=== PATIENT | male | born 1970 | race Hispanic/Latino ===

== ENCOUNTER 2018-01-07 12:43 | Emergency (ER) | payer SELFPAY ==
[2018-01-07 14:12] LABS: Absolute Lymphocytes (CBC) 0.6 K/uL (0.7-4.9); Absolute Monocytes 0.8 K/uL (0.1-1.3); Absolute Neutrophil 12.9 K/uL (1.8-8.0); Basophils % 0.5 % (0-1.3); Hematocrit 41.1 % (39.6-49.0); MCH 25.9 pg (27.0-35.0); MCV 81.9 fL (80-100); MPV 9.6 fL (7.6-11.3); Monocytes % 5.7 % (3.3-12.3); RBC Red Blood Cell Count 5.02 M/uL (4.33-5.43)
[2018-01-07 14:19] LABS: Potassium 4.3 mEq/L (3.6-5.0)
[2018-01-07] MEDS ORDERED: PIPER/TAZO/NS 3.375gm 3.375 GM/100 ML BAG ONE (14:22)
[2018-01-07] MEDS ORDERED: NA CHLORIDE 0.9% 1,000 ML ONE (14:22)
--- NOTE | 2018-01-07 15:03 | RAD REPORT ---
EXAM DESCRIPTION: CT - Soft Tissue Neck W/Contr - 01/07/2018 2:37 pm CLINICAL HISTORY: Sore throat, difficulty speaking, headache, diabetes TECHNIQUE: During dynamic enhancement using 100 milliliters nonionic IV contrast, axial 5 millimeter thick images of the neck were obtained. All CT scans are performed using dose optimization technique as appropriate and may include automated exposure control or mA/KV adjustment according to patient size. FINDINGS: Intracranial portion of the examination is unremarkable. No globe or orbital content abnor mality. Mastoid air cells and paranasal sinuses are without acute finding. No intracranial vascular a bnormality seen. Nasopharyngeal mucosa is symmetric. Masslike thickening is seen in the left-side of the soft palate e xtending inferiorly along the left tonsil. Epiglottis is thickened. There is lobulation and soft tiss ue swelling that continues inferiorly to involve the left-side of the vocal cord. Punctate air densit y is present in the left tonsil. There air densities that extend into the neck soft tissues along the lateral and inferior margin of the thyroid cartilage. A 2.2 x 1.0 focal collection is present in the soft tissues inferior to the thyroid cartilage. This extends along the anterior margin of an otherwi se normal thyroid gland. No parotid or submandibular gland abnormality. Small reactive type lymph nodes are seen in the left-s margarita of the neck. No bulky lymphadenopathy. No destructive bone change. IMPRESSION: Abnormal masslike thickening of the soft tissues extending from the left-side of the sof t palate through the tonsil into the vocal cord. This soft tissue mass component is at least 3-4 cm i n craniocaudal dimension with extension across the midline posterior oropharynx. Abnormal air densities extend from the airway into the soft tissues lateral and inferior to the thyro id cartilage where there is a 2.2 centimeter abscess collection. The abscess collection is positioned along the anterolateral margin between the thyroid cartilage in the thyroid gland. The soft tissue mass and swelling extends across the midline. There is significant narrowing of the s upraglottic airway. While the findings are potentially all infectious in etiology, the collective findings do raise kateryna rn for a primary head and neck malignancy. Multiple left-sided small lymph nodes are present nonspecific. No necrotic lymph node.
[2018-01-07 15:27] LABS: Blood Morphology Comment NOT SEEN (NOT SEEN); Platelet Estimate ADEQ; Urine White Blood Cell Casts OK
[2018-01-07] MEDS ORDERED: FENTANYL CITR 100 MCG/2 ML ONE (15:34)
--- NOTE | 2018-01-07 15:41 | ER ---
Nurse's Notes [facility] Name: Amor Ramírez Jr Age: 47 yrs Sex: Male : 1970 Arrival Date: 01/07/2018 Time: 12:47 Bed 20 Private MD: Diagnosis: Other abscess of pharynx Presentation: 01/07 12:49 Presenting complaint: Presenting complaint: Patient states: Sore throat, difficulty hb speaking, and headache x 3 days. 12:50 Transition of care: patient was not received from another setting of care. Onset of hb symptoms was January 05, 2018. 12:50 Method Of Arrival: Wheelchair hb 12:50 Acuity: YADIEL 3 hb 16:48 Initial Sepsis Screen: Does the patient meet any 2 criteria? No. Patient's initial em sepsis screen is negative. Does the patient have a suspected source of infection? Yes:. Care prior to arrival: None. Historical: - Allergies: 12:52 No Known Allergies; hb - Home Meds: 12:52 Insulin: Novolin R Sub-Q [Active]; Novolin N 100 unit/mL Sub-Q susp [Active]; hb - PMHx: 12:52 Diabetes - NIDDM; hb - PSHx: 12:52 None; hb - Immunization history:: Adult Immunizations up to date. - Social history:: Smoking status: Patient uses tobacco products, denies chronic smoking, but will smoke occasionally. Screenin:50 Abuse screen: Denies threats or abuse. Nutritional screening: No deficits noted. em Tuberculosis screening: No symptoms or risk factors identified. Fall Risk None identified. Assessment: 14:10 General: Appears uncomfortable, Behavior is calm, cooperative. Pain: Complains of pain iw in neck, throat Pain currently is 10 out of 10 on a pain scale. Neuro: Level of Consciousness is awake, alert, obeys commands, Oriented to person, place, time, Moves all extremities. Full function. Respiratory: Airway obstructed, Respiratory effort is even, Respiratory pattern is regular, Breath sounds are clear bilaterally. EENT: Throat is reddened bilaterally with gag reflex present, Reports difficulty swallowing pain when swallowing. 14:10 Derm: Skin is pink, warm \T\ dry. normal. Musculoskeletal: Range of motion: intact in all iw extremities. 15:20 Reassessment: Patient appears in no apparent distress at this time. Patient and/or em family updated on plan of care and expected duration. Pain level reassessed. Patient is alert, oriented x 3, equal unlabored respirations, skin warm/dry/pink. 16:37 Reassessment: Patient appears in no apparent distress at this time. Patient and/or em family updated on plan of care and expected duration. Pain level reassessed. Patient is alert, oriented x 3, equal unlabored respirations, skin warm/dry/pink. c/o pain, Dr. Solis notified, new orders received. 16:50 Reassessment: Patient appears in no apparent distress at this time. report given to em Feroz Burkett RN at [facility], awaiting EMS to transport to facility. 17:15 Reassessment: Patient appears in no apparent distress at this time. Patient and/or em family updated on plan of care and expected duration. Pain level reassessed. Patient is alert, oriented x 3, equal unlabored respirations, skin warm/dry/pink. report given to [facility], pt will be transferred to [facility]. Vital Signs: 12:49 BP 121 / 86; Pulse 123; Resp 16; Temp 100.3(TE); Pulse Ox 100% on R/A; Weight 77.11 kg; hb Height 5 ft. 8 in. (172.72 cm); Pain 10/10; 14:54 Pulse 117; Resp 18; Temp 99.8(O); Pulse Ox 98% on R/A; Pain 10/10; em 16:30 BP 151 / 92; Pulse 124; Resp 20; Pulse Ox 95% on R/A; Pain 8/10; em 12:49 Body Mass Index 25.85 (77.11 kg, 172.72 cm) hb ED Course: 12:47 Patient arrived in ED. mr 12:51 Triage completed. hb 12:52 Arm band placed on left wrist. hb 12:56 Len Solis MD is Attending Physician. gs 12:59 Anderson Quintanilla LVN is Primary Nurse. em 13:50 Patient has correct armband on for positive identification. Bed in low position. Call em light in reach. Side rails up X2. Adult w/ patient. 14:06 Inserted saline lock: 20 gauge in right in left antecubital area, using aseptic iw technique. forearm, using aseptic technique. Blood collected. 14:35 CT completed. Patient taken to an exam room. Patient moved back from CT. cw1 14:37 CT Soft Tissue Neck W/contr In Process Unspecified. EDMS 16:47 No provider procedures requiring assistance completed. Patient transferred, IV remains em in place. Administered Medications: 14:57 Drug: Zosyn 3.375 grams Route: IVPB; Infused Over: 60 mins; Site: right forearm; em 16:49 Follow up: IV Status: Completed infusion; IV Intake: 100ml em 14:57 Drug: NS 0.9% 1000 ml Route: IV; Rate: 1 bolus; Site: right antecubital; em 16:50 Follow up: IV Status: Completed infusion; IV Intake: 1000ml em 15:38 Drug: fentaNYL (PF) 25 mcg Route: IVP; Site: left antecubital; iw 16:03 Follow up: Response: No adverse reaction em 17:07 Drug: fentaNYL (PF) 25 mcg Route: IVP; Site: right forearm; em 17:25 Follow up: Response: No adverse reaction em Intake: 16:49 IV: 100ml; Total: 100ml. em 16:50 IV: 1000ml; Total: 1100ml. em Outcome: 15:40 ER care complete, transfer ordered by . gs 16:49 Transferred by ground EMS to [facility], Transfer form em completed. X-rays sent w/ patient. 16:49 Condition: good 16:49 Instructed on the need for transfer, Demonstrated understanding of instructions. 17:26 Patient left the ED. em Signatures: Dispatcher [employer] EDIL Yenny Baird mr Quintanilla, Anderson, PUTTY AND PATCH WORKER PUTTY AND PATCH WORKER em Kristy Hunt RN RN iw Woodley, Crystal cw1 Verna Bhat RN RN hb Starr, Gregory, MD MD gs Corrections: (The following items were deleted from the chart) 12:51 12:49 Presenting complaint: hb hb 12:52 12:49 Temp 100.3F Temporal; hb hb 15:09 14:10 EENT: Throat iw cynthia
--- NOTE | 2018-01-07 15:41 | EDPHYS ---
Physician Documentation [facility] Name: Amro Ramírez Jr Age: 47 yrs Sex: Male : 1970 Arrival Date: 01/07/2018 Time: 12:47 Bed 20 Private MD: ED Physician Len Solis HPI: 01/07 15:28 This 47 yrs old Male presents to ER via Wheelchair with complaints of Sore gs Throat. 15:34 The patient presents with sore throat, dysphagia. Onset: The symptoms/episode gs began/occurred 4 day(s) ago. Severity of symptoms: At their worst the symptoms were moderate, in the emergency department the symptoms are unchanged. Modifying factors: The symptoms are alleviated by nothing, the symptoms are aggravated by swallowing. Associated signs and symptoms: Pertinent positives: fever. The patient has not experienced similar symptoms in the past. The patient has been recently seen by a physician: out of Town. Historical: - Allergies: 12:52 No Known Allergies; hb - Home Meds: 12:52 Insulin: Novolin R Sub-Q [Active]; Novolin N 100 unit/mL Sub-Q susp [Active]; hb - PMHx: 12:52 Diabetes - NIDDM; hb - PSHx: 12:52 None; hb - Immunization history:: Adult Immunizations up to date. - Social history:: Smoking status: Patient uses tobacco products, denies chronic smoking, but will smoke occasionally. ROS: 15:34 All other systems are negative. gs Exam: 15:34 Head/Face: Normocephalic, atraumatic. Eyes: Pupils equal round and reactive to light, gs extra-ocular motions intact. Lids and lashes normal. Conjunctiva and sclera are non-icteric and not injected. Cornea within normal limits. Periorbital areas with no swelling, redness, or edema. Chest/axilla: Normal chest wall appearance and motion. Nontender with no deformity. No lesions are appreciated. Abdomen/GI: Soft, non-tender, with normal bowel sounds. No distension or tympany. No guarding or rebound. No evidence of tenderness throughout. Back: No spinal tenderness. No costovertebral tenderness. Full range of motion. Skin: Warm, dry with normal turgor. Normal color with no rashes, no lesions, and no evidence of cellulitis. MS/ Extremity: Pulses equal, no cyanosis. Neurovascular intact. Full, normal range of motion. Neuro: Awake and alert, GCS 15, oriented to person, place, time, and situation. Cranial nerves II-XII grossly intact. Motor strength 5/5 in all extremities. Sensory grossly intact. Cerebellar exam normal. Normal gait. 15:34 Constitutional: The patient appears alert, awake. 15:34 ENT: Mouth: mild oral floor swelling nontender, tonsils no mass no uvula shift, submandibular fullness. 15:34 Neck: External neck: swelling, that is mild, of the submental area. 15:34 Respiratory: the patient does not display signs of respiratory distress, Respirations: no acute changes, is not noted, Breath sounds: are clear throughout, stridor, is not appreciated. Vital Signs: 12:49 BP 121 / 86; Pulse 123; Resp 16; Temp 100.3(TE); Pulse Ox 100% on R/A; Weight 77.11 kg; hb Height 5 ft. 8 in. (172.72 cm); Pain 10/10; 14:54 Pulse 117; Resp 18; Temp 99.8(O); Pulse Ox 98% on R/A; Pain 10/10; em 16:30 BP 151 / 92; Pulse 124; Resp 20; Pulse Ox 95% on R/A; Pain 8/10; em 12:49 Body Mass Index 25.85 (77.11 kg, 172.72 cm) hb MDM: 12:59 Patient medically screened. gs 15:34 Differential diagnosis: peritonsillar abscess pharyngitis, retropharyngeal abcess. Data reviewed: vital signs, nurses notes. Response to treatment: the patient's symptoms have mildly improved after treatment. 01/07 13:06 Order name: Strep; Complete Time: 15:25 01/07 13:06 Order name: Flu; Complete Time: 15:25 01/07 13:28 Order name: CBC with Diff; Complete Time: 15:28 01/07 13:28 Order name: Basic Metabolic Panel; Complete Time: 15:25 01/07 13:28 Order name: Blood Culture* 01/07 13:36 Order name: Throat Culture EDPA 01/07 13:28 Order name: CT Soft Tissue Neck W/contr; Complete Time: 15:25 01/07 14:13 Order name: CBC Smear Scan; Complete Time: 15:28 EDMS Administered Medications: 14:57 Drug: Zosyn 3.375 grams Route: IVPB; Infused Over: 60 mins; Site: right forearm; em 16:49 Follow up: IV Status: Completed infusion; IV Intake: 100ml em 14:57 Drug: NS 0.9% 1000 ml Route: IV; Rate: 1 bolus; Site: right antecubital; em 16:50 Follow up: IV Status: Completed infusion; IV Intake: 1000ml em 15:38 Drug: fentaNYL (PF) 25 mcg Route: IVP; Site: left antecubital; iw 16:03 Follow up: Response: No adverse reaction em 17:07 Drug: fentaNYL (PF) 25 mcg Route: IVP; Site: right forearm; em 17:25 Follow up: Response: No adverse reaction em Disposition: 01/07/18 15:40 Transfer ordered to [facility]. Diagnosis is Other abscess of pharynx. - Reason for transfer: Higher level of care. - Accepting physician is young. - Condition is Stable. - Problem is new. - Symptoms are unchanged. Signatures: Dispatcher [employer] EDMS Anderson Quintanilla, FACILITY ASSISTANT FACILITY ASSISTANT Kristy Hunt RN RN Verna Bhat RN RN hb Starr, Gregory, MD MD
[2018-01-07 17:38] VITALS: BP 151/92; O2SAT 95
[2018-01-07 17:39] VITALS: TEMP 99.8
== END 2018-01-07 17:26 | disposition short-term general hospital (02) ==
LOC: ER 12:43
DX: J39.1 Other abscess of pharynx (principal); E11.9 Type 2 diabetes mellitus without complications; Z79.4 Long term (current) use of insulin; Z72.0 Tobacco use
CPT/HCPCS: 36415; 70491; 80048; 82962; 85025; 87040; 87070; 87081; 87804; 99285; J2543; J3010; J7030; Q9967

== ENCOUNTER 2018-07-16 15:48 | Emergency (ER) | payer SELFPAY ==
[2018-07-16] MEDS ORDERED: NA CHLORIDE 0.9% 1,000 ML ONE (16:46)
[2018-07-16] MEDS ORDERED: MEPERIDINE HCL 50 MG/ML AMP ONE (16:46)
[2018-07-16 16:53] LABS: Absolute Lymphocytes (CBC) 1.6 K/uL (0.7-4.9); Absolute Monocytes 0.5 K/uL (0.1-1.3); Basophils % 0.8 % (0-1.3); Eosinophils % 2.9 % (0-4.4); Lymphocytes % 18.9 % (15.3-44.8); MCH 26.8 pg (27.0-35.0); MPV 9.4 fL (7.6-11.3); Monocytes % 6.2 % (3.3-12.3); RBC Red Blood Cell Count 5.06 M/uL (4.33-5.43)
[2018-07-16 17:10] LABS: Potassium 3.7 mmol/L (3.5-5.1)
--- NOTE | 2018-07-16 17:40 | RAD REPORT ---
EXAM DESCRIPTION: CT - Head Brain Wo Cont - 07/16/2018 5:33 pm CLINICAL HISTORY: HEADACHE COMPARISON: Head angio dated 07/16/2018; Soft Tissue Neck W/Contr dated 01/07/2018; Head C Spine Mpr W o Con dated 01/03/2016 TECHNIQUE: All CT scans are performed using dose optimization technique as appropriate and may inclu de automated exposure control or mA/KV adjustment according to patient size. FINDINGS: No intracranial hemorrhage, hydrocephalus or extra-axial fluid collection.No areas of brai n edema or evidence of midline shift. Hyperdense left vitreous noted. The paranasal sinuses and mastoids are clear. The calvarium is intact. IMPRESSION: No acute intracranial abnormality. Hyperdense left vitreous noted which may represent blood product or be related to retinal detachment. Clinical correlation is advised.
--- NOTE | 2018-07-16 17:45 | RAD REPORT ---
EXAM DESCRIPTION: CT - Soft Tissue Neck W/Contr CLINICAL HISTORY: left neck pain, hx of neck abscess COMPARISON: Soft Tissue Neck W/Contr dated 01/07/2018; Head C Spine Mpr Wo Con dated 01/03/[address] scans are performed using dose optimization technique as appropriate and may includ e automated exposure control or mA/KV adjustment according to patient size. FINDINGS: The adenoidal tissues are mildly prominent. Fossa Rosenmller are normal. Parapharyngeal fat triangles are symmetric. Tongue base structures are normal. [place] tonsils appea r moderately enlarged. Epiglottis and aryepiglottic folds are normal. Piriform sinuses are well aerated. A few mildly promin ent jugular chain lymph nodes are seen bilaterally. The vocal cords are normal in appearance. Salivary glands are normal in appearance. Upper lung dominguez are clear. Included intracranial contents are unremarkable. IMPRESSION: A neck abscess is not present. Moderate tonsillar enlargement is noted.
--- NOTE | 2018-07-16 17:47 | RAD REPORT ---
EXAM DESCRIPTION: CT - Head angio - 07/16/2018 5:34 pm CLINICAL HISTORY: facial pain Headache COMPARISON: No comparisons TECHNIQUE: CT angiography of the head was performed with MIPs. All CT scans are performed using dose optimization technique as appropriate and may include automated exposure control or mA/KV adjustment according to patient size. FINDINGS: No evidence of aneurysm is detected. No flow-limiting stenosis or vascular malformation id entified. Antegrade flow is seen in the vertebral arteries. Antegrade flow is seen in both vertebral arteries, mildly left-sided dominant. The visualized dural venous sinuses are patent. IMPRESSION: No significant flow abnormality is detected.
[2018-07-16] MEDS ORDERED: IBUPROFEN 400 MG TAB ONE (18:15)
[2018-07-16] MEDS ORDERED: CLINDAMYCIN HCL 150 MG CAP ONE (18:15)
[2018-07-16] MEDS ORDERED: DEXAMETHASONE 4 MG/ML VIAL ONE (18:16)
[2018-07-16] MEDS ORDERED: NA CHLORIDE 0.9% 50 ML IV ONE (18:16)
--- NOTE | 2018-07-16 18:29 | EDPHYS ---
Physician Documentation [facility] Name: Amor Ramírez Jr Age: 48 yrs Sex: Male : 1970 Arrival Date: 07/16/2018 Time: 15:53 Bed 26 Private MD: ED Physician Tanner Cortes HPI: 07/16 16:26 This 48 yrs old Male presents to ER via Wheelchair with complaints of rn headache, neck pain. 16:26 The patient complains of pain to the left evangelical and left jaw. Onset: The rn symptoms/episode began/occurred 1 hour(s) ago. Associated signs and symptoms: Pertinent positives: This patient does not have any pertinent positive signs or symptoms associated with a headache. Pertinent negatives: altered mental status, fever, neck stiffness, rash, vision changes, vision loss, vomiting. Severity of symptoms: At its worst the pain was moderate, in the emergency department the pain is unchanged. The patient has experienced a previous episode. Reports sudden onset left neck pain, radiates up to head, having neck and head pain, no trauma, no fever, similar episode in past when had neck abscess that required drainage in OR, so came in for eval. No trouble breathing or swallowing. NO chest pain. No focal neurological complaint. . Historical: - Allergies: 16:08 NKDA; iw - PMHx: 16:08 Diabetes - IDDM; iw - PSHx: 16:08 left eye; throat; iw - Immunization history:: Adult Immunizations up to date. - Social history:: Smoking status: Patient/guardian denies using tobacco. - Ebola Screening: : Patient negative for fever greater than or equal to 101.5 degrees Fahrenheit, and additional compatible Ebola Virus Disease symptoms Patient denies exposure to infectious person Patient denies travel to an Ebola-affected area in the 21 days before illness onset No symptoms or risks identified at this time. - Family history:: not pertinent. - Hospitalizations: : No recent hospitalization is reported. ROS: 16:26 Constitutional: Negative for fever, chills, and weight loss, Eyes: Negative for injury, rn pain, redness, and discharge, Neck: + left neck pain Cardiovascular: Negative for chest pain, palpitations, and edema, Respiratory: Negative for shortness of breath, cough, wheezing, and pleuritic chest pain, Abdomen/GI: Negative for abdominal pain, nausea, vomiting, diarrhea, and constipation, MS/Extremity: Negative for injury and deformity, Skin: Negative for injury, rash, and discoloration, Neuro: + headache, no weakness/numbness Exam: 16:26 Constitutional: This is a well developed, well nourished patient who is awake, alert, rn blotting his face with wet towels. Head/Face: Normocephalic, atraumatic. Eyes: Botyh pupils are both surgically corrected, reactive to light, full EOMI. ENT: No pharyngeal abnormality, no stridor, MMM Neck: + bilateral cervical tender LAD, no crepitus, no fluctuant mass Cardiovascular: Regular rate and rhythm with a normal S1 and S2. No pulse deficits. Respiratory: Lungs have equal breath sounds bilaterally, clear to auscultation. No increased work of breathing, no retractions or nasal flaring. Abdomen/GI: Soft, non-tender, No evidence of tenderness throughout. MS/ Extremity: Pulses equal, no cyanosis. Neurovascular intact. Neuro: Awake and alert, GCS 15, oriented to person, place, time, and situation. Cranial nerves II-XII grossly intact. Motor strength 5/5 in all extremities. Sensory grossly intact. Vital Signs: 16:08 BP 157 / 105; Pulse 96; Resp 16; Temp 97.8(O); Pulse Ox 99% on R/A; Weight 83.01 kg; iw Height 5 ft. 9 in. (175.26 cm); Pain 10/10; 16:10 BP 159 / 103; Pulse 99; Resp 18; Pulse Ox 99% on R/A; tl3 17:20 BP 153 / 112; Pulse 99; Resp 18; Pulse Ox 100% on R/A; tl3 18:49 BP 165 / 109; Pulse 105; Resp 18; Pulse Ox 97% on R/A; tl3 16:08 Body Mass Index 27.02 (83.01 kg, 175.26 cm) iw Truxton Coma Score: 18:01 Eye Response: spontaneous(4). Verbal Response: oriented(5). Motor Response: obeys rn commands(6). Total: 15. MDM: 16:10 Patient medically screened. rn 18:01 Differential diagnosis: migraine, sinusitis, tension headache, vasomotor headache, rn lymphadenitis, radiculopathmehrdad. Data reviewed: vital signs, nurses notes, lab test result(s), radiologic studies, CT scan, and as a result, I will discharge patient. Counseling: I had a detailed discussion with the patient and/or guardian regarding: the historical points, exam findings, and any diagnostic results supporting the discharge/admit diagnosis, lab results, radiology results, the need for outpatient follow up, to return to the emergency department if symptoms worsen or persist or if there are any questions or concerns that arise at home. 18:27 Response to treatment: the patient's symptoms have markedly improved after treatment, rn and as a result, I will discharge patient. Special discussion: I discussed with the patient/guardian in detail that at this point there is no indication for admission to the hospital. It is understood, however, that if the symptoms persist or worsen the patient needs to return immediately for re-evaluation. 07/16 16:19 Order name: CBC with Diff; Complete Time: 17:18 07/16 16:19 Order name: Basic Metabolic Panel; Complete Time: 17:12 07/16 16:19 Order name: PT-INR; Complete Time: 17:18 07/16 16:19 Order name: Ptt, Activated; Complete Time: 17:18 07/16 16:49 Order name: Strep; Complete Time: 18:15 07/16 17:55 Order name: Throat Culture [facility] 07/16 16:19 Order name: CT Head Brain wo Cont; Complete Time: 17:50 rn 07/16 16:19 Order name: CT Soft Tissue Neck W/contr; Complete Time: 17:50 07/16 16:34 Order name: Head angio; Complete Time: 17:50 [facility] 07/16 16:19 Order name: IV Start; Complete Time: 17:24 rn Administered Medications: 16:50 Drug: Demerol 50 mg Route: IVP; Infused Over: 2 mins; Site: right antecubital; tl3 18:05 Follow up: Response: No adverse reaction; Marked relief of symptoms mg2 18:06 Follow up: Response: Marked relief of symptoms; Pain is decreased tl3 16:50 Drug: NS 0.9% 1000 ml Route: IV; Rate: 1000 ml; Site: right antecubital; Delivery: tl3 Primary tubing; 18:52 Follow up: IV Status: Completed infusion; IV Intake: 1000ml tl3 18:11 Drug: Decadron - Dexamethasone 10 mg Route: IVP; Site: right antecubital; tl3 18:50 Follow up: Response: No adverse reaction tl3 18:11 Drug: Clindamycin 300 mg Route: PO; tl3 18:50 Follow up: Response: No adverse reaction tl3 18:11 Drug: Motrin 800 mg Route: PO; tl3 18:50 Follow up: Response: No adverse reaction tl3 Disposition: 07/16/18 18:28 Discharged to Home. Impression: Nonspecific lymphadenitis, Headache. - Condition is Stable. - Discharge Instructions: General Headache Without Cause, Hypertension, Lymphadenopathy. - Prescriptions for Clindamycin HCl 300 mg Oral Capsule - take 1 capsule by ORAL route every 6 hours for 10 days; 40 capsule. Tylenol- Codeine #3 300-30 mg Oral Tablet - take 1 tablet by ORAL route every 6 hours As needed; 15 tablet. - Medication Reconciliation Form, Thank You Letter, Antibiotic Education, Prescription Opioid Use form. - Follow up: Private Physician; When: As needed; Reason: Recheck today's complaints, Re-evaluation by your physician. - Problem is new. - Symptoms have improved. Signatures: Dispatcher [employer] EDKristy Valle RN RN iw Tanner Cotres MD MD rn Lowrey, Tammy, RN RN 3 Radu Hopkins RN [facility] Corrections: (The following items were deleted from the chart) 18:51 18:28 07/16/2018 18:28 Discharged to Home. Impression: Nonspecific lymphadenitis; tl3 Headache. Condition is Stable. Discharge Instructions: Lymphadenopathy. Prescriptions for Clindamycin HCl 300 mg Oral Capsule - take 1 capsule by ORAL route every 6 hours for 10 days; 40 capsule. and Forms are Medication Reconciliation Form, Thank You Letter, Antibiotic Education, Prescription Opioid Use. Follow up: Private Physician; When: As needed; Reason: Recheck today's complaints, Re-evaluation by your physician. Problem is new. Symptoms have improved. rn
--- NOTE | 2018-07-16 18:29 | ER ---
Nurse's Notes [facility] Name: Amor Ramírez Jr Age: 48 yrs Sex: Male : 1970 Arrival Date: 07/16/2018 Time: 15:53 Bed 26 Private MD: Diagnosis: Nonspecific lymphadenitis;Headache Presentation: 07/16 16:03 Presenting complaint: Patient states: c/o pain to left temporal area and left side of iw throat started 1 hour ago, had retinal surgery two weeks ago in [place], denies eye pain or problems with vision, also had an abscess in his throat in December that had to be drained, pain feels similar. Transition of care: patient was not received from another setting of care. Onset of symptoms was July 16, 2018. Risk Assessment: Do you want to hurt yourself or someone else? Patient reports no desire to harm self or others. Initial Sepsis Screen: Does the patient meet any 2 criteria? No. Patient's initial sepsis screen is negative. Does the patient have a suspected source of infection? No. Patient's initial sepsis screen is negative. Care prior to arrival: None. 16:03 Method Of Arrival: Wheelchair iw 16:03 Acuity: YAIDEL 3 iw Historical: - Allergies: 16:08 NKDA; iw - PMHx: 16:08 Diabetes - IDDM; iw - PSHx: 16:08 left eye; throat; iw - Immunization history:: Adult Immunizations up to date. - Social history:: Smoking status: Patient/guardian denies using tobacco. - Ebola Screening: : Patient negative for fever greater than or equal to 101.5 degrees Fahrenheit, and additional compatible Ebola Virus Disease symptoms Patient denies exposure to infectious person Patient denies travel to an Ebola-affected area in the 21 days before illness onset No symptoms or risks identified at this time. - Family history:: not pertinent. - Hospitalizations: : No recent hospitalization is reported. Screenin:09 Abuse screen: Denies threats or abuse. Denies injuries from another. Nutritional iw screening: No deficits noted. Tuberculosis screening: No symptoms or risk factors identified. Fall Risk None identified. Assessment: 16:10 General: Appears uncomfortable, well groomed, well developed, well nourished, Behavior tl3 is calm, cooperative, appropriate for age. Pain: Complains of pain in left jaw and left taoism. Neuro: Level of Consciousness is awake, alert, obeys commands, Oriented to person, place, time, situation, Appropriate for age. Cardiovascular: Patient's skin is warm and dry. Respiratory: Airway is patent Respiratory effort is even, unlabored, Respiratory pattern is regular, symmetrical. GI: No signs and/or symptoms were reported involving the gastrointestinal system. : No signs and/or symptoms were reported regarding the genitourinary system. EENT: Reports pain in left taoism and left jaw. Derm: No signs and/or symptoms reported regarding the dermatologic system. 17:20 Reassessment: No changes from previously documented assessment. Patient and/or family tl3 updated on plan of care and expected duration. Pain level reassessed. Patient is alert, oriented x 3, equal unlabored respirations, skin warm/dry/pink. pt to CT, Dr Cortes discussing lab results and POC with family. 18:49 Reassessment: No changes from previously documented assessment. Patient and/or family tl3 updated on plan of care and expected duration. Pain level reassessed. Vital Signs: 16:08 BP 157 / 105; Pulse 96; Resp 16; Temp 97.8(O); Pulse Ox 99% on R/A; Weight 83.01 kg; iw Height 5 ft. 9 in. (175.26 cm); Pain 10/10; 16:10 BP 159 / 103; Pulse 99; Resp 18; Pulse Ox 99% on R/A; tl3 17:20 BP 153 / 112; Pulse 99; Resp 18; Pulse Ox 100% on R/A; tl3 18:49 BP 165 / 109; Pulse 105; Resp 18; Pulse Ox 97% on R/A; tl3 16:08 Body Mass Index 27.02 (83.01 kg, 175.26 cm) iw Kayleigh Coma Score: 18:01 Eye Response: spontaneous(4). Verbal Response: oriented(5). Motor Response: obeys rn commands(6). Total: 15. ED Course: 15:53 Patient arrived in ED. mr 16:06 Minda Phillip, RN is Primary Nurse. tl3 16:08 Triage completed. iw 16:08 Arm band placed on. iw 16:10 Tanner Cortes MD is Attending Physician. rn 16:10 Patient has correct armband on for positive identification. tl3 16:10 No provider procedures requiring assistance completed. Initial lab(s) drawn, by me, tl3 sent to lab. Strep swab sent to lab. Inserted saline lock: 18 gauge in right antecubital area, using aseptic technique. Blood collected. 16:23 Radiology exam delayed due to lab results not completed at this time. (BUN/Creatinine). vm2 17:[address] tl3 17:23 Head angio Sent. tl3 17:33 CT Head Brain wo Cont In Process Unspecified. EDMS 17:34 CT Soft Tissue Neck W/contr In Process Unspecified. EDMS 17:34 Head angio In Process Unspecified. EDMS 18:00 Throat Culture Sent. tl3 18:49 IV discontinued, intact, bleeding controlled, No redness/swelling at site. Pressure tl3 dressing applied. Administered Medications: 16:50 Drug: Demerol 50 mg Route: IVP; Infused Over: 2 mins; Site: right antecubital; tl3 18:05 Follow up: Response: No adverse reaction; Marked relief of symptoms mg2 18:06 Follow up: Response: Marked relief of symptoms; Pain is decreased tl3 16:50 Drug: NS 0.9% 1000 ml Route: IV; Rate: 1000 ml; Site: right antecubital; Delivery: tl3 Primary tubing; 18:52 Follow up: IV Status: Completed infusion; IV Intake: 1000ml tl3 18:11 Drug: Decadron - Dexamethasone 10 mg Route: IVP; Site: right antecubital; tl3 18:50 Follow up: Response: No adverse reaction tl3 18:11 Drug: Clindamycin 300 mg Route: PO; tl3 18:50 Follow up: Response: No adverse reaction tl3 18:11 Drug: Motrin 800 mg Route: PO; tl3 18:50 Follow up: Response: No adverse reaction tl3 Intake: 18:52 IV: 1000ml; Total: 1000ml. tl3 Outcome: 18:28 Discharge ordered by . rn 18:49 Discharged to home via wheelchair. tl3 18:49 Condition: stable 18:49 Discharge instructions given to patient, family, Instructed on discharge instructions, follow up and referral plans. medication usage, Demonstrated understanding of instructions, follow-up care, medications, Prescriptions given X 2. 18:51 Patient left the ED. tl3 Signatures: Dispatcher [employer] Beverly Monahan Kristy Hunt, RN RN Tanner Sofia MD MD rn McGuire, [facility] Minda Phillip RN RN tl3 Radu Hopkins RN RN mg2
[2018-07-16 19:36] VITALS: TEMP 97.8
[2018-07-16 19:40] VITALS: BP 165/109; O2SAT 97
== END 2018-07-16 18:51 | disposition home or self-care (01) ==
LOC: ER 15:48
DX: I88.0 Nonspecific mesenteric lymphadenitis (principal)
CPT/HCPCS: 36415; 70450; 70491; 70496; 80048; 85025; 85610; 85730; 87070; 87081; 96361; 96374; 96375; 99284; J2175; J7030; Q9967

== ENCOUNTER 2018-10-20 08:11 | Emergency (ER) | payer SELFPAY ==
[2018-10-20] MEDS ORDERED: NA CHLORIDE 0.9% 1,000 ML ONE (08:41)
[2018-10-20] MEDS ORDERED: LEVALBUTEROL 1.25 MG/3 ML NEB ONE (08:41)
--- NOTE | 2018-10-20 08:58 | EDPHYS ---
Physician Documentation [facility] Name: Amor Ramírez Jr Age: 48 yrs Sex: Male : 1970 Arrival Date: 10/20/2018 Time: 08:13 Bed 14 Private MD: SUMIT BENTON ED Physician Tanner Cortes HPI: 10/20 08:26 This 48 yrs old Male presents to ER via Ambulatory with complaints of Cold rn Symptoms. 08:26 The patient or guardian reports cough, that is intermittent, described as mild, with no rn sputum, flu symptoms. Onset: The symptoms/episode began/occurred yesterday. Severity of symptoms: At their worst the symptoms were mild, in the emergency department the symptoms are unchanged. Modifying factors: The symptoms are alleviated by nothing, the symptoms are aggravated by nothing. The patient has not experienced similar symptoms in the past. The patient has not recently seen a physician. Reports flu like symptoms, began yesterday, + fever/chills/runny nose/cough/muscle aches/fatigue. . Historical: - Allergies: 08:24 NKDA; hb - Home Meds: 08:24 Insulin: Novolin R Sub-Q [Active]; Novolin N 100 unit/mL Sub-Q susp [Active]; hb - PMHx: 08:24 Diabetes - IDDM; hb - PSHx: 08:24 left eye; throat; hb - Immunization history:: Adult Immunizations up to date. - Social history:: Smoking status: Patient uses tobacco products, denies chronic smoking, but will smoke occasionally. - Ebola Screening: : No symptoms or risks identified at this time. - Family history:: not pertinent. - Hospitalizations: : No recent hospitalization is reported. 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 Walking to room without difficulty Head/Face: Normocephalic, atraumatic. Eyes: Pupils equal round and reactive to light, extra-ocular motions intact. Lids and lashes normal. Conjunctiva and sclera are non-icteric and not injected. Cornea within normal limits. Periorbital areas with no swelling, redness, or edema. ENT: clear nasal drainage Cardiovascular: Tachycardic, regular, no murmur Respiratory: Faint exp wheezing, no retractions, speaking full sentences Abdomen/GI: soft, non-tender MS/ Extremity: Pulses equal, no cyanosis. Neurovascular intact. Full, normal range of motion. Equal circumference. Neuro: Awake and alert, GCS 15, oriented to person, place, time, and situation. Cranial nerves II-XII grossly intact. Motor strength 5/5 in all extremities. Sensory grossly intact. Cerebellar exam normal. Normal gait. Vital Signs: 08:23 BP 154 / 113; Pulse 97; Resp 20; Temp 99.6(TE); Pulse Ox 98% on R/A; Pain 8/10; hb 09:12 BP 169 / 117; Pulse 128; Resp 19; Pulse Ox 95% on R/A; rb1 MDM: 08:18 Patient medically screened. rn 08:57 Differential Diagnosis: Bronchitis Influenza Upper Respiratory Infection Viral Syndrome rn Pneumonia. Data reviewed: vital signs, nurses notes, lab test result(s), radiologic studies, plain films, and as a result, I will discharge patient. Counseling: I had a detailed discussion with the patient and/or guardian regarding: the historical points, exam findings, and any diagnostic results supporting the discharge/admit diagnosis, lab results, radiology results, the need for outpatient follow up, to return to the emergency department if symptoms worsen or persist or if there are any questions or concerns that arise at home. Special discussion: I discussed with the patient/guardian in detail that at this point there is no indication for admission to the hospital. It is understood, however, that if the symptoms persist or worsen the patient needs to return immediately for re-evaluation. 10/20 08:24 Order name: Flu; Complete Time: 08:56 rn 10/20 08:24 Order name: Strep; Complete Time: 08:56 rn 10/20 09:10 Order name: Chest Single View EDHI 10/20 09:40 Order name: Throat Culture EDHI 10/20 08:24 Order name: IV Start; Complete Time: 08:44 rn Administered Medications: 08:40 Drug: Xopenex 1.25 mg Route: Inhalation; rb1 08:40 Drug: NS 0.9% 1000 ml Route: IV; Rate: 1000 ml; Site: left antecubital; rb1 09:59 Follow up: IV Status: Completed infusion rb1 Disposition: 10/20/18 08:57 Discharged to Home. Impression: Influenza due to identified novel influenza A virus. - Condition is Stable. - Discharge Instructions: Influenza, Adult. - Prescriptions for Tamiflu 75 mg Oral Capsule - take 1 capsule by ORAL route every 12 hours for 5 days; 10 capsule. Albuterol Sulfate 90 mcg/actuation - inhale 1-2 puff by INHALATION route every 4-6 hours; 1 Inhaler. - Medication Reconciliation Form, Thank You Letter, Antibiotic Education, Prescription Opioid Use form. - Follow up: Private Physician; When: As needed; Reason: Recheck today's complaints, Re-evaluation by your physician. - Problem is new. - Symptoms have improved. Signatures: Dispatcher [employer] [facility] Tanner Cortes MD MD rn Barber, Rebecca, RN RN rb1 Verna Bhat RN RN Corrections: (The following items were deleted from the chart) 09:10 08:24 Chest Pa And Lat (2 Views)+RAD.RAD.[email or web address] ordered. [facility] 10:01 08:57 10/20/2018 08:57 Discharged to Home. Impression: Influenza due to identified rb1 novel influenza A virus. Condition is Stable. Forms are Medication Reconciliation Form, Thank You Letter, Antibiotic Education, Prescription Opioid Use. Follow up: Private Physician; When: As needed; Reason: Recheck today's complaints, Re-evaluation by your physician. Problem is new. Symptoms have improved. rn
--- NOTE | 2018-10-20 08:58 | ER ---
Nurse's Notes [facility] Name: Amor Ramírez Jr Age: 48 yrs Sex: Male : 1970 Arrival Date: 10/20/2018 Time: 08:13 Bed 14 Private MD: SUMIT BENTON Diagnosis: Influenza due to identified novel influenza A virus Presentation: 10/20 08:20 Initial Sepsis Screen: Does the patient meet any 2 criteria? No. Patient's initial rb1 sepsis screen is negative. Does the patient have a suspected source of infection? Yes: Productive cough/pneumonia. 08:24 Presenting complaint: Patient states: Body aches, headache, sore throat, malaise, hb nonproductive cough x 4 days. Transition of care: patient was not received from another setting of care. Onset of symptoms was October 16, 2018. Risk Assessment: Do you want to hurt yourself or someone else? Patient reports no desire to harm self or others. Care prior to arrival: None. 08:24 Method Of Arrival: Ambulatory hb 08:24 Acuity: YADIEL 3 hb Historical: - Allergies: 08:24 NKDA; hb - Home Meds: 08:24 Insulin: Novolin R Sub-Q [Active]; Novolin N 100 unit/mL Sub-Q susp [Active]; hb - PMHx: 08:24 Diabetes - IDDM; hb - PSHx: 08:24 left eye; throat; hb - Immunization history:: Adult Immunizations up to date. - Social history:: Smoking status: Patient uses tobacco products, denies chronic smoking, but will smoke occasionally. - Ebola Screening: : No symptoms or risks identified at this time. - Family history:: not pertinent. - Hospitalizations: : No recent hospitalization is reported. Screenin:25 Abuse screen: Denies threats or abuse. Denies injuries from another. Nutritional hb screening: No deficits noted. Tuberculosis screening: No symptoms or risk factors identified. Fall Risk None identified. Assessment: 08:20 General: Appears uncomfortable, Behavior is calm, cooperative, Reports chills for fever rb1 for feeling ill for fatigue for 1-2 days. Pain: Complains of pain in throat and bodyaches Pain currently is 9 out of 10 on a pain scale. Pain began 1 day ago. Neuro: Level of Consciousness is awake, alert, obeys commands, Oriented to person, place, time, situation. Cardiovascular: Capillary refill < 3 seconds is brisk in bilateral fingers. Respiratory: Reports cough that is productive, yellow Airway is patent Respiratory effort is even, unlabored, Respiratory pattern is regular, symmetrical. GI: Reports nausea. : No signs and/or symptoms were reported regarding the genitourinary system. Derm: Skin is dry, Skin is normal, Skin temperature is warm. 09:09 Reassessment: Patient appears in no apparent distress at this time. No changes from rb1 previously documented assessment. Discharge pending due to chest X-ray being done and IV fluids are infusing. 09:12 Reassessment: X-ray at bedside. rb1 09:59 Reassessment: Patient appears in no apparent distress at this time. Patient and/or rb1 family updated on plan of care and expected duration. Pain level reassessed. Patient is alert, oriented x 3, equal unlabored respirations, skin warm/dry/pink. Vital Signs: 08:23 BP 154 / 113; Pulse 97; Resp 20; Temp 99.6(TE); Pulse Ox 98% on R/A; Pain 8/10; hb 09:12 BP 169 / 117; Pulse 128; Resp 19; Pulse Ox 95% on R/A; rb1 ED Course: 08:13 Patient arrived in ED. sb2 08:14 SUMIT BENTON is Private Physician. sb2 08:18 Tanner Cortes MD is Attending Physician. rn 08:20 Pulse ox on. NIBP on. rb1 08:25 Triage completed. hb 08:25 Amy Ayon, RN is Primary Nurse. rb1 08:25 Arm band placed on. hb 08:25 Patient has correct armband on for positive identification. Bed in low position. Call rb1 light in reach. Side rails up X 1. 08:30 Inserted saline lock: 22 gauge in left antecubital area, using aseptic technique. Blood rb1 collected. 09:11 X-ray completed. Portable x-ray completed in exam room. Patient tolerated procedure sg4 well. 09:38 Chest Single View In Process Unspecified. EDMS 10:00 No provider procedures requiring assistance completed. rb1 10:00 IV discontinued, intact, bleeding controlled, No redness/swelling at site. Pressure rb1 dressing applied. Administered Medications: 08:40 Drug: Xopenex 1.25 mg Route: Inhalation; rb1 08:40 Drug: NS 0.9% 1000 ml Route: IV; Rate: 1000 ml; Site: left antecubital; rb1 09:59 Follow up: IV Status: Completed infusion rb1 Outcome: 08:57 Discharge ordered by MD. rn 10:00 Discharged to home ambulatory, with family. rb1 10:00 Condition: stable 10:00 Discharge instructions given to patient, Instructed on discharge instructions, follow up and referral plans. medication usage, Demonstrated understanding of instructions, follow-up care, medications, Prescriptions given X 2. 10:01 Patient left the ED. rb1 Signatures: Dispatcher [employer] EDMS Tanner Cortes MD MD rn Barber, Rebecca, RN RN rb1 Verna Bhat RN RN Josseline Levy 2 Ashley Rousseau sg4 Corrections: (The following items were deleted from the chart) 08:25 08:25 EKG completed in triage. Results shown to MD. garrett hb
[2018-10-20 10:09] VITALS: TEMP 99.6
[2018-10-20 10:10] VITALS: BP 169/117; O2SAT 95
--- NOTE | 2018-10-20 10:53 | RAD REPORT ---
EXAM DESCRIPTION: Tania Single View10/20/2018 9:38 am CLINICAL HISTORY: Cough COMPARISON: 2011 FINDINGS: The lungs appear clear of acute infiltrate. The heart is normal size IMPRESSION: No acute abnormalities displayed
== END 2018-10-20 10:01 | disposition home or self-care (01) ==
LOC: ER 08:11
DX: J10.1 Influenza due to other identified influenza virus with other respiratory manifestations (principal); E11.9 Type 2 diabetes mellitus without complications; Z79.4 Long term (current) use of insulin; Z72.0 Tobacco use
CPT/HCPCS: 71045; 87070; 87081; 87804; 96360; 99284; J7030

== ENCOUNTER 2019-03-11 17:07 | Emergency (ER) | payer SELFPAY ==
[2019-03-11 18:11] LABS: Absolute Lymphocytes (CBC) 2.3 K/uL (0.7-4.9); Basophils % 0.7 % (0-1.3); Eosinophils % 3.5 % (0-4.4); Hematocrit 44.5 % (39.6-49.0); Lymphocytes % 28.2 % (15.3-44.8); MPV 9.6 fL (7.6-11.3); Monocytes % 7.5 % (3.3-12.3); RBC Red Blood Cell Count 5.55 M/uL (4.33-5.43)
[2019-03-11 18:17] LABS: Protime INR 1.05
[2019-03-11 18:29] LABS: ALT/SGPT 49 U/L (12-78); AST/SGOT 45 U/L (15-37); Albumin 2.5 g/dL (3.4-5.0); Alkaline Phosphatase 71 U/L (45-117); BUN Blood Urea Nitrogen 29 mg/dL (7-18); Bicarbonate 30 mmol/L (21-32); Bilirubin Direct < 0.1 mg/dL (0-0.2); Bilirubin Total 0.1 mg/dL (0.2-1.0); Glucose Level 67 mg/dL (74-106); Magnesium 2.1 mg/dL (1.8-2.4); NT PRO-BNP 160 pg/mL (<125); Potassium 3.9 mmol/L (3.5-5.1); Protein, Total 6.5 g/dL (6.4-8.2); Sodium Level 144 mmol/L (136-145); Troponin (Emerg Dept Use Only) < 0.02 ng/mL (0.0-0.045)
--- NOTE | 2019-03-11 18:53 | RAD REPORT ---
EXAM DESCRIPTION: Tania Single View03/11/2019 6:38 pm CLINICAL HISTORY: Chest pain COMPARISON: October 2018 FINDINGS: The lungs appear clear of acute infiltrate. The heart is normal size IMPRESSION: No acute abnormalities displayed
[2019-03-11 19:12] LABS: Urine Blood 1+ (NEG); Urine Glucose 2+ (NEG); Urine Protein 3+ (NEG); Urine Specific Gravity >1.030 (1.005-1.030); Urine pH 5.5 (5.0-7.0)
[2019-03-11 19:30] LABS: Urine Bacteria <20 /HPF (NONE SEEN); Urine Culture Reflex Order REFLEXED; Urine Mucus SLIGHT /HPF (NONE SEEN); Urine RBC <5 /HPF (NONE SEEN)
--- NOTE | 2019-03-11 20:22 | ER ---
Nurse's Notes [facility] Name: Amor Ramírez Jr Age: 48 yrs Sex: Male : 1970 Arrival Date: 03/11/2019 Time: 17:10 Bed 23 Private MD: Diagnosis: lightheadedness Presentation: 03/11 17:11 Presenting complaint: Patient states: i got dizzy since this morning especially when i hj stand up and I'm short of breath every after 5 steps; reports headache on the occiptal area; denies N/V; denies fever and chills; denies chest pain;. Transition of care: patient was not received from another setting of care. Onset of symptoms was March 11, 2019. Risk Assessment: Do you want to hurt yourself or someone else? Patient reports no desire to harm self or others. Initial Sepsis Screen: Does the patient meet any 2 criteria? No. Patient's initial sepsis screen is negative. Does the patient have a suspected source of infection? No. Patient's initial sepsis screen is negative. Care prior to arrival: None. 17:11 Method Of Arrival: Ambulatory 17:11 Acuity: YADIEL 3 hj Historical: - Allergies: 17:13 NKDA; hj - PMHx: 17:13 Diabetes - IDDM; hj - PSHx: 17:13 left eye; throat; hj - Immunization history:: Adult Immunizations. - Ebola Screening: : Patient denies travel to an Ebola-affected area in the 21 days before illness onset. Screenin:22 Abuse screen: Denies threats or abuse. Denies injuries from another. Nutritional aj1 screening: No deficits noted. Tuberculosis screening: No symptoms or risk factors identified. 20:39 Fall Risk None identified. aj1 Assessment: 17:22 General: Appears in no apparent distress. uncomfortable, Behavior is calm, cooperative, aj1 appropriate for age. Pain: Complains of pain in occipital area Pain does not radiate. Pain currently is 6 out of 10 on a pain scale. at worst was 8 out of 10 on a pain scale. Quality of pain is described as aching, Pain began this morning. Neuro: Level of Consciousness is awake, alert, obeys commands, Oriented to person, place, time, situation, Reports dizziness, headache. Cardiovascular: Heart tones S1 S2 present Patient's skin is warm and dry. Rhythm is sinus rhythm. Respiratory: Reports shortness of breath Airway is patent Respiratory effort is even, unlabored, Respiratory pattern is regular, symmetrical. GI: No signs and/or symptoms were reported involving the gastrointestinal system. : No signs and/or symptoms were reported regarding the genitourinary system. EENT: No signs and/or symptoms were reported regarding the EENT system. Derm: No signs and/or symptoms reported regarding the dermatologic system. Skin is pink, warm \T\ dry. normal. Musculoskeletal: No signs and/or symptoms reported regarding the musculoskeletal system. Circulation, motion, and sensation intact. 18:34 Reassessment: Patient appears in no apparent distress at this time. No changes from [facility] previously documented assessment. Patient and/or family updated on plan of care and expected duration. Pain level reassessed. Patient is alert, oriented x 3, equal unlabored respirations, skin warm/dry/pink. 19:30 Reassessment: Patient appears in no apparent distress at this time. No changes from [facility] previously documented assessment. Patient and/or family updated on plan of care and expected duration. Pain level reassessed. Patient is alert, oriented x 3, equal unlabored respirations, skin warm/dry/pink. 20:15 Reassessment: Patient states that he has been here too long and he wants to leave right [facility] now. Notified Dr. Small who will discharge the patient. Vital Signs: 17:13 BP 90 / 70; Pulse 101; Resp 18; Temp 98.7(O); Pulse Ox 95% on R/A; Weight 81.65 kg; Height 5 ft. 8 in. (172.72 cm); Pain 5/10; 18:34 BP 131 / 92; Pulse 109; Resp 20; Pulse Ox 96% on R/A; aj1 19:30 BP 127 / 82; Pulse 92; Resp 18; Pulse Ox 97% on R/A; aj1 17:13 Body Mass Index 27.37 (81.65 kg, 172.72 cm) ED Course: 17:10 Patient arrived in ED. mr 17:13 Triage completed. hj 17:13 Arm band placed on right wrist. 17:15 Nicole Bower, RN is Primary Nurse. aj1 17:22 Patient has correct armband on for positive identification. aj1 17:22 No provider procedures requiring assistance completed. aj1 17:50 Grady Small MD is Attending Physician. ps1 18:00 Inserted saline lock: 18 gauge in right antecubital area, using aseptic technique. jp3 Blood collected. 18:00 Initial lab(s) drawn, by me, sent to lab. jp3 18:04 Basic Metabolic Panel Sent. jp3 18:04 CBC with Diff Sent. jp3 18:04 LFT's Sent. jp3 18:04 Magnesium Sent. jp3 18:04 NT PRO-BNP Sent. jp3 18:04 PT-INR Sent. jp3 18:04 Troponin (emerg Dept Use Only) Sent. jp3 18:05 CBC with Automated Diff Sent. jp3 18:05 Basic Metabolic Panel Sent. jp3 18:39 XRAY Chest (1 view) In Process Unspecified. EDMS 20:15 IV discontinued, intact, bleeding controlled, No redness/swelling at site. Pressure aj1 dressing applied. Administered Medications: No medications were administered Outcome: 20:22 Discharge ordered by . ps1 20:40 Discharged to home aj1 20:40 Condition: good 20:40 Discharge instructions given to no one, patient left prior to signing or receiving discharge instructions 20:41 Patient left the ED. aj1 Signatures: Dispatcher [employer] EDMS Nicole Bower RN RN aj1 Beverly Baird Henry, RN RN hj Grady Small MD MD ps1 Israel Persaud jp3 Corrections: (The following items were deleted from the chart) 17:15 17:13 Pulse 97bpm; Resp 18bpm; Pulse Ox 95% RA; Temp 98.7F Oral; 81.65 kg; Height 5 ft. hj 8 in.; BMI: 27.3; Pain 5/10; hj 17:15 17:13 BP 90 / 70; Pulse 97bpm; Resp 18bpm; Pulse Ox 95% RA; Temp 98.7F Oral; 81.65 kg; hj Height 5 ft. 8 in.; BMI: 27.3; Pain 5/10; hj
--- NOTE | 2019-03-11 20:23 | EDPHYS ---
Physician Documentation [facility] Name: Amor Ramírez Jr Age: 48 yrs Sex: Male : 1970 Arrival Date: 03/11/2019 Time: 17:10 Bed 23 Private MD: ED Physician Grady Small HPI: 03/11 20:13 This 48 yrs old Male presents to ER via Ambulatory with complaints of ps1 lightheaded. 20:13 patient states that he was lightheaded this morning when he got up and started walking. ps1 He then worked on a car with family member, patient smells like gasoline. 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 States that he is now more responsible with medications and takes insulin from [employer]. His BS is usually less than 200 and has been for several years. States that his symptoms are not associated with chest pain. States that he is not symptomatic at this time. . Historical: - Allergies: 17:13 NKDA; hj - PMHx: 17:13 Diabetes - IDDM; hj - PSHx: 17:13 left eye; throat; hj - Immunization history:: Adult Immunizations. - Ebola Screening: : Patient denies travel to an Ebola-affected area in the 21 days before illness onset. ROS: 20:13 Constitutional: Negative for fever, chills, and weight loss, Eyes: Negative for injury, ps1 pain, redness, and discharge, Cardiovascular: Negative for chest pain, palpitations, and edema, Respiratory: Negative for shortness of breath, cough, wheezing, and pleuritic chest pain, Abdomen/GI: Negative for abdominal pain, nausea, vomiting, diarrhea, and constipation, MS/Extremity: Negative for injury and deformity, Skin: Negative for injury, rash, and discoloration. 20:13 Neuro: Positive for lightheaded. Exam: 20:13 Constitutional: This is a well developed, well nourished patient who is awake, alert, ps1 and in no acute distress. Head/Face: Normocephalic, atraumatic. 20:13 ENT: Nares patent. No nasal discharge, no septal abnormalities noted. Tympanic membranes are normal and external auditory canals are clear. Oropharynx with no redness, swelling, or masses, exudates, or evidence of obstruction, uvula midline. Mucous membranes moist. Chest/axilla: Normal chest wall appearance and motion. Nontender with no deformity. No lesions are appreciated. Cardiovascular: Regular rate and rhythm. No gallops, murmurs, or rubs. Normal PMI, no JVD. No pulse deficits. Respiratory: Lungs have equal breath sounds bilaterally, clear to auscultation and percussion. No rales, rhonchi or wheezes noted. No increased work of breathing, no retractions or nasal flaring. Abdomen/GI: Soft, non-tender, with normal bowel sounds. No distension or tympany. No guarding or rebound. No evidence of tenderness throughout. Skin: Warm, dry with normal turgor. Normal color with no rashes, no lesions, and no evidence of cellulitis. MS/ Extremity: Pulses equal, no cyanosis. Neurovascular intact. Full, normal range of motion. Neuro: Awake and alert, GCS 15, oriented to person, place, time, and situation. Cranial nerves II-XII grossly intact. Sensory grossly intact. 20:13 Eyes: patient is legally blind. Vital Signs: 17:13 BP 90 / 70; Pulse 101; Resp 18; Temp 98.7(O); Pulse Ox 95% on R/A; Weight 81.65 kg; hj Height 5 ft. 8 in. (172.72 cm); Pain 5/10; 18:34 BP 131 / 92; Pulse 109; Resp 20; Pulse Ox 96% on R/A; aj1 19:30 BP 127 / 82; Pulse 92; Resp 18; Pulse Ox 97% on R/A; aj1 17:13 Body Mass Index 27.37 (81.65 kg, 172.72 cm) MDM: 19:01 Patient medically screened. ps1 20:13 Data reviewed: vital signs, nurses notes, lab test result(s), EKG, radiologic studies, ps1 and as a result, I will discharge patient. Counseling: I had a detailed discussion with the patient and/or guardian regarding: the historical points, exam findings, and any diagnostic results supporting the discharge/admit diagnosis, lab results, radiology results, the need for outpatient follow up, to return to the emergency department if symptoms worsen or persist or if there are any questions or concerns that arise at home. 03/11 17:37 Order name: Basic Metabolic Panel hi 03/11 17:37 Order name: CBC with Diff 03/11 17:37 Order name: LFT's; Complete Time: 19:02 hi 03/11 17:37 Order name: Magnesium; Complete Time: 19:02 hi 03/11 17:37 Order name: NT PRO-BNP; Complete Time: 19:02 hi 03/11 17:37 Order name: PT-INR; Complete Time: 19:02 hi 03/11 17:37 Order name: Troponin (emerg Dept Use Only); Complete Time: 19:02 hi 03/11 17:37 Order name: XRAY Chest (1 view); Complete Time: 19:02 hi 03/11 17:37 Order name: EKG; Complete Time: 17:48 hi 03/11 17:38 Order name: Urine Microscopic Only; Complete Time: 20:12 hi 03/11 17:47 Order name: Basic Metabolic Panel; Complete Time: 19:02 [facility] 03/11 17:47 Order name: CBC with Automated Diff; Complete Time: 19:02 [facility] 03/11 19:07 Order name: Urine Dipstick--Ancillary (enter results); Complete Time: 19:23 [facility] 03/11 19:33 Order name: Urine Culture [facility] 03/11 17:37 Order name: Cardiac monitoring; Complete Time: 17:39 hi 03/11 17:37 Order name: EKG - Nurse/Tech; Complete Time: 17:39 hi 03/11 17:37 Order name: IV Saline Lock; Complete Time: 18:04 hi 03/11 17:37 Order name: Labs collected and sent; Complete Time: 18:04 hi 03/11 17:37 Order name: O2 Per Protocol; Complete Time: 17:39 hi 03/11 17:37 Order name: O2 Sat Monitoring; Complete Time: 17:39 hi 03/11 17:38 Order name: Urine Dipstick-Ancillary (obtain specimen); Complete Time: 20:02 hi Administered Medications: No medications were administered Disposition: 03/11/19 20:22 Discharged to Home. Impression: lightheadedness. - Condition is Stable. - Discharge Instructions: Near-Syncope. - Medication Reconciliation Form, Thank You Letter, Antibiotic Education, Prescription Opioid Use form. - Follow up: Private Physician; When: 48 Hours; Reason: Further diagnostic work-up, Recheck today's complaints, Continuance of care, Re-evaluation by your physician. Follow up: Emergency Department; When: As needed; Reason: Fever > 102 F, Trouble breathing, Worsening of condition. - Problem is new. - Symptoms have improved. Signatures: Dispatcher [employer] EDMS Nicole Bower RN RN aj1 Cornell Almazan RN RN hj Hunter Ross MD MD wa Singer, Phillip, MD MD ps1 Corrections: (The following items were deleted from the chart) 20:41 20:22 03/11/2019 20:22 Discharged to Home. Impression: lightheadedness. Condition is aj1 Stable. Forms are Medication Reconciliation Form, Thank You Letter, Antibiotic Education, Prescription Opioid Use. Follow up: Private Physician; When: 48 Hours; Reason: Further diagnostic work-up, Recheck today's complaints, Continuance of care, Re-evaluation by your physician. Follow up: Emergency Department; When: As needed; Reason: Fever > 102 F, Trouble breathing, Worsening of condition. Problem is new. Symptoms have improved. ps1
--- NOTE | 2019-03-12 10:58 | EKG ---
Test Date: 2019-03-11 Test Time: 17:20:41 Workers Compensation Attorney: FERMIN MEASUREMENT RESULTS: Intervals: Rate: 99 KS: 148 QRSD: 78 QT: 346 QTc: 444 [place]: P: 31 KS: 148 QRS: -6 T: 67 INTERPRETIVE STATEMENTS: Normal sinus rhythm Normal ECG Compared to ECG 01/03/2016 23:10:47 Sinus tachycardia no longer present T-wave abnormality no longer present Electronically Signed On 03-12-19 10:55:09 CDT by Rojelio Borrego
[2019-03-13 17:52] VITALS: BP 127/82; TEMP 98.7; O2SAT 97
== END 2019-03-11 20:41 | disposition home or self-care (01) ==
LOC: ER 17:07
DX: R42 Dizziness and giddiness (principal); E11.9 Type 2 diabetes mellitus without complications; H54.8 Legal blindness, as defined in USA
CPT/HCPCS: 36415; 71045; 80048; 80076; 81003; 81015; 83735; 83880; 84484; 85025; 85610; 87086; 87088; 93005; 99284

== ENCOUNTER 2019-05-14 09:28 | Emergency (ER) | payer SELFPAY ==
[2019-05-14] MEDS ORDERED: HYDROCODONE/CHLORPHEN 5 ML/OSYR ONE (09:51)
--- NOTE | 2019-05-14 11:03 | ER ---
Nurse's Notes [facility] [place], [place] Name: Amor Ramírez Jr Age: 48 yrs Sex: Male : 1970 Arrival Date: 05/14/2019 Time: 09:29 Bed 23 Private MD: Diagnosis: Acute upper respiratory infection, unspecified Presentation: 05/14 09:37 Presenting complaint: Right sided chest pain, productive cough, pain with cough, body hb aches, and malaise x 3 days. Denies fever/N/V/D. Transition of care: patient was not received from another setting of care. Onset of symptoms was May 12, 2019. Risk Assessment: Do you want to hurt yourself or someone else? Patient reports no desire to harm self or others. Initial Sepsis Screen: Does the patient meet any 2 criteria? No. Patient's initial sepsis screen is negative. Does the patient have a suspected source of infection? No. Patient's initial sepsis screen is negative. Care prior to arrival: None. 09:37 Method Of Arrival: Ambulatory hb 09:37 Acuity: YADIEL 3 hb Historical: - Allergies: 09:39 NKDA; hb - Home Meds: 09:39 Novolin N 100 unit/mL Sub-Q susp [Active]; Insulin: Novolin R Sub-Q [Active]; hb - PMHx: 09:39 Diabetes - IDDM; hb - PSHx: 09:39 left eye; throat; hb - Immunization history:: Adult Immunizations up to date. - Social history:: Smoking status: Patient/guardian denies using tobacco. - Ebola Screening: : No symptoms or risks identified at this time. Screenin:42 Abuse screen: Denies threats or abuse. Nutritional screening: No deficits noted. tw2 Tuberculosis screening: No symptoms or risk factors identified. Fall Risk None identified. Assessment: 09:54 General: Appears in no apparent distress. Behavior is calm, cooperative, appropriate tw2 for age. Pain: Denies pain. Neuro: Level of Consciousness is awake, alert, obeys commands, Oriented to person, place, time, situation. Cardiovascular: Heart tones S1 S2 Patient's skin is warm and dry. Respiratory: Reports cough that is Airway is patent Respiratory effort is even, unlabored, Respiratory pattern is regular, symmetrical, Breath sounds are clear bilaterally. Respiratory: Reports. GI: No signs and/or symptoms were reported involving the gastrointestinal system. : No signs and/or symptoms were reported regarding the genitourinary system. EENT: Reports nasal congestion nasal discharge. Derm: No signs and/or symptoms reported regarding the dermatologic system. Musculoskeletal: No signs and/or symptoms reported regarding the musculoskeletal system. Circulation, motion, and sensation intact. Range of motion: intact in all extremities. 10:27 Reassessment: Patient appears in no apparent distress at this time. Patient and/or tw2 family updated on plan of care and expected duration. Pain level reassessed. Patient is alert, oriented x 3, equal unlabored respirations, skin warm/dry/pink. pt reports coughing has decreased. Patient states symptoms have improved. 11:06 Reassessment: Patient appears in no apparent distress at this time. Patient and/or tw2 family updated on plan of care and expected duration. Pain level reassessed. Patient is alert, oriented x 3, equal unlabored respirations, skin warm/dry/pink. Vital Signs: 09:39 BP 150 / 99; Pulse 94; Resp 16; Temp 98(O); Pulse Ox 100% on R/A; Weight 81.65 kg; hb Height 5 ft. 9 in. (175.26 cm); Pain 6/10; 10:27 BP 158 / 100; Pulse 86; Resp 17; Pulse Ox 95% on R/A; tw2 11:06 BP 158 / 102; Pulse 88; Resp 17; Pulse Ox 96% on R/A; tw2 09:39 Body Mass Index 26.58 (81.65 kg, 175.26 cm) hb ED Course: 09:29 Patient arrived in ED. as 09:38 Triage completed. hb 09:39 Arm band placed on. hb 09:40 Naseem Engel NP is PHCP. pm1 09:40 Michael Castelan MD is Attending Physician. pm1 09:41 Ninoska Booth RN is Primary Nurse. tw2 09:42 Bed in low position. Call light in reach. cardiac monitor on. Pulse ox on. NIBP on. tw2 09:53 Strep Sent. tw2 09:54 Flu Sent. tw2 11:07 No provider procedures requiring assistance completed. Patient did not have IV access tw2 during this emergency room visit. Administered Medications: 09:52 Drug: Tussionex Pennkinetic ER 5 ml Route: PO; tw2 11: Follow up: Response: No adverse reaction; Marked relief of symptoms tw2 Outcome: 10:59 Discharge ordered by . pm1 11:07 Discharged to home ambulatory, with significant other. tw2 11: Condition: stable 11:07 Discharge instructions given to patient, significant other, Instructed on discharge instructions, follow up and referral plans. medication usage, Demonstrated understanding of instructions, follow-up care, medications, Prescriptions given X 2. 11:08 Patient left the ED. tw2 Signatures: Fara Way Patrick, NP FACILITIES FLIGHT CHECK PILOT pm1 Verna Bhat, RN RN hb Ninoska Booth RN RN tw2 Corrections: (The following items were deleted from the chart) 09:39 09:37 Acuity: YADIEL 4 hb hb 09:40 09:37 Presenting complaint: Productive cough, pain with cough, body aches, and malaise hb x 3 days. Denies fever/N/V/D hb
--- NOTE | 2019-05-14 11:04 | EDPHYS ---
Physician Documentation [facility] Name: Amor Ramírez Jr Age: 48 yrs Sex: Male : 1970 Arrival Date: 05/14/2019 Time: 09:29 Bed 23 Private MD: ED Physician Michael Castelan HPI: 05/14 09:47 This 48 yrs old Male presents to ER via Ambulatory with complaints of Chest pm1 Congestion. 09:47 The patient or guardian reports cough, with no sputum. Onset: The symptoms/episode pm1 began/occurred 3 day(s) ago. Severity of symptoms: in the emergency department the symptoms are actually worse. Modifying factors: The symptoms are alleviated by Chloraseptic throat spray. Associated signs and symptoms: Pertinent positives: chest pain, with cough, right side of chest, sore throat, Pertinent negatives: ear ache, fever, vomiting. The patient has experienced a previous episode, many years ago, and the symptoms today are exactly the same, to flu. The patient has not recently seen a physician. Historical: - Allergies: 09:39 NKDA; hb - Home Meds: 09:39 Novolin N 100 unit/mL Sub-Q susp [Active]; Insulin: Novolin R Sub-Q [Active]; hb - PMHx: 09:39 Diabetes - IDDM; hb - PSHx: 09:39 left eye; throat; hb - Immunization history:: Adult Immunizations up to date. - Social history:: Smoking status: Patient/guardian denies using tobacco. - Ebola Screening: : No symptoms or risks identified at this time. ROS: 09:47 Eyes: Negative for injury, pain, redness, and discharge. pm1 09:47 Neck: Negative for injury, pain, and swelling, Cardiovascular: Negative for chest pain, palpitations, and edema. 09:47 Abdomen/GI: Negative for abdominal pain, nausea, vomiting, diarrhea, and constipation, Back: Negative for injury and pain, : Negative for injury, bleeding, discharge, and swelling, MS/Extremity: Negative for injury and deformity, Skin: Negative for injury, rash, and discoloration, Neuro: Negative for headache, weakness, numbness, tingling, and seizure. 09:47 Constitutional: Positive for body aches, malaise, Negative for poor PO intake. 09:47 ENT: Positive for sore throat, Negative for ear pain, sinus congestion, sinus pain, difficulty swallowing, difficulty handling secretions. 09:47 Respiratory: Positive for cough, Negative for shortness of breath, sputum production, wheezing. Exam: 09:47 Constitutional: This is a well developed, well nourished patient who is awake, alert, pm1 and in no acute distress. Head/Face: Normocephalic, atraumatic. Eyes: Pupils equal round and reactive to light, extra-ocular motions intact. Lids and lashes normal. Conjunctiva and sclera are non-icteric and not injected. Cornea within normal limits. Periorbital areas with no swelling, redness, or edema. ENT: Nares patent. No nasal discharge, no septal abnormalities noted. Tympanic membranes are normal and external auditory canals are clear. Oropharynx with no redness, swelling, or masses, exudates, or evidence of obstruction, uvula midline. Mucous membranes moist. Neck: Trachea midline, no thyromegaly or masses palpated, and no cervical lymphadenopathy. Supple, full range of motion without nuchal rigidity, or vertebral point tenderness. No Meningismus. Chest/axilla: Normal chest wall appearance and motion. Nontender with no deformity. No lesions are appreciated. Cardiovascular: Regular rate and rhythm with a normal S1 and S2. No gallops, murmurs, or rubs. Normal PMI, no JVD. No pulse deficits. Respiratory: Lungs have equal breath sounds bilaterally, clear to auscultation and percussion. No rales, rhonchi or wheezes noted. No increased work of breathing, no retractions or nasal flaring. Abdomen/GI: Soft, non-tender, with normal bowel sounds. No distension or tympany. No guarding or rebound. No evidence of tenderness throughout. Back: No spinal tenderness. No costovertebral tenderness. Full range of motion. Skin: Warm, dry with normal turgor. Normal color with no rashes, no lesions, and no evidence of cellulitis. MS/ Extremity: Pulses equal, no cyanosis. Neurovascular intact. Full, normal range of motion. 09:47 Neuro: Orientation: is normal, Mentation: is normal, Motor: is normal, moves all fours, Sensation: is normal, no obvious gross deficits, Gait: is steady, at a normal pace, without difficulty. Vital Signs: 09:39 BP 150 / 99; Pulse 94; Resp 16; Temp 98(O); Pulse Ox 100% on R/A; Weight 81.65 kg; hb Height 5 ft. 9 in. (175.26 cm); Pain 6/10; 10:27 BP 158 / 100; Pulse 86; Resp 17; Pulse Ox 95% on R/A; tw2 11:06 BP 158 / 102; Pulse 88; Resp 17; Pulse Ox 96% on R/A; tw2 09:39 Body Mass Index 26.58 (81.65 kg, 175.26 cm) hb MDM: 09:40 Patient medically screened. pm1 09:47 Data reviewed: vital signs. Data interpreted: Pulse oximetry: on room air is 100 %. pm1 Interpretation: normal. 10:59 Counseling: I had a detailed discussion with the patient and/or guardian regarding: the pm1 historical points, exam findings, and any diagnostic results supporting the discharge/admit diagnosis, lab results, the need for outpatient follow up, to return to the emergency department if symptoms worsen or persist or if there are any questions or concerns that arise at home. 05/14 09:46 Order name: Flu; Complete Time: 10:16 pm1 05/14 09:46 Order name: Strep; Complete Time: 10:14 pm1 05/14 10:25 Order name: Throat Culture EDMS Administered Medications: 09:52 Drug: Tussionex Pennkinetic ER 5 ml Route: PO; tw2 11:07 Follow up: Response: No adverse reaction; Marked relief of symptoms tw2 Disposition: 15:41 Co-signature as Attending Physician, Michael Castelan MD I agree with the assessment and micky plan of care. Disposition: 05/14/19 10:59 Discharged to Home. Impression: Acute upper respiratory infection, unspecified. - Condition is Stable. - Discharge Instructions: Upper Respiratory Infection, Adult, Viral Respiratory Infection. - Prescriptions for Tamiflu 75 mg Oral Capsule - take 1 tablet by ORAL route every 12 hours for 5 days; 10 tablet. Guaifenesin AC 10- 100 mg/5 mL Oral Liquid - take 10 milliliter by ORAL route every 4 hours As needed; 240 milliliter. - Medication Reconciliation Form, Thank You Letter, Antibiotic Education, Prescription Opioid Use, Work release form form. - Follow up: Emergency Department; When: As needed; Reason: Worsening of condition. Follow up: Private Physician; When: 2 - 3 days; Reason: Recheck today's complaints, Continuance of care, Re-evaluation by your physician. - Problem is new. - Symptoms have improved. Signatures: Dispatcher [employer] Michael Ocampo MD MD cha Marinas, Patrick, BEATER OUT BEATER OUT pm1 Verna Bhat, JOAN RN Ninoska Booth RN RN tw2 Corrections: (The following items were deleted from the chart) 11:08 10:59 05/14/2019 10:59 Discharged to Home. Impression: Acute upper respiratory tw2 infection, unspecified. Condition is Stable. Forms are Work release form, Medication Reconciliation Form, Thank You Letter, Antibiotic Education, Prescription Opioid Use. Follow up: Emergency Department; When: As needed; Reason: Worsening of condition. Follow up: Private Physician; When: 2 - 3 days; Reason: Recheck today's complaints, Continuance of care, Re-evaluation by your physician. Problem is new. Symptoms have improved. pm1
[2019-05-14 11:13] VITALS: TEMP 98
[2019-05-14 11:16] VITALS: BP 158/102; O2SAT 96
== END 2019-05-14 11:08 | disposition home or self-care (01) ==
LOC: ER 09:28
DX: J06.9 Acute upper respiratory infection, unspecified (principal)
CPT/HCPCS: 87070; 87081; 87804; 99284

== ENCOUNTER 2019-07-11 08:05 | Emergency (ER) | payer SELFPAY ==
[2019-07-11] MEDS ORDERED: HYDROCODONE/APAP 7.5/325 MG TAB ONE (08:48)
--- NOTE | 2019-07-11 09:40 | ER ---
Nurse's Notes [facility] Name: Amor Ramírez Jr Age: 49 yrs Sex: Male : 1970 Arrival Date: 07/11/2019 Time: 08:07 Bed 18 Private MD: Diagnosis: Chest pain, unspecified Presentation: 07/11 08:13 Presenting complaint: Patient states: Was using a 4 ft step ladder, became unbalanced sg and fell down from the step onto his right side hitting the counter top with his right side of body, pt now reports pain in the right side of chest/rib area, denies LOC no other complaints at this time. Care prior to arrival: None. Mechanism of Injury: Fall 4 ft step ladder. Trauma event details: Injury occurred in the [facility], Injury occurred: at home. Injury occurred: July 11, 2019. 08:13 Acuity: YADIEL 4 sg 08:13 Method Of Arrival: Ambulatory sg Trauma Activation: Not Applicable Physician: ED Physician; Name: ; Notified At: ; Arrived At: Physician: General Surgeon; Name: ; Notified At: ; Arrived At: Physician: Radiology; Name: ; Notified At: ; Arrived At: Physician: Respiratory; Name: ; Notified At: ; Arrived At: Physician: Lab; Name: ; Notified At: ; Arrived At: Historical: - Allergies: 08:15 NKDA; sg - PMHx: 08:15 Diabetes - IDDM; sg - PSHx: 08:15 left eye; throat; sg Assessment: 08:20 General: Appears in no apparent distress. uncomfortable, well groomed, well developed, sg well nourished, Behavior is calm, cooperative, appropriate for age. Pain: Complains of pain in right lateral anterior chest Quality of pain is described as tender. Neuro: Level of Consciousness is awake, alert, obeys commands, Oriented to person, place, time, Hand Assembler For Puller Over are equal bilaterally Moves all extremities. Gait is steady, Speech is normal, Facial symmetry appears normal. Cardiovascular: Heart tones S1 S2 present. Respiratory: Airway is patent Respiratory effort is even, unlabored, Respiratory pattern is regular, symmetrical. GI: No signs and/or symptoms were reported involving the gastrointestinal system. : No signs and/or symptoms were reported regarding the genitourinary system. EENT: No signs and/or symptoms were reported regarding the EENT system. EENT:. Derm: Skin is pink, warm \T\ dry. Musculoskeletal: Circulation, motion, and sensation intact. Range of motion: intact in all extremities. Vital Signs: 08:14 BP 132 / 77; Pulse 78; Resp 17; Pulse Ox 99% on R/A; Pain 6/10; sg [place] Coma Score: 08:14 Eye Response: spontaneous(4). Verbal Response: oriented(5). Motor Response: obeys sg commands(6). Total: 15. Trauma Score (Adult): 08:14 Eye Response: spontaneous(1); Verbal Response: oriented(1); Motor Response: obeys sg commands(2); Systolic BP: > 89 mm Hg(4); Respiratory Rate: 10 to 29 per min(4); Kayleigh Score: 15; Trauma Score: 12 ED Course: 08:07 Patient arrived in ED. mr 08:14 Triage completed. sg 08:15 Arm band placed on. sg 08:16 Toby Desai PA is PHCP. jr8 08:16 Dipesh Patterson MD is Attending Physician. jr8 08:41 Ribs Right XRAY In Process Unspecified. EDMS 08:53 Chest Single View XRAY In Process Unspecified. EDMS 08:57 Casey Stewart, RN is Primary Nurse. sg Administered Medications: 08:48 Drug: [place] (7.5 mg-325 mg) 1 tabs Route: PO; sg Intake: 08:14 PO: 0ml; Total: 0ml. sg Output: 08:14 Urine: 0ml; Total: 0ml. sg Outcome: 09:39 Discharge ordered by . jr8 10:09 Patient left the ED. sg Signatures: Dispatcher [employer] EDMS Casey Stewart, RN RN sg Beverly Baird mr Toby Desai PA PA jr8
--- NOTE | 2019-07-11 09:40 | RAD REPORT ---
EXAM DESCRIPTION: Tania Single View07/11/2019 8:53 am CLINICAL HISTORY: Chest pain COMPARISON: March 2019 FINDINGS: The lungs appear clear of acute infiltrate. The heart is normal size IMPRESSION: No acute abnormalities displayed
--- NOTE | 2019-07-11 09:41 | EDPHYS ---
Physician Documentation [facility] Name: Amor Ramírez Jr Age: 49 yrs Sex: Male : 1970 Arrival Date: 07/11/2019 Time: 08:07 Bed 18 Private MD: ED Physician Dipesh Patterson HPI: 07/11 08:31 This 49 yrs old Male presents to ER via Ambulatory with complaints of Fall jr8 Injury. 08:31 Details of fall: The patient fell from a height, from a ladder, approximately 4 feet. jr8 Onset: The symptoms/episode began/occurred 2 day(s) ago. Associated injuries: The patient sustained injury to the chest, specifically the right breast. Severity of symptoms: At their worst the symptoms were mild. Pt reports falling from a short ladder 2 days ago and having persistent sharp pain to right lateral inferior chest wall. Historical: - Allergies: 08:15 NKDA; sg - PMHx: 08:15 Diabetes - IDDM; sg - PSHx: 08:15 left eye; throat; sg ROS: 08:32 Constitutional: Negative for fever, chills, and weight loss, Eyes: Negative for injury, jr8 pain, redness, and discharge, ENT: Negative for injury, pain, and discharge, Neck: Negative for injury, pain, and swelling, Cardiovascular: Negative for chest pain, palpitations, and edema, Respiratory: Negative for shortness of breath, cough, wheezing, and pleuritic chest pain, Abdomen/GI: Negative for abdominal pain, nausea, vomiting, diarrhea, and constipation, Back: Negative for injury and pain, MS/Extremity: Negative for injury and deformity, Neuro: Negative for headache, weakness, numbness, tingling, and seizure. 08:32 Cardiovascular: Positive for chest pain, with cough, with movement, of the right breast. Exam: 08:32 Constitutional: This is a well developed, well nourished patient who is awake, alert, jr8 and in no acute distress. Head/Face: Normocephalic, atraumatic. Eyes: Pupils equal round and reactive to light, extra-ocular motions intact. Lids and lashes normal. Conjunctiva and sclera are non-icteric and not injected. Cornea within normal limits. Periorbital areas with no swelling, redness, or edema. ENT: Nares patent. No nasal discharge, no septal abnormalities noted. Tympanic membranes are normal and external auditory canals are clear. Oropharynx with no redness, swelling, or masses, exudates, or evidence of obstruction, uvula midline. Mucous membranes moist. Neck: Trachea midline, no thyromegaly or masses palpated, and no cervical lymphadenopathy. Supple, full range of motion without nuchal rigidity, or vertebral point tenderness. No Meningismus. Chest/axilla: Normal chest wall appearance and motion. Nontender with no deformity. No lesions are appreciated. Cardiovascular: Regular rate and rhythm with a normal S1 and S2. No gallops, murmurs, or rubs. Normal PMI, no JVD. No pulse deficits. Respiratory: Lungs have equal breath sounds bilaterally, clear to auscultation and percussion. No rales, rhonchi or wheezes noted. No increased work of breathing, no retractions or nasal flaring. Abdomen/GI: Soft, non-tender, with normal bowel sounds. No distension or tympany. No guarding or rebound. No evidence of tenderness throughout. Back: No spinal tenderness. No costovertebral tenderness. Full range of motion. Neuro: Awake and alert, GCS 15, oriented to person, place, time, and situation. Cranial nerves II-XII grossly intact. Motor strength 5/5 in all extremities. Sensory grossly intact. Cerebellar exam normal. Normal gait. Vital Signs: 08:14 BP 132 / 77; Pulse 78; Resp 17; Pulse Ox 99% on R/A; Pain 6/10; sg Cowdrey Coma Score: 08:14 Eye Response: spontaneous(4). Verbal Response: oriented(5). Motor Response: obeys sg commands(6). Total: 15. Trauma Score (Adult): 08:14 Eye Response: spontaneous(1); Verbal Response: oriented(1); Motor Response: obeys sg commands(2); Systolic BP: > 89 mm Hg(4); Respiratory Rate: 10 to 29 per min(4); Kayleigh Score: 15; Trauma Score: 12 MDM: 08:16 Patient medically screened. [facility] 09:37 Data reviewed: vital signs, nurses notes, radiologic studies, and as a result, I will [facility] discharge patient. Data interpreted: Pulse oximetry: on room air is 99 %. Interpretation: normal. Counseling: I had a detailed discussion with the patient and/or guardian regarding: the historical points, exam findings, and any diagnostic results supporting the discharge/admit diagnosis, radiology results. 07/11 08:27 Order name: Ribs Right XRAY jr8 07/11 08:27 Order name: Chest Single View XRAY jr8 Administered Medications: 08:48 Drug: Dayton (7.5 mg-325 mg) 1 tabs Route: PO; sg Disposition: 07/12 09:04 Co-signature as Attending Physician, Dipesh Patterson MD I agree with the assessment and kdr plan of care. Disposition: 07/11/19 09:39 Discharged to Home. Impression: Chest pain, unspecified. - Condition is Stable. - Discharge Instructions: Chest Wall Pain, Rib Fracture. - Prescriptions for Zanaflex 4 mg Oral Tablet - take 1 tablet by ORAL route every 8 hours As needed; 20 tablet. Diclofenac Sodium 75 mg Oral Tablet, Delayed Release (E.C.) - take 1 tablet by ORAL route 2 times per day; 14 tablet. - Work release form, Medication Reconciliation Form, Thank You Letter form. - Follow up: Private Physician; When: As needed; Reason: Recheck today's complaints, Re-evaluation by your physician. - Problem is new. - Symptoms have improved. Signatures: Dispatcher [employer] EDCasey Monroe RN RN sg Rittger, Kevin, MD MD [facility] Toby Desai PA PA jr8 Corrections: (The following items were deleted from the chart) 07/11 10:09 09:39 07/11/2019 09:39 Discharged to Home. Impression: Chest pain, unspecified. sg Condition is Stable. Forms are Medication Reconciliation Form, Thank You Letter, Antibiotic Education, Prescription Opioid Use. Follow up: Private Physician; When: As needed; Reason: Recheck today's complaints, Re-evaluation by your physician. Problem is new. Symptoms have improved. jr8
[2019-07-11 10:13] VITALS: BP 132/77; O2SAT 99
--- NOTE | 2019-07-11 10:35 | RAD REPORT ---
EXAM DESCRIPTION: Ribs Right - 07/11/2019 8:44 am CLINICAL HISTORY: Right-sided rib pain following chest trauma COMPARISON: None. FINDINGS: Nondisplaced fractures are present involving the right eighth and ninth ribs near the cost ochondral junction. No other rib fractures confirmed. No aggressive rib lesion. No underlying pneumothorax, effusion, infiltrate or pulmonary contusion. IMPRESSION: Nondisplaced right eighth and ninth rib fractures near the costochondral junction.
== END 2019-07-11 10:09 | disposition home or self-care (01) ==
LOC: ER 08:05
DX: R07.9 Chest pain, unspecified (principal); W11.XXXA Fall on and from ladder, initial encounter; Y93.9 Activity, unspecified; Y92.9 Unspecified place or not applicable
CPT/HCPCS: 71045; 99283

== ENCOUNTER 2020-06-13 15:10 | Emergency (ER) | payer SELFPAY ==
--- NOTE | 2020-06-13 15:32 | RAD REPORT ---
EXAM DESCRIPTION: CT - Ct Stroke Brain Wo Cont - 06/13/2020 3:22 pm CLINICAL HISTORY: Vision loss COMPARISON: 2018 TECHNIQUE: Computed axial tomography of the head was obtained. All CT scans are performed using dose optimization technique as appropriate and may include automated exposure control or mA/KV adjustment according to patient size. FINDINGS: An intracranial bleed is not seen . The ventricles are normal in caliber. No extra-axial fluid collection is noted. 10 millimeter low-density area within the right thalamus appears chronic. Mild low-density within per iventricular, deep and subcortical white matter likely ischemic changes secondary to small vessel dis ease Fluid within the sinuses/ mastoids is not seen. IMPRESSION: No acute intracranial abnormality is seen. If patient's symptoms persist MRI of the bra in would be recommended. Dr Patterson of the emergency room was notified at 3:25 p.m. on June 13, 2020
[2020-06-13 15:40] LABS: Absolute Lymphocytes (CBC) 1.5 K/uL (0.7-4.9); Basophils % 0.9 % (0-1.3); Hematocrit 46.5 % (39.6-49.0); Lymphocytes % 15.8 % (15.3-44.8); RBC Red Blood Cell Count 5.93 M/uL (4.33-5.43)
[2020-06-13 15:44] LABS: Protime INR 0.98
[2020-06-13 15:59] LABS: ALT/SGPT 54 U/L (12-78); AST/SGOT 33 U/L (15-37); Albumin 2.8 g/dL (3.4-5.0); Alkaline Phosphatase 89 U/L (45-117); BUN Blood Urea Nitrogen 22 mg/dL (7-18); Bicarbonate 27 mmol/L (21-32); Bilirubin Direct < 0.1 mg/dL (0-0.2); Bilirubin Total 0.2 mg/dL (0.2-1.0); Glucose Level 158 mg/dL (74-106); Potassium 3.7 mmol/L (3.5-5.1); Protein, Total 8.1 g/dL (6.4-8.2); Sodium Level 141 mmol/L (136-145)
--- NOTE | 2020-06-13 16:17 | RAD REPORT ---
EXAM DESCRIPTION: Tania Single View06/13/2020 3:53 pm CLINICAL HISTORY: Vision loss COMPARISON: 2018 FINDINGS: The lungs appear clear of acute infiltrate. The heart is normal size IMPRESSION: No acute abnormalities displayed
[2020-06-13] MEDS ORDERED: LORazepam 2 MG/ML VIAL ONE (16:23)
[2020-06-13 16:54] LABS: Barbiturates NEGATIVE (NEGATIVE); Benzodiazepines NEGATIVE (NEGATIVE); Cocaine POSITIVE (NEGATIVE); METHAMPHETAM NEGATIVE (NEGATIVE); Methadone NEGATIVE (NEGATIVE); Opiates NEGATIVE (NEGATIVE); Phencyclidine NEGATIVE (NEGATIVE); THC Cannibis NEGATIVE (NEGATIVE)
--- NOTE | 2020-06-13 17:17 | ER ---
Nurse's Notes [facility] Name: Amro Ramírez Jr Age: 50 yrs Sex: Male : 1970 Arrival Date: 06/13/2020 Time: 15:10 Bed 4 Private MD: Diagnosis: Unspecified visual disturbance-right eye blurred vision Presentation: 06/13 15:13 Chief complaint: Pt's states "He can't see anything now". Pt c/o loss of vision to aa5 right eye, pt reports having right eye sx approximately 3 weeks ago for eye hemorrhage. Pt appears anxious, pt hyperventilating. 15:13 Risk Assessment: Do you want to hurt yourself or someone else? Patient reports aa5 desire/thoughts of hurting themselves or someone else. Provider notified. Other: Pt states "I became suicidal because I can't see". Onset of symptoms was June 13, 2020. 15:13 Acuity: YADIEL 2 aa5 15:13 Method Of Arrival: Wheelchair aa5 15:13 An acute neurological deficit is present. The charge nurse has been notified. The jl7 patient has been moved to a treatment area. Pre-hospital glucose is not applicable to this patient. 15:20 Coronavirus screen: Client denies travel out of the [place] in the last 14 days. At this jl7 time, the client does not indicate any symptoms associated with coronavirus-19. Ebola Screen: No symptoms or risks identified at this time. Initial Sepsis Screen: Does the patient meet any 2 criteria? No. Patient's initial sepsis screen is negative. Does the patient have a suspected source of infection? No. Patient's initial sepsis screen is negative. Care prior to arrival: None. Triage Assessment: 15:15 The onset of the patients symptoms was June 13, 2020 at 10:00. General: Appears in jl7 no apparent distress. uncomfortable, Behavior is cooperative, anxious. Pain: Denies pain. Neuro: Level of Consciousness is awake, alert, obeys commands, Oriented to person, place, time, situation, Reports blurred vision. Cardiovascular: Patient's skin is warm and dry. Respiratory: Airway is patent Respiratory effort is even, unlabored, Respiratory pattern is regular, symmetrical. Derm: Skin is pink, warm \\T\\ dry. Musculoskeletal: No signs and/or symptoms reported regarding the musculoskeletal system. Stroke Activation: Symtpom onset >3 hours and < 6 hours Physician: Stroke Attending; Name: ; Notified At: ; Arrived At: Physician: Chief Stroke Resident; Name: ; Notified At: ; Arrived At: Physician: Stroke Resident; Name: ; Notified At: ; Arrived At: Physician: ED Attending; Name: Yesenia; Notified At: 15:15; Arrived At: 15:15 Physician: ED Resident; Name: ; Notified At: ; Arrived At: Historical: - Allergies: 15:59 NKDA; jl7 - Home Meds: 15:59 Novolin N 100 unit/mL Sub-Q susp [Active]; jl7 - PMHx: 15:59 Diabetes - IDDM; Hypertension; jl7 - PSHx: 15:59 left eye; throat; jl7 - Immunization history:: Adult Immunizations unknown. - Social history:: Smoking status: Patient denies any tobacco usage or history of. Screenin:00 Abuse screen: Denies threats or abuse. Denies injuries from another. Nutritional jl7 screening: No deficits noted. Tuberculosis screening: No symptoms or risk factors identified. Fall Risk IV access (20 points). Total Tsang Fall Scale indicates No Risk (0-24 pts). Assessment: 15:13 Reassessment: Pt taken to CT via wheelchair, pt anxious and uncooperative. Accompanied aa5 by me. . 15:25 Reassessment: Pt back from CT via wheelchair. Placed in bed, bed in low position, aa5 locked, and side rails x 2 . 15:35 VAN Scoring: Arm Drift: Patients demonstrates NO arm weakness. Patient is VAN Negative. jl7 The patient has not been NPO before screening. The patient is currently on the following diet: Regular The patient is alert, and able to follow commands. The patient does not exhibit slurred or garbled speech. The patient is not exhibiting difficulty speaking. The patient does not exhibit difficulty understanding words. The patient is able to swallow own secretions with no drooling or need for suction. Patient tolerated one teaspoon of water. No drooling, immediate coughing, gurgling, or clearing of the throat was noted. The patient tolerated 90mL of water. No drooling, immediate coughing, gurgling, or clearing of the throat was noted. The patient passed the bedside swallow screening. Oral medications may be given as ordered. Contact Physician for further diet orders. Provider notified of bedside swallow screening results: Naseem Engel REGISTRAR ASSISTANT. T-PA (Activase) Screening: Contraindications: Blood pressure is more than 185/110: Yes. 16:25 Reassessment: Pt states "I did two lines of coke on Monday." ERP notified. jl7 17:15 Reassessment: Patient appears in no apparent distress at this time. Patient and/or jl7 family updated on plan of care and expected duration. Pain level reassessed. Patient is alert, oriented x 3, equal unlabored respirations, skin warm/dry/pink. Patient denies pain at this time. Patient states feeling better. Patient states symptoms have improved. Vital Signs: 15:22 BP 218 / 134; Pulse 93; Resp 25; Temp 98.1; Pulse Ox 98% ; jl7 15:59 BP 226 / 136; Pulse 90; Resp 19; Pulse Ox 99% ; Pain 0/10; jl7 16:25 BP 211 / 131; Pulse 90; Resp 21; Pulse Ox 99% ; jl7 17:00 BP 163 / 112; Pulse 82; Resp 17; Pulse Ox 96% ; jl7 17:40 BP 153 / 113; Pulse 84; Resp 17; Pulse Ox 96% ; jl7 NIH Stroke Scale Scores: 15:22 NIHSS Score: 2 jl7 ED Course: 15:10 Patient arrived in ED. ag5 15:13 Arm band placed on. aa5 15:18 Naseem Engel NP is PHCP. pm1 15:18 Dipesh Patterson MD is Attending Physician. pm1 15:20 Patient has correct armband on for positive identification. Placed in gown. Bed in low jl7 position. Call light in reach. Side rails up X2. Adult w/ patient. court recording monitor on. Pulse ox on. NIBP on. 15:20 Initial lab(s) drawn, by me, sent to lab. EKG done, by ED staff, reviewed by Naseem Engel NP. Inserted saline lock: 20 gauge in right forearm, using aseptic technique. Blood collected. 15:22 Ct Stroke Brain Wo Cont In Process Unspecified. EDMS 15:32 Triage completed. aa5 15:39 Honey Girard, RN is Primary Nurse. jl7 15:53 Stroke CXR 1 View In Process Unspecified. EDMS 17:40 No provider procedures requiring assistance completed. jl7 17:45 IV discontinued, intact, bleeding controlled, No redness/swelling at site. Pressure jl7 dressing applied. Administered Medications: 17:15 Drug: Ativan 1 mg Route: IVP; Site: right antecubital; jl7 17:30 Follow up: Response: No adverse reaction; Anxiety decreased jl7 Point of Care Testing: Blood Glucose: 15:30 Blood Glucose: 150 mg/dL; jl7 Ranges: Outcome: 17:16 Discharge ordered by MD. pm1 17:45 Discharged to home via wheelchair, with family. jl7 17:45 Condition: stable 17:45 Discharge instructions given to patient, family, Instructed on discharge instructions, follow up and referral plans. medication usage, Demonstrated understanding of instructions, follow-up care, medications, Prescriptions given X 1. 17:45 Patient left the ED. jl7 NIH Stroke Scale - NIH Stroke Score Date: 06/13/2020 Time: 15:22 Total Score = 2 1a. Level of Consciousness (LOC) - 0(Alert) 1b. Level of Consciousness (LOC) (Year \\T\\ Age) - 0(Both) 1c. LOC Commands (Open \\T\\ Closes Eyes/Spanish Language Lecturer) - 0(Both) 2. Best Gaze (Lateral Gaze Paresis) - 0(Normal) 3. Visual Field Loss - 2(Complete hemianopia) 4. Facial Palsy - 0(Normal) 5a. Left Arm: Motor (10-second hold) - 0(No drift) 5b. Right Arm: Motor (10-second hold) - 0(No drift) 6a. Left Leg: Motor (5-second hold - always test supine) - 0(No drift) 6b. Right Leg: Motor (5-second hold - always test supine) - 0(No drift) 7. Limb Ataxia (finger/nose \\T\\ heel/mays - test with eyes open) - 0(Absent) 8. Sensory Loss (pinprick arms/legs/face) - 0(Normal) 9. Best Language: Aphasia (description/naming/reading) - 0(No aphasia) 10. Dysarthria (speech clarity - read or repeat words) - 0(Normal) 11. Extinction and Inattention (visual/tactile/auditory/spatial/personal) - 0(No abnormality) Initials: jadyn Signatures: Dispatcher [employer] EDMS Nupur Fernandes, RN RN aa5 Naseem Engel, REGISTRAR ASSISTANT REGISTRAR ASSISTANT pm1 Honey Girard RN RN jl7 Anny Esquivel ag5 Corrections: (The following items were deleted from the chart) 17:48 17:48 Patient left the ED. jadyn salamanca
--- NOTE | 2020-06-13 17:17 | EDPHYS ---
Physician Documentation [facility] Name: Amor Ramírez Jr Age: 50 yrs Sex: Male : 1970 Arrival Date: 06/13/2020 Time: 15:10 Bed 4 Private MD: ED Physician Dipesh Patterson HPI: 06/13 15:39 This 50 yrs old Male presents to ER via Wheelchair with complaints of Loss Of pm1 Vision, Dizziness, Anxiety. 15:39 The patient is experiencing blurred vision, to the right eye, caused by an unknown pm1 mechanism. Onset: The symptoms/episode began/occurred 3 day(s) ago. Patient with decreased vision due to hemorrhage of right eye about 3.5 weeks ago. Had procedure with Dr. Patel in [place] and his vision returned to baseline. 2-3 days ago he reported decreased field of vision that was transient. This AM around 10 he started to see some floaters and then his vision started to get blurry. He is able to see light and shadows of people moving. 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 Historical: - Allergies: 15:59 NKDA; jl7 - Home Meds: 15:59 Novolin N 100 unit/mL Sub-Q susp [Active]; jl7 - PMHx: 15:59 Diabetes - IDDM; Hypertension; jl7 - PSHx: 15:59 left eye; throat; jl7 - Immunization history:: Adult Immunizations unknown. - Social history:: Smoking status: Patient denies any tobacco usage or history of. ROS: 16:03 Constitutional: Negative for fever, chills, and weight loss. pm1 16:03 ENT: Negative for injury, pain, and discharge, Neck: Negative for injury, pain, and swelling, Cardiovascular: Negative for chest pain, palpitations, and edema, Respiratory: Negative for shortness of breath, cough, wheezing, and pleuritic chest pain, Abdomen/GI: Negative for abdominal pain, nausea, vomiting, diarrhea, and constipation, Back: Negative for injury and pain, MS/Extremity: Negative for injury and deformity, Skin: Negative for injury, rash, and discoloration, Neuro: Negative for headache, weakness, numbness, tingling, and seizure. 16:03 Eyes: Positive for blurry vision, of the right eye, Negative for discharge, pain. Exam: 16:03 Constitutional: This is a well developed, well nourished patient who is awake, alert, pm1 and in no acute distress. Head/Face: Normocephalic, atraumatic. 16:03 Back: No spinal tenderness. No costovertebral tenderness. Full range of motion. Skin: Warm, dry with normal turgor. Normal color with no rashes, no lesions, and no evidence of cellulitis. MS/ Extremity: Pulses equal, no cyanosis. Neurovascular intact. Full, normal range of motion. 16:03 Eyes: Periorbital structures: appear normal, Pupils: dilated, bilaterally, Extraocular movements: intact throughout, Conjunctiva: normal, Corneas: are normal, Anterior chamber: normal, no hyphema, Lids and lashes: appear normal. 16:03 Cardiovascular: Exam negative for acute changes, Rate: normal, Rhythm: regular, Pulses: no pulse deficits are appreciated, Edema: is not appreciated. 16:03 Respiratory: Exam negative for acute changes, respiratory distress, shortness of breath. 16:03 Neuro: Exam negative for acute changes, Orientation: is normal, Mentation: is normal, Motor: is normal, moves all fours. 16:03 Psych: Behavior/mood is anxious, Affect is animated, Oriented to person, place, time, Judgement / Insight is normal. Vital Signs: 15:22 BP 218 / 134; Pulse 93; Resp 25; Temp 98.1; Pulse Ox 98% ; jl7 15:59 BP 226 / 136; Pulse 90; Resp 19; Pulse Ox 99% ; Pain 0/10; jl7 16:25 BP 211 / 131; Pulse 90; Resp 21; Pulse Ox 99% ; jl7 17:00 BP 163 / 112; Pulse 82; Resp 17; Pulse Ox 96% ; jl7 17:40 BP 153 / 113; Pulse 84; Resp 17; Pulse Ox 96% ; jl7 NIH Stroke Scale Scores: 15:22 NIHSS Score: 2 jl7 MDM: 15:34 Patient medically screened. pm1 16:06 ED course: Patient complaining of worsening anxiety over his vision changes. Will give pm1 anxiety medication. 16:26 ED course: Pending UDS. Patient reports using two lines of cocaine on Monday. pm1 16:36 [facility], was contacted pm1 at 16:32, regarding consult, patient's condition, and will see patient in office, 11:15 [place] office. tomorrow, updated patient and his about plan. 17:02 Data reviewed: vital signs. Data interpreted: Pulse oximetry: on room air is 99 %. pm1 Interpretation: normal. 17:13 Counseling: I had a detailed discussion with the patient and/or guardian regarding: the pm1 historical points, exam findings, and any diagnostic results supporting the discharge/admit diagnosis, lab results, radiology results, the need for outpatient follow up, an opthalmologist, to return to the emergency department if symptoms worsen or persist or if there are any questions or concerns that arise at home. 06/13 15:34 Order name: Basic Metabolic Panel; Complete Time: 16:04 pm1 06/13 15:34 Order name: CBC with Diff; Complete Time: 16:04 pm1 06/13 15:34 Order name: Protime (+inr); Complete Time: 16:04 pm1 06/13 15:34 Order name: Ptt, Activated; Complete Time: 16:04 pm1 06/13 15:34 Order name: Acetaminophen; Complete Time: 16:04 pm1 06/13 15:34 Order name: ETOH Level; Complete Time: 16:04 pm1 06/13 15:19 Order name: Ct Stroke Brain Wo Cont; Complete Time: 15:35 EDMS 06/13 15:34 Order name: Stroke CXR 1 View; Complete Time: 16:20 pm1 06/13 15:34 Order name: Hepatic Function; Complete Time: 16:04 pm1 06/13 15:34 Order name: Salicylate pm1 06/13 15:34 Order name: Urine Drug Screen; Complete Time: 17:02 pm1 06/13 15:50 Order name: Glucose, Ancillary Testing; Complete Time: 16:04 EDMS 06/13 16:28 Order name: Urine Dipstick--Ancillary (enter results) eb 06/13 15:34 Order name: EKG; Complete Time: 15:35 pm1 06/13 15:34 Order name: Accucheck; Complete Time: 15:40 pm1 06/13 15:34 Order name: Cardiac monitoring; Complete Time: 15:40 pm1 06/13 15:34 Order name: EKG - Nurse/Tech; Complete Time: 15:40 pm1 06/13 15:34 Order name: IV Saline Lock; Complete Time: 15:40 pm1 06/13 15:34 Order name: Labs collected and sent; Complete Time: 15:40 pm1 06/13 15:34 Order name: NPO; Complete Time: 15:40 pm1 06/13 15:34 Order name: O2 Per Protocol; Complete Time: 15:40 pm1 06/13 15:34 Order name: O2 Sat Monitoring; Complete Time: 15:40 pm1 06/13 15:34 Order name: Stroke Swallow Screen; Complete Time: 17:32 pm1 06/13 15:34 Order name: Urine Dipstick-Ancillary (obtain specimen); Complete Time: 17:32 pm1 EC:32 Rate is 95 beats/min. Rhythm is regular, Normal Sinus Rhythm with No ectopy. QRS [place] pm1 is Normal. [place] interval is normal. No Q waves. T waves are Normal. No ST changes noted. Clinical impression: Normal ECG. Administered Medications: 17:15 Drug: Ativan 1 mg Route: IVP; Site: right antecubital; jl7 17:30 Follow up: Response: No adverse reaction; Anxiety decreased jl7 Point of Care Testing: Blood Glucose: 15:30 Blood Glucose: 150 mg/dL; jl7 Ranges: Critical Glucose Levels:Adult <50 mg/dl or >400 mg/dl <40 mg/dl or >180 mg/dl Disposition: 06/13/20 17:16 Discharged to Home. Impression: Unspecified visual disturbance - right eye blurred vision. - Condition is Stable. - Discharge Instructions: Visual Disturbances. - Prescriptions for Ativan 0.5 mg Oral Tablet - take 1 tablet by ORAL route every 8 hours As needed; 6 tablet. - Medication Reconciliation Form, Thank You Letter, Antibiotic Education, Prescription Opioid Use form. - Follow up: Emergency Department; When: As needed; Reason: Worsening of condition. Follow up: Private Physician; When: 11:15 at the [facility]. - Problem is new. - Symptoms have improved. - Notes: See Dr. Schmitz tomorrow at 11:15 at the [facility] NIH Stroke Scale - NIH Stroke Score Date: 06/13/2020 Time: 15:22 Total Score = 2 1a. Level of Consciousness (LOC) - 0(Alert) 1b. Level of Consciousness (LOC) (Year \T\ Age) - 0(Both) 1c. LOC Commands (Open \T\ Closes Eyes/Excel Expert) - 0(Both) 2. Best Gaze (Lateral Gaze Paresis) - 0(Normal) 3. Visual Field Loss - 2(Complete hemianopia) 4. Facial Palsy - 0(Normal) 5a. Left Arm: Motor (10-second hold) - 0(No drift) 5b. Right Arm: Motor (10-second hold) - 0(No drift) 6a. Left Leg: Motor (5-second hold - always test supine) - 0(No drift) 6b. Right Leg: Motor (5-second hold - always test supine) - 0(No drift) 7. Limb Ataxia (finger/nose \T\ heel/mays - test with eyes open) - 0(Absent) 8. Sensory Loss (pinprick arms/legs/face) - 0(Normal) 9. Best Language: Aphasia (description/naming/reading) - 0(No aphasia) 10. Dysarthria (speech clarity - read or repeat words) - 0(Normal) 11. Extinction and Inattention (visual/tactile/auditory/spatial/personal) - 0(No abnormality) Initials: jl7 Addendum: 06/15/2020 07:00 Co-signature as Attending Physician, Dipesh Patterson MD I agree with the [facility] assessment and plan of care. Signatures: Dispatcher [employer] EDMS Dipesh Patterson MD MD [facility] Naseem Engel NP CERTIFIED ALCOHOL DRUG COUNSELOR pm1 Honey Girard RN RN jl7 Corrections: (The following items were deleted from the chart) 06/13 17:48 17:16 06/13/2020 17:16 Discharged to Home. Impression: Unspecified visual jl7 disturbance - right eye blurred vision. Condition is Stable. Forms are Medication Reconciliation Form, Thank You Letter, Antibiotic Education, Prescription Opioid Use. Follow up: Emergency Department; When: As needed; Reason: Worsening of condition. Follow up: Private Physician; When: 11:15 at the [facility]. Problem is new. Symptoms have improved. pm1
[2020-06-13 17:49] LABS: Urine Blood 2+ (NEG); Urine Glucose 2+ (NEG); Urine Protein 3+ (NEG)
[2020-06-13 17:54] VITALS: TEMP 98.1
[2020-06-13 17:59] VITALS: O2SAT 96
[2020-06-13 18:00] VITALS: BP 153/113
--- OUTSIDE RECORDS SUMMARY | 2020-06-17 23:22 | XMS REPORT | Continuity of Care Document ---
:1970 Author Organization [facility] t Address [address] [place] [address] Dr. Gibson [address] [place] [id number] Care Team Providers Name Role Phone Unavailable Unavailable Unavailable Problems This patient has no known problems. Allergies, Adverse Reactions, Alerts This patient has no known allergies or adverse reactions. Medications This patient has no known medications. Procedures This patient has no known procedures. Results This patient has no known results.
== END 2020-06-13 17:48 | disposition home or self-care (01) ==
LOC: ER 15:10
DX: H53.8 Other visual disturbances (principal); I10 Essential (primary) hypertension; E11.9 Type 2 diabetes mellitus without complications; Z79.4 Long term (current) use of insulin
CPT/HCPCS: 36415; 70450; 71045; 80048; 80076; 80307; 80320; 80329; 81003; 82947; 85025; 85610; 85730; 93005; 96374; 99285

== ENCOUNTER 2023-09-11 11:55 | Observation (INO) | payer MEDICARE, SELFPAY ==
--- OUTSIDE RECORDS SUMMARY | 2023-09-11 12:00 | XMS REPORT | Continuity of Care Document ---
Author Name Unknown Address [address] [facility] [place] [address] [facility] thconnect Address [address] [facility] [place] [address] Care Team Providers Care Plant Wire Chief Name Role Phone Carmen Akhtar MD Primary Care Physician Yunier Barrow Attending Clinician Unavailable Rahul Jasmine Attending Clinician Unavailable GAYLORD_S Attending Clinician Unavailable Deshazo_T Attending Clinician Unavailable BERENICE ASHER Attending Clinician Unavailab Berenice Dooley DO Attending Clinician [phone] Carmen Akhtar MD Attending Clinician [phone] DAVIDSON TORRES Attending Clinician Unavailable Davidson Torres MD Attending Clinician [phone] CARMEN AKHTAR Attending Clinician Unava ilREENA Rosenthal Attending Clinician Unavailable Enoc Vega Attending Clinician [phone] Tere Luna Attending Clinician [phone] TERE HEDRICK Attending Clinician Unavailable RUSLAN POSADAS Attending Clinician Unav ailable WILLIAM HERMAN Attending Clinician Unavaila ble LUNAOV, STRAHIL T Attending Clinician Unavaila BENNETT Gonzalez Attending Clinician Unavailable TON ARAGON Attending Clinician UnavailSHELBY Currie Attending Clinician Unavailable GAYLORD_S Admitting Clinician Unavailable Deshazo_T Admitting Clinician Unavailable Payers Payer Name Policy Type Policy Number Effective Date Expirati on Date Source [facility] [id number] 2019 00:00:00 [employer] (MEDICARE REPLACEMENT HMO) [id number] 2020 00:00:00 [employer] MEDICARE ADVANTAGE PLAN [id number] 2021 00:00:00 COMMERCIAL NON-CONTRACT GENERIC [id number] 2020 00:00:00 MEDICARE PART A \\T\\ B [id number] 2021 00:00:00 Problems Condition Name Condition Details Condition Category Status Onset Date Resolution Date Last Treatment Date Treating Clinician Comments Source Excessive daytime sleepiness Excessive daytime sleepiness Disease Active 30 00:00: 00 [facility] Chronic arterial ischemic stroke Chronic arterial ischemic stroke Disease Active 24 00:00: 00 [facility] Essential hypertensi on Essential hypertensi on Disease Active 6-24 00:00: 00 [facility] Neuropathy of both feet Neuropathy of both feet Disease Active 6-24 00:00: 00 [facility] Legal blindness Legal blindness Disease Active 5-14 00:00: 00 [facility] Abnormal finding on CT scan Abnormal finding on CT scan Disease Active 2019-09 0-12 00:00: 00 [facility] Stroke Stroke Disease Active 2019-09 0-10 00:00: 00 [facility] Uncontroll ed type 2 diabetes mellitus with hyperglyce thalia Uncontroll ed type 2 diabetes mellitus with hyperglyce thalia Disease Active 5-05 00:00: 00 [facility] [id number] Moderate major depression , single episode Problem [facility] [id number] Type 2 diabetes mellitus with other diabetic kidney complicati on Problem [facility] [id number] Type 2 diabetes mellitus with diabetic chronic kidney disease Problem Common [facility] [id number] Chronic kidney disease, stage 3 unspecifie d Problem [facility] Depression Depression Problem [facility] [id number] Current use of insulin Problem [facility] Hypertensi on HTN (hypertens ion) Problem [facility] Erectile dysfunctio n Erectile dysfunctio n Problem [facility] Vitamin D deficiency Vitamin D deficiency Problem [facility] Mixed hyperlipid emia Mixed hyperlipid emia Problem [facility] Anxiety Anxiety Problem [facility] Hyperglyce thalia due to type 2 diabetes mellitus Uncontroll ed type 2 diabetes mellitus with hyperglyce thalia Problem [facility] Allergies, Adverse Reactions, Alerts Allergy Name Allergy Type Status Severity Reaction(s) Onset Date Inactive Date Treating Clinician Comments Source Amlodipi ne Propensi ty to adverse reaction s Active Diarrhea 2020-09 00:00: 00 severe [facility] AMLODIPI NE DRUG INGREDI Active Diarrhea 2020-09 00:00: 00 [facility] Social History Social Habit Start Date Stop Date Quantity Comments Source History of Tobacco Use Current Smoker [facility] Sex Assigned At [facility] History SDOH Alcohol Frequency [facility] History SDOH [facility] SDOH Alcohol Binge [facility] Exposure to SARS-CoV-2 (event) 2022-10-12 00:00:00 2022-10-22 14:30:00 Not sure [facility] Alcohol intake 2022-01-05 00:00:00 2022-01-05 00:00:00 1.71 /d [facility] Cigarettes smoked current (pack per day) - Reported 2021-03-04 00:00:00 2021-03-04 00:00:00 [facility] Cigarette pack-years 2021-03-04 00:00:00 2021-03-04 00:00:00 [facility] Tobacco use and exposure 2021-03-04 00:00:00 2021-03-04 00:00:00 Smokeless tobacco non-user [facility] Alcohol Comment 2021-03-04 00:00:00 2021-03-04 00:00:00 was drinking daily, now a couple days a week [facility] Education 2020-12-15 00:00:00 2020-12-15 00:00:00 8 [facility] Smoking Status Start Date Stop Date Source Current Smoker 2022-11-22 00:00:00 [facility] Ex-smoker 2021-03-04 00:00:00 2021-03-04 [facility] Ordered Medication Name Filled Medication Name Start Date Stop Date Current Medication? Ordering Clinician Indication Dosage Frequency Signature (SIG) Comments Components Source diphenhydrA MINE (BENADRYL) tablet 50 mg 10-22 20:30: 00 10-22 20:29 :00 No 50mg 50 mg, Oral, ONCE, 1 dose, On 10/22/22 at 1430, BROOKE [facility] Victoza 18 MG/3ML Victoza 18 MG/3ML 03-02 00:00: 00 04-29 00:00 :00 No QD Victoza 18 MG/3ML Victoza 18 MG/3ML Victoza 18 MG/3ML 03-02 00:00: 00 04-29 00:00 :00 No QD Victoza 18 MG/3ML Victoza 18 MG/3ML Victoza 18 MG/3ML 03-02 00:00: 00 04-01 00:00 :00 No QD Victoza 18 MG/3ML Vitamin D3 63888 UNIT Vitamin D3 07857 UNIT 03-01 00:00: 00 05-30 00:00 :00 No 1{capsu le} Vitamin D3 59660 UNIT Vitamin D3 60610 UNIT Vitamin D3 97069 UNIT 03-01 00:00: 00 05-30 00:00 :00 No 1{capsu le} Vitamin D3 55454 UNIT Vitamin D3 42507 UNIT Vitamin D3 38045 UNIT 03-01 00:00: 00 05-30 00:00 :00 No 1{capsu le} Vitamin D3 77069 UNIT cloNIDine (CATAPRES) tablet 0.2 mg 01-06 13:00: 00 Yes .2mg 0.2 mg, Oral, TID, First dose on Mon01/06/22 at 0800, Until Discontinu ed, Routine [facility] Lisinopril- hydroCHLORO thiazide 20-12.5 MG Lisinopril- hydroCHLORO thiazide 20-12.5 MG 01-04 00:00: 00 No 1{table t} QD Lisinopril -hydroCHLO ROthiazide 20-12.5 MG metFORMIN HCl ER 500 MG metFORMIN HCl ER 500 MG 01-04 00:00: 00 No BID metFORMIN HCl ER 500 MG amLODIPine Besylate 5 MG amLODIPine Besylate 5 MG 01-04 00:00: 00 No 1{table t} QD amLODIPine Besylate 5 MG Lisinopril- hydroCHLORO thiazide 20-12.5 MG Lisinopril- hydroCHLORO thiazide 20-12.5 MG 01-04 00:00: 00 No 1{table t} QD Lisinopril -hydroCHLO ROthiazide 20-12.5 MG metFORMIN HCl ER 500 MG metFORMIN HCl ER 500 MG 01-04 00:00: 00 No BID metFORMIN HCl ER 500 MG amLODIPine Besylate 5 MG amLODIPine Besylate 5 MG 01-04 00:00: 00 No 1{table t} QD amLODIPine Besylate 5 MG lancets (FREESTYLE LANCETS) 28 gauge [facility] - 00:00: 00 Yes [id number] USE ONE LANCET TO CHECK BLOOD GLUCOSE 2 TO 3 TIMES A DAY [facility] lancets (FREESTYLE LANCETS) 28 gauge [facility] - 00:00: 00 Yes [id number] USE ONE LANCET TO CHECK BLOOD GLUCOSE 2 TO 3 TIMES A DAY [facility] lancets (FREESTYLE LANCETS) 28 gauge [facility] 3- 00:00: 00 Yes [id number] USE ONE LANCET TO CHECK BLOOD GLUCOSE 2 TO 3 TIMES A DAY [facility] lancets (FREESTYLE LANCETS) 28 gauge [facility] 3-28 00:00: 00 Yes [id number] USE ONE LANCET TO CHECK BLOOD GLUCOSE 2 TO 3 TIMES A DAY [facility] blood sugar diagnostic strip 09-21 00:00: 00 Yes [id number] Check sugars 2-3 times a day. Dx Code E11.9. Brand per insurance. Patient has uncontroll ed diabetes and needs to check sugars at least 2 times a day. ACCU-CHEK- same brand as meter [facility] Blood-Gluco se Meter Kit 09-21 00:00: 00 Yes [id number] Check sugars 2-3 times a day. Dx Code E11.9. Brand per insurance. Patient has uncontroll ed diabetes and needs to check sugars at least 2 times a day. ACCU-CHEK [facility] Lancets [facility] 09-21 00:00: 00 Yes [id number] Check sugars 2-3 times a day. Dx Code E11.9. Brand per insurance. Patient has uncontroll ed diabetes and needs to check sugars at least 2 times a day. ACCU-CHEK- same brand as meter [facility] blood sugar diagnostic strip 09-21 00:00: 00 Yes [id number] Check sugars 2-3 times a day. Dx Code E11.9. Brand per insurance. Patient has uncontroll ed diabetes and needs to check sugars at least 2 times a day. ACCU-CHEK- same brand as meter [facility] Blood-Gluco se Meter Kit 09-21 00:00: 00 Yes [id number] Check sugars 2-3 times a day. Dx Code E11.9. Brand per insurance. Patient has uncontroll ed diabetes and needs to check sugars at least 2 times a day. ACCU-CHEK [facility] blood sugar diagnostic strip 09-21 00:00: 00 Yes [id number] Check sugars 2-3 times a day. Dx Code E11.9. Brand per insurance. Patient has uncontroll ed diabetes and needs to check sugars at least 2 times a day. ACCU-CHEK- same brand as meter [facility] Blood-Gluco se Meter Kit 09-21 00:00: 00 Yes [id number] Check sugars 2-3 times a day. Dx Code E11.9. Brand per insurance. Patient has uncontroll ed diabetes and needs to check sugars at least 2 times a day. ACCU-CHEK [facility] blood sugar diagnostic strip 09-21 00:00: 00 Yes [id number] Check sugars 2-3 times a day. Dx Code E11.9. Brand per insurance. Patient has uncontroll ed diabetes and needs to check sugars at least 2 times a day. ACCU-CHEK- same brand as meter [facility] Blood-Gluco se Meter Kit 09-21 00:00: 00 Yes [id number] Check sugars 2-3 times a day. Dx Code E11.9. Brand per insurance. Patient has uncontroll ed diabetes and needs to check sugars at least 2 times a day. ACCU-CHEK [facility] blood sugar diagnostic strip 09-21 00:00: 00 Yes [id number] Check sugars 2-3 times a day. Dx Code E11.9. Brand per insurance. Patient has uncontroll ed diabetes and needs to check sugars at least 2 times a day. ACCU-CHEK- same brand as meter [facility] Blood-Gluco se Meter Kit 09-21 00:00: 00 Yes [id number] Check sugars 2-3 times a day. Dx Code E11.9. Brand per insurance. Patient has uncontroll ed diabetes and needs to check sugars at least 2 times a day. ACCU-CHEK [facility] Lancets Misc 09-21 00:00: 00 12-06 00:00 :00 No [id number] Check sugars 2-3 times a day. Dx Code E11.9. Brand per insurance. Patient has uncontroll ed diabetes and needs to check sugars at least 2 times a day. ACCU-CHEK- same brand as meter [facility] sildenafiL (VIAGRA) 100 mg tablet 09-17 00:00: 00 Yes [id number] 100mg Take 1 tablet by mouth daily. [facility] sildenafiL (VIAGRA) 100 mg tablet 09-17 00:00: 00 Yes [id number] 100mg Take 1 tablet by mouth daily. [facility] sildenafiL (VIAGRA) 100 mg tablet 09-17 00:00: 00 Yes [id number] 100mg Take 1 tablet by mouth daily. [facility] sildenafiL (VIAGRA) 100 mg tablet 09-17 00:00: 00 Yes [id number] 100mg Take 1 tablet by mouth daily. [facility] metformin ER 500 mg 24 hr tablet 2020-09 00:00: 00 Yes [id number] 1000mg Take 2 tablets by mouth 2 (two) times daily. [facility] lisinopriL- hydrochloro thiazide 20-25 mg per tablet 2020-09 00:00: 00 Yes [id number] 1{tbl} Take 1 tablet by mouth daily. [facility] doxazosin 2 mg tablet 2020-09 00:00: 00 Yes [id number] 2mg Take 1 tablet by mouth at bedtime. [facility] metformin ER 500 mg 24 hr tablet 2020-09 00:00: 00 Yes [id number] 1000mg Take 2 tablets by mouth 2 (two) times daily. [facility] lisinopriL- hydrochloro thiazide 20-25 mg per tablet 2020-09 00:00: 00 Yes [id number] 1{tbl} Take 1 tablet by mouth daily. [facility] doxazosin 2 mg tablet 2020-09 00:00: 00 Yes [id number] 2mg Take 1 tablet by mouth at bedtime. [facility] metformin ER 500 mg 24 hr tablet 2020-09 00:00: 00 Yes [id number] 1000mg Take 2 tablets by mouth 2 (two) times daily. [facility] lisinopriL- hydrochloro thiazide 20-25 mg per tablet 2020-09 00:00: 00 Yes [id number] 1{tbl} Take 1 tablet by mouth daily. [facility] doxazosin 2 mg tablet 2020-09 00:00: 00 Yes [id number] 2mg Take 1 tablet by mouth at bedtime. [facility] metformin ER 500 mg 24 hr tablet 2020-09 00:00: 00 Yes [id number] 1000mg Take 2 tablets by mouth 2 (two) times daily. [facility] lisinopriL- hydrochloro thiazide 20-25 mg per tablet 2020-09 00:00: 00 Yes [id number] 1{tbl} Take 1 tablet by mouth daily. [facility] doxazosin 2 mg tablet 2020-09 00:00: 00 Yes [id number] 2mg Take 1 tablet by mouth at bedtime. [facility] metformin ER 500 mg 24 hr tablet 2020-09 00:00: 00 Yes [id number] 1000mg Take 2 tablets by mouth 2 (two) times daily. [facility] lisinopriL- hydrochloro thiazide 20-25 mg per tablet 2020-09 00:00: 00 Yes [id number] 1{tbl} Take 1 tablet by mouth daily. [facility] doxazosin 2 mg tablet 2020-09 00:00: 00 Yes [id number] 2mg Take 1 tablet by mouth at bedtime. [facility] bimatoprost (LUMIGAN) 0.01 % ophthalmic drops 05-06 11:38: 50 Yes 1[drp] Place 1 Drop in each eye daily. [facility] bimatoprost (LUMIGAN) 0.01 % ophthalmic drops 05-06 11:38: 50 Yes 1[drp] Place 1 Drop in each eye daily. [facility] bimatoprost (LUMIGAN) 0.01 % ophthalmic drops 05-06 11:38: 50 Yes 1[drp] Place 1 Drop in each eye daily. [facility] bimatoprost (LUMIGAN) 0.01 % ophthalmic drops 05-06 11:38: 50 Yes 1[drp] Place 1 Drop in each eye daily. [facility] bimatoprost (LUMIGAN) 0.01 % ophthalmic drops 05-06 11:38: 50 Yes 1[drp] Place 1 Drop in each eye daily. [facility] atorvastati n 20 mg tablet 04-09 08:46: 06 Yes 20mg Take 20 mg by mouth at bedtime. [facility] atorvastati n 20 mg tablet 04-09 08:46: 06 Yes 20mg Take 20 mg by mouth at bedtime. [facility] atorvastati n 20 mg tablet 04-09 08:46: 06 Yes 20mg Take 20 mg by mouth at bedtime. [facility] atorvastati n 20 mg tablet 04-09 08:46: 06 Yes 20mg Take 20 mg by mouth at bedtime. [facility] atorvastati n 20 mg tablet 04-09 08:46: 06 Yes 20mg Take 20 mg by mouth at bedtime. [facility] Insulin Regular Human (NOVOLIN R FLEXPEN) 100 unit/mL (3 mL) In 04-09 00:00: 00 Yes [id number] Check blood sugars fasting before meals and 2 hours after 1 meal of the day. If sugars are 180-200 take 6 units of insulin, 201-250 take 8 units, 251-300 take 10 units, 301-350 take 12 units, 351-400 take 14 units, 401-450 take 16 units, 451-500 take 18 units, if >500 take 20 units, recheck in 2 hours. If still high call the clinic. [facility] Insulin Regular Human (NOVOLIN R FLEXPEN) 100 unit/mL (3 mL) In 04-09 00:00: 00 Yes [id number] Check blood sugars fasting before meals and 2 hours after 1 meal of the day. If sugars are 180-200 take 6 units of insulin, 201-250 take 8 units, 251-300 take 10 units, 301-350 take 12 units, 351-400 take 14 units, 401-450 take 16 units, 451-500 take 18 units, if >500 take 20 units, recheck in 2 hours. If still high call the clinic. [facility] Insulin Regular Human (NOVOLIN R FLEXPEN) 100 unit/mL (3 mL) [facility] 04-09 00:00: 00 Yes [id number] Check blood sugars fasting before meals and 2 hours after 1 meal of the day. If sugars are 180-200 take 6 units of insulin, 201-250 take 8 units, 251-300 take 10 units, 301-350 take 12 units, 351-400 take 14 units, 401-450 take 16 units, 451-500 take 18 units, if >500 take 20 units, recheck in 2 hours. If still high call the clinic. [facility] Insulin Regular Human (NOVOLIN R FLEXPEN) 100 unit/mL (3 mL) [facility] 04-09 00:00: 00 Yes [id number] Check blood sugars fasting before meals and 2 hours after 1 meal of the day. If sugars are 180-200 take 6 units of insulin, 201-250 take 8 units, 251-300 take 10 units, 301-350 take 12 units, 351-400 take 14 units, 401-450 take 16 units, 451-500 take 18 units, if >500 take 20 units, recheck in 2 hours. If still high call the clinic. [facility] Insulin Regular Human (NOVOLIN R FLEXPEN) 100 unit/mL (3 mL) [facility] 04-09 00:00: 00 Yes [id number] Check blood sugars fasting before meals and 2 hours after 1 meal of the day. If sugars are 180-200 take 6 units of insulin, 201-250 take 8 units, 251-300 take 10 units, 301-350 take 12 units, 351-400 take 14 units, 401-450 take 16 units, 451-500 take 18 units, if >500 take 20 units, recheck in 2 hours. If still high call the clinic. [facility] Blood-Gluco se Meter Kit 04-09 00:00: 00 09-21 00:00 :00 No [id number] Check sugars 2-3 times a day. Dx Code E11.9. Brand per insurance. Patient has uncontroll ed diabetes and needs to check sugars at least 2 times a day. [facility] blood sugar diagnostic strip 04-09 00:00: 09-21 00:00 :00 No [id number] Check sugars 2-3 times a day. Dx Code E11.9. Brand per insurance. Patient has uncontroll ed diabetes and needs to check sugars at least 2 times a day. [facility] Lancets Misc 04-09 00:00: 00 09-21 00:00 :00 No [id number] Check sugars 2-3 times a day. Dx Code E11.9. Brand per insurance. Patient has uncontroll ed diabetes and needs to check sugars at least 2 times a day. [facility] sildenafiL (VIAGRA) 100 mg tablet 04-09 00:00: 00 09-17 00:00 :00 No [id number] 100mg Take 1 tablet by mouth daily. [facility] ergocalcife rol, vitamin d2, (VITAMIN D2) 1,250 mcg (50,000 unit) capsule 03-08 00:00: 00 Yes [id number] Take 1 capsule by mouth weekly. [facility] insulin syr/ndl U100 half jazmine 0.3 mL 30 gauge x 1/2" Syrg 03-08 00:00: 00 Yes [id number] 1{syrin ge} 1 Syringe 2 (two) times daily. [facility] ergocalcife rol, vitamin d2, (VITAMIN D2) 1,250 mcg (50,000 unit) capsule 03-08 00:00: 00 Yes [id number] Take 1 capsule by mouth weekly. [facility] insulin syr/ndl U100 half jazmine 0.3 mL 30 gauge x 1/2" Syrg 03-08 00:00: 00 Yes [id number] 1{syrin ge} 1 Syringe 2 (two) times daily. [facility] ergocalcife rol, vitamin d2, (VITAMIN D2) 1,250 mcg (50,000 unit) capsule 03-08 00:00: 00 Yes [id number] Take 1 capsule by mouth weekly. [facility] insulin syr/ndl U100 half jazmine 0.3 mL 30 gauge x 1/2" Syrg 03-08 00:00: 00 Yes [id number] 1{syrin ge} 1 Syringe 2 (two) times daily. [facility] ergocalcife rol, vitamin d2, (VITAMIN D2) 1,250 mcg (50,000 unit) capsule 03-08 00:00: 00 Yes [id number] Take 1 capsule by mouth weekly. [facility] insulin syr/ndl U100 half jazmine 0.3 mL 30 gauge x 1/2" Syrg 03-08 00:00: 00 Yes [id number] 1{syrin ge} 1 Syringe 2 (two) times daily. [facility] ergocalcife rol, vitamin d2, (VITAMIN D2) 1,250 mcg (50,000 unit) capsule 03-08 00:00: 00 Yes [id number] Take 1 capsule by mouth weekly. [facility] insulin syr/ndl U100 half jazmine 0.3 mL 30 gauge x 1/2" Syrg 03-08 00:00: 00 Yes [id number] 1{syrin ge} 1 Syringe 2 (two) times daily. [facility] insulin glargine (LANTUS U-100 INSULIN) 100 unit/mL injection 03-04 00:00: 00 Yes [id number] 20U inject 20 Units under the skin daily. [facility] insulin glargine (LANTUS U-100 INSULIN) 100 unit/mL injection 03-04 00:00: 00 Yes [id number] 20U inject 20 Units under the skin daily. [facility] insulin glargine (LANTUS U-100 INSULIN) 100 unit/mL injection 03-04 00:00: 00 Yes [id number] 20U inject 20 Units under the skin daily. [facility] insulin glargine (LANTUS U-100 INSULIN) 100 unit/mL injection 03-04 00:00: 00 Yes [id number] 20U inject 20 Units under the skin daily. [facility] insulin glargine (LANTUS U-100 INSULIN) 100 unit/mL injection 03-04 00:00: 00 Yes [id number] 20U inject 20 Units under the skin daily. [facility] prednisoLON E acetate 1 % ophthalmic suspension drops 12-18 00:00: 00 Yes 1[drp] Place 1 Drop in both eyes daily. [facility] prednisoLON E acetate 1 % ophthalmic suspension drops 12-18 00:00: 00 Yes 1[drp] Place 1 Drop in both eyes daily. [facility] prednisoLON E acetate 1 % ophthalmic suspension drops 12-18 00:00: 00 Yes 1[drp] Place 1 Drop in both eyes daily. [facility] prednisoLON E acetate 1 % ophthalmic suspension drops 12-18 00:00: 00 Yes 1[drp] Place 1 Drop in both eyes daily. [facility] prednisoLON E acetate 1 % ophthalmic suspension drops 12-18 00:00: 00 Yes 1[drp] Place 1 Drop in both eyes daily. [facility] metFORMIN HCl 500 MG metFORMIN HCl 500 MG No 1{table t_with_ a_meal} QD metFORMIN HCl 500 MG Sildenafil Citrate 100 MG Sildenafil Citrate 100 MG No 1{table t_as_ne eded} QD Sildenafil Citrate 100 MG Lisinopril 20 MG Lisinopril 20 MG No 1{table t} QD Lisinopril 20 MG Sildenafil Citrate 100 MG Sildenafil Citrate 100 MG No 1{table t_as_ne eded} QD Sildenafil Citrate 100 MG amLODIPine Besylate 5 MG amLODIPine Besylate 5 MG No 1{table t} QD amLODIPine Besylate 5 MG Lisinopril- hydroCHLORO thiazide 20-12.5 MG Lisinopril- hydroCHLORO thiazide 20-12.5 MG No 1{table t} QD Lisinopril -hydroCHLO ROthiazide 20-12.5 MG Atorvastati n Calcium 20 MG Atorvastati n Calcium 20 MG No 1{table t} QD Atorvastat in Calcium 20 MG metFORMIN HCl ER 500 MG metFORMIN HCl ER 500 MG No BID metFORMIN HCl ER 500 MG Lisinopril 20 MG Lisinopril 20 MG No 1{table t} QD Lisinopril 20 MG metFORMIN HCl 500 MG metFORMIN HCl 500 MG No 1{table t_with_ a_meal} QD metFORMIN HCl 500 MG metFORMIN HCl ER 500 MG metFORMIN HCl ER 500 MG No BID metFORMIN HCl ER 500 MG Atorvastati n Calcium 20 MG Atorvastati n Calcium 20 MG No 1{table t} QD Atorvastat in Calcium 20 MG amLODIPine Besylate 5 MG amLODIPine Besylate 5 MG No 1{table t} QD amLODIPine Besylate 5 MG amLODIPine Besylate 5 MG amLODIPine Besylate 5 MG No amLODIPine Besylate 5 MG Sildenafil Citrate 100 MG Sildenafil Citrate 100 MG No 1{table t_as_ne eded} QD Sildenafil Citrate 100 MG Lisinopril 20 MG Lisinopril 20 MG No 1{table t} QD Lisinopril 20 MG metFORMIN HCl 500 MG metFORMIN HCl 500 MG No 1{table t_with_ a_meal} QD metFORMIN HCl 500 MG Lisinopril- hydroCHLORO thiazide 20-12.5 MG Lisinopril- hydroCHLORO thiazide 20-12.5 MG No 2{table t} QD Lisinopril -hydroCHLO ROthiazide 20-12.5 MG Lisinopril 20 MG Lisinopril 20 MG No 1{table t} QD Lisinopril 20 MG metFORMIN HCl ER 500 MG metFORMIN HCl ER 500 MG No BID metFORMIN HCl ER 500 MG Atorvastati n Calcium 20 MG Atorvastati n Calcium 20 MG No 1{table t} QD Atorvastat in Calcium 20 MG amLODIPine Besylate 5 MG amLODIPine Besylate 5 MG No 1{table t} QD amLODIPine Besylate 5 MG Sildenafil Citrate 100 MG Sildenafil Citrate 100 MG No 1{table t_as_ne eded} QD Sildenafil Citrate 100 MG metFORMIN HCl 500 MG metFORMIN HCl 500 MG No 1{table t_with_ a_meal} QD metFORMIN HCl 500 MG amLODIPine Besylate 5 MG amLODIPine Besylate 5 MG No amLODIPine Besylate 5 MG Lisinopril- hydroCHLORO thiazide 20-12.5 MG Lisinopril- hydroCHLORO thiazide 20-12.5 MG No 2{table t} QD Lisinopril -hydroCHLO ROthiazide 20-12.5 MG Lisinopril 20 MG Lisinopril 20 MG No 1{table t} QD Lisinopril 20 MG metFORMIN HCl ER 500 MG metFORMIN HCl ER 500 MG No BID metFORMIN HCl ER 500 MG Atorvastati n Calcium 20 MG Atorvastati n Calcium 20 MG No 1{table t} QD Atorvastat in Calcium 20 MG amLODIPine Besylate 5 MG amLODIPine Besylate 5 MG No 1{table t} QD amLODIPine Besylate 5 MG Sildenafil Citrate 100 MG Sildenafil Citrate 100 MG No 1{table t_as_ne eded} QD Sildenafil Citrate 100 MG metFORMIN HCl 500 MG metFORMIN HCl 500 MG No 1{table t_with_ a_meal} QD metFORMIN HCl 500 MG amLODIPine Besylate 5 MG amLODIPine Besylate 5 MG No amLODIPine Besylate 5 MG Lisinopril- hydroCHLORO thiazide 20-12.5 MG Lisinopril- hydroCHLORO thiazide 20-12.5 MG No 2{table t} QD Lisinopril -hydroCHLO ROthiazide 20-12.5 MG amLODIPine Besylate 5 MG amLODIPine Besylate 5 MG No 1{table t} QD amLODIPine Besylate 5 MG metFORMIN HCl ER 500 MG metFORMIN HCl ER 500 MG No BID metFORMIN HCl ER 500 MG Sildenafil Citrate 100 MG Sildenafil Citrate 100 MG No 1{table t_as_ne eded} QD Sildenafil Citrate 100 MG amLODIPine Besylate 5 MG amLODIPine Besylate 5 MG No amLODIPine Besylate 5 MG Victoza 18 MG/3ML Victoza 18 MG/3ML No QD Victoza 18 MG/3ML Atorvastati n Calcium 20 MG Atorvastati n Calcium 20 MG No 1{table t} QD Atorvastat in Calcium 20 MG metFORMIN HCl 500 MG metFORMIN HCl 500 MG No 1{table t_with_ a_meal} QD metFORMIN HCl 500 MG Lisinopril- hydroCHLORO thiazide 20-12.5 MG Lisinopril- hydroCHLORO thiazide 20-12.5 MG No 2{table t} QD Lisinopril -hydroCHLO ROthiazide 20-12.5 MG Lisinopril 20 MG Lisinopril 20 MG No 1{table t} QD Lisinopril 20 MG Vitamin D3 93654 UNIT Vitamin D3 42701 UNIT No 1{capsu le} Vitamin D3 45769 UNIT amLODIPine Besylate 5 MG amLODIPine Besylate 5 MG No 1{table t} QD amLODIPine Besylate 5 MG metFORMIN HCl ER 500 MG metFORMIN HCl ER 500 MG No BID metFORMIN HCl ER 500 MG Sildenafil Citrate 100 MG Sildenafil Citrate 100 MG No 1{table t_as_ne eded} QD Sildenafil Citrate 100 MG amLODIPine Besylate 5 MG amLODIPine Besylate 5 MG No amLODIPine Besylate 5 MG Victoza 18 MG/3ML Victoza 18 MG/3ML No QD Victoza 18 MG/3ML Atorvastati n Calcium 20 MG Atorvastati n Calcium 20 MG No 1{table t} QD Atorvastat in Calcium 20 MG metFORMIN HCl 500 MG metFORMIN HCl 500 MG No 1{table t_with_ a_meal} QD metFORMIN HCl 500 MG Lisinopril- hydroCHLORO thiazide 20-12.5 MG Lisinopril- hydroCHLORO thiazide 20-12.5 MG No 2{table t} QD Lisinopril -hydroCHLO ROthiazide 20-12.5 MG Lisinopril 20 MG Lisinopril 20 MG No 1{table t} QD Lisinopril 20 MG Vitamin D3 70676 UNIT Vitamin D3 23343 UNIT No 1{capsu le} Vitamin D3 82455 UNIT amLODIPine Besylate 5 MG amLODIPine Besylate 5 MG No 1{table t} QD amLODIPine Besylate 5 MG metFORMIN HCl ER 500 MG metFORMIN HCl ER 500 MG No BID metFORMIN HCl ER 500 MG Sildenafil Citrate 100 MG Sildenafil Citrate 100 MG No 1{table t_as_ne eded} QD Sildenafil Citrate 100 MG amLODIPine Besylate 5 MG amLODIPine Besylate 5 MG No amLODIPine Besylate 5 MG Victoza 18 MG/3ML Victoza 18 MG/3ML No QD Victoza 18 MG/3ML Atorvastati n Calcium 20 MG Atorvastati n Calcium 20 MG No 1{table t} QD Atorvastat in Calcium 20 MG metFORMIN HCl 500 MG metFORMIN HCl 500 MG No 1{table t_with_ a_meal} QD metFORMIN HCl 500 MG Lisinopril- hydroCHLORO thiazide 20-12.5 MG Lisinopril- hydroCHLORO thiazide 20-12.5 MG No 2{table t} QD Lisinopril -hydroCHLO ROthiazide 20-12.5 MG Lisinopril 20 MG Lisinopril 20 MG No 1{table t} QD Lisinopril 20 MG Vitamin D3 20850 UNIT Vitamin D3 60156 UNIT No 1{capsu le} Vitamin D3 43703 UNIT amLODIPine Besylate 5 MG amLODIPine Besylate 5 MG No 1{table t} QD amLODIPine Besylate 5 MG metFORMIN HCl ER 500 MG metFORMIN HCl ER 500 MG No BID metFORMIN HCl ER 500 MG Sildenafil Citrate 100 MG Sildenafil Citrate 100 MG No 1{table t_as_ne eded} QD Sildenafil Citrate 100 MG amLODIPine Besylate 5 MG amLODIPine Besylate 5 MG No amLODIPine Besylate 5 MG Victoza 18 MG/3ML Victoza 18 MG/3ML No QD Victoza 18 MG/3ML Atorvastati n Calcium 20 MG Atorvastati n Calcium 20 MG No 1{table t} QD Atorvastat in Calcium 20 MG metFORMIN HCl 500 MG metFORMIN HCl 500 MG No 1{table t_with_ a_meal} QD metFORMIN HCl 500 MG Lisinopril- hydroCHLORO thiazide 20-12.5 MG Lisinopril- hydroCHLORO thiazide 20-12.5 MG No 2{table t} QD Lisinopril -hydroCHLO ROthiazide 20-12.5 MG Lisinopril 20 MG Lisinopril 20 MG No 1{table t} QD Lisinopril 20 MG Vitamin D3 81210 UNIT Vitamin D3 73739 UNIT No 1{capsu le} Vitamin D3 30758 UNIT amLODIPine Besylate 5 MG amLODIPine Besylate 5 MG No 1{table t} QD amLODIPine Besylate 5 MG metFORMIN HCl ER 500 MG metFORMIN HCl ER 500 MG No BID metFORMIN HCl ER 500 MG Sildenafil Citrate 100 MG Sildenafil Citrate 100 MG No 1{table t_as_ne eded} QD Sildenafil Citrate 100 MG amLODIPine Besylate 5 MG amLODIPine Besylate 5 MG No amLODIPine Besylate 5 MG Victoza 18 MG/3ML Victoza 18 MG/3ML No QD Victoza 18 MG/3ML Atorvastati n Calcium 20 MG Atorvastati n Calcium 20 MG No 1{table t} QD Atorvastat in Calcium 20 MG metFORMIN HCl 500 MG metFORMIN HCl 500 MG No 1{table t_with_ a_meal} QD metFORMIN HCl 500 MG Lisinopril- hydroCHLORO thiazide 20-12.5 MG Lisinopril- hydroCHLORO thiazide 20-12.5 MG No 2{table t} QD Lisinopril -hydroCHLO ROthiazide 20-12.5 MG Lisinopril 20 MG Lisinopril 20 MG No 1{table t} QD Lisinopril 20 MG Vitamin D3 24796 UNIT Vitamin D3 62517 UNIT No 1{capsu le} Vitamin D3 92092 UNIT metFORMIN HCl ER 500 MG metFORMIN HCl ER 500 MG No BID metFORMIN HCl ER 500 MG amLODIPine Besylate 5 MG amLODIPine Besylate 5 MG No amLODIPine Besylate 5 MG Vitamin D3 01488 UNIT Vitamin D3 73704 UNIT No 1{capsu le} Vitamin D3 30674 UNIT Atorvastati n Calcium 20 MG Atorvastati n Calcium 20 MG No 1{table t} QD Atorvastat in Calcium 20 MG metFORMIN HCl 500 MG metFORMIN HCl 500 MG No 1{table t_with_ a_meal} QD metFORMIN HCl 500 MG Victoza 18 MG/3ML Victoza 18 MG/3ML No Victoza 18 MG/3ML Victoza 18 MG/3ML Victoza 18 MG/3ML No QD Victoza 18 MG/3ML amLODIPine Besylate 5 MG amLODIPine Besylate 5 MG No 1{table t} QD amLODIPine Besylate 5 MG Sildenafil Citrate 100 MG Sildenafil Citrate 100 MG No 1{table t_as_ne eded} QD Sildenafil Citrate 100 MG Lisinopril- hydroCHLORO thiazide 20-12.5 MG Lisinopril- hydroCHLORO thiazide 20-12.5 MG No 2{table t} QD Lisinopril -hydroCHLO ROthiazide 20-12.5 MG Lisinopril 20 MG Lisinopril 20 MG No 1{table t} QD Lisinopril 20 MG metFORMIN HCl ER 500 MG metFORMIN HCl ER 500 MG No BID metFORMIN HCl ER 500 MG Victoza 18 MG/3ML Victoza 18 MG/3ML No QD Victoza 18 MG/3ML Vitamin D3 64380 UNIT Vitamin D3 01897 UNIT No 1{capsu le} Vitamin D3 94264 UNIT amLODIPine Besylate 5 MG amLODIPine Besylate 5 MG No amLODIPine Besylate 5 MG Atorvastati n Calcium 20 MG Atorvastati n Calcium 20 MG No Atorvastat in Calcium 20 MG Victoza 18 MG/3ML Victoza 18 MG/3ML No Victoza 18 MG/3ML Lisinopril 20 MG Lisinopril 20 MG No 1{table t} QD Lisinopril 20 MG Lisinopril- hydroCHLORO thiazide 20-12.5 MG Lisinopril- hydroCHLORO thiazide 20-12.5 MG No 2{table t} QD Lisinopril -hydroCHLO ROthiazide 20-12.5 MG Sildenafil Citrate 100 MG Sildenafil Citrate 100 MG No 1{table t_as_ne eded} QD Sildenafil Citrate 100 MG amLODIPine Besylate 5 MG amLODIPine Besylate 5 MG No 1{table t} QD amLODIPine Besylate 5 MG metFORMIN HCl 500 MG metFORMIN HCl 500 MG No 1{table t_with_ a_meal} QD metFORMIN HCl 500 MG Victoza 18 MG/3ML Victoza 18 MG/3ML No Victoza 18 MG/3ML Atorvastati n Calcium 20 MG Atorvastati n Calcium 20 MG No 1{table t} QD Atorvastat in Calcium 20 MG Sildenafil Citrate 100 MG Sildenafil Citrate 100 MG No Sildenafil Citrate 100 MG Vitamin D3 76379 UNIT Vitamin D3 51751 UNIT No 1{capsu le} Vitamin D3 28537 UNIT Lisinopril- hydroCHLORO thiazide 20-12.5 MG Lisinopril- hydroCHLORO thiazide 20-12.5 MG No 2{table t} QD Lisinopril -hydroCHLO ROthiazide 20-12.5 MG Atorvastati n Calcium 20 MG Atorvastati n Calcium 20 MG No Atorvastat in Calcium 20 MG Lisinopril 20 MG Lisinopril 20 MG No 1{table t} QD Lisinopril 20 MG metFORMIN HCl 500 MG metFORMIN HCl 500 MG No 1{table t_with_ a_meal} QD metFORMIN HCl 500 MG metFORMIN HCl ER 500 MG metFORMIN HCl ER 500 MG No BID metFORMIN HCl ER 500 MG Victoza 18 MG/3ML Victoza 18 MG/3ML No QD Victoza 18 MG/3ML amLODIPine Besylate 5 MG amLODIPine Besylate 5 MG No 1{table t} QD amLODIPine Besylate 5 MG amLODIPine Besylate 5 MG amLODIPine Besylate 5 MG No amLODIPine Besylate 5 MG Victoza 18 MG/3ML Victoza 18 MG/3ML No Victoza 18 MG/3ML Atorvastati n Calcium 20 MG Atorvastati n Calcium 20 MG No 1{table t} QD Atorvastat in Calcium 20 MG Sildenafil Citrate 100 MG Sildenafil Citrate 100 MG No Sildenafil Citrate 100 MG Vitamin D3 06785 UNIT Vitamin D3 26967 UNIT No 1{capsu le} Vitamin D3 14590 UNIT Lisinopril- hydroCHLORO thiazide 20-12.5 MG Lisinopril- hydroCHLORO thiazide 20-12.5 MG No 2{table t} QD Lisinopril -hydroCHLO ROthiazide 20-12.5 MG Atorvastati n Calcium 20 MG Atorvastati n Calcium 20 MG No Atorvastat in Calcium 20 MG Lisinopril 20 MG Lisinopril 20 MG No 1{table t} QD Lisinopril 20 MG metFORMIN HCl 500 MG metFORMIN HCl 500 MG No 1{table t_with_ a_meal} QD metFORMIN HCl 500 MG metFORMIN HCl ER 500 MG metFORMIN HCl ER 500 MG No BID metFORMIN HCl ER 500 MG Victoza 18 MG/3ML Victoza 18 MG/3ML No QD Victoza 18 MG/3ML amLODIPine Besylate 5 MG amLODIPine Besylate 5 MG No 1{table t} QD amLODIPine Besylate 5 MG amLODIPine Besylate 5 MG amLODIPine Besylate 5 MG No amLODIPine Besylate 5 MG metFORMIN HCl ER 500 MG metFORMIN HCl ER 500 MG No BID metFORMIN HCl ER 500 MG amLODIPine Besylate 5 MG amLODIPine Besylate 5 MG No amLODIPine Besylate 5 MG Vitamin D3 51680 UNIT Vitamin D3 74014 UNIT No 1{capsu le} Vitamin D3 44994 UNIT Atorvastati n Calcium 20 MG Atorvastati n Calcium 20 MG No 1{table t} QD Atorvastat in Calcium 20 MG metFORMIN HCl 500 MG metFORMIN HCl 500 MG No 1{table t_with_ a_meal} QD metFORMIN HCl 500 MG Victoza 18 MG/3ML Victoza 18 MG/3ML No Victoza 18 MG/3ML Victoza 18 MG/3ML Victoza 18 MG/3ML No QD Victoza 18 MG/3ML amLODIPine Besylate 5 MG amLODIPine Besylate 5 MG No 1{table t} QD amLODIPine Besylate 5 MG Sildenafil Citrate 100 MG Sildenafil Citrate 100 MG No 1{table t_as_ne eded} QD Sildenafil Citrate 100 MG Lisinopril- hydroCHLORO thiazide 20-12.5 MG Lisinopril- hydroCHLORO thiazide 20-12.5 MG No 2{table t} QD Lisinopril -hydroCHLO ROthiazide 20-12.5 MG Lisinopril 20 MG Lisinopril 20 MG No 1{table t} QD Lisinopril 20 MG metFORMIN HCl 500 MG metFORMIN HCl 500 MG No 1{table t_with_ a_meal} QD metFORMIN HCl 500 MG Sildenafil Citrate 100 MG Sildenafil Citrate 100 MG No 1{table t_as_ne eded} QD Sildenafil Citrate 100 MG Lisinopril 20 MG Lisinopril 20 MG No 1{table t} QD Lisinopril 20 MG Immunizations Ordered Immunization Name Filled Immunization Name Date Status Comments Source Flucelvax - single dose syringe Flucelvax - single dose syringe 2022-06-16 08:58:00 Completed [facility] Flucelvax - single dose syringe Flucelvax - single dose syringe 2022-06-16 08:58:00 Completed [facility] Flucelvax - single dose syringe Flucelvax - single dose syringe 2022-06-16 08:58:00 Completed [facility] SARS-COV-2 COVID-19 MODERNA VACCINE 2020-12-06 00:00:00 Completed [facility] SARS-COV-2 COVID-19 MODERNA VACCINE 2020-12-06 00:00:00 Completed [facility] SARS-COV-2 COVID-19 MODERNA VACCINE 2020-12-06 00:00:00 Completed [facility] SARS-COV-2 COVID-19 MODERNA 12+ YRS VACCINE 2020-12-06 00:00:00 Completed [facility] SARS-COV-2 COVID-19 MODERNA 12+ YRS VACCINE 2020-12-06 00:00:00 Completed [facility] SARS-COV-2 COVID-19 MODERNA VACCINE 2020-11-08 00:00:00 Completed [facility] SARS-COV-2 COVID-19 MODERNA VACCINE 2020-11-08 00:00:00 Completed [facility] SARS-COV-2 COVID-19 MODERNA VACCINE 2020-11-08 00:00:00 Completed [facility] SARS-COV-2 COVID-19 MODERNA 12+ YRS VACCINE 2020-11-08 00:00:00 Completed [facility] SARS-COV-2 COVID-19 MODERNA 12+ YRS VACCINE 2020-11-08 00:00:00 Completed [facility] Flucelvax - single dose syringe Flucelvax - single dose syringe Unknown Completed [facility] Flucelvax - single dose syringe Flucelvax - single dose syringe Unknown Completed [facility] Vital Signs Vital Name Observation Time Observation Value Comments S ource Systolic blood pressure 2022-10-22 20:23:00 158 mm[Hg] states he has not taken his BP medications yet today [facility] Diastolic blood pressure 2022-10-22 20:23:00 106 mm[Hg] states he has not taken his BP medications yet today [facility] Heart rate 2022-10-22 20:23:00 97 /min [facility] Body temperature 2022-10-22 20:23:00 37 Kristal [facility] Respiratory rate 2022-10-22 20:23:00 20 /min [facility] Body height 2022-10-22 20:23:00 172.7 cm [facility] Body weight 2022-10-22 20:23:00 75.751 kg [facility] BMI 2022-10-22 20:23:00 25.39 kg/m2 [facility] Oxygen saturation in Arterial blood by Pulse oximetry 2022-10-22 20:23:00 100 /min [facility] height 2022-06-16 08:20:00 66.5 [in_i] [facility] weight 2022-06-16 08:20:00 152 [lb_av] [facility] temperature 2022-06-16 08:20:00 96.7 [degF] [facility] bmi 2022-06-16 08:20:00 24.16 kg/m2 [facility] oximetry 2022-06-16 08:20:00 98 % [facility] respiratory rate 2022-06-16 08:20:00 18 /min [facility] blood pressure systolic 2022-06-16 08:20:00 138 mm[Hg] [facility] blood pressure diastolic 2022-06-16 08:20:00 82 mm[Hg] [facility] height 2022-04-04 15:00:00 68.00 [in_i] [facility] weight 2022-04-04 15:00:00 152.2 [lb_av] [facility] temperature 2022-04-04 15:00:00 98.4 [degF] [facility] bmi 2022-04-04 15:00:00 23.14 kg/m2 [facility] oximetry 2022-04-04 15:00:00 98 % [facility] respiratory rate 2022-04-04 15:00:00 18 /min [facility] blood pressure systolic 2022-04-04 15:00:00 137 mm[Hg] [facility] blood pressure diastolic 2022-04-04 15:00:00 76 mm[Hg] [facility] height 2022-04-04 15:20:00 68.00 [in_i] [facility] weight 2022-04-04 15:20:00 152.2 [lb_av] [facility] temperature 2022-04-04 15:20:00 98.4 [degF] [facility] bmi 2022-04-04 15:20:00 23.14 kg/m2 [facility] oximetry 2022-04-04 15:20:00 98 % [facility] respiratory rate 2022-04-04 15:20:00 18 /min [facility] blood pressure systolic 2022-04-04 15:20:00 137 mm[Hg] [facility] blood pressure diastolic 2022-04-04 15:20:00 76 mm[Hg] [facility] height 2022-03-02 09:10:00 68.00 [in_i] [facility] weight 2022-03-02 09:10:00 157.2 [lb_av] [facility] temperature 2022-03-02 09:10:00 97.3 [degF] [facility] bmi 2022-03-02 09:10:00 23.9 kg/m2 [facility] oximetry 2022-03-02 09:10:00 100 % [facility] respiratory rate 2022-03-02 09:10:00 18 /min [facility] blood pressure systolic 2022-03-02 09:10:00 138 mm[Hg] [facility] blood pressure diastolic 2022-03-02 09:10:00 82 mm[Hg] [facility] height 2022-02-16 08:00:00 68.00 [in_i] [facility] weight 2022-02-16 08:00:00 156.9 [lb_av] [facility] temperature 2022-02-16 08:00:00 97.2 [degF] [facility] bmi 2022-02-16 08:00:00 23.85 kg/m2 [facility] oximetry 2022-02-16 08:00:00 99 % [facility] respiratory rate 2022-02-16 08:00:00 18 /min [facility] blood pressure systolic 2022-02-16 08:00:00 132 mm[Hg] [facility] blood pressure diastolic 2022-02-16 08:00:00 76 mm[Hg] [facility] Systolic blood pressure 2022-01-06 04:43:00 189 mm[Hg] [facility] Diastolic blood pressure 2022-01-06 04:43:00 118 mm[Hg] [facility] Heart rate 2022-01-06 04:43:00 95 /min [facility] Respiratory rate 2022-01-06 04:43:00 20 /min [facility] Oxygen saturation in Arterial blood by Pulse oximetry 2022-01-06 04:43:00 99 /min [facility] Body temperature 2022-01-06 04:17:00 37.22 Kristal [facility] Body height 2022-01-06 04:17:00 172.7 cm [facility] Body weight 2022-01-06 04:17:00 77.111 kg [facility] BMI 2022-01-06 04:17:00 25.85 kg/m2 [facility] oximetry 2022-01-04 10:00:00 97 % [facility] respiratory rate 2022-01-04 10:00:00 17 /min [facility] blood pressure systolic 2022-01-04 10:00:00 137 mm[Hg] [facility] blood pressure diastolic 2022-01-04 10:00:00 85 mm[Hg] [facility] height 2022-01-04 10:00:00 68.00 [in_i] [facility] weight 2022-01-04 10:00:00 156.6 [lb_av] [facility] temperature 2022-01-04 10:00:00 97.8 [degF] [facility] bmi 2022-01-04 10:00:00 23.81 kg/m2 [facility] Procedures Procedure Date / Time Performed Performing Clinicia n Source CONSENT/REFUSAL FOR DIAGNOSIS AND TREATMENT 2022-10-22 20:18:01 Doctor Unassigned, [place] [facility] COMP. METABOLIC PANEL ([id number]) 2022-01-06 04:34:00 Davidson Torres [facility] CBC WITH DIFF 2022-01-06 04:34:[address] [facility] NOTICE OF PRIVACY PRACTICES 2022-01-06 04:06:29 Doctor Unassigned, [place] [facility] CONSENT/REFUSAL FOR DIAGNOSIS AND TREATMENT 2022-01-06 04:05:18 Doctor Unassigned, [place] [facility] Encounters Start Date/Time End Date/Time Encounter Type Admission Type Attending Clinicians Care Facility Care Department Encounter ID Source 2022-11-17 14:49:01 Outpatient Yunier Barrow [facility] [id number] [facility] 2022-08-19 11:40:02 Outpatient Yunier Barrow [facility] [id number] [facility] 2022-06-15 11:26:03 Outpatient BarrowYunier norton [facility] [id number] [facility] 2022-03-02 15:11:02 Outpatient BarrowYunier norton [facility] [id number] [facility] 2022-02-15 10:14:02 Outpatient [facility] [id number] [facility] 2022-01-04 10:07:04 Outpatient Rahul Jasmine [facility] [id number] [facility] 2021-07-11 11:01:51 Emergency [facility] [id number] [facility] 2021-07-09 22:11:41 Emergency [facility] [id number] [facility] 2023-07-22 00:00:00 2023-07-22 00:00:00 [place] [id number] [facility] 2023-04-04 00:00:00 2023-04-04 00:00:00 [place] [id number] [facility] 2023-04-04 00:00:00 2023-04-04 00:00:00 [place] [id number] [facility] 2023-02-15 00:00:00 2023-02-15 00:00:00 Outpatient GAYLORD_S DMG [place] [id number] [facility] 2023-02-15 00:00:00 2023-02-15 00:00:00 Outpatient GAYLORD_S [facility] [id number] [facility] 2022-12-13 00:00:00 2022-12-13 00:00:00 Outpatient Deshazo_T [facility] [place] [id number] [facility] 2022-12-13 00:00:00 2022-12-13 00:00:00 Outpatient Deshazo_T DM[facility] [place] [id number] [facility] 2022-11-21 00:00:00 2022-11-21 00:00:00 (TEL) STLMLC STLMLC [id number] [facility] 2022-10-24 00:00:00 2022-10-24 00:00:00 (TEL) STLMLC STLMLC [id number] [facility] 2022-10-22 14:26:00 2022-10-22 14:48:00 Emergency X BERENICE ASHER [facility] ERT [id number] [facility] 2022-10-22 14:26:00 2022-10-22 14:48:00 Emergency Berenice Asher [facility] [id number] [facility] 2022-10-21 00:00:00 2022-10-21 00:00:00 Carmen Hinson [facility] [id number] [facility] 2022-08-22 00:00:00 2022-08-22 00:00:00 (TEL) STLMLC STLMLC [id number] [facility] 2022-06-16 00:00:00 2022-06-16 00:00:00 OFFICE VISIT ESTAB PT LEVEL 4 STLMLC STLMLC [id number] [facility] 2022-04-07 00:00:00 2022-04-07 00:00:00 (TEL) STLMLC STLMLC [id number] [facility] 2022-04-04 00:00:00 2022-04-04 00:00:00 OFFICE VISIT ESTAB PT LEVEL 4 STLMLC STLMLC [id number] [facility] 2022-04-04 00:00:00 2022-04-04 00:00:00 (TEL) STLMLC STLMLC [id number] [facility] 2022-04-04 00:00:00 2022-04-04 00:00:00 SUB ANNUAL [facility] WELLNESS VISIT STLMLC STLMLC [id number] [facility] 2022-03-30 00:00:00 2022-03-30 00:00:00 (TEL) STLMLC STLMLC [id number] [facility] 2022-03-28 00:00:00 2022-03-28 00:00:00 (TEL) STLMLC STLMLC [id number] [facility] 2022-03-25 06:17:00 2022-03-25 06:17:00 [place] Deshazo_[place] [id number] [facility] 2022-03-04 00:00:00 2022-03-04 00:00:00 (TEL) STLMLC STLMLC [id number] [facility] [place] 2022-03-02 00:00:00 2022-03-02 00:00:00 OFFICE VISIT ESTAB PT LEVEL 4 STLMLC STLMLC [id number] [facility] [place] 2022-02-16 00:00:00 2022-02-16 00:00:00 PREV VISIT EST AGE 40-64 STLMLC STLMLC [id number] [facility] [place] 2022-01-25 00:00:00 2022-01-25 00:00:00 (TEL) STLMLC STLMLC [id number] [facility] [place] 2022-01-17 07:28:00 2022-01-17 07:28:00 Outpatient Deshazo_T DMG DMG [id number] [facility] 2022-01-05 23:20:00 2022-01-05 23:57:00 Emergency X DAVIDSON TORRES [facility] ERT [id number] [facility] 2022-01-05 23:20:00 2022-01-05 23:57:00 Emergency Davidson Torres [facility] [id number] [facility] 2022-01-04 00:00:00 2022-01-04 00:00:00 OFFICE VISIT NEW PT LEVEL 4 [facility] [id number] [facility] 2021-12-04 00:00:00 2021-12-04 00:00:00 Refill Carmen [facility] 1.2.840.114 350.1.13.10 4.2.7.2.686 [id number] [facility] 2021-11-30 08:40:00 2021-11-30 08:40:00 Outpatient R CARMEN AKHTAR [facility] [id number] [facility] 2021-11-30 08:40:00 2021-11-30 08:40:00 Outpatient R CARMEN AKHTAR [facility] [id number] [facility] 2021-09-14 00:00:00 2021-09-14 00:00:00 [facility] 1.2.840.114 350.1.13.10 4.2.7.2.686 [id number] [facility] 2021-09-10 08:32:00 2021-09-10 08:32:00 Outpatient DMG DMG [id number] [facility] 2021-09-08 00:00:00 2021-09-08 00:00:00 Telephone Carmen [facility]ht[facility] 1.2.840.114 350.1.13.10 4.2.7.2.686 [id number] [facility] 2021-08-18 13:40:00 2021-08-18 13:40:00 Outpatient R REENA ASTORGA [facility] [id number] [facility] 2021-08-18 13:40:00 2021-08-18 13:40:00 Outpatient R REENA ASTORGA [facility] [id number] [facility] 2021-08-02 11:05:37 2021-08-02 12:30:39 Office Visit Carmen Akhtar Thierry [facility] 1.2.840.114 350.1.13.10 4.2.7.2.686 [id number] [facility] 2021-08-02 11:00:00 2021-08-02 12:30:39 Outpatient R CARMEN AKHTAR [facility] [id number] [facility] 2021-07-22 00:00:00 2021-07-22 00:00:00 [facility] 1.2.840.114 350.1.13.10 4.2.7.2.686 [id number] [facility] 2021-07-13 00:00:00 2021-07-13 00:00:00 [facility] 1.2.840.114 350.1.13.10 4.2.7.2.686 [id number] [facility] 2021-07-11 00:00:00 2021-07-11 00:00:00 Refill [facility] 1.2.840.114 350.1.13.10 4.2.7.2.686 [id number] [facility] 2021-07-07 16:24:40 2021-07-07 16:39:51 Urgent Care Enoc Diamond, [facility] 1.2.840.114 350.1.13.10 4.2.7.2.686 [id number] [facility] 2021-07-07 16:20:00 2021-07-07 16:20:00 Outpatient Carson HEDRICK TERE [facility] [id number] [facility] 2021-07-07 00:00:00 2021-07-07 00:00:00 Refill Carmen Akhtar [facility] 1.2.840.114 350.1.13.10 4.2.7.2.686 [id number] [facility] 2021-07-02 12:01:00 2021-07-02 12:01:00 [place] [id number] [place] [address] [facility] 2021-07-02 00:00:00 2021-07-02 00:00:00 Telephone Carmen Akhtar [facility] 1.2.840.114 350.1.13.10 4.2.7.2.686 [id number] [facility] 2021-06-28 00:00:00 2021-06-28 00:00:00 Telephone Carmen Akhtar [facility] 1.2.840.114 350.1.13.10 4.2.7.2.686 [id number] [facility] 2021-06-25 00:00:00 2021-06-25 00:00:00 Telephone Carmen Akhtar [facility] 1.2.840.114 350.1.13.10 4.2.7.2.686 [id number] [facility] 2021-06-09 14:20:00 2021-06-09 14:20:00 Outpatient R POSADAS, RUSLAN [facility] [id number] [facility] 2021-06-03 19:30:00 2021-06-03 19:30:00 Outpatient R WILLIAM HERMAN STRAHIL [facility] [id number] [facility] 2021-06-01 15:30:00 2021-06-01 15:30:00 Outpatient R [facility] [id number] [facility] 2021-05-06 10:57:09 2021-05-06 13:00:43 Office Visit Carmen Akhtar [facility] 1.2.840.114 350.1.13.10 4.2.7.2.686 [id number] [facility] 2021-05-06 10:40:00 2021-05-06 10:40:00 Outpatient R CARMEN AKHTAR [facility] [id number] [facility] 2021-04-20 15:00:00 2021-04-20 15:00:00 Outpatient R BENNETT POOLE [facility] [id number] [facility] 2021-04-09 08:20:00 2021-04-09 08:20:00 Outpatient R CARMEN AKHTAR [facility] [id number] [facility] 2021-03-15 15:40:00 2021-03-15 15:40:00 Outpatient R BENNETT POOLE [facility] [id number] [facility] 2021-03-12 19:30:00 2021-03-12 19:30:00 Outpatient R [facility] [id number] [facility] 2021-03-04 09:00:00 2021-03-04 09:00:00 Outpatient TON HENDRICKS [facility] [id number] [facility] 2020-12-06 11:40:00 2020-12-06 11:40:00 Outpatient [facility] [id number] [facility] 2020-11-08 11:05:00 2020-11-08 11:05:00 Outpatient Carson POLOLUCÍA SHELBY [facility] [id number] [facility] Results Test Description Test Time Test Comments Results Result Co mments Source HEMOGLOBIN [id number] 00:00:00* Test Item Value Reference Range Interpretation Comme nts A1C (test code = 4548-4) 8.2 HEMOGLOBIN [id number] 00:00:00* Test Item Value Reference Range Interpretation Comme nts A1C (test code = 4548-4) 8.7 Lipid Panel w/ Chol/HDL [id number] 00:00:00* Test Item Value Reference Range Interpretation Comme nts Cholesterol, Total (test code = 2093-3) 143 mg/dL See_Comment [Automated message] The system which generated this result transmitted reference range: 100-199 mg/dL. The reference range was not used to interpret this result as normal/abnormal. Triglycerides (test code = 2571-8) 152 mg/dL See_Comment H [Automated [employer]] The system which generated this result transmitted reference range: 0-149 mg/dL. The reference range was not used to interpret this result as normal/abnormal. HDL Cholesterol (test code = 2085-9) 32 mg/dL See_Comment L [Automated [employer]] The system which generated this result transmitted reference range: >39 mg/dL. The reference range was not used to interpret this result as normal/abnormal. T. Chol/HDL Ratio (test code = 9830-1) 4.5 ratio See_Comment [[employer]] The system which generated this result transmitted reference range: 0.0-5.0 ratio. The reference range was not used to interpret this result as normal/abnormal. UA/M w/rflx Culture, [id number] 00:00:00* Test Item Value Reference Range Interpretation Comme nts Specific [place] (test code = 2965-2) 1.020 1.005-1.030 pH (test code = 5803-2) 5.5 5.0-7.5 Urine-Color (test code = 5778-6) Yellow Yellow Appearance (test code = 5767-9) Clear Clear WBC Esterase (test code = 5799-2) Negative Negative Protein (test code = 75723-4) 4+ Negative/Trace A Glucose (test code = 2349-9) Trace Negative A Ketones (test code = 2514-8) Trace Negative A Occult Blood (test code = 5794-3) Negative Negative Bilirubin (test code = 5770-3) Negative Negative Urobilinogen,Semi-Qn (test code = 82209-9) 1.0 mg/dL See_Comment [Automated message] The system which generated this result transmitted reference range: 0.2-1.0 mg/dL. The reference range was not used to interpret this result as normal/abnormal. Nitrite, Urine (test code = 5802-4) Negative Negative Microscopic Examination (test code = 83648-9) See below: Urinalysis Reflex (test code = UNLOINC) Microalbumin/Creat Ratio, Random [id number] 00:00:00* Test Item Value Reference Range Interpretation Comme [facility] Creatinine, Urine (test code = 2161-8) 147.5 mg/dL Not Estab. mg/dL Albumin, Urine (test code = 41020-4) 4494.6 ug/mL Not Estab. ug/mL Alb/Creat Ratio (test code = 55375-9) 3047 mg/g creat See_Comment H [Automated [employer]] The system which generated this result transmitted reference range: 0-29 mg/g creat. The reference range was not used to interpret this result as normal/abnormal. Hemoglobin [id number] 00:00:00* Test Item Value Reference Range Interpretation Comme [facility] Hemoglobin A1c (test code = 4548-4) 9.1 % See_Comment H [Automated [employer]] The system which generated this result transmitted reference range: 4.8-5.6 %. The reference range was not used to interpret this result as normal/abnormal. Comp. Metabolic Panel (14) (CMP)2022-02-16 00:00:00* Test Item Value Reference Range Interpretation Comme nts Glucose (test code = 2345-7) 223 mg/dL See_Comment H [Automated messa ge] The system which generated this result transmitted reference range: 65-99 mg/dL. The reference range was not used to interpret this result as normal/abnormal. BUN (test code = 3094-0) 35 mg/dL See_Comment H [Automated messa ge] The system which generated this result transmitted reference range: 6-24 mg/dL. The reference range was not used to interpret this result as normal/abnormal. Creatinine (test code = 2160-0) 1.90 mg/dL See_Comment H [Automated messa ge] The system which generated this result transmitted reference range: 0.76-1.27 mg/dL. The reference range was not used to interpret this result as normal/abnormal. BUN/Creatinine Ratio (test code = 3097-3) 18 9-20 Sodium (test code = 2951-2) 139 mmol/L See_Comment [Automated messa ge] The system which generated this result transmitted reference range: 134-144 mmol/L. The reference range was not used to interpret this result as normal/abnormal. Potassium (test code = 2823-3) 4.8 mmol/L See_Comment [Automated messa ge] The system which generated this result transmitted reference range: 3.5-5.2 mmol/L. The reference range was not used to interpret this result as normal/abnormal. Chloride (test code = 2075-0) 100 mmol/L See_Comment [Automated messa ge] The system which generated this result transmitted reference range: 96-106 mmol/L. The reference range was not used to interpret this result as normal/abnormal. Carbon Dioxide, Total (test code = 2028-9) 23 mmol/L See_Comment [Automated message] The system which generated this result transmitted reference range: 20-29 mmol/L. The reference range was not used to interpret this result as normal/abnormal. Calcium (test code = 36511-8) 9.3 mg/dL See_Comment [Automated messa ge] The system which generated this result transmitted reference range: 8.7-10.2 mg/dL. The reference range was not used to interpret this result as normal/abnormal. Protein, Total (test code = 2885-2) 6.7 g/dL See_Comment [Automated messa ge] The system which generated this result transmitted reference range: 6.0-8.5 g/dL. The reference range was not used to interpret this result as normal/abnormal. Albumin (test code = 1751-7) 3.7 g/dL See_Comment L [Automated messa ge] The system which generated this result transmitted reference range: 3.8-4.9 g/dL. The reference range was not used to interpret this result as normal/abnormal. Globulin, Total (test code = 52260-8) 3.0 g/dL See_Comment [Automated messa ge] The system which generated this result transmitted reference range: 1.5-4.5 g/dL. The reference range was not used to interpret this result as normal/abnormal. A/G Ratio (test code = 1759-0) 1.2 1.2-2.2 Bilirubin, Total (test code = 1975-2) 0.2 mg/dL See_Comment [Automated messa ge] The system which generated this result transmitted reference range: 0.0-1.2 mg/dL. The reference range was not used to interpret this result as normal/abnormal. Alkaline Phosphatase (test code = 6768-6) 68 IU/L See_Comment [Automated message] The system which generated this result transmitted reference range: 44-121 IU/L. The reference range was not used to interpret this result as normal/abnormal. AST (SGOT) (test code = 1920-8) 18 IU/L See_Comment [Automated messa ge] The system which generated this result transmitted reference range: 0-40 IU/L. The reference range was not used to interpret this result as normal/abnormal. ALT (SGPT) (test code = 1742-6) 21 IU/L See_Comment [Automated messa ge] The system which generated this result transmitted reference range: 0-44 IU/L. The reference range was not used to interpret this result as normal/abnormal. Uric Acid, [id number] 00:00:00* Test Item Value Reference Range Interpretation Comme nts Uric Acid (test code = 3084-1) 6.8 mg/dL See_Comment [Automated messa ge] The system which generated this result transmitted reference range: 3.8-8.4 mg/dL. The reference range was not used to interpret this result as normal/abnormal. CBC With Differential/[id number] 00:00:00* Test Item Value Reference Range Interpretation Comme nts WBC (test code = 6690-2) 6.8 x10E3/uL See_Comment [Automated messa ge] The system which generated this result transmitted reference range: 3.4-10.8 x10E3/uL. The reference range was not used to interpret this result as normal/abnormal. RBC (test code = 789-8) 4.69 x10E6/uL See_Comment [Automated messa ge] The system which generated this result transmitted reference range: 4.14-5.80 x10E6/uL. The reference range was not used to interpret this result as normal/abnormal. Hemoglobin (test code = 718-7) 12.3 g/dL See_Comment L [Automated messa ge] The system which generated this result transmitted reference range: 13.0-17.7 g/dL. The reference range was not used to interpret this result as normal/abnormal. Hematocrit (test code = 4544-3) 38.7 % See_Comment [Automated messa ge] The system which generated this result transmitted reference range: 37.5-51.0 %. The reference range was not used to interpret this result as normal/abnormal. MCV (test code = 787-2) 83 fL See_Comment [Automated messa ge] The system which generated this result transmitted reference range: 79-97 fL. The reference range was not used to interpret this result as normal/abnormal. MCH (test code = 785-6) 26.2 pg See_Comment L [Automated messa ge] The system which generated this result transmitted reference range: 26.6-33.0 pg. The reference range was not used to interpret this result as normal/abnormal. MCHC (test code = 786-4) 31.8 g/dL See_Comment [Automated messa ge] The system which generated this result transmitted reference range: 31.5-35.7 g/dL. The reference range was not used to interpret this result as normal/abnormal. RDW (test code = 788-0) 12.6 % See_Comment [Automated messa ge] The system which generated this result transmitted reference range: 11.6-15.4 %. The reference range was not used to interpret this result as normal/abnormal. Platelets (test code = 777-3) 254 x10E3/uL See_Comment [Automated messa ge] The system which generated this result transmitted reference range: 150-450 x10E3/uL. The reference range was not used to interpret this result as normal/abnormal. Neutrophils (test code = 770-8) 60 % Not Estab. % Lymphs (test code = 736-9) 29 % Not Estab. % Monocytes (test code = 5905-5) 6 % Not Estab. % Eos (test code = 713-8) 4 % Not Estab. % Basos (test code = 706-2) 1 % Not Estab. % Immature Cells (test code = UNLOINC) Neutrophils (Absolute) (test code = 751-8) 4.0 x10E3/uL See_Comment [Automated messa ge] The system which generated this result transmitted reference range: 1.4-7.0 x10E3/uL. The reference range was not used to interpret this result as normal/abnormal. Lymphs (Absolute) (test code = 731-0) 1.9 x10E3/uL See_Comment [Automated m essage] The system which generated this result transmitted reference range: 0.7-3.1 x10E3/uL. The reference range was not used to interpret this result as normal/abnormal. Monocytes(Absolute) (test code = 742-7) 0.4 x10E3/uL See_Comment [Automated m essage] The system which generated this result transmitted reference range: 0.1-0.9 x10E3/uL. The reference range was not used to interpret this result as normal/abnormal. Eos (Absolute) (test code = 711-2) 0.3 x10E3/uL See_Comment [Automated messa ge] The system which generated this result transmitted reference range: 0.0-0.4 x10E3/uL. The reference range was not used to interpret this result as normal/abnormal. Baso (Absolute) (test code = 704-7) 0.1 x10E3/uL See_Comment [Automated messa ge] The system which generated this result transmitted reference range: 0.0-0.2 x10E3/uL. The reference range was not used to interpret this result as normal/abnormal. Immature Granulocytes (test code = 75542-3) 0 % Not Estab. % Immature Grans (Abs) (test code = 68949-3) 0.0 x10E3/uL See_Comment [Automated message] The system which generated this result transmitted reference range: 0.0-0.1 x10E3/uL. The reference range was not used to interpret this result as normal/abnormal. NRBC (test code = 94650-4) Hematology Comments: (test code = 88885-7) Vitamin D, 79-[id number] 00:00:00* Test Item Value Reference Range Interpretation Comme [facility] Vitamin D, 25-Hydroxy (test code = 1989-3) 17.9 ng/mL See_Comment L [Automated [employer]] The system which generated this result transmitted reference range: 30.0-100.0 ng/mL. The reference range was not used to interpret this result as normal/abnormal. TSH reflex to [id number] 00:00:00* Test Item Value Reference Range Interpretation Comme nts TSH (test code = 24014-7) 2.610 uIU/mL See_Comment [Automated [employer]] The system which generated this result transmitted reference range: 0.450-4.500 uIU/mL. The reference range was not used to interpret this result as normal/abnormal. COMP. METABOLIC PANEL (61069)2022-01-06 04:54:06* Test Item Value Reference Range Interpretation Comme nts NA (test code = 8690381423) 138 mmol/L 135-145 K (test code = 5768226979) 4.5 mmol/L 3.5-5.0 CL (test code = 1185058011) 103 mmol/L 98-108 CO2 TOTAL (test code = 4692291381) 26 mmol/L 23-31 AGAP (test code = 1011082613) 2-16 BUN (test code = 5052595610) 33 mg/dL 7-23 H GLUCOSE (test code = 4485545243) 236 mg/dL 70-110 H CREATININE (test code = 8540661060) 1.95 mg/dL 0.60-1.25 H TOTAL BILI (test code = 3517272794) 0.4 mg/dL 0.1-1.1 CALCIUM (test code = 5457052817) 8.7 mg/dL 8.6-10.6 T PROTEIN (test code = 2291843993) 6.9 g/dL 6.3-8.2 ALBUMIN (test code = 8469731360) 3.7 g/dL 3.5-5.0 ALK PHOS (test code = 1985461030) 61 U/L 34-122 ALTv (test code = 1742-6) 28 U/L 5-50 AST(SGOT) (test code = 5986541790) 30 U/L 13-40 eGFR (test code = 9473301386) mL/min/1.73m2 ALESIA (test code = ALESIA) Association of Glomerular Filtration Rate (GFR) and Staging of Kidney Disease* + --+ --+ ------+| GFR (mL/min/1.73 m2) ?| With Kidney Damage ?| ?Without Kidney Damage+ --------+ --------+ +| ?>90 ?| ?Stage one ?| ? Normal ?+ ---+ ---+ -------+| ?60-89 ?| ?Stage two ?| ? Decreased GFR ? + --+ --+ ------+| ?30-59 ?| ?Stage three ?| ? Stage three ? + --+ --+ ------+| ?15-29 ?| ?Stage four ? | ? Stage four ?+ ---+ ---+ -------+| ?<15 (or dialysis) ? ?| ?Stage five ? | ? Stage five ?+ ---+ ---+ -------+ *Each stage assumes the associated GFR level has been in effect for at least three months. ?Stages 1 to 5, with or without kidney disease, indicate chronic kidney disease. Notes: Determination of stages one and two (with eGFR >59mL/min/1.73 m2) requires estimation of kidney damage for at least three months as defined by structural or functional abnormalities of the kidney, manifested by either:Pathological abnormalities or Markers of kidney damage (including abnormalities in the composition of the blood or urine or abnormalities in imaging tests). Lab Interpretation (test code = 24855-4) Abnormal [facility] WITH [id number] 04:42:08* Test Item Value Reference Range Interpretation Comme nts WBC (test code = 6690-2) See_Comment [Automated messa ge] The system which generated this result transmitted reference range: 4.20 - 10.70 10*3/?L. The reference range was not used to interpret this result as normal/abnormal. RBC (test code = 789-8) See_Comment [Automated messa ge] The system which generated this result transmitted reference range: 4.26 - 5.52 10*6/?L. The reference range was not used to interpret this result as normal/abnormal. HGB (test code = 718-7) 12.2 g/dL 12.2-16.4 HCT (test code = 4544-3) 37.2 % 38.4-49.3 L MCV (test code = 787-2) 81.9 fL 81.7-95.6 MCH (test code = 785-6) 26.9 pg 26.1-32.7 MCHC (test code = 786-4) 32.8 g/dL 31.2-35.0 RDW-SD (test code = 47926-3) 37.2 fL 38.5-51.6 L RDW-CV (test code = 788-0) 12.4 % 12.1-15.4 PLT (test code = 777-3) See_Comment [Automated messa ge] The system which generated this result transmitted reference range: 150 - 328 10*3/?L. The reference range was not used to interpret this result as normal/abnormal. MPV (test code = 65450-6) 10.3 fL 9.8-13.0 NRBC/100 WBC (test code = 2949238495) See_Comment [Automated [employer]] The system which generated this result transmitted reference range: 0.0 - 10.0 /100 WBCs. The reference range was not used to interpret this result as normal/abnormal. NRBC x10^3 (test code = 6401775293) <0.01 See_Comment [Automated messa ge] The system which generated this result transmitted reference range: 10*3/?L. The reference range was not used to interpret this result as normal/abnormal. GRAN MAT (NEUT) % (test code = 770-8) 64.6 % IMM GRAN % (test code = 6595248249) 0.30 % LYMPH % (test code = 736-9) 22.8 % MONO % (test code = 5905-5) 8.0 % EOS % (test code = 713-8) 3.6 % BASO % (test code = 706-2) 0.7 % GRAN MAT x10^3(ANC) (test code = 1380049071) 4.82 10*3/uL 1.99-6.95 IMM GRAN x10^3 (test code = 8258085076) <0.03 0.00-0.06 LYMPH x10^3 (test code = 731-0) 1.70 10*3/uL 1.09-3.23 MONO x10^3 (test code = 742-7) 0.60 10*3/uL 0.36-1.02 EOS x10^3 (test code = 711-2) 0.27 10*3/uL 0.06-0.53 BASO x10^3 (test code = 704-7) 0.05 10*3/uL 0.01-0.09 Lab Interpretation (test code = 55561-0) Abnormal [facility]
--- NOTE | 2023-09-11 12:13 | ER ---
Nurse's Notes [facility] Name: Amor Ramírez Jr Age: 53 yrs Sex: Male : 1970 Arrival Date: 09/11/2023 Time: 11:55 Bed IW10 Private MD: Michael Castelan H Diagnosis: Pneumonia due to other specified bacteria-RIGHT MID LUNG, 7 CM ;Essential (primary) hypertension;Type 1 diabetes mellitus with hyperglycemia;Acute kidney failure, unspecified;Cocaine abuse Presentation: 09/11 12:23 Chief complaint: Patient states: right sided chest pain and reported BP "211/85". aa5 Coronavirus screen: At this time, the client does not indicate any symptoms associated with coronavirus-19. Ebola Screen: Patient denies travel to an Ebola-affected area in the 21 days before illness onset. Initial Sepsis Screen: Does the patient meet any 2 criteria? HR > 90 bpm. Does the patient have a suspected source of infection? No. Patient's initial sepsis screen is negative. Risk Assessment: Do you want to hurt yourself or someone else? Patient reports no desire to harm self or others. Onset of symptoms was September 11, 2023. 12:23 Acuity: YADIEL 2 aa5 12:23 Method Of Arrival: Wheelchair aa5 Triage Assessment: 14:18 General: Appears in no apparent distress. comfortable, Behavior is calm, cooperative. cm10 Pain: Complains of pain in chest. Neuro: No deficits noted. Level of Consciousness is awake, alert, obeys commands, Oriented to person, place, time, situation. Cardiovascular: Patient's skin is warm and dry. Rhythm is sinus tachycardia Chest pain. Respiratory: No deficits noted. Airway is patent Respiratory effort is even, unlabored, Respiratory pattern is regular, symmetrical. GI: No deficits noted. No signs and/or symptoms were reported involving the gastrointestinal system. : No deficits noted. No signs and/or symptoms were reported regarding the genitourinary system. Derm: No deficits noted. No signs and/or symptoms reported regarding the dermatologic system. Skin is intact, Skin is pink, warm \\T\\ dry. Musculoskeletal: No deficits noted. Range of motion: intact in all extremities. Historical: - Allergies: 12:25 NKDA; aa5 - PMHx: 12:25 Diabetes - IDDM; Hypertension; Hypercholesterolemia; TIA; aa5 - Immunization history:: Adult Immunizations unknown. - Social history:: Smoking status: Patient reports the use of cigarette tobacco products. - Family history:: not pertinent. Screenin:19 [facility] ED Fall Risk Assessment (Adult) History of falling in the last 3 months, cm10 including since admission No falls in past 3 months (0 pts) Confusion or Disorientation No (0 pts) Intoxicated or Sedated No (0 pts) Impaired Gait No (0 pts) Mobility Assist Device Used No (0 pt) Altered Elimination No (0 pt) Score/Fall Risk Level 0 - 2 = Low Risk Oriented to surroundings, Maintained a safe environment, Provided non-skid footwear. Abuse screen: Denies threats or abuse. Denies injuries from another. Nutritional screening: No deficits noted. Tuberculosis screening: No symptoms or risk factors identified. Assessment: 14:19 Pain: Pain does not radiate. Pain began suddenly. cm10 15:00 Reassessment: Patient appears in no apparent distress at this time. Patient and/or cm10 family updated on plan of care and expected duration. Pain level reassessed. Patient is alert, oriented x 3, equal unlabored respirations, skin warm/dry/pink. 15:30 Reassessment: Pt yelling at staff and stating that he is hungry. Pt made aware that the 10 cafeteria was closed and pt's stated that she would go get him food. 16:00 Reassessment: Patient appears in no apparent distress at this time. Patient and/or cm10 family updated on plan of care and expected duration. Pain level reassessed. Patient is alert, oriented x 3, equal unlabored respirations, skin warm/dry/pink. 16:00 Reassessment: Pt provided with sandwich and water at this time and pt reports that his 10 is going to get him food. 17:00 Reassessment: Patient appears in no apparent distress at this time. Patient and/or cm10 family updated on plan of care and expected duration. Pain level reassessed. Patient is alert, oriented x 3, equal unlabored respirations, skin warm/dry/pink. 18:00 Reassessment: Patient appears in no apparent distress at this time. Patient and/or cm10 family updated on plan of care and expected duration. Pain level reassessed. Patient is alert, oriented x 3, equal unlabored respirations, skin warm/dry/pink. 20:17 Reassessment: Pt resting comfortably, at bedside. Pt removed all monitoring cm10 equipment. 22:06 Reassessment: Upon patient being made aware that he would have to stay in the ED due to cm10 no bed being assigned, pt and pt's became upset and stated that they wanted to speak to the warehouse production worker. payroll supervisor [place] notified. While awaiting for warehouse production worker to arrive to the ED, pt states that he wants to leave AMA and does not want to stay because no bed was available. This RN contacted Dr. Greco and per DR. Greco, pt can leave AMA. AMA paperwork signed and pt made aware of the risks of leaving AMA and not staying to complete treatment. Pt leaving ambulatory with steady gait accompanied by . IV DC'd. Vital Signs: 12:23 BP 207 / 125; Pulse 123; Resp 20 S; Temp 98.3(O); Pulse Ox 100% on R/A; Weight 72.57 kg aa5 (R); Height 5 ft. 8 in. (R); 13:42 BP 183 / 98; Pulse 117; Resp 18; Pulse Ox 100% ; cm10 13:46 BP 175 / 96; Pulse 102; Resp 16; Pulse Ox 99% ; cm10 14:00 BP 177 / 101; Pulse 105; Resp 18; Pulse Ox 97% on R/A; cm10 15:00 BP 147 / 86; Pulse 105; Resp 16; Pulse Ox 100% on R/A; cm10 15:30 BP 132 / 81; Pulse 96; Resp 18; Pulse Ox 100% ; cm10 16:15 BP 154 / 95; Pulse 103; Resp 18; Pulse Ox 100% on R/A; cm10 16:30 BP 140 / 88; Pulse 103; Resp 18; Pulse Ox 100% on R/A; cm10 17:00 BP 135 / 89; Pulse 104; Resp 18; Pulse Ox 100% ; cm10 17:30 BP 156 / 97; Pulse 101; Resp 18; Pulse Ox 100% on R/A; cm10 18:00 BP 138 / 88; Pulse 96; Resp 18; Pulse Ox 100% ; cm10 18:30 BP 153 / 94; Pulse 98; Resp 18; Pulse Ox 100% on R/A; cm10 12:23 Body Mass Index 24.33 (72.57 kg, 172.72 cm) aa5 ED Course: 11:56 Patient arrived in ED. im 11:57 Michael Castelan MD is Attending Physician. micky 12:00 Patient's name was called from ER lobby. No response. aa5 12:17 Michael Castelan MD is Private Physician. rn 12:17 Michael Castelan MD is Attending Physician. micky 12:24 Triage completed. aa5 12:40 XRAY Chest (1 view) In Process Unspecified. EDMS 12:[address], JOAN is Primary Nurse. cm10 14:03 Caryl Perez MD is Hospitalizing Provider. micky 14:19 Patient has correct armband on for positive identification. Bed in low position. Call cm10 light in reach. Side rails up X2. Provided Education on: ER process and procedures. . Client placed on continuous cardiac and pulse oximetry monitoring. NIBP monitoring applied. 14:19 No provider procedures requiring assistance completed. Inserted saline lock: 18 gauge cm10 in left antecubital area, using aseptic technique. Patient maintains SpO2 saturation greater than 95% on room air. 14:20 Patient placed in an exam room. cm10 14:26 Chest Abd Pelvis Wo Con In Process Unspecified. EDMS 20:52 Patient admitted, IV remains in place. cm10 Administered Medications: 13:53 Drug: NS 0.9% IV 1000 ml IV at 125 ml/hr continuous Route: IV; Rate: 125 ml/hr; Site: cm10 left antecubital; 20:52 Follow up: IV Status: Infusion continued upon admission cm10 13:53 Drug: morphine IVP or IV 4 mg IVP once over 4 mins Route: IVP; Infused Over: 4 mins; cm10 Site: left antecubital; 14:17 Follow up: Response: No adverse reaction cm10 13:53 Drug: Ondansetron IVP 4 mg IVP once; over 2 minutes Route: IVP; Site: left antecubital; cm10 14:17 Follow up: Response: No adverse reaction cm10 14:00 Drug: Aspirin PO Chewable Tablet 324 mg PO once; 81 mg tablets x 4 Route: PO; cm10 14:18 Follow up: Response: No adverse reaction cm10 14:02 Drug: Labetalol IV 20 mg IV at per protocol once over 2 mins {Note: 10.} Route: IV; cm10 Rate: per protocol; Infused Over: 2 mins; Site: left antecubital; 14:18 Follow up: Response: Blood pressure is lowered; IV Status: Completed infusion; IV cm10 Intake: 2ml 14:14 CANCELLED (Duplicate Order): [id number] mg 150 ml IVPB once over 90 mins micky 14:36 Drug: Labetalol PO 100 mg PO once Route: PO; cm10 18:53 Follow up: Response: No adverse reaction; Blood pressure is lowered cm10 14:36 Drug: levofloxacin IVPB 500 mg 100 ml IVPB once over 60 mins Volume: 100 ml; Route: cm10 IVPB; Infused Over: 60 mins; Site: left antecubital; 15:49 Follow up: Response: No adverse reaction; IV Status: Completed infusion; IV Intake: cm10 100ml 14:41 CANCELLED (Physician Discretion): [id number] mg IV at per protocol once over 2 mins cm10 14:41 CANCELLED (Duplicate Order): [id number] mg PO once cm10 Medication: 14:20 VIS not applicable for this client. cm10 Intake: 14:18 IV: 2ml; Total: 2ml. cm10 15:49 IV: 100ml; Total: 102ml. cm10 Outcome: 14:07 Decision to Hospitalize by Provider. micky 20:51 Admitted to ER Hold. Please see [facility] for further documentation. cm10 20:51 Condition: good 20:51 Instructed on the need for admit, See charting in [facility]. 22:22 Patient left the ED. cm10 Signatures: Dispatcher [employer] EDMichael Cohen MD MD cha Nieto, Roman, MD MD rn Calderon, Audri, RN RN aa5 Evelyn Hernandez RN RN ll1 Marysol Vazquez Clarissa, RN RN cm10 Corrections: (The following items were deleted from the chart) 12:21 12:12 Patient left the ED. ll1 ll1 22:11 20:51 Instructed on the need for admit, cm10 cm10
--- NOTE | 2023-09-11 12:52 | RAD REPORT ---
EXAM DESCRIPTION: Tania Single View09/11/2023 12:39 pm CLINICAL HISTORY: Chest pain COMPARISON: 2019 FINDINGS: 7 centimeter opacity mid right lateral lung. Left lung appears clear. Heart is normal size IMPRESSION: 7 centimeter opacity right lung probably pneumonia. This should be followed until it is clear to help exclude a post obstructive process/underlying mass
[2023-09-11] MEDS ORDERED: ASPIRIN 81 MG CHEWABLE TABLET ONE (13:35)
[2023-09-11] MEDS ORDERED: ONDANSETRON 4 MG/2 ML VIAL ONE (13:35)
[2023-09-11] MEDS ORDERED: MORPHINE 4 MG/ML SYR ONE (13:35)
[2023-09-11] MEDS ORDERED: NA CHLORIDE 0.9% 1,000 ML ONE (13:36)
[2023-09-11] MEDS ORDERED: LABETALOL 20 MG/4ML SYRINGE IV ONE (13:36)
[2023-09-11] MEDS ORDERED: Levofloxacin 750mg IV 0 MG/0 ML BAG IV ONE (13:36)
[2023-09-11 13:41] LABS: Absolute Lymphocytes (CBC) 0.5 K/uL (0.7-4.9); Hematocrit 31.8 % (39.6-49.0); Lymphocytes % 5.2 % (15.3-44.8); MCV 81.9 fL (80-100); MPV 8.6 fL (7.6-11.3); Platelets 174 thou/uL (152-406); RBC Red Blood Cell Count 3.88 M/uL (4.33-5.43)
[2023-09-11 13:43] LABS: Specific Gravity 1.011 (1.005-1.030); Urine Bacteria None Seen /HPF (<20); Urine Bilirubin NEGATIVE (Negative); Urine Blood 1+ (Negative); Urine Clarity Clear (Clear); Urine Color Colorless (Yellow); Urine Glucose 2+ (Negative); Urine Protein 3+ (Negative); Urine RBC <5 /HPF (None Seen); Urine Urobilinogen Normal (Normal)
[2023-09-11 13:47] LABS: Protime INR 1.07
[2023-09-11 14:06] LABS: White Blood Cell Scan OK (OK)
[2023-09-11 14:07] LABS: Blood Morphology Comment NOT SEEN (NOT SEEN); Platelet Estimate ADEQ
--- NOTE | 2023-09-11 14:07 | EDPHYS ---
Physician Documentation [facility] Name: Amor Ramírez Jr Age: 53 yrs Sex: Male : 1970 Arrival Date: 09/11/2023 Time: 11:55 Bed IW10 Private MD: Michael Castelan H ED Physician Michael Castelan HPI: 09/11 12:55 This 53 yrs old Male presents to ER via Wheelchair with complaints of Chest micky Pain, High Blood Pressure. 12:55 The patient or guardian reports chest pain that is located primarily in the substernal micky area, anterior chest wall, bilaterally. Onset: this morning. The pain does not radiate. Associated signs and symptoms: Pertinent positives: shortness of breath. The chest pain is described as a pressure. Duration: The patient or guardian reports a single episode, that is still ongoing, but improving. Severity of pain: At its worst the pain was moderate in the emergency department the pain has improved mildly. The patient has experienced similar episodes in the past, several times. Historical: - Allergies: 12:25 NKDA; aa5 - PMHx: 12:25 Diabetes - IDDM; Hypertension; Hypercholesterolemia; TIA; aa5 - Immunization history:: Adult Immunizations unknown. - Social history:: Smoking status: Patient reports the use of cigarette tobacco products. - Family history:: not pertinent. ROS: 12:55 Constitutional: Negative for fever, chills, and weight loss, Eyes: Negative for injury, micky pain, redness, and discharge, ENT: Negative for injury, pain, and discharge, Neck: Negative for injury, pain, and swelling, Respiratory: Negative for shortness of breath, cough, wheezing, and pleuritic chest pain, Abdomen/GI: Negative for abdominal pain, nausea, vomiting, diarrhea, and constipation, Back: Negative for injury and pain, : Negative for injury, bleeding, discharge, and swelling, MS/Extremity: Negative for injury and deformity, Skin: Negative for injury, rash, and discoloration, Neuro: Negative for headache, weakness, numbness, tingling, and seizure, Psych: Negative for depression, anxiety, suicide ideation, homicidal ideation, and hallucinations, Allergy/Immunology: Negative for hives, rash, and allergies, Endocrine: Negative for neck swelling, polydipsia, polyuria, polyphagia, and marked weight changes, Hematologic/Lymphatic: Negative for swollen nodes, abnormal bleeding, and unusual bruising, 12:55 Cardiovascular: Positive for chest pain, Exam: 12:55 Constitutional: This is a well developed, well nourished patient who is awake, alert, micky and in no acute distress. Head/Face: Normocephalic, atraumatic. Eyes: Pupils equal round and reactive to light, extra-ocular motions intact. Lids and lashes normal. Conjunctiva and sclera are non-icteric and not injected. Cornea within normal limits. Periorbital areas with no swelling, redness, or edema. ENT: Nares patent. No nasal discharge, no septal abnormalities noted. Tympanic membranes are normal and external auditory canals are clear. Oropharynx with no redness, swelling, or masses, exudates, or evidence of obstruction, uvula midline. Mucous membranes moist. Neck: Trachea midline, no thyromegaly or masses palpated, and no cervical lymphadenopathy. Supple, full range of motion without nuchal rigidity, or vertebral point tenderness. No Meningismus. Chest/axilla: Normal chest wall appearance and motion. Nontender with no deformity. No lesions are appreciated. Cardiovascular: Regular rate and rhythm with a normal S1 and S2. No gallops, murmurs, or rubs. Normal PMI, no JVD. No pulse deficits. Respiratory: Lungs have equal breath sounds bilaterally, clear to auscultation and percussion. No rales, rhonchi or wheezes noted. No increased work of breathing, no retractions or nasal flaring. Abdomen/GI: Soft, non-tender, with normal bowel sounds. No distension or tympany. No guarding or rebound. No evidence of tenderness throughout. Back: No spinal tenderness. No costovertebral tenderness. Full range of motion. Male : Normal genitalia with no discharge or lesions. Skin: Warm, dry with normal turgor. Normal color with no rashes, no lesions, and no evidence of cellulitis. MS/ Extremity: Pulses equal, no cyanosis. Neurovascular intact. Full, normal range of motion. Neuro: Awake and alert, GCS 15, oriented to person, place, time, and situation. Cranial nerves II-XII grossly intact. Motor strength 5/5 in all extremities. Sensory grossly intact. Cerebellar exam normal. Normal gait. Psych: Awake, alert, with orientation to person, place and time. Behavior, mood, and affect are within normal limits. 13:28 ECG was reviewed by the Attending Physician. [facility] Vital Signs: 12:23 BP 207 / 125; Pulse 123; Resp 20 S; Temp 98.3(O); Pulse Ox 100% on R/A; Weight 72.57 kg aa5 (R); Height 5 ft. 8 in. (R); 13:42 BP 183 / 98; Pulse 117; Resp 18; Pulse Ox 100% ; cm10 13:46 BP 175 / 96; Pulse 102; Resp 16; Pulse Ox 99% ; cm10 14:00 BP 177 / 101; Pulse 105; Resp 18; Pulse Ox 97% on R/A; cm10 15:00 BP 147 / 86; Pulse 105; Resp 16; Pulse Ox 100% on R/A; cm10 15:30 BP 132 / 81; Pulse 96; Resp 18; Pulse Ox 100% ; cm10 16:15 BP 154 / 95; Pulse 103; Resp 18; Pulse Ox 100% on R/A; cm10 16:30 BP 140 / 88; Pulse 103; Resp 18; Pulse Ox 100% on R/A; cm10 17:00 BP 135 / 89; Pulse 104; Resp 18; Pulse Ox 100% ; cm10 17:30 BP 156 / 97; Pulse 101; Resp 18; Pulse Ox 100% on R/A; cm10 18:00 BP 138 / 88; Pulse 96; Resp 18; Pulse Ox 100% ; cm10 18:30 BP 153 / 94; Pulse 98; Resp 18; Pulse Ox 100% on R/A; cm10 12:23 Body Mass Index 24.33 (72.57 kg, 172.72 cm) aa5 MDM: 11:57 Patient medically screened. micky 12:57 HEART Score: History: Moderately Suspicious (1), Age: > 45 and < 65 years (1), Risk micky Factors: > or = 3 Risk factors for atherosclerotic disease (2), [Hypercholesterolemia] [Hypertension] [DM] [Active Smoker] [+ Family HX]. The patient was given aspirin in the Emergency Department. KIMBERLY Risk Score: 1 - Three or more CAD risk factors, 1- Known CAD, 1 - ASA use in past 7 days. Data reviewed: vital signs, nurses notes, lab test result(s), EKG, radiologic studies, CT scan, plain films. Consideration of Admission/Observation Escalation of care including admission/observation considered. I considered the following discharge prescriptions or medication management in the emergency department Medications were administered in the Emergency Department. See MAR. Independent interpretation of the following test(s) in the Emergency Department EKG: See my EKG interpretation above. Test considered but Not performed: Ultrasound NO 2 D ECHOS. Care significantly affected by the following chronic conditions: Diabetes, Hypertension. Counseling: I had a detailed discussion with the patient and/or guardian regarding the historical points, exam findings, and any diagnostic results supporting the discharge/admit diagnosis, the presence of at least one elevated blood pressure reading (>120/80) during this emergency department visit, lab results, radiology results, the need for further work-up and treatment in the hospital. 09/11 11:58 Order name: Basic Metabolic Panel; Complete Time: 14:13 [facility] 09/11 11:58 Order name: CBC with Diff; Complete Time: 14:13 [facility] 09/11 11:58 Order name: LFT's; Complete Time: 14:13 [facility] 09/11 11:58 Order name: Magnesium; Complete Time: 14:13 [facility] 09/11 11:58 Order name: NT PRO-BNP; Complete Time: 14:13 [facility] 09/11 11:58 Order name: PT-INR; Complete Time: 14:02 [facility] 09/11 11:58 Order name: Troponin HS; Complete Time: 14:13 [facility] 09/11 11:58 Order name: Lipase; Complete Time: 14:13 [facility] 09/11 11:58 Order name: Urinalysis w/ reflexes; Complete Time: 13:45 [facility] 09/11 13:30 Order name: Blood Culture Adult (2) [facility] 09/11 13:30 Order name: Lactate w/ 2H reflex if indic.; Complete Time: 14:23 [facility] 09/11 13:44 Order name: CBC Smear Scan; Complete Time: 14:13 [facility] 09/11 11:58 Order name: XRAY Chest (1 view); Complete Time: 13:28 [facility] 09/11 14:15 Order name: Chest Abd Pelvis Wo Con [facility] 09/11 11:58 Order name: EKG; Complete Time: 11:59 [facility] 09/11 14:28 Order name: CONS Physician Consult [facility] 09/11 11:58 Order name: Cardiac monitoring; Complete Time: 13:09 [facility] 09/11 11:58 Order name: EKG - Nurse/Tech; Complete Time: 13: [facility] 09/11 11:58 Order name: IV Saline Lock; Complete Time: 16:34 [facility] 09/11 11:58 Order name: Labs collected and sent; Complete Time: 16:34 [facility] 09/11 11:58 Order name: O2 Per Protocol; Complete Time: 13: [facility] 09/11 11:58 Order name: O2 Sat Monitoring; Complete Time: : [facility] EC: Rate is 118 beats/min. Rhythm is regular. QRS Lima is Normal. NC interval is normal. [facility] QRS interval is normal. QT interval is normal. No Q waves. T waves are Normal. No ST changes noted. Clinical impression: Sinus tachycardia and No evidence of ischemia. Interpreted by me. Reviewed by me. Administered Medications: 13:53 Drug: NS 0.9% IV 1000 ml IV at 125 ml/hr continuous Route: IV; Rate: 125 ml/hr; Site: cm10 left antecubital; 20:52 Follow up: IV Status: Infusion continued upon admission cm10 13:53 Drug: morphine IVP or IV 4 mg IVP once over 4 mins Route: IVP; Infused Over: 4 mins; cm10 Site: left antecubital; 14:17 Follow up: Response: No adverse reaction cm10 13:53 Drug: Ondansetron IVP 4 mg IVP once; over 2 minutes Route: IVP; Site: left antecubital; cm10 14:17 Follow up: Response: No adverse reaction cm10 14:00 Drug: Aspirin PO Chewable Tablet 324 mg PO once; 81 mg tablets x 4 Route: PO; cm10 14:18 Follow up: Response: No adverse reaction cm10 14:02 Drug: Labetalol IV 20 mg IV at per protocol once over 2 mins {Note: 10.} Route: IV; cm10 Rate: per protocol; Infused Over: 2 mins; Site: left antecubital; 14:18 Follow up: Response: Blood pressure is lowered; IV Status: Completed infusion; IV cm10 Intake: 2ml 14:14 CANCELLED (Duplicate Order): [id number] mg 150 ml IVPB once over 90 mins [facility] 14:36 Drug: Labetalol PO 100 mg PO once Route: PO; cm10 18:53 Follow up: Response: No adverse reaction; Blood pressure is lowered cm10 14:36 Drug: levofloxacin IVPB 500 mg 100 ml IVPB once over 60 mins Volume: 100 ml; Route: cm10 IVPB; Infused Over: 60 mins; Site: left antecubital; 15:49 Follow up: Response: No adverse reaction; IV Status: Completed infusion; IV Intake: cm10 100ml 14:41 CANCELLED (Physician Discretion): [id number] mg IV at per protocol once over 2 mins cm10 14:41 CANCELLED (Duplicate Order): [id number] mg PO once cm10 Disposition Summary: 09/11/23 14:07 Hospitalization Ordered Notes: Hospitalization Status: Inpatient Admission micky Provider: Caryl Perez cha Condition: Fair micky Problem: new micky Symptoms: have improved micky Bed/Room Type: Standard micky Location: [facility] ER HOLD(09/11/23 21:34) cm10 Room Assignment: ERHOLD-(09/11/23 21:34) cm10 Diagnosis - Pneumonia due to other specified bacteria - RIGHT MID LUNG, 7 CM micky - Essential (primary) hypertension micky - Type 1 diabetes mellitus with hyperglycemia micky - Acute kidney failure, unspecified micky - Cocaine abuse micky Forms: - Medication Reconciliation Form micky - SBAR form micky - Leadership Thank You Letter micky Signatures: Dispatcher [employer] EDMichael Cohen MD MD cha Calderon, Audri, RN RN [email or web address] China Rousseau RN Evelyn Malhotra RN RN ll1 Mena Way RN RN cm10 Caryl Perez MD MD ii Corrections: (The following items were deleted from the chart) 12:21 12:12 Before Triage ll1 ll1 12:21 12:12 unknown ll1 ll1 14:14 13:30 levofloxacin IVPB 750 mg 150 ml IVPB once over 90 mins ordered. micky micky 14:15 13:31 Chest For PE Angio+CT.RAD.BRZ ordered. EDMS EDMS 14:26 14:13 Chest Abdomen Pelvis Wo Con+CT.RAD.BRZ ordered. EDMS EDMS 14:41 12:58 Labetalol IV 20 mg IV at per protocol once over 2 mins ordered. micky cm10 14:41 13:47 Losartan PO 100 mg PO once ordered. micky cm10 19:36 14:07 micky cg 21:34 14:07 Telemetry/MedSurg (Inpatient) [facility]10 34 19:36 222 [facility]10
[2023-09-11 14:09] LABS: Albumin 2.9 g/dL (3.4-5.0); Bilirubin Direct 0.1 mg/dL (0-0.2); Bilirubin Indirect, Calculated 0.3 mg/dL (0.2-0.8); Bilirubin Total 0.4 mg/dL (0.2-1.0); Magnesium 1.6 mg/dL (1.6-2.4); Potassium 4.9 mEq/L (3.5-5.1); Protein, Total 7.3 g/dL (6.4-8.2); Troponin High Sensitivity 34.5 pg/mL (<58.9)
[2023-09-11] MEDS ORDERED: LABETALOL HCL 100 MG TAB ONE (14:16)
[2023-09-11] MEDS ORDERED: Levofloxacin500mg IV 500 MG/100 ML BAG IV ONE (14:25)
--- NOTE | 2023-09-11 14:52 | RAD REPORT ---
EXAM DESCRIPTION: CT - Chest Abd Pelvis Wo Con - 09/11/2023 2:24 pm CLINICAL HISTORY: Chest pain COMPARISON: Chest x-ray September 11, 2023 TECHNIQUE: Computed axial tomography of the chest, abdomen and pelvis was obtained. Oral contrast wa s given. IV contrast was not requested. All CT scans are performed using dose optimization technique as appropriate and may include automated exposure control or mA/KV adjustment according to patient size. FINDINGS: The evaluation of mediastinum, dandy, vessels and solid organs is limited secondary to the lack of IV contrast administration 7 centimeter right upper lobe consolidation. Left lung clear No mediastinal or hilar lymphadenopathy is seen. A pleural effusion is not present. A pericardial effusion is not seen. The liver, spleen, pancreas, adrenals and kidneys appear grossly normal There is no evidence of diverticulitis. Normal appendix. Prostate gland mildly to moderately enlarged IMPRESSION: Right upper lobe consolidation consistent with pneumonia. This should be followed until it has cleared to help exclude a post obstructive process
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
[2023-09-11 20:48] VITALS: BMI 24.3
[2023-09-11 21:30] VITALS: BP 155/94
[2023-09-11] MEDS ORDERED: METOPROLOL TARTRATE 5 MG/5 ML INJ IV PRN (21:48)
[2023-09-11] MEDS ORDERED: HEPARIN 5000 UNIT/ML 1 ML VIAL SQ SCH (21:48)
[2023-09-11] MEDS ORDERED: ONDANSETRON 4 MG/2 ML VIAL IV PRN (21:48)
[2023-09-11] MEDS ORDERED: ZOLPIDEM TARTRATE 5 MG TABLET PO PRN (21:48)
[2023-09-11] MEDS ORDERED: INSULIN REGULAR (HUMAN) 100 UNIT/ML SQ SCH (21:48)
[2023-09-11] MEDS ORDERED: ACETAMINOPHEN 325 MG TABLET PO PRN (21:48)
[2023-09-11] MEDS ORDERED: NA CHLORIDE 0.9% 1,000 ML IV SCH (21:48)
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
[2023-09-11] MEDS ORDERED: SODIUM BICARB 325 MG TAB PO SCH (22:30)
[2023-09-11] MEDS ORDERED: NACHLORIDE 0.45% 1,000 ML IV SCH (23:00)
[2023-09-11 23:15] VITALS: TEMP 98.3; O2SAT 100
[2023-09-12] MEDS ORDERED: DRISDOL (VITAMIN D=ERGOCALCIFEROL) 50000 UNIT CAP PO SCH (09:00)
[2023-09-12] MEDS ORDERED: DOCUSATE NA 100 MG CAP PO SCH (09:00)
[2023-09-12] MEDS ORDERED: CEFTRIAXONE 1,000 MG in NA CHLORIDE 0.9% 50 ML IVPB SCH (09:00)
[2023-09-12] MEDS ORDERED: AZITHROMYCIN IV 500 MG in NA CHLORIDE 0.9% 250 ML IVPB SCH (09:00)
[2023-09-12 18:04] LABS: Ferritin 83.9 ng/mL (26-388)
== END 2023-09-11 22:18 | disposition left against medical advice (07) ==
LOC: ER 11:55 → ERHOLD 14:39
PROVIDERS: ADMIT Hospitalist; ATTEND Hospitalist
DX: R07.9 Chest pain, unspecified (principal); J18.9 Pneumonia, unspecified organism; N17.9 Acute kidney failure, unspecified; R06.02 Shortness of breath; I16.0 Hypertensive urgency; I10 Essential (primary) hypertension; R00.0 Tachycardia, unspecified; E78.5 Hyperlipidemia, unspecified; N18.9 Chronic kidney disease, unspecified; E10.65 Type 1 diabetes mellitus with hyperglycemia; D63.8 Anemia in other chronic diseases classified elsewhere; F17.210 Nicotine dependence, cigarettes, uncomplicated; F14.10 Cocaine abuse, uncomplicated; E87.20 Acidosis, unspecified; E10.42 Type 1 diabetes mellitus with diabetic polyneuropathy; Z86.73 Personal history of transient ischemic attack (TIA), and cerebral infarction without residual deficits; Z79.4 Long term (current) use of insulin; Z71.6 Tobacco abuse counseling
CPT/HCPCS: 87040 ×2; 85025; 81001; 80048; 36415; 83735; 85610; 80076; 83605; 84484; 83690; 83880; 71250; 74176; 71045; J2405; J7030; 93005; G0378

== ENCOUNTER 2024-01-19 10:21 | Emergency (ER) | payer OTHER ==
--- OUTSIDE RECORDS SUMMARY | 2024-01-19 10:27 | XMS REPORT | Continuity of Care Document ---
Author Name Unknown Address [address] [place] [address] [facility] Address [address] [place] [address] Care Team Providers Care Social And Political Studies Professor Name Role Phone TRUNG GÓMEZ Primary Care Physician Unavaila Yunier No Attending Clinician Unavailable Rahul Jasmine Attending Clinician Unavailable LIANA SMITH Attending Clinician Unavailable DERICK MOORE Attending Clinician Unavailable Liana Smith MD Attending Clinician [phone] LUZMARIA MCCARTNEY Attending Clinician Unavailable AIMEE YUAN Attending Clinician Unavailable AIMEE YUAN Attending Clinician Unavailable Doctor Unassigned, [place] Attending Clinician U GRADY Florez Attending Clinician Unavailable Grady Small DO Attending Clinician [phone] Chip Talavera DO Attending Clinician [phone] GAYLORD_S Attending Clinician Unavailable Desnashzo_T Attending Clinician Unavailable BERENICE ASHER Attending Clinician Unavailab Berenice Dooley DO Attending Clinician [phone] Carmen Akhtar MD Attending Clinician [phone] DAVIDSON TORRES Attending Clinician Unavailable Davidson Torres MD Attending Clinician [phone] CARMEN AKHTAR Attending Clinician UnaREENA Mason Attending Clinician Unavailable Enoc Vega Attending Clinician [phone] Fortunato Luna Attending Clinician [phone] FORTUNATO HEDRICK Attending Clinician Unavailable RUSLAN POSADAS Attending Clinician Unav ailable ATANASOV, STRAHIL T Attending Clinician Unavaila ble ATANASOV, STRAHIL T Attending Clinician Unavaila BENNETT Gonzalez Attending Clinician Unavailable TON ARAGON Attending Clinician UnavailSHELBY Currie Attending Clinician Unavailable LE, CHIP Admitting Clinician Unavailable Le DO, Chip Admitting Clinician GAYLORD_S Admitting Clinician Unavailable Deshazo_T Admitting Clinician Unavailable Payers Payer Name Policy Type Policy Number Effective Date Expirati on Date Source [facility] [id number] 2019 00:00:00 [employer] [place] [id number] 00:00:00 [employer] MEDICARE ADVANTAGE PLAN [id number] 2021 00:00:00 [employer] (MEDICARE REPLACEMENT HMO) [id number] 2020 00:00:00 COMMERCIAL NON-CONTRACT GENERIC [id number] 2020 00:00:00 MEDICARE PART A \\T\\ B [id number] 2021 00:00:00 Problems Condition Name Condition Details Condition Category Status Onset Date Resolution Date Last Treatment Date Treating Clinician Comments Source Shortness of breath Shortness of breath Disease Active 12-27 00:00: 00 [facility] Preoperati ve cardiovasc ular examinatio n Preoperati ve cardiovasc ular examinatio n Disease Active 12-27 00:00: 00 [facility] End stage renal disease End stage renal disease Disease Active 12-27 00:00: 00 [facility] Excessive daytime sleepiness Excessive daytime sleepiness Disease Active 730 00:00: 00 [facility] Chronic arterial ischemic stroke Chronic arterial ischemic stroke Disease Active 24 00:00: 00 [facility] Essential hypertensi on Essential hypertensi on Disease Active 624 00:00: 00 [facility] Neuropathy of both feet Neuropathy of both feet Disease Active 24 00:00: 00 [facility] Neuropathy of both feet Neuropathy of both feet Disease Active 24 00:00: 00 [facility] Legal blindness Legal blindness Disease Active 514 00:00: 00 [facility] Abnormal finding on CT scan Abnormal finding on CT scan Disease Active 2019-09 0-12 00:00: 00 [facility] Stroke Stroke Disease Active 2019-09 0-10 00:00: 00 [facility] Uncontroll ed type 2 diabetes mellitus with hyperglyce thalia Uncontroll ed type 2 diabetes mellitus with hyperglyce thalia Disease Active 05 00:00: 00 [facility] [id number] Moderate major depression , single episode Problem [facility] [id number] Type 2 diabetes mellitus with other diabetic kidney complicati on Problem [facility] [id number] Type 2 diabetes mellitus with diabetic chronic kidney disease Problem [facility] [id number] Chronic kidney disease, stage 3 unspecifie d Problem [facility] Depression Depression Problem [facility] [id number] Current use of insulin Problem [facility] Hypertensi on HTN (hypertens ion) Problem [facility] Erectile dysfunctio n Erectile dysfunctio n Problem [facility] Vitamin D deficiency Vitamin D deficiency Problem [facility] Mixed hyperlipid emia Mixed hyperlipid emia Problem [facility] Anxiety Anxiety Problem [facility] Hyperglyce thalia due to type 2 diabetes mellitus Uncontroll ed type 2 diabetes mellitus with hyperglyce thalia Problem [facility] Allergies, Adverse Reactions, Alerts Allergy Name Allergy Type Status Severity Reaction(s) Onset Date Inactive Date Treating Clinician Comments Source Amlodipi ne Propensi ty to adverse reaction s Active Diarrhea 2020-09 00:00: 00 severe [facility] AMLODIPI NE DRUG INGREDI Active Diarrhea 2020-09 00:00: 00 [facility] NO KNOWN ALLERGIE S Drug Class Active [facility] Social History Social Habit Start Date Stop Date Quantity Comments Source Sex Assigned At [facility] History of tobacco use Cigarette Smoker [facility] History SDOH Alcohol Frequency [facility] History SDOH Alcohol Std Drinks [facility] History SDOH Alcohol Binge [facility] Cigarettes smoked current (pack per day) - Reported 2023-12-28 00:00:00 2023-12-28 00:00:00 [facility] Cigarette pack-years 2023-12-28 00:00:00 2023-12-28 00:00:00 [facility] Tobacco use and exposure 2023-12-28 00:00:00 2023-12-28 00:00:00 Smokeless tobacco non-user [facility] Alcohol intake 2023-12-28 00:00:00 2023-12-28 00:00:00 1.71 /d [facility] History of Social function 2023-12-28 00:00:00 2023-12-28 00:00:00 [facility] Exposure to SARS-CoV-2 (event) 2022-10-12 00:00:00 2022-10-22 14:30:00 Not sure [facility] Alcohol Comment 2021-03-04 00:00:00 2021-03-04 00:00:00 was drinking daily, now a couple days a week [facility] Education - What is the highest level of school you have completed or the highest degree you have received? 2020-12-15 00:00:00 2020-12-15 00:00:00 8th grade [facility] Smoking Status Start Date Stop Date Source Ex-smoker 2023-12-28 00:00:00 2023-12-28 00[facility]00[facility]00 [facility] Current Smoker 2022-11-22 00:00:00 [facility] Medications Ordered Medication Name Filled Medication Name Start Date Stop Date Current Medication? Ordering Clinician Indication Dosage Frequency Signature (SIG) Comments Components Source bimatoprost (LUMIGAN) 0.01 % ophthalmic drops 12-27 09:08: 29 Yes 1[drp] Place 1 Drop in each eye in the morning. [facility] atenoloL 25 mg tablet 12-27 09:08: 29 Yes 25mg Take 1 tablet by mouth at bedtime. [facility] calcium acetate,stephen sphat bind, 667 mg capsule 12-27 09:08: 29 Yes 667mg Take 1 capsule by mouth. [facility] liraglutide (VICTOZA 2-CUCO) 0.6 mg/0.1 mL (18 mg/3 mL) injection 12-27 09:08: 29 Yes 1.2mg inject 1.2 mg under the skin. [facility] sodium bicarbonate 650 mg tablet 12-27 09:08: 29 Yes TAKE 1 TABLET BY MOUTH IN THE MORNING AND 1 AT NOON AND 1 IN THE EVENING WITH MEALS [facility] amLODIPine 10 mg tablet 12-21 00:00: 00 12-22 04:59 :00 Yes 10mg Take 1 tablet by mouth in the morning. [facility] traZODone 50 mg tablet 12-21 00:00: 00 12-22 04:59 :00 Yes 50mg Take 1 tablet by mouth. [facility] latanoprost 0.005 % ophthalmic drops 12-01 00:00: 00 Yes 1[drp] Place 1 Drop in both eyes every evening. [facility] hydralAZINE (APRESOLINE ) injection 10 mg 09-16 02:15: 00 09-16 02:12 :00 No 10mg 10 mg, Slow IV Push, ONCE, 1 dose, On Mon09/15/23 at 2015, BROOKE [facility] fluticasone propionate 50 mcg/actuati on nasal spray 2022-09 00:00: 00 08-10 05:59 :00 No 1{spray } Use 1 [place] in each nostril. [facility] diphenhydrA MINE (BENADRYL) tablet 50 mg 10-22 20:30: 00 10-22 20:29 :00 No 50mg 50 mg, Oral, ONCE, 1 dose, On 10/22/22 at 1430, BROOKE [facility] Victoza 18 MG/3ML Victoza 18 MG/3ML 03-02 00:00: 00 04-01 00:00 :00 No QD Victoza 18 MG/3ML Vitamin D3 13175 UNIT Vitamin D3 10101 UNIT 03-01 00:00: 00 05-30 00:00 :00 No 1{capsu le} Vitamin D3 68532 UNIT cloNIDine (CATAPRES) tablet 0.2 mg 01-06 13:00: 00 Yes .2mg 0.2 mg, Oral, TID, First dose on Kaylie 01/06/22 at 0800, Until Discontinu ed, Routine [facility] Lisinopril- hydroCHLORO thiazide 20-12.5 MG Lisinopril- hydroCHLORO [...] 5 MG lancets (FREESTYLE LANCETS) 28 gauge [facility] 3-28 00:00: 00 Yes [id number] USE ONE LANCET TO CHECK BLOOD GLUCOSE 2 TO 3 TIMES A DAY [facility] Lancets [facility] 1-11 00:00: 00 Yes [id number] Check sugars 2-3 times a day. Dx Code E11.9. Brand per insurance. Patient has uncontroll ed diabetes and needs to check sugars at least 2 times a day. ACCU-CHEK- same brand as meter [facility] blood sugar diagnostic strip 09-21 00:00: 00 Yes [id number] Check sugars 2-3 times a day. Dx Code E11.9. Brand per insurance. Patient has uncontroll ed diabetes and needs to check sugars at least 2 times a day. ACCU-CHEK- same brand as meter [facility] Blood-Gluco se Meter Kit 09-21 00:00: 00 Yes [id number] Check sugars 2-3 times a day. Dx Code E11.9. Brand per insurance. Patient has uncontroll ed diabetes and needs to check sugars at least 2 times a day. ACCU-CHEK [facility] blood sugar diagnostic strip 09-21 00:00: 00 Yes [id number] Check sugars 2-3 times a day. Dx Code E11.9. Brand per insurance. Patient has uncontroll ed diabetes and needs to check sugars at least 2 times a day. ACCU-CHEK- same brand as meter [facility] Blood-Gluco se Meter Kit 09-21 00:00: 00 Yes [id number] Check sugars 2-3 times a day. Dx Code E11.9. Brand per insurance. Patient has uncontroll ed diabetes and needs to check sugars at least 2 times a day. ACCU-CHEK [facility] sildenafiL (VIAGRA) 100 mg tablet 09-17 00:00: 00 Yes [id number] 100mg Take 1 tablet by mouth daily. [facility] metformin ER 500 mg 24 hr tablet 2020-09 00:00: 00 Yes [id number] 1000mg Take 2 tablets by mouth 2 (two) times daily. [facility] lisinopriL- hydrochloro thiazide 20-25 mg per tablet 2020-09 00:00: 00 Yes [id number] 1{tbl} Take 1 tablet by mouth daily. [facility] doxazosin 2 mg tablet 2020-09 00:00: 00 Yes [id number] 2mg Take 1 tablet by mouth at bedtime. [facility] bimatoprost (LUMIGAN) 0.01 % ophthalmic drops 05-06 11:38: 50 Yes 1[drp] Place 1 Drop in each eye daily. [facility] Insulin Regular Human (NOVOLIN R FLEXPEN) 100 unit/mL (3 mL) InPn 04-09 00:00: 00 Yes [id number] Check blood sugars fasting before meals and 2 hours after 1 meal of the day. If sugars are 180-200 take 6 units of insulin, 201-250 take 8 units, 251-300 take 10 units, 301-350 take 12 units, 351-400 take 14 units, 401-450 take 16 units, 451-500 take 18 units, if >500 take 20 units, recheck in 2 hours. If still high call the clinic. [facility] Blood-Gluco se Meter Kit 04-09 00:00: 00 09-21 00:00 :00 No [id number] Check sugars 2-3 times a day. Dx Code E11.9. Brand per insurance. Patient has uncontroll ed diabetes and needs to check sugars at least 2 times a day. [facility] blood sugar diagnostic strip 04-09 00:00: 00 09-21 00:00 :00 No [id number] Check sugars 2-3 times a day. Dx Code E11.9. Brand per insurance. Patient has uncontroll ed diabetes and needs to check sugars at least 2 times a day. [facility] Lancets Misc 04-09 00:00: 00 09-21 00:00 :00 No [id number] Check sugars 2-3 times a day. Dx Code E11.9. Brand per insurance. Patient has uncontroll ed diabetes and needs to check sugars at least 2 times a day. [facility] ergocalcife rol, vitamin d2, (VITAMIN D2) 1,250 mcg (50,000 unit) capsule 03-08 00:00: 00 Yes [id number] [id number] Take 1 capsule by mouth weekly. [facility] insulin syr/ndl U100 half adri 0.3 mL 30 gauge x 1/2" Syrg 03-08 00:00: 00 Yes [id number] 1{syrin ge} 1 Syringe 2 (two) times daily. [facility] insulin glargine (LANTUS U-100 INSULIN) 100 unit/mL injection 03-04 00:00: 00 Yes [id number] 20U inject 20 Units under the skin daily. [facility] prednisoLON E acetate 1 % ophthalmic suspension drops 12-18 00:00: 00 Yes 1[drp] Place 1 Drop in both eyes in the morning. [facility] metFORMIN HCl 500 MG metFORMIN HCl 500 MG No 1{table t_with_ a_meal} QD metFORMIN HCl 500 MG Sildenafil Citrate 100 MG Sildenafil Citrate 100 MG No 1{table t_as_ne eded} QD Sildenafil Citrate 100 MG Lisinopril 20 MG Lisinopril 20 MG No 1{table t} QD Lisinopril 20 MG Atorvastati n Calcium 20 MG Atorvastati n Calcium 20 MG No 1{table t} QD Atorvastat in Calcium 20 MG Lisinopril- hydroCHLORO thiazide 20-12.5 MG Lisinopril- hydroCHLORO thiazide 20-12.5 MG No 2{table t} QD Lisinopril -hydroCHLO ROthiazide 20-12.5 MG amLODIPine Besylate 5 MG amLODIPine Besylate 5 MG No 1{table t} QD amLODIPine Besylate 5 MG Sildenafil Citrate 100 MG Sildenafil Citrate 100 MG No 1{table t_as_ne eded} QD Sildenafil Citrate 100 MG Atorvastati n Calcium 20 MG Atorvastati [...] t} QD Lisinopril 20 MG Vitamin D3 22854 UNIT Vitamin D3 58207 UNIT No 1{capsu le} Vitamin D3 87251 UNIT Lisinopril 20 MG Lisinopril 20 MG No 1{table t} QD Lisinopril 20 MG metFORMIN HCl ER 500 MG metFORMIN HCl ER 500 MG No BID metFORMIN HCl ER 500 MG Victoza 18 MG/3ML Victoza 18 MG/3ML No QD Victoza 18 MG/3ML Vitamin D3 56797 UNIT Vitamin D3 87860 UNIT No 1{capsu le} Vitamin D3 83595 UNIT amLODIPine Besylate 5 MG amLODIPine Besylate [...] t} QD Atorvastat in Calcium 20 MG Vitamin D3 84510 UNIT Vitamin D3 02694 UNIT No 1{capsu le} Vitamin D3 15810 UNIT Lisinopril- hydroCHLORO thiazide 20-12.5 MG Lisinopril- [...] 1{table t} QD amLODIPine Besylate 5 MG Victoza 18 MG/3ML Victoza 18 MG/3ML No Victoza 18 MG/3ML Atorvastati n Calcium 20 MG Atorvastati n Calcium 20 MG No 1{table t} QD Atorvastat in Calcium 20 MG Sildenafil Citrate 100 MG Sildenafil Citrate 100 MG No Sildenafil Citrate 100 MG Vitamin D3 78300 UNIT Vitamin D3 00854 UNIT No 1{capsu le} Vitamin D3 06817 UNIT Lisinopril- hydroCHLORO thiazide 20-12.5 MG Lisinopril- [...] No amLODIPine Besylate 5 MG Vitamin D3 23092 UNIT Vitamin D3 86490 UNIT No 1{capsu le} Vitamin D3 83154 UNIT Atorvastati n Calcium 20 MG Atorvastati n Calcium 20 MG No 1{table t} QD Atorvastat in Calcium 20 MG metFORMIN HCl 500 MG metFORMIN HCl 500 MG No 1{table t_with_ a_meal} QD metFORMIN HCl 500 MG Victoza 18 MG/3ML Victoza 18 MG/3ML No Victoza 18 MG/3ML Sildenafil Citrate 100 MG Sildenafil Citrate 100 [...] - single dose syringe 2022-06-16 08:58:00 Completed [facility] Flucelvax - single dose syringe Flucelvax - single dose syringe 2022-06-16 08:58:00 Completed [facility] Flucelvax - single dose syringe Flucelvax - single dose syringe 2022-06-16 08:58:00 Completed [facility] SARS-COV-2 COVID-19 MODERNA VACCINE 2020-12-06 00:00:00 Completed [facility] SARS-COV-2 COVID-19 MODERNA VACCINE 2020-12-06 00:00:00 Completed [facility] SARS-COV-2 COVID-19 MODERNA VACCINE 2020-12-06 00:00:00 Completed [facility] SARS-COV-2 COVID-19 MODERNA 12+ YRS VACCINE 2020-12-06 00:00:00 Completed [facility] SARS-COV-2 COVID-19 MODERNA 12+ YRS VACCINE 2020-12-06 00:00:00 Completed [facility] SARS-COV-2 COVID-19 MODERNA VACCINE 2020-11-08 00:00:00 Completed [facility] SARS-COV-2 COVID-19 MODERNA VACCINE 2020-11-08 00:00:00 Completed [facility] SARS-COV-2 COVID-19 MODERNA VACCINE 2020-11-08 00:00:00 Completed [facility] SARS-COV-2 COVID-19 MODERNA 12+ YRS VACCINE 2020-11-08 00:00:00 Completed [facility] SARS-COV-2 COVID-19 MODERNA 12+ YRS VACCINE 2020-11-08 00:00:00 Completed [facility] Flucelvax - single dose syringe Flucelvax - single dose syringe Unknown Completed [facility] Flucelvax - single dose syringe Flucelvax - single dose syringe Unknown Completed [facility] SARS-COV-2 COVID-19 MODERNA 12+ YRS VACCINE Unknown Completed [facility] SARS-COV-2 COVID-19 MODERNA 12+ YRS VACCINE Unknown Completed [facility] SARS-COV-2 COVID-19 MODERNA 12+ YRS VACCINE Unknown Completed [facility] SARS-COV-2 COVID-19 MODERNA 12+ YRS VACCINE Unknown Completed [facility] SARS-COV-2 COVID-19 MODERNA 12+ YRS VACCINE Unknown Completed [facility] SARS-COV-2 COVID-19 MODERNA 12+ YRS VACCINE Unknown Completed [facility] SARS-COV-2 COVID-19 MODERNA 12+ YRS VACCINE Unknown Completed [facility] SARS-COV-2 COVID-19 MODERNA 12+ YRS VACCINE Unknown Completed [facility] SARS-COV-2 COVID-19 MODERNA 12+ YRS VACCINE Unknown Completed [facility] SARS-COV-2 COVID-19 MODERNA 12+ YRS VACCINE Unknown Completed [facility] SARS-COV-2 COVID-19 MODERNA 12+ YRS VACCINE Unknown Completed [facility] SARS-COV-2 COVID-19 MODERNA 12+ YRS VACCINE Unknown Completed [facility] Vital Signs Vital Name Observation Time Observation Value Comments S ource Systolic blood pressure 2023-12-28 14:02:00 182 mm[Hg] [facility] Diastolic blood pressure 2023-12-28 14:02:00 90 mm[Hg] [facility] Heart rate 2023-12-28 14:02:00 68 /min [facility] Body temperature 2023-12-28 13:54:00 36.17 Kristal [facility] Respiratory rate 2023-12-28 13:54:00 16 /min [facility] Body height 2023-12-28 13:54:00 172.7 cm [facility] Body weight 2023-12-28 13:54:00 71.753 kg [facility] BMI 2023-12-28 13:54:00 24.05 kg/m2 [facility] Oxygen saturation in Arterial blood by Pulse oximetry 2023-12-28 13:54:00 100 /min [facility] Systolic blood pressure 2023-09-16 04:00:00 176 mm[Hg] [facility] Diastolic blood pressure 2023-09-16 04:00:00 107 mm[Hg] [facility] Respiratory rate 2023-09-16 04:00:00 18 /min [facility] Oxygen saturation in Arterial blood by Pulse oximetry 2023-09-16 04:00:00 97 /min [facility] Heart rate 2023-09-16 03:10:00 112 /min [facility] Body temperature 2023-09-16 00:34:26 37.28 Kristal [facility] Body height 2023-09-16 00:23:00 172.7 cm [facility] Body weight 2023-09-16 00:23:00 71.668 kg [facility] BMI 2023-09-16 00:23:00 24.02 kg/m2 [facility] Systolic blood pressure 2022-10-22 20:23:00 158 mm[Hg] states he has not taken his BP medications yet today [facility] Diastolic blood pressure 2022-10-22 20:23:00 106 mm[Hg] states he has not taken his BP medications yet today [facility] Heart rate 2022-10-22 20:23:00 97 /min [facility] Body temperature 2022-10-22 20:23:00 37 Kristal [facility] Respiratory rate 2022-10-22 20:23:00 20 /min [facility] Body height 2022-10-22 20:23:00 172.7 cm [facility] Body weight 2022-10-22 20:23:00 75.751 kg [facility] BMI 2022-10-22 20:23:00 25.39 kg/m2 [facility] Oxygen saturation in Arterial blood by Pulse oximetry 2022-10-22 20:23:00 100 /min [facility] height 2022-06-16 08:20:00 66.5 [in_i] [facility] weight 2022-06-16 08:20:00 152 [lb_av] [facility] temperature 2022-06-16 08:20:00 96.7 [degF] [facility] bmi 2022-06-16 08:20:00 24.16 kg/m2 [facility] oximetry 2022-06-16 08:20:00 98 % [facility] respiratory rate 2022-06-16 08:20:00 18 /min [facility] blood pressure systolic 2022-06-16 08:20:00 138 mm[Hg] [facility] blood pressure diastolic 2022-06-16 08:20:00 82 mm[Hg] [facility] height 2022-04-04 15:00:00 68.00 [in_i] [facility] weight 2022-04-04 15:00:00 152.2 [lb_av] [facility] temperature 2022-04-04 15:00:00 98.4 [degF] [facility] bmi 2022-04-04 15:00:00 23.14 kg/m2 [facility] oximetry 2022-04-04 15:00:00 98 % [facility] respiratory rate 2022-04-04 15:00:00 18 /min [facility] blood pressure systolic 2022-04-04 15:00:00 137 mm[Hg] [facility] blood pressure diastolic 2022-04-04 15:00:00 76 mm[Hg] [facility] height 2022-04-04 15:20:00 68.00 [in_i] [facility] weight 2022-04-04 15:20:00 152.2 [lb_av] [facility] temperature 2022-04-04 15:20:00 98.4 [degF] [facility] bmi 2022-04-04 15:20:00 23.14 kg/m2 [facility] oximetry 2022-04-04 15:20:00 98 % [facility] respiratory rate 2022-04-04 15:20:00 18 /min [facility] blood pressure systolic 2022-04-04 15:20:00 137 mm[Hg] [facility] blood pressure diastolic 2022-04-04 15:20:00 76 mm[Hg] [facility] height 2022-03-02 09:10:00 68.00 [in_i] [facility] weight 2022-03-02 09:10:00 157.2 [lb_av] [facility] temperature 2022-03-02 09:10:00 97.3 [degF] [facility] bmi 2022-03-02 09:10:00 23.9 kg/m2 [facility] oximetry 2022-03-02 09:10:00 100 % [facility] respiratory rate 2022-03-02 09:10:00 18 /min [facility] blood pressure systolic 2022-03-02 09:10:00 138 mm[Hg] [facility] blood pressure diastolic 2022-03-02 09:10:00 82 mm[Hg] [facility] height 2022-02-16 08:00:00 68.00 [in_i] [facility] weight 2022-02-16 08:00:00 156.9 [lb_av] [facility] temperature 2022-02-16 08:00:00 97.2 [degF] [facility] bmi 2022-02-16 08:00:00 23.85 kg/m2 [facility] oximetry 2022-02-16 08:00:00 99 % [facility] respiratory rate 2022-02-16 08:00:00 18 /min [facility] blood pressure systolic 2022-02-16 08:00:00 132 mm[Hg] [facility] blood pressure diastolic 2022-02-16 08:00:00 76 mm[Hg] [facility] Systolic blood pressure 2022-01-06 04:43:00 189 mm[Hg] [facility] Diastolic blood pressure 2022-01-06 04:43:00 118 mm[Hg] [facility] Heart rate 2022-01-06 04:43:00 95 /min [facility] Respiratory rate 2022-01-06 04:43:00 20 /min [facility] Oxygen saturation in Arterial blood by Pulse oximetry 2022-01-06 04:43:00 99 /min [facility] Body temperature 2022-01-06 04:17:00 37.22 Kristal [facility] Body height 2022-01-06 04:17:00 172.7 cm [facility] Body weight 2022-01-06 04:17:00 77.111 kg [facility] BMI 2022-01-06 04:17:00 25.85 kg/m2 [facility] oximetry 2022-01-04 10:00:00 97 % [facility] respiratory rate 2022-01-04 10:00:00 17 /min [facility] blood pressure systolic 2022-01-04 10:00:00 137 mm[Hg] [facility] blood pressure diastolic 2022-01-04 10:00:00 85 mm[Hg] [facility] height 2022-01-04 10:00:00 68.00 [in_i] [facility] weight 2022-01-04 10:00:00 156.6 [lb_av] [facility] temperature 2022-01-04 10:00:00 97.8 [degF] [facility] bmi 2022-01-04 10:00:00 23.81 kg/m2 [facility] Procedures Procedure Date / Time Performed Performing Clinicia n Source REFERRAL- REQUEST/RESPONSE 2023-09-28 06:01:00 Doctor Unassigned, [place] [facility] URINALYSIS 2023-09-16 01:26:00 Grady Small [facility] XR CHEST 1 VW 2023-09-16 00:59:20 Grady Small [facility] POCT GLUCOSE (AUTOMATED) 2023-09-16 00:52:00 Singer [facility] LACTIC ACID WHOLE BLOOD 2023-09-16 00:49:00 Singer [facility] TROPONIN I 2023-09-16 00:48:00 Grady Small [facility] COMP. METABOLIC PANEL (95308) 2023-09-16 00:48:00 Singer [facility] CBC WITH DIFF 2023-09-16 00:48:00 Singer [facility] RAPID INFLUENZA A/B 2023-09-16 00:48:00 [facility] N-TERMINAL PRO-BNP 2023-09-16 00:48:00 Singer [facility] COVID-19 (ID NOW RAPID TESTING) 2023-09-16 00:48:00 Singer [facility] NOTICE OF PRIVACY PRACTICES 2023-09-16 00:05:57 Doctor Unassigned, [place] [facility] CONSENT/REFUSAL FOR DIAGNOSIS AND TREATMENT 2023-09-16 00:01:56 Doctor Unassigned, [place] [facility] CONSENT/REFUSAL FOR DIAGNOSIS AND TREATMENT 2022-10-22 20:18:01 Doctor Unassigned, [place] [facility] COMP. METABOLIC PANEL (32319) 2022-01-06 04:34:00 Brian [facility] CBC WITH DIFF 2022-01-06 04:34:00 [facility] NOTICE OF PRIVACY PRACTICES 2022-01-06 04:06:29 Doctor Unassigned, [place] [facility] CONSENT/REFUSAL FOR DIAGNOSIS AND TREATMENT 2022-01-06 04:05:18 Doctor Unassigned, [place] [facility] Encounters Start Date/Time End Date/Time Encounter Type Admission Type Attending Clinicians Care Facility Care Department Encounter ID Source 2022-11-17 14:49:01 Outpatient Danial [facility] [id number] [facility] 2022-08-19 11:40:02 Outpatient Danial [facility] [id number] [facility] 2022-06-15 11:26:03 Outpatient Yunier Barrow [facility] [id number] [facility] 2022-03-02 15:11:02 Outpatient Yunier Barrow [facility] [id number] [facility] 2022-02-15 10:14:02 Outpatient [facility] [id number] [facility] 2022-01-04 10:07:04 Outpatient Rahul Jasmine [facility] [id number] [facility] 2021-07-11 11:01:51 Emergency [facility] [id number] [facility] 2021-07-09 22:11:41 Emergency [facility] [id number] [facility] 2024-01-31 14:00:00 2024-01-31 14:00:00 Outpatient LIANA CARTAGENA [facility] [id number] [facility] 2024-01-22 13:00:00 2024-01-22 13:00:00 Outpatient DERICK CARTY [facility] [id number] [facility] 2024-01-10 11:00:00 2024-01-10 11:00:00 Outpatient LIANA CARTAGENA [facility] [id number] [facility] 2024-01-01 14:00:00 2024-01-01 14:00:00 Outpatient DERICK CARTY [facility] [id number] [facility] 2023-12-28 09:00:00 2023-12-28 09:49:00 Outpatient LIANA CARTAGENA [facility] [id number] [facility] 2023-12-28 09:00:00 2023-12-28 09:49:00 Office Visit [facility] 1.2.840.114 350.1.13.10 4.2.7.2.686 [id number] [facility] 2023-12-28 00:00:00 2023-12-28 00:00:00 Telephone Liana Smith [facility] 1.840.114 350.1.13.10 4.2.7.2.686 [id number] [facility] 2023-10-19 10:00:00 2023-10-19 10:00:00 Outpatient LUZMARIA MENDOZA [facility] [id number] [facility] 2023-10-13 09:30:00 2023-10-13 09:30:00 Outpatient AIMEE PEREZ LOVELaurie [facility] [id number] [facility] 2023-10-10 00:00:00 2023-10-10 00:00:00 Telephone Ana Cox Monettlaurie [facility] 1.0.114 350.1.13.10 4.2.7.2.686 [id number] [facility] 2023-09-28 00:00:00 2023-09-28 00:00:00 Orders Only Doctor Unassigned, [place] [facility] 1.840.114 350.1.13.10 4.2.7.2.686 [id number] [facility] 2023-09-15 18:25:00 2023-09-15 23:21:00 Emergency X GRADY SMALL [facility] ERT [id number] [facility] 2023-09-15 18:25:00 2023-09-15 23:21:00 Emergency Grady Small [facility] 1.840.114 350.1.13.10 4.2.7.2.686 [id number] [facility] 2023-07-22 00:00:00 2023-07-22 00:00:00 Outpatient GAYLORD_S DM[facility] DMG [id number] [facility] 2023-04-04 00:00:00 2023-04-04 00:00:00 Outpatient GAYLORD_S DMG DMG [id number] [facility] 2023-04-04 00:00:00 2023-04-04 00:00:00 Outpatient GAYLORD_S DMG DMG [id number] [facility] 2023-02-15 00:00:00 2023-02-15 00:00:00 Outpatient GAYLORD_S DMG DMG [id number] [facility] 2023-02-15 00:00:00 2023-02-15 00:00:00 Outpatient GAYLORD_S DMG DMG [id number] [facility] 2022-12-13 00:00:00 2022-12-13 00:00:00 Outpatient Deshazo_T DMG DMG [id number] [facility] 2022-12-13 00:00:00 2022-12-13 00:00:00 Outpatient Deshazo_T DMG DMG [id number] [facility] 2022-11-21 00:00:00 2022-11-21 00:00:00 [facility]EL[id number] 2022-10-24 00:00:00 2022-10-24 00:00:00 (TEL) [facility] [id number] [facility] 2022-10-22 14:26:00 2022-10-22 14:48:00 Emergency X BERENICE ASHER [facility] ERT [id number] [facility] 2022-10-22 14:26:00 2022-10-22 14:48:00 Emergency Berenice Asher [facility] 1.2.840.114 350.1.13.10 4.2.7.2.686 [id number] [facility] 2022-10-21 00:00:00 2022-10-21 00:00:00 Carmen Hinson [facility] 1.2.840.114 350.1.13.10 4.2.7.2.686 [id number] [facility] 2022-08-22 00:00:00 2022-08-22 00:00:00 (TEL) STLMLC STLMLC [id number] [facility] 2022-06-16 00:00:00 2022-06-16 00:00:00 OFFICE VISIT ESTAB PT LEVEL 4 STLMLC STLMLC [id number] [facility] 2022-04-07 00:00:00 2022-04-07 00:00:00 (TEL) STLMLC STLMLC [id number] [facility] 2022-04-04 00:00:00 2022-04-04 00:00:00 OFFICE VISIT ESTAB PT LEVEL 4 STLMLC STLMLC [id number] [facility] 2022-04-04 00:00:00 2022-04-04 00:00:00 (TEL) STLMLC STLMLC [id number] [facility] 2022-04-04 00:00:00 2022-04-04 00:00:00 SUB ANNUAL [facility] VISIT STLMLC STLMLC [id number] [facility] 2022-03-30 00:00:00 2022-03-30 00:00:00 (TEL) STLMLC STLMLC [id number] [facility] 2022-03-28 00:00:00 2022-03-28 00:00:00 (TEL) STLMLC STLMLC [id number] [facility] 2022-03-25 06:17:00 2022-03-25 06:17:00 [place] [id number] [facility] 2022-03-04 00:00:00 2022-03-04 00:00:00 (TEL) STLMLC STLMLC [id number] [facility] 2022-03-02 00:00:00 2022-03-02 00:00:00 OFFICE VISIT ESTAB PT LEVEL 4 STLMLC STLMLC [id number] [facility] 2022-02-16 00:00:00 2022-02-16 00:00:00 PREV VISIT EST AGE 40-64 STLMLC STLMLC [id number] [facility] 2022-01-25 00:00:00 2022-01-25 00:00:00 (TEL) STLMLC STLC [id number] [facility] 2022-01-17 07:28:00 2022-01-17 07:28:00 Outpatient Elodia_T JANNY [facility] [id number] [facility] 2022-01-05 23:20:00 2022-01-05 23:57:00 Emergency X DAVIDSON TORRES [facility] ERT [id number] [facility] 2022-01-05 23:20:00 2022-01-05 23:57:00 Emergency Davidson Torres [facility] .2.840.114 350.1.13.10 4.2.7.2.686 [id number] [facility] 2022-01-04 00:00:00 2022-01-04 00:00:00 OFFICE VISIT NEW PT LEVEL 4 STLC [facility] [id number] [facility] 2021-12-04 00:00:00 2021-12-04 00:00:00 RefCarmen Hills [facility] .2.840.114 350.1.13.10 4.2.7.2.686 [id number] [facility] 2021-11-30 08:40:00 2021-11-30 08:40:00 Outpatient CARMEN SWIFT [facility] [id number] [facility] 2021-11-30 08:40:00 2021-11-30 08:40:00 Outpatient R CARMEN AKHTAR [facility] [id number] [facility] 2021-09-14 00:00:00 2021-09-14 00:00:00 [facility] 1.2.840.114 350.1.13.10 4.2.7.2.686 [id number] [facility] 2021-09-10 08:32:00 2021-09-10 08:32:[place] [id number] [facility] 2021-09-08 00:00:00 2021-09-08 00:00:00 Telephone Carmen Akhtar [facility] 1.2.840.114 350.1.13.10 4.2.7.2.686 [id number] [facility] 2021-08-18 13:40:00 2021-08-18 13:40:00 Outpatient R RIZWAN REENA [facility] [id number] [facility] 2021-08-18 13:40:00 2021-08-18 13:40:00 Outpatient R REENA ASTORGA [facility] [id number] [facility] 2021-08-02 11:05:37 2021-08-02 12:30:39 Office Visit Carmen Akhtar [facility] 1.2.840.114 350.1.13.10 4.2.7.2.686 [id number] [facility] 2021-08-02 11:00:00 2021-08-02 12:30:39 Outpatient R CARMEN AKHTAR [facility] [id number] [facility] 2021-07-22 00:00:00 2021-07-22 00:00:00 Refill Carmen Akhtar [facility] 1.2.840.114 350.1.13.10 4.2.7.2.686 [id number] [facility] 2021-07-13 00:00:00 2021-07-13 00:00:00 Telephone Carmen Akhtar [facility] 1.2.840.114 350.1.13.10 4.2.7.2.686 [id number] [facility] 2021-07-11 00:00:00 2021-07-11 00:00:00 Refill Carmen Akhtar [facility] 1.2.840.114 350.1.13.10 4.2.7.2.686 [id number] [facility] 2021-07-07 16:24:40 2021-07-07 16:39:51 Urgent Care Enoc Diamond, [facility] 1.2.840.114 350.1.13.10 4.2.7.2.686 [id number] [facility] 2021-07-07 16:20:00 2021-07-07 16:20:00 Outpatient FORTUNATO SAMUELS [facility] [id number] [facility] 2021-07-07 00:00:00 2021-07-07 00:00:00 Refill Carmen Akhtar [facility] 1.2.840.114 350.1.13.10 4.2.7.2.686 [id number] [facility] 2021-07-02 12:01:00 2021-07-02 12:01:00 [place] [id number] [place] [address] [facility] 2021-07-02 00:00:00 2021-07-02 00:00:00 Telephone AkhtarTataCarmen Thierry [facility] 1.2.840.114 350.1.13.10 4.2.7.2.686 [id number] [facility] 2021-06-28 00:00:00 2021-06-28 00:00:00 Telephone Akhtar [facility] 1.2.840.114 350.1.13.10 4.2.7.2.686 [id number] [facility] 2021-06-25 00:00:00 2021-06-25 00:00:00 Telephone Hermilo Carmen A [facility] 1.2.840.114 350.1.13.10 4.2.7.2.686 [id number] [facility] 2021-06-09 14:20:00 2021-06-09 14:20:00 Outpatient R RUSLAN POSADAS [facility] [id number] [facility] 2021-06-03 19:30:00 2021-06-03 19:30:00 Outpatient R WILLIAM HERMAN STRAHIL [facility] [id number] [facility] 2021-06-01 15:30:00 2021-06-01 15:30:00 Outpatient R [facility] [id number] [facility] 2021-05-06 10:57:09 2021-05-06 13:00:43 Office Visit Carmen Akhtar [facility] 1.2.840.114 350.1.13.10 4.2.7.2.686 [id number] [facility] 2021-05-06 10:40:00 2021-05-06 10:40:00 Outpatient R CARMEN AKHTAR [facility] [id number] [facility] 2021-04-20 15:00:00 2021-04-20 15:00:00 Outpatient R BENNETT POOLE [facility] [id number] [facility] 2021-04-09 08:20:00 2021-04-09 08:20:00 Outpatient R CARMEN AKHTAR [facility] [id number] [facility] 2021-03-15 15:40:00 2021-03-15 15:40:00 Outpatient R BENNETT POOLE [facility] [id number] [facility] 2021-03-12 19:30:00 2021-03-12 19:30:00 Outpatient R [facility] [id number] [facility] 2021-03-04 09:00:00 2021-03-04 09:00:00 Outpatient R TON ARAGON [facility] [id number] [facility] 2020-12-06 11:40:00 2020-12-06 11:40:00 Outpatient [facility] [id number] [facility] 2020-11-08 11:05:00 2020-11-08 11:05:00 Outpatient SHELBY MAI [facility] [id number] [facility] Results Test Description Test Time Test Comments Results Resul t Comments Source XR CHEST 1 VW 2023-09-16 01:53:52 ORDERING PHYSICIAN: GRADY SMALL CLINICAL HISTORY:shortnes s of breath TECHNIQUE:AP chest radiograph. COMPARISON:None. FINDINGS:No focal pulmonary consolidation, pleural effusion or pneumothorax. Heartsize within normal limits. Visualized bones are unremarkable. [id number] 01:50:09* Test Item Value Reference Range Interpretation Comme nts NT-proBNP (test code = 32348-2) 8290 pg/mL <=125 H ALESIA (test code = ALESIA) Positive: Heart Failure Likely Lab Interpretation (test code = 24142-9) [facility] ([facility]19[facility]2023-09-16 01:41:29* Test Item Value Reference Range Interpretation Comme nts NA (test code = 9173649925) 138 mmol/L 135-145 K (test code = 6081487694) 4.5 mmol/L 3.5-5.0 CL (test code = 9087716783) 107 mmol/L 98-108 CO2 TOTAL (test code = 5941939331) 14 mmol/L 23-31 L AGAP (test code = 7233968362) 17 2-16 H BUN (test code = 7088243966) 59 mg/dL 7-23 H GLUCOSE (test code = 3511164267) 134 mg/dL 70-110 H CREATININE (test code = 6766353499) 7.17 mg/dL 0.60-1.25 H TOTAL BILI (test code = 0442608851) 0.6 mg/dL 0.1-1.1 CALCIUM (test code = 9259880670) 9.2 mg/dL 8.6-10.6 T PROTEIN (test code = 6576130631) 8.4 g/dL 6.3-8.2 H ALBUMIN (test code = 7299590090) 4.2 g/dL 3.5-5.0 ALK PHOS (test code = 1023949355) 86 U/L 34-122 ALTv (test code = 1742-6) 13 U/L 5-50 AST(SGOT) (test code = 9005846379) 20 U/L 13-40 eGFR (test code = 18564-7) 8.5 mL/min/1.73m2 CKD-EPI eGFR (2020). Assuming creatinine has been stable day-to-day for at least three months, the eGFR indicates Category G5 (<= 14mL/min/1.73 m2) Lab Interpretation (test code = 39498-3) Abnormal [facility] with [id number] 01:03:42* Test Item Value Reference Range Interpretation Comme nts WBC (test code = 6690-2) 5.92 See_Comment [Automated CardStara [email or web address]] The system which generated this result transmitted reference range: 4.20 - 10.70 10*3/?L. The reference range was not used to interpret this result as normal/abnormal. RBC (test code = 789-8) 4.05 See_Comment L [Automated messa ge] The system which generated this result transmitted reference range: 4.26 - 5.52 10*6/?L. The reference range was not used to interpret this result as normal/abnormal. HGB (test code = 718-7) 11.1 g/dL 12.2-16.4 L HCT (test code = 4544-3) 33.3 % 38.4-49.3 L MCV (test code = 787-2) 82.2 fL 81.7-95.6 MCH (test code = 785-6) 27.4 pg 26.1-32.7 MCHC (test code = 786-4) 33.3 g/dL 31.2-35.0 RDW-SD (test code = 19246-6) 37.3 fL 38.5-51.6 L RDW-CV (test code = 788-0) 12.5 % 12.1-15.4 PLT (test code = 777-3) 244 See_Comment [Automated CardStara ge] The system which generated this result transmitted reference range: 150 - 328 10*3/?L. The reference range was not used to interpret this result as normal/abnormal. MPV (test code = 46245-9) 10.5 fL 9.8-13.0 NRBC/100 WBC (test code = 7542407440) 0.0 See_Comment [Automated [employer]age] The system which generated this result transmitted reference range: 0.0 - 10.0 /100 WBCs. The reference range was not used to interpret this result as normal/abnormal. NRBC x10^3 (test code = 6331156507) See_Comment [Automated CardStara ge] The system which generated this result transmitted reference range: 10*3/?L. The reference range was not used to interpret this result as normal/abnormal. GRAN MAT (NEUT) % (test code = 770-8) 67.7 % IMM GRAN % (test code = 4225268335) 0.20 % LYMPH % (test code = 736-9) 21.6 % MONO % (test code = 5905-5) 8.3 % EOS % (test code = 713-8) 1.5 % BASO % (test code = 706-2) 0.7 % GRAN MAT x10^3(ANC) (test code = 0061125910) 4.01 10*3/uL 1.99-6.95 IMM GRAN x10^3 (test code = 4965338504) 0.00-0.06 LYMPH x10^3 (test code = 731-0) 1.28 10*3/uL 1.09-3.23 MONO x10^3 (test code = 742-7) 0.49 10*3/uL 0.36-1.02 EOS x10^3 (test code = 711-2) 0.09 10*3/uL 0.06-0.53 BASO x10^3 (test code = 704-7) 0.04 10*3/uL 0.01-0.09 Lab Interpretation (test code = 48516-1) [facility] Whole [id number] 00:55:02* Test Item Value Reference Range Interpretation Comme [facility] LACTIC ACID (test code = 8273245025) 1.40 mmol/L 0.50-2.20 Lab Interpretation (test cod e = 02359-7) Normal [facility]2023-09-16 00:53:36* Test Item Value Reference Range Interpretation Comme [facility] POCT GLU (test code = 8351973173) 131 mg/dL 70-110 H Lab Interpretation (test cod e = 05975-0) [facility]normal [facility] [id number] 00:00:00* Test Item Value Reference Range Interpretation Comme nts A1C (test code = 4548-4) 8.2 HEMOGLOBIN [id number] 00:00:00* Test Item Value Reference Range Interpretation Comme nts A1C (test code = 4548-4) 8.2 HEMOGLOBIN [id number] 00:00:00* Test Item Value Reference Range Interpretation Comme nts A1C (test code = 4548-4) 8.7 Lipid Panel w/ Chol/HDL [id number] 00:00:00* Test Item Value Reference Range Interpretation Comme nts Cholesterol, Total (test code = 2093-3) 143 mg/dL See_Comment [Automated message] The system which generated this result transmitted reference range: 100-199 mg/dL. The reference range was not used to interpret this result as normal/abnormal. Triglycerides (test code = 2571-8) 152 mg/dL See_Comment H [Automated Mamaherb] The system which generated this result transmitted reference range: 0-149 mg/dL. The reference range was not used to interpret this result as normal/abnormal. HDL Cholesterol (test code = 2085-9) 32 mg/dL See_Comment L [Automated Mamaherb] The system which generated this result transmitted reference range: >39 mg/dL. The reference range was not used to interpret this result as normal/abnormal. T. Chol/HDL Ratio (test code = 9830-1) 4.5 ratio See_Comment [Automated Mamaherb] The system which generated this result transmitted reference range: 0.0-5.0 ratio. The reference range was not used to interpret this result as normal/abnormal. UA/M w/rflx Culture, [id number] 00:00:00* Test Item Value Reference Range Interpretation Comme nts Specific [place] (test code = 2965-2) 1.020 1.005-1.030 pH (test code = 5803-2) 5.5 5.0-7.5 Urine-Color (test code = 5778-6) Yellow Yellow Appearance (test code = 5767-9) Clear Clear WBC Esterase (test code = 5799-2) Negative Negative Protein (test code = 35164-7) 4+ Negative/Trace A Glucose (test code = 2349-9) Trace Negative A Ketones (test code = 2514-8) Trace Negative A Occult Blood (test code = 5794-3) Negative Negative Bilirubin (test code = 5770-3) Negative Negative Urobilinogen,Semi-Qn (test code = 15883-0) 1.0 mg/dL See_Comment [Automated message] The system which generated this result transmitted reference range: 0.2-1.0 mg/dL. The reference range was not used to interpret this result as normal/abnormal. Nitrite, Urine (test code = 5802-4) Negative Negative Microscopic Examination (test code = 12963-5) See below: Urinalysis Reflex (test code = UNLOINC) Microalbumin/Creat Ratio, Random [id number] 00:00:00* Test Item Value Reference Range Interpretation Comme nts Creatinine, Urine (test code = 2161-8) 147.5 mg/dL Not Estab. mg/dL Albumin, Urine (test code = 60765-6) 4494.6 ug/mL Not Estab. ug/mL Alb/Creat Ratio (test code = 68378-0) 3047 mg/g creat See_Comment H [Automated messa ge] The system which generated this result transmitted reference range: 0-29 mg/g creat. The reference range was not used to interpret this result as normal/abnormal. Hemoglobin [id number] 00:00:00* Test Item Value Reference Range Interpretation Comme [facility] Hemoglobin A1c (test code = 4548-4) 9.1 % See_Comment H [Automated messa ge] The system which generated this result transmitted reference range: 4.8-5.6 %. The reference range was not used to interpret this result as normal/abnormal. Comp. Metabolic Panel (14) ([facility])2022-02-16 00:00:00* Test Item Value Reference Range Interpretation Comme [facility] Glucose (test code = 2345-7) 223 mg/dL [...] result as normal/abnormal. Chloride (test code = 5-0) 100 mmol/L See_Comment [Automated messa ge] The system which generated this result transmitted reference range: 96-106 mmol/L. The reference range was not used to interpret this result as normal/abnormal. Carbon Dioxide, Total (test code = 8-9) 23 mmol/L See_Comment [Automated message] The system which generated this result transmitted reference range: 20-29 mmol/L. The reference range was not used to interpret this result as normal/abnormal. Calcium (test code = 32761-1) 9.3 mg/dL See_Comment [Automated messa ge] The [...] as normal/abnormal. Globulin, Total (test code = 54081-0) 3.0 g/dL See_Comment [Automated messa ge] The [...] interpret this result as normal/abnormal. Uric Acid, [id number] 00:00:00* Test Item Value Reference Range Interpretation Comme [facility] Uric Acid (test code = 3084-1) 6.8 mg/dL See_Comment [Automated messa ge] The system which generated this result transmitted reference range: 3.8-8.4 mg/dL. The reference range was not used to interpret this result as normal/abnormal. CBC With Differential/Txepvnea6967-33-65 00:00:00* Test Item Value Reference Range Interpretation [...] as normal/abnormal. Immature Granulocytes (test code = 64407-6) 0 % Not Estab. % Immature Grans (Abs) (test code = 97126-4) 0.0 x10E3/uL See_Comment [Automated message] The system which generated this result transmitted reference range: 0.0-0.1 x10E3/uL. The reference range was not used to interpret this result as normal/abnormal. NRBC (test code = 48884-8) Hematology Comments: (test code = 60825-4) Vitamin D, 19-Iwdldxw7314-01-08 00:00:00* Test Item Value Reference Range Interpretation Comme nts Vitamin D, 25-Hydroxy (test code = 1989-3) 17.9 ng/mL See_Comment L [Automated messa ge] The system which generated this result transmitted reference range: 30.0-100.0 ng/mL. The reference range was not used to interpret this result as normal/abnormal. TSH reflex to Q0X5932-05-18 00:00:00* Test Item Value Reference Range Interpretation Comme nts TSH (test code = 45784-8) 2.610 uIU/mL See_Comment [Automated messa ge] The system which generated this result transmitted reference range: 0.450-4.500 uIU/mL. The reference range was not used to interpret this result as normal/abnormal. COMP. METABOLIC PANEL (51822)2022-01-06 04:54:06* Test Item Value Reference Range Interpretation Comme nts NA (test code = 7901312580) 138 mmol/L 135-145 K (test code = 6078825809) 4.5 mmol/L 3.5-5.0 CL (test code = 2339146028) 103 mmol/L 98-108 CO2 TOTAL (test code = 3679880047) 26 mmol/L 23-31 AGAP (test code = 3052492880) 2-16 BUN (test code = 1466648113) 33 mg/dL 7-23 H GLUCOSE (test code = 4555684355) 236 mg/dL 70-110 H CREATININE (test code = 0532887232) 1.95 mg/dL 0.60-1.25 H TOTAL BILI (test code = 1636399455) 0.4 mg/dL 0.1-1.1 CALCIUM (test code = 8339130007) 8.7 mg/dL 8.6-10.6 T PROTEIN (test code = 7563022167) 6.9 g/dL 6.3-8.2 ALBUMIN (test code = 6231040285) 3.7 g/dL 3.5-5.0 ALK PHOS (test code = 3150463331) 61 U/L 34-122 ALTv (test code = 1742-6) 28 U/L 5-50 AST(SGOT) (test code = 5951428894) 30 U/L 13-40 eGFR (test code = 8691186434) mL/min/1.73m2 ALESIA (test code = ALESIA) Association [...] imaging tests). Lab Interpretation (test code = 64638-6) Abnormal [facility] WITH OZEY7118-26-23 04:42:08* Test Item Value Reference Range Interpretation Comme nts WBC (test code = 6690-2) See_Comment [[employer]] The system which generated this result transmitted reference range: 4.20 - 10.70 10*3/?L. The reference range was not used to interpret this result as normal/abnormal. RBC (test code = 789-8) See_Comment [[employer]] The system which generated this result transmitted [...] 32.8 g/dL 31.2-35.0 RDW-SD (test code = 29526-6) 37.2 fL 38.5-51.6 L RDW-CV (test code = 788-0) 12.4 % 12.1-15.4 PLT (test code = 777-3) See_Comment [Automated messa ge] The system which generated this result transmitted reference range: 150 - 328 10*3/?L. The reference range was not used to interpret this result as normal/abnormal. MPV (test code = 29942-4) 10.3 fL 9.8-13.0 NRBC/100 WBC (test code = 4501038683) See_Comment [Automated [employer] ssage] The system which generated this result transmitted reference range: 0.0 - 10.0 /100 WBCs. The reference range was not used to interpret this result as normal/abnormal. NRBC x10^3 (test code = 5197101825) <0.01 See_Comment [Automated messa ge] The system which generated this result transmitted reference range: 10*3/?L. The reference range was not used to interpret this result as normal/abnormal. GRAN MAT (NEUT) % (test code = 770-8) 64.6 % IMM GRAN % (test code = 2201011591) 0.30 % LYMPH % (test code = 736-9) 22.8 % MONO % (test code = 5905-5) 8.0 % EOS % (test code = 713-8) 3.6 % BASO % (test code = 706-2) 0.7 % GRAN MAT x10^3(ANC) (test code = 9476918819) 4.82 10*3/uL 1.99-6.95 IMM GRAN x10^3 (test code = 9343911129) <0.03 0.00-0.06 LYMPH x10^3 (test code = 731-0) 1.70 10*3/uL 1.09-3.23 MONO x10^3 (test code = 742-7) 0.60 10*3/uL 0.36-1.02 EOS x10^3 (test code = 711-2) 0.27 10*3/uL 0.06-0.53 BASO x10^3 (test code = 704-7) 0.05 10*3/uL 0.01-0.09 Lab Interpretation (test code = 85718-6) Abnormal [facility] Notes Date/Time Note Provider Source 2023-12-28 13:01:50 zZChfR0P6lvbDUHjURr9M9A8II4zIKnssklv6/K2 PSCntGYY HH9dtslXR52PzMAs2489-39-11S75:01:50 Reason for Referral/Presenting Complaint:Preoperative cardiovascular examination (prior to AV fistula surgery).Preoperative cardiovascular faxed to Dr. Góemz.[facility] PIIcFax number: [phone] Team:[address] [place], [place] [address]Tel: Mte: [phone] signed by Sloane Easley MA at 12/28/2023 1:13 PM SUH58092-8Rnshgvejl encounter IlsnAU4340-50-69K81:13:03Telephone encounter NoteTXT1.2.840.406534.1.13.104.2.7.2.490567|2077 629174HGJqfafzake for patient fyhs42399-0YpgcAGXQZUZUECJXqcxziyfr C-CDA narrative textUT[address] RwbtFicvuehyrBzsioxfmaZZUB3975512271UOJAKODUMKKK ZIKTXOWHRG9220-39-36V03:13:031.2.840.168505.1.72 .3.15|1.2.840.795216.1.13.104.2.7.2.727879_20779 [address] [facility] 2023-10-12 15:00:11 MRa/fBzn/AjdTFz3UtopKU2/Kg4d3QcwH63iRYsj c2yx3swJ w1culxNoxUFpJJmG8418-87-74W71:00:11 Jeevan Ramírez Jr is a 53 year old male is calling to discuss assistance with payments. Please call him at [phone] signed by Kristyn Ospina at 10/12/2023 3:04 PM MRJ84455-4Vpjmpjgce encounter NxoxGQ8655-25-57V01:04:07Telephone encounter NoteTXT1.2.840.135392.1.13.104.2.7.2.989091|2013 487153NROcptdsshd for patient ayjz41191-9AmhjYTSLVDGLPTOGlziunrwl C-CDA narrative migl290467168Yxorm J [address] Love [id number] OODISVNDTO3798-76-35A65:04:071.2.840.643921.1.72 .3.15|1.2.840.665948.1.13.104.2.7.2.727879_ 96707 Kristyn Angel [facility] 2023-10-10 15:44:47 zyMOuuzRxs+GTuEXlcG3V7yHHcKPSNwYTNWAWq5V vXXu18Te jMafnWqqxvAp/Qoo2415-08-72R90:44:47 Called Mr. RamírezINDIRA we are no in network with his insurance. Self pay dinh is 136.50. 53165-4Iycmaqycq encounter IhrtDF3086-32-88S61:45:58Telephone encounter NoteTXT1.2.840.855412.1.13.104.2.7.2.039311|2010 365847OBKqrmvsevg for patient oili41780-0LviyAYXAWWQTHCNMqqlnctbn C-CDA narrative gcbu867242994Nkphrtc [address] [id number] UVCVOBBKKF3452-45-34X88:45:581.2.840.923586.1.72 .3.15|1.2.840.328738.1.13.104.2.7.2.727879_ Slime Ramires [facility] 2023-09-15 22:36:58 hTGtqBb9e8Dykm8nHRnggP2VpU+l1ataii+OOQu+ j0a3FKUY p7MnRkia/Oj6vnNG1660-53-25N31:36:58 Patient leaving AMA/without final disposition,Patients A&OX4, discussed risks of leaving against medical advice/final dispositon, Dr. Small aware and notified of patient's decision.Patient encouraged to seek medical attention for any new/prolonged/worsening of symptoms and stressed importance of follow up with a medical provider as soon as possible. AMA form explained, patient verbalized understanding and signature obtainedIV d'cd, dressing to site.Patient leaving ambulatory with steady gait, appears in no distress 84431-3Ducgfablm department IazcNQ2879-46-56Z57:38:13[facility] department NoteTXT1.2.840.796903.1.13.104.2.7.2.747842|1993 943095EGJfdgiaoxl for patient ghol81715-6LhfaUJUAZKVAVMMIvpqcndey C-CDA narrative vszj292482596Xomkse J Hoot RN[address] StreetKplrZktjvcabzCdkzcrepoHLOO2663483065GUOFDLLLFJTF XWQRQENEPL8464-72-39I71:38:131.2.840.795339.1.72 .3.15|1.2.840.202043.1.13.104.2.7.2.727879_19931 52321 Nesha Huber RN [facility] 2023-09-15 22:35:35 Y5jAmj9WE+6hpUJ9UCUJGtpOovhbMb7dNhF9JT+l ZAJz43cF RP2lmXVScWx3PdyO4873-70-79R96:35:35 Patient requested to speak to Singer SORIA.Patient changed his mind and does not want to be admitted to hospital at this time.Risks explained to patient and patient was able to verbalize risks and reports understanding.AMA form signed. IV line removed.Patient in stable condition when leaving the ER. Ambulatory with steady gait. [address]-2N[address] PordKL9553-43-11T19:36:38[facility] department NoteTXT1.2.840.823233.1.13.104.2.7.2.566347|1992 123293ZXIybgmkdcg for patient qigt38159-5PyglVLPQIAIDLVESoldwydrt C-CDA narrative jbwi918959162Ermsboox [place] RN[address] PtnoFzofcivzlUadabykhiAZDY1911170500PTRIRVJPZJMX PQVFHEHTBM6296-74-13A10:36:381.2.840.754513.1.72 .3.15|1.2.840.772800.1.13.104.2.7.2.727879_19921 08350 Ashley Champion RN [facility] 2023-09-15 22:09:53 AZa6VCwCoVnLs8S415VySFbfVDyTh1u8cgX/i1wm 6Yn+6wnb NmtFqhzyhgUt8exO6645-65-07D34:09:53 Nurse ReportReport given to JOAN Sawyer over the phone, no questions received. Chief complaint, assessment findings and medications were discussed. Plan of care discussed with patient, patient aware of plan.Patient in stable condition at time report was given,no distress. Vital signs reassessed.Patient pending EMS [place] product [place] [address]-7Plv[address]fbp[address] HbhoZY0007-20-54E96:10:33[facility] NoteTXT1.2.840.087022.1.13.104.2.7.2.688694|1992 216135XJZjkzwbyrj for patient ejff83561-7GskbLDVVFXYXIGKOnfhzeest C-CDA narrative text[id number] ANSMFUZUDV5908-51-76G82:10:331.2.840.026161.1.72 .3.15|1.2.840.420706.1.13.104.2.7.2.727879_ 00335 [facility] 2023-09-15 21:12:11 i1v8pxxEVSqh3XDD3mbXiaV6VCViZkM1KQWF3Jmd aNhROpdS +G/kd93jorSCnVSP3939-50-43T64:12:11 Patient given a sandwich and juice - tolerating well. 23251-2Cfiizhdfp department UsjbNU7123-01-90U04:12:31[facility] department NoteTXT1.2.840.554447.1.13.104.2.7.2.901232|1992 413571CFAvfirbjbf for patient npkk08451-5QrdtUKVKBDYFQPTLhjzaxnlt C-CDA narrative text[id number] ALJCTCOKOE7510-21-84X27:12:311.2.840.567424.1.72 .3.15|1.2.840.637951.1.13.104.2.7.2.727879_19921 88921 [facility] 2023-09-15 18:58:01 lEGWRlQeXh2D6GPsh0aBXslDY6h4FcrzVr/7LRcE AbigailChiquita 7hGEpCSDb4eFpS1I1928-28-66R01:58:01 Patient's name and verified with patient.Chief ComplaintPatient presents withHypertensionPNEUMONIAPatient ambulatory with steady gait with EC arrival.Patient is conscious and alert, with normal/unlabored breathing, and normal color/tone for ethnicity -oriented to name, time, place, and situation. GCS 15.Patient reports he has been feeling extremely fatigued and weak since this morning. Was at a couple of days ago where he was told he "had pneumonia" but left hospital AMA then .Patient denies nausea, vomiting, fever, chills, diarrhea, shortness of breath and chest pain.Past Medical History:Diagnosis DateDepressionDiabetes mellitusDiabetic retinopathyED (erectile dysfunction)HyperlipidemiaHypertensionLegally blindPatient non compliant with medications. Says he took his BP meds ~30min prior to ER arrival.No known allergies.Vitals obtained. Assessment performed.IV in place and patent.Placed on continuous spo2/cardiac monitoring, HR 118, sinus tachycardia on monitor.Bed low and locked, secured with two rails, call light within reach.Belongings at bedside. Patient [place] [address]-4Xpsqbrclj department UqztJU6900-09-09W03:59:43[facility] department NoteTXT1.2.840.051114.1.13.104.2.7.2.199387|1992 243830ERXrtwybfzp for patient yfup55488-6SateOGYSKOIKZRQXplikbcel C-CDA narrative textUT41 Daniels StreetLkalQdrthvucsFjnzlwvlkDLSA1529505018KVSSBYFVMYIM DCUUPLUEMS0252-41-47N93:59:431.2.840.095689.1.72 .3.15|1.2.840.455681.1.13.104.2.7.2.727879_ 82382 [facility] 2023-09-15 18:20:12 yuFsP/AphQEDtREesXrzY/EYO5xMNpETB15seQvq 7pIwXnDw t37osfxA8w8yrmeL0155-21-25W05:20:12 Patient states: "I was at [facility] 3 days ago and they diagnosed me with hypertension and pneumonia but one of the nurses gave me an attitude so I just walked out. I had been in the ER all day and they didn't feed me anything. I asked for something to eat and the nurse just about threw it at me."Reports he was admitted into the hospital but was holding in ER.Denies CP/ SOBReports he wants to checked out and get some prescriptions. 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 76308-1Eqjmvxslp department Triage jevdSO4235-31-36O98:25:32[facility] department Triage noteTXT1.2.840.020108.1.13.104.2.7.2.341157|1992 361835BVYjbmydjwo for patient wewj69289-5Batdezybn department NoteLNNARRATIVEFormatted C-CDA narrative textUT[address] FuwrOajgufinsQtlbnetrxLWOT4172468810HKRBZIWIPKQA BAIPTAEVTR8082-18-48Z43:25:321.2.840.933077.1.72 .3.15|1.2.840.951630.1.13.104.2.7.2.727879_19931 58373 [facility] 2023-09-15 18:00:00 VP5xxZ7R2sUxOpuzilAQM5qlftE0bHqGWc84vrJR K+To+NO8 6S8B64/dLj30AORQ3557-67-88F20:00:00 [facility] Emergency Department NotePatient Name: Jeevan Aguilar of : 1970 53 year old maleTreatment Room: TX2/CX5Yntemsj Record Number: [id number] Care Physician: Trung Atkinson AgliecoPatient Escorted by: Self [9]Mode of Arrival: Personal means [1]EMS Treatment Prior to ED Arrival:PROGRAM FACILITATOR treatment: NoneTravel and Exposure Screening:SymptomsDoes patient have any of these symptoms?: (not recorded)Exposure ScreeningHas patient had contact with someone with a communicable disease in the last month?: (not recorded)Diseases exposed to:: (not recorded)Is Patient ?: (not recorded)Exposure Date: (not recorded)Chief Complaint:Chief ComplaintPatient presents withHypertensionPNEUMONIAED Triage Andreina Kruse RN 09/15/2023 18:25Patient states: "I was at [facility] days ago and they diagnosed me with hypertension and pneumonia but one of the nurses gave me an attitude so I just walked out. I had been in the ER all day and they didn't feed me anything. I asked for something to eat and the nurse just about threw it at me."Reports he was admitted into the hospital but was holding in ER.Denies CP/ SOBReports he wants to checked out and get some prescriptions. 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 Was seen and evaluated at and left AMA. Reportedly had dx of PNA and HTN. He is non hypoxic. Presented tachycardic. Elevated BP.Past Medical History/Immunizations:Past Medical History:Diagnosis DateDepressionDiabetes mellitusDiabetic retinopathyED (erectile dysfunction)HyperlipidemiaHypertensionLegally blindTetanus received in last 5 years: NoChildhood immunizations: Lv-ne-oucdVychyfjlv:No Known AllergiesPast Social History:Tobacco UseFormer; 1 pack/day for 5.00 years; Types: CigarettesSmokeless Tobacco: Never used smokeless tobacco.Alcohol UseYes; 12.0 standard drinks of alcohol per week; 12 Cans of beer.Comments: was drinking daily, now a couple days a weekDrug UseYes; Marijuana, Cocaine.Comments: smoked majuriuana and did cocaine in 20s but not anymorePast Surgical History:Past Surgical History:Procedure Laterality DateDIRECT LARYNGOSCOPY N/A 01/08/2018Surgeon: Petey Looney MD; [facility] SURGERYINCISION AND DRAINAGE OF ABSCESS Left 01/10/2018Surgeon: Nitish Bajwa MD; [facility] DowntownReview of Systems:Review of SystemsConstitutional: Positive for fatigue. Negative for activity change, appetite change, chills, diaphoresis and fever.HENT: Negative for sore throat and voice change.Eyes: Negative for pain and visual disturbance.Respiratory: Positive for shortness of breath. Negative for cough and chest tightness.Cardiovascular: Negative for chest pain and leg swelling.Gastrointestinal: Negative for abdominal pain, blood in stool, constipation and diarrhea.Genitourinary: Negative for dysuria, urgency and difficulty urinating.Musculoskeletal: Negative for back pain.Skin: Negative for color change, rash and wound.Neurological: Negative for dizziness and headaches.Hematological: Does not bruise/bleed easily.Physical Exam:ED Triage Vitals [09/15/23 1823]Weight 71.7 kg (158 lb)Actual or estimated Estimated by patient/family reportHeight 1.727 m (5' 8")BP (!) 176/120Pulse 125Resp 16Temp 37.3 ?C (99.1 ?F)Temp source OralSpO2 100 %Measured on Room airPhysical ExamVitals and nursing note reviewed.Constitutional:Appearance: He is well-developed.HENT:Head: Normocephalic and atraumatic.Eyes:General: No scleral icterus.Conjunctiva/sclera: Conjunctivae normal.Pupils: Pupils are equal, round, and reactive to light.Neck:Vascular: No JVD.Cardiovascular:Rate and Rhythm: Normal rate and regular rhythm.Heart sounds: Normal heart sounds.Pulmonary:Effort: Pulmonary effort is normal.Breath sounds: Normal breath sounds. No stridor.Abdominal:General: Bowel sounds are normal.Palpations: Abdomen is soft.Musculoskeletal:General: Normal range of motion.Cervical back: Normal range of motion and neck supple.Skin:General: Skin is warm and dry.Neurological:Mental Status: He is alert and oriented to person, place, and time.Psychiatric:Behavior: Behavior normal.Thought Content: Thought content normal.Radiology:XR CHEST 1 VWFinal ResultORDERING PHYSICIAN: GRADY SINGERCLINICAL HISTORY:shortness of breathTECHNIQUE:AP chest radiograph.COMPARISON:None.FINDINGS:No focal pulmonary consolidation, pleural effusion or pneumothorax. Heartsize within normal limits. Visualized bones are unremarkable.IMPRESSION1. No acute pulmonary abnormality.RL: 6600End of report. Lab Results:Lab ResultsCBC WITH DIFF - AbnormalResult Value Ref RangeWBC 5.92 4.20 - 10.70 10*3/?LRBC 4.05 (*) 4.26 - 5.52 10*6/?LHGB 11.1 (*) 12.2 - 16.4 g/dLHCT 33.3 (*) 38.4 - 49.3 %MCV 82.2 81.7 - 95.6 fLMCH 27.4 26.1 - 32.7 pgMCHC 33.3 31.2 - 35.0 g/dLRDW-SD 37.3 (*) 38.5 - 51.6 fLRDW-CV 12.5 12.1 - 15.4 %PLT 244 150 - 328 10*3/?LMPV 10.5 9.8 - 13.0 fLNRBC/100 WBC 0.0 0.0 - 10.0 /100 WBCsNRBC x10^3 <0.01 10*3/?LGRAN MAT (NEUT) % 67.7 %IMM GRAN % 0.20 %LYMPH % 21.6 %MONO % 8.3 %EOS % 1.5 %BASO % 0.7 %GRAN MAT x10^3(ANC) 4.01 1.99 - 6.95 10*3/uLIMM GRAN x10^3 <0.03 0.00 - 0.06 10*3/uLLYMPH x10^3 1.28 1.09 - 3.23 10*3/uLMONO x10^3 0.49 0.36 - 1.02 10*3/uLEOS x10^3 0.09 0.06 - 0.53 10*3/uLBASO x10^3 0.04 0.01 - 0.09 10*3/uLCOMP. METABOLIC PANEL (23014) - AbnormalNA 138 135 - 145 mmol/LK 4.5 3.5 - 5.0 mmol/LCL 107 98 - 108 mmol/LCO2 TOTAL 14 (*) 23 - 31 mmol/LAGAP 17 (*) 2 - 16BUN 59 (*) 7 - 23 mg/dLGLUCOSE 134 (*) 70 - 110 mg/dLCREATININE 7.17 (*) 0.60 - 1.25 mg/dLTOTAL BILI 0.6 0.1 - 1.1 mg/dLCALCIUM 9.2 8.6 - 10.6 mg/Xochilt PROTEIN 8.4 (*) 6.3 - 8.2 g/dLALBUMIN 4.2 3.5 - 5.0 g/dLALK PHOS 86 34 - 122 U/LALTv 13 5 - 50 U/LAST(SGOT) 20 13 - 40 U/LeGFR 8.5 mL/min/1.97x2J-VBUNFBYG PRO-BNP - AbnormalNT-proBNP 8,290 (*) <=125 pg/mLURINALYSIS - AbnormalAPPEARANCE Clear ClearCOLOR Yellow YellowPH 5.0 4.8 - 8.0SP GRAVITY 1.011 1.003 - 1.030GLU U QUAL 50 mg/dL (*) NormalBLOOD 1+ (*) NegativeKETONES 5 mg/dL (*) NegativePROTEIN 500 mg/dL (*) NegativeUROBILIN Normal NormalBILIRUBIN Negative NegativeNITRITE Negative NegativeLEUK JAQUI Negative NegativeRBC/HPF 2 0 - 3 HPFWBC/HPF 1 0 - 5 HPFBACTERIA Few (*) NegativeSQ EPITH <1 HPFSPERM <1 <=1 HPFPOCT GLUCOSE (AUTOMATED) - AbnormalPOCT GLU 131 (*) 70 - 110 mg/dLTROPONIN I - NormalTROPONIN I 0.028 <=0.034 ng/mLRAPID INFLUENZA A/B - NormalRapid Influenza A Negative NegativeRapid Influenza B Negative NegativeCOVID-19 (ID NOW RAPID TESTING) - KmhfeuGHCX-AxB-8 Rapid ID NOW Not Detected Not DetectedLACTIC ACID WHOLE BLOOD - NormalLACTIC ACID 1.40 0.50 - 2.20 mmol/LEKG:If EKG completed, see Procedure Note.Orders and Treatments:Orders Placed This EncounterProceduresXR CHEST 1 VWCbc with DiffComp. Metabolic Panel (87689)N-Terminal Pro-BnpTroponin IUrinalysisRAPID INFLUENZA A/BCOVID-19 (ID NOW TESTING)Lactic Acid Whole BloodLactic Acid Whole BloodPOCT GLUCOSE (AUTOMATED)Lab Only COVID InterpretationOrders Placed This EncounterMedicationshydralAZINE (APRESOLINE) injection 10 mgFirst Provider Eval:ED EventsNoneED COURSEED Course as of 09/15/232236Fri Sep 15 CREATININE(!): 7.17 [PS]2004 BUN(!): 59 [PS]2004 NT-proBNP(!): 8,290 [PS]ED Course User Index[PS] Grady Small, RITESHiagnosis/Impression as of 09/15/232236Secondary hypertensionAcute renal failure, unspecified acute renal failure typeCongestive heart failure, unspecified HF chronicity, unspecified heart failure typeProcedures:ProceduresMDM:Medical Decision MakingJeevan Ramírez Jr is a 53 year old male with new onset renal failure. Block Piler 7 from 1.9. BNP elevated 8300. Tachycardic. No hypoxia. Accelerated hypertension. Coordinated admission at [facility]. Prior to ambulance arriving patient declined admission after prolonged conversation regarding severity of illness and necessity for admission. Patient concerned about his son travelling to see him and he believes that he feels better and is ok to go home. Explained that his feeling better is not conducive with his medical needs. He continued to decline admission. Unfortunately he decided to leave A.The patient is clinically not intoxicated, free from distracting pain, appears to have intact insight, judgment and reason and in my medical opinion has the capacity to make decisions. The patient is also not under any duress to leave the hospital. I have voiced my concerns for the patient's health given that a full evaluation and treatment had not occurred. I have discussed the need for continued evaluation to determine if their symptoms are caused by a condition that present risk of or morbidity. Risks including but not limited to , permanent disability, prolonged hospitalization, prolonged illness, were discussed. I tried offering alternative options in hopes that the patient might be amenable to partial evaluation and treatment which would be medically beneficial to the patient, though the patient declined my options and insisted on leaving. Because I have been unable to convince the patient to stay, I answered all of their questions about their condition and asked them to return to the ED as soon as possible to complete their evaluation, especially if their symptoms worsen or do not improve. I emphasized that leaving against medical advice does not preclude returning here for further evaluation. I asked the patient to return if they change their mind about the further evaluation and treatment. I strongly encouraged the patient to return to this Emergency Department or any Emergency Department at any time, particularly with worsening symptoms.Problems Addressed:Acute renal failure, unspecified acute renal failure type: acute illness or injuryCongestive heart failure, unspecified HF chronicity, unspecified heart failure type: acute illness or injurySecondary hypertension: chronic illness or injury with exacerbation, progression, or side effects of treatmentAmount and/or Complexity of Data ReviewedLabs: ordered. Decision-making details documented in ED Course.Radiology: ordered.ECG/medicine tests: ordered and independent interpretation performed.Details: 18:47 Rate 120. Sinus Tachycardia. No dynamic ST changes.RiskPrescription drug management.Flowsheet Documentation:Scoring Tools:No data recordedDisposition/Condition:ED DispositionED DispositionAMAConditionStableCommentPatient left AMA - did not want to transfer/be admittedDischarge Medications:Patient's MedicationsSTART taking these medicationsNo medications on fileCONTINUE taking these medications which have NOT CHANGEDATORVASTATIN 20 MG TABLET Take 20 mg by mouth at bedtime.BIMATOPROST (LUMIGAN) 0.01 % OPHTHALMIC DROPS Place 1 Drop in each eye daily.BLOOD SUGAR DIAGNOSTIC STRIP Check sugars 2-3 times a day. Dx Code E11.9. Brand per insurance. Patient has uncontrolled diabetes and needs to check sugars at least 2 times a day. ACCU-CHEK- same brand as meterBLOOD-GLUCOSE METER KIT Check sugars 2-3 times a day. Dx Code E11.9. Brand per insurance. Patient has uncontrolled diabetes and needs to check sugars at least 2 times a day. ACCU-CHEKDOXAZOSIN 2 MG TABLET Take 1 tablet by mouth at bedtime.ERGOCALCIFEROL, VITAMIN D2, (VITAMIN D2) 1,250 MCG (50,000 UNIT) CAPSULE Take 1 capsule by mouth weekly.INSULIN GLARGINE (LANTUS U-100 INSULIN) 100 UNIT/ML INJECTION inject 20 Units under the skin daily.INSULIN REGULAR HUMAN (NOVOLIN R FLEXPEN) 100 UNIT/ML (3 ML) INPN Check blood sugars fasting before meals and 2 hours after 1 meal of the day. If sugars are 180-200 take 6 units of insulin, 201-250 take 8 units, 251-300 take 10 units, 301-350 take 12 units, 351-400 take 14 units, 401-450 take 16 units, 451-500 take 18 units, if >500 take 20 units, recheck in 2 hours. If still high call the clinic.INSULIN SYR/NDL U100 HALF ADRI 0.3 ML 30 GAUGE X 1/2" SYRG 1 Syringe 2 (two) times daily.LANCETS (FREESTYLE LANCETS) 28 GAUGE [facility] [place] USE ONE LANCET TO CHECK BLOOD GLUCOSE 2 TO 3 TIMES A DAYLISINOPRIL-HYDROCHLOROTHIAZIDE 20-25 MG PER TABLET Take 1 tablet by mouth daily.METFORMIN ER 500 MG 24 HR TABLET Take 2 tablets by mouth 2 (two) times daily.PREDNISOLONE ACETATE 1 % OPHTHALMIC SUSPENSION DROPS Place 1 Drop in both eyes daily.SILDENAFIL (VIAGRA) 100 MG TABLET Take 1 tablet by mouth daily.START taking Modified Medications as PrescribedNo medications on fileSTOP taking these medicationsNo medications on fileFollow-up:Contact information for follow-Trung Brown, DOSpecialty: IM-NEPHROLOGYRelationship: PCP - [id number] [place] [id number]: [phone] signed by:Grady Small [id number] Emergency department [id number] Emergency department NoteTXT1..[id number] for patient [id number] department NoteLNNARRATIVEFormatted C-CDA narrative textUTMBPRESBYTERIAN SANTA FE MEDICAL [facility]ENTER - [address] [id number] [id number] [facility]
[2024-01-19] MEDS ORDERED: methocarbamoL 500 MG TAB ONE (10:51)
[2024-01-19] MEDS ORDERED: KETOROLAC 30 MG/ML INJ ONE (10:52)
[2024-01-19] MEDS ORDERED: LIDOCAINE 4% PATCH ONE (10:52)
--- NOTE | 2024-01-19 12:11 | RAD REPORT ---
EXAM DESCRIPTION: RADChest Single View01/19/2024 11:44 am CLINICAL HISTORY: CHEST PAIN COMPARISON: Chest Single View dated 09/11/2023; Chest Single View dated 06/13/2020; Chest Single View d ated 07/11/2019; Chest Single View dated 03/11/2019 TECHNIQUE: Portable AP view of the chest. FINDINGS: The lungs are clear. No pneumothorax or effusion. The cardiomediastinal contours are unre markable. IMPRESSION: No acute cardiopulmonary process.
--- NOTE | 2024-01-19 12:12 | RAD REPORT ---
EXAM DESCRIPTION: RAD - Thoracic Spine Ap/Lat - 01/19/2024 11:44 am CLINICAL HISTORY: PAIN COMPARISON: No comparisons TECHNIQUE: Thoracic spine, 2 views. FINDINGS: Thoracic vertebral bodies are normal in height and alignment. There are no acute or destru ctive bony processes see. No paraspinal masses are identified. No disc space narrowing. IMPRESSION: Negative thoracic spine examination.
--- NOTE | 2024-01-19 12:12 | RAD REPORT ---
EXAM DESCRIPTION: Scapula Right - 01/19/2024 11:44 am CLINICAL HISTORY: PAIN COMPARISON: No comparisons TECHNIQUE: Internal and external rotation views of the right shoulder were obtained. FINDINGS: There is no fracture or dislocation. AC joint mild degenerative changes. No acute or suspi cious findings. IMPRESSION: No acute osseus abnormality. Mild AC joint degenerative changes.
--- NOTE | 2024-01-19 12:42 | EDPHYS ---
Physician Documentation [facility] Name: Amor Ramírez Jr Age: 53 yrs Sex: Male : 1970 Arrival Date: 01/19/2024 Time: 10:21 Bed 16 Private MD: ED Physician Jhonny Todd HPI: 01/18 10:43 This 53 yrs old Male presents to ER via Ambulatory with complaints of Back ec2 Pain - shoulder blade pain. 10:43 Patient arrives today for evaluation of right mid back pain. Patient complain of right ec2 mid back pain onset of last night. Patient reports the pain has been intermittent, worsened with movement. Patient reports no falls injuries or trauma. Patient denies chest pain or difficulty breathing. Patient reports no urinary problems. Patient reports history of hypertension and hyperlipidemia. . Historical: - Allergies: 10:38 NKDA; hb - Home Meds: 10:38 Novolin N 100 unit/mL Sub-Q susp [Active]; hb - PMHx: 10:38 Diabetes - IDDM; Hypercholesterolemia; Hypertension; TIA; hb - Immunization history:: Adult Immunizations up to date. - Infectious Disease History:: Denies. - Social history:: Smoking status: Patient reports the use of cigarette tobacco products. ROS: 10:43 Constitutional: as per hpi ec2 Exam: 10:43 Constitutional: GEN: NAD Head: atraumatic Eyes: EOMI Ears: External ears are ec2 normal. CV: regular rate LUNGS: no respiratory distress ABD: non-distended SKIN: no evidence of rashes MSK: Reproducible right mid back TTP, no deformities, no crepitus, no ecchymosis, no rash NEURO: moves all extremities equally Vital Signs: 10:37 BP 160 / 94; Pulse 90; Resp 16; Temp 98.3(O); Pulse Ox 100% on R/A; Weight 68.95 kg; hb Height 5 ft. 8 in. ; Pain 10/10; 12:00 BP 145 / 84; Pulse 80; Resp 16 S; Pulse Ox 99% on R/A; aa5 10:37 Body Mass Index 23.11 (68.95 kg, 172.72 cm) hb 10:37 Pain Scale: Adult hb MDM: 10:30 Patient medically screened. ec2 10:43 Data reviewed: vital signs. ED course: Patient arrives today for evaluation of right ec2 mid back pain. Semination remarkable for MSK findings as above. Will obtain radiographs to evaluate for bony injury. Suspect musculoskeletal pain. Additionally considered other process such as ACS, doubt ACS or PE or dissection. Patient without any chest pain or difficulty breathing.. 10:44 ED course: Will also obtain EKG and chest x-ray due to possible atypical ACS however ec2 low suspicion for this given HPI. 11:04 ED course: EKG independently reviewed and interpreted by me, shows normal sinus rhythm, ec2 rate of 83, no acute ST segment elevations, intervals are nonconcerning.. 12:42 ED course: Radiographs show no bony injury. Will discharge home. Return precautions ec2 given.. 01/18 10:42 Order name: Scapula Right XRAY; Complete Time: 12:40 ec2 01/18 10:42 Order name: Spine Thoracic Ap/Lat XRAY; Complete Time: 12:40 ec2 01/18 10:44 Order name: CXR XRAY; Complete Time: 12:40 ec2 01/18 10:44 Order name: EKG - Nurse/Tech; Complete Time: 10:58 ec2 Administered Medications: 10:58 Drug: Ketorolac IM 30 mg IM once Route: IM; Site: right deltoid; aa5 11:20 Follow up: Response: No adverse reaction aa5 10:59 Drug: Methocarbamol PO 500 mg PO once Route: PO; aa5 11:20 Follow up: Response: No adverse reaction aa5 10:59 Drug: Lidoderm Topical Patch 5 % (700 mg/patch) 1 patches Topical once; leave on for 12 aa5 hours; cover most painful area; may cut into smaller pieces Route: Topical; Site: affected area; Disposition Summary: 01/19/24 12:42 Discharge Ordered Notes: Location: Home ec2 Condition: Stable ec2 Diagnosis - Back Pain ec2 Followup: ec2 - With: Private Physician - When: - Reason: Re-evaluation by your physician Discharge Instructions: - Discharge Summary Sheet ec2 - Acute Back Pain, Adult ec2 Forms: - Medication Reconciliation Form ec2 - Antibiotic Education ec2 - Prescription Opioid Use ec2 - Patient Portal Instructions ec2 - Leadership Thank You Letter ec2 Prescriptions: - methocarbamol 500 mg Oral tablet - take 2 tablets ORAL route 4 times per day; 20 tablet; Refills: 0, Product ec2 Selection Permitted Signatures: Dispatcher [employer] Nupur Barajas RN RN aa5 Verna Bhat RN RN hb Jhonny Todd MD MD ec2
--- NOTE | 2024-01-19 12:42 | ER ---
Nurse's Notes [facility] Name: Amor Ramírez Jr Age: 53 yrs Sex: Male : 1970 Arrival Date: 01/19/2024 Time: 10:21 Bed 16 Private MD: Diagnosis: Back Pain Presentation: 01/18 10:37 Chief complaint: Right upper back pain x 2 days. Coronavirus screen: At this time, the hb client does not indicate any symptoms associated with coronavirus-19. Ebola Screen: No symptoms or risks identified at this time. Initial Sepsis Screen: Does the patient meet any 2 criteria? No. Patient's initial sepsis screen is negative. Does the patient have a suspected source of infection? No. Patient's initial sepsis screen is negative. Risk Assessment: Do you want to hurt yourself or someone else? Patient reports no desire to harm self or others. Onset of symptoms was January 18, 2024. 10:37 Method Of Arrival: Ambulatory hb 10:37 Acuity: YADIEL 3 hb Triage Assessment: 10:39 General: Appears in no apparent distress. Behavior is calm, cooperative. Pain: Pain hb currently is 10 out of 10 on a pain scale. Neuro: Level of Consciousness is awake, alert, obeys commands, Oriented to person, place, time, situation. Cardiovascular: Patient's skin is warm and dry. Respiratory: Respiratory effort is even, unlabored, Respiratory pattern is regular, symmetrical. Musculoskeletal: Reports pain in right scapular area and right subscapular area. Historical: - Allergies: 10:38 NKDA; hb - Home Meds: 10:38 Novolin N 100 unit/mL Sub-Q susp [Active]; hb - PMHx: 10:38 Diabetes - IDDM; Hypercholesterolemia; Hypertension; TIA; hb - Immunization history:: Adult Immunizations up to date. - Infectious Disease History:: Denies. - Social history:: Smoking status: Patient reports the use of cigarette tobacco products. Screenin:40 [facility] ED Fall Risk Assessment (Adult) History of falling in the last 3 months, aa5 including since admission No falls in past 3 months (0 pts) Confusion or Disorientation No (0 pts) Intoxicated or Sedated No (0 pts) Impaired Gait No (0 pts) Mobility Assist Device Used No (0 pt) Altered Elimination No (0 pt) Score/Fall Risk Level 0 - 2 = Low Risk Oriented to surroundings, Maintained a safe environment, Educated pt \T\ family on fall prevention, incl call for assistance when getting out of bed. Abuse screen: Denies threats or abuse. Nutritional screening: No deficits noted. Tuberculosis screening: No symptoms or risk factors identified. Assessment: 10:40 General: Appears uncomfortable, Behavior is calm, cooperative. Pain: Complains of pain aa5 in right subscapular area Pain currently is 10 out of 10 on a pain scale. Quality of pain is described as sharp, Is continuous, Aggravated by increased activity, repositioning. Neuro: Level of Consciousness is awake, alert, obeys commands, Oriented to person, place, time, situation. Cardiovascular: Patient's skin is warm and dry. Respiratory: Airway is patent Respiratory effort is even, unlabored, Respiratory pattern is regular, symmetrical. GI: No signs and/or symptoms were reported involving the gastrointestinal system. : No signs and/or symptoms were reported regarding the genitourinary system. EENT: No signs and/or symptoms were reported regarding the EENT system. Derm: Skin is dry, Skin is normal, Skin temperature is warm. Musculoskeletal: Range of motion: intact in all extremities. 11:30 Reassessment: Pt sleeping. . aa5 13:10 Reassessment: Patient is alert, oriented x 3, equal unlabored respirations, skin aa5 warm/dry/pink. Patient states feeling better. Vital Signs: 10:37 BP 160 / 94; Pulse 90; Resp 16; Temp 98.3(O); Pulse Ox 100% on R/A; Weight 68.95 kg; hb Height 5 ft. 8 in. ; Pain 10/10; 12:00 BP 145 / 84; Pulse 80; Resp 16 S; Pulse Ox 99% on R/A; aa5 10:37 Body Mass Index 23.11 (68.95 kg, 172.72 cm) hb 10:37 Pain Scale: Adult hb ED Course: 10:26 Patient arrived in ED. im 10:29 Jhonny Todd MD is Attending Physician. ec2 10:32 Nupur Fernandes, RN is Primary Nurse. aa5 10:38 Triage completed. hb 10:39 Arm band placed on. hb 10:40 Patient has correct armband on for positive identification. Bed in low position. Call aa5 light in reach. Side rails up X2. Adult w/ patient. 10:40 No provider procedures requiring assistance completed. aa5 11:46 Scapula Right XRAY In Process Unspecified. EDMS 11:46 Spine Thoracic Ap/Lat XRAY In Process Unspecified. EDMS 11:46 CXR XRAY In Process Unspecified. EDMS 13:00 Patient did not have IV access during this emergency room visit. aa5 Administered Medications: 10:58 Drug: Ketorolac IM 30 mg IM once Route: IM; Site: right deltoid; aa5 11:20 Follow up: Response: No adverse reaction aa5 10:59 Drug: Methocarbamol PO 500 mg PO once Route: PO; aa5 11:20 Follow up: Response: No adverse reaction aa5 10:59 Drug: Lidoderm Topical Patch 5 % (700 mg/patch) 1 patches Topical once; leave on for 12 aa5 hours; cover most painful area; may cut into smaller pieces Route: Topical; Site: affected area; Medication: 11:00 VIS not applicable for this client. aa5 Outcome: 12:42 Discharge ordered by . ec2 13:10 Discharged to home via wheelchair, with significant other, aa5 13:10 Condition: improved 13:10 Discharge instructions given to patient, significant other, Instructed on discharge instructions, follow up and referral plans. medication usage, Demonstrated understanding of instructions, follow-up care, medications, Prescriptions given X 1, 13:22 Patient left the ED. aa5 Signatures: Dispatcher [employer] Nupur Barajas RN RN aa5 Verna Bhat RN RN Marysol Vazquez Edwin, MD MD ec2 Corrections: (The following items were deleted from the chart) 15:47 12:00 Patient did not have IV access during this emergency room visit. aa5 aa5
[2024-01-19 13:52] VITALS: BP 160/94; TEMP 98.3; O2SAT 100
--- NOTE | 2024-01-22 13:27 | EKG ---
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
== END 2024-01-19 13:22 | disposition home or self-care (01) ==
LOC: ER 10:21
DX: M54.9 Dorsalgia, unspecified (principal); Z72.0 Tobacco use
CPT/HCPCS: 71045; 72070; 73010; 96372; 99284; J2001; 93005

== ENCOUNTER 2024-02-07 17:10 | Emergency (ER) | payer OTHER ==
--- OUTSIDE RECORDS SUMMARY | 2024-02-07 17:19 | XMS REPORT | Continuity of Care Document ---
Author Name Unknown Address [address] [facility] [address] [place] [address] [facility] thconnect Address [address] [facility] [address] [place] [address] Care Team Providers Care Drug Worker Name Role Phone Trung Crawford DO Primary Care Physician [phone] MICHELLE MOSCOSO Attending Clinician Unavailable Yunier Barrow Attending Clinician Unavailable Rahul Jasmine Attending Clinician Unavailable LIANA SMITH Attending Clinician Unavailable Michelle Moscoso MD Attending Clinician [phone] DARRION WILKES Attending Clinician Unavailable DARRION WILKES Attending Clinician Unavailable 2, [facility] Attending Clinician Unavailable Trung Crawford DO Attending Clinician [phone] TRUNG CRAWFORD Attending Clinician Unavailable Doctor Unassigned, [place] Attending Clinician U Liana Lloyd MD Attending Clinician [phone] LUZMARIA MCCARTNEY Attending Clinician Unavailable LOREN YUAN Attending Clinician Unavailable LOREN YUAN Attending Clinician Unavailable Deanne Gibbons Attending Clinician GRADY THRASHER Attending Clinician Unavailable Grady Thrasher DO Attending Clinician [phone] Chip Mcbride DO Attending Clinician [phone] GAYLORD_S Attending Clinician Unavailable Treasure Hernandez Attending Clinician [phone] Deshazo_T Attending Clinician Unavailable BERENICE ASHER Attending Clinician Unavailab Berenice Dooley DO Attending Clinician [phone] Carmen Akhtar MD Attending Clinician [phone] Melony Corado Attending Clinician DAVIDSON TORRES Attending Clinician Unavailable Davidson Torres MD Attending Clinician [phone] CARMEN AKHTAR Attending Clinician Unava ilable REENA ASTORGA Attending Clinician Unavailable Enoc Vega Attending Clinician [phone] Fortunato Luna Attending Clinician [phone] FORTUNATO HEDRICK Attending Clinician Unavailable RUSLAN POSADAS Attending Clinician Unav ailable WILLIAM HERMAN Attending Clinician Unavaila WILLIAM Reyes Attending Clinician Unavaila BENNETT Gonzalez Attending Clinician Unavailable TON ARAGON Attending Clinician UnavailSHELBY Currie Attending Clinician Unavailable MICHELLE MOSCOSO Admitting Clinician Unavailable Michelle Moscoso MD Admitting Clinician [phone] CHIP MCBRIDE Admitting Clinician Unavailable Chip Mcbride DO Admitting Clinician [phone] GAYLORD_S Admitting Clinician Unavailable Deshazo_T Admitting Clinician Unavailable Payers Payer Name Policy Type Policy Number Effective Date Expirati on Date Source [facility] [employer] [place] [id number] 00:00:00 KENROY CRAIG [id number] 2019 00:00:00 [employer] MEDICARE ADVANTAGE PLAN [id number] 2021 00:00:00 [employer] (MEDICARE REPLACEMENT HMO) [id number] 2020 00:00:00 COMMERCIAL NON-CONTRACT GENERIC [id number] 2020 00:00:00 MEDICARE PART A \\T\\ B [id number] 2021 00:00:00 Problems Condition Name Condition Details Condition Category Status Onset Date Resolution Date Last Treatment Date Treating Clinician Comments Source CKD (chronic kidney disease) stage 5, GFR less than 15 ml/min CKD (chronic kidney disease) stage 5, GFR less than 15 ml/min Disease Active 5 00:00: 00 [facility] Encounter for fitting and adjustment of dialysis catheter Encounter for fitting and adjustment of dialysis catheter Disease Active 01-21 00:00: 00 [facility] Localized edema due to fluid overload Localized edema due to fluid overload Disease Active 01-17 00:00: 00 [facility] Insomnia due to medical condition Insomnia due to medical condition Disease Active 01-13 00:00: 00 [facility] Shortness of breath Shortness of breath Disease Active 12-27 00:00: 00 [facility] Preoperati ve cardiovasc ular examinatio n Preoperati ve cardiovasc ular examinatio n Disease Active 18 00:00: 00 [facility] End stage renal disease End stage renal disease Disease Active 18 00:00: 00 [facility] Coronary atheroscle rosis of [place] coronary artery Coronary atheroscle rosis of [place] coronary artery Disease Active 2- 00:00: 00 [facility] Anemia of chronic disease Anemia of chronic disease Disease Active 18 00:00: 00 [facility] Stage 5 chronic kidney disease Stage 5 chronic kidney disease Disease Recurre nce 1-18 00:00: 00 [facility] Chronic metabolic acidosis Chronic metabolic acidosis Disease Active -18 00:00: 00 [facility] Nephrogeno us proteinuri a Nephrogeno us proteinuri a Disease Active 1-18 00:00: 00 [facility] Allergic rhinitis due to pollen Allergic rhinitis due to pollen Disease Active 2022-09 00:00: 00 [facility] Erectile dysfunctio n due to diabetes mellitus Erectile dysfunctio n due to diabetes mellitus Disease Active 03-20 00:00: 00 [facility] Ex-cigaret te smoker Ex-cigaret te smoker Disease Active 7 00:00: 00 [facility] Excessive daytime sleepiness Excessive daytime sleepiness Disease Active 30 00:00: 00 [facility] Chronic arterial ischemic stroke Chronic arterial ischemic stroke Disease Active 03-04 00:00: 00 [facility] Essential hypertensi on Essential hypertensi on Disease Active 03-04 00:00: 00 [facility] Neuropathy of both feet Neuropathy of both feet Disease Active 24 00:00: 00 [facility] Neuropathy of both feet Neuropathy of both feet Disease Active 24 00:00: 00 [facility] Legal blindness Legal blindness Disease Active 01-22 00:00: 00 [facility] Hypertensi on Hypertensi on Disease Active 14 00:00: 00 [facility] Erectile dysfunctio n Erectile dysfunctio n Disease Active 01-22 00:00: 00 [facility] Constipati on Constipati on Disease Active 14 00:00: 00 [facility] Mixed anxiety and depressive disorder Mixed anxiety and depressive disorder Disease Active 14 00:00: 00 [facility] Night sweats Night sweats Disease Active 14 00:00: 00 [facility] 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, unspecifie d eye 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, unspecifie d eye Disease Active 14 00:00: 00 [facility] Abnormal finding on CT scan Abnormal finding on CT scan Disease Active 2019-09 0-12 00:00: 00 [facility] Stroke Stroke Disease Active 2019-09 0 00:00: 00 [facility] Uncontroll ed type 2 diabetes mellitus with hyperglyce thalia Uncontroll ed type 2 diabetes mellitus with hyperglyce thalia Disease Active 01-13 00:00: 00 [facility] [id number] Moderate major depression , single episode Problem [facility] [id number] Type 2 diabetes mellitus with other diabetic kidney complicati on Problem [facility] [id number] Type 2 diabetes mellitus with diabetic chronic kidney disease Problem [facility] [id number] Chronic kidney disease, stage 3 unspecifie d Problem [facility] Depression Depression Problem [facility] [id number] Current use of insulin Problem [facility] Vitamin D deficiency Vitamin D deficiency Problem [facility] Mixed hyperlipid emia Mixed hyperlipid emia Problem [facility] Anxiety Anxiety Problem [facility] Hyperglyce thalia due to type 2 diabetes mellitus Uncontroll ed type 2 diabetes mellitus with hyperglyce thalia Problem [facility] Allergies, Adverse Reactions, Alerts Allergy Name Allergy Type Status Severity Reaction(s) Onset Date Inactive Date Treating Clinician Comments Source Amlodipi ne Propensi ty to adverse reaction s Active Diarrhea 2020-09 00:00: 00 severe [facility] AMLODIPI NE DRUG INGREDI Active Diarrhea 2020-09 00:00: 00 [facility] NO KNOWN ALLERGIE S Drug Class Active [facility] Social History Social Habit Start Date Stop Date Quantity Comments Source Sex Assigned At [facility] History of tobacco use Cigarette Smoker [facility] History SDOH Alcohol Frequency [facility] History SDOH Alcohol Std Drinks [facility] History SDOH Alcohol Binge [facility] Cigarettes smoked current (pack per day) - Reported 2024-02-01 00:00:00 2024-02-01 00:00:00 [facility] Cigarette pack-years 2024-02-01 00:00:00 2024-02-01 00:00:00 [facility] Tobacco use and exposure 2024-02-01 00:00:00 2024-02-01 00:00:00 Smokeless tobacco non-user [facility] Alcoholic beverage intake 2024-02-01 00:00:00 2024-02-01 00:00:00 1.71 /d [facility] Alcohol intake 2023-12-28 00:00:00 2023-12-28 00:00:00 1.71 /d [facility] History of Social function 2023-12-28 00:00:00 2023-12-28 00:00:00 [facility] Exposure to SARS-CoV-2 (event) 2022-10-12 00:00:00 2022-10-22 14:30:00 Not sure [facility] Alcohol Comment 2021-03-04 00:00:00 2021-03-04 00:00:00 was drinking daily, now a couple days a week [facility] Education - What is the highest level of school you have completed or the highest degree you have received? 2020-12-15 00:00:00 2020-12-15 00:00:00 8th grade [facility] Smoking Status Start Date Stop Date Source Occasional tobacco smoker 2024-02-01 00:00:00 [facility] Ex-smoker 2023-12-28 00:00:00 2023-12-28 00:00:00 [facility] Current Smoker 2022-11-22 00:00:00 [facility] Medications Ordered Medication Name Filled Medication Name Start Date Stop Date Current Medication? Ordering Clinician Indication Dosage Frequency Signature (SIG) Comments Components Source HYDROcodone -acetaminop hen (NORCO) 10-325 mg tablet 1 tablet 02-01 15:45: 57 02-01 20:49 :19 No [facility]tbl[facility]DR[facility]one -acetaminop hen (NORCO 5) 5-325 mg tablet 1 tablet 02-01 15:45: 57 02-01 16:24 :00 No 1{tbl} 1 tablet, Oral, PRN, 1 dose, Starting on Mon02/02/24 at 1045, Until Mon02/02/24 at 1124, Routine, Pain (scale 4-6), DSU Recovery [facility] acetaminoph en (TYLENOL) tablet 650 mg 02-01 15:45: 57 02-01 20:49 :19 No 650mg [facility] bupivacaine (preserv free) (SENSORCAIN E MPF) 0.25 % (2.5 mg/mL) 30 mL, lidocaine-e pinephrine (XYLOCAINE W/EPINEPHRI NE) 1 %-1:200,000 30 mL 02-01 15:05: 00 02-01 20:49 :19 No PRN, Starting on Mon02/02/24 at 1005, Intra-op [facility] NaCl 0.9% (NS) IV infusion 02-01 15:05: 00 02-01 20:49 :19 No CONTINUOUS PRN, Starting on Mon02/02/24 at 1005, Until Mon02/02/24 at 1549, Routine, Intra-op [facility] heparin lock flush (HEPARIN LOCKFLUSH(P ORCINE)(PF) ) 100 unit/mL injection 02-01 15:02: 00 02-01 20:49 :19 No PRN, Starting on Mon02/02/24 at 1002, Until Mon02/02/24 at 1549, Routine, Intra-op [facility] NaCl 0.9% (NS) IV infusion 1,000 mL 02-01 14:30: 00 02-01 20:49 :19 No 1000mL at 42 mL/hr, IV Infusion, CONTINUOUS , Starting on Mon02/02/24 at 0930, Until Mon02/02/24 at 1549, Routine, DSU Pre-op [facility] HYDROcodone -acetaminop hen 5-325 mg tablet 02-01 00:00: 00 02-09 04:59 :00 Yes [id number] 1{tbl} Take 1 tablet by mouth every 6 (six) hours as needed for Pain (scale 7-10) for up to 7 days. Indication s: acute pain [facility] methocarbam oL 500 mg tablet 5-10 00:00: 00 Yes 1000mg Take 2 tablets by mouth 4 (four) times daily. As needed [facility] bumetanide 2 mg tablet 09 00:00: 00 Yes 2mg Take 1 tablet by mouth ONCE PRN (Lower extremity swelling). [facility] bimatoprost (LUMIGAN) 0.01 % ophthalmic drops 12-27 09:08: 29 Yes 1[drp] Place 1 Drop in each eye in the morning. [facility] atenoloL 25 mg tablet 12-27 09:08: 29 Yes 25mg Take 1 tablet by mouth at bedtime. [facility] calcium acetate,stephen sphat bind, 667 mg capsule 12-27 09:08: 29 Yes 667mg Take 1 capsule by mouth in the morning and 1 capsule at noon and 1 capsule in the evening. Take with meals. [facility] sodium bicarbonate 650 mg tablet 12-27 09:08: 29 Yes TAKE 1 TABLET BY MOUTH IN THE MORNING AND 1 AT NOON AND 1 IN THE EVENING WITH MEALS [facility] liraglutide (VICTOZA 2-CUCO) 0.6 mg/0.1 mL (18 mg/3 mL) injection 12-27 09:08: 29 01-21 00:00 :00 No 1.2mg inject 1.2 mg under the skin. [facility] amLODIPine 10 mg tablet 12-21 00:00: 00 12-22 04:59 :00 Yes 10mg Take 1 tablet by mouth in the morning. [facility] traZODone 50 mg tablet 12-21 00:00: 00 12-22 04:59 :00 Yes 50mg Take 1 tablet by mouth as needed. [facility] latanoprost 0.005 % ophthalmic drops 3-23 00:00: 00 Yes 1[drp] Place 1 Drop in both eyes every evening. [facility] hydralAZINE (APRESOLINE ) injection 10 mg - 02:15: 00 09-16 02:12 :00 No 10mg 10 mg, Slow IV Push, ONCE, 1 dose, [facility]09/15/23 [facility] flut[facility] propionate 50 mcg/actuati on nasal spray 2022-09 00:00: 00 08-10 05:59 :00 No 1{spray } Use 1 [place] in each nostril. [facility] diphenhydrA MINE (BENADRYL) tablet 50 mg 10-22 20:30: 00 10-22 20:29 :00 No 50mg 50 mg, Oral, ONCE, 1 dose, On 10/22/22 at 1430, [facility] Victoza 18 MG/3ML Victoza 18 MG/3ML 03-02 00:00: 00 04-01 00:00 :00 No QD Victoza 18 MG/3ML Vitamin D3 77048 UNIT Vitamin D3 60752 UNIT 03-01 00:00: 00 05-30 00:00 :00 No 1{capsu le} Vitamin D3 10120 UNIT cloNIDine (CATAPRES) tablet 0.2 mg 01-06 13:00: 00 Yes .2mg 0.2 mg, Oral, TID, First dose on Kaylie 01/06/22 at 0800, Until Discontinu ed, Routine [facility] Lisinopril- hydroCHLORO thiazide 20-12.5 MG Lisinopril- [...] 5 MG lancets (FREESTYLE LANCETS) 28 gauge Misc 12-06 00:00: 00 Yes [id number] USE ONE LANCET TO CHECK BLOOD GLUCOSE 2 TO 3 TIMES A DAY [facility] Lancets [facility] 09-21 00:00: 00 Yes [id number] Check sugars 2-3 times a day. Dx Code E11.9. Brand per insurance. Patient has uncontroll ed diabetes and needs to check sugars at least 2 times a day. ACCU-CHEK- same brand as meter [facility] blood sugar diagnostic strip 09-21 00:00: 00 Yes [id number] Check sugars 2-3 times a day. Dx Code E11.9. Brand per insurance. Patient has uncontroll ed diabetes and needs to check sugars at least 2 times a day. ACCU-CHEK- same brand as meter [facility] Blood-Gluco se Meter Kit 09-21 00:00: 00 Yes [id number] Check sugars 2-3 times a day. Dx Code E11.9. Brand per insurance. Patient has uncontroll ed diabetes and needs to check sugars at least 2 times a day. ACCU-CHEK [facility] blood sugar diagnostic strip 09-21 00:00: 00 Yes [id number] Check sugars 2-3 times a day. Dx Code E11.9. Brand per insurance. Patient has uncontroll ed diabetes and needs to check sugars at least 2 times a day. ACCU-CHEK- same brand as meter [facility] Blood-Gluco se Meter Kit 09-21 00:00: 00 Yes [id number] Check sugars 2-3 times a day. Dx Code E11.9. Brand per insurance. Patient has uncontroll ed diabetes and needs to check sugars at least 2 times a day. ACCU-CHEK [facility] sildenafiL (VIAGRA) 100 mg tablet 09-17 00:00: 00 Yes [id number] 100mg Take 1 tablet by mouth daily. [facility] metformin ER 500 mg 24 hr tablet 2020-09 00:00: 00 Yes [id number] 1000mg Take 2 tablets by mouth 2 (two) times daily. [facility] lisinopriL- hydrochloro thiazide 20-25 mg per tablet 2020-09 00:00: 00 Yes [id number] 1{tbl} Take 1 tablet by mouth daily. [facility] doxazosin 2 mg tablet 2020-09 00:00: 00 01-21 00:00 :00 No [id number] 2mg Take 1 tablet by mouth at bedtime. [facility] bimatoprost (LUMIGAN) 0.01 % ophthalmic drops 05-06 11:38: 50 Yes 1[drp] Place 1 Drop in each eye in the morning. [facility] atorvastati n 20 mg tablet 04-09 08:46: 06 Yes 20mg Take 1 tablet by mouth at bedtime. [facility] Insulin Regular Human (NOVOLIN R FLEXPEN) 100 unit/mL (3 mL) InPn 04-09 00:00: 00 01-21 00:00 :00 No [id number] Check blood sugars fasting before meals and 2 hours after 1 meal of the day. If sugars are 180-200 take 6 units of insulin, 201-250 take 8 units, 251-300 take 10 units, 301-350 take 12 units, 351-400 take 14 units, 401-450 take 16 units, 451-500 take 18 units, if >500 take 20 units, recheck in 2 hours. If still high call the clinic. [facility] Blood-Gluco se Meter Kit 04-09 00:00: 00 09-21 00:00 :00 No [id number] Check sugars 2-3 times a day. Dx Code E11.9. Brand per insurance. Patient has uncontroll ed diabetes and needs to check sugars at least 2 times a day. [facility] blood sugar diagnostic strip 04-09 00:00: 00 09-21 00:00 :00 No [id number] Check sugars 2-3 times a day. Dx Code E11.9. Brand per insurance. Patient has uncontroll ed diabetes and needs to check sugars at least 2 times a day. [facility] Lancets Misc 04-09 00:00: 00 09-21 00:00 :00 No [id number] Check sugars 2-3 times a day. Dx Code E11.9. Brand per insurance. Patient has uncontroll ed diabetes and needs to check sugars at least 2 times a day. [facility] ergocalcife rol, vitamin d2, (VITAMIN D2) 1,250 mcg (50,000 unit) capsule 03-08 00:00: 00 Yes [id number] 58626G Take 1 capsule by mouth weekly. [facility] insulin syr/ndl U100 half adri 0.3 mL 30 gauge x 1/2" Syrg 03-08 00:00: 00 01-21 00:00 :00 No [id number] 1{syrin ge} 1 Syringe 2 (two) times daily. [facility] insulin glargine (LANTUS U-100 INSULIN) 100 unit/mL injection 03-04 00:00: 00 01-21 00:00 :00 No [id number] 20U inject 20 Units under the skin daily. [facility] prednisoLON E acetate 1 % ophthalmic suspension drops 12-18 00:00: 00 Yes 1[drp] Place 1 Drop in both eyes in the morning. [facility] metFORMIN HCl 500 MG metFORMIN HCl [...] t} QD Lisinopril 20 MG Vitamin D3 37182 UNIT Vitamin D3 62583 UNIT No 1{capsu le} Vitamin D3 61493 UNIT Lisinopril 20 MG Lisinopril 20 MG No 1{table t} QD Lisinopril 20 MG metFORMIN HCl ER 500 MG metFORMIN HCl ER 500 MG No BID metFORMIN HCl ER 500 MG Victoza 18 MG/3ML Victoza 18 MG/3ML No QD Victoza 18 MG/3ML Vitamin D3 93637 UNIT Vitamin D3 63970 UNIT No 1{capsu le} Vitamin D3 34999 UNIT amLODIPine Besylate 5 MG amLODIPine Besylate 5 MG No amLODIPine Besylate 5 MG Lisinopril 20 MG Lisinopril 20 MG [...] Atorvastat in Calcium 20 MG Vitamin D3 24591 UNIT Vitamin D3 97185 UNIT No 1{capsu le} Vitamin D3 83279 UNIT Lisinopril- hydroCHLORO thiazide 20-12.5 MG Lisinopril- [...] No Sildenafil Citrate 100 MG Vitamin D3 33667 UNIT Vitamin D3 60373 UNIT No 1{capsu le} Vitamin D3 92713 UNIT Lisinopril- hydroCHLORO thiazide 20-12.5 MG Lisinopril- [...] No amLODIPine Besylate 5 MG Vitamin D3 51902 UNIT Vitamin D3 52439 UNIT No 1{capsu le} Vitamin D3 41369 UNIT Atorvastati n Calcium 20 MG Atorvastati [...] - single dose syringe 2022-06-16 08:58:00 Completed [facility] Flucelvax - single dose syringe Flucelvax - single dose syringe 2022-06-16 08:58:00 Completed [facility] Flucelvax - single dose syringe Flucelvax - single dose syringe 2022-06-16 08:58:00 Completed [facility] SARS-COV-2 COVID-19 MODERNA VACCINE 2020-12-06 00:00:00 Completed [facility] SARS-COV-2 COVID-19 MODERNA VACCINE 2020-12-06 00:00:00 Completed [facility] SARS-COV-2 COVID-19 MODERNA VACCINE 2020-12-06 00:00:00 Completed [facility] SARS-COV-2 COVID-19 MODERNA 12+ YRS VACCINE 2020-12-06 00:00:00 Completed [facility] SARS-COV-2 COVID-19 MODERNA 12+ YRS VACCINE 2020-12-06 00:00:00 Completed [facility] SARS-COV-2 COVID-19 MODERNA VACCINE 2020-11-08 00:00:00 Completed [facility] SARS-COV-2 COVID-19 MODERNA VACCINE 2020-11-08 00:00:00 Completed [facility] SARS-COV-2 COVID-19 MODERNA VACCINE 2020-11-08 00:00:00 Completed [facility] SARS-COV-2 COVID-19 MODERNA 12+ YRS VACCINE 2020-11-08 00:00:00 Completed [facility] SARS-COV-2 COVID-19 MODERNA 12+ YRS VACCINE 2020-11-08 00:00:00 Completed [facility] Flucelvax - single dose syringe Flucelvax - single dose syringe Unknown Completed [facility] Flucelvax - single dose syringe Flucelvax - single dose syringe Unknown Completed [facility] SARS-COV-2 COVID-19 MODERNA 12+ YRS VACCINE Unknown Completed [facility] SARS-COV-2 COVID-19 MODERNA 12+ YRS VACCINE Unknown Completed [facility] SARS-COV-2 COVID-19 VACCINE - (MODERNA) Unknown Completed [facility] Pneumococcal 15 Conjugate, PCV15 (Vaxneuvance) Unknown Completed [facility] TDAP Unknown Completed [facility] SARS-COV-2 COVID-19 MODERNA 12+ YRS VACCINE Unknown Completed [facility] SARS-COV-2 COVID-19 MODERNA 12+ YRS VACCINE Unknown Completed [facility] SARS-COV-2 COVID-19 VACCINE - (MODERNA) Unknown Completed [facility] Pneumococcal 15 Conjugate, PCV15 (Vaxneuvance) Unknown Completed [facility] TDAP Unknown Completed [facility] SARS-COV-2 COVID-19 MODERNA 12+ YRS VACCINE Unknown Completed [facility] SARS-COV-2 COVID-19 MODERNA 12+ YRS VACCINE Unknown Completed [facility] SARS-COV-2 COVID-19 VACCINE - (MODERNA) Unknown Completed [facility] Pneumococcal 15 Conjugate, PCV15 (Vaxneuvance) Unknown Completed [facility] TDAP Unknown Completed [facility] SARS-COV-2 COVID-19 MODERNA 12+ YRS VACCINE Unknown Completed [facility] SARS-COV-2 COVID-19 MODERNA 12+ YRS VACCINE Unknown Completed [facility] SARS-COV-2 COVID-19 VACCINE - (MODERNA) Unknown Completed [facility] Pneumococcal 15 Conjugate, PCV15 (Vaxneuvance) Unknown Completed [facility] TDAP Unknown Completed [facility] SARS-COV-2 COVID-19 MODERNA 12+ YRS VACCINE Unknown Completed [facility] SARS-COV-2 COVID-19 MODERNA 12+ YRS VACCINE Unknown Completed [facility] SARS-COV-2 COVID-19 VACCINE - (MODERNA) Unknown Completed [facility] Pneumococcal 15 Conjugate, PCV15 (Vaxneuvance) Unknown Completed [facility] TDAP Unknown Completed [facility] SARS-COV-2 COVID-19 MODERNA 12+ YRS VACCINE Unknown Completed [facility] SARS-COV-2 COVID-19 MODERNA 12+ YRS VACCINE Unknown Completed [facility] SARS-COV-2 COVID-19 VACCINE - (MODERNA) Unknown Completed [facility] Pneumococcal 15 Conjugate, PCV15 (Vaxneuvance) Unknown Completed [facility] TDAP Unknown Completed [facility] [facility] SARS-COV-2 COVID-19 MODERNA 12+ YRS VACCINE Unknown Completed [facility] SARS-COV-2 COVID-19 MODERNA 12+ YRS VACCINE Unknown Completed [facility] SARS-COV-2 COVID-19 MODERNA 12+ YRS VACCINE Unknown Completed [facility] SARS-COV-2 COVID-19 MODERNA 12+ YRS VACCINE Unknown Completed [facility] SARS-COV-2 COVID-19 MODERNA 12+ YRS VACCINE Unknown Completed [facility] SARS-COV-2 COVID-19 MODERNA 12+ YRS VACCINE Unknown Completed [facility] SARS-COV-2 COVID-19 MODERNA 12+ YRS VACCINE Unknown Completed [facility] SARS-COV-2 COVID-19 MODERNA 12+ YRS VACCINE Unknown Completed [facility] SARS-COV-2 COVID-19 MODERNA 12+ YRS VACCINE Unknown Completed [facility] SARS-COV-2 COVID-19 MODERNA 12+ YRS VACCINE Unknown Completed [facility] SARS-COV-2 COVID-19 MODERNA 12+ YRS VACCINE Unknown Completed [facility] SARS-COV-2 COVID-19 MODERNA 12+ YRS VACCINE Unknown Completed [facility] SARS-COV-2 COVID-19 MODERNA 12+ YRS VACCINE Unknown Completed [facility] SARS-COV-2 COVID-19 MODERNA 12+ YRS VACCINE Unknown Completed [facility] SARS-COV-2 COVID-19 VACCINE - (MODERNA) Unknown Completed [facility] Pneumococcal 15 Conjugate, PCV15 (Vaxneuvance) Unknown Completed [facility] TDAP Unknown Completed [facility] SARS-COV-2 COVID-19 MODERNA 12+ YRS VACCINE Unknown Completed [facility] SARS-COV-2 COVID-19 MODERNA 12+ YRS VACCINE Unknown Completed [facility] SARS-COV-2 COVID-19 VACCINE - (MODERNA) Unknown Completed [facility] Pneumococcal 15 Conjugate, PCV15 (Vaxneuvance) Unknown Completed [facility] TDAP Unknown Completed [facility] SARS-COV-2 COVID-19 MODERNA 12+ YRS VACCINE Unknown Completed [facility] SARS-COV-2 COVID-19 MODERNA 12+ YRS VACCINE Unknown Completed [facility] SARS-COV-2 COVID-19 VACCINE - (MODERNA) Unknown Completed [facility] Pneumococcal 15 Conjugate, PCV15 (Vaxneuvance) Unknown Completed [facility] TDAP Unknown Completed [facility] SARS-COV-2 COVID-19 MODERNA 12+ YRS VACCINE Unknown Completed [facility] SARS-COV-2 COVID-19 MODERNA 12+ YRS VACCINE Unknown Completed [facility] SARS-COV-2 COVID-19 VACCINE - (MODERNA) Unknown Completed [facility] Pneumococcal 15 Conjugate, PCV15 (Vaxneuvance) Unknown Completed [facility] TDAP Unknown Completed [facility] SARS-COV-2 COVID-19 MODERNA 12+ YRS VACCINE Unknown Completed [facility] SARS-COV-2 COVID-19 MODERNA 12+ YRS VACCINE Unknown Completed [facility] SARS-COV-2 COVID-19 VACCINE - (MODERNA) Unknown Completed [facility] Pneumococcal 15 Conjugate, PCV15 (Vaxneuvance) Unknown Completed [facility] TDAP Unknown Completed [facility] SARS-COV-2 COVID-19 MODERNA 12+ YRS VACCINE Unknown Completed [facility] SARS-COV-2 COVID-19 MODERNA 12+ YRS VACCINE Unknown Completed [facility] SARS-COV-2 COVID-19 VACCINE - (MODERNA) Unknown Completed [facility] Pneumococcal 15 Conjugate, PCV15 (Vaxneuvance) Unknown Completed [facility] TDAP Unknown Completed [facility] SARS-COV-2 COVID-19 MODERNA 12+ YRS VACCINE Unknown Completed [facility] SARS-COV-2 COVID-19 MODERNA 12+ YRS VACCINE Unknown Completed [facility] SARS-COV-2 COVID-19 VACCINE - (MODERNA) Unknown Completed [facility] Pneumococcal 15 Conjugate, PCV15 (Vaxneuvance) Unknown Completed [facility] TDAP Unknown Completed [facility] SARS-COV-2 COVID-19 MODERNA 12+ YRS VACCINE Unknown Completed [facility] SARS-COV-2 COVID-19 MODERNA 12+ YRS VACCINE Unknown Completed [facility] SARS-COV-2 COVID-19 VACCINE - (MODERNA) Unknown Completed [facility] Pneumococcal 15 Conjugate, PCV15 (Vaxneuvance) Unknown Completed [facility] TDAP Unknown Completed [facility] SARS-COV-2 COVID-19 MODERNA 12+ YRS VACCINE Unknown Completed [facility] SARS-COV-2 COVID-19 MODERNA 12+ YRS VACCINE Unknown Completed [facility] SARS-COV-2 COVID-19 VACCINE - (MODERNA) Unknown Completed [facility] Pneumococcal 15 Conjugate, PCV15 (Vaxneuvance) Unknown Completed [facility] TDAP Unknown Completed [facility] Vital Signs Vital Name Observation Time Observation Value Comments S ource Systolic blood pressure 2024-02-03 23:48:00 126 mm[Hg] [facility] Diastolic blood pressure 2024-02-03 23:48:00 75 mm[Hg] [facility] Heart rate 2024-02-03 23:48:00 72 /min [facility] Body temperature 2024-02-03 23:48:00 36.72 Kristal [facility] Respiratory rate 2024-02-03 23:48:00 16 /min [facility] Body height 2024-02-03 23:48:00 172.7 cm [facility] Body weight 2024-02-03 23:48:00 71.668 kg [facility] BMI 2024-02-03 23:48:00 24.02 kg/m2 [facility] Oxygen saturation in Arterial blood by Pulse oximetry 2024-02-03 23:48:00 99 /min [facility] Heart rate 2024-02-02 17:41:00 66 /min [facility] Oxygen saturation in Arterial blood by Pulse oximetry 2024-02-02 17:41:00 95 /min [facility] Systolic blood pressure 2024-02-02 17:39:00 113 mm[Hg] [facility] Diastolic blood pressure 2024-02-02 17:39:00 69 mm[Hg] [facility] Respiratory rate 2024-02-02 17:39:00 10 /min [facility] Body temperature 2024-02-02 13:21:00 36.56 Kristal [facility] Body height 2024-02-01 14:29:00 172.7 cm [facility] Body weight 2024-02-01 14:29:00 68.9 kg [facility] BMI 2024-02-01 14:29:00 23.10 kg/m2 [facility] Heart rate 2024-02-02 16:17:00 65 /min [facility] Respiratory rate 2024-02-02 16:17:00 9 /min [facility] Oxygen saturation in Arterial blood by Pulse oximetry 2024-02-02 16:17:00 100 /min [facility] Systolic blood pressure 2024-02-02 16:13:00 126 mm[Hg] [facility] Diastolic blood pressure 2024-02-02 16:13:00 79 mm[Hg] [facility] Body temperature 2024-02-02 13:21:00 36.56 Kristal [facility] Body height 2024-02-01 14:29:00 172.7 cm [facility] Body weight 2024-02-01 14:29:00 68.9 kg [facility] BMI 2024-02-01 14:29:00 23.10 kg/m2 [facility] Systolic blood pressure 2024-01-22 18:14:00 174 mm[Hg] [facility] Diastolic blood pressure 2024-01-22 18:14:00 99 mm[Hg] [facility] Heart rate 2024-01-22 18:14:00 77 /min [facility] Oxygen saturation in Arterial blood by Pulse oximetry 2024-01-22 18:14:00 99 /min [facility] Body temperature 2024-01-22 18:13:00 36.28 Kristal [facility] Respiratory rate 2024-01-22 18:13:00 20 /min [facility] Body height 2024-01-22 18:13:00 172.7 cm [facility] Body weight 2024-01-22 18:13:00 70.761 kg [facility] BMI 2024-01-22 18:13:00 23.72 kg/m2 [facility] Systolic blood pressure 2023-12-28 14:02:00 182 mm[Hg] [facility] Diastolic blood pressure 2023-12-28 14:02:00 90 mm[Hg] [facility] Heart rate 2023-12-28 14:02:00 68 /min [facility] Body temperature 2023-12-28 13:54:00 36.17 Kristal [facility] Respiratory rate 2023-12-28 13:54:00 16 /min [facility] Body height 2023-12-28 13:54:00 172.7 cm [facility] Body weight 2023-12-28 13:54:00 71.753 kg [facility] BMI 2023-12-28 13:54:00 24.05 kg/m2 [facility] Oxygen saturation in Arterial blood by Pulse oximetry 2023-12-28 13:54:00 100 /min [facility] Systolic blood pressure 2023-09-16 04:00:00 176 mm[Hg] [facility] Diastolic blood pressure 2023-09-16 04:00:00 107 mm[Hg] [facility] Respiratory rate 2023-09-16 04:00:00 18 /min [facility] Oxygen saturation in Arterial blood by Pulse oximetry 2023-09-16 04:00:00 97 /min [facility] Heart rate 2023-09-16 03:10:00 112 /min [facility] Body temperature 2023-09-16 00:34:26 37.28 Kristal [facility] Body height 2023-09-16 00:23:00 172.7 cm [facility] Body weight 2023-09-16 00:23:00 71.668 kg [facility] BMI 2023-09-16 00:23:00 24.02 kg/m2 [facility] Systolic blood pressure 2022-10-22 20:23:00 158 mm[Hg] states he has not taken his BP medications yet today [facility] Diastolic blood pressure 2022-10-22 20:23:00 106 mm[Hg] states he has not taken his BP medications yet today [facility] Heart rate 2022-10-22 20:23:00 97 /min [facility] Body temperature 2022-10-22 20:23:00 37 Kristal [facility] Respiratory rate 2022-10-22 20:23:00 20 /min [facility] Body height 2022-10-22 20:23:00 172.7 cm [facility] Body weight 2022-10-22 20:23:00 75.751 kg [facility] BMI 2022-10-22 20:23:00 25.39 kg/m2 [facility] Oxygen saturation in Arterial blood by Pulse oximetry 2022-10-22 20:23:00 100 /min [facility] height 2022-06-16 08:20:00 66.5 [in_i] [facility] weight 2022-06-16 08:20:00 152 [lb_av] [facility] temperature 2022-06-16 08:20:00 96.7 [degF] [facility] bmi 2022-06-16 08:20:00 24.16 kg/m2 [facility] oximetry 2022-06-16 08:20:00 98 % [facility] respiratory rate 2022-06-16 08:20:00 18 /min [facility] blood pressure systolic 2022-06-16 08:20:00 138 mm[Hg] [facility] blood pressure diastolic 2022-06-16 08:20:00 82 mm[Hg] [facility] height 2022-04-04 15:00:00 68.00 [in_i] [facility] weight 2022-04-04 15:00:00 152.2 [lb_av] [facility] temperature 2022-04-04 15:00:00 98.4 [degF] [facility] bmi 2022-04-04 15:00:00 23.14 kg/m2 [facility] oximetry 2022-04-04 15:00:00 98 % [facility] respiratory rate 2022-04-04 15:00:00 18 /min [facility] blood pressure systolic 2022-04-04 15:00:00 137 mm[Hg] [facility] blood pressure diastolic 2022-04-04 15:00:00 76 mm[Hg] [facility] height 2022-04-04 15:20:00 68.00 [in_i] [facility] weight 2022-04-04 15:20:00 152.2 [lb_av] [facility] temperature 2022-04-04 15:20:00 98.4 [degF] [facility] bmi 2022-04-04 15:20:00 23.14 kg/m2 [facility] oximetry 2022-04-04 15:20:00 98 % [facility] respiratory rate 2022-04-04 15:20:00 18 /min [facility] blood pressure systolic 2022-04-04 15:20:00 137 mm[Hg] [facility] blood pressure diastolic 2022-04-04 15:20:00 76 mm[Hg] [facility] height 2022-03-02 09:10:00 68.00 [in_i] [facility] weight 2022-03-02 09:10:00 157.2 [lb_av] [facility] temperature 2022-03-02 09:10:00 97.3 [degF] [facility] bmi 2022-03-02 09:10:00 23.9 kg/m2 [facility] oximetry 2022-03-02 09:10:00 100 % [facility] respiratory rate 2022-03-02 09:10:00 18 /min [facility] blood pressure systolic 2022-03-02 09:10:00 138 mm[Hg] [facility] blood pressure diastolic 2022-03-02 09:10:00 82 mm[Hg] [facility] height 2022-02-16 08:00:00 68.00 [in_i] [facility] weight 2022-02-16 08:00:00 156.9 [lb_av] [facility] temperature 2022-02-16 08:00:00 97.2 [degF] [facility] bmi 2022-02-16 08:00:00 23.85 kg/m2 [facility] oximetry 2022-02-16 08:00:00 99 % [facility] respiratory rate 2022-02-16 08:00:00 18 /min [facility] blood pressure systolic 2022-02-16 08:00:00 132 mm[Hg] [facility] blood pressure diastolic 2022-02-16 08:00:00 76 mm[Hg] [facility] Systolic blood pressure 2022-01-06 04:43:00 189 mm[Hg] [facility] Diastolic blood pressure 2022-01-06 04:43:00 118 mm[Hg] [facility] Heart rate 2022-01-06 04:43:00 95 /min [facility] Respiratory rate 2022-01-06 04:43:00 20 /min [facility] Oxygen saturation in Arterial blood by Pulse oximetry 2022-01-06 04:43:00 99 /min [facility] Body temperature 2022-01-06 04:17:00 37.22 Kristal [facility] Body height 2022-01-06 04:17:00 172.7 cm [facility] Body weight 2022-01-06 04:17:00 77.111 kg [facility] BMI 2022-01-06 04:17:00 25.85 kg/m2 [facility] oximetry 2022-01-04 10:00:00 97 % [facility] respiratory rate 2022-01-04 10:00:00 17 /min [facility] blood pressure systolic 2022-01-04 10:00:00 137 mm[Hg] [facility] blood pressure diastolic 2022-01-04 10:00:00 85 mm[Hg] [facility] height 2022-01-04 10:00:00 68.00 [in_i] [facility] weight 2022-01-04 10:00:00 156.6 [lb_av] [facility] temperature 2022-01-04 10:00:00 97.8 [degF] [facility] bmi 2022-01-04 10:00:00 23.81 kg/m2 [facility] Procedures Procedure Date / Time Performed Performing Clinicia n Source XR CHEST 1 2024-02-02 16:06:00 Denisse Cabrera [facility] XR CHEST 1 2024-02-02 16:06:00 Denisse Cabrera [facility] FL TIME OR (NON-REPORTABLE) 2024-02-02 15:57:00 Michelle Moscoso [facility] FL TIME OR (NON-REPORTABLE) 2024-02-02 15:57:00 Michelle Moscoso [facility] HB ABO GROUPING 2024-02-02 14:17:00 Patrick Willis [facility] HB ABO GROUPING 2024-02-02 14:17:00 Patrick Willis [facility] [id number] - 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/> 2024-02-02 14:13:00 Michelle Moscoso [facility] [id number] - CH FLUORO CENTRAL VENOUS ACCESS DEV PLACEMENT 2024-02-02 14:13:00 Michelle Moscoso [facility] [id number] - CHG US VASC ACCESS SITS VSL PATENCY NDL ENTRY 2024-02-02 14:13:00 Michelle Moscoso [facility] ISTA ACUTE CARE VENOUS 2024-02-02 13:54:00 Michelle Moscoso [facility] ACUTE CARE VENOUS 2024-02-02 13:54:00 Danis [facility] BASIC METABOLIC PANEL (NA, K, CL, CO2, GLUCOSE, BUN, CREATININE, CA) 2024-02-02 13:37:00 Danis [facility] BASIC METABOLIC PANEL (NA, K, CL, CO2, GLUCOSE, BUN, CREATININE, CA) 2024-02-02 13:37:00 Danis [facility] POCT GLUCOSE (AUTOMATED) 2024-02-02 13:34:00 Danis [facility] POCT GLUCOSE (AUTOMATED) 2024-02-02 13:34:00 Danis [facility] REFERRAL- REQUEST/RESPONSE 2023-09-28 06:01:00 Doctor Unassigned, [place] [facility] URINALYSIS 2023-09-16 01:26:00 Grady Thrasher [facility] XR CHEST 1 VW 2023-09-16 00:59:20 Grady Thrasher [facility] POCT GLUCOSE (AUTOMATED) 2023-09-16 00:52:00 Singer Grady [facility] LACTIC ACID WHOLE BLOOD 2023-09-16 00:49:00 Singer [facility] TROPONIN I 2023-09-16 00:48:00 Grady Thrasher [facility] COMP. METABOLIC PANEL (00420) 2023-09-16 00:48:00 Singer [facility] CBC WITH DIFF 2023-09-16 00:48:00 Grady Thrasher [facility] RAPID INFLUENZA A/B 2023-09-16 00:48:00 Hiro Thrasher [facility] N-TERMINAL PRO-BNP 2023-09-16 00:48:00 Grady Thrasher [facility] COVID-19 (ID NOW RAPID TESTING) 2023-09-16 00:48:00 Grady Thrasher [facility] NOTICE OF PRIVACY PRACTICES 2023-09-16 00:05:57 Doctor Unassigned, [place] [facility] CONSENT/REFUSAL FOR DIAGNOSIS AND TREATMENT 2023-09-16 00:01:56 Doctor Unassigned, [place] [facility] CONSENT/REFUSAL FOR DIAGNOSIS AND TREATMENT 2022-10-22 20:18:01 Doctor Unassigned, [place] [facility] COMP. METABOLIC PANEL (03935) 2022-01-06 04:34:00 Davidson Torres [facility] CBC WITH DIFF 2022-01-06 04:34:00 Davidson Torres [facility] NOTICE OF PRIVACY PRACTICES 2022-01-06 04:06:29 Doctor Unassigned, [place] [facility] CONSENT/REFUSAL FOR DIAGNOSIS AND TREATMENT 2022-01-06 04:05:18 Doctor Unassigned, [place] [facility] Encounters Start Date/Time End Date/Time Encounter Type Admission Type Attending [facility] Facility Care Department Encounter ID Source 2024-01-22 15:12:39 Outpatient R MICHELLE MOSCOSO [facility] [id number] [facility] 2022-11-17 14:49:01 Outpatient [place], [facility] [id number] [facility] 2022-08-19 11:40:02 Outpatient [place], [facility] [id number] [facility] 2022-06-15 11:26:03 Outpatient Danial [facility] [id number] [facility] 2022-03-02 15:11:02 Outpatient Danial [facility] [id number] [facility] 2022-02-15 10:14:02 Outpatient [facility] [id number] [facility] 2022-01-04 10:07:04 Outpatient Rahul Jasmine [facility] [id number] [facility] 2021-07-11 11:01:[address] [facility] [id number] [facility] 2021-07-09 22:11:[address] [facility] [id number] [facility] 2024-02-06 00:00:00 2024-02-07 09:59:25 Telephone Michelle Moscoso [facility] [id number] 350.1.13.10 4.2.7.2.686 [id number] [facility] 2024-02-03 18:51:00 2024-02-03 19:29:00 Emergency X ROVERTO, SALCARISSA ROVERTO, [facility] [id number] [facility] 2024-02-03 18:51:00 2024-02-03 19:29:00 [facility] [id number] 350.1.13.10 4.2.7.2.686 [id number] [facility] 2024-02-02 16:15:00 2024-02-02 16:30:00 Physician Advisor Visit 2, [facility]c [facility] Trung Crawford [facility] [id number] 350.1.13.10 4.2.7.2.686 [id number] [facility] 2024-02-02 16:15:00 2024-02-02 16:15:[address] [facility] [id number] [facility] 2024-02-02 08:09:00 2024-02-02 13:45:00 Outpatient R MICHELLE MOSCOSO [facility] [id number] [facility] 2024-02-02 08:09:00 2024-02-02 13:45:00 Hospital Encounter Michelle Moscoso [facility] [place] 1.2.840.114 350.1.13.10 4.2.7.2.686 [id number] [facility] 2024-02-02 09:30:00 2024-02-02 11:17:00 Surgery Michelle Moscoso [facility] 1.2.840.114 350.1.13.10 4.2.7.2.686 [id number] [facility] 2024-01-31 00:00:00 2024-02-01 09:45:12 Telephone Michelle Moscoso [facility] 1.2.840.114 350.1.13.10 4.2.7.2.686 [id number] [facility] 2024-01-31 00:00:00 2024-01-31 14:35:51 Letter (Out) Doctor Unassigned, [place] [facility] 1.2.840.114 350.1.13.10 4.2.7.2.686 [id number] [facility] 2024-01-31 14:00:00 2024-01-31 14:00:00 Outpatient R LIANA SMITH [facility] [id number] [facility] 2024-01-30 00:00:00 2024-01-30 11:54:48 Telephone Michelle Moscoso [facility] 1.2.840.114 350.1.13.10 4.2.7.2.686 [id number] [facility] 2024-01-29 00:00:00 2024-01-29 12:00:59 Telephone Michelle Moscoso [facility] 1.2.840.114 350.1.13.10 4.2.7.2.686 [id number] [facility] 2024-01-29 00:00:00 2024-01-29 11:55:21 Telephone Michelle Moscoso [facility] 1.2.840.114 350.1.13.10 4.2.7.2.686 [id number] [facility] 2024-01-22 13:00:00 2024-01-22 13:53:13 Outpatient R MICHELLE [facility]O [facility] [id number] [facility] 2024-01-22 13:00:00 2024-01-22 13:53:13 Office Visit Michelle Moscoso [facility] 1.2840.114 350.1.13.10 4.2.7.2.686 [id number] [facility] 2024-01-10 11:00:00 2024-01-10 11:00:[address] [facility] [id number] [facility] 2024-01-01 14:00:00 2024-01-01 14:00:00 Outpatient Carson MICHELLE MOSCOSO [facility] [id number] [facility] 2023-12-28 09:00:00 2023-12-28 09:49:00 Outpatient R LIANA SMITH [facility] [id number] [facility] 2023-12-28 09:00:00 2023-12-28 09:49:00 Office Visit Liana [facility] 1.2840.114 350.1.13.10 4.2.7.2.686 [id number] [facility] 2023-12-28 00:00:00 2023-12-28 00:00:00 Telephone Liana Smith [facility] 1..114 350.1.13.10 4.2.7.2.686 [id number] [facility] 2023-10-19 10:00:00 2023-10-19 10:00:[address] [facility] [id number] [facility] 2023-10-13 09:30:00 2023-10-13 09:30:00 [facility] [id number] [facility] 2023-10-10 00:00:00 2023-10-10 00:00:00 Telephone Loren Yuan [facility] 1.840.114 350.1.13.10 4.2.7.2.686 [id number] [facility] 2023-10-03 17:30:00 2023-10-03 18:00:00 BOAZ Visit Follow Up [IHC/OD Only] Deanne Gibbons 2..840. [id number] 2..840.1. [id number] [address] [place] [address] 2023-09-28 00:00:00 2023-09-28 00:00:00 Orders Only Doctor Unassigned, [place] [facility] 1.2.840.114 350.1.13.10 4.2.7.2.686 [id number] [facility] 2023-09-18 18:00:00 2023-09-18 19:00:00 BOAZ Visit Deanne Gibbons 2..840. 1.598453. 4.6.25745 [id number] 2.840.1. 946454.4.6. [id number] A96 [facility] 2023-09-15 18:25:00 2023-09-15 23:21:00 Emergency X GRADY THRASHER [facility] ERT [id number] [facility] 2023-09-15 18:25:00 2023-09-15 23:21:00 Emergency Grady Thrasher Chip [facility] 1.2.840.114 350.1.13.10 4.2.7.2.686 [id number] [facility] 2023-07-22 00:00:00 2023-07-22 00:00:00 Outpatient GAYLORD_S DMG DMG [id number] [facility] 2023-04-04 00:00:00 2023-04-04 00:00:00 Outpatient GAYLORD_S DMG DMG [id number] [facility] 2023-04-04 00:00:00 2023-04-04 00:00:00 Outpatient GAYLORD_S DMG DMG [id number] [facility] 2023-03-01 19:00:00 2023-03-01 20:00:00 RONEL Hernandez 2.16.840. 1.086812. 4.6.61526 [id number] 2.16.840.1. 630775.4.6. [id number] U92 [facility] 2023-02-15 00:00:00 2023-02-15 00:00:00 Outpatient GAYLORD_S DMG DMG [id number] [facility] 2023-02-15 00:00:00 2023-02-15 00:00:00 Outpatient GAYLORD_S DMG DMG [id number] [facility] 2022-12-13 00:00:00 2022-12-13 00:00:00 Outpatient Deshazo_T DMG DMG [id number] [facility] 2022-12-13 00:00:00 2022-12-13 00:00:00 Outpatient Deshazo_T DMG DMG [id number] [facility] 2022-11-21 00:00:00 2022-11-21 00:00:00 (TEL) STLMLC STLMLC [id number] [facility] 2022-10-24 00:00:00 2022-10-24 00:00:00 (TEL) STLMLC STLMLC [id number] [facility] 2022-10-22 14:26:00 2022-10-22 14:48:00 Emergency X BERENICE ASHER [facility] ERT [id number] [facility] 2022-10-22 14:26:00 2022-10-22 14:48:00 Emergency Berenice Asher [facility] 1.2.840.114 350.1.13.10 4.2.7.2.686 [id number] [facility] 2022-10-21 00:00:00 2022-10-21 00:00:00 Carmen Hinson [facility] [place] [address].2.840.114 350.1.13.10 4.2.7.2.686 [id number] [facility] 2022-08-22 00:00:00 2022-08-22 00:00:00 (TEL) STLMLC STLMLC [id number] [facility] 2022-06-16 00:00:00 2022-06-16 00:00:00 OFFICE VISIT ESTAB PT LEVEL 4 STLMLC STLMLC [id number] [facility] 2022-04-07 00:00:00 2022-04-07 00:00:00 (TEL) STLMLC STLMLC [id number] [facility] 2022-04-04 00:00:00 2022-04-04 00:00:00 OFFICE VISIT ESTAB PT LEVEL 4 STLMLC STLMLC [id number] [facility] 2022-04-04 00:00:00 2022-04-04 00:00:00 (TEL) STLMLC STLMLC [id number] [facility] 2022-04-04 00:00:00 2022-04-04 00:00:00 SUB ANNUAL [facility] VISIT STLMLC STLMLC [id number] [facility] 2022-03-30 00:00:00 2022-03-30 00:00:00 (TEL) STLMLC STLMLC [id number] [facility] 2022-03-28 00:00:00 2022-03-28 00:00:00 (TEL) STLMLC STLMLC [id number] [facility] 2022-03-25 06:17:00 2022-03-25 06:17:00 [facility] [id number] [facility] 2022-03-04 00:00:00 2022-03-04 00:00:00 (TEL) STLMLC STLMLC [id number] [facility] 2022-03-02 00:00:00 2022-03-02 00:00:00 OFFICE VISIT ESTAB PT LEVEL 4 STLMLC STLMLC [id number] [facility] 2022-02-16 00:00:00 2022-02-16 00:00:00 PREV VISIT EST AGE 40-64 STLMLC STLMLC [id number] [facility] 2022-01-25 00:00:00 2022-01-25 00:00:00 (TEL) STLMLC STLMLC [id number] [facility] 2022-01-19 18:00:00 2022-01-19 19:00:00 CAV Melony Mak 2.16.840. 1.973390. 4.6.55889 [id number] 2.16.840.1. 123633.4.6. [id number] SARAHXNOAH 8ZF [facility] Medical 2022-01-17 07:28:00 2022-01-17 07:28:00 [facility] [id number] [facility] 2022-01-05 23:20:00 2022-01-05 23:57:00 Emergency X DAVIDSON TORRES [facility] ERT [id number] [facility] 2022-01-05 23:20:00 2022-01-05 23:57:00 Emergency Davidson Torres [facility] 1.2.840.114 350.1.13.10 4.2.7.2.686 [id number] [facility] 2022-01-04 00:00:00 2022-01-04 00:00:00 OFFICE VISIT NEW PT LEVEL 4 STLMLC STLC [id number] [facility] 2021-12-04 00:00:00 2021-12-04 00:00:00 [facility] 1.2.840.114 350.1.13.10 4.2.7.2.686 [id number] [facility] 2021-11-30 08:40:00 2021-11-30 08:40:00 Outpatient R CARMEN AKHTAR [facility] [id number] [facility] 2021-11-30 08:40:00 2021-11-30 08:40:00 Outpatient R CARMEN AKHT[address] [facility] [id number] [facility] 2021-09-14 00:00:00 2021-09-14 00:00:00 Refill [facility] 1.2.840.114 350.1.13.10 4.2.7.2.686 [id number] [facility] 2021-09-10 08:32:00 2021-09-10 08:32:00 Outpatient DMG DMG [id number] [facility] 2021-09-08 00:00:00 2021-09-08 00:00:00 Telephone [facility]ht[facility] 1.2.840.114 350.1.13.10 4.2.7.2.686 [id number] [facility] 2021-08-18 13:40:00 2021-08-18 13:40:00 Outpatient R REENA ASTORGA [facility] [id number] [facility] 2021-08-18 13:40:00 2021-08-18 13:40:00 Outpatient R REENA [address] [facility] [id number] [facility] 2021-08-02 11:05:37 2021-08-02 12:30:39 Office Visit Carmen Akhtar Thierry [facility] 1.2.840.114 350.1.13.10 4.2.7.2.686 [id number] [facility] 2021-08-02 11:00:00 2021-08-02 12:30:39 Outpatient R CARMEN AKHTAR [facility] [id number] [facility] 2021-07-22 00:00:00 2021-07-22 00:00:00 Refill [facility] 1.2.840.114 350.1.13.10 4.2.7.2.686 [id number] [facility] 2021-07-13 00:00:00 2021-07-13 00:00:00 Telephone Carmen Akhtar [facility] 1.2.840.114 350.1.13.10 4.2.7.2.686 [id number] [facility] 2021-07-11 00:00:00 2021-07-11 00:00:00 Refill Carmen Akhtar [facility] 1.2.840.114 350.1.13.10 4.2.7.2.686 [id number] [facility] 2021-07-07 16:24:40 2021-07-07 16:39:51 [facility] 1.2.840.114 350.1.13.10 4.2.7.2.686 [id number] [facility] 2021-07-07 16:20:00 2021-07-07 16:20:00 Outpatient Carson HEDRICK FORTUNATO [facility] [id number] [facility] 2021-07-07 00:00:00 2021-07-07 00:00:00 Refill Carmen Akhtar [facility] 1.2.840.114 350.1.13.10 4.2.7.2.686 [id number] [facility] 2021-07-02 12:01:00 2021-07-02 12:01:00 Outpatient DMG DMG [id number] [place] [address] Medical [facility] 2021-07-02 00:00:00 2021-07-02 00:00:00 Telephone Carmen Akhtar [facility] 1.2.840.114 350.1.13.10 4.2.7.2.686 [id number] [facility] 2021-06-28 00:00:00 2021-06-28 00:00:00 Telephone Carmen Akhtar [facility] 1.2.840.114 350.1.13.10 4.2.7.2.686 [id number] [facility] 2021-06-25 00:00:00 2021-06-25 00:00:00 Telephone Carmen Akhtar [facility] 1.2.840.114 350.1.13.10 4.2.7.2.686 [id number] [facility] 2021-06-09 14:20:00 2021-06-09 14:20:00 Outpatient R POSADAS, RUSLAN [facility] [id number] [facility] 2021-06-03 19:30:00 2021-06-03 19:30:00 Outpatient R WILLIAM HERMAN STRAHIL [facility] [id number] [facility] 2021-06-01 15:30:00 2021-06-01 15:30:[address] [facility] [id number] [facility] 2021-05-06 10:57:09 2021-05-06 13:00:43 Office Visit Carmen Akhtar [facility] 1.2.840.114 350.1.13.10 4.2.7.2.686 [id number] [facility] 2021-05-06 10:40:00 2021-05-06 10:40:00 Outpatient R CARMEN AKHTAR [facility] [id number] [facility] 2021-04-20 15:00:00 2021-04-20 15:00:[address] [facility] [id number] [facility] 2021-04-09 08:20:00 2021-04-09 08:20:00 Outpatient R CARMEN AKHTAR [facility] [id number] [facility] 2021-03-15 15:40:00 2021-03-15 15:40:00 Outpatient R BENNETT P[address] [facility] [id number] [facility] 2021-03-12 19:30:00 2021-03-12 19:30:[address] [facility] [id number] [facility] 2021-03-04 09:00:00 2021-03-04 09:00:00 Outpatient R TON [address]ON [facility] [id number] [facility] 2020-12-06 11:40:00 2020-12-06 11:40:[address] [facility] [id number] [facility] 2020-11-08 11:05:00 2020-11-08 11:05:[address] [facility] [id number] [facility] Results Test Description Test Time Test Comments Results Resul t Comments Source XR CHEST 1 2024-01-11 4 16:37:52 ORDERING PHYSICIAN: MICHELLE MOSCOSO. HISTORY: confirm CVC placement PACU CXR TECHNIQUE: AP COMPARISON: None. FINDINGS: Lungs: ?A right IJ line terminates at the cavoatrial junction. Diffuseconfluent ground glass opacity and prominence of interstitial markings isnoted. Pleura: ?No effusion or pleural disease is seen. ?No pneumothorax. Mediastinum/Clementine: ?No masses or adenopathy. Heart: ?The heart is not enlarged. Other: ?No acute osseous abnormality is seen. [facility] XR CHEST 1 VW 2024-01-11 4 16:37:52 ORDERING PHYSICIAN: MICHELLE MOSCOSO. HISTORY: confirm CVC placement PACU CXR TECHNIQUE: AP COMPARISON: None. FINDINGS: Lungs: ?A right IJ line terminates at the cavoatrial junction. Diffuseconfluent ground glass opacity and prominence of interstitial markings isnoted. Pleura: ?No effusion or pleural disease is seen. ?No pneumothorax. Mediastinum/Clementine: ?No masses or adenopathy. Heart: ?The heart is not enlarged. Other: ?No acute osseous abnormality is seen. [facility] FL TIME OR (NON-REPORTABLE) 2024-01-11 4 16:08:10 These images do not require a Radiology diagnostic report. [facility] FL TIME OR (NON-REPORTABLE) 2024-01-11 4 16:08:10 These images do not require a Radiology diagnostic report. [facility] [id number] 14:34:33* Test Item Value Reference Range Interpretation Comme nts PH (test code = 7368586700) 7.24 7.32-7.42 L PCO2 MISAEL (test code = 5830393181) 37 41-51 L PO2 MISAEL (test code = 2221133001) 41 25-40 H AC VBE(BEAKER) (test code = 4643888146) -12.0 -3.0-3.0 HCO3 MISAEL (test code = 0960341023) 16 24-28 L %O2HB (test code = 7105735339) 68.0 % 95.0-98.0 L NA (test code = 8959198177) 140 mmol/L 135-145 K+ (test code = 5209878448) 4.1 mmol/L 3.5-5.0 AC CA IONZ (test code = 2943396189) 4.40 mg/dL 4.50-5.30 L GLUCOSE (test code = 6683485679) 109 mg/dL 70-110 AC Hematocrit (test code = 0221683185) 22 40-54 LL THB (test code = 6806856723) 7.5 g/dL 13.5-18.0 LL AC TCO2 MISAEL (test code = 3723269816) 17 mmol/L See_Comment L [Automated messa ge] The system which generated this result transmitted reference range: 24-29 mmol/L. The reference range was not used to interpret this result as normal/abnormal. Lab Interpretation (test code = 38922-3) [facility]normal [facility] - ONCE [id number] 14:25:00* Test Item Value Reference Range Interpretation Comme nts ABO & RH (test code = 20) A NEGATIVE IAT (test code = 1185) Negative [facility]CE [id number] 14:25:00* Test Item Value Reference Range Interpretation Comme nts ABO & RH (test code = 20) A NEGATIVE IAT (test code = 1185) Negative [facility] (NA, K, CL, CO2, GLUCOSE, BUN, CREATININE, CA)2024-02-02 14:17:45* Test Item Value Reference Range Interpretation Comme nts NA (test code = 2555202111) 138 mmol/L 135-145 K (test code = 1483942265) 4.3 mmol/L 3.5-5.0 CL (test code = 3631177889) 110 mmol/L 98-108 H CO2 TOTAL (test code = 1789275758) 17 mmol/L 23-31 L AGAP (test code = 0896020043) 11 2-16 BUN (test code = 6944053793) 88 mg/dL 7-23 H GLUCOSE (test code = 0529012408) 111 mg/dL 70-110 H CREATININE (test code = 2160-0) 11.26 mg/dL 0.60-1.25 H CALCIUM (test code = 0738180402) 7.3 mg/dL 8.6-10.6 L eGFR (test code = 20555-2) 4.9 mL/min/1.73m2 CKD-EPI eGFR (2020). Assuming creatinine has been stable day-to-day for at least three months, the eGFR indicates Category G5 (<= 14mL/min/1.73 m2) Lab Interpretation (test code = 23156-2) Abnormal [facility] Metabolic Panel (NA, K, CL, CO2, GLUCOSE, BUN, CREATININE, CA)2024-02-02 14:17:45* Test Item Value Reference Range Interpretation Comme nts NA (test code = 1344717681) 138 mmol/L 135-145 K (test code = 9738690359) 4.3 mmol/L 3.5-5.0 CL (test code = 2522014983) 110 mmol/L 98-108 H CO2 TOTAL (test code = 1733544482) 17 mmol/L 23-31 L AGAP (test code = 8624407076) 11 2-16 BUN (test code = 5590305221) 88 mg/dL 7-23 H GLUCOSE (test code = 5587601420) 111 mg/dL 70-110 H CREATININE (test code = 2160-0) 11.26 mg/dL 0.60-1.25 H CALCIUM (test code = 9648891165) 7.3 mg/dL 8.6-10.6 L eGFR (test code = 56894-2) 4.9 mL/min/1.73m2 CKD-EPI eGFR (2020). Assuming creatinine has been stable day-to-day for at least three months, the eGFR indicates Category G5 (<= 14mL/min/1.73 m2) Lab Interpretation (test code = 30975-2) Abnormal [facility] (AUTOMATED)2024-02-02 13:35:23* Test Item Value Reference Range Interpretation Comme nts POCT GLU (test code = 5303384207) 127 mg/dL 70-110 H Lab Interpretation (test cod e = 97464-3) Abnormal [facility] GLUCOSE (AUTOMATED)2024-02-02 13:35:23* Test Item Value Reference Range Interpretation Comme nts POCT GLU (test code = 1291748681) 127 mg/dL 70-110 H Lab Interpretation (test cod e = 34342-0) Abnormal [facility]ST 1 [id number] 01:53:52ORDERING PHYSICIAN: GRADY THRASHER CLINICAL HISTORY:shortness of breath TECHNIQUE:AP chest radiograph. COMPARISON:None. FINDINGS:No focal pulmonary consolidation, pleural effusion or pneumothorax. Heartsize within normal limits. Visualized bones are unremarkable.[facility] HospitalTroponin [id number] 01:52:31* Test Item Value Reference Range Interpretation Comme nts TROPONIN I (test code = 0178345263) 0.028 ng/mL <=0.034 ALESIA (test code = ALESIA) Reference (Normal) Range (defined by the 99th percentile reference limit): <= 0.034 ng/mL Note: Cardiac troponin begins to rise 3-4 hours after the onset of ischemia. Repeat in 4-6 hours if the sample was drawn within 3-4 hours of the onset of the symptom and found normal. Diagnosis of myocardial injury is made with acute changes in cTn concentrations with at least one serial sample above the 99th percentile upper reference limit (URL), taken together with the patient's clinical presentation. Biotin has been reported to cause a negative bias, interpret results relative to patient's use of biotin. Lab Interpretation (test code = 87448-6) Normal [facility] [id number]-Buk9097-10-06 01:50:09* Test Item Value Reference Range Interpretation Comme nts NT-proBNP (test code = 39708-5) 8290 pg/mL <=125 H ALESIA (test code = ALESIA) Positive: Heart Failure Likely Lab Interpretation (test code = 73512-6) Abnormal [facility] Met[facility] Panel (93997)2023-09-16 01:41:29* Test Item Value Reference Range Interpretation Comme nts NA (test code = 2844327766) 138 mmol/L 135-145 K (test code = 1145164751) 4.5 mmol/L 3.5-5.0 CL (test code = 4579127936) 107 mmol/L 98-108 CO2 TOTAL (test code = 0364151852) 14 mmol/L 23-31 L AGAP (test code = 8133501206) 17 2-16 H BUN (test code = 5787963623) 59 mg/dL 7-23 H GLUCOSE (test code = 8161248757) 134 mg/dL 70-110 H CREATININE (test code = 3354312927) 7.17 mg/dL 0.60-1.25 H TOTAL BILI (test code = 7999903919) 0.6 mg/dL 0.1-1.1 CALCIUM (test code = 6671419125) 9.2 mg/dL 8.6-10.6 T PROTEIN (test code = 8297512196) 8.4 g/dL 6.3-8.2 H ALBUMIN (test code = 8646786925) 4.2 g/dL 3.5-5.0 ALK PHOS (test code = 4117301785) 86 U/L 34-122 ALTv (test code = 1742-6) 13 U/L 5-50 AST(SGOT) (test code = 7889005729) 20 U/L 13-40 eGFR (test code = 41443-6) 8.5 mL/min/1.73m2 CKD-EPI eGFR (2020). Assuming creatinine has been stable day-to-day for at least three months, the eGFR indicates Category G5 (<= 14mL/min/1.73 m2) Lab Interpretation (test code = 79564-2) Abnormal [facility] with [id number] 01:03:42* Test Item Value Reference Range Interpretation Comme nts WBC (test code = 6690-2) 5.92 See_Comment [Automated [employer] ge] The system which generated this result [...] 33.3 g/dL 31.2-35.0 RDW-SD (test code = 53684-7) 37.3 fL 38.5-51.6 L RDW-CV (test code = 788-0) 12.5 % 12.1-15.4 PLT (test code = 777-3) 244 See_Comment [Automated messa ge] The system which generated this result transmitted reference range: 150 - 328 10*3/?L. The reference range was not used to interpret this result as normal/abnormal. MPV (test code = 74430-5) 10.5 fL 9.8-13.0 NRBC/100 WBC (test code = 0008781654) 0.0 See_Comment [Automated [employer] ssage] The system which generated this result transmitted reference range: 0.0 - 10.0 /100 WBCs. The reference range was not used to interpret this result as normal/abnormal. NRBC x10^3 (test code = 0411636812) See_Comment [Automated messa ge] The system which generated this result transmitted reference range: 10*3/?L. The reference range was not used to interpret this result as normal/abnormal. GRAN MAT (NEUT) % (test code = 770-8) 67.7 % IMM GRAN % (test code = 7777742918) 0.20 % LYMPH % (test code = 736-9) 21.6 % MONO % (test code = 5905-5) 8.3 % EOS % (test code = 713-8) 1.5 % BASO % (test code = 706-2) 0.7 % GRAN MAT x10^3(ANC) (test code = 2273067883) 4.01 10*3/uL 1.99-6.95 IMM GRAN x10^3 (test code = 4332968974) 0.00-0.06 LYMPH x10^3 (test code = 731-0) 1.28 10*3/uL 1.09-3.23 MONO x10^3 (test code = 742-7) 0.49 10*3/uL 0.36-1.02 EOS x10^3 (test code = 711-2) 0.09 10*3/uL 0.06-0.53 BASO x10^3 (test code = 704-7) 0.04 10*3/uL 0.01-0.09 Lab Interpretation (test code = 63418-4) Abnormal [facility] HospitalLaiaic Acid Whole Avput7830-25-62 00:55:02* Test Item Value Reference Range Interpretation Comme [facility] LACTIC ACID (test code = 4604321801) 1.40 mmol/L 0.50-2.20 Lab Interpretation (test cod e = 56082-2) Normal [facility])2023-09-16 00:53:36* Test Item Value Reference Range Interpretation Comme nts POCT GLU (test code = 6348099689) 131 mg/dL 70-110 H Lab Interpretation (test cod e = 19487-2) Abnormal [facility] HospitalHEMOGLOBIN [id number] 00:00:00* Test Item Value Reference Range Interpretation Comme nts A1C (test code = 4548-4) 8.2 HEMOGLOBIN [id number] 00:00:00* Test Item Value Reference Range Interpretation Comme nts A1C (test code = 4548-4) 8.2 HEMOGLOBIN [id number] 00:00:00* Test Item Value Reference Range Interpretation Comme nts A1C (test code = 4548-4) 8.7 Lipid Panel w/ Chol/HDL [id number] 00:00:00* Test Item Value Reference Range Interpretation Comme nts Cholesterol, Total (test code = 2093-3) 143 mg/dL See_Comment [Automated message] The system which generated this result transmitted reference range: 100-199 mg/dL. The reference range was not used to interpret this result as normal/abnormal. Triglycerides (test code = 2571-8) 152 mg/dL See_Comment H [Automated [employer]] The system which generated this result transmitted reference range: 0-149 mg/dL. The reference range was not used to interpret this result as normal/abnormal. HDL Cholesterol (test code = 2085-9) 32 mg/dL See_Comment L [Automated [employer]] The system which generated this result transmitted reference range: >39 mg/dL. The reference range was not used to interpret this result as normal/abnormal. T. Chol/HDL Ratio (test code = 9830-1) 4.5 ratio See_Comment [Automated [employer]] The system which generated this result transmitted reference range: 0.0-5.0 ratio. The reference range was not used to interpret this result as normal/abnormal. UA/M w/rflx Culture, [id number] 00:00:00* Test Item Value Reference Range Interpretation Comme nts Specific Innis (test code = 2965-2) 1.020 1.005-1.030 pH (test code = 5803-2) 5.5 5.0-7.5 Urine-Color (test code = 5778-6) Yellow Yellow Appearance (test code = 5767-9) Clear Clear WBC Esterase (test code = 5799-2) Negative Negative Protein (test code = 36961-2) 4+ Negative/Trace A Glucose (test code = 2349-9) Trace Negative A Ketones (test code = 2514-8) Trace Negative A Occult Blood (test code = 5794-3) Negative Negative Bilirubin (test code = 5770-3) Negative Negative Urobilinogen,Semi-Qn (test code = 16398-7) 1.0 mg/dL See_Comment [Automated message] The system which generated this result transmitted reference range: 0.2-1.0 mg/dL. The reference range was not used to interpret this result as normal/abnormal. Nitrite, Urine (test code = 5802-4) Negative Negative Microscopic Examination (test code = 16487-4) See below: Urinalysis Reflex (test code = UNLOINC) Microalbumin/Creat Ratio, Random [id number] 00:00:00* Test Item Value Reference Range Interpretation Comme [facility] Creatinine, Urine (test code = 2161-8) 147.5 mg/dL Not Estab. mg/dL Albumin, Urine (test code = 23354-1) 4494.6 ug/mL Not Estab. ug/mL Alb/Creat Ratio (test code = 85499-2) 3047 mg/g creat See_Comment H [Automated messa ge] The system which generated this result transmitted reference range: 0-29 mg/g creat. The reference range was not used to interpret this result as normal/abnormal. Hemoglobin [id number] 00:00:00* Test Item Value Reference Range Interpretation Comme [facility] Hemoglobin A1c (test code = 4548-4) 9.1 % See_Comment H [Automated messa ge] The system which generated this result transmitted reference range: 4.8-5.6 %. The reference range was not used to interpret this result as normal/abnormal. Comp. Metabolic Panel (14) (CMP)2022-02-16 00:00:00* Test Item Value Reference Range Interpretation Comme [facility] Glucose (test code = 2345-7) 223 mg/dL [...] result as normal/abnormal. Calcium (test code = 62831-0) 9.3 mg/dL See_Comment [Automated messa ge] The [...] as normal/abnormal. Globulin, Total (test code = 89186-7) 3.0 g/dL See_Comment [Automated messa ge] The [...] interpret this result as normal/abnormal. Uric Acid, [id number] 00:00:00* Test Item Value Reference Range Interpretation Comme nts Uric Acid (test code = 3084-1) 6.8 mg/dL See_Comment [Automated messa ge] The system which generated this result transmitted reference range: 3.8-8.4 mg/dL. The reference range was not used to interpret this result as normal/abnormal. CBC With Differential/[id number] 00:00:00* Test Item Value Reference Range Interpretation Comme nts WBC (test code = 6690-2) 6.8 x10E3/uL See_Comment [Automated [employer] ge] The system which generated this result transmitted reference range: 3.4-10.8 x10E3/uL. The reference range was not used to interpret this result as normal/abnormal. RBC (test code = 789-8) 4.69 x10E6/uL See_Comment [Automated [employer] ge] The system which generated this result [...] as normal/abnormal. Immature Granulocytes (test code = 09681-5) 0 % Not Estab. % Immature Grans (Abs) (test code = 59714-7) 0.0 x10E3/uL See_Comment [Automated message] The system which generated this result transmitted reference range: 0.0-0.1 x10E3/uL. The reference range was not used to interpret this result as normal/abnormal. NRBC (test code = 75397-6) Hematology Comments: (test code = 88538-1) Vitamin D, 01-Tbqzfae7554-25-08 00:00:00* Test Item Value Reference Range Interpretation Comme [facility] Vitamin D, 25-Hydroxy (test code = 1989-3) 17.9 ng/mL See_Comment L [Automated messa ge] The system which generated this result transmitted reference range: 30.0-100.0 ng/mL. The reference range was not used to interpret this result as normal/abnormal. TSH reflex to [id number] 00:00:00* Test Item Value Reference Range Interpretation Comme [facility] TSH (test code = 21218-3) 2.610 uIU/mL See_Comment [Automated [employer]] The system which generated this result transmitted reference range: 0.450-4.500 uIU/mL. The reference range was not used to interpret this result as normal/abnormal. COMP. METABOLIC PANEL (62976)2022-01-06 04:54:06* Test Item Value Reference Range Interpretation Comme nts NA (test code = 4687101811) 138 mmol/L 135-145 K (test code = 1914413502) 4.5 mmol/L 3.5-5.0 CL (test code = 2463838378) 103 mmol/L 98-108 CO2 TOTAL (test code = 8032423891) 26 mmol/L 23-31 AGAP (test code = 8380185174) 2-16 BUN (test code = 9953655367) 33 mg/dL 7-23 H GLUCOSE (test code = 9422153624) 236 mg/dL 70-110 H CREATININE (test code = 9237757530) 1.95 mg/dL 0.60-1.25 H TOTAL BILI (test code = 2806711117) 0.4 mg/dL 0.1-1.1 CALCIUM (test code = 5400728354) 8.7 mg/dL 8.6-10.6 T PROTEIN (test code = 3345262262) 6.9 g/dL 6.3-8.2 ALBUMIN (test code = 2570254827) 3.7 g/dL 3.5-5.0 ALK PHOS (test code = 9205206275) 61 U/L 34-122 ALTv (test code = 1742-6) 28 U/L 5-50 AST(SGOT) (test code = 6533509587) 30 U/L 13-40 eGFR (test code = 0572182193) mL/min/1.73m2 ALESIA (test code = ALESIA) Association [...] imaging tests). Lab Interpretation (test code = 97926-2) Abnormal [facility] WITH LFEV9486-27-53 04:42:08* Test Item Value Reference Range Interpretation Comme nts WBC (test code = 6690-2) See_Comment [[employer]] The system which generated this result transmitted reference range: 4.20 - 10.70 10*3/?L. The reference range was not used to interpret this result as normal/abnormal. RBC (test code = 789-8) See_Comment [[employer]] The system which generated this result transmitted [...] 32.8 g/dL 31.2-35.0 RDW-SD (test code = 78512-7) 37.2 fL 38.5-51.6 L RDW-CV (test code = 788-0) 12.4 % 12.1-15.4 PLT (test code = 777-3) See_Comment [Automated [employer]] The system which generated this result transmitted reference range: 150 - 328 10*3/?L. The reference range was not used to interpret this result as normal/abnormal. MPV (test code = 99829-0) 10.3 fL 9.8-13.0 NRBC/100 WBC (test code = 2888151434) See_Comment [Automated [employer]] The system which generated this result transmitted reference range: 0.0 - 10.0 /100 WBCs. The reference range was not used to interpret this result as normal/abnormal. NRBC x10^3 (test code = 0370003341) <0.01 See_Comment [Automated [employer]] The system which generated this result transmitted reference range: 10*3/?L. The reference range was not used to interpret this result as normal/abnormal. GRAN MAT (NEUT) % (test code = 770-8) 64.6 % IMM GRAN % (test code = 0864867310) 0.30 % LYMPH % (test code = 736-9) 22.8 % MONO % (test code = 5905-5) 8.0 % EOS % (test code = 713-8) 3.6 % BASO % (test code = 706-2) 0.7 % GRAN MAT x10^3(ANC) (test code = 2655989650) 4.82 10*3/uL 1.99-6.95 IMM GRAN x10^3 (test code = 9857277770) <0.03 0.00-0.06 LYMPH x10^3 (test code = 731-0) 1.70 10*3/uL 1.09-3.23 MONO x10^3 (test code = 742-7) 0.60 10*3/uL 0.36-1.02 EOS x10^3 (test code = 711-2) 0.27 10*3/uL 0.06-0.53 BASO x10^3 (test code = 704-7) 0.05 10*3/uL 0.01-0.09 Lab Interpretation (test code = 71034-3) Abnormal [facility] History and Physical Notes Date/Time Note Provider Source 2024-02-02 08:12:56 3997-02-60F69:12:56F ormatting of this note might be different from the original.Surgery H&P Update02/02/2024 8:13 AMJeevan Ordaz Jr. is a 53 year old male who was seen and examined today in the preoperative area. No interval changes to the patient's history and physical exam, which was completed on 01/22/24. It has been reviewed by Dr. Moscoso. No visits to PCP or ED in the interim. No changes in medications or physical exam. The risks, benefits and alternatives to the procedure were reviewed with the patient again today. The patient's questions were answered, voiced understanding and agreement. Informed written consent was obtained. See full H&P note below for review.Denisse Cabrera MD[facility] General Surgery02/02/2024 8:13 AM ssociated attestation - Michelle Moscoso MD - 02/02/2024 9:22 AM CDT Attending Attestation:I personally evaluated and examined the patient on 02/02/[address] Cabrera's interval note as written. I actively participated in the decision-making process. Please see the resident's note for additional details. No interval changes, consent is signed and in chart, proceed with tunneled HD catheter placement.Michelle Moscoso M.D.02/02/2024 09:21Source Note - Michelle Moscoso MD - 01/22/2024 1:00 PM CDT GENERAL SURGERY CLINIC NOTEReason for Visit / Chief Complaint: Tunneled HD catheterHistory of Present Illness: Jeevan Ordaz Jr. is a 53 year old male with a PMH significant for HTN, HLD, DM, diabetic retinopathy, and CKD stage presents to discuss tunneled HD catheter placement. I spoke with Dr. Crawford who would like to initiate HD soon. The patient is amenable to HD. He did undergo incision and drainage of a left parapharyngeal abscess in 2018, otherwise he has not had any additional neck surgery.Past Medical History:Past Medical History:Diagnosis DateDepressionDiabetes mellitusDiabetic retinopathyED (erectile dysfunction)HyperlipidemiaHypertensionLega lly blindPast Surgical History:Past Surgical History:Procedure Laterality DateDIRECT LARYNGOSCOPY N/A 01/08/2018Surgeon: Petey Looney MD; [facility] SURGERYINCISION AND DRAINAGE OF ABSCESS Left 01/10/2018Surgeon: Nitish Bajwa MD; [facility]:No Known AllergiesMedications:Patient's MedicationsSTART taking these medicationsNo medications on fileCONTINUE taking these medications which have NOT CHANGEDAMLODIPINE 10 MG TABLET Take 1 tablet by mouth in the morning.ATENOLOL 25 MG TABLET Take 1 tablet by mouth at bedtime.ATORVASTATIN 20 MG TABLET Take 20 mg by mouth at bedtime.BIMATOPROST (LUMIGAN) 0.01 % OPHTHALMIC DROPS Place 1 Drop in each eye in the morning.BLOOD SUGAR DIAGNOSTIC STRIP Check sugars 2-3 times [...] sugars at least 2 times a day. ACCU-CHEKCALCIUM ACETATE,PHOSPHAT BIND, 667 MG CAPSULE Take 1 capsule by mouth.DOXAZOSIN 2 MG TABLET Take 1 tablet by mouth at bedtime.ERGOCALCIFEROL, VITAMIN D2, (VITAMIN D2) 1,250 MCG (50,000 UNIT) CAPSULE Take 1 capsule by mouth weekly.FLUTICASONE PROPIONATE 50 MCG/ACTUATION NASAL SPRAY Use 1 [place] in each nostril.INSULIN GLARGINE (LANTUS U-100 INSULIN) 100 UNIT/ML INJECTION [...] (two) times daily.LANCETS (FREESTYLE LANCETS) 28 GAUGE [facility] USE ONE LANCET TO CHECK BLOOD GLUCOSE 2 TO 3 TIMES A DAYLATANOPROST 0.005 % OPHTHALMIC DROPS Place 1 Drop in both eyes every evening.LIRAGLUTIDE (VICTOZA 2-CUCO) 0.6 MG/0.1 ML (18 MG/3 ML) INJECTION inject 1.2 mg under the skin.LISINOPRIL-HYDROCHLOROTHIAZIDE 20-25 MG PER TABLET Take 1 tablet by mouth daily.METFORMIN ER 500 MG 24 HR TABLET Take 2 tablets by mouth 2 (two) times daily.PREDNISOLONE ACETATE 1 % OPHTHALMIC SUSPENSION DROPS Place 1 Drop in both eyes in the morning.SILDENAFIL (VIAGRA) 100 MG TABLET Take 1 tablet by mouth daily.SODIUM BICARBONATE 650 MG TABLET TAKE 1 TABLET BY MOUTH IN THE MORNING AND 1 AT NOON AND 1 IN THE EVENING WITH MEALSTRAZODONE 50 MG TABLET Take 1 tablet by mouth.START taking Modified Medications as PrescribedNo medications on fileSTOP taking these medicationsNo medications on fileCurrent Outpatient MedicationsMedication Sig Dispense RefillamLODIPine 10 mg tablet Take 1 tablet by mouth in the morning.atenoloL 25 mg tablet Take 1 tablet by mouth at bedtime.calcium acetate,phosphat bind, 667 mg capsule Take 1 capsule by mouth.fluticasone propionate 50 mcg/actuation nasal spray Use 1 Charlotte in each nostril.latanoprost 0.005 % ophthalmic drops Place 1 Drop in both eyes every evening.liraglutide (VICTOZA 2-CUCO) 0.6 mg/0.1 mL (18 mg/3 mL) injection inject 1.2 mg under the skin.sodium bicarbonate 650 mg tablet TAKE 1 TABLET BY MOUTH IN THE MORNING AND 1 AT NOON AND 1 IN THE EVENING WITH MEALStraZODone 50 mg tablet Take 1 tablet by mouth.lancets (FREESTYLE LANCETS) 28 gauge [facility] USE ONE LANCET TO CHECK BLOOD GLUCOSE 2 TO 3 TIMES A DAY 100 Each 0blood sugar diagnostic strip Check sugars 2-3 times a day. Dx Code E11.9. Brand per insurance. Patient has uncontrolled diabetes and needs to check sugars at least 2 times a day. ACCU-CHEK- same brand as meter 100 Strip 11Blood-Glucose Meter Kit Check sugars 2-3 times a day. Dx Code E11.9. Brand per insurance. Patient has uncontrolled diabetes and needs to check sugars at least 2 times a day. ACCU-CHEK 1 Kit 0sildenafiL (VIAGRA) 100 mg tablet Take 1 tablet by mouth daily. 12 tablet 1doxazosin 2 mg tablet Take 1 tablet by mouth at bedtime. 30 tablet 3lisinopriL-hydrochlorothiazide 20-25 mg per tablet Take 1 tablet by mouth daily. 90 tablet 3metformin ER 500 mg 24 hr tablet Take 2 tablets by mouth 2 (two) times daily. 360 tablet 3Insulin Regular Human (NOVOLIN R FLEXPEN) 100 unit/mL (3 mL) InPn Check blood sugars fasting before meals and 2 hours after 1 meal of the day. If sugars are 180-200 take 6 units of insulin, 201-250 take 8 units, 251-300 take 10 units, 301-350 take 12 units, 351-400 take 14 units, 401-450 take 16 units, 451-500 take 18 units, if >500 take 20 units, recheck in 2 hours. If still high call the clinic. 3 Syringe 3ergocalciferol, vitamin d2, (VITAMIN D2) 1,250 mcg (50,000 unit) capsule Take 1 capsule by mouth weekly. 12 capsule 1insulin syr/ndl U100 half adri 0.3 mL 30 gauge x 1/2" Syrg 1 Syringe 2 (two) times daily. 100 Syringe 3atorvastatin 20 mg tablet Take 20 mg by mouth at bedtime.bimatoprost (LUMIGAN) 0.01 % ophthalmic drops Place 1 Drop in each eye in the morning.insulin glargine (LANTUS U-100 INSULIN) 100 unit/mL injection inject 20 Units under the skin daily. 10 mL 1prednisoLONE acetate 1 % ophthalmic suspension drops Place 1 Drop in both eyes in the morning.No current facility-administered medications for this visit.Family History:Family HistoryProblem Relation Age of OnsetDiabetes MotherHypertension MotherStroke MotherDiabetes Maternal GrandmotherHypertension Maternal GrandmotherDiabetes Maternal AuntHypertension Maternal AuntDiabetes Maternal UncleHypertension Maternal UncleAlcohol/Drug FatherSocial History:Social HistorySocioeconomic HistoryMarital status: SeparatedSpouse name: Brigette of children: 5Highest education level: 8th gradeOccupational HistoryOccupation: DisabledTobacco UseSmoking status: FormerCurrent packs/day: 1.00Average packs/day: 1 pack/day for 5.0 years (5.0 ttl pk-yrs)Types: CigarettesSmokeless tobacco: NeverSubstance and Sexual ActivityAlcohol use: YesAlcohol/week: 12.0 standard drinks of alcoholTypes: 12 Cans of beer per weekComment: was drinking daily, now a couple days a weekDrug use: YesTypes: Marijuana, CocaineComment: smoked majuriuana and did cocaine in 20s but not anymoreReview of Systems:A 14 point ROS was obtained, only positive responses are in BOLDConstitutional: Fever, chills, loss of appetite, fatigue, unexplained weight loss, unexplained weight gain, weaknessHead/Ears/Nose/Mouth/Throat:Head: Headache, head injury, neck pain, neck stiffnessEars: Ear discharge, hearing loss, ear pain, tinnitusNose: Nose bleeds, sinus congestion, runny nose, postnasal drip, sneezing, sinus pressureMouth: Dental problems, mouth sores, sore tongue, dry mouthThroat: Sore throat, trouble swallowing, voice changeEyes: Discharge, itching, pain, redness, pain, vision disturbance, blurred vision, vision loss, cataracts, glaucomaCV: Chest pain, palpitations, arrhythmias, dyspnea on exertion, othopnea, claudication, edema, coronary artery disease/history of MIRespiratory: Cough, sputum production, hemoptysis, wheezing, shortness of breath, sleep apneaGI: Dysphagia, abdominal pain, abdominal distention, indigestion, nausea, vomiting, diarrhea, constipation, hematemesis, blood in stool or dark stool, rectal bleeding, rectal pain, jaundiceGU: Frequency, urgency, pain or burning with urination, flank pain, hematuria, incontinence, change in urinary stream, discharge, bleeding, pelvic pain, irregular mensesMusculoskeletal: Muscle pain, joint pain, joint swelling, back pain, stiffness, weakness, limitation of motion, arthritis, traumaIntegumentary/Breast:Integumentary: Rash, itching, pigmented lesions, lumps, tenderness, swelling, woundBreast: Pain, lumps, nipple discharge, skin changesNeurological: Weakness, sensory changes, syncope, seizures, headache, numbness, tingling, tremor, traumaHematologic/Lymphatic:Hematologic: Bleeding tendency, easy bruising, history of blood clots, anticoagulation/antiplatelet therapyLymphatic: LymphadenopathyEndocrine: Polyuria, polydipsia, polyphagia, heat or cold intolerance, hair loss, appetite changesAllergic/Immunologic:Allergic: Allergic reactionsImmunologic: Recurrent infectionsPsychiatric: Agitation, confusion, decreased concentration, hallucinations, anxiety, self-injury, sleep disturbance, suicidal ideationPhysical Exam:BP (!) 174/99 | Pulse 77 | Temp 36.3 ?C (97.3 ?F) | Resp 20 | Ht 1.727 m (5' 8") | Wt 70.8 kg (156 lb) | SpO2 99% | BMI 23.72 kg/m?Constitutional: Awake, alert, oriented, in no acute distressHead: Normocephalic, atraumaticEyes: Extraocular movements grossly intact, pupils equal and reactive to light and accomodation, anicteric scleraeEars: Normal external examNose: Normal external examMouth: Moist mucous membranesNeck: Supple, no jugular venous distention, well healed scar to anterior left neckCardiovascular: Hemodynamically normalRespiratory: Symmetry of chest wall motion, no respiratory distressMusculoskeletal: Normal tone and strength, normal range of motionNeurologic: CN II through XII grossly intact, no focal deficitsSkin: Warm and dry, capillary refill <2 seconds, no jaundice, rashes, lesions, or erythemaPsychiatric: Appropriate mood and affect, no obvious deficits of insight or judgmentLabs:Latest Reference Range & Units 09/15/23 18:48WBC x10^3 4.20 - 10.70 10*3/?L 5.92RBC x10^6 4.26 - 5.52 10*6/?L 4.05 (L)HGB 12.2 - 16.4 g/dL 11.1 (L)HCT 38.4 - 49.3 % 33.3 (L)MCV 81.7 - 95.6 fL 82.2MCH 26.1 - 32.7 pg 27.4MCHC 31.2 - 35.0 g/dL 33.3RDW-SD 38.5 - 51.6 fL 37.3 (L)RDW-CV 12.1 - 15.4 % 12.5PLT x10^3 150 - 328 10*3/?L 244MPV 9.8 - 13.0 fL 10.5NRBC /100 WBC 0.0 - 10.0 /100 WBCs 0.0NRBC x10^3 10*3/?L <0.01GRAN MAT (NEUT) % % 67.7IMM GRAN % % 0.20LYMPH% % 21.6MONO % % 8.3EOS % % 1.5BASO % % 0.7GRAN MAT x10^3(ANC) 1.99 - 6.95 10*3/uL 4.01IMM GRAN x10^3 0.00 - 0.06 10*3/uL <0.03LYMPH x10^3 1.09 - 3.23 10*3/uL 1.28MONO x10^3 0.36 - 1.02 10*3/uL 0.49EOS x10^3 0.06 - 0.53 10*3/uL 0.09BASO x10^3 0.01 - 0.09 10*3/uL 0.04NA 135 - 145 mmol/L 138K 3.5 - 5.0 mmol/L 4.5CL 98 - 108 mmol/L 107CO2 TOTAL 23 - 31 mmol/L 14 (L)AGAP 2 - 16 17 (H)BUN 7 - 23 mg/dL 59 (H)GLUCOSE 70 - 110 mg/dL 134 (H)CREATININE 0.60 - 1.25 mg/dL 7.17 (H)eGFR mL/min/1.73m2 8.5TOTAL BILI 0.1 - 1.1 mg/dL 0.6CALCIUM 8.6 - 10.6 mg/dL 9.2T PROTEIN 6.3 - 8.2 g/dL 8.4 (H)ALBUMIN 3.5 - 5.0 g/dL 4.2TROPONIN I <=0.034 ng/mL 0.028NT-proBNP <=125 pg/mL 8,290 (H)ALK PHOS 34 - 122 U/L 86ALTv 5 - 50 U/L 13AST(SGOT) 13 - 40 U/L 01CZFI-EdD-4 Rapid ID NOW Not Detected Not DetectedRapid Influenza A Negative NegativeRapid Influenza B Negative NegativeCOVID DMT Interpretation Interpretation/Recommendations:Molecular NAAT Tests for Active Infection with the SARS-CoV-2 Virus:The patient has currently tested negative for the SARS-CoV-2 virus that causes COVID-19 illness. This may indicate that the patient does not have an active infection with the SARS-CoV-2 virus. However, infection is not completely ruled out since false negative results for molecular NAAT testing using a nasopharyngeal sample have been reported in variable percentages of patients with acute COVID-19 illness. This is mostly due to timing of sample collection in relation to illness onset (either too early or too late), low SARS-CoV-2 viral load in the upper respiratory tract (which may be related to timing of sample collection), and nasopharyngeal sampling deficiencies rather than inherent test capabilities.If the patient has symptoms concerning for COVID-19 illness, the patient should still isolate for at least 5 days and a repeat NAAT test (PCR, Rapid ID Now, etc.) is recommended. Additionally, if the patient is symptomatic but tests negative for COVID-19, influenza and other upper respiratory infections (such as common cold viruses and RSV) should be considered.Lastly, if the patient was exposed to COVID-19, current CDC guidelines recommend wearing a high-quality mask when around others for 10 days with testing on day 5 in lieu of quarantining. -Interpretation Result Comments:These interpretation comments are based upon the following COVID-19 tests the patient has had at [facility]: molecular nucleic acid amplification tests (NAAT) (specifically PCR testing and Rapid ID Now testing) and antibody tests. It does not take into account antigen testing or any additional testing that a patient may have had outside of the [facility] medical record.COVID Results SARS-CoV-2 Rapid ID NOW (no units)Date Value09/15/2023 Not Zlgrddiu28/06/2021 Not Iuwymbqn15/09/2020 Not Detected (L): Data is abnormally low(H): Data is abnormally highLatest Reference Range & Units 09/15/23 18:49LACTIC ACID WHOLE BLOOD 0.50 - 2.20 mmol/L 1.40Latest Reference Range & Units 09/15/23 18:52POCT GLU 70 - 110 mg/dL 131 (H)(H): Data is abnormally highLatest Reference Range & Units 09/15/23 19:26COLOR Yellow YellowAPPEARANCE Clear ClearSP GRAVITY 1.003 - 1.030 1.011PH 4.8 - 8.0 5.0PROTEIN Negative 500 mg/dL !GLU U QUAL Normal 50 mg/dL !KETONES Negative 5 mg/dL !BILIRUBIN Negative NegativeBLOOD Negative 1+ !UROBILIN Normal NormalNITRITE Negative NegativeLEUK JAQUI Negative NegativeRBC/HPF 0 - 3 HPF 2WBC/HPF 0 - 5 HPF 1BACTERIA Negative Few !SQ EPITH HPF <1SPERM <=1 HPF <1!: Data is abnormalAssessment: Jeevan Ordaz Jr. is a 53 year old male with a PMH significant for HTN, HLD, DM, diabetic retinopathy, and CKD stage 5 who presents for HD access. Will plan for tunneled HD catheter placement with US and fluoro on 01/30/2024.Plan:Schedule tunneled HD catheter placement, risks/benefits discussed, consent obtained in clinicISTAT on AM of Tam Moscoso M.D.01/22/2024 13:08 54405-6Kqpboycbm History and physical [id number], Laurel1.2.840.891476.1.13.104.2.7.2.308244 HivublxaPiakqaSI0257-12-83F22:22:15Attendi ng History and physical noteTXT1.2.840.923448.1.13.104.2.7.2.87356 9|[id number] for patient tewk92969-7Idfkpfu and physical noteLNNARRATIVEFormatted C-CDA narrative text[address] [id number] IZRWXCIDYJPMKBPE6067-27-21Q75:22:151.2.840 .204153.1.72.3.15|1.2.840.544294.1.13.104. 2.7.2.727879_[id number] [facility] Notes Date/Time Note Provider Source 2024-02-07 08:57:38 2641-35-22H60:57:38Formatting of this no te might be different from the original.Spoke with patient and spouse. Educated dialysis nurse should be maintaining dressing changes during dialysis. States they have not been set up for dialysis s/p permacath placement. Instructed patient to reach out to nephrology (Dr Crawford) to set up dialysis. Patient and spouse verbalized understanding. Patient to contact the clinic if unable to get in with dialysis. 63633-5Zuilbrfxj encounter SzbjCR0392-40-96D57:56:21Telephone encounter NoteTXT1.2.840.693808.1.13.104.2.7.2.068210|2110 866129FYUranjmfbi for patient pvwo13413-6EvtiGXHUKBHJAJQFrfkzohlk C-CDA narrative [id number] A Hall RNUT24 [address] [id number] PNQGIEFIBD0713-57-29E23:56:211.2.840.387179.1.72 .3.15|1.2.840.440556.1.13.104.2.7.2.727879_21100 88333 Deborah Kaplan RN [facility] 2024-02-06 17:15:31 7932-05-01R11:15:31Formatting of this no te might be different from the original.Jeevan Ordaz JrGerald is a 53 year old male pt and spouse are calling to check the status of the call back.Kathy Johnston 02/06/2024 5:16 PM 36827-2Iaztpooal encounter JigaNZ5100-51-76X89:16:04Telephone encounter NoteTXT1.2.840.402150.1.13.104.2.7.2.504586|2109 730368AFXzzxggofm for patient soss22886-1ZhmcLDONINUZSBGYvcwkaucv C-CDA narrative [id number] A Perez[address] Lllx[id number] IBGOSXPJSN3874-02-66J93:16:041.2.840.348815.1.72 .3.15|1.2.840.440007.1.13.104.2.7.2.727879_21095 95235 Kathy Johnston [facility] 2024-02-06 16:26:37 3926-71-67P95:26:37Formatting of this no te might be different from the original.Pt had surgery with Dr. Moscoso 02/01/25 and is calling stating he is needing his dressing changed and was not given any supplies. Pt has PO appt 02/15/24, please advise and assist. 45206-6Kdlwtltuv encounter XrotQS8010-82-82T10:29:16Telephone encounter NoteTXT1.2.840.126419.1.13.104.2.7.2.404889|2109 399608NWIkvjbspze for patient qjbt63038-6LpwjFNXTSVXOLVZAwbuumqxx C-CDA narrative [id number] E BuckheitU[id number] YXAEFWHRXZ6611-08-38W54:29:161.2.840.568567.1.72 .3.15|1.2.840.025956.1.13.104.2.7.2.727879_21095 58815 Lucila Gage [facility] 2024-02-03 19:23:02 6487-09-63T17:23:02Formatting of this no te might be different from the original.Pt told registration that they were leaving didn't want to wait. 70216-7Dpkhfuasv department HmgrUQ0612-19-89M24:24:42Emerrivend[facility] department NoteTXT1.2.840.058742.1.13.104.2.7.2.309769|2108 082254WYJazcucknk for patient puew40984-0QwxaHJTIISPWGREJpmptnhts C-CDA narrative [id number] Johnson RN[id number] ZUAODHVZFS8653-97-63E98:24:421.2.840.314443.1.72 .3.15|1.2.840.695923.1.13.104.2.7.2.727879_21083 30688 Yoselin Johnson RN [facility] 2024-02-03 18:47:37 0552-00-54A72:47:37Formatting of this no te might be different from the original.Patient states: "I had surgery yesterday for dialysis catheter placement. Today I noticed it leaking with blood and fluid." 58562-0Vabbswaqd department Triage inonXK0115-00-97G95:51:48Emergency department Triage noteTXT1.2.840.402681.1.13.104.2.7.2.287850|2108 473549CBQpbbvqqdb for patient vsws44729-8Fieacimta department NoteLNNARRATIVEFormatted C-CDA narrative [id number] C Heredia RNUT[address] [id number] GSOMLVLEME5940-02-81Q24:51:481.2.840.009799.1.72 .3.15|1.2.840.252806.1.13.104.2.7.2.727879_21083 03278 Val Malcolm RN [facility] 2024-02-02 16:15:00 6322-10-77V18:15:00Formatting of this no te is different from the original.Images from the original note were not included.Venipuncture collection performed by clean technique on the left anticubitus. Total of 1 attempts were made. Slight pressure and a bandage/dressing were applied to the site(s). The patient experienced no complications. The following specimens were processed according to instructions and sent to [facility] laboratories per lab order on 02/02/2024:LT BLUESST 1REDLAV 1PPTDK GREEN (LiHep)DK GREEN (SodH)GRAYDK BLUE (K2)DK BLUE (S)ACDBlood CultureNIPT/NTD 95897-7Efvvt MlhgFW8695-77-24S48:25:13Nurse NoteTXT1.2.840.037946.1.13.104.2.7.2.141850|2107 022224DDQomcewgse for patient supp86317-3Yegys NoteLNNARRATIVEFormatted C-CDA narrative text[address] StreetWfljSolilrefjMseeplxjcHRHU9628357489YGISWSYKHLSE NBFYLHKEMO0279-95-30U01:25:131.2.840.456233.1.72 .3.15|1.2.840.831194.1.13.104.2.7.2.727879_21078 39599 [facility] 2024-02-01 09:44:30 6492-96-48K76:44:30Formatting of this no te might be different from the original.Spoke with spouse, aware procedure is scheduled for 02/02/24 and that day surgery would be calling today and to be sure to answer. Spouse verbalized understanding. 80380-1Egziadhxm encounter VzewUP9245-72-12A80:45:11Telephone encounter NoteTXT1.2.840.982114.1.13.104.2.7.2.779395|2106 722179GEOljrngsuz for patient gozj64553-3MrotJONAFXJLHMVAoodrargj C-CDA narrative bksi402947442Jlnapq A Hall RN[address] YjlvLiwypettjYfxvxscpkJIVX3485864164XUQGFNJRXYGA OPTEAJZEBX3018-71-55W57:45:111.2.840.169969.1.72 .3.15|1.2.840.444208.1.13.104.2.7.2.727879_21065 69108 Deborah Kaplan RN [facility] 2024-02-01 08:58:18 5631-47-82V92:58:18Formatting of this no te might be different from the original.Images from the original note were not included.Your procedure is at [facility] on 02/02/24. The address is [address] [place] [address], [id number]. [facility] nursing staff will call you the workday before your procedure to let you know what time to arrive.On the day of your procedure, please go inside that door and check in at the desk.Please note: You may not travel home alone and that includes in a taxi or by bus. We must speak to your Responsible Adult (who will be picking you up) the morning of your procedure, before the start of your procedure. This person must be an adult over the age of 18 years of age.Do not eat any solid food after midnight the night before surgery. You may have sips of clear liquids such as water, gatorade, and sprite up until two hours before your scheduled procedure.You may take your medications with a sip of water as directed by physician.Anticoagulants will be per physician guidance. Medication Note(s)/Instructions:Instructed to hold lisinopril-HCTZ today and tomorrow morning and not to take bumetanide in the morning.Pending screening, we may test for COVID. If a patient tests positive, their cases are cancelled and/or rescheduled. COVID SCREENING NOTE: Denies COVID symptoms, no testing required.Additional requests, questions, concerns: Complained of itching, no rash. Requested MD be notified. CB number provided.Patient verbalized understanding of pre-op instructions and voiced no further questions at this time. 58593-3Suagm HuxzSR3586-61-54Q92:13:42Nurse NoteTXT1.2.840.345056.1.13.104.2.7.2.886219|2106 075164KYTtbswhoay for patient qnin94994-3Funxu NoteLNNARRATIVEFormatted C-CDA narrative text97 [address] StreetMalxW[id number] ZJLZJDIWUR1344-51-95I16:13:421.2.840.801179.1.72 .3.15|1.2.840.518489.1.13.104.2.7.2.727879_21064 49043 [facility] 2024-02-01 08:54:03 0941-41-77K60:54:03Formatting of this no te might be different from the original.I believe the patient has been rescheduled for 02/02/2024, however if he does not respond for preoperative instructions his case will be cancelled again. 35265-7Rdvcgfxbp encounter AehvBY1769-76-64V57:55:07Telephone encounter NoteTXT1.2.840.400998.1.13.104.2.7.2.024259|2106 536385ZKZuvkbrabf for patient ehfo48660-3QpuaOXWKRTYPEIKJhnqpiqls C-CDA narrative textUT24 Martinez StreetTXTX7755577555USUSGALVESTO RLZNYXDMMK0596-94-81J77:55:071.2.840.483412.1.72 .3.15|1.2.840.031101.1.13.104.2.7.2.727879_21064 59634 [facility] 2024-02-01 08:15:00 8680-68-37R45:15:00Formatting of this no te might be different from the original.The patient was called for his Pre-op screening call and he said something about he had a rash that went from his stomach to his legs and arm pits. He also says his can no longer see it but it still itches. He would like a call from Dr. Moscoso nurse to decide to continue tomorrow or have his doctor check him out and reschedule. Message sent to Jael Moscoso's nurse. 11398-5Wglco AtlkZG1300-99-86T35:52:38Nurse NoteTXT1.2.840.213687.1.13.104.2.7.2.656890|2106 237295YTEuxxsgykm for patient qjhh97542-1Yautb NoteLNNARRATIVEFormatted C-CDA narrative [id number] LUO[address] [id number] FRPMREQPAK3943-06-77T64:52:381.2.840.638640.1.72 .3.15|1.2.840.304590.1.13.104.2.7.2.727879_21064 02849 Telma Olvera RN [facility] 2024-01-31 15:20:52 6087-45-66O84:20:52Formatting of this no te might be different from the original.Patient and spouse present in clinic today very upset stating that he was not contacted regarding cancellation of surgery. Patient made aware that several attempts to contact him at every number listed in the chart made by me and RN Yany Miller on 01/29/24, patient was texted and called. Patient upset stating he knew what day he needed to be there for his surgery and that he didn't know he needed to have his phone on the day before arrival time. Girlfriend present, Betsy Yates, states she was present at patient's presurgical education and states to patient that he was told that he would get a call the day before his surgery with arrival time. Patient continues to be upset stating when he called to ask about it on 01/30/24 the "3 ladies I talked to said there was no notes that anyone had tried to call him on 01/29/24 regarding his surgery." This RN reviewed presurgical education and re-educated patient on the importance of answering his phone the day before surgery to get his arrival time. Informed patient this RN would see when patient can get rescheduled but as another clinic is running at this time this RN would have to contact him later. Confirmed contact numbers with patient and added girlfriend on as additional contact information.Reviewed notes, saw MD Moscoso requested patient to be added on 02/02/24. Checked with surgical scheduling who were able to add case on to 02/02/24. Attempted to contact patient at 2 phone numbers and girlfriend's number, no answer. LVM requesting patient call office. 91265-4Mjpanqhto encounter YlgxVF5889-73-22O75:42:36Telephone encounter NoteTXT1.2.840.541751.1.13.104.2.7.2.034784|2105 839087WCPpuyzfcnc for patient eesx66806-7HsxoPFYRWHSVTTXUqtmtbxuh C-CDA narrative hxtm226230794Kbbsmpa J Joseph RNUT24 [address] [id number] KTZRXYHACC8538-16-66K36:42:361.2.840.295620.1.72 .3.15|1.2.840.914512.1.13.104.2.7.2.727879_21059 52936 Jael Angel Joseph RN [facility] 2024-01-30 11:54:01 9375-26-90K18:54:01Formatting of this no te might be different from the original.Could we see if we can get the patient back on the schedule for this Monday please? 77163-7Czbnstxww encounter XfxoIK5261-12-46A55:54:41Telephone encounter NoteTXT1.2.840.680083.1.13.104.2.7.2.042693|2104 983892NBRzltzhgyx for patient yjpa22898-0LippPZKSSPMPKMDSimfmjzjw C-CDA narrative text[address] StreetTXTX7755577555USUSGALVESTO NHRFDACCCR3829-36-24M73:54:411.2.840.046426.1.72 .3.15|1.2.840.949877.1.13.104.2.7.2.727879_21045 12160 [facility] 2024-01-30 09:25:25 9417-85-99O70:25:25Formatting of this no te might be different from the original.Called patient back to discuss rationale for cancellation. No answer, left VM message explaining that we were unable to reach him to do mandatory pre-op screening call despite >10 messages and two texts. Also unable to reach patient to notify him of cancellation yesterday. Encouraged patient to call me back if he needed more information or had any questions. Number provided. 86170-8Ejoxgzipq encounter HmqdVO0996-68-87C76:29:17Telephone encounter NoteTXT1.2.840.697075.1.13.104.2.7.2.908428|2103 835253ZOThjkmzbii for patient pmot22696-4DxfbQPDISXYTDNFVcxrzrqir C-CDA narrative qkgc715561848Ykcir L Land RN[address] [id number] ZIMHMFQAZQ0216-30-46G71:29:171.2.840.472069.1.72 .3.15|1.2.840.176201.1.13.104.2.7.2.727879_21043 88313 Yany Miller RN [facility] 2024-01-30 08:08:38 7203-29-93C04:08:38Formatting of this no te might be different from the original.Jeevan Kennyashley Llanos is a 53 year old malePatient is calling back upset requesting to speak with staff to discuss cancellation of surgery. Please contact at earliest convenience 95209-3Gojumeuvz encounter RravOV6702-29-29N69:11:17Telephone encounter NoteTXT1.2.840.922270.1.13.104.2.7.2.761145|2103171888DPRmctocngt for patient fkpk55918-0KeoyNWLLUGJPDOCMhzmcwkqq C-CDA narrative tegv06926444TzrdValery Mcmahon[address] [id number] QCMXUKQYTN3081-77-66R46:11:171.2.840.409896.1.72 .3.15|1.2.840.116723.1.13.104.2.7.2.727879_21042 46827 Valery Mcmahon [facility] 2024-01-30 07:59:06 2115-69-62V10:59:06Formatting of this no te might be different from the original.Jeevan Ordaz Jr. is a 53 year old malePt is extremely upset that his surgery was cancelled and no one called him to cancel. Pt would like to know what he is supposed [place] [address]-9Akhpdrmts encounter LqmxWW9214-25-33H31:01:39Telephone encounter NoteTXT1.2.840.256134.1.13.104.2.7.2.005913|2103 143942UVCpfczvjvf for patient slmj48130-5VvjbKZSJBQKSYHUIzvdopjyv C-CDA narrative hueq332668608Qjkfpv M Cook[address] DucdC[id number] RTRLZLEHPH6934-16-36W69:01:391.2.840.761496.1.72 .3.15|1.2.840.119348.1.13.104.2.7.2.727879_21041 49593 Rosita Manuel [facility] 2024-01-29 12:26:42 9345-66-73Y87:26:42Formatting of this no te might be different from the original.Attempted to call X 10, text message X 2, to speak with patient to complete pre-op screening call. All available numbers attempted. Sent cancellation. 10035-2Hgpfdgjso encounter KhxyPS6087-08-19D09:29:13Telephone encounter NoteTXT1.2.840.505659.1.13.104.2.7.2.605862|2103 708711YCEmpvfxryz for patient kxxl73553-2AhqyKQTFJPVETWQWahsfkcux C-CDA narrative zzet938995566Ffvhv L Land RN87 [address] [id number] DTTXCOUXDL8017-00-42Y87:29:131.2.840.209975.1.72 .3.15|1.2.840.171117.1.13.104.2.7.2.727879_21034 25496 Yany Miller JOAN [facility] 2024-01-29 11:55:44 2995-56-00N33:55:44Formatting of this no te might be different from the original.Attempted to call every number listed for this patient, including emergency contacts. Patient not answering, messages left that if he does not call today before noon that surgery will be canceled. Also texted patient and child's listed number and informed them that way as well. 39056-1Ivpeicnzd encounter DuceRN2939-73-01F03:00:59Telephone encounter NoteTXT1.2.840.134799.1.13.104.2.7.2.678914|2103 296503JSDgdwbqbmf for patient sphx64294-2VweoEDYLRWAOFUDDdxmetxoh C-CDA narrative [id number] LUO[id number] SZWYWUHXTG8140-21-84A96:00:591.2.840.357502.1.72 .3.15|1.2.840.396251.1.13.104.2.7.2.727879_21034 20796 Jael Ruiz RN [facility] 2024-01-22 13:00:00 0991-69-78V38:00:00Addended by: WILDA GONZALEZ LVN on: 01/22/2024 03:06 PMModules accepted: Orders 08520-0Qzmoqeow HbnvehztHI2206-95-83O02:06:34Addendum DocumentTXT1.2.840.783079.1.13.104.2.7.2.474270| 7549084545DHPtjeifxdv for patient znnn36678-9ZzsnALWJOUASKWXDtqtensin C-CDA narrative ZikBit87 [address] StreetTXTX7755577555USUSGALVESTO TTFDJNMGQQ4953-55-26D13:06:341.2.840.375887.1.72 .3.15|1.2.840.162328.1.13.104.2.7.2.727879_20979 08304 [facility] 2023-12-28 13:01:50 9106-73-98L58:01:50Formatting of this no te might be different from the original.Reason for Referral/Presenting Complaint:Preoperative cardiovascular examination (prior to AV fistula surgery).Preoperative cardiovascular faxed to Dr. Crawford.[facility] PIIcFax number: [phone] Team:[address] [place], [place] [address]Tel: Jcq: [phone] signed by Sloane Easley MA at 12/28/2023 1:13 PM QWF71218-9Hytavjara encounter ZmsgVU6239-84-54G06:13:03Telephone encounter NoteTXT1.2.840.524504.1.13.104.2.7.2.893509|2077 364968RBTdyofowin for patient wheg45893-1YlypLUDFMXDZMLGNqdhvduwn C-CDA narrative ZikBit87 [address] [id number] RLRUYDURGJ0106-31-11M20:13:031.2.840.073007.1.72 .3.15|1.2.840.091567.1.13.104.2.7.2.727879_79 [facility] 2023-10-12 15:00:11 4436-49-87A19:00:11Formatting of this no te might be different from the original.Jeevan Ordaz Jr is a 53 year old male is calling to discuss assistance with payments. Please call him at [phone] signed by Kristyn Ospina at 10/12/2023 3:04 PM BGW30892-9Cqvwmlgcc encounter OsdzND7275-57-37O79:04:07Telephone encounter NoteTXT1.2.840.550647.1.13.104.2.7.2.258425|2013 005600COKgyzhfzsu for patient absb20005-4ZlxdGHSXOPWFRMNJjwaunjpv C-CDA narrative sova595357928Yiewk J Boudreau[address] ZbykPusmivkszLkgtkckalOJKV9176362858TFCPPZQCJYXL QCEIKGCZXA6604-72-00E18:04:071.2.840.156655.1.72 .3.15|1.2.840.950343.1.13.104.2.7.2.727879_ 65850 Krsityn Loreau [facility] 2023-10-10 15:44:47 7613-89-18B70:44:47Formatting of this no te might be different from the original.Called Mr. Ordaz, LVTrista we are no in network with his insurance. Self pay dinh is 136.50. 05468-5Mgcmcnzxj encounter ReyjGO6649-89-49U68:45:58Telephone encounter NoteTXT1.2.840.500629.1.13.104.2.7.2.059215|2010 479925JITyusnwijk for patient qvye91720-8AodrIXQNWOXWNBYUvtslchey C-CDA narrative hiza434014326Xzxofjy [id number] JDAZMUJVOZ5665-90-67A57:45:581.2.840.064490.1.72 .3.15|1.2.840.400718.1.13.104.2.7.2.727879_ [facility] 2023-09-15 22:36:58 8216-26-58R00:36:58Formatting of this no te might be different from the original.Patient leaving AMA/without final disposition,Patients A&OX4, discussed risks of leaving against medical advice/final dispositon, Dr. Thrasher aware and notified of patient's decision.Patient encouraged to seek medical attention for any new/prolonged/worsening of symptoms and stressed importance of follow up with a medical provider as soon as possible. AMA form explained, patient verbalized understanding and signature obtainedIV d'cd, dressing to site.Patient leaving ambulatory with steady gait, appears in no distress 51223-3Ijcwznvje department XerdKP3205-94-61C54:38:13Emergency department NoteTXT1.2.840.323535.1.13.104.2.7.2.923367|1992 027073BYPeoeaffdd for patient fcvb24114-3OqhjNILNSPAHGTEBuboipojq C-CDA narrative axyp613673252Iqowtd J Hoot [id number] BNMOZJMBXG4898-06-19N30:38:131.2.840.665534.1.72 .3.15|1.2.840.433632.1.13.104.2.7.2.727879_ 22429 Nesha Huber RN [facility] 2023-09-15 22:35:35 0210-26-56Y87:35:35Formatting of this no te might be different from the original.Patient requested to speak to Singer SORIA.Patient changed his mind and does not want to be admitted to hospital at this time.Risks explained to patient and patient was able to verbalize risks and reports understanding.AMA form signed. IV line removed.Patient in stable condition when leaving the ER. Ambulatory with steady gait. [address] NtbmEM4844-10-03S72:36:38[facility]ew[facility] NoteTXT1.2.840.342508.1.13.104.2.7.2.696532|1992 581194VEWmpgztsoo for patient odfs05704-8PrxjRBIPDRELETORtzipskvd C-CDA narrative hhqq140830873Haqalfbb Oxford RN[address] StreetJgexPvmenqqibMiurxxiarQMPX4497603164CEIBPELKMAQR CGTSAYUJFL9685-90-45O67:36:381.2.840.743512.1.72 .3.15|1.2.840.339141.1.13.104.2.7.2.727879_19921 07598 Ashley Champion RN [facility] 2023-09-15 22:09:53 8705-89-61G51:09:53Formatting of this no te might be different from the original.Nurse ReportReport given to JOAN Sawyer over the phone, no questions received. Chief complaint, assessment findings and medications were discussed. Plan of care discussed with patient, patient aware of plan.Patient in stable condition at time report was given,no distress. 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 [place] [address]-0Kcayxsslq department GqwfKP1014-97-49R84:10:33Emewh[facility] NoteTXT1.2.840.954331.1.13.104.2.7.2.709752|1992 770528KWMjwcddzne for patient lqlr22983-1SiwdTECZNRNFKFGDpwbnqgth C-CDA narrative text[address] StreetTXTX7755577555USCASSY PALAFOXHLRDBVWTOA7771-51-22Q25:10:331.2.840.399474.1.72 .3.15|1.2.840.548059.1.13.104.2.7.2.727879_ 24329 [facility] 2023-09-15 21:12:11 5055-49-31R58:12:11Formatting of this no te might be different from the original.Patient given a sandwich and juice - tolerating well. 01733-9Rzdbpccfc department HxhxWA6748-48-34P88:12:31Emergency department NoteTXT1.2.840.427226.1.13.104.2.7.2.062940|1992 114116SCQmcjsrrik for patient bhae62046-6TcllZHFPYBUGPGEIauvmybdt C-CDA narrative [address]TXTX7755577555USCASSY PALAFOXMYSYXSIAON5401-30-21C36:12:311.2.840.374867.1.72 .3.15|1.2.840.665940.1.13.104.2.7.2.727879_ 60020 [facility] 2023-09-15 18:58:01 7335-79-33N72:58:01Formatting of this no te is different from the original.Patient's name and verified with patient.Chief ComplaintPatient presents [...] aware [place] [address]-8Wtxfpucte department WppzRG2847-06-10X03:59:43Emergen department NoteTXT1.2.840.077020.1.13.104.2.7.2.682139|1992 751471VSVrfjivlrf for patient klgk98332-7BbcaSBGJOXKXEAWNckbwurrf C-CDA narrative textUT[address] WozjCpyuxayfgJwjyodunbFDSB6597216111ZSBFSJDPDYZX WLBXSLXJCA6707-54-80D49:59:431.2.840.330221.1.72 .3.15|1.2.840.788396.1.13.104.2.7.2.727879_19931 09531 [facility] 2023-09-15 18:20:12 5298-34-37N68:20:12Formatting of this no te might be different from the original.Patient states: "I was at [facility] 3 days ago and they diagnosed me [...] prescriptions. 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 07371-1Ywdzkntxv department Triage vrpxSC8581-45-60U68:25:32[facility]il[facility] department Triage noteTXT1.2.840.632304.1.13.104.2.7.2.888448|1992 815857JDZmsjdifks for patient crcw17549-9Yczexvzcq department NoteLNNARRATIVEFormatted C-CDA narrative text[address] WcqyUottvnijvVmwaiycmkDYIB7956724882APKZXTFHXXYV PDNKJNTDZJ6428-99-97U03:25:321.2.840.282978.1.72 .3.15|1.2.840.183546.1.13.104.2.7.2.727879_19931 17220 [facility] 2023-09-15 18:00:00 3829-85-83W75:00:00Formatting of this no te is different from the original.[facility] Emergency Department NotePatient Name: Jeevan Ordaz JrDate of : 1970 53 year old maleTreatment Room: MS2/YI7Exauark Record Number: [id number] Care Physician: Trung Bowling Escorted by: Self [9]Mode of Arrival: Personal means [1]EMS Treatment 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 Was seen and evaluated at and left AMA. Reportedly had dx of PNA and HTN. He is non hypoxic. Presented tachycardic. Elevated BP.Past Medical History/Immunizations:Past Medical History:Diagnosis DateDepressionDiabetes mellitusDiabetic retinopathyED (erectile dysfunction)HyperlipidemiaHypertensionLegally blindTetanus received in last 5 years: NoChildhood immunizations: Be-iq-nxbbAvxifvixi:No Known AllergiesPast Social History:Tobacco UseFormer; 1 pack/day [...] LARYNGOSCOPY N/A 01/08/2018Surgeon: Petey Looney MD; [facility] SURGERYINCISION AND DRAINAGE OF ABSCESS Left 01/10/2018Surgeon: Nitish Bajwa MD; [facility]Review of SystemsConstitutional: Positive for fatigue. [...] normal.Radiology:XR CHEST 1 VWFinal ResultORDERING PHYSICIAN: GRADY MARTINLINICAL HISTORY:shortness of breathTECHNIQUE:AP chest radiograph.COMPARISON:None.FINDINGS:No focal pulmonary [...] 0.04 0.01 - 0.09 10*3/uLCOMP. METABOLIC PANEL (43212) - AbnormalNA 138 135 - 145 mmol/LK [...] U/LAST(SGOT) 20 13 - 40 U/LeGFR 8.5 mL/min/1.42q5P-ICEOZCYZ PRO-BNP - AbnormalNT-proBNP 8,290 (*) <=125 pg/mLURINALYSIS [...] Negative NegativeCOVID-19 (ID NOW RAPID TESTING) - QbylocVRUE-UsY-4 Rapid ID NOW Not Detected Not DetectedLACTIC ACID WHOLE BLOOD - NormalLACTIC ACID 1.40 0.50 - 2.20 mmol/LEKG:If EKG completed, see Procedure Note.Orders and Treatments:Orders Placed This EncounterProceduresXR CHEST 1 VWCbc with DiffComp. Metabolic Panel (19289)N-Terminal Pro-BnpTroponin IUrinalysisRAPID INFLUENZA A/BCOVID-19 (ID NOW TESTING)Lactic Acid Whole BloodLactic Acid Whole BloodPOCT GLUCOSE (AUTOMATED)Lab Only COVID InterpretationOrders Placed This EncounterMedicationshydralAZINE (APRESOLINE) injection 10 mgFirst Provider Eval:ED EventsNoneED COURSEED Course as of 09/15/232236Fri Sep 15 CREATININE(!): 7.17 [PS]2004 BUN(!): 59 [PS]2004 NT-proBNP(!): 8,290 [PS]ED Course User Index[PS] Grady Thrasher, DODiagnosis/Impression as of 09/15/237Secondary hypertensionAcute renal failure, unspecified acute renal failure typeCongestive heart failure, unspecified HF chronicity, unspecified heart failure typeProcedures:ProceduresMDM:Medical Decision MakingJeevan Ordaz Jr is a 53 year old male with new onset renal failure. 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 BNP elevated 8300. Tachycardic. No hypoxia. Accelerated hypertension. Coordinated admission at [facility]. Prior to ambulance arriving patient [...] decline admission. Unfortunately he decided to leave AMA.The patient is clinically not intoxicated, free from [...] (two) times daily.LANCETS (FREESTYLE LANCETS) 28 GAUGE [facility] USE ONE LANCET TO CHECK BLOOD GLUCOSE [...] for follow-Trung Brown, DOSpecialty: IM-NEPHROLOGYRelationship: PCP - Johanny SUE [facility] [id number]: [phone] signed by:Grady Thrasher DO09/15/238 [id number] Emergency department [id number]:38:05Physician Emergency department [id number]|1992 101773RXBsqexxkst for patient qmef89709-0Xvavkdggz department NoteLNNARRATIVEFormatted C-CDA narrative textUT[address] Ao[id number] VNMAKTLWDA6100-23-26O52:38:051.2.840.930638.1.72 .3.15|1.2.840.739474.1.13.104.2.7.2.727879_19931 [address] [facility]
--- NOTE | 2024-02-07 17:43 | ER ---
Nurse's Notes [facility] Name: Amor Ramírez Jr Age: 53 yrs Sex: Male : 1970 Arrival Date: 02/07/2024 Time: 17:10 Bed 6 Private MD: Diagnosis: Encounter for change or removal of surgical wound dressing Presentation: 02/06 17:28 Chief complaint: Patient states: PAIN AROUND PERMACATH SITE FOR DIALYSIS. STATES RECENT db PLACEMENT ON MONDAY MORNING. Coronavirus screen: Client denies travel out of the [place] in the last 14 days. At this time, the client does not indicate any symptoms associated with coronavirus-19. Ebola Screen: Patient negative for fever greater than or equal to 101.5 degrees Fahrenheit, and additional compatible Ebola Virus Disease symptoms Patient denies exposure to infectious person. Patient denies travel to an Ebola-affected area in the 21 days before illness onset. No symptoms or risks identified at this time. Initial Sepsis Screen: Does the patient meet any 2 criteria? No. Patient's initial sepsis screen is negative. Does the patient have a suspected source of infection? No. Patient's initial sepsis screen is negative. Risk Assessment: Do you want to hurt yourself or someone else? Patient reports no desire to harm self or others. Onset of symptoms was February 07, 2024. 17:28 Method Of Arrival: Ambulatory db 17:28 Acuity: YADIEL 3 db Triage Assessment: 17:28 General: Appears in no apparent distress. comfortable, Behavior is calm, cooperative. db Pain: Complains of pain in chest. Neuro: Level of Consciousness is awake, alert, obeys commands, Oriented to person, place, time, situation. Historical: - Allergies: 17:29 NKDA; mb9 - Home Meds: 17:29 Novolin N 100 unit/mL Sub-Q susp [Active]; mb9 - PMHx: 17:29 Diabetes - IDDM; Hypercholesterolemia; Hypertension; TIA; mb9 - Immunization history:: Adult Immunizations up to date. - Infectious Disease History:: Denies. - Social history:: Smoking status: Patient denies any tobacco usage or history of. Screenin:34 [facility] ED Fall Risk Assessment (Adult) History of falling in the last 3 months, mb9 including since admission No falls in past 3 months (0 pts) Confusion or Disorientation No (0 pts) Intoxicated or Sedated No (0 pts) Impaired Gait No (0 pts) Mobility Assist Device Used No (0 pt) Altered Elimination No (0 pt) Score/Fall Risk Level 0 - 2 = Low Risk Oriented to surroundings, Maintained a safe environment, Educated pt \\T\\ family on fall prevention, incl call for assistance when getting out of bed. Abuse screen: Denies threats or abuse. Nutritional screening: No deficits noted. Tuberculosis screening: No symptoms or risk factors identified. Assessment: 17:36 Reassessment:. General: Appears in no apparent distress. Behavior is calm, cooperative. mb9 Pain: Complains of pain in right anterior chest Pain does not radiate. Pain currently is 4 out of 10 on a pain scale. Quality of pain is described as "sore". Neuro: Condon Agitation-Sedation Scale (RASS): 0 - Alert and Calm Level of Consciousness is awake, alert, obeys commands, Oriented to person, place, time, situation, Appropriate for age. Cardiovascular: Patient's skin is warm and dry. Respiratory: Airway is patent Respiratory effort is even, unlabored, Respiratory pattern is regular, symmetrical. GI: No signs and/or symptoms were reported involving the gastrointestinal system. : No signs and/or symptoms were reported regarding the genitourinary system. EENT: No signs and/or symptoms were reported regarding the EENT system. Derm: Skin is pink, warm \\T\\ dry. Musculoskeletal: Range of motion: intact in all extremities. Vital Signs: 17:28 BP 132 / 81; Pulse 76; Resp 16; Temp 99; Pulse Ox 98% ; Weight 72.57 kg; Height 5 ft. 8 db in. ; 17:28 Body Mass Index 24.33 (72.57 kg, 172.72 cm) db ED Course: 17:16 Patient arrived in ED. mg5 17:20 Louise Hanna PA-C is PHCP. sb4 17:20 Kash Barrow MD is Attending Physician. sb4 17:29 Beverly Pompa RN is Primary Nurse. mb9 17:29 Arm band placed on. mb9 17:30 Triage completed. db 17:33 Placed in gown. Bed in low position. Call light in reach. Side rails up X 1. Provided mb9 Education on: press call light if needing anything. Client placed on continuous cardiac and pulse oximetry monitoring. NIBP monitoring applied. Door closed. Noise minimized. Warm blanket given. Pillow given. 17:52 No provider procedures requiring assistance completed. Patient did not have IV access mb9 during this emergency room visit. Administered Medications: No medications were administered Medication: 17:34 VIS not applicable for this client. mb9 Outcome: 17:43 Discharge ordered by . david 17:52 Discharged to home ambulatory, mb9 17:52 Condition: stable 17:52 Discharge instructions given to patient, Instructed on discharge instructions, follow up and referral plans. Demonstrated understanding of instructions, follow-up care, medications, Prescriptions given X 1, 17:52 Patient left the ED. mb9 Signatures: Blossom Manning, RN Louise Lopez PA-C PA-C sb4 Beverly Pompa RN RN mb9 Arelis Hudson mg5
--- NOTE | 2024-02-07 17:43 | EDPHYS ---
Physician Documentation [facility] Name: Amor Ramírez Jr Age: 53 yrs Sex: Male : 1970 Arrival Date: 02/07/2024 Time: 17:10 Bed 6 Private MD: ED Physician Kash Barrow HPI: 02/06 17:48 This 53 yrs old Male presents to ER via Ambulatory with complaints of Post sb4 Surgical Pain. 17:48 patient had right subclavian dialysis catheter placed on Monday. states they did not sb4 give him any extra supplies to change the dressing. he is complaining of pain around the site. is also requesting short term prescription for tylenol #3 for the pain, has appt with his PCP tomorrow. Historical: - Allergies: 17:29 NKDA; mb9 - Home Meds: 17:29 Novolin N 100 unit/mL Sub-Q susp [Active]; mb9 - PMHx: 17:29 Diabetes - IDDM; Hypercholesterolemia; Hypertension; TIA; mb9 - Immunization history:: Adult Immunizations up to date. - Infectious Disease History:: Denies. - Social history:: Smoking status: Patient denies any tobacco usage or history of. ROS: 17:48 Constitutional: Negative for fever, chills, and weight loss, sb4 17:48 Skin: Positive for per HPI, Exam: 17:48 Constitutional: This is a well developed, well nourished patient who is awake, alert, sb4 and in no acute distress. Head/Face: Normocephalic, atraumatic. Eyes: Extra-ocular motions intact. Periorbital areas with no swelling, redness, or edema. ENT: Mucous membranes moist. 17:48 Skin: right subclavian dialysis catheter, no purulence or surrounding cellulitis. Vital Signs: 17:28 BP 132 / 81; Pulse 76; Resp 16; Temp 99; Pulse Ox 98% ; Weight 72.57 kg; Height 5 ft. 8 db in. ; 17:28 Body Mass Index 24.33 (72.57 kg, 172.72 cm) db MDM: 17:23 Patient medically screened. sb4 17:48 Data reviewed: vital signs, nurses notes, and as a result, I will discharge patient. sb4 Counseling: I had a detailed discussion with the patient and/or guardian regarding the historical points, exam findings, and any diagnostic results supporting the discharge/admit diagnosis, to return to the emergency department if symptoms worsen or persist or if there are any questions or concerns that arise at home. 02/06 17:42 Order name: Wound dressing sb4 Administered Medications: No medications were administered Disposition Summary: 02/07/24 17:43 Discharge Ordered Notes: Location: Home sb4 Problem: new sb4 Symptoms: have improved sb4 Condition: Stable sb4 Diagnosis - Encounter for change or removal of surgical wound dressing sb4 Followup: sb4 - With: Private Physician - When: As needed - Reason: Recheck today's complaints, Re-evaluation by your physician Discharge Instructions: - Discharge Summary Sheet sb4 - How to Change Your Wound Dressing sb4 Forms: - Prescription Opioid Use sb4 - Patient Portal Instructions sb4 - Leadership Thank You Letter sb4 Prescriptions: - acetaminophen-codeine 300-30 mg Oral tablet - take 1 tablet ORAL route every 6 hours as needed for pain; 3 tablet; Refills: sb4 0, Product Selection Permitted Signatures: Louise Hanna PA-C PA-C sb4 Beverly Pompa RN RN mb9
[2024-02-07 18:23] VITALS: BP 132/81; TEMP 99; O2SAT 98
== END 2024-02-07 17:52 | disposition home or self-care (01) ==
LOC: ER 17:10
DX: T82.848A Pain due to vascular prosthetic devices, implants and grafts, initial encounter (principal)
CPT/HCPCS: 99283

== ENCOUNTER 2024-07-15 18:55 | Inpatient (IN) | payer OTHER ==
--- OUTSIDE RECORDS SUMMARY | 2024-07-15 19:00 | XMS REPORT | Continuity of Care Document ---
Author Name Unknown Address [address] [facility] [address] [place] [address] [facility] thconnect Address [address] [place] [address] Care Team Providers Care Press Feeder Name Role Phone TRUNG CRAWFORD Primary Care Physician UnavailMICHELLE Ponce Attending Clinician Unavailable Yunier Barrow Attending Clinician Unavailable Rahul Jasmine Attending Clinician Unavailable Pob, [facility] Attending Clinician UnavailTrung Gallagher DO Attending Clinician [phone] TRUNG CRAWFORD Attending Clinician Unavailable STEVE GUERIN Attending Clinician Unavailable STEVE GUERIN Attending Clinician Unavailable Steve Guerin MD Attending Clinician [phone] Andrei Yanes MD Attending Clinician [phone] ANDREI YANES Attending Clinician Unavailable BERENICE ASHER Attending Clinician Unavailab BERENICE Saldaña Attending Clinician Unavailab Jessica Barbosa CRNA Attending Clinician [phone] Patrick Whyte MD Attending Clinicia n Elias SWEET, Geovanna Campos Attending Clinician [phone] Waldo SWEET, Estiven Guadarrama Attending Clinician [phone] LIANA SMITH Attending Clinician Unavailable Liana Smith MD Attending Clinician [phone] Michelle Moscoso MD Attending Clinician [phone] DARRION WILKES Attending Clinician Unavailable DARRION WILKES Attending Clinician Unavailable 2, [facility] Attending Clinician Unavailable Trung Crawford DO Attending Clinician [phone] Doctor Unassigned, [place] Attending Clinician U alfonsoailable LOREN YUAN Attending Clinician Unavailable LOREN YUAN Attending Clinician Unavailable Deanne Gibbons Attending Clinician [phone] GRADY THRASHER Attending Clinician Unavailable Grady Thrasher DO Attending Clinician [phone] Chip Mcbride DO Attending Clinician [phone] GAYLORD_S Attending Clinician Unavailable Treasure Hernandez Attending Clinician [phone] Deshazo_T Attending Clinician Unavailable Carmen Akhtar MD Attending Clinician [phone] Melony Corado Attending Clinician DAVIDSON TORRES Attending Clinician Unavailable Davidson Torres MD Attending Clinician [phone] CARMEN AKHTAR Attending Clinician Unava ilable REENA ASTORGA Attending Clinician Unavailable Enoc Vega Attending Clinician [phone] Fortunato Luna Attending Clinician [phone] FORTUNATO HEDRICK Attending Clinician Unavailable RUSLAN POSADAS Attending Clinician Unav ailable WILLIAM HERMAN Attending Clinician Unavaila WILLIAM Reyes Attending Clinician Unavaila BENNETT Gonzalez Attending Clinician Unavailable TON ARAGON Attending Clinician UnavailSHELBY Currie Attending Clinician Unavailable MICHELLE MOSCOSO Admitting Clinician Unavailable BERENICE ASHER Admitting Clinician Unavailab ANDREI Boone Admitting Clinician Unavailable LIANA SMITH Admitting Clinician Unavailable Michelle Moscoso MD Admitting Clinician CHIP MCBRIDE Admitting Clinician Unavailable Chip Mcbride DO Admitting Clinician GAYLORD_S Admitting Clinician Unavailable Deshazo_T Admitting Clinician Unavailable Payers Payer Name Policy Type Policy Number Effective Date Expirati on Date Source [facility] [id number] 00:00:00 [facility] [id number] 2019 00:00:00 [employer] ADV[employer]AGE PLAN [id number] 2021 00:00:00 [employer] [facility] (MEDICARE REPLACEMENT HMO) [id number] 2020 00:00:00 COMMERCIAL NON-CONTRACT GENERIC [id number] 2020 00:00:00 MEDICARE PART A \\T\\ B [id number] 2021 00:00:00 Problems Condition Name Condition Details Condition Category Status Onset Date Resolution Date Last Treatment Date Treating Clinician Comments Source ESRD (end stage renal disease) ESRD (end stage renal disease) Disease Active 02-14 00:00: 00 [facility] CKD (chronic kidney disease) stage 5, GFR less than 15 ml/min CKD (chronic kidney disease) stage 5, GFR less than 15 ml/min Disease Active - 00:00: 00 [facility] Encounter for fitting and adjustment of dialysis catheter Encounter for fitting and adjustment of dialysis catheter Disease Active 01-21 00:00: 00 [facility] Localized edema due to fluid overload Localized edema due to fluid overload Disease Active 5-09 00:00: 00 [facility] Insomnia due to medical condition Insomnia due to medical condition Disease Active 5-05 00:00: 00 [facility] Shortness of breath Shortness of breath Disease Active 18 00:00: 00 [facility] Preoperati ve cardiovasc ular examinatio n Preoperati ve cardiovasc ular examinatio n Disease Active 2024-0 4-18 00:00: 00 [facility] End stage renal disease End stage renal disease Disease Active 4-18 00:00: 00 [facility] Coronary atheroscle rosis of [place] coronary artery Coronary atheroscle rosis of [place] coronary artery Disease Active 2-01 00:00: 00 [facility] Anemia of chronic disease Anemia of chronic disease Disease Active 118 00:00: 00 [facility] Stage 5 chronic kidney disease Stage 5 chronic kidney disease Disease Recurre nce 1-18 00:00: 00 [facility] Chronic metabolic acidosis Chronic metabolic acidosis Disease Active 18 00:00: 00 [facility] Nephrogeno us proteinuri a Nephrogeno us proteinuri a Disease Active 118 00:00: 00 [facility] Allergic rhinitis due to pollen Allergic rhinitis due to pollen Disease Active 2022-09 00:00: 00 [facility] Erectile dysfunctio n due to diabetes mellitus Erectile dysfunctio n due to diabetes mellitus Disease Active 03-20 00:00: 00 [facility] Ex-cigaret te smoker Ex-cigaret te smoker Disease Active 03-20 00:00: 00 [facility] Excessive daytime sleepiness Excessive daytime sleepiness Disease Active 04-09 00:00: 00 [facility] Chronic arterial ischemic stroke Chronic arterial ischemic stroke Disease Active 24 00:00: 00 [facility] Essential hypertensi on Essential hypertensi on Disease Active 24 00:00: 00 [facility] Neuropathy of both feet Neuropathy of both feet Disease Active 24 00:00: 00 [facility] Neuropathy of both feet Neuropathy of both feet Disease Active 24 00:00: 00 [facility] Legal blindness Legal blindness Disease Active 5-14 00:00: 00 [facility] 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, unspecifie d eye 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, unspecifie d eye Disease Active 01-22 00:00: 00 [facility] Hypertensi on Hypertensi on Disease Active 01-22 00:00: 00 [facility] Erectile dysfunctio n Erectile dysfunctio n Disease Active 01-22 00:00: 00 [facility] Constipati on Constipati on Disease Active 01-22 00:00: 00 [facility] Mixed anxiety and depressive disorder Mixed anxiety and depressive disorder Disease Active 01-22 00:00: 00 [facility] Night sweats Night sweats Disease Active 01-22 00:00: 00 [facility] 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, unspecifie d eye 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, unspecifie d eye Disease Active 01-22 00:00: 00 [facility] Abnormal finding on CT scan Abnormal finding on CT scan Disease Active 2019-09 012 00:00: 00 [facility] Stroke Stroke Disease Active 2019-09 010 00:00: 00 [facility] Uncontroll ed type 2 diabetes mellitus with hyperglyce thalia Uncontroll ed type 2 diabetes mellitus with hyperglyce thalia Disease Active 01-13 00:00: 00 [facility] [id number] Moderate major depression , single episode Problem [facility] [id number] Type 2 diabetes mellitus with other diabetic kidney complicati on Problem [facility] [id number] Type 2 diabetes mellitus with diabetic chronic kidney disease Problem [facility] [id number] Chronic kidney disease, stage 3 unspecifie d Problem [facility] Depression Depression Problem Co mmon [facility] [id number] Current use of insulin Problem [facility] Vitamin D deficiency Vitamin D deficiency Problem [facility] Mixed hyperlipid emia Mixed hyperlipid emia Problem [facility] Anxiety Anxiety Problem [facility] Hyperglyce thalia due to type 2 diabetes mellitus Uncontroll ed type 2 diabetes mellitus with hyperglyce thalia Problem [facility] Hypertensi ve urgency Hypertensi ve urgency Disease Resolve d 12-15 00:00: 00 2021-04-09 00:00:00 2021-04-09 18:42:41 [facility] Supraglott ic abscess Supraglott ic abscess Disease Resolve d 01-08 00:00: 00 2021-04-09 00:00:00 2021-04-09 18:42:48 [facility] Allergies, Adverse Reactions, Alerts Allergy Name Allergy Type Status Severity Reaction(s) Onset Date Inactive Date Treating Clinician Comments Source Amlodipi ne Propensi ty to adverse reaction s Active Diarrhea 2020-09 00:00: 00 severe [facility] AMLODIPI NE DRUG INGREDI Active Diarrhea 2020-09 00:00: 00 [facility] NO KNOWN ALLERGIE S Drug Class Active [facility] Social History Social Habit Start Date Stop Date Quantity Comments Source Sex Assigned At [facility] History of tobacco use Cigarette Smoker [facility] History SDOH Alcohol Frequency [facility] History SDOH Alcohol Std Drinks [facility] History SDOH Alcohol Binge [facility] Alcoholic beverage intake 2024-04-03 00:00:00 2024-04-03 00:00:00 1.71 /d [facility] Tobacco use and exposure 2024-02-01 00:00:00 2024-02-01 00:00:00 Smokeless tobacco non-user [facility] Cigarettes smoked current (pack per day) - Reported 2024-02-01 00:00:00 2024-02-01 00:00:00 [facility] Cigarette pack-years 2024-02-01 00:00:00 2024-02-01 00:00:00 [facility] Alcohol intake 2023-12-28 00:00:00 2023-12-28 00:00:00 1.71 /d [facility] History of Social function 2023-12-28 00:00:00 2023-12-28 00:00:00 [facility] Exposure to SARS-CoV-2 (event) 2022-10-12 00:00:00 2022-10-22 14:30:00 Not sure [facility] Alcohol Comment 2021-03-04 00:00:00 2021-03-04 00:00:00 was drinking daily, now a couple days a week [facility] Education 2020-12-15 00:00:00 2020-12-15 00:00:00 8 [facility] Smoking Status Start Date Stop Date Source Occasional tobacco smoker 2024-02-01 00:00:00 [facility] Ex-smoker 2023-12-28 00:00:00 2023-12-28 00:00:00 [facility] Current Smoker 2022-11-22 00:00:00 [facility] Medications Ordered Medication Name Filled Medication Name Start Date Stop Date Current Medication? Ordering Clinician Indication Dosage Frequency Signature (SIG) Comments Components Source HYDROcodone -acetaminop hen (NORCO 5) 5-325 mg tablet 1 tablet 04-03 08:45: 00 04-03 08:44 :00 No 1{tbl} 1 tablet, Oral, ONCE, 1 dose, On Mon04/03/24 at 0345, [facility]OOKE [facility] heparin (1,000 unit/mL, 10 mL vial) 02-28 13:20: 00 02-28 14:12 :12 No ONCE INTRA PROCEDURE, Starting on Kaylie 02/29/24 at 0820, Until Kaylie 02/29/24 at 0912, Routine, Intra-op [facility] heparin 5,000 unit/mL injection 02-28 13:00: 00 02-28 14:22 :28 No PRN, Starting on Kaylie 02/29/24 at 0800, Until Kaylie 02/29/24 at 0922, Routine, Intra-op [facility] bupivacaine (preserv free) (SENSORCAIN E MPF) 0.25 % (2.5 mg/mL) injection 02-28 12:59: 00 02-28 14:22 :28 No PRN, Starting on Kaylie 02/29/24 at 0759, Until Kaylie 24 at 0922, Routine, Intra-op [facility] NaCl 0.9% (NS) IV infusion 02-28 12:59: 00 02-28 14:22 :28 No CONTINUOUS PRN, Starting on Kaylie 02/29/24 at 0759, Until Kaylie 24 at 0922, Routine, Intra-op [facility] ceFAZolin (ANCEF) injection 02-28 12:51: 00 02-28 14:12 :12 No Slow IV Push, ONCE INTRA PROCEDURE, Starting on Kaylie 02/29/24 at 0751, Until Kaylie 24 at 0912, BROOKE, Intra-op [facility] lactated ringers IV infusion 02-28 12:39: 00 02-28 14:12 :12 No IV Infusion, CONTINUOUS PRN, Starting on Kaylie 02/29/24 at 0739, Until Kaylie 02/29/24 at 0912, Routine, Intra-op [facility] midazolam (VERSED) injection 02-28 12:26: 00 02-28 14:12 :12 No IV Push, ONCE INTRA PROCEDURE, Starting on Kaylie 02/29/24 at 0726, Until Kaylie 02/29/24 at 0912, Routine, Intra-op [facility] NaCl 0.9% (NS) IV infusion 1,000 mL 02-28 11:45: 00 02-28 17:50 :30 No 1000mL at 42 mL/hr, IV Infusion, CONTINUOUS , Starting on Kaylie 02/29/24 at 0645, Until Kaylie 02/29/24 at 1250, Routine, DSU Pre-op [facility] atorvastati n 20 mg tablet 02-28 10:50: 29 Yes 20mg Take 1 tablet by mouth at bedtime. [facility] bimatoprost (LUMIGAN) 0.01 % ophthalmic drops 02-28 10:50: 29 Yes 1[drp] Place 1 Drop in each eye in the morning. [facility] atenoloL 25 mg tablet 02-28 10:50: 29 Yes 25mg Take 1 tablet by mouth at bedtime. [facility] calcium acetate,stephen sphat bind, 667 mg capsule 02-28 10:50: 29 Yes 667mg Take 1 capsule by mouth in the morning and 1 capsule at noon and 1 capsule in the evening. Take with meals. [facility] sodium bicarbonate 650 mg tablet 02-28 10:50: 29 Yes TAKE 1 TABLET BY MOUTH IN THE MORNING AND 1 AT NOON AND 1 IN THE EVENING WITH MEALS [facility] atorvastati n 20 mg tablet 02-14 14:28: 43 Yes 20mg Take 1 tablet by mouth at bedtime. [facility] bimatoprost (LUMIGAN) 0.01 % ophthalmic drops 02-14 14:28: 43 Yes 1[drp] Place 1 Drop in each eye in the morning. [facility] atenoloL 25 mg tablet 02-14 14:28: 43 Yes 25mg Take 1 tablet by mouth at bedtime. [facility] calcium acetate,stephen sphat bind, 667 mg capsule 02-14 14:28: 43 Yes 667mg Take 1 capsule by mouth in the morning and 1 capsule at noon and 1 capsule in the evening. Take with meals. [facility] sodium bicarbonate 650 mg tablet 02-14 14:28: 43 Yes TAKE 1 TABLET BY MOUTH IN THE MORNING AND 1 AT NOON AND 1 IN THE EVENING WITH MEALS [facility] atorvastati n 20 mg tablet 02-14 13:53: 20 Yes 20mg Take 1 tablet by mouth at bedtime. [facility] bimatoprost (LUMIGAN) 0.01 % ophthalmic drops 02-14 13:53: 20 Yes 1[drp] Place 1 Drop in each eye in the morning. [facility] atenoloL 25 mg tablet 02-14 13:53: 20 Yes 25mg Take 1 tablet by mouth at bedtime. [facility] calcium acetate,stephen sphat bind, 667 mg capsule 02-14 13:53: 20 Yes 667mg Take 1 capsule by mouth in the morning and 1 capsule at noon and 1 capsule in the evening. Take with meals. [facility] sodium bicarbonate 650 mg tablet 02-14 13:53: 20 Yes TAKE 1 TABLET BY MOUTH IN THE MORNING AND 1 AT NOON AND 1 IN THE EVENING WITH MEALS [facility] sodium bicarbonate 650 mg tablet 02-14 08:35: 34 Yes TAKE 1 TABLET BY MOUTH IN THE MORNING AND 1 AT NOON AND 1 IN THE EVENING WITH MEALS [facility] atorvastati n 20 mg tablet 02-14 08:34: 36 Yes 20mg Take 1 tablet by mouth at bedtime. [facility] bimatoprost (LUMIGAN) 0.01 % ophthalmic drops 02-14 08:34: 36 Yes 1[drp] Place 1 Drop in each eye in the morning. [facility] atenoloL 25 mg tablet 02-14 08:34: 36 Yes 25mg Take 1 tablet by mouth at bedtime. [facility] calcium acetate,stephen sphat bind, 667 mg capsule 02-14 08:34: 36 Yes 667mg Take 1 capsule by mouth in the morning and 1 capsule at noon and 1 capsule in the evening. Take with meals. [facility] HYDROcodone -acetaminop hen 5-325 mg tablet 02-08 00:00: 00 Yes 1{tbl} Take 1 tablet by mouth. [facility] HYDROcodone -acetaminop hen (NORCO) 10-325 mg tablet 1 tablet 02-01 15:45: 57 02-01 20:49 :19 No 1{tbl} [facility] HYDROcodone -acetaminop hen (NORCO 5) 5-325 mg tablet 1 tablet 02-01 15:45: 57 02-01 16:24 :00 No 1{tbl} 1 tablet, Oral, PRN, 1 dose, Starting on Mon02/02/24 at 1045, Until Mon02/02/24 at 1124, Routine, Pain (scale 4-6), DSU Recovery [facility] acetaminoph en (TYLENOL) tablet 650 mg 02-01 15:45: 57 02-01 20:49 :19 No 650mg [facility] bupivacaine (preserv free) (SENSORCAIN E MPF) 0.25 % (2.5 mg/mL) 30 mL, lidocaine-e pinephrine (XYLOCAINE W/EPINEPHRI NE) 1 %-1:200,000 30 mL 02-01 15:05: 00 02-01 20:49 :19 No PRN, Starting on Mon02/02/24 at 1005, Intra-op [facility] NaCl 0.9% (NS) IV infusion 02-01 15:05: 00 02-01 20:49 :19 No CONTINUOUS PRN, Starting on Mon02/02/24 at 1005, Until Mon02/02/24 at 1549, Routine, Intra-op [facility] heparin lock flush (HEPARIN LOCKFLUSH(P ORCINE)(PF) ) 100 unit/mL injection 02-01 15:02: 00 02-01 20:49 :19 No PRN, Starting on Mon02/02/24 at 1002, Until Mon02/02/24 at 1549, Routine, Intra-op [facility] NaCl 0.9% (NS) IV infusion 1,000 mL 02-01 14:30: 00 02-01 20:49 :19 No 1000mL at 42 mL/hr, IV Infusion, CONTINUOUS , Starting on Mon02/02/24 at 0930, Until Mon02/02/24 at 1549, Routine, DSU Pre-op [facility] HYDROcodone -acetaminop hen 5-325 mg tablet 524 00:00: 00 02-09 04:59 :00 No [id number] 1{tbl} Take 1 tablet by mouth every 6 (six) hours as needed for Pain (scale 7-10) for up to 7 days. Indication s: acute pain [facility] methocarbam oL 500 mg tablet 10 00:00: 00 Yes 1000mg Take 2 tablets by mouth 4 (four) times daily. As needed [facility] bumetanide 2 mg tablet 01-17 00:00: 00 Yes 2mg Take 1 tablet by mouth ONCE PRN (Lower extremity swelling). [facility] bimatoprost (LUMIGAN) 0.01 % ophthalmic drops 12-27 09:08: 29 Yes 1[drp] Place 1 Drop in each eye in the morning. [facility] atenoloL 25 mg tablet 12-27 09:08: 29 Yes 25mg Take 1 tablet by mouth at bedtime. [facility] calcium acetate,stephen sphat bind, 667 mg capsule 12-27 09:08: 29 Yes 667mg Take 1 capsule by mouth in the morning and 1 capsule at noon and 1 capsule in the evening. Take with meals. [facility] sodium bicarbonate 650 mg tablet 12-27 09:08: 29 Yes TAKE 1 TABLET BY MOUTH IN THE MORNING AND 1 AT NOON AND 1 IN THE EVENING WITH MEALS [facility] liraglutide (VICTOZA 2-CUCO) 0.6 mg/0.1 mL (18 mg/3 mL) injection 12-27 09:08: 29 01-21 00:00 :00 No 1.2mg inject 1.2 mg under the skin. [facility] amLODIPine 10 mg tablet 12-21 00:00: 00 12-22 04:59 :00 No 10mg Take 1 tablet by mouth in the morning. [facility] traZODone 50 mg tablet 12-21 00:00: 00 12-22 04:59 :00 No 50mg Take 1 tablet by mouth as needed. [facility] latanoprost 0.005 % ophthalmic drops 12-01 00:00: 00 Yes 1[drp] Place 1 Drop in both eyes every evening. [facility] hydralAZINE (APRESOLINE ) injection 10 mg 09-16 02:15: 00 09-16 02:12 :00 No 10mg 10 mg, Slow IV Push, ONCE, 1 dose, On Mon09/15/23 at 2015, [facility] fluticasone propionate 50 mcg/actuati on nasal spray 2022-09 00:00: 00 08-10 05:59 :00 No 1{spray } Use 1 Powell in each nostril. [facility] diphenhydrA MINE (BENADRYL) tablet 50 mg 10-22 20:30: 00 10-22 20:29 :00 No 50mg 50 mg, Oral, ONCE, 1 dose, On 10/22/22 at 1430, [facility] Victoza 18 MG/3ML Victoza 18 MG/3ML 03-02 00:00: 00 04-01 00:00 :00 No QD Victoza 18 MG/3ML Vitamin D3 40720 UNIT Vitamin D3 39386 UNIT 03-01 00:00: 00 05-30 00:00 :00 No 1{capsu le} Vitamin D3 92551 UNIT cloNIDine (CATAPRES) tablet 0.2 mg 01-06 13:00: 00 Yes .2mg 0.2 mg, Oral, TID, First dose on Kaylie 01/06/22 at 0800, Until Discontinu ed, Routine [facility] Lisinopril- hydroCHLORO thiazide 20-12.5 MG Lisinopril- hydroCHLORO thiazide 20-12.5 MG 01-04 00:00: 00 No 1{table t} QD Lisinopril -hydroCHLO ROthiazide 20-12.5 MG metFORMIN HCl ER 500 MG metFORMIN HCl ER 500 MG 01-04 00:00: 00 No BID metFORMIN HCl ER 500 MG amLODIPine Besylate 5 MG amLODIPine Besylate 5 MG 26 00:00: 00 No 1{table t} QD amLODIPine Besylate 5 MG lancets (FREESTYLE LANCETS) 28 gauge [facility] 3-28 00:00: 00 Yes [id number] USE ONE LANCET TO CHECK BLOOD GLUCOSE 2 TO 3 TIMES A DAY [facility] blood sugar diagnostic strip 09-21 00:00: 00 Yes [id number] Check sugars 2-3 times a day. Dx Code E11.9. Brand per insurance. Patient has uncontroll ed diabetes and needs to check sugars at least 2 times a day. ACCU-CHEK- same brand as meter [facility] Blood-Gluco se Meter Kit 09-21 00:00: 00 Yes [id number] Check sugars 2-3 times a day. Dx Code E11.9. Brand per insurance. Patient has uncontroll ed diabetes and needs to check sugars at least 2 times a day. ACCU-CHEK [facility] Lancets [facility] 09-21 00:00: 00 Yes [id number] Check sugars 2-3 times a day. Dx Code E11.9. Brand per insurance. Patient has uncontroll ed diabetes and needs to check sugars at least 2 times a day. ACCU-CHEK- same brand as meter [facility] blood sugar diagnostic strip 09-21 00:00: 00 Yes [id number] Check sugars 2-3 times a day. Dx Code E11.9. Brand per insurance. Patient has uncontroll ed diabetes and needs to check sugars at least 2 times a day. ACCU-CHEK- same brand as meter [facility] Blood-Gluco se Meter Kit 09-21 00:00: 00 Yes [id number] Check sugars 2-3 times a day. Dx Code E11.9. Brand per insurance. Patient has uncontroll ed diabetes and needs to check sugars at least 2 times a day. ACCU-CHEK [facility] sildenafiL (VIAGRA) 100 mg tablet 1-07 00:00: 00 Yes [id number] 100mg Take 1 tablet by mouth daily. [facility] sildenafiL (VIAGRA) 100 mg tablet 09-17 00:00: 00 Yes [id number] 100mg Take 1 tablet by mouth daily. [facility] metformin ER 500 mg 24 hr tablet 2020-09 00:00: 00 Yes [id number] 1000mg Take 2 tablets by mouth 2 (two) times daily. [facility] metformin ER 500 mg 24 hr tablet 2020-09 00:00: 00 Yes [id number] 1000mg Take 2 tablets by mouth 2 (two) times daily. [facility] metformin ER 500 mg 24 hr tablet 2020-09 00:00: 00 Yes [id number] 1000mg Take 2 tablets by mouth 2 (two) times daily. [facility] metformin ER 500 mg 24 hr tablet 2020-09 00:00: 00 Yes [id number] 1000mg Take 2 tablets by mouth 2 (two) times daily. [facility] lisinopriL- hydrochloro thiazide 20-25 mg per tablet 2020-09 00:00: 00 Yes [id number] 1{tbl} Take 1 tablet by mouth daily. [facility] metformin ER 500 mg 24 hr tablet 2020-09 00:00: 00 02-28 00:00 :00 No [id number] 1000mg Take 2 tablets by mouth 2 (two) times daily. [facility] doxazosin 2 mg tablet 2020-09 00:00: 00 01-21 00:00 :00 No [id number] 2mg Take 1 tablet by mouth at bedtime. [facility] bimatoprost (LUMIGAN) 0.01 % ophthalmic drops 05-06 11:38: 50 Yes 1[drp] Place 1 Drop in each eye in the morning. [facility] atorvastati n 20 mg tablet 04-09 08:46: 06 Yes 20mg Take 1 tablet by mouth at bedtime. [facility] Insulin Regular Human (NOVOLIN R FLEXPEN) 100 unit/mL (3 mL) InPn 04-09 00:00: 00 01-21 00:00 :00 No [id number] Check blood sugars fasting before meals and 2 hours after 1 meal of the day. If sugars are 180-200 take 6 units of insulin, 201-250 take 8 units, 251-300 take 10 units, 301-350 take 12 units, 351-400 take 14 units, 401-450 take 16 units, 451-500 take 18 units, if >500 take 20 units, recheck in 2 hours. If still high call the clinic. [facility] Blood-Gluco se Meter Kit 04-09 00:00: 00 09-21 00:00 :00 No [id number] Check sugars 2-3 times a day. Dx Code E11.9. Brand per insurance. Patient has uncontroll ed diabetes and needs to check sugars at least 2 times a day. [facility] blood sugar diagnostic strip 04-09 00:00: 00 09-21 00:00 :00 No [id number] Check sugars 2-3 times a day. Dx Code E11.9. Brand per insurance. Patient has uncontroll ed diabetes and needs to check sugars at least 2 times a day. [facility] Lancets Misc 04-09 00:00: 00 09-21 00:00 :00 No [id number] Check sugars 2-3 times a day. Dx Code E11.9. Brand per insurance. Patient has uncontroll ed diabetes and needs to check sugars at least 2 times a day. [facility] sildenafiL (VIAGRA) 100 mg tablet 04-09 00:00: 00 09-17 00:00 :00 No [id number] 100mg Take 1 tablet by mouth daily. [facility] ergocalcife rol, vitamin d2, (VITAMIN D2) 1,250 mcg (50,000 unit) capsule 03-08 00:00: 00 02-28 00:00 :00 No [id number] 25973M Take 1 capsule by mouth weekly. [facility] insulin syr/ndl U100 half adri 0.3 mL 30 gauge x 1/2" Syrg 03-08 00:00: 00 01-21 00:00 :00 No [id number] 1{syrin ge} 1 Syringe 2 (two) times daily. [facility] insulin glargine (LANTUS U-100 INSULIN) 100 unit/mL injection 03-04 00:00: 00 01-21 00:00 :00 No [id number] 20U inject 20 Units under the skin daily. [facility] prednisoLON E acetate 1 % ophthalmic suspension drops 12-18 00:00: 00 Yes 1[drp] Place 1 Drop in both eyes in the morning. [facility] metFORMIN HCl 500 MG metFORMIN HCl 500 [...] t} QD Lisinopril 20 MG Vitamin D3 81293 UNIT Vitamin D3 33174 UNIT No 1{capsu le} Vitamin D3 03779 UNIT Lisinopril 20 MG Lisinopril 20 MG No 1{table t} QD Lisinopril 20 MG Victoza 18 MG/3ML Victoza 18 MG/3ML No QD Victoza 18 MG/3ML Vitamin D3 13123 UNIT Vitamin D3 32579 UNIT No 1{capsu le} Vitamin D3 27274 UNIT amLODIPine Besylate 5 MG amLODIPine Besylate [...] Atorvastat in Calcium 20 MG Vitamin D3 43660 UNIT Vitamin D3 60156 UNIT No 1{capsu le} Vitamin D3 44516 UNIT Lisinopril- hydroCHLORO thiazide 20-12.5 MG Lisinopril- [...] Atorvastat in Calcium 20 MG Vitamin D3 64496 UNIT Vitamin D3 80933 UNIT No 1{capsu le} Vitamin D3 70658 UNIT Lisinopril- hydroCHLORO thiazide 20-12.5 MG Lisinopril- [...] No amLODIPine Besylate 5 MG Vitamin D3 71465 UNIT Vitamin D3 07663 UNIT No 1{capsu le} Vitamin D3 32847 UNIT Atorvastati n Calcium 20 MG Atorvastati [...] Flucelvax - single dose syringe 2022-06-16 08:58:00 [facility] Flucelvax - single dose syringe Flucelvax - single dose syringe 2022-06-16 08:58:00 [facility] Flucelvax - single dose syringe Flucelvax - single dose syringe 2022-06-16 08:58:00 [facility] Pneumococcal 15 Conjugate, PCV15 (Vaxneuvance) 2022-01-04 00:00:00 Completed TDAP 2022-01-04 00:00:00 Completed SARS-COV-2 COVID-19 VACCINE - (MODERNA) 2021-11-04 00:00:00 Completed SARS-COV-2 COVID-19 MODERNA 12+ YRS VACCINE 2020-12-06 00:00:00 Completed SARS-COV-2 COVID-19 MODERNA VACCINE 2020-12-06 00:00:00 Completed [facility] SARS-COV-2 COVID-19 MODERNA VACCINE 2020-12-06 00:00:00 Completed [facility] SARS-COV-2 COVID-19 MODERNA VACCINE 2020-12-06 00:00:00 Completed [facility] SARS-COV-2 COVID-19 MODERNA 12+ YRS VACCINE 2020-12-06 00:00:00 Completed [facility] SARS-COV-2 COVID-19 MODERNA 12+ YRS VACCINE 2020-12-06 00:00:00 Completed [facility] SARS-COV-2 COVID-19 MODERNA 12+ YRS VACCINE 2020-11-08 00:00:00 Completed [facility] SARS-COV-2 COVID-19 MODERNA VACCINE 2020-11-08 00:00:00 Completed [facility] SARS-COV-2 COVID-19 MODERNA VACCINE 2020-11-08 00:00:00 Completed [facility] SARS-COV-2 COVID-19 MODERNA VACCINE 2020-11-08 00:00:00 Completed [facility] SARS-COV-2 COVID-19 MODERNA 12+ YRS VACCINE 2020-11-08 00:00:00 Completed [facility] SARS-COV-2 COVID-19 MODERNA 12+ YRS VACCINE 2020-11-08 00:00:00 Completed [facility] SARS-COV-2 COVID-19 MODERNA 12+ YRS VACCINE Unknown Completed [facility] Pneumococcal 15 Conjugate, PCV15 (Vaxneuvance) Unknown Completed [facility] TDAP Unknown Completed [facility] SARS-COV-2 COVID-19 MODERNA 12+ YRS VACCINE Unknown Completed [facility] Pneumococcal 15 Conjugate, PCV15 (Vaxneuvance) Unknown Completed [facility] TDAP Unknown Completed [facility] SARS-COV-2 COVID-19 MODERNA 12+ YRS VACCINE Unknown Completed [facility] Pneumococcal 15 Conjugate, PCV15 (Vaxneuvance) Unknown Completed [facility] TDAP Unknown Completed [facility] SARS-COV-2 COVID-19 MODERNA 12+ YRS VACCINE Unknown Completed [facility] Pneumococcal 15 Conjugate, PCV15 (Vaxneuvance) Unknown Completed [facility] TDAP Unknown Completed [facility] SARS-COV-2 COVID-19 MODERNA 12+ YRS VACCINE Unknown Completed [facility] Pneumococcal 15 Conjugate, PCV15 (Vaxneuvance) Unknown Completed [facility] TDAP Unknown Completed [facility] SARS-COV-2 COVID-19 MODERNA 12+ YRS VACCINE Unknown Completed [facility] Pneumococcal 15 Conjugate, PCV15 (Vaxneuvance) Unknown Completed [facility] TDAP Unknown Completed [facility] SARS-COV-2 COVID-19 MODERNA 12+ YRS VACCINE Unknown Completed [facility] Pneumococcal 15 Conjugate, PCV15 (Vaxneuvance) Unknown Completed [facility] TDAP Unknown Completed [facility] SARS-COV-2 COVID-19 MODERNA 12+ YRS VACCINE Unknown Completed [facility] Pneumococcal 15 Conjugate, PCV15 (Vaxneuvance) Unknown Completed [facility] TDAP Unknown Completed [facility] SARS-COV-2 COVID-19 MODERNA 12+ YRS VACCINE Unknown Completed [facility] Pneumococcal 15 Conjugate, PCV15 (Vaxneuvance) Unknown Completed [facility] TDAP Unknown Completed [facility] SARS-COV-2 COVID-19 MODERNA 12+ YRS VACCINE Unknown Completed [facility] Pneumococcal 15 Conjugate, PCV15 (Vaxneuvance) Unknown Completed [facility] TDAP Unknown Completed [facility] SARS-COV-2 COVID-19 MODERNA 12+ YRS VACCINE Unknown Completed [facility] Pneumococcal 15 Conjugate, PCV15 (Vaxneuvance) Unknown Completed [facility] TDAP Unknown Completed [facility] SARS-COV-2 COVID-19 MODERNA 12+ YRS VACCINE Unknown Completed [facility] Pneumococcal 15 Conjugate, PCV15 (Vaxneuvance) Unknown Completed [facility] TDAP Unknown Completed [facility] SARS-COV-2 COVID-19 MODERNA 12+ YRS VACCINE Unknown Completed [facility] Pneumococcal 15 Conjugate, PCV15 (Vaxneuvance) Unknown Completed [facility] TDAP Unknown Completed [facility] SARS-COV-2 COVID-19 MODERNA 12+ YRS VACCINE Unknown Completed [facility] Pneumococcal 15 Conjugate, PCV15 (Vaxneuvance) Unknown Completed [facility] TDAP Unknown Completed [facility] SARS-COV-2 COVID-19 MODERNA 12+ YRS VACCINE Unknown Completed [facility] Pneumococcal 15 Conjugate, PCV15 (Vaxneuvance) Unknown Completed [facility] TDAP Unknown Completed [facility] SARS-COV-2 COVID-19 MODERNA 12+ YRS VACCINE Unknown Completed [facility] Pneumococcal 15 Conjugate, PCV15 (Vaxneuvance) Unknown Completed [facility] TDAP Unknown Completed [facility] SARS-COV-2 COVID-19 MODERNA 12+ YRS VACCINE Unknown Completed [facility] Pneumococcal 15 Conjugate, PCV15 (Vaxneuvance) Unknown Completed [facility] TDAP Unknown Completed [facility] SARS-COV-2 COVID-19 MODERNA 12+ YRS VACCINE Unknown Completed [facility] Pneumococcal 15 Conjugate, PCV15 (Vaxneuvance) Unknown Completed [facility] TDAP Unknown Completed [facility] SARS-COV-2 COVID-19 MODERNA 12+ YRS VACCINE Unknown Completed [facility] Pneumococcal 15 Conjugate, PCV15 (Vaxneuvance) Unknown Completed [facility] TDAP Unknown Completed [facility] SARS-COV-2 COVID-19 MODERNA 12+ YRS VACCINE Unknown Completed [facility] SARS-COV-2 COVID-19 MODERNA 12+ YRS VACCINE Unknown Completed [facility] SARS-COV-2 COVID-19 MODERNA 12+ YRS VACCINE Unknown Completed [facility] SARS-COV-2 COVID-19 MODERNA 12+ YRS VACCINE Unknown Completed [facility] SARS-COV-2 COVID-19 MODERNA 12+ YRS VACCINE Unknown Completed [facility] SARS-COV-2 COVID-19 MODERNA 12+ YRS VACCINE Unknown Completed [facility] Pneumococcal 15 Conjugate, PCV15 (Vaxneuvance) Unknown Completed [facility] TDAP Unknown Completed [facility] SARS-COV-2 COVID-19 MODERNA 12+ YRS VACCINE Unknown Completed [facility] Pneumococcal 15 Conjugate, PCV15 (Vaxneuvance) Unknown Completed [facility] TDAP Unknown Completed [facility] Pneumococcal 15 Conjugate, PCV15 (Vaxneuvance) Unknown Completed [facility] TDAP Unknown Completed [facility] SARS-COV-2 COVID-19 MODERNA 12+ YRS VACCINE Unknown Completed [facility] SARS-COV-2 COVID-19 VACCINE - (MODERNA) Unknown Completed [facility] Pneumococcal 15 Conjugate, PCV15 (Vaxneuvance) Unknown Completed [facility] TDAP Unknown Completed [facility] SARS-COV-2 COVID-19 MODERNA 12+ YRS VACCINE Unknown Completed [facility] Pneumococcal 15 Conjugate, PCV15 (Vaxneuvance) Unknown Completed [facility] TDAP Unknown Completed [facility] Flucelvax - single dose syringe Flucelvax - single dose syringe Unknown Completed [facility] Flucelvax - single dose syringe Flucelvax - single dose syringe Unknown Completed [facility] Vital Signs Vital Name Observation Time Observation Value Comments S ource Systolic blood pressure 2024-07-15 19:36:00 152 mm[Hg] [facility] Diastolic blood pressure 2024-07-15 19:36:00 83 mm[Hg] [facility] Heart rate 2024-07-15 19:36:00 82 /min [facility] Body temperature 2024-07-15 19:36:00 37.28 Kristal [facility] Respiratory rate 2024-07-15 19:36:00 17 /min [facility] Body height 2024-07-15 19:36:00 172.7 cm [facility] Body weight 2024-07-15 19:36:00 72.576 kg [facility] BMI 2024-07-15 19:36:00 24.33 kg/m2 [facility] Oxygen saturation in Arterial blood by Pulse oximetry 2024-07-15 19:36:00 99 /min [facility] Systolic blood pressure 2024-04-03 11:00:00 162 mm[Hg] [facility] Diastolic blood pressure 2024-04-03 11:00:00 93 mm[Hg] [facility] Heart rate 2024-04-03 11:00:00 81 /min [facility] Body temperature 2024-04-03 11:00:00 37.22 Kristal [facility] Respiratory rate 2024-04-03 11:00:00 13 /min [facility] Oxygen saturation in Arterial blood by Pulse oximetry 2024-04-03 11:00:00 98 /min [facility] Body height 2024-04-03 08:31:00 172.7 cm [facility] Body weight 2024-04-03 08:31:00 76.204 kg [facility] BMI 2024-04-03 08:31:00 25.54 kg/m2 [facility] Systolic blood pressure 2024-03-28 20:56:00 157 mm[Hg] [facility] Diastolic blood pressure 2024-03-28 20:56:00 90 mm[Hg] [facility] Heart rate 2024-03-28 20:53:00 104 /min [facility] Respiratory rate 2024-03-28 20:53:00 20 /min [facility] Body height 2024-03-28 20:53:00 172.7 cm [facility] Body weight 2024-03-28 20:53:00 70.308 kg [facility] BMI 2024-03-28 20:53:00 23.57 kg/m2 [facility] Oxygen saturation in Arterial blood by Pulse oximetry 2024-03-28 20:53:00 98 /min [facility] Heart rate 2024-02-29 14:50:00 70 /min [facility] Respiratory rate 2024-02-29 14:50:00 14 /min [facility] Oxygen saturation in Arterial blood by Pulse oximetry 2024-02-29 14:50:00 99 /min [facility] Systolic blood pressure 2024-02-29 14:45:00 144 mm[Hg] [facility] Diastolic blood pressure 2024-02-29 14:45:00 80 mm[Hg] [facility] Body temperature 2024-02-29 11:52:00 36.61 Kristal [facility] Body weight 2024-02-15 19:00:00 70.761 kg [facility] BMI 2024-02-15 19:00:00 23.72 kg/m2 [facility] Heart rate 2024-02-29 14:50:00 70 /min [facility] Respiratory rate 2024-02-29 14:50:00 14 /min [facility] Oxygen saturation in Arterial blood by Pulse oximetry 2024-02-29 14:50:00 99 /min [facility] Systolic blood pressure 2024-02-29 14:45:00 144 mm[Hg] [facility] Diastolic blood pressure 2024-02-29 14:45:00 80 mm[Hg] [facility] Body temperature 2024-02-29 11:52:00 36.61 Kristal [facility] Body weight 2024-02-15 19:00:00 70.761 kg [facility] BMI 2024-02-15 19:00:00 23.72 kg/m2 [facility] Respiratory rate 2024-02-29 14:09:00 20 /min [facility] Systolic blood pressure 2024-02-15 18:53:00 154 mm[Hg] [facility] Diastolic blood pressure 2024-02-15 18:53:00 88 mm[Hg] [facility] Heart rate 2024-02-15 18:53:00 89 /min [facility] Body temperature 2024-02-15 18:51:00 36.56 Kristal [facility] Respiratory rate 2024-02-15 18:51:00 18 /min [facility] Body height 2024-02-15 18:51:00 172.7 cm [facility] Body weight 2024-02-15 18:51:00 70.761 kg [facility] BMI 2024-02-15 18:51:00 23.72 kg/m2 [facility] Oxygen saturation in Arterial blood by Pulse oximetry 2024-02-15 18:51:00 97 /min [facility] Systolic blood pressure 2024-02-15 13:37:00 175 mm[Hg] [facility] Diastolic blood pressure 2024-02-15 13:37:00 102 mm[Hg] [facility] Heart rate 2024-02-15 13:37:00 89 /min [facility] Oxygen saturation in Arterial blood by Pulse oximetry 2024-02-15 13:37:00 100 /min [facility] Body temperature 2024-02-15 13:32:00 35.33 Kristal [facility] Body height 2024-02-15 13:32:00 172.7 cm [facility] Body weight 2024-02-15 13:32:00 70.308 kg [facility] BMI 2024-02-15 13:32:00 23.57 kg/m2 [facility] Systolic blood pressure 2024-02-03 23:48:00 126 mm[Hg] [facility] Diastolic blood pressure 2024-02-03 23:48:00 75 mm[Hg] [facility] Heart rate 2024-02-03 23:48:00 72 /min [facility] Body temperature 2024-02-03 23:48:00 36.72 Kristal [facility] Respiratory rate 2024-02-03 23:48:00 16 /min [facility] Body height 2024-02-03 23:48:00 172.7 cm [facility] Body weight 2024-02-03 23:48:00 71.668 kg [facility] BMI 2024-02-03 23:48:00 24.02 kg/m2 [facility] Oxygen saturation in Arterial blood by Pulse oximetry 2024-02-03 23:48:00 99 /min [facility] Heart rate 2024-02-02 17:41:00 66 /min [facility] Oxygen saturation in Arterial blood by Pulse oximetry 2024-02-02 17:41:00 95 /min [facility] Systolic blood pressure 2024-02-02 17:39:00 113 mm[Hg] [facility] Diastolic blood pressure 2024-02-02 17:39:00 69 mm[Hg] [facility] Respiratory rate 2024-02-02 17:39:00 10 /min [facility] Body temperature 2024-02-02 13:21:00 36.56 Kristal [facility] Body height 2024-02-01 14:29:00 172.7 cm [facility] Body weight 2024-02-01 14:29:00 68.9 kg [facility] BMI 2024-02-01 14:29:00 23.10 kg/m2 [facility] Heart rate 2024-02-02 16:17:00 65 /min [facility] Respiratory rate 2024-02-02 16:17:00 9 /min [facility] Oxygen saturation in Arterial blood by Pulse oximetry 2024-02-02 16:17:00 100 /min [facility] Systolic blood pressure 2024-02-02 16:13:00 126 mm[Hg] [facility] Diastolic blood pressure 2024-02-02 16:13:00 79 mm[Hg] [facility] Body temperature 2024-02-02 13:21:00 36.56 Kristal [facility] Body height 2024-02-01 14:29:00 172.7 cm [facility] Body weight 2024-02-01 14:29:00 68.9 kg [facility] BMI 2024-02-01 14:29:00 23.10 kg/m2 [facility] Systolic blood pressure 2024-01-22 18:14:00 174 mm[Hg] [facility] Diastolic blood pressure 2024-01-22 18:14:00 99 mm[Hg] [facility] Heart rate 2024-01-22 18:14:00 77 /min [facility] Oxygen saturation in Arterial blood by Pulse oximetry 2024-01-22 18:14:00 99 /min [facility] Body temperature 2024-01-22 18:13:00 36.28 Kristal [facility] Respiratory rate 2024-01-22 18:13:00 20 /min [facility] Body height 2024-01-22 18:13:00 172.7 cm [facility] Body weight 2024-01-22 18:13:00 70.761 kg [facility] BMI 2024-01-22 18:13:00 23.72 kg/m2 [facility] Systolic blood pressure 2023-12-28 14:02:00 182 mm[Hg] [facility] Diastolic blood pressure 2023-12-28 14:02:00 90 mm[Hg] [facility] Heart rate 2023-12-28 14:02:00 68 /min [facility] Body temperature 2023-12-28 13:54:00 36.17 Kristal [facility] Respiratory rate 2023-12-28 13:54:00 16 /min [facility] Body height 2023-12-28 13:54:00 172.7 cm [facility] Body weight 2023-12-28 13:54:00 71.753 kg [facility] BMI 2023-12-28 13:54:00 24.05 kg/m2 [facility] Oxygen saturation in Arterial blood by Pulse oximetry 2023-12-28 13:54:00 100 /min [facility] Systolic blood pressure 2023-09-16 04:00:00 176 mm[Hg] [facility] Diastolic blood pressure 2023-09-16 04:00:00 107 mm[Hg] [facility] Respiratory rate 2023-09-16 04:00:00 18 /min [facility] Oxygen saturation in Arterial blood by Pulse oximetry 2023-09-16 04:00:00 97 /min [facility] Heart rate 2023-09-16 03:10:00 112 /min [facility] Body temperature 2023-09-16 00:34:26 37.28 Kristal [facility] Body height 2023-09-16 00:23:00 172.7 cm [facility] Body weight 2023-09-16 00:23:00 71.668 kg [facility] BMI 2023-09-16 00:23:00 24.02 kg/m2 [facility] Systolic blood pressure 2022-10-22 20:23:00 158 mm[Hg] states he has not taken his BP medications yet today [facility] Diastolic blood pressure 2022-10-22 20:23:00 106 mm[Hg] states he has not taken his BP medications yet today [facility] Heart rate 2022-10-22 20:23:00 97 /min [facility] Body temperature 2022-10-22 20:23:00 37 Kristal [facility] Respiratory rate 2022-10-22 20:23:00 20 /min [facility] Body height 2022-10-22 20:23:00 172.7 cm [facility] Body weight 2022-10-22 20:23:00 75.751 kg [facility] BMI 2022-10-22 20:23:00 25.39 kg/m2 [facility] Oxygen saturation in Arterial blood by Pulse oximetry 2022-10-22 20:23:00 100 /min [facility] height 2022-06-16 08:20:00 66.5 [in_i] [facility] weight 2022-06-16 08:20:00 152 [lb_av] [facility] temperature 2022-06-16 08:20:00 96.7 [degF] [facility] bmi 2022-06-16 08:20:00 24.16 kg/m2 [facility] oximetry 2022-06-16 08:20:00 98 % [facility] respiratory rate 2022-06-16 08:20:00 18 /min [facility] blood pressure systolic 2022-06-16 08:20:00 138 mm[Hg] [facility] blood pressure diastolic 2022-06-16 08:20:00 82 mm[Hg] [facility] height 2022-04-04 15:00:00 68.00 [in_i] [facility] weight 2022-04-04 15:00:00 152.2 [lb_av] [facility] temperature 2022-04-04 15:00:00 98.4 [degF] [facility] bmi 2022-04-04 15:00:00 23.14 kg/m2 [facility] oximetry 2022-04-04 15:00:00 98 % [facility] respiratory rate 2022-04-04 15:00:00 18 /min [facility] blood pressure systolic 2022-04-04 15:00:00 137 mm[Hg] [facility] blood pressure diastolic 2022-04-04 15:00:00 76 mm[Hg] [facility] height 2022-04-04 15:20:00 68.00 [in_i] [facility] weight 2022-04-04 15:20:00 152.2 [lb_av] [facility] temperature 2022-04-04 15:20:00 98.4 [degF] [facility] bmi 2022-04-04 15:20:00 23.14 kg/m2 [facility] oximetry 2022-04-04 15:20:00 98 % [facility] respiratory rate 2022-04-04 15:20:00 18 /min [facility] blood pressure systolic 2022-04-04 15:20:00 137 mm[Hg] [facility] blood pressure diastolic 2022-04-04 15:20:00 76 mm[Hg] [facility] height 2022-03-02 09:10:00 68.00 [in_i] [facility] weight 2022-03-02 09:10:00 157.2 [lb_av] [facility] temperature 2022-03-02 09:10:00 97.3 [degF] [facility] bmi 2022-03-02 09:10:00 23.9 kg/m2 [facility] oximetry 2022-03-02 09:10:00 100 % [facility] respiratory rate 2022-03-02 09:10:00 18 /min [facility] blood pressure systolic 2022-03-02 09:10:00 138 mm[Hg] [facility] blood pressure diastolic 2022-03-02 09:10:00 82 mm[Hg] [facility] height 2022-02-16 08:00:00 68.00 [in_i] [facility] weight 2022-02-16 08:00:00 156.9 [lb_av] [facility] temperature 2022-02-16 08:00:00 97.2 [degF] [facility] bmi 2022-02-16 08:00:00 23.85 kg/m2 [facility] oximetry 2022-02-16 08:00:00 99 % [facility] respiratory rate 2022-02-16 08:00:00 18 /min [facility] blood pressure systolic 2022-02-16 08:00:00 132 mm[Hg] [facility] blood pressure diastolic 2022-02-16 08:00:00 76 mm[Hg] [facility] Systolic blood pressure 2022-01-06 04:43:00 189 mm[Hg] [facility] Diastolic blood pressure 2022-01-06 04:43:00 118 mm[Hg] [facility] Heart rate 2022-01-06 04:43:00 95 /min [facility] Respiratory rate 2022-01-06 04:43:00 20 /min [facility] Oxygen saturation in Arterial blood by Pulse oximetry 2022-01-06 04:43:00 99 /min [facility] Body temperature 2022-01-06 04:17:00 37.22 Kristal [facility] Body height 2022-01-06 04:17:00 172.7 cm [facility] Body weight 2022-01-06 04:17:00 77.111 kg [facility] BMI 2022-01-06 04:17:00 25.85 kg/m2 [facility] oximetry 2022-01-04 10:00:00 97 % [facility] respiratory rate 2022-01-04 10:00:00 17 /min [facility] blood pressure systolic 2022-01-04 10:00:00 137 mm[Hg] [facility] blood pressure diastolic 2022-01-04 10:00:00 85 mm[Hg] [facility] height 2022-01-04 10:00:00 68.00 [in_i] [facility] weight 2022-01-04 10:00:00 156.6 [lb_av] [facility] temperature 2022-01-04 10:00:00 97.8 [degF] [facility] bmi 2022-01-04 10:00:00 23.81 kg/m2 [facility] Procedures Procedure Date / Time Performed Performing Clinician Source URINALYSIS 2024-04-03 10:05:00 Berenice Asher [facility] NERVE BLOCK 2024-02-29 12:39:50 [id number] - MD ARTERIOVENOUS ANASTOMOSIS OPEN DIRECT 2024-02-29 12:15:00 Joaquín [facility] [id number] - MD ARVEN ANAST OPN F/ARM VEIN TRPOS 2024-02-29 12:15:00 Joaquín [facility] [id number] - MD ARVEN ANAST OPN UPR ARM BASILIC VEIN TRPOS 2024-02-29 12:15:00 Joaquín [facility] [id number] - MD ARVEN ANAST OPN UPR ARM CEPHALIC VEIN TRPOS 2024-02-29 12:15:00 Joaquín [facility] [id number] - MD CRTJ ARVEN FSTL XCP DIR ARVEN ANAST AUTOG GRF 2024-02-29 12:15:00 Joaquín [facility] [id number] - MD CRTJ ARVEN FSTL XCP DIR ARVEN ANAST NONAUTOG GRF 2024-02-29 12:15:00 Joaquín [facility] ISTAT ACUTE CARE VENOUS 2024-02-29 12:14:00 Juan Manuel Yanes [facility] POCT GLUCOSE (AUTOMATED) 2024-02-29 11:59:00 Jamal Yanes [facility] POCT GLUCOSE (AUTOMATED) 2024-02-29 11:59:00 [facility] 2024-02-29 11:57:00 Joaquín [facility] HB ABO GROUPING 2024-02-29 11:57:00 Joaquín [facility] XR CHEST 1 VW 2024-02-02 16:06:00 Judith Cabreranifer [facility] XR CHEST 1 2024-02-02 16:06:00 Denisse Cabrera [facility] FL TIME OR (NON-REPORTABLE) 2024-02-02 15:57:00 Michelle Moscoso [facility] FL TIME OR (NON-REPORTABLE) 2024-02-02 15:57:00 Michelle Moscoso [facility] HB ABO GROUPING 2024-02-02 14:17:00 Jazmine kwong [facility] HB ABO GROUPING 2024-02-02 14:17:00 Jazmine kwong [facility] [id number] - MD INSJ TUNNELED CVC W/O SUBQ PORT/NORMALIZER AGE 5 YR/> 2024-02-02 14:13:00 Michelle Moscoso [facility] [address] - CHG FLUORO CENTRAL VENOUS ACCESS DEV PLACEMENT 2024-02-02 14:13:00 Michelle Moscoso [facility] [address] - CHG US VASC ACCESS SITS VSL PATENCY NDL ENTRY 2024-02-02 14:13:00 Michelle Moscoso [facility] ISTA ACUTE CARE VENOUS 2024-02-02 13:54:00 Michelle Moscoso [facility] ACUTE CARE VENOUS 2024-02-02 13:54:00 Michelle Moscoso [facility] BASIC METABOLIC PANEL (NA, K, CL, CO2, GLUCOSE, BUN, CREATININE, CA) 2024-02-02 13:37:00 Michelle Moscoso [facility] BASIC METABOLIC PANEL (NA, K, CL, CO2, GLUCOSE, BUN, CREATININE, CA) 2024-02-02 13:37:00 Michelle Moscoso [facility] POCT GLUCOSE (AUTOMATED) 2024-02-02 13:34:00 Michelle Moscoso [facility] POCT GLUCOSE (AUTOMATED) 2024-02-02 13:34:00 Danis [facility] REFERRAL- REQUEST/RESPONSE 2023-09-28 06:01:00 Doctor Unassigned, [place] [facility] URINALYSIS 2023-09-16 01:26:00 [facility] XR CHEST 1 VW 2023-09-16 00:59:20 Singer [facility] POCT GLUCOSE (AUTOMATED) 2023-09-16 00:52:00 Lauri Thrasher [facility] LACTIC ACID WHOLE BLOOD 2023-09-16 00:49:00 Traci Thrasher [facility] TROPONIN I 2023-09-16 00:48:00 Grady [facility] COMP. METABOLIC PANEL (79113) 2023-09-16 00:48:00 Singer [facility] CBC WITH DIFF 2023-09-16 00:48:00 Singer [facility] RAPID INFLUENZA A/B 2023-09-16 00:48:00 Hiro Thrasher [facility] N-TERMINAL PRO-BNP 2023-09-16 00:48:00 Singer [facility] COVID-19 (ID NOW RAPID TESTING) 2023-09-16 00:48:00 Singer [facility] NOTICE OF PRIVACY PRACTICES 2023-09-16 00:05:57 Doctor Unassigned, [place] [facility] CONSENT/REFUSAL FOR DIAGNOSIS AND TREATMENT 2023-09-16 00:01:56 Doctor Unassigned, [place] [facility] CONSENT/REFUSAL FOR DIAGNOSIS AND TREATMENT 2022-10-22 20:18:01 Doctor Unassigned, [place] [facility] COMP. METABOLIC PANEL (13755) 2022-01-06 04:34:00 Davidson Torres [facility] CBC WITH DIFF 2022-01-06 04:34:00 Davidson Torres [facility] NOTICE OF PRIVACY PRACTICES 2022-01-06 04:06:29 Doctor Unassigned, [place] [facility] CONSENT/REFUSAL FOR DIAGNOSIS AND TREATMENT 2022-01-06 04:05:18 Doctor Unassigned, [place] [facility] Encounters Start Date/Time End Date/Time Encounter Type Admission Type Attending [facility] Care Facility Care Department Encounter ID Source 2024-01-22 15:12:39 Outpatient MICHELLE CARTY [facility] JESSICA [id number] [facility] 2022-11-17 14:49:01 Outpatient Barrow, Yunier STLMLC STLC [id number] [facility] 2022-08-19 11:40:02 Outpatient Barrow, Yunier STLMLC STLMLC [id number] [facility] 2022-06-15 11:26:03 Outpatient Barrow, Yunier STLMLC STLMLC [id number] [facility] 2022-03-02 15:11:02 Outpatient Barrow, Yunier STLMLC STLMLC [id number] [facility] 2022-02-15 10:14:02 Outpatient STLMLC STLMLC [id number] [facility] 2022-01-04 10:07:04 Outpatient JasmineRahul whalen STLMLC STLC [id number] [facility] 2021-07-11 11:01:51 Emergency [facility] [id number] [facility] 2021-07-09 22:11:41 Emergency [facility] [id number] [facility] 2024-07-15 14:15:00 2024-07-15 14:30:00 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 PROFESSIO NAL BUILDING 1.2.840.114 350.1.13.10 4.2.7.2.686 [id number] [facility] 2024-07-15 14:15:00 2024-07-15 14:15:00 Outpatient TRUNG ROWE [facility] [id number] [facility] 2024-07-15 13:42:00 2024-07-15 13:43:00 Emergency STEVE RUFFIN JULIO [facility] ERT [id number] [facility] 2024-07-15 13:42:00 2024-07-15 13:43:00 Emergency Steve Guerin [facility] AT [facility] 1.2840.114 350.1.13.10 4.2.7.2.686 [id number] [facility] 2024-05-09 15:30:00 2024-05-09 15:45:00 Office Visit Andrei Yanes [facility] NAL BUILDING 1.2.840.114 350.1.13.10 4.2.7.2.686 [id number] [facility] 2024-05-09 15:30:00 2024-05-09 15:30:00 Outpatient R ANDREI YANES [facility] [id number] [facility] 2024-04-25 13:45:00 2024-04-25 13:45:00 Outpatient R ANDREI YANES [facility] [id number] [facility] 2024-04-03 03:36:00 2024-04-03 06:10:00 Emergency BERENICE BUNCH SANDRA [facility] ERT [id number] [facility] 2024-04-03 03:36:00 2024-04-03 06:10:00 Emergency Berenice Asher [facility] 1.2840.114 350.1.13.10 4.2.7.2.686 [id number] [facility] 2024-03-28 15:30:00 2024-03-28 16:06:24 Outpatient R ANDREI YANES [facility] [id number] [facility] 2024-03-28 15:30:00 2024-03-28 16:06:24 Office Visit Joaquín [facility] PRIMARY AND SPECIALTY CARE 1.2.840.114 350.1.13.10 4.2.7.2.686 [id number] [facility] 2024-03-01 00:00:00 2024-03-01 13:57:18 Telephone Joaquín [facility] SPECIALTY [facility] 1.2.840.114 350.1.13.10 4.2.7.2.686 [id number] [facility] 2024-02-29 06:38:00 2024-02-29 09:55:00 Outpatient R JOAQUÍN [facility] [id number] [facility] 2024-02-29 06:38:00 2024-02-29 09:55:00 Hospital Encounter Joaquín [facility] 1.2.840.114 350.1.13.10 4.2.7.2.686 [id number] [facility] 2024-02-29 07:10:00 2024-02-29 09:50:00 Surgery Joaquín [facility] 1.2.840.114 350.1.13.10 4.2.7.2.686 [id number] [facility] 2024-02-29 07:20:00 2024-02-29 09:12:00 Anesthesia Event Jessica Manzano Fernando [facility] 1.2.840.114 350.1.13.10 4.2.7.2.686 [id number] [facility] 2024-02-23 00:00:00 2024-02-23 09:09:23 Telephone Geovanna Ferris do Beth [facility] 1.2.840.114 350.1.13.10 4.2.7.2.686 [id number] [facility] 2024-02-22 00:00:00 2024-02-22 13:15:19 Letter (Out) Estiven Haas [facility] 1..840.114 350.1.13.10 4.2.7.2.686 [id number] [facility] 2024-02-21 00:00:00 2024-02-21 11:17:43 Telephone Geovanna Ferris do [facility] 1.2.840.114 350.1.13.10 4.2.7.2.686 [id number] [facility] 2024-02-20 15:00:00 2024-02-20 23:59:00 Outpatient LIANA CARTAGENA [facility] [id number] [facility] 2024-02-20 14:57:56 2024-02-20 23:59:00 Hospital Encounter Smith, Liana [facility] 1.2.840.114 350.1.13.10 4.2.7.2.686 [id number] [facility] 2024-02-15 13:45:00 2024-02-15 14:02:57 Outpatient ANDREI MENDOZA [facility] [id number] [facility] 2024-02-15 13:45:00 2024-02-15 14:02:57 Office Visit Andrei Yanes [facility] PRIMARY [facility] SPECIALTY CARE 1.2.840.114 350.1.13.10 4.2.7.2.686 [id number] [facility] 2024-02-15 08:15:00 2024-02-15 08:30:00 Office Visit Michelle Moscoso [facility] PROFESSIO NAL BUILDING 1.2.840.114 350.1.13.10 4.2.7.2.686 [id number] [facility] 2024-02-06 00:00:00 2024-02-07 09:59:25 Telephone Michelle Moscoso [facility] BUILD[facility] 1.2.840.114 350.1.13.10 4.2.7.2.686 [id number] [facility] 2024-02-03 18:51:00 2024-02-03 19:29:00 Emergency X KATRIN[facility] ERT [id number] [facility] 2024-02-03 18:51:00 2024-02-03 19:29:[address] 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 SURGICAL [place] 1.2.840.114 350.1.13.10 4.2.7.2.686 [id number] [facility] 2024-02-02 09:30:00 2024-02-02 11:17:00 Surgery Michelle Moscoso [facility] 1.2.840.114 350.1.13.10 4.2.7.2.686 [id number] [facility] 2024-01-31 00:00:00 2024-02-01 09:45:12 [address] Moscoso [facility] PROFESSIO [facility] BU[facility] 1.2.840.114 350.1.13.10 4.2.7.2.686 [id number] [facility] 2024-01-31 00:00:00 2024-01-31 14:35:51 Letter (Out) Doctor Unassigned, [place] [facility] 1.2.840.114 350.1.13.10 4.2.7.2.686 [id number] [facility] 2024-01-31 14:00:00 2024-01-31 14:00:00 Outpatient Carson LAURA SMITHCB [facility] [id number] [facility] 2024-01-30 00:00:00 2024-01-30 11:54:48 [facility] 1.2.840.114 350.1.13.10 4.2.7.2.686 [id number] [facility] 2024-01-29 00:00:00 2024-01-29 12:00:59 Telephone Michelle Moscoso [facility] 1.2.840.114 350.1.13.10 4.2.7.2.686 [id number] [facility] 2024-01-29 00:00:00 2024-01-29 11:55:21 Telephone Michelle Moscoso [facility] 1.2840.114 350.1.13.10 4.2.7.2.686 [id number] [facility] 2024-01-22 13:00:00 2024-01-22 13:53:13 Outpatient R MICHELLE MOSCOSO [facility] [id number] [facility] 2024-01-22 13:00:00 2024-01-22 13:53:13 Office Visit Michelle Moscoso [facility] 1.2840.114 350.1.13.10 4.2.7.2.686 [id number] [facility] 2024-01-10 11:00:00 2024-01-10 11:00:00 Outpatient R SMITHLIANA [facility] [id number] [facility] 2024-01-01 14:00:00 2024-01-01 14:00:00 Outpatient R MICHELLE MOSCOSO [facility] [id number] [facility] 2023-12-28 09:00:00 2023-12-28 09:49:00 Outpatient R SARAH LAURACB [facility] [id number] [facility] 2023-12-28 09:00:00 2023-12-28 09:49:00 Office Visit Liana Smith [facility] 1.840.114 350.1.13.10 4.2.7.2.686 [id number] [facility] 2023-12-28 00:00:2023-12-28 00:00:00 Telephone Liana Smith [facility] 1.840.114 350.1.13.10 4.2.7.2.686 [id number] [facility] 2023-10-19 10:00:00 2023-10-19 10:00:00 Outpatient ANDREI MENDOZA [facility] [id number] [facility] 2023-10-13 09:30:00 2023-10-13 09:30:00 Out[facility] [id number] [facility] 2023-10-10 00:00:00 2023-10-10 00:00:00 Telephone Loren Yuan [facility] 1.840.114 350.1.13.10 4.2.7.2.686 [id number] [facility] 2023-10-03 17:30:00 2023-10-03 18:00:00 BOAZ Visit Follow Up [IHC/OD Only] Deanne Gibbons 2..840. 1.961819. 4.6.69319 [id number] 2..840.1. 567228.4.6. [id number] [facility] 2023-09-28 00:00:00 2023-09-28 00:00:00 Orders Only Doctor Unassigned, [place] [facility] 1.2.840.114 350.1.13.10 4.2.7.2.686 [id number] [facility] 2023-09-18 18:00:00 2023-09-18 19:00:00 BOAZ Visit Deanne Gibbons 2..840. 1.775700. 4.6.48502 [id number] 2..840.1. 590341.4.6. [id number] [facility] 2023-09-15 18:25:00 2023-09-15 23:21:00 Emergency X GRADY THRASHER [facility] ERT [id number] [facility] 2023-09-15 18:25:00 2023-09-15 23:21:00 Emergency Grayd Thrasher, Chip [facility] 1.2.840.114 350.1.13.10 4.2.7.2.686 [id number] [facility] 2023-07-22 00:00:00 2023-07-22 00:00:00 Outpatient GAYLORD_S DMG DMG [id number] [facility] 2023-04-04 00:00:00 2023-04-04 00:00:00 Outpatient GAYLORD_S DMG DMG [id number] [facility] 2023-04-04 00:00:00 2023-04-04 00:00:00 Outpatient GAYLORD_S DMG DMG [id number] [facility] 2023-03-01 19:00:00 2023-03-01 20:00:00 CAV Treasure Mary 2.16.840. [id number]. [id number] [id number] 2.16.840.1. [id number] [facility] 2023-02-15 00:00:00 2023-02-15 00:00:00 Outpatient GAYLORD_S DMG DMG [id number] [facility] 2023-02-15 00:00:00 2023-02-15 00:00:00 Outpatient GAYLORD_S DMG DMG [id number] [facility] 2022-12-13 00:00:00 2022-12-13 00:00:00 Outpatient Deshazo_T DMG DMG [id number] [facility] 2022-12-13 00:00:00 2022-12-13 00:00:00 Outpatient Deshazo_T DMG DMG [id number] [facility] 2022-11-21 00:00:00 2022-11-21 00:00:00 (TEL) STLMLC STLMLC [id number] [facility] 2022-10-24 00:00:00 2022-10-24 00:00:00 (TEL) STLMLC STLMLC [id number] [facility] 2022-10-22 14:26:00 2022-10-22 14:48:00 Emergency X BERENICE ASHER [facility] ERT [id number] [facility] 2022-10-22 14:26:00 2022-10-22 14:48:00 Emergency Berenice Asher [facility] .2.840.114 350.1.13.10 4.2.7.2.686 [id number] [facility] 2022-10-21 00:00:00 2022-10-21 00:00:[address] [facility] PROFESSIO [place] [id number] 350.1.13.10 4.2.7.2.686 [id number] [facility] 2022-08-22 00:00:00 2022-08-22 00:00:00 (TEL) STLMLC STLMLC [id number] [facility] 2022-06-16 00:00:00 2022-06-16 00:00:00 OFFICE VISIT ESTAB PT LEVEL 4 STLMLC STLMLC [id number] [facility] 2022-04-07 00:00:00 2022-04-07 00:00:00 (TEL) STLMLC STLMLC [id number] [facility] 2022-04-04 00:00:00 2022-04-04 00:00:00 OFFICE VISIT ESTAB PT LEVEL 4 STLMLC STLMLC [id number] [facility] 2022-04-04 00:00:00 2022-04-04 00:00:00 (TEL) STLMLC STLMLC [id number] [facility] 2022-04-04 00:00:00 2022-04-04 00:00:00 SUB ANNUAL [facility] WELLNESS VISIT STLMLC STLMLC [id number] [facility] 2022-03-30 00:00:00 2022-03-30 00:00:00 (TEL) STLMLC STLMLC [id number] [facility] 2022-03-28 00:00:00 2022-03-28 00:00:00 (TEL) STLMLC STLMLC [id number] [facility] 2022-03-25 06:17:00 2022-03-25 06:17:00 Outpatient Deshazo_T DMG [facility] [id number] [facility] 2022-03-04 00:00:00 2022-03-04 00:00:00 (TEL) STLMLC STLMLC [id number] [facility] 2022-03-02 00:00:00 2022-03-02 00:00:00 OFFICE VISIT ESTAB PT LEVEL 4 STLMLC STLMLC [id number] [facility] 2022-02-16 00:00:00 2022-02-16 00:00:00 PREV VISIT EST AGE 40-64 STLMLC STLMLC [id number] [facility] 2022-01-25 00:00:00 2022-01-25 00:00:00 (TEL) STLMLC STLMLC [id number] [facility] 2022-01-19 18:00:00 2022-01-19 19:00:00 CAV Melony Mak 2.16.840. 1.138656. [id number] 2.16.840.1. 128594.4.6. [id number] SHEYLA 8ZF [facility] 2022-01-17 07:28:00 2022-01-17 07:28:00 [place] Des[place] [id number] [facility] 2022-01-05 23:20:00 2022-01-05 23:57:00 Emergency X DAVIDSON TORRES [facility] ERT [id number] [facility] 2022-01-05 23:20:00 2022-01-05 23:57:00 Emergency Davidson Torres [facility] 1..840.114 350.1.13.10 4.2.7.2.686 [id number] [facility] 2022-01-04 00:00:00 2022-01-04 00:00:00 OFFICE VISIT NEW PT LEVEL 4 STLMLC STLMLC [id number] [facility] 2021-12-04 00:00:00 2021-12-04 00:00:00 Refill [facility] 1..840.114 350.1.13.10 4.2.7.2.686 [id number] [facility] 2021-11-30 08:40:00 2021-11-30 08:40:00 Outpatient R [facility] [id number] [facility] 2021-11-30 08:40:00 2021-11-30 08:40:00 Outpatient R CARMEN AKHTAR [facility] [id number] [facility] 2021-09-14 00:00:00 2021-09-14 00:00:00 Refill Carmen Akhtar [facility] .2.840.114 350.1.13.10 4.2.7.2.686 [id number] [facility] 2021-09-10 08:32:00 2021-09-10 08:32:00 [id number] [facility] 2021-09-08 00:00:00 2021-09-08 00:00:00 Telephone Carmen Akhtar [facility] 1.2.840.114 350.1.13.10 4.2.7.2.686 [id number] [facility] 2021-08-18 13:40:00 2021-08-18 13:40:00 Outpatient R CBKRYSTYNAKELLYASHLYREENA [facility] [id number] [facility] 2021-08-18 13:40:00 2021-08-18 13:40:00 Outpatient R REENA ASTORGA [facility] [id number] [facility] 2021-08-02 11:05:37 2021-08-02 12:30:39 Office Visit Carmen Akhtar [facility] 1.2.840.114 350.1.13.10 4.2.7.2.686 [id number] [facility] 2021-08-02 11:00:00 2021-08-02 12:30:39 Outpatient R CARMEN AKHTAR [facility] [id number] [facility] 2021-07-22 00:00:00 2021-07-22 00:00:00 Refill Carmen Akhtar [facility] 1.2.840.114 350.1.13.10 4.2.7.2.686 [id number] [facility] 2021-07-13 00:00:00 2021-07-13 00:00:00 Telephone Carmen Akhtar [facility] 1.2.840.114 350.1.13.10 4.2.7.2.686 [id number] [facility] 2021-07-11 00:00:00 2021-07-11 00:00:00 Refill Carmen Akhtar [facility] 1.2.840.114 350.1.13.10 4.2.7.2.686 [id number] [facility] [facility] 2021-07-07 16:24:40 2021-07-07 16:39:51 Urgent Care [facility], [facility] [id number] 350.1.13.10 4.2.7.2.686 [id number] [facility] 2021-07-07 16:20:00 2021-07-07 16:20:00 Outpatient Carson HEDRICK [facility] [id number] [facility] 2021-07-07 00:00:00 2021-07-07 00:00:00 Refill Carmen Akhtar [facility] 1.2.840.114 350.1.13.10 4.2.7.2.686 [id number] [facility] 2021-07-02 12:01:00 2021-07-02 12:01:00 Outpatient DMG DMG [id number] [place] [address] [facility] 2021-07-02 00:00:00 2021-07-02 00:00:00 Telephone Carmen Akhtar [facility] 1.2.840.114 350.1.13.10 4.2.7.2.686 [id number] [facility] 2021-06-28 00:00:00 2021-06-28 00:00:00 Telephone Carmen Akhtar [facility] 1.2.840.114 350.1.13.10 4.2.7.2.686 [id number] [facility] 2021-06-25 00:00:00 2021-06-25 00:00:00 Telephone Carmen Akhtar [facility] 1.2.840.114 350.1.13.10 4.2.7.2.686 [id number] [facility] 2021-06-09 14:20:00 2021-06-09 14:20:00 Outpatient R RUSLAN POSADAS [facility] [id number] [facility] 2021-06-03 19:30:00 2021-06-03 19:30:00 Outpatient R WILLIAM HERMAN STRAHIL [facility] [id number] [facility] 2021-06-01 15:30:00 2021-06-01 15:30:00 Outpatient R [facility] [id number] [facility] 2021-05-06 10:57:09 2021-05-06 13:00:43 Office Visit Carmen Akhtar [facility] 1.2.840.114 350.1.13.10 4.2.7.2.686 [id number] [facility] 2021-05-06 10:40:00 2021-05-06 10:40:00 Outpatient R CARMEN AKHTAR [facility] [id number] [facility] 2021-04-20 15:00:00 2021-04-20 15:00:00 Outpatient R BENNETT POOLE [facility] [id number] [facility] 2021-04-09 08:20:00 2021-04-09 08:20:00 Outpatient R CARMEN AKHTAR [facility] [id number] [facility] 2021-03-15 15:40:00 2021-03-15 15:40:00 Outpatient R BENNETT POOLE [facility] [id number] [facility] 2021-03-12 19:30:00 2021-03-12 19:30:00 Outpatient R [facility] [id number] [facility] 2021-03-04 09:00:00 2021-03-04 09:00:00 Outpatient TON HENDRICKS [facility] [id number] [facility] 2020-12-06 11:40:00 2020-12-06 11:40:00 Outpatient [facility] [id number] [facility] 2020-11-08 11:05:00 2020-11-08 11:05:00 Outpatient SHELBY MAI [facility] [id number] [facility] Results Test Description Test Time Test Comments Results Result Co mments Source [facility] [id number] 12:39:50AlPatrick Nation MD ? ? 02/29/2024 ?7:40 AM Nerve Block Nerve Block Procedure List: AXILLARY APPROACH TOBRACHIAL PLEXUS. Patient Location: HoldingLaterality: LeftSurgical Anesthesia: Post Op Pain: Start Time: 02/29/2024 7:20 AMEnd Time: 02/29/2024 7:40 AMPost Op Pain Management requested bysurgeon per surgical: Progress NoteAnesthesiologist: Patrick Whyte MDPerformed by: walter sthesiologistPreanesthetic timeout completed prior to procedure: patient identified,IV checked, site marked, risks and benefits discussed, surgical consent, monitors and equipment checked, pre-op evaluation, timeout performedPatient Position: supineMonitoring: continuous pulse ox, blood pressure and ECGInjection Technique: single-shotNeedle Gauge: 22 GNeedle Length: 4.0Number of Attempts: 1Technique: Negative aspiration and Intermittent aspiration during injectionEvents: Patient tolerated procedure well, Negative Aspiration and No paresthesia on incremental injection Medications Given: Regional:Bupiv 0.5% 20 mLLido 2% 10 mLEPI 1:200K Sedation[facility]2024-02-29 12:05:23* Test Item Value Reference Range Interpretation Comme nts POCT GLU (test code = 6397036745) 122 mg/dL 70-110 H Lab Interpretation (test cod e = 31678-0) Abnormal [facility] GLUCOSE (AUTOMATED)2024-02-29 12:05:23* Test Item Value Reference Range Interpretation Comme nts POCT GLU (test code = 7434174469) 122 mg/dL 70-110 H Lab Interpretation (test cod e = 70638-3) Abnormal [facility] Screen - This is a pre-surgical type and screen. ONCE [id number] 12:03:00* Test Item Value Reference Range Interpretation Comme nts ABO & RH (test code = 20) A NEGATIVE IAT (test code = 1185) Negative [facility] - This is a pre-surgical type and screen. ONCE [id number] 12:03:00* Test Item Value Reference Range Interpretation Comme nts ABO & RH (test code = 20) A NEGATIVE IAT (test code = 1185) Negative [facility] CHEST 1 [id number] 16:37:52ORDERING PHYSICIAN: MICHELLE MOSCOSO. HISTORY: confirm CVC placement PACU CXR TECHNIQUE: AP COMPARISON: None. FINDINGS: Lungs: ?A right IJ line terminates at the cavoatrial junction. Diffuseconfluent ground glass opacity and prominence of interstitial markings isnoted. Pleura: ?No effusion or pleural disease is seen. ?No pneumothorax. Mediastinum/Clementine: ?No masses or adenopathy. Heart: ?The heart is not enlarged. Other: ?No acute osseous abnormality is seen.[facility] CHEST 1 [id number] 16:37:52ORDERING PHYSICIAN: MICHELLE MOSCOSO. HISTORY: confirm CVC placement PACU CXR TECHNIQUE: AP COMPARISON: None. FINDINGS: Lungs: ?A right IJ line terminates at the cavoatrial junction. Diffuseconfluent ground glass opacity and prominence of interstitial markings isnoted. Pleura: ?No effusion or pleural disease is seen. ?No pneumothorax. Mediastinum/Clementine: ?No masses or adenopathy. Heart: ?The heart is not enlarged. Other: ?No acute osseous abnormality is seen.[facility] FL TIME OR (NON-REPORTABLE)2024-02-02 16:08:10These images do not require a Radiology diagnostic report.[facility] (NON-REPORTABLE)2024-02-02 16:08:10These images do not require a Radiology diagnostic report.[facility] Acute Care Venous 2024-02-02 14:34:33* Test Item Value Reference Range Interpretation Comme nts PH (test code = 5090254172) 7.24 7.32-7.42 L PCO2 MISAEL (test code = 0235121229) 37 41-51 L PO2 MISAEL (test code = 4409654119) 41 25-40 H AC VBE(BEAKER) (test code = 8561323521) -12.0 -3.0-3.0 HCO3 MISAEL (test code = 5993287120) 16 24-28 L %O2HB (test code = 1610486897) 68.0 % 95.0-98.0 L NA (test code = 3614637881) 140 mmol/L 135-145 K+ (test code = 5544248225) 4.1 mmol/L 3.5-5.0 AC CA IONZ (test code = 1129234606) 4.40 mg/dL 4.50-5.30 L GLUCOSE (test code = 4880417439) 109 mg/dL 70-110 AC Hematocrit (test code = 2391667338) 22 40-54 LL THB (test code = 8655500027) 7.5 g/dL 13.5-18.0 LL AC TCO2 MISAEL (test code = 1603452340) 17 mmol/L See_Comment L [Automated messa ge] The system which generated this result transmitted reference range: 24-29 mmol/L. The reference range was not used to interpret this result as normal/abnormal. Lab Interpretation (test code = 84099-0) Abnormal [facility] [id number] 14:34:33* Test Item Value Reference Range Interpretation Comme nts PH (test code = 4098186070) 7.24 7.32-7.42 L PCO2 MISAEL (test code = 8028905417) 37 41-51 L PO2 MISAEL (test code = 7039844946) 41 25-40 H AC VBE(BEAKER) (test code = 3310209154) -12.0 -3.0-3.0 HCO3 MISAEL (test code = 6441724143) 16 24-28 L %O2HB (test code = 0254444212) 68.0 % 95.0-98.0 L NA (test code = 7032206244) 140 mmol/L 135-145 K+ (test code = 2490057790) 4.1 mmol/L 3.5-5.0 AC CA IONZ (test code = 7057036293) 4.40 mg/dL 4.50-5.30 L GLUCOSE (test code = 4917464792) 109 mg/dL 70-110 AC Hematocrit (test code = 1035940465) 22 40-54 LL THB (test code = 5521189462) 7.5 g/dL 13.5-18.0 LL AC TCO2 MISAEL (test code = 3284729755) 17 mmol/L See_Comment L [Automated Hubkicka ge] The system which generated this result transmitted reference range: 24-29 mmol/L. The reference range was not used to interpret this result as normal/abnormal. Lab Interpretation (test code = 78345-6) Abnormal [facility] Screen - ONCE [id number] 14:25:00* Test Item Value Reference Range Interpretation Comme nts ABO & RH (test code = 20) A NEGATIVE IAT (test code = 1185) Negative [facility] and Screen - ONCE [id number] 14:25:00* Test Item Value Reference Range Interpretation Comme nts ABO & RH (test code = 20) A NEGATIVE IAT (test code = 1185) Negative [facility] Metabolic Panel (NA, K, CL, CO2, GLUCOSE, BUN, CREATININE, CA)2024-02-02 14:17:45* Test Item Value Reference Range Interpretation Comme nts NA (test code = 7570184064) 138 mmol/L 135-145 K (test code = 5826352347) 4.3 mmol/L 3.5-5.0 CL (test code = 2008851336) 110 mmol/L 98-108 H CO2 TOTAL (test code = 0092490931) 17 mmol/L 23-31 L AGAP (test code = 6626614314) 11 2-16 BUN (test code = 5122878387) 88 mg/dL 7-23 H GLUCOSE (test code = 6052890709) 111 mg/dL 70-110 H CREATININE (test code = 2160-0) 11.26 mg/dL 0.60-1.25 H CALCIUM (test code = 4302393909) 7.3 mg/dL 8.6-10.6 L eGFR (test code = 99986-1) 4.9 mL/min/1.73m2 CKD-EPI eGFR (2020). Assuming creatinine has been stable day-to-day for at least three months, the eGFR indicates Category G5 (<= 14mL/min/1.73 m2) Lab Interpretation (test code = 06697-7) Abnormal [facility] Metabolic Panel (NA, K, CL, CO2, GLUCOSE, BUN, CREATININE, CA)2024-02-02 14:17:45* Test Item Value Reference Range Interpretation Comme [facility] NA (test code = 5213756531) 138 mmol/L 135-145 K (test code = 9053832823) 4.3 mmol/L 3.5-5.0 CL (test code = 7142180730) 110 mmol/L 98-108 H CO2 TOTAL (test code = 3736297649) 17 mmol/L 23-31 L AGAP (test code = 2337147858) 11 2-16 BUN (test code = 7415720537) 88 mg/dL 7-23 H GLUCOSE (test code = 4600047450) 111 mg/dL 70-110 H CREATININE (test code = 2160-0) 11.26 mg/dL 0.60-1.25 H CALCIUM (test code = 6280181396) 7.3 mg/dL 8.6-10.6 L eGFR (test code = 07407-7) 4.9 mL/min/1.73m2 CKD-EPI eGFR (2020). Assuming creatinine has been stable day-to-day for at least three months, the eGFR indicates Category G5 (<= 14mL/min/1.73 m2) Lab Interpretation (test code = 18947-6) Abnormal [facility] GLUCOSE (AUTOMATED)2024-02-02 13:35:23* Test Item Value Reference Range Interpretation Comme [facility] POCT GLU (test code = 4999945191) 127 mg/dL 70-110 H Lab Interpretation (test cod e = 26392-9) Abnormal [facility] GLUCOSE (AUTOMATED)2024-02-02 13:35:23* Test Item Value Reference Range Interpretation Comme [facility] POCT GLU (test code = 6587372992) 127 mg/dL 70-110 H Lab Interpretation (test cod e = 22488-4) [facility]normal [facility] 1 [id number] 01:53:52ORDERING PHYSICIAN: GRADY THRASHER CLINICAL HISTORY:shortness of breath TECHNIQUE:AP chest radiograph. COMPARISON:None. FINDINGS:No focal pulmonary consolidation, pleural effusion or pneumothorax. Heartsize within normal limits. Visualized bones are unremarkable.[facility] TexasTroponin [id number] 01:52:31* Test Item Value Reference Range Interpretation Comme nts TROPONIN I (test code = 8008509385) 0.028 ng/mL <=0.034 ALESIA (test code = [...] of biotin. Lab Interpretation (test code = 30623-7) Normal [facility]-Terminal [id number]-[id number] 01:50:09* Test Item Value Reference Range Interpretation Comme nts NT-proBNP (test code = 84898-2) 8290 pg/mL <=125 H ALESIA (test code = ALESIA) Positive: Heart Failure Likely Lab Interpretation (test code = 34552-7) Abnormal [facility]. Metabolic Panel (09037)2023-09-16 01:41:29* Test Item Value Reference Range Interpretation Comme nts NA (test code = 6630582312) 138 mmol/L 135-145 K (test code = 8450076238) 4.5 mmol/L 3.5-5.0 CL (test code = 1334602218) 107 mmol/L 98-108 CO2 TOTAL (test code = 4350064228) 14 mmol/L 23-31 L AGAP (test code = 7297641466) 17 2-16 H BUN (test code = 4519694153) 59 mg/dL 7-23 H GLUCOSE (test code = 5973494355) 134 mg/dL 70-110 H CREATININE (test code = 5104268056) 7.17 mg/dL 0.60-1.25 H TOTAL BILI (test code = 0367125776) 0.6 mg/dL 0.1-1.1 CALCIUM (test code = 4989438055) 9.2 mg/dL 8.6-10.6 T PROTEIN (test code = 4898887865) 8.4 g/dL 6.3-8.2 H ALBUMIN (test code = 8377241236) 4.2 g/dL 3.5-5.0 ALK PHOS (test code = 4203371349) 86 U/L 34-122 ALTv (test code = 1742-6) 13 U/L 5-50 AST(SGOT) (test code = 0685899578) 20 U/L 13-40 eGFR (test code = 09935-7) 8.5 mL/min/1.73m2 CKD-EPI eGFR (2020). Assuming creatinine has been stable day-to-day for at least three months, the eGFR indicates Category G5 (<= 14mL/min/1.73 m2) Lab Interpretation (test code = 37430-2) Abnormal [facility] with [id number] 01:03:42* Test Item Value Reference Range Interpretation Comme nts WBC (test code = 6690-2) 5.92 See_Comment [Automated Hubkicka 365net] The system which generated this result transmitted reference range: 4.20 - 10.70 10*3/?L. The reference range was not used to interpret this result as normal/abnormal. RBC (test code = 789-8) 4.05 See_Comment L [Automated Hubkicka ge] The system which generated this result [...] 33.3 g/dL 31.2-35.0 RDW-SD (test code = 90618-5) 37.3 fL 38.5-51.6 L RDW-CV (test code = 788-0) 12.5 % 12.1-15.4 PLT (test code = 777-3) 244 See_Comment [Automated messa ge] The system which generated this result transmitted reference range: 150 - 328 10*3/?L. The reference range was not used to interpret this result as normal/abnormal. MPV (test code = 18147-2) 10.5 fL 9.8-13.0 NRBC/100 WBC (test code = 9416814184) 0.0 See_Comment [Automated Ludia ssage] The system which generated this result transmitted reference range: 0.0 - 10.0 /100 WBCs. The reference range was not used to interpret this result as normal/abnormal. NRBC x10^3 (test code = 0745021551) See_Comment [Automated Hubkicka ge] The system which generated this result transmitted reference range: 10*3/?L. The reference range was not used to interpret this result as normal/abnormal. GRAN MAT (NEUT) % (test code = 770-8) 67.7 % IMM GRAN % (test code = 1725041998) 0.20 % LYMPH % (test code = 736-9) 21.6 % MONO % (test code = 5905-5) 8.3 % EOS % (test code = 713-8) 1.5 % BASO % (test code = 706-2) 0.7 % GRAN MAT x10^3(ANC) (test code = 8977088636) 4.01 10*3/uL 1.99-6.95 IMM GRAN x10^3 (test code = 9991819651) 0.00-0.06 LYMPH x10^3 (test code = 731-0) 1.28 10*3/uL 1.09-3.23 MONO x10^3 (test code = 742-7) 0.49 10*3/uL 0.36-1.02 EOS x10^3 (test code = 711-2) 0.09 10*3/uL 0.06-0.53 BASO x10^3 (test code = 704-7) 0.04 10*3/uL 0.01-0.09 Lab Interpretation (test code = 25578-7) Abnormal [facility] Texas[facility]ahiic Acid Whole [id number] 00:55:02* Test Item Value Reference Range Interpretation Comme [facility] LACTIC ACID (test code = 4585770821) 1.40 mmol/L 0.50-2.20 Lab Interpretation (test cod e = 46450-3) Normal [facility] GLUCOSE (AUTOMATED)2023-09-16 00:53:36* Test Item Value Reference Range Interpretation Comme [facility] POCT GLU (test code = 0022318712) 131 mg/dL 70-110 H Lab Interpretation (test cod e = 09246-7) Abnormal [facility]MOGLOBIN [id number] 00:00:00* Test Item Value Reference Range Interpretation Comme [facility] A1C (test code = 4548-4) 8.2 HEMOGLOBIN [id number] 00:00:00* Test Item Value Reference Range Interpretation Comme [facility] A1C (test code = 4548-4) 8.7 Lipid Panel w/ Chol/HDL [id number] 00:00:00* Test Item Value Reference Range Interpretation Comme [facility] Cholesterol, Total (test code = 2093-3) 143 mg/dL See_Comment [Automated message] The system which generated this result transmitted reference range: 100-199 mg/dL. The reference range was not used to interpret this result as normal/abnormal. Triglycerides (test code = 2571-8) 152 mg/dL See_Comment H [Automated Justyle] The system which generated this result transmitted reference range: 0-149 mg/dL. The reference range was not used to interpret this result as normal/abnormal. HDL Cholesterol (test code = 2085-9) 32 mg/dL See_Comment L [Automated Hubkick[employer]] The system which generated this result transmitted reference range: >39 mg/dL. The reference range was not used to interpret this result as normal/abnormal. T. Chol/HDL Ratio (test code = 9830-1) 4.5 ratio See_Comment [Automated [employer]] The system which generated this result transmitted reference range: 0.0-5.0 ratio. The reference range was not used to interpret this result as normal/abnormal. Microalbumin/Creat Ratio, Random [id number] 00:00:00* Test Item Value Reference Range Interpretation Comme nts Creatinine, Urine (test code = 2161-8) 147.5 mg/dL Not Estab. mg/dL Albumin, Urine (test code = 29424-1) 4494.6 ug/mL Not Estab. ug/mL Alb/Creat Ratio (test code = 72774-3) 3047 mg/g creat See_Comment H [Automated Hubkick[employer]] The system which generated this result transmitted reference range: 0-29 mg/g creat. The reference range was not used to interpret this result as normal/abnormal. COMP. METABOLIC PANEL (55782)2022-01-06 04:54:06* Test Item Value Reference Range Interpretation Comme nts NA (test code = 5892536081) 138 mmol/L 135-145 K (test code = 3082067441) 4.5 mmol/L 3.5-5.0 CL (test code = 7413193647) 103 mmol/L 98-108 CO2 TOTAL (test code = 0537547067) 26 mmol/L 23-31 AGAP (test code = 2668482178) 2-16 BUN (test code = 1016939592) 33 mg/dL 7-23 H GLUCOSE (test code = 8482178635) 236 mg/dL 70-110 H CREATININE (test code = 5371619349) 1.95 mg/dL 0.60-1.25 H TOTAL BILI (test code = 2913976848) 0.4 mg/dL 0.1-1.1 CALCIUM (test code = 3216542333) 8.7 mg/dL 8.6-10.6 T PROTEIN (test code = 7823367530) 6.9 g/dL 6.3-8.2 ALBUMIN (test code = 4117430414) 3.7 g/dL 3.5-5.0 ALK PHOS (test code = 9370574895) 61 U/L 34-122 ALTv (test code = 1742-6) 28 U/L 5-50 AST(SGOT) (test code = 6700418782) 30 U/L 13-40 eGFR (test code = 5832829284) mL/min/1.73m2 ALESIA (test code = ALESIA) Association [...] imaging tests). Lab Interpretation (test code = 83223-4) Abnormal [facility] WITH [id number] 04:42:08* Test Item Value Reference Range Interpretation Comme nts WBC (test code = 6690-2) See_Comment [Automated Justyle] The system which generated this result transmitted reference range: 4.20 - 10.70 10*3/?L. The reference range was not used to interpret this result as normal/abnormal. RBC (test code = 789-8) See_Comment [Automated Justyle] The system which generated this result transmitted [...] 32.8 g/dL 31.2-35.0 RDW-SD (test code = 77262-0) 37.2 fL 38.5-51.6 L RDW-CV (test code = 788-0) 12.4 % 12.1-15.4 PLT (test code = 777-3) See_Comment [Automated messa ge] The system which generated this result transmitted reference range: 150 - 328 10*3/?L. The reference range was not used to interpret this result as normal/abnormal. MPV (test code = 47301-1) 10.3 fL 9.8-13.0 NRBC/100 WBC (test code = 7890473152) See_Comment [Automated Ludia ssage] The system which generated this result transmitted reference range: 0.0 - 10.0 /100 WBCs. The reference range was not used to interpret this result as normal/abnormal. NRBC x10^3 (test code = 2023896047) <0.01 See_Comment [Automated Hubkicka ge] The system which generated this result transmitted reference range: 10*3/?L. The reference range was not used to interpret this result as normal/abnormal. GRAN MAT (NEUT) % (test code = 770-8) 64.6 % IMM GRAN % (test code = 7861067999) 0.30 % LYMPH % (test code = 736-9) 22.8 % MONO % (test code = 5905-5) 8.0 % EOS % (test code = 713-8) 3.6 % BASO % (test code = 706-2) 0.7 % GRAN MAT x10^3(ANC) (test code = 7400126235) 4.82 10*3/uL 1.99-6.95 IMM GRAN x10^3 (test code = 6975084959) <0.03 0.00-0.06 LYMPH x10^3 (test code = 731-0) 1.70 10*3/uL 1.09-3.23 MONO x10^3 (test code = 742-7) 0.60 10*3/uL 0.36-1.02 EOS x10^3 (test code = 711-2) 0.27 10*3/uL 0.06-0.53 BASO x10^3 (test code = 704-7) 0.05 10*3/uL 0.01-0.09 Lab Interpretation (test code = 88245-6) Abnormal [facility] History and Physical Notes Date/Time Note Provider Source 2024-02-29 06:39:38 Patient seen and examined in preop holding. No interval changes in his health since his clinic appt on 02/15/24. Patient reports feeling well today. Plan for left upper extremity AVF creation for ESRD. Informed written consent obtained. All questions answered Laron Ramírez MD General Surgery PGY 3 02/29/2024 Associated attestation - Andrei Yanes MD - 02/29/2024 7:01 AM CDT I personally examined the patient on 02/29/2024 and agree with Carlos Ramírez MD resident note as written . I actively participated in the decision-making process. Please see the resident's note for additional details. Andrei Yanes MD, RPVI, FSVS Vascular Surgery PGY17 Source Note - Andrei Yanes MD - 02/15/2024 1:45 PM CDT Vascular Surgery Clinic Note Date of Service: 02/15/2024 HISTORY OF PRESENT ILLNESS: 53 year old male with longstanding history of chronic kidney disease who has now been declared end-stage renal and started on hemodialysis via a tunneled hemodialysis catheter just about a week and a half ago. He is dialyzed Monday. He is right-handed. No prior surgeries to the left upper extremity. He does note some chronic paresthesias with numbness to his left digits. He also has a difficult time with abduction of his fifth left digit towards the fourth digit. He is now referred to the clinic today for fistula creation. PAST MEDICAL HISTORY: Past Medical History: Diagnosis Date Depression Diabetes mellitus Diabetic retinopathy ED (erectile dysfunction) Hyperlipidemia Hypertension Legally blind Past Surgical History: Procedure Laterality Date DIRECT LARYNGOSCOPY N/A 01/08/2018 Surgeon: Petey Looney MD; Location: [facility] EYE SURGERY INCISION AND DRAINAGE OF ABSCESS Left 01/10/2018 Surgeon: Nitish Bajwa MD; Location: [facility] TUNNELED CATHETER (SHX) 02/02/2024 RT IJ tunneled HD catheter Medications: Home Medications: Current Outpatient Medications on File Prior to Visit Medication Sig Dispense Refill HYDROcodone-acetaminophen 5-325 mg tablet Take 1 tablet by mouth. methocarbamoL 500 mg tablet Take 2 tablets by mouth 4 (four) times daily. As needed amLODIPine 10 mg tablet Take 1 tablet by mouth in the morning. atenoloL 25 mg tablet Take 1 tablet by mouth at bedtime. calcium acetate,phosphat bind, 667 mg capsule Take 1 capsule by mouth in the morning and 1 capsule at noon and 1 capsule in the evening. Take with meals. fluticasone propionate 50 mcg/actuation nasal spray Use 1 Powell in each nostril. sodium bicarbonate 650 mg tablet TAKE 1 TABLET BY MOUTH IN THE MORNING AND 1 AT NOON AND 1 IN THE EVENING WITH MEALS traZODone 50 mg tablet Take 1 tablet by mouth as needed. sildenafiL (VIAGRA) 100 mg tablet Take 1 tablet by mouth daily. 12 tablet 1 lisinopriL-hydrochlorothiazide 20-25 mg per tablet Take 1 tablet by mouth daily. 90 tablet 3 ergocalciferol, vitamin d2, (VITAMIN D2) 1,250 mcg (50,000 unit) capsule Take 1 capsule by mouth weekly. 12 capsule 1 atorvastatin 20 mg tablet Take 1 tablet by mouth at bedtime. bimatoprost (LUMIGAN) 0.01 % ophthalmic drops Place 1 Drop in each eye in the morning. prednisoLONE acetate 1 % ophthalmic suspension drops Place 1 Drop in both eyes in the morning. bumetanide 2 mg tablet Take 1 tablet by mouth ONCE PRN (Lower extremity swelling). latanoprost 0.005 % ophthalmic drops Place 1 Drop in both eyes every evening. lancets (FREESTYLE LANCETS) 28 gauge [facility] USE ONE LANCET TO CHECK BLOOD GLUCOSE 2 TO 3 TIMES A DAY 100 Each 0 blood sugar diagnostic strip Check sugars 2-3 times a day. Dx Code E11.9. Brand per insurance. Patient has uncontrolled diabetes and needs to check sugars at least 2 times a day. ACCU-CHEK- same brand as meter 100 Strip 11 Blood-Glucose Meter Kit Check sugars 2-3 times a day. Dx Code E11.9. Brand per insurance. Patient has uncontrolled diabetes and needs to check sugars at least 2 times a day. ACCU-CHEK 1 Kit 0 metformin ER 500 mg 24 hr tablet Take 2 tablets by mouth 2 (two) times daily. 360 tablet 3 No current facility-administered medications on file prior to visit. Social History Socioeconomic History Marital status: Spouse name: Zohra Number of children: 5 Highest education level: 8th grade Occupational History Occupation: Disabled Tobacco Use Smoking status: Some Days Current packs/day: 1.00 Average packs/day: 1 pack/day for 5.0 years (5.0 ttl pk-yrs) Types: Cigarettes Smokeless tobacco: Never Substance and Sexual Activity Alcohol use: Yes Alcohol/week: 12.0 standard drinks of alcohol Types: 12 Cans of beer per week Comment: was drinking daily, now a couple days a week Drug use: Yes Types: Marijuana, Cocaine Comment: smoked majuriuana and did cocaine in 20s but not anymore Family History Problem Relation Age of Onset Diabetes Mother Hypertension Mother Stroke Mother Diabetes Maternal Grandmother Hypertension Maternal Grandmother Diabetes Maternal Aunt Hypertension Maternal Aunt Diabetes Maternal Uncle Hypertension Maternal Uncle Alcohol/Drug Father Allergies: No Known Allergies Make sure patient is not allergic to Contrast (Iodine): No Review of Systems: Patient denies any chest pain or shortness of breath. He denies any orthopnea or dyspnea. Physical Exam: BP (!) 154/88 | Pulse 89 | Temp 36.6 ?C (97.8 ?F) | Resp 18 | Ht 1.727 m (5' 8") | Wt 70.8 kg (156 lb) | SpO2 97% | BMI 23.72 kg/m? No acute distress. Alert oriented and cooperative Neck is supple. No JVD is noted Right IJ tunneled hemodialysis catheter is clean dry and intact Chest is clear to auscultation bilaterally Heart regular rate and rhythm Left upper extremity with positive palpable brachial and radial pulses. Motor function to the left hand is intact other than ability to abduct the fifth digit towards the fourth digit when the hand is outstretched Labs: CBC BMP LIPID PANEL WBC (10*3/?L) Date Value 02/02/2024 4.60 NA (mmol/L) Date Value 02/02/2024 138 CHOL (mg/dL) Date Value 03/04/2021 139 MCV (fL) Date Value 02/02/2024 86.0 K (mmol/L) Date Value 02/02/2024 4.3 LDL CHOL (mg/dL) Date Value 03/04/2021 86 PLT (10*3/?L) Date Value 02/02/2024 169 CL (mmol/L) Date Value 02/02/2024 110 (H) HDL (mg/dL) Date Value 03/04/2021 33 (L) HGB (g/dL) Date Value 02/02/2024 7.5 (L) CO2 TOTAL (mmol/L) Date Value 02/02/2024 17 (L) AC TCO2 MISAEL (mmol/L) Date Value 02/02/2024 17 (L) TRIG (mg/dL) Date Value 03/04/2021 102 HCT (%) Date Value 02/02/2024 23.9 (L) BUN (mg/dL) Date Value 02/02/2024 88 (H) aPTT CREATININE (mg/dL) Date Value 02/02/2024 11.26 (H) APTT Patient (Seconds) Date Value 12/15/2020 27 TYPE AND SCREEN GLUCOSE (mg/dL) Date Value 02/02/2024 111 (H) PT/INR No results found for: "TSABINT" CALCIUM (mg/dL) Date Value 02/02/2024 7.3 (L) No results found for: "PT" INR (no units) Date Value 12/15/2020 1.0 Diagnosis: End-stage renal disease Assessment/Plan Problem #1 -will schedule for left upper extremity arteriovenous fistula creation. Risk benefits alternatives were discussed and he agrees to proceed. Patient did have a cardiac evaluation done recently. He does have thoracic echocardiogram pending however does not need further coronary intervention at this time and is considered low risk for perioperative cardiac complications. [facility] 2024-02-15 13:45:00 Vascular Surgery Clinic Note Date of Service: 02/15/2024 HISTORY OF PRESENT ILLNESS: 53 year old male with longstanding history of chronic kidney disease who has now been declared end-stage renal and started on hemodialysis via a tunneled hemodialysis catheter just about a week and a half ago. He is dialyzed Monday. He is right-handed. No prior surgeries to the left upper extremity. He does note some chronic paresthesias with numbness to his left digits. He also has a difficult time with abduction of his fifth left digit towards the fourth digit. He is now referred to the clinic today for fistula creation. PAST MEDICAL HISTORY: Past Medical History: Diagnosis Date Depression Diabetes mellitus Diabetic retinopathy ED (erectile dysfunction) Hyperlipidemia Hypertension Legally blind Past Surgical History: Procedure Laterality Date DIRECT LARYNGOSCOPY N/A 01/08/2018 Surgeon: Petey Looney MD; Location: [facility] EYE SURGERY INCISION AND DRAINAGE OF ABSCESS Left 01/10/2018 Surgeon: Nitish Bajwa MD; Location: [facility] Location TUNNELED CATHETER (SHX) 02/02/2024 RT IJ tunneled HD catheter Medications: Home Medications: Current Outpatient Medications on File Prior to Visit Medication Sig Dispense Refill HYDROcodone-acetaminophen 5-325 mg tablet Take 1 tablet by mouth. methocarbamoL 500 mg tablet Take 2 tablets by mouth 4 (four) times daily. As needed amLODIPine 10 mg tablet Take 1 tablet by mouth in the morning. atenoloL 25 mg tablet Take 1 tablet by mouth at bedtime. calcium acetate,phosphat bind, 667 mg capsule Take 1 capsule by mouth in the morning and 1 capsule at noon and 1 capsule in the evening. Take with meals. fluticasone propionate 50 mcg/actuation nasal spray Use 1 Powell in each nostril. sodium bicarbonate 650 mg tablet TAKE 1 TABLET BY MOUTH IN THE MORNING AND 1 AT NOON AND 1 IN THE EVENING WITH MEALS traZODone 50 mg tablet Take 1 tablet by mouth as needed. sildenafiL (VIAGRA) 100 mg tablet Take 1 tablet by mouth daily. 12 tablet 1 lisinopriL-hydrochlorothiazide 20-25 mg per tablet Take 1 tablet by mouth daily. 90 tablet 3 ergocalciferol, vitamin d2, (VITAMIN D2) 1,250 mcg (50,000 unit) capsule Take 1 capsule by mouth weekly. 12 capsule 1 atorvastatin 20 mg tablet Take 1 tablet by mouth at bedtime. bimatoprost (LUMIGAN) 0.01 % ophthalmic drops Place 1 Drop in each eye in the morning. prednisoLONE acetate 1 % ophthalmic suspension drops Place 1 Drop in both eyes in the morning. bumetanide 2 mg tablet Take 1 tablet by mouth ONCE PRN (Lower extremity swelling). latanoprost 0.005 % ophthalmic drops Place 1 Drop in both eyes every evening. lancets (FREESTYLE LANCETS) 28 gauge [facility] [place] USE ONE LANCET TO CHECK BLOOD GLUCOSE 2 TO 3 TIMES A DAY 100 Each 0 blood sugar diagnostic strip Check sugars 2-3 times a day. Dx Code E11.9. Brand per insurance. Patient has uncontrolled diabetes and needs to check sugars at least 2 times a day. ACCU-CHEK- same brand as meter 100 Strip 11 Blood-Glucose Meter Kit Check sugars 2-3 times a day. Dx Code E11.9. Brand per insurance. Patient has uncontrolled diabetes and needs to check sugars at least 2 times a day. ACCU-CHEK 1 Kit 0 metformin ER 500 mg 24 hr tablet Take 2 tablets by mouth 2 (two) times daily. 360 tablet 3 No current facility-administered medications on file prior to visit. Social History Socioeconomic History Marital status: Spouse name: Zohra Number of children: 5 Highest education level: 8th grade Occupational History Occupation: Disabled Tobacco Use Smoking status: Some Days Current packs/day: 1.00 Average packs/day: 1 pack/day for 5.0 years (5.0 ttl pk-yrs) Types: Cigarettes Smokeless tobacco: Never Substance and Sexual Activity Alcohol use: Yes Alcohol/week: 12.0 standard drinks of alcohol Types: 12 Cans of beer per week Comment: was drinking daily, now a couple days a week Drug use: Yes Types: Marijuana, Cocaine Comment: smoked majuriuana and did cocaine in 20s but not anymore Family History Problem Relation Age of Onset Diabetes Mother Hypertension Mother Stroke Mother Diabetes Maternal Grandmother Hypertension Maternal Grandmother Diabetes Maternal Aunt Hypertension Maternal Aunt Diabetes Maternal Uncle Hypertension Maternal Uncle Alcohol/Drug Father Allergies: No Known Allergies Make sure patient is not allergic to Contrast (Iodine): No Review of Systems: Patient denies any chest pain or shortness of breath. He denies any orthopnea or dyspnea. Physical Exam: BP (!) 154/88 | Pulse 89 | Temp 36.6 ?C (97.8 ?F) | Resp 18 | Ht 1.727 m (5' 8") | Wt 70.8 kg (156 lb) | SpO2 97% | BMI 23.72 kg/m? No acute distress. Alert oriented and cooperative Neck is supple. No JVD is noted Right IJ tunneled hemodialysis catheter is clean dry and intact Chest is clear to auscultation bilaterally Heart regular rate and rhythm Left upper extremity with positive palpable brachial and radial pulses. Motor function to the left hand is intact other than ability to abduct the fifth digit towards the fourth digit when the hand is outstretched Labs: CBC BMP LIPID PANEL WBC (10*3/?L) Date Value 02/02/2024 4.60 NA (mmol/L) Date Value 02/02/2024 138 CHOL (mg/dL) Date Value 03/04/2021 139 MCV (fL) Date Value 02/02/2024 86.0 K (mmol/L) Date Value 02/02/2024 4.3 LDL CHOL (mg/dL) Date Value 03/04/2021 86 PLT (10*3/?L) Date Value 02/02/2024 169 CL (mmol/L) Date Value 02/02/2024 110 (H) HDL (mg/dL) Date Value 03/04/2021 33 (L) HGB (g/dL) Date Value 02/02/2024 7.5 (L) CO2 TOTAL (mmol/L) Date Value 02/02/2024 17 (L) AC TCO2 MISAEL (mmol/L) Date Value 02/02/2024 17 (L) TRIG (mg/dL) Date Value 03/04/2021 102 HCT (%) Date Value 02/02/2024 23.9 (L) BUN (mg/dL) Date Value 02/02/2024 88 (H) aPTT CREATININE (mg/dL) Date Value 02/02/2024 11.26 (H) APTT Patient (Seconds) Date Value 12/15/2020 27 TYPE AND SCREEN GLUCOSE (mg/dL) Date Value 02/02/2024 111 (H) PT/INR No results found for: "TSABINT" CALCIUM (mg/dL) Date Value 02/02/2024 7.3 (L) No results found for: "PT" INR (no units) Date Value 12/15/2020 1.0 Diagnosis: End-stage renal disease Assessment/Plan Problem #1 -will schedule for left upper extremity arteriovenous fistula creation. Risk benefits alternatives were discussed and he agrees to proceed. Patient did have a cardiac evaluation done recently. He does have thoracic echocardiogram pending however does not need further coronary intervention at this time and is considered low risk for perioperative cardiac complications. [facility] - Health 2024-02-02 08:12:56 Surgery H&P Update 02/02/2024 8:13 AM Jeevan Ordaz Jr. is a 53 year [...] obtained. See full H&P note below for review. Denisse Cabrera MD [facility] General Surgery 02/02/2024 8:13 AM Associated attestation - Michelle Moscoso MD - 02/02/2024 9:22 AM CDT Attending Attestation: I personally evaluated and examined the patient on 02/02/[address] Cabrera's interval note as written. I actively participated in the decision-making process. Please see the resident's note for additional details. No interval changes, consent is signed and in chart, proceed with tunneled HD catheter placement. Michelle Moscoso M.D. 02/02/2024 09:21 Source Note - Michelle Moscoso MD - 01/22/2024 1:00 PM CDT GENERAL SURGERY CLINIC NOTE Reason for Visit / Chief Complaint: Tunneled HD catheter History of Present Illness: Jeevan Ordaz Jr. is [...] he has not had any additional neck surgery. Past Medical History: Past Medical History: Diagnosis Date Depression Diabetes mellitus Diabetic retinopathy ED (erectile dysfunction) Hyperlipidemia Hypertension Legally blind Past Surgical History: Past Surgical History: Procedure Laterality Date DIRECT LARYNGOSCOPY N/A 01/08/2018 Surgeon: Petey Looney MD; Location: [facility] OR Location EYE SURGERY INCISION AND DRAINAGE OF ABSCESS Left 01/10/2018 Surgeon: Nitish Bajwa MD; Location: [facility] OR Location Allergies: No Known Allergies Medications: Patient's Medications START taking these medications No medications on file CONTINUE taking these medications which have NOT CHANGED AMLODIPINE 10 MG TABLET Take 1 tablet by mouth in the morning. ATENOLOL 25 MG TABLET Take 1 tablet by mouth at bedtime. ATORVASTATIN 20 MG TABLET Take 20 mg by mouth at bedtime. BIMATOPROST (LUMIGAN) 0.01 % OPHTHALMIC DROPS Place 1 Drop in each eye in the morning. BLOOD SUGAR DIAGNOSTIC STRIP Check sugars 2-3 times a day. Dx Code E11.9. Brand per insurance. Patient has uncontrolled diabetes and needs to check sugars at least 2 times a day. ACCU-CHEK- same brand as meter BLOOD-GLUCOSE METER KIT Check sugars 2-3 times a day. Dx Code E11.9. Brand per insurance. Patient has uncontrolled diabetes and needs to check sugars at least 2 times a day. ACCU-CHEK CALCIUM ACETATE,PHOSPHAT BIND, 667 MG CAPSULE Take 1 capsule by mouth. DOXAZOSIN 2 MG TABLET Take 1 tablet by mouth at bedtime. ERGOCALCIFEROL, VITAMIN D2, (VITAMIN D2) 1,250 MCG (50,000 UNIT) CAPSULE Take 1 capsule by mouth weekly. FLUTICASONE PROPIONATE 50 MCG/ACTUATION NASAL SPRAY Use 1 Powell in each nostril. INSULIN GLARGINE (LANTUS U-100 INSULIN) 100 UNIT/ML INJECTION inject 20 Units under the skin daily. INSULIN REGULAR HUMAN (NOVOLIN R FLEXPEN) 100 UNIT/ML [...] hours. If still high call the clinic. INSULIN SYR/NDL U100 HALF ADRI 0.3 ML 30 GAUGE X 1/2" SYRG 1 Syringe 2 (two) times daily. LANCETS (FREESTYLE LANCETS) 28 GAUGE [facility] [place] USE ONE LANCET TO CHECK BLOOD GLUCOSE 2 TO 3 TIMES A DAY LATANOPROST 0.005 % OPHTHALMIC DROPS Place 1 Drop in both eyes every evening. LIRAGLUTIDE (VICTOZA 2-CUCO) 0.6 MG/0.1 ML (18 MG/3 ML) INJECTION inject 1.2 mg under the skin. LISINOPRIL-HYDROCHLOROTHIAZIDE 20-25 MG PER TABLET Take 1 tablet by mouth daily. METFORMIN ER 500 MG 24 HR TABLET Take 2 tablets by mouth 2 (two) times daily. PREDNISOLONE ACETATE 1 % OPHTHALMIC SUSPENSION DROPS Place 1 Drop in both eyes in the morning. SILDENAFIL (VIAGRA) 100 MG TABLET Take 1 tablet by mouth daily. SODIUM BICARBONATE 650 MG TABLET TAKE 1 TABLET BY MOUTH IN THE MORNING AND 1 AT NOON AND 1 IN THE EVENING WITH MEALS TRAZODONE 50 MG TABLET Take 1 tablet by mouth. START taking Modified Medications as Prescribed No medications on file STOP taking these medications No medications on file Current Outpatient Medications Medication Sig Dispense Refill amLODIPine 10 mg tablet Take 1 tablet by mouth in the morning. atenoloL 25 mg tablet Take 1 tablet by mouth at bedtime. calcium acetate,phosphat bind, 667 mg capsule Take 1 capsule by mouth. fluticasone propionate 50 mcg/actuation nasal spray Use 1 Powell in each nostril. latanoprost 0.005 % ophthalmic drops Place 1 Drop in both eyes every evening. liraglutide (VICTOZA 2-CUCO) 0.6 mg/0.1 mL (18 mg/3 mL) injection inject 1.2 mg under the skin. sodium bicarbonate 650 mg tablet TAKE 1 TABLET BY MOUTH IN THE MORNING AND 1 AT NOON AND 1 IN THE EVENING WITH MEALS traZODone 50 mg tablet Take 1 tablet by mouth. lancets (FREESTYLE LANCETS) 28 gauge [facility] [place] USE ONE LANCET TO CHECK BLOOD GLUCOSE 2 TO 3 TIMES A DAY 100 Each 0 blood sugar diagnostic strip Check sugars 2-3 times a day. Dx Code E11.9. Brand per insurance. Patient has uncontrolled diabetes and needs to check sugars at least 2 times a day. ACCU-CHEK- same brand as meter 100 Strip 11 Blood-Glucose Meter Kit Check sugars 2-3 times a day. Dx Code E11.9. Brand per insurance. Patient has uncontrolled diabetes and needs to check sugars at least 2 times a day. ACCU-CHEK 1 Kit 0 sildenafiL (VIAGRA) 100 mg tablet Take 1 tablet by mouth daily. 12 tablet 1 doxazosin 2 mg tablet Take 1 tablet by mouth at bedtime. 30 tablet 3 lisinopriL-hydrochlorothiazide 20-25 mg per tablet Take 1 tablet by mouth daily. 90 tablet 3 metformin ER 500 mg 24 hr tablet Take 2 tablets by mouth 2 (two) times daily. 360 tablet 3 Insulin Regular Human (NOVOLIN R FLEXPEN) 100 [...] still high call the clinic. 3 Syringe 3 ergocalciferol, vitamin d2, (VITAMIN D2) 1,250 mcg (50,000 unit) capsule Take 1 capsule by mouth weekly. 12 capsule 1 insulin syr/ndl U100 half adri 0.3 mL 30 gauge x 1/2" Syrg 1 Syringe 2 (two) times daily. 100 Syringe 3 atorvastatin 20 mg tablet Take 20 mg by mouth at bedtime. bimatoprost (LUMIGAN) 0.01 % ophthalmic drops Place 1 Drop in each eye in the morning. insulin glargine (LANTUS U-100 INSULIN) 100 unit/mL injection inject 20 Units under the skin daily. 10 mL 1 prednisoLONE acetate 1 % ophthalmic suspension drops Place 1 Drop in both eyes in the morning. No current facility-administered medications for this visit. Family History: Family History Problem Relation Age of Onset Diabetes Mother Hypertension Mother Stroke Mother Diabetes Maternal Grandmother Hypertension Maternal Grandmother Diabetes Maternal Aunt Hypertension Maternal Aunt Diabetes Maternal Uncle Hypertension Maternal Uncle Alcohol/Drug Father Social History: Social History Socioeconomic History Marital status: Spouse name: Zohra Number of children: 5 Highest education level: 8th grade Occupational History Occupation: Disabled Tobacco Use Smoking status: Former Current packs/day: 1.00 Average packs/day: 1 pack/day for 5.0 years (5.0 ttl pk-yrs) Types: Cigarettes Smokeless tobacco: Never Substance and Sexual Activity Alcohol use: Yes Alcohol/week: 12.0 standard drinks of alcohol Types: 12 Cans of beer per week Comment: was drinking daily, now a couple days a week Drug use: Yes Types: Marijuana, Cocaine Comment: smoked majuriuana and did cocaine in 20s but not anymore Review of Systems: A 14 point ROS was obtained, only positive responses are in BOLD Constitutional: Fever, chills, loss of appetite, fatigue, unexplained weight loss, unexplained weight gain, weakness Head/Ears/Nose/Mouth/Throat: Head: Headache, head injury, neck pain, neck stiffness Ears: Ear discharge, hearing loss, ear pain, tinnitus Nose: Nose bleeds, sinus congestion, runny nose, postnasal drip, sneezing, sinus pressure Mouth: Dental problems, mouth sores, sore tongue, dry mouth Throat: Sore throat, trouble swallowing, voice change Eyes: Discharge, itching, pain, redness, pain, vision disturbance, blurred vision, vision loss, cataracts, glaucoma CV: Chest pain, palpitations, arrhythmias, dyspnea on exertion, othopnea, claudication, edema, coronary artery disease/history of [place] Respiratory: Cough, sputum production, hemoptysis, wheezing, shortness of breath, sleep apnea GI: Dysphagia, abdominal pain, abdominal distention, indigestion, nausea, vomiting, diarrhea, constipation, hematemesis, blood in stool or dark stool, rectal bleeding, rectal pain, jaundice : Frequency, urgency, pain or burning with urination, flank pain, hematuria, incontinence, change in urinary stream, discharge, bleeding, pelvic pain, irregular menses Musculoskeletal: Muscle pain, joint pain, joint swelling, back pain, stiffness, weakness, limitation of motion, arthritis, trauma Integumentary/Breast: Integumentary: Rash, itching, pigmented lesions, lumps, tenderness, swelling, wound Breast: Pain, lumps, nipple discharge, skin changes Neurological: Weakness, sensory changes, syncope, seizures, headache, numbness, tingling, tremor, trauma Hematologic/Lymphatic: Hematologic: Bleeding tendency, easy bruising, history of blood clots, anticoagulation/antiplatelet therapy Lymphatic: Lymphadenopathy Endocrine: Polyuria, polydipsia, polyphagia, heat or cold intolerance, hair loss, appetite changes Allergic/Immunologic: Allergic: Allergic reactions Immunologic: Recurrent infections Psychiatric: Agitation, confusion, decreased concentration, hallucinations, anxiety, self-injury, sleep disturbance, suicidal ideation Physical Exam: BP (!) 174/99 | Pulse 77 | Temp 36.3 ?C (97.3 ?F) | Resp 20 | Ht 1.727 m (5' 8") | Wt 70.8 kg (156 lb) | SpO2 99% | BMI 23.72 kg/m? Constitutional: Awake, alert, oriented, in no acute distress Head: Normocephalic, atraumatic Eyes: Extraocular movements grossly intact, pupils equal and reactive to light and accomodation, anicteric sclerae Ears: Normal external exam Nose: Normal external exam Mouth: Moist mucous membranes Neck: Supple, no jugular venous distention, well healed scar to anterior left neck Cardiovascular: Hemodynamically normal Respiratory: Symmetry of chest wall motion, no respiratory distress Musculoskeletal: Normal tone and strength, normal range of motion Neurologic: CN II through XII grossly intact, no focal deficits Skin: Warm and dry, capillary refill <2 seconds, no jaundice, rashes, lesions, or erythema Psychiatric: Appropriate mood and affect, no obvious deficits of insight or judgment Labs: Latest Reference Range & Units 09/15/23 18:48 WBC x10 3 4.20 - 10.70 10*3/?L 5.92 RBC x10 6 4.26 - 5.52 10*6/?L 4.05 (L) HGB 12.2 - 16.4 g/dL 11.1 (L) HCT 38.4 - 49.3 % 33.3 (L) MCV 81.7 - 95.6 fL 82.2 MCH 26.1 - 32.7 pg 27.4 MCHC 31.2 - 35.0 g/dL 33.3 RDW-SD 38.5 - 51.6 fL 37.3 (L) RDW-CV 12.1 - 15.4 % 12.5 PLT x10 3 150 - 328 10*3/?L 244 MPV 9.8 - 13.0 fL 10.5 NRBC /100 WBC 0.0 - 10.0 /100 WBCs 0.0 NRBC x10 3 10*3/?L <0.01 GRAN MAT (NEUT) % % 67.7 IMM GRAN % % 0.20 LYMPH% % 21.6 MONO % % 8.3 EOS % % 1.5 BASO % % 0.7 GRAN MAT x10 3 (ANC) 1.99 - 6.95 10*3/uL 4.01 IMM GRAN x10 3 0.00 - 0.06 10*3/uL <0.03 LYMPH x10 3 1.09 - 3.23 10*3/uL 1.28 MONO x10 3 0.36 - 1.02 10*3/uL 0.49 EOS x10 3 0.06 - 0.53 10*3/uL 0.09 BASO x10 3 0.01 - 0.09 10*3/uL 0.04 NA 135 - 145 mmol/L 138 K 3.5 - 5.0 mmol/L 4.5 CL 98 - 108 mmol/L 107 CO2 TOTAL 23 - 31 mmol/L 14 (L) AGAP 2 - 16 17 (H) BUN 7 - 23 mg/dL 59 (H) GLUCOSE 70 - 110 mg/dL 134 (H) CREATININE 0.60 - 1.25 mg/dL 7.17 (H) eGFR mL/min/1.73m2 8.5 TOTAL BILI 0.1 - 1.1 mg/dL 0.6 CALCIUM 8.6 - 10.6 mg/dL 9.2 T PROTEIN 6.3 - 8.2 g/dL 8.4 (H) ALBUMIN 3.5 - 5.0 g/dL 4.2 TROPONIN I <=0.034 ng/mL 0.028 NT-proBNP <=125 pg/mL 8,290 (H) ALK PHOS 34 - 122 U/L 86 ALTv 5 - 50 U/L 13 AST(SGOT) 13 - 40 U/L 20 SARS-CoV-2 Rapid ID NOW Not Detected Not Detected Rapid Influenza A Negative Negative Rapid Influenza B Negative Negative COVID DMT Interpretation Interpretation/Recommendations: Molecular NAAT Tests for Active Infection with the SARS-CoV-2 Virus: The patient has currently tested negative for the [...] nasopharyngeal sampling deficiencies rather than inherent test capabilities. If the patient has symptoms concerning for COVID-19 illness, the patient should still isolate for at least 5 days and a repeat NAAT test (PCR, Rapid ID Now, etc.) is recommended. Additionally, if the patient is symptomatic but tests negative for COVID-19, influenza and other upper respiratory infections (such as common cold viruses and RSV) should be considered. Lastly, if the patient was exposed to COVID-19, current CDC guidelines recommend wearing a high-quality mask when around others for 10 days with testing on day 5 in lieu of quarantining. Interpretation Result Comments: These interpretation comments are based upon the following COVID-19 tests the patient has had at [facility]: molecular nucleic acid amplification tests (NAAT) (specifically PCR testing and Rapid ID Now testing) and antibody tests. It does not take into account antigen testing or any additional testing that a patient may have had outside of the [facility] medical record. COVID Results SARS-CoV-2 Rapid ID NOW (no units) Date Value 09/15/2023 Not Detected 12/15/2020 Not Detected 06/19/2020 Not Detected (L): Data is abnormally low (H): Data is abnormally high Latest Reference Range & Units 09/15/23 18:49 LACTIC ACID WHOLE BLOOD 0.50 - 2.20 mmol/L 1.40 Latest Reference Range & Units 09/15/23 18:52 POCT GLU 70 - 110 mg/dL 131 (H) (H): Data is abnormally high Latest Reference Range & Units 09/15/23 19:26 COLOR Yellow Yellow APPEARANCE Clear Clear SP GRAVITY 1.003 - 1.030 1.011 PH 4.8 - 8.0 5.0 PROTEIN Negative 500 mg/dL ! GLU U QUAL Normal 50 mg/dL ! KETONES Negative 5 mg/dL ! BILIRUBIN Negative Negative BLOOD Negative 1+ ! UROBILIN Normal Normal NITRITE Negative Negative LEUK JAQUI Negative Negative RBC/HPF 0 - 3 HPF 2 WBC/HPF 0 - 5 HPF 1 BACTERIA Negative Few ! SQ EPITH HPF <1 SPERM <=1 HPF <1 !: Data is abnormal Assessment: Jeevan Ordaz Jr. is a 53 year old male with a PMH significant for HTN, HLD, DM, diabetic retinopathy, and CKD stage 5 who presents for HD access. Will plan for tunneled HD catheter placement with US and fluoro on 01/30/2024. Plan: Schedule tunneled HD catheter placement, risks/benefits discussed, consent obtained in clinic ISTAT on AM of surgery Michelle Moscoso M.D. 01/22/2024 13:08 T [facility] Procedure Notes Date/Time Note Provider Source 2024-02-29 07:39:50 Associated Order(s): Nerve Block Nerve Block Nerve Block Procedure List: AXILLARY APPROACH TOBRACHIAL PLEXUS. Patient Location: Holding Laterality: Left Surgical Anesthesia: Post Op Pain: Start Time: 02/29/2024 7:20 AM End Time: 02/29/2024 7:40 AM Post Op Pain Management requested by surgeon per surgical: Progress Note Anesthesiologist: Patrick Whyte MD Performed by: anesthesiologist Preanesthetic timeout completed prior to procedure: patient identified,IV checked, site marked, risks and benefits discussed, surgical consent, monitors and equipment checked, pre-op evaluation, timeout performed Patient Position: supine Monitoring: continuous pulse ox, blood pressure and ECG Injection Technique: single-shot Needle Gauge: 22 G Needle Length: 4.0 Number of Attempts: 1 Technique: Negative aspiration and Intermittent aspiration during injection Events: Patient tolerated procedure well, Negative Aspiration and No paresthesia on incremental injection Medications Given: Regional: Bupiv 0.5% 20 mL Lido 2% 10 mL EPI 1:200K Sedation: Midazolam 1 AN-ANESTHESIOLOGY ANESTHESIOLOGIST [facility] Notes Date/Time Note Provider Source 2024-07-15 14:15:00 Images from the original note were not included. Venipuncture collection performed by clean technique on the right anticubitus. Total of 1 attempts were made. Slight pressure and a bandage/dressing were applied to the site(s). The patient experienced no complications. The following specimens were processed according to instructions and sent to [facility] laboratories per lab order on 07/15/2024: LT BLUE SST 1 RED LAV PPT DK GREEN (LiHep) DK GREEN (SodH) MAXWELL DK BLUE (K2) DK BLUE (S) ACD Blood Culture NIPT/NTD [facility] 2024-07-15 13:40:11 Pt received call from dialysis center and was told to go to lab and does not need to be seen at ED. Pt eloped at this time from triage. [facility] 2024-07-15 13:33:08 Pt states he hasn't had dialysis in 8-9 days due to noncompliance and mental health issues. Last dialysis 07/04. Gets dialysis Monday, , Monday. Currently denies sxs. ICA Harris RN [facility] 2024-04-03 06:09:00 Pt given printed and verbal discharge instructions regarding acute right sided thoracic. Prescriptions provided. Pt verbalized understanding of instructions, pt awake alert oriented, resp reg unlabored, skin w/d, color appropriate for race, moves all ext well,pt encouraged to follow up with pcp. Advised to seek medical attention for new/prolonged/worsening of symptoms. No adverse reaction to meds given in ER noted upon discharge. PIV d'cd, dressing to site, catheter in tact. Awake, alert oriented, resp reg unlabored, skin w/d, pt leaving amb with steady gait, in no apparent distress. Margaret Ramires RN [facility] 2024-04-03 03:30:46 Pt states around 1800 today he began to have pain under the right shoulder blade. Pt denies any SOB. Nesha Huber RN [facility] 2024-04-03 03:26:00 [facility] Emergency Department Note Patient Name: Jeevan Ordaz Jr. 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 He denies injury or trauma. No sob. No cough or URI sx. No fevers. No change in the pain with exertion or deep breathing. No change in the pain with movement of his right arm. No meds taken for his sx at home. He denies any pain like this in the past. He is an ESRD patient and goes M/W/F. He is scheduled to have HD later today. He does make urine. Here for eval. Past Medical History/Immunizations: Past Medical History: Diagnosis Date Depression Diabetes mellitus Diabetic retinopathy ED (erectile dysfunction) Hyperlipidemia Hypertension Legally blind Tetanus received in last 5 years: Unknown Childhood immunizations: Up-to-date Allergies: No Known Allergies Past Social History: Tobacco Use Some Days; 1 pack/day; Smoked an average of 1 pack/day for 5.0 years; Types: Cigarettes Smokeless Tobacco: Never used smokeless tobacco. Alcohol Use Yes; 12.0 standard drinks of alcohol per week; 12 Cans of beer. Comments: was drinking daily, now a couple days a week Drug Use Yes; Marijuana, Cocaine. Comments: smoked majuriuana and did cocaine in 20s but not anymore Past Surgical History: Past Surgical History: Procedure Laterality Date ARTERIOVENOUS FISTULA CREATION Left 02/29/2024 Surgeon: Andrei Yanes MD; Location: [facility] OR LOCATION DIRECT LARYNGOSCOPY N/A 01/08/2018 Surgeon: Petey Looney MD; Location: [facility] Location EYE SURGERY INCISION AND DRAINAGE OF ABSCESS Left 01/10/2018 Surgeon: Nitish Bajwa MD; Location: [facility] Location TUNNELED CATHETER (SHX) 02/02/2024 RT IJ tunneled HD catheter Review of Systems: Review of Systems Constitutional: Negative for chills and fever. Respiratory: Negative for cough and shortness of breath. Cardiovascular: Negative for chest pain. Gastrointestinal: Negative for abdominal pain and vomiting. Genitourinary: Negative for flank pain. Musculoskeletal: Positive for back pain. Negative for neck pain and neck stiffness. Skin: Negative for wound. Neurological: Negative for dizziness. Psychiatric/Behavioral: Negative for agitation. Endocrine: Negative for goiter. Physical Exam: ED Triage Vitals [04/03/24 0331] Weight 76.2 kg (168 lb) Actual or estimated Height 1.727 m (5' 8") BP (!) 194/112 Pulse 97 Resp 18 Temp 37.2 ?C (99 ?F) Temp src SpO2 99 % Measured on Room air Physical Exam Vitals and nursing note reviewed. Constitutional: Appearance: Normal appearance. HENT: Head: Normocephalic and atraumatic. Cardiovascular: Rate and Rhythm: Normal rate and regular rhythm. Pulses: Normal pulses. Pulmonary: Effort: Pulmonary effort is normal. No respiratory distress. Breath sounds: No stridor. No wheezing or rhonchi. Comments: Right upper chest wall HD catheter site is c/d/i Abdominal: General: There is no distension. Palpations: Abdomen is soft. There is no mass. Tenderness: There is no abdominal tenderness. There is no guarding. Hernia: No hernia is present. Musculoskeletal: General: Normal range of motion. Cervical back: Normal range of motion and neck supple. Skin: General: Skin is warm and dry. Comments: Left arm AV fistula with palpable thrill Neurological: General: No focal deficit present. Mental Status: He is alert and oriented to person, place, and time. Radiology: XR CHEST 1 VW Preliminary Result EXAM: XR CHEST 1 VW COMPARISON: 02/02/2024. HISTORY: 53 years-old Male; right back pain FINDINGS: The tip of the right IJV access dual-lumen catheter projects over the proximal right atrium. Lungs: The lung volumes are normal. Mild pulmonary vasculature congestion without evidence of pulmonary edema. No focal opacities. No pneumothorax. No pleural effusion. Heart/Mediastinum: The cardiac silhouette appears normal. Bones and soft tissues: No acute osseous findings are detected. IMPRESSION No radiographic evidence of acute cardiopulmonary process. Preliminary Report Dictated by Resident: Octavio Viveros Lab Results: Lab Results URINALYSIS - Abnormal Result Value Ref Range APPEARANCE Clear Clear COLOR Straw (*) Yellow PH 7.0 4.8 - 8.0 SP GRAVITY 1.009 1.003 - 1.030 GLU U QUAL 500 mg/dL (*) Normal BLOOD Negative Negative KETONES Negative Negative PROTEIN 500 mg/dL (*) Negative UROBILIN Normal Normal BILIRUBIN Negative Negative NITRITE Negative Negative LEUK JAQUI Negative Negative RBC/HPF 1 0 - 3 HPF WBC/HPF <1 0 - 5 HPF BACTERIA Few (*) Negative MUCOUS Slight (*) Negative LPF EKG: If EKG completed, see Procedure Note. Orders and Treatments: Orders Placed This Encounter Procedures XR CHEST 1 VW URINALYSIS Orders Placed This Encounter Medications HYDROcodone-acetaminophen (NORCO 5) 5-325 mg tablet 1 tablet First Provider Eval: ED Events Date/Time Event User Comments 04/03/24 0328 Medical Screening Begins BERENICE ASHER DO -- 04/03/24 032 First Provider Evaluation BEREINCE ASHER DO -- ED COURSE Diagnosis/Impression as of 04/03/24 0602 Acute right-sided thoracic back pain Procedures: Procedures MDM: Medical Decision Making The patient presents from home for eval for pain to right back below his scapula that he noted around 1800. He denies injury or trauma. No sob. No cough or URI sx. No fevers. No change in the pain with exertion or deep breathing. No change in the pain with movement of his right arm. No meds taken for his sx at home. He denies any pain like this in the past. He is an ESRD patient and goes M//. He is scheduled to have HD later today. He does make urine. VSS here in the EC. Lungs clear. No pitting edema to b/l legs. No rash to his back. Mild tenderness to right lower posterior rib cage. Will check UA and CXR. Will also give pain meds. Final dispo pending. 0602 -the patient is doing well here in the ER. His x-ray shows no acute cardiopulmonary issues. His urinalysis shows no infection. He remained stable here in the ER and is okay for discharge home with PCP follow-up. Problems Addressed: Acute right-sided thoracic back pain: acute illness or injury Amount and/or Complexity of Data Reviewed Labs: ordered. Decision-making details documented in ED Course. Radiology: ordered and independent interpretation performed. Decision-making details documented in ED Course. Risk OTC drugs. Prescription drug management. Flowsheet Documentation: Scoring Tools: No data recorded Disposition/Condition: ED Disposition ED Disposition Disch - Home Condition Stable Comment -- Discharge Medications: Patient's Medications START taking these medications No medications on file CONTINUE taking these medications which have NOT CHANGED AMLODIPINE 10 MG TABLET Take 1 tablet by mouth in the morning. ATENOLOL 25 MG TABLET Take 1 tablet by mouth at bedtime. ATORVASTATIN 20 MG TABLET Take 1 tablet by mouth at bedtime. BIMATOPROST (LUMIGAN) 0.01 % OPHTHALMIC DROPS Place 1 Drop in each eye in the morning. BLOOD SUGAR DIAGNOSTIC STRIP Check sugars 2-3 times a day. Dx Code E11.9. Brand per insurance. Patient has uncontrolled diabetes and needs to check sugars at least 2 times a day. ACCU-CHEK- same brand as meter BLOOD-GLUCOSE METER KIT Check sugars 2-3 times a day. Dx Code E11.9. Brand per insurance. Patient has uncontrolled diabetes and needs to check sugars at least 2 times a day. ACCU-CHEK BUMETANIDE 2 MG TABLET Take 1 tablet by mouth ONCE PRN (Lower extremity swelling). CALCIUM ACETATE,PHOSPHAT BIND, 667 MG CAPSULE Take 1 capsule by mouth in the morning and 1 capsule at noon and 1 capsule in the evening. Take with meals. FLUTICASONE PROPIONATE 50 MCG/ACTUATION NASAL SPRAY Use 1 Powell in each nostril. HYDROCODONE-ACETAMINOPHEN 5-325 MG TABLET Take 1 tablet by mouth. LANCETS (FREESTYLE LANCETS) 28 [facility] USE ONE LANCET TO CHECK BLOOD GLUCOSE 2 TO 3 TIMES A DAY LATANOPROST 0.005 % OPHTHALMIC DROPS Place 1 Drop in both eyes every evening. LISINOPRIL-HYDROCHLOROTHIA ZIDE 20-25 MG PER TABLET Take 1 tablet by mouth daily. METHOCARBAMOL 500 MG TABLET Take 2 tablets by mouth 4 (four) times daily. As needed PREDNISOLONE ACETATE 1 % OPHTHALMIC SUSPENSION DROPS Place 1 Drop in both eyes in the morning. SILDENAFIL (VIAGRA) 100 MG TABLET Take 1 tablet by mouth daily. SODIUM BICARBONATE 650 MG TABLET TAKE 1 TABLET BY MOUTH IN THE MORNING AND 1 AT NOON AND 1 IN THE EVENING WITH MEALS TRAZODONE 50 MG TABLET Take 1 tablet by mouth as needed. START taking Modified Medications as Prescribed No medications on file STOP taking these medications No medications on file Follow-up: Electronically signed by: Berenice Asher DO 04/03/24601 [facility] 2024-03-05 12:27:02 Called and spoke to patient. Doing better. Will follow up in clinic [facility] 2024-03-01 13:45:44 Images from the original note were not included. Received message from Telma Olvera RN State she "called him for PACU follow up and he is stating his pain is 7/10. He said he didn t get anything for pain." Spoke with patient. Notified of discharge instructions patient denies any pain at this time. States he was having cramping at site. Patient encouraged to use tylenol and ibuprofen OTC prn if he develops pain again and to contact patient if pain is not controlled. Patient verbalized understanding. Per discharge note: Deborah Kaplan RN [facility] 2024-02-29 10:01:48 Patient: Jeevan Ordaz Jr. Procedure Summary Date: 02/29/24 Room / Location: [address] Anesthesia Start: 719 Anesthesia Stop: 911 Procedure: ARTERIOVENOUS FISTULA CREATION (Left: Arm) Diagnosis: ESRD (end stage renal disease) (ESRD (end stage renal disease) [N18.6], ARTERIOVENOUS FISTULA CREATION) Surgeons: Andrei Yanes MD Responsible Provider: Patrick Whyte MD Anesthesia Type: General, TIVA, MAC, Regional ASA Status: 3 Anesthesia Type: General, TIVA, MAC, Regional Last vitals BP (!) 144/80 (02/29/24 0945) Temp Pulse 68 (02/29/2445) Resp (!) 4 (02/29/2445) SpO2 98 % (02/29/24944) There were no known notable events for this encounter. Anesthesia Post Evaluation Patient location during evaluation: PACU Patient participation: complete - patient participated Level of consciousness: awake and alert Pain score: 0 Pain management: satisfactory to patient Multimodal analgesia pain management approach Airway patency: patent Cardiovascular status: acceptable and blood pressure returned to baseline Respiratory status: acceptable Hydration status: acceptable AN-ANESTHESIOLOGY ANESTHESIOLOGIST [facility] 2024-02-29 07:59:00 BRIEF OPERATIVE NOTE Date of Surgery: 02/29/2024 Surgeons and Role: * Andrei Yanes MD - Primary * Carlos Ramírez MD - Resident - Assisting Pre-Op Diagnosis: ESRD (end stage renal disease) [N18.6] Post-Op Diagnosis Codes: * ESRD (end stage renal disease) [N18.6] Procedures: Procedure(s) (LRB): ARTERIOVENOUS FISTULA CREATION (Left) CPT: 29551, 75943, 25813, 04555, 11609, 81545, Any Complications Encounters: None Estimated Blood Loss: 10cc Specimens Removed: * No specimens in log * * No implants in log * Patient's Condition: Good Findings: Brachiocephalic AVF created. Palpable thrill. Distal radial pulse palpated Any other important information: None Please see dictated operative report for additional detail. T [facility] 2024-02-23 08:46:48 NOT $$ CLEARED NOT CONTRACTED FOR TRANSPLANT LETTER SENT Submitted for financial review 02/21/24 Pati Blank [facility] 2024-02-21 11:02:24 Referral received via: fax How did the patient hear about our program: outreach Submitted for financial clearance Insurance Information: Tereza ID#[id number] ph: SSN: [id number] Weight: 156lbs Height: 5'8" Referring MD: Member Name Role and Specialty Contact Info Address Comments Trung Crawford DO Referring Pager: [phone] Email: [email or web address] [place] [address] - glass 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 unknown Is the patient on dialysis? yes [facility] Address: [address] [address] Which organ are you referring the patient for transplant? Kidney Is the patient listed for transplant at this time at another center: no Has the patient been evaluated or are they being evaluated at another center? no Has the patient had a previous transplant (s): no Does the patient have cancer or a history of : no Does the patient have HIV/AIDS: no Do you have a history of heart problems or heart disease: no Do you have a bulk delivery driver? No Have you ever had any amputations? no Have you ever had a stroke? Yes, 2019 Do you have a history of diabetes? yes Do you take Insulin: No Does the patient use assistive devices: No Does the patient have any special needs? Oxygen? no Have you had a colonoscopy within 10 years: No Do you have a living donor: No If yes: Please have your living donor call [phone] and and speak to the Living Donor Yarn Texturing Machine Operator Coordinator. The marketing assistant retail division will take their information and provide directions for their next step Berenice Coyne [facility] 2024-02-19 10:02:12 Name/ MRN / Age / Gender: Jeevan Ordaz , [id number] 53 year old male BMI: Estimated body mass index is 23.72 kg/m? as calculated from the following: Height as of 02/15/24: 1.727 m (5' 8"). Weight as of this encounter: 70.8 kg (156 lb). Allergies: Patient has no known allergies. Last Vitals: BP Readings from Last 1 Encounters: 02/15/24 (!) 154/88 Pulse Readings from Last 1 Encounters: 02/15/24 89 SpO2 Readings from Last 1 Encounters: 02/15/24 97% Date of Surgery: 02/02/2024 Surgeon: Michelle Moscoso MD Procedure: ARTERIOVENOUS FISTULA CREATION (Left) OR Location: [facility] OR [facility] Anesthesia Preop Eval (physical exam) Anesthesia Preop: [id number] APAC Communication: Called and spoke with patient 02/19/24 at 10:23AM Successful airway: ETT Successful intubation technique: video laryngoscopy Endotracheal tube insertion site: oral Blade: Mara Blade size: #3 ETT size: 6.0 mm Cormack-Lehane Classification: grade I - full view of glottis Number of attempts at approach: 1 Additional Comments Attempted 2 times with fiberoptic, unable to get view, g1v on CMAC NPO Status Verified PONV Risk Factors: non-smoker Anesthesia History Anesthesia History Negative (-) Hx of anesthetic complications (-) Fam hx of anesthetic complications Previous Anesthetics/Airways Cardiovascular Negative Cardiac ROS Comments: EKG 09/15/23: Sinus tachycardia Otherwise normal ECG METS: 4 (+) Hypertension (+) Dyslipidemia (+) CAD Pulmonary Comments: +Hx of I&D of parapharyngeal abscess - 01/2018 (+) Tobacco use (+) Allergic rhinitis (-) COVID-19 within the past 6 weeks (-) Influenza within the past 6 weeks (-) Pneumonia within the last 6 weeks Neuro/Musculoskeletal Comments: Legally Blind (+) 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 no residual weakness . only imbalance)CVA Date: 2017 (+) Psychiatric history and depression GI/Hepatic Negative GI/Hepatic ROS Hematology Comments: 02/02/24 16:23 WBC x10 3 : 4.60 RBC x10 6 : 2.78 (L) HGB: 7.5 (L) HCT: 23.9 (L) MCV: 86.0 MCH: 27.0 MCHC: 31.4 RDW-SD: 42.8 RDW-CV: 13.6 PLT x10 3 : 169 (+) Anemia Renal Comments: 02/02/24 08:37 NA: 138 K: 4.3 CL: 110 (H) CO2 TOTAL: 17 (L) AGAP: 11 BUN: 88 (H) GLUCOSE: 111 (H) CREATININE: 11.26 (H) eGFR: 4.9 (+) Renal disease and CKD (+) Dialysis, hemodialysis and MWF Last Dialysis: 02/28/24 Skin (+) Current IV access and 20g Endo/Other Comments: Significant hyperglycemia. Internal medicine has been consulted and is placing patient on sliding scale. 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 Hold on DOS. Phentermine: Alert [facility] anesthesiologist SGLT2 Inhibitors: "gliflozins" to be held for 3 days prior to elective surgeries GLP1 Agonosit: stop 7 days prior to surgery MAC Cases: Continue taking JO inhibitors and ARBs ASA Classification ASA: 3 ASA Comments: 53 year old male with longstanding history of chronic kidney disease who has now been declared end-stage renal and started on hemodialysis via a tunneled hemodialysis catheter just about a week and a half ago. He is dialyzed Monday. He is right-handed. No prior surgeries to the left upper extremity. He does note some chronic paresthesias with numbness to his left digits. He also has a difficult time with abduction of his fifth left digit towards the fourth digit. He is now presents for Left fistula creation. PMHX: Depression ? Diabetes mellitus ? Diabetic retinopathy ? ED (erectile dysfunction) ? Hyperlipidemia ? Hypertension ? Legally blind 02/28 K- 4.1 02/28 BS - 122 Labs: Chemistry 02/02/2024 CBC 02/02/2024 138 110 (H) 88 (H) 111 (H) 4.60 7.5 (L) 169 4.3 17 (L) 11.26 (H) 23.9 (L) eGFR: 4.9 Date: 02/02/2024 ANC: 4.15 Date: 02/02/2024 LFTs 09/15/2023 Coags AST: 20 AP: 86 Prot: 8.4 (H) Ca: 7.3 (L) PT: - Date: - ALT: 13 T Dalton: 0.6 Alb: 4.2 PTT: - Date: - PO4: - Date: - INR: - Date: - Cardiac Endocrine & other pBNP: 8,290 (H) Date: 09/15/2023 A1C: - Date: - Trop I: 0.028 Date: 09/15/2023 POCT A1C: - Date: - CK: - Date: - TSH: - Date: - CKMB: - Date: - FT4: - Date: - LDL: - Date: - Lact: 1.40 Date: 09/15/2023 Procal: - Date: - Respiratory -|-|-|-|68.0 (L) D-dimer: - ABG Date: - Date: - Miscellaneous Type and Screen: A NEGATIVE Antibody: Negative Date: 02/02/2024 POCT : - Date: - Current Medications: Outpatient Medications Marked as Taking for the 02/29/24 encounter (Hospital Encounter) Medication Sig Dispense Refill HYDROcodone-acetaminophen 5-325 mg tablet Take 1 tablet by mouth. methocarbamoL 500 mg tablet Take 2 tablets by mouth 4 (four) times daily. As needed bumetanide 2 mg tablet Take 1 tablet by mouth ONCE PRN (Lower extremity swelling). amLODIPine 10 mg tablet Take 1 tablet by mouth in the morning. atenoloL 25 mg tablet Take 1 tablet by mouth at bedtime. calcium acetate,phosphat bind, 667 mg capsule Take 1 capsule by mouth in the morning and 1 capsule at noon and 1 capsule in the evening. Take with meals. fluticasone propionate 50 mcg/actuation nasal spray Use 1 Powell in each nostril. latanoprost 0.005 % ophthalmic drops Place 1 Drop in both eyes every evening. sodium bicarbonate 650 mg tablet TAKE 1 TABLET BY MOUTH IN THE MORNING AND 1 AT NOON AND 1 IN THE EVENING WITH MEALS traZODone 50 mg tablet Take 1 tablet by mouth as needed. lancets (FREESTYLE LANCETS) 28 gauge [facility] USE ONE LANCET TO CHECK BLOOD GLUCOSE 2 TO 3 TIMES A DAY 100 Each 0 blood sugar diagnostic strip Check sugars 2-3 times a day. Dx Code E11.9. Brand per insurance. Patient has uncontrolled diabetes and needs to check sugars at least 2 times a day. ACCU-CHEK- same brand as meter 100 Strip 11 Blood-Glucose Meter Kit Check sugars 2-3 times a day. Dx Code E11.9. Brand per insurance. Patient has uncontrolled diabetes and needs to check sugars at least 2 times a day. ACCU-CHEK 1 Kit 0 sildenafiL (VIAGRA) 100 mg tablet Take 1 tablet by mouth daily. 12 tablet 1 lisinopriL-hydrochlorothia zide 20-25 mg per tablet Take 1 tablet by mouth daily. 90 tablet 3 atorvastatin 20 mg tablet Take 1 tablet by mouth at bedtime. bimatoprost (LUMIGAN) 0.01 % ophthalmic drops Place 1 Drop in each eye in the morning. prednisoLONE acetate 1 % ophthalmic suspension drops Place 1 Drop in both eyes in the morning. Previous Surgeries: Past Surgical History: Procedure Laterality Date DIRECT LARYNGOSCOPY N/A 01/08/2018 Surgeon: Petey Looney MD; Location: [facility] Location EYE SURGERY INCISION AND DRAINAGE OF ABSCESS Left 01/10/2018 Surgeon: Nitish Bajwa MD; Location: [facility] Location TUNNELED CATHETER (SHX) 02/02/2024 RT IJ tunneled HD catheter Anesthesia Physical Exam General no apparent distress and alert and oriented x 3 Neuro/Psych neurological Dental edentoulous Abdominal GI exam normal Airway Mallampati score:II TM distance:> 5 cm Neck ROM: full Mouth opening:normal (+) Normal facies Extremity Normal extremity Pulmonary pulmonary exam normal Other Cardiovascular Rhythm:regular Rate: normal Anesthesia Plan ASA Status: 3 Plan discussed during pre-op evaluation: General Anesthetic plan on DOS: General, TIVA and RegionalThis patient has a regional anesthesia type of other. 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 Consent obtained and questions answered. Pt agrees with anesthetic plan. BELKIS Mota [facility] 2024-02-15 14:35:49 Images from the original note were not included. Your procedure is at [facility] on 02/29/24. The address is [address] [place] [address], [facility]. [facility] nursing staff will call you the workday before your procedure to let you know what time to arrive.On the day of your procedure, please go inside that door and check in at the desk. Please note: You may not travel home alone and that includes in a taxi or by bus. We must speak to your Responsible Adult (who will be picking you up) the morning of your procedure, before the start of your procedure. This person must be an adult over the age of 18 years of age. Do not eat any solid food after midnight the night before surgery. You may have sips of clear liquids such as water, gatorade, and sprite up until two hours before your scheduled procedure. You may take your medications with a sip of water as directed by physician. Anticoagulants will be per physician guidance. Medication Note(s)/Instructions:Instr ucted to hold lisinopril-HCTZ day before and morning of surgery and hold bumetanide morning of surgery. Requested text with medication instructions, provided as requested. Pending screening, we may test for COVID. If a patient tests positive, their cases are cancelled and/or rescheduled. COVID SCREENING NOTE: Denies COVID symptoms, no testing required. Additional requests, questions, concerns:CB number and availability provided. Patient verbalized understanding of pre-op instructions and voiced no further questions at this time. [facility] 2024-02-07 08:57:38 Spoke with patient and spouse. Educated dialysis nurse should be maintaining dressing changes during dialysis. States they have not been set up for dialysis s/p permacath placement. Instructed patient to reach out to nephrology (Dr Crawford) to set up dialysis. Patient and spouse verbalized understanding. Patient to contact the clinic if unable to get in with dialysis. Deborah Kaplan RN [facility] 2024-02-06 17:15:31 Jeevan Ordaz Jr. is a 53 year old male pt and spouse are calling to check the status of the call back. Kathy Johnston 02/06/2024 5:16 PM Kathy Johnston [facility] 2024-02-06 16:26:37 Pt had surgery with Dr. Moscoso 02/01/25 and is calling stating he is needing his dressing changed and was not given any supplies. Pt has PO appt 02/15/24, please advise and assist. Lucila Gage [facility] 2024-02-03 19:23:02 Pt told registration that they were leaving didn't want to wait. Yoselin Johnson RN [facility] 2024-02-03 18:47:37 Patient states: "I had surgery yesterday for dialysis catheter placement. Today I noticed it leaking with blood and fluid." Val Malcolm RN [facility] 2024-02-02 16:15:00 Images from the original note were not included. Venipuncture collection performed by clean technique on the left anticubitus. Total of 1 attempts were made. Slight pressure and a bandage/dressing were applied to the site(s). The patient experienced no complications. The following specimens were processed according to instructions and sent to [facility] laboratories per lab order on 02/02/2024: LT BLUE SST 1 RED LAV 1 PPT DK GREEN (LiHep) DK GREEN (SodH) MAXWELL DK BLUE (K2) DK BLUE (S) ACD Blood Culture NIPT/NTD [facility] 2024-02-01 09:44:30 Spoke with spouse, aware procedure is scheduled for 02/02/24 and that day surgery would be calling today and to be sure to answer. Spouse verbalized understanding. Deborah Kaplan RN [facility] 2024-02-01 08:58:18 Images from the original note were not included. Your procedure is at [facility] on 02/02/24. The address is [address] [place] [address], [id number]. [facility] nursing staff will call you the workday before your procedure to let you know what time to arrive.On the day of your procedure, please go inside that door and check in at the desk. Please note: You may not travel home alone and that includes in a taxi or by bus. We must speak to your Responsible Adult (who will be picking you up) the morning of your procedure, before the start of your procedure. This person must be an adult over the age of 18 years of age. Do not eat any solid food after midnight the night before surgery. You may have sips of clear liquids such as water, gatorade, and sprite up until two hours before your scheduled procedure. You may take your medications with a sip of water as directed by physician. Anticoagulants will be per physician guidance. Medication Note(s)/Instructions:Instr ucted to hold lisinopril-HCTZ today and tomorrow morning and not to take bumetanide in the morning. Pending screening, we may test for COVID. If a patient tests positive, their cases are cancelled and/or rescheduled. COVID SCREENING NOTE: Denies COVID symptoms, no testing required. Additional requests, questions, concerns: Complained of itching, no rash. Requested MD be notified. CB number provided. Patient verbalized understanding of pre-op instructions and voiced no further questions at this time. [facility] [employer] 2024-02-01 08:54:03 I believe the patient has been rescheduled for 02/02/2024, however if he does not respond for preoperative instructions his case will be cancelled again. [facility] 2024-02-01 08:15:00 The patient was called for his Pre-op screening [...] reschedule. Message sent to Jael Moscoso's nurse. Telma Olvera RN [facility] 2024-01-31 15:20:52 Patient and spouse present in clinic today very [...] day before arrival time. Girlfriend present, Betsy Ocampo, states she was present at patient's presurgical [...] and added girlfriend on as additional contact information. Reviewed notes, saw MD Moscoso requested patient to be added on 02/02/24. Checked with surgical scheduling who were able to add case on to 02/02/24. Attempted to contact patient at 2 phone numbers and girlfriend's number, no answer. LVM requesting patient call office. Jael Ruiz RN [facility] 2024-01-30 11:54:01 Could we see if we can get the patient back on the schedule for this Monday please? [facility] 2024-01-30 09:25:25 Called patient back to discuss rationale for cancellation. No answer, left VM message explaining that we were unable to reach him to do mandatory pre-op screening call despite >10 messages and two texts. Also unable to reach patient to notify him of cancellation yesterday. Encouraged patient to call me back if he needed more information or had any questions. Number provided. Yany Miller RN [facility] 2024-01-30 08:08:38 Jeevan Ordaz Jr. is a 53 year old male Patient is calling back upset requesting to speak with staff to discuss cancellation of surgery. Please contact at earliest convenience Valery Mcmahon [facility] 2024-01-30 07:59:06 Jeevan Ordaz Jr. is a 53 year old male Pt is extremely upset that his surgery was cancelled and no one called him to cancel. Pt would like to know what he is supposed to do now. Please contact pt. Rosita Manuel [facility] 2024-01-29 12:26:42 Attempted to call X 10, text message X 2, to speak with patient to complete pre-op screening call. All available numbers attempted. Sent cancellation. Yany Miller RN [facility] 2024-01-29 11:55:44 Attempted to call every number listed for this patient, including emergency contacts. Patient not answering, messages left that if he does not call today before noon that surgery will be canceled. Also texted patient and child's listed number and informed them that way as well. Jael Ruiz RN [facility] 2024-01-22 13:00:00 Addended by: WILDA GONZALEZ LVN on: 01/22/2024 03:06 PM Modules accepted: Orders [facility] 2023-12-28 13:01:50 Reason for Referral/Presenting Complaint: Preoperative cardiovascular examination (prior to AV fistula surgery). Preoperative cardiovascular faxed to Dr. Crawford. [facility] Fax number: [phone] Care Team: [address] [place] [address] [facility] 2023-10-12 15:00:11 Jeevan Ordaz Jr is a 53 year old male is calling to discuss assistance with payments. Please call him at [phone] GE RUNNER Kristyn Ospina [facility] 2023-10-10 15:44:47 Called INDIRA Lara we are no in network with his insurance. Self pay dinh is 136.50. GE RUNNER Slime Ramires [facility] 2023-09-15 22:36:58 Patient leaving AMA/without final disposition,Patients A&OX4, discussed risks of leaving against medical advice/final dispositon, Dr. Thrasher aware and notified of patient's decision. Patient encouraged to seek medical attention for any new/prolonged/worsening of symptoms and stressed importance of follow up with a medical provider as soon as possible. AMA form explained, patient verbalized understanding and signature obtained IV d'cd, dressing to site. Patient leaving ambulatory with steady gait, appears in no distress [facility] Nesha Huber RN [facility] 2023-09-15 22:35:35 Patient requested to speak to Singer SORIA. Patient changed his mind and does not want to be admitted to hospital at this time. Risks explained to patient and patient was able to verbalize risks and reports understanding. AMA form signed. IV line removed. Patient in stable condition when leaving the ER. Ambulatory with steady gait. ICA Champion RN [facility] 2023-09-15 22:09:53 Nurse Report Report given to JOAN Sawyer over the phone, no questions received. Chief complaint, assessment findings and medications were discussed. Plan of care discussed with patient, patient aware of plan. Patient in stable condition at time report was given,no distress. Vital signs reassessed. Patient pending EMS to cone picker and transport. Ashley Champion RN [facility] 2023-09-15 21:12:11 Patient given a sandwich and juice - tolerating well. [facility] 2023-09-15 18:58:01 Patient's name and verified with patient. Chief Complaint Patient presents with Hypertension PNEUMONIA Patient ambulatory with steady gait with EC arrival. Patient is conscious and alert, with normal/unlabored breathing, and normal color/tone for ethnicity -oriented to name, time, place, and situation. GCS 15. Patient reports he has been feeling extremely fatigued and weak since this morning. Was at [facility] a couple of days ago where he was told he "had pneumonia" but left hospital AMA then . Patient denies nausea, vomiting, fever, chills, diarrhea, shortness of breath and chest pain. Past Medical History: Diagnosis Date Depression Diabetes mellitus Diabetic retinopathy ED (erectile dysfunction) Hyperlipidemia Hypertension Legally blind Patient non compliant with medications. Says he took his BP meds ~30min prior to ER arrival. No known allergies. Vitals obtained. Assessment performed. IV in place and patent. Placed on continuous spo2/cardiac monitoring, HR 118, sinus tachycardia on monitor. Bed low and locked, secured with two rails, call light within reach. Belongings at bedside. Patient aware of plan of care. Ashley Champion RN [facility] 2023-09-15 18:20:12 Patient states: "I was at [facility] 3 days ago and they diagnosed me with hypertension and pneumonia but one of the nurses gave me an attitude so I just walked out. I had been in the ER all day and they didn't feed me anything. I asked for something to eat and the nurse just about threw it at me." Reports he was admitted into the hospital but was holding in ER. Denies CP/ SOB Reports he wants to checked out and get some prescriptions. 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: None Travel and Exposure Screening: Symptoms Does patient have any of these symptoms?: (not recorded) Exposure Screening Has patient had contact with someone with a communicable disease in the last month?: (not recorded) Diseases exposed to:: (not recorded) Is Patient ?: (not recorded) Exposure Date: (not recorded) Chief Complaint: Chief Complaint Patient presents with Hypertension PNEUMONIA ED Triage Notes Andreina Hoffman, RN 09/15/2023 18:25 Patient states: "I was at [facility] 3 days ago and they diagnosed me with hypertension and pneumonia but one of the nurses gave me an attitude so I just walked out. I had been in the ER all day and they didn't feed me anything. I asked for something to eat and the nurse just about threw it at me." Reports he was admitted into the hospital but was holding in ER. Denies CP/ SOB Reports he wants to checked out and get some prescriptions. 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 Original note by Andreina Hoffman RN at 09/15/2023 18:21 History of Present Illness: Jeevan Ordaz Jr is a 53 year old male with fatigue cough, shortness of breath for last 3 days. Was seen and evaluated at and left AMA. Reportedly had dx of PNA and HTN. He is non hypoxic. Presented tachycardic. Elevated BP. Past Medical History/Immunizations: Past Medical History: Diagnosis Date Depression Diabetes mellitus Diabetic retinopathy ED (erectile dysfunction) Hyperlipidemia Hypertension Legally blind Tetanus received in last 5 years: No Childhood immunizations: Up-to-date Allergies: No Known Allergies Past Social History: Tobacco Use Former; 1 pack/day for 5.00 years; Types: Cigarettes Smokeless Tobacco: Never used smokeless tobacco. Alcohol Use Yes; 12.0 standard drinks of alcohol per week; 12 Cans of beer. Comments: was drinking daily, now a couple days a week Drug Use Yes; Marijuana, Cocaine. Comments: smoked majuriuana and did cocaine in 20s but not anymore Past Surgical History: Past Surgical History: Procedure Laterality Date DIRECT LARYNGOSCOPY N/A 01/08/2018 Surgeon: Petey Looney MD; Location: [facility] OR [facility] EYE SURGERY INCISION AND DRAINAGE OF ABSCESS Left 01/10/2018 Surgeon: Nitish Bajwa MD; Location: [facility] OR [facility] Review of Systems: Review of Systems Constitutional: Positive for fatigue. Negative for activity change, appetite change, chills, diaphoresis and fever. HENT: Negative for sore throat and voice change. Eyes: Negative for pain and visual disturbance. Respiratory: Positive for shortness of breath. Negative for cough and chest tightness. Cardiovascular: Negative for chest pain and leg swelling. Gastrointestinal: Negative for abdominal pain, blood in stool, constipation and diarrhea. Genitourinary: Negative for dysuria, urgency and difficulty urinating. Musculoskeletal: Negative for back pain. Skin: Negative for color change, rash and wound. Neurological: Negative for dizziness and headaches. Hematological: Does not bruise/bleed easily. Physical Exam: ED Triage Vitals [09/15/23 1823] Weight 71.7 kg (158 lb) Actual or estimated Estimated by patient/family report Height 1.727 m (5' 8") BP (!) 176/120 Pulse 125 Resp 16 Temp 37.3 ?C (99.1 ?F) Temp source Oral SpO2 100 % Measured on Room air Physical Exam Vitals and nursing note reviewed. Constitutional: Appearance: He is well-developed. HENT: Head: Normocephalic and atraumatic. Eyes: General: No scleral icterus. Conjunctiva/sclera: Conjunctivae normal. Pupils: Pupils are equal, round, and reactive to light. Neck: Vascular: No JVD. Cardiovascular: Rate and Rhythm: Normal rate and regular rhythm. Heart sounds: Normal heart sounds. Pulmonary: Effort: Pulmonary effort is normal. Breath sounds: Normal breath sounds. No stridor. Abdominal: General: Bowel sounds are normal. Palpations: Abdomen is soft. Musculoskeletal: General: Normal range of motion. Cervical back: Normal range of motion and neck supple. Skin: General: Skin is warm and dry. Neurological: Mental Status: He is alert and oriented to person, place, and time. Psychiatric: Behavior: Behavior normal. Thought Content: Thought content normal. Radiology: XR CHEST 1 VW Final Result ORDERING PHYSICIAN: GRADY THRASHER CLINICAL HISTORY: shortness of breath TECHNIQUE: AP chest radiograph. COMPARISON: None. FINDINGS: No focal pulmonary consolidation, pleural effusion or pneumothorax. Heart size within normal limits. Visualized bones are unremarkable. IMPRESSION 1. No acute pulmonary abnormality. RL: [id number] End of report. Lab Results: Lab Results CBC WITH DIFF - Abnormal Result Value Ref Range WBC 5.92 4.20 - 10.70 10*3/?L RBC 4.05 (*) 4.26 - 5.52 10*6/?L HGB 11.1 (*) 12.2 - 16.4 g/dL HCT 33.3 (*) 38.4 - 49.3 % MCV 82.2 81.7 - 95.6 fL MCH 27.4 26.1 - 32.7 pg MCHC 33.3 31.2 - 35.0 g/dL RDW-SD 37.3 (*) 38.5 - 51.6 fL RDW-CV 12.5 12.1 - 15.4 % PLT 244 150 - 328 10*3/?L MPV 10.5 9.8 - 13.0 fL NRBC/100 WBC 0.0 0.0 - 10.0 /100 WBCs NRBC x10 3 <0.01 10*3/?L GRAN MAT (NEUT) % 67.7 % IMM GRAN % 0.20 % LYMPH % 21.6 % MONO % 8.3 % EOS % 1.5 % BASO % 0.7 % GRAN MAT x10 3 (ANC) 4.01 1.99 - 6.95 10*3/uL IMM GRAN x10 3 <0.03 0.00 - 0.06 10*3/uL LYMPH x10 3 1.28 1.09 - 3.23 10*3/uL MONO x10 3 0.49 0.36 - 1.02 10*3/uL EOS x10 3 0.09 0.06 - 0.53 10*3/uL BASO x10 3 0.04 0.01 - 0.09 10*3/uL COMP. METABOLIC PANEL (68456) - Abnormal NA 138 135 - 145 mmol/L K 4.5 3.5 - 5.0 mmol/L CL 107 98 - 108 mmol/L CO2 TOTAL 14 (*) 23 - 31 mmol/L AGAP 17 (*) 2 - 16 BUN 59 (*) 7 - 23 mg/dL GLUCOSE 134 (*) 70 - 110 mg/dL CREATININE 7.17 (*) 0.60 - 1.25 mg/dL TOTAL BILI 0.6 0.1 - 1.1 mg/dL CALCIUM 9.2 8.6 - 10.6 mg/dL T PROTEIN 8.4 (*) 6.3 - 8.2 g/dL ALBUMIN 4.2 3.5 - 5.0 g/dL ALK PHOS 86 34 - 122 U/L ALTv 13 5 - 50 U/L AST(SGOT) 20 13 - 40 U/L eGFR 8.5 mL/min/1.73m2 N-TERMINAL PRO-BNP - Abnormal NT-proBNP 8,290 (*) <=125 pg/mL URINALYSIS - Abnormal APPEARANCE Clear Clear COLOR Yellow Yellow PH 5.0 4.8 - 8.0 SP GRAVITY 1.011 1.003 - 1.030 GLU U QUAL 50 mg/dL (*) Normal BLOOD 1+ (*) Negative KETONES 5 mg/dL (*) Negative PROTEIN 500 mg/dL (*) Negative UROBILIN Normal Normal BILIRUBIN Negative Negative NITRITE Negative Negative LEUK JAQUI Negative Negative RBC/HPF 2 0 - 3 HPF WBC/HPF 1 0 - 5 HPF BACTERIA Few (*) Negative SQ EPITH <1 HPF SPERM <1 <=1 HPF POCT GLUCOSE (AUTOMATED) - Abnormal POCT GLU 131 (*) 70 - 110 mg/dL TROPONIN I - Normal TROPONIN I 0.028 <=0.034 ng/mL RAPID INFLUENZA A/B - Normal Rapid Influenza A Negative Negative Rapid Influenza B Negative Negative COVID-19 (ID NOW RAPID TESTING) - Normal SARS-CoV-2 Rapid ID NOW Not Detected Not Detected LACTIC ACID WHOLE BLOOD - Normal LACTIC ACID 1.40 0.50 - 2.20 mmol/L EKG: If EKG completed, see Procedure Note. Orders and Treatments: Orders Placed This Encounter Procedures XR CHEST 1 VW Cbc with Diff Comp. Metabolic Panel (54381) N-Terminal Pro-Bnp Troponin I Urinalysis RAPID INFLUENZA A/B COVID-19 (ID NOW TESTING) Lactic Acid Whole Blood Lactic Acid Whole Blood POCT GLUCOSE (AUTOMATED) Lab Only COVID Interpretation Orders Placed This Encounter Medications hydralAZINE (APRESOLINE) injection 10 mg First Provider Eval: ED Events None ED COURSE ED Course as of 09/15/232236Sep 15, 20232004 CREATININE(!): 7.17 [PS] 2004 BUN(!): 59 [PS] 2004 NT-proBNP(!): 8,290 [PS] ED Course User Index [PS] Grady Thrasher DO Diagnosis/Impression as of 09/15/232236 Secondary hypertension Acute renal failure, unspecified acute renal failure type Congestive heart failure, unspecified HF chronicity, unspecified heart failure type Procedures: Procedures MDM: Medical Decision Making Jeevan Ordaz Jr is a 53 year old male with new onset renal failure. 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 BNP elevated 8300. Tachycardic. No hypoxia. Accelerated hypertension. Coordinated admission at [facility]. Prior to ambulance arriving patient declined admission after prolonged conversation regarding severity of illness and necessity for admission. Patient concerned about his son travelling to see him and he believes that he feels better and is ok to go home. Explained that his feeling better is not conducive with his medical needs. He continued to decline admission. Unfortunately he decided to leave AMA. The patient is clinically not intoxicated, free from [...] Department at any time, particularly with worsening symptoms. Problems Addressed: Acute renal failure, unspecified acute renal failure type: acute illness or injury Congestive heart failure, unspecified HF chronicity, unspecified heart failure type: acute illness or injury Secondary hypertension: chronic illness or injury with exacerbation, progression, or side effects of treatment Amount and/or Complexity of Data Reviewed Labs: ordered. Decision-making details documented in ED Course. Radiology: ordered. ECG/medicine tests: ordered and independent interpretation performed. Details: 18:47 Rate 120. Sinus Tachycardia. No dynamic ST changes. Risk Prescription drug management. Flowsheet Documentation: Scoring Tools: No data recorded Disposition/Condition: ED Disposition ED Disposition AMA Condition Stable Comment Patient left AMA - did not want to transfer/be admitted Discharge Medications: Patient's Medications START taking these medications No medications on file CONTINUE taking these medications which have NOT CHANGED ATORVASTATIN 20 MG TABLET Take 20 mg by mouth at bedtime. BIMATOPROST (LUMIGAN) 0.01 % OPHTHALMIC DROPS Place 1 Drop in each eye daily. BLOOD SUGAR DIAGNOSTIC STRIP Check sugars 2-3 times a day. Dx Code E11.9. Brand per insurance. Patient has uncontrolled diabetes and needs to check sugars at least 2 times a day. ACCU-CHEK- same brand as meter BLOOD-GLUCOSE METER KIT Check sugars 2-3 times a day. Dx Code E11.9. Brand per insurance. Patient has uncontrolled diabetes and needs to check sugars at least 2 times a day. ACCU-CHEK DOXAZOSIN 2 MG TABLET Take 1 tablet by mouth at bedtime. ERGOCALCIFEROL, VITAMIN D2, (VITAMIN D2) 1,250 MCG (50,000 UNIT) CAPSULE Take 1 capsule by mouth weekly. INSULIN GLARGINE (LANTUS U-100 INSULIN) 100 UNIT/ML INJECTION inject 20 Units under the skin daily. INSULIN REGULAR HUMAN (NOVOLIN R FLEXPEN) 100 UNIT/ML [...] hours. If still high call the clinic. INSULIN SYR/NDL U100 HALF ADRI 0.3 ML 30 GAUGE X 1/2" SYRG 1 Syringe 2 (two) times daily. LANCETS (FREESTYLE LANCETS) 28 GAUGE [facility] USE ONE LANCET TO CHECK BLOOD GLUCOSE 2 TO 3 TIMES A DAY LISINOPRIL-HYDROCHLOROTHIA ZIDE 20-25 MG PER TABLET Take 1 tablet by mouth daily. METFORMIN ER 500 MG 24 HR TABLET Take 2 tablets by mouth 2 (two) times daily. PREDNISOLONE ACETATE 1 % OPHTHALMIC SUSPENSION DROPS Place 1 Drop in both eyes daily. SILDENAFIL (VIAGRA) 100 MG TABLET Take 1 tablet by mouth daily. START taking Modified Medications as Prescribed No medications on file STOP taking these medications No medications on file Follow-up: Contact information for follow-up Trung Crawford DO Specialty: IM-NEPHROLOGY Relationship: PCP - [address] [place] [address] Electronically signed by: Grady Thrasher DO 09/15/23 2835 [facility]
[2024-07-15] MEDS ORDERED: ALBUTEROL 2.5 MG/3 ML NEB SOL ONE (20:28)
[2024-07-15] MEDS ORDERED: SOD POLYSTYREN SUL 15 GM/60 ML UCUP ONE (20:28)
--- NOTE | 2024-07-15 21:04 | RAD REPORT ---
Procedure: Chest Single View HISTORY: Cough COMPARISON: September 2023 FINDINGS: The lungs appear clear of acute infiltrate. No significant pleural effusion noted. The heart is probably normal size. IMPRESSION: No acute abnormality is displayed.
[2024-07-15 21:16] LABS: Absolute Basophils 0.1 K/uL (0-0.5); Absolute Eosinophils 0.2 K/uL (0-0.5); Absolute Lymphocytes (CBC) 1.1 K/uL (0.7-4.9); Absolute Monocytes 0.4 K/uL (0.1-1.3); Absolute Neutrophil 4.6 K/uL (1.8-8.0); Basophils % 0.9 % (0-1.3); Eosinophils % 2.8 % (0-4.4); Hematocrit 35.8 % (39.6-49.0); Hemoglobin 11.4 g/dL (13.6-17.9); Lymphocytes % 16.9 % (15.3-44.8); MCH 27.3 pg (27.0-35.0); MCHC 31.9 g/dL (32.0-36.0); MCV 85.5 fL (80-100); MPV 9.2 fL (7.6-11.3); Neutrophils % 72.4 % (41.7-73.7); Platelets 179 thou/uL (152-406); RBC Red Blood Cell Count 4.19 M/uL (4.33-5.43); Red Cell Distribution Width 16.2 % (12.1-15.2)
[2024-07-15 21:19] LABS: PT Prothrombin Time 11.3 SECONDS (9.4-12.5); Protime INR 1.01
[2024-07-15 22:04] LABS: ALT/SGPT 16 U/L (16-61); AST/SGOT < 10 U/L (15-37); Albumin 3.5 g/dL (3.4-5.0); Albumin/Globulin Ratio 0.8 (1.1-1.8); Alkaline Phosphatase 73 U/L (45-117); Anion Gap 16.8 mEq/L (5.0-15.0); BUN Blood Urea Nitrogen 112 mg/dL (7-18); Bicarbonate 16 mEq/L (21-32); Bilirubin Direct < 0.2 mg/dL (0-0.2); Bilirubin Indirect, Calculated 0.2 mg/dL (0.2-0.8); Bilirubin Total 0.4 mg/dL (0.2-1.0); Globulin 4.5 g/dL (2.3-3.5); Glomerular Filtration Rate 3 ml/min (=/>90); Glucose Level 133 mg/dL (74-106); Magnesium 3.1 mg/dL (1.6-2.4); NT PRO-BNP 60807 pg/mL (<125); Sodium Level 136 mEq/L (136-145); Troponin High Sensitivity 48.2 pg/mL (<58.9)
[2024-07-15 22:16] LABS: Potassium 6.8 mEq/L (3.5-5.1)
--- NOTE | 2024-07-15 22:47 | ER ---
Nurse's Notes [facility] Name: Amor Ramírez Jr Age: 54 yrs Sex: Male : 1970 Arrival Date: 07/15/2024 Time: 18:55 Bed 14 Private MD: Diagnosis: Hyperkalemia;Hypertensive heart and chronic kidney disease with heart failure and with stage 5 chronic kidney disease, or end stage renal disease Presentation: 07/15 19:50 Chief complaint: Patient states: Chest pain and headache onset 1hr [employer]. PT states that cm10 he has not had dialysis in 9 days. Had labs drawn and had elevated potassium. Pt also reports feeling weak and more tired. Coronavirus screen: Client denies travel out of the [place] in the last 14 days. Ebola Screen: Patient denies travel to an Ebola-affected area in the 21 days before illness onset. No symptoms or risks identified at this time. Initial Sepsis Screen: Does the patient meet any 2 criteria? No. Patient's initial sepsis screen is negative. Does the patient have a suspected source of infection? No. Patient's initial sepsis screen is negative. Risk Assessment: Do you want to hurt yourself or someone else? Patient reports no desire to harm self or others. Onset of symptoms was July 15, 2024. 19:50 Method Of Arrival: Wheelchair cm10 19:50 Acuity: YADIEL 2 cm10 Triage Assessment: 19:53 General: Appears in no apparent distress. uncomfortable, Behavior is calm, cooperative. cm10 Neuro: No deficits noted. Level of Consciousness is awake, alert, obeys commands, Oriented to person, place, time, situation, Appropriate for age. Respiratory: No deficits noted. Airway is patent Respiratory effort is even, unlabored, Respiratory pattern is regular, symmetrical. Historical: - Allergies: 19:52 NKDA; cm10 - PMHx: 19:52 Diabetes - IDDM; Hypercholesterolemia; Hypertension; TIA; ESRD- Dialysis T, TH, S; cm10 19:54 Restless leg syndrome; cm10 - PSHx: 19:52 Dialysis Fistula- Left arm; cm10 - Immunization history:: Adult Immunizations up to date. - Infectious Disease History:: Denies. - Social history:: Smoking status: Patient reports the use of cigarette tobacco products, denies chronic smoking, but will smoke occasionally. Screenin:00 [facility] ED Fall Risk Assessment (Adult) History of falling in the last 3 months, rg5 including since admission No falls in past 3 months (0 pts) Confusion or Disorientation No (0 pts) Intoxicated or Sedated No (0 pts) Impaired Gait No (0 pts) Mobility Assist Device Used Yes (1 pt) Altered Elimination No (0 pt) Score/Fall Risk Level 0 - 2 = Low Risk Oriented to surroundings, Maintained a safe environment, Hourly rounding (assess needs \T\ fall precautionary measures) done. Abuse screen: Denies threats or abuse. Nutritional screening: No deficits noted. Tuberculosis screening: No symptoms or risk factors identified. Assessment: 20:00 General: Appears in no apparent distress. Behavior is calm, cooperative, appropriate rg5 for age. 20:00 Pain: Denies pain. Neuro: Level of Consciousness is Oriented to. Cardiovascular: Heart rg5 tones S1 S2 Patient's skin is warm and dry. Rhythm is sinus rhythm. Respiratory: Airway is patent Trachea midline Respiratory effort is even, unlabored, Respiratory pattern is regular, symmetrical. GI: Abdomen is round non-distended. : No signs and/or symptoms were reported regarding the genitourinary system. EENT: No deficits noted. Derm: Skin is intact, Skin is Skin is normal, Skin temperature is warm. Musculoskeletal: Circulation, motion, and sensation intact. Range of motion: intact in all extremities. 21:00 Reassessment: No changes from previously documented assessment. Patient and/or family rg5 updated on plan of care and expected duration. Pain level reassessed. 22:00 Reassessment: No changes from previously documented assessment. Patient and/or family rg5 updated on plan of care and expected duration. Pain level reassessed. Patient is alert, oriented x 3, equal unlabored respirations, skin warm/dry/pink. 23:00 Reassessment: Patient and/or family updated on plan of care and expected duration. Pain rg5 level reassessed. Patient is alert, oriented x 3, equal unlabored respirations, skin warm/dry/pink. 07/16 00:00 Reassessment: Patient and/or family updated on plan of care and expected duration. Pain rg5 level reassessed. Patient is alert, oriented x 3, equal unlabored respirations, skin warm/dry/pink. Patient states feeling better. 00:10 Reassessment: Patient and/or family updated on plan of care and expected duration. Pain rg5 level reassessed. Patient is alert, oriented x 3, equal unlabored respirations, skin warm/dry/pink. Patient states feeling better. Vital Signs: 07/15 19:50 BP 163 / 81; Pulse 84; Resp 18; Temp 98.4(TE); Pulse Ox 99% on R/A; Weight 72.57 kg; cm10 Height 5 ft. 8 in. ; Pain 0/10; 20:00 BP 164 / 92; Pulse 82; Resp 18; Temp 98; Pulse Ox 97% on R/A; Pain 0/10; rg5 21:30 BP 177 / 93; Pulse 95; Resp 18; Pulse Ox 96% on R/A; rg5 07/16 00:48 BP 168 / 91; Pulse 88; Resp 17; Temp 98(O); Pulse Ox 98% on R/A; Pain 0/10; rg5 05:00 BP 191 / 95; Pulse 87; Resp 18; Temp 98(O); Pulse Ox 96% on R/A; Pain 0/10; rg5 07/15 19:50 Body Mass Index 24.33 (72.57 kg, 172.72 cm) cm10 07/15 19:50 Pain Scale: Adult cm10 20:00 Pain Scale: Adult rg5 07/16 00:48 Pain Scale: Adult rg5 05:00 Pain Scale: Adult rg5 ED Course: 07/15 18:58 Patient arrived in ED. mr 19:00 Michael Stephen PA is PHCP. cp 19:00 Michael Castelan MD is Attending Physician. cp 19:52 Triage completed. cm10 19:54 Arm band placed on Patient placed in waiting room. EKG completed in triage. Results cm10 shown to . 19:54 EKG done, by ED staff, reviewed by Michael CROWDER. cm10 20:00 Patient has correct armband on for positive identification. Bed in low position. Call rg5 light in reach. Side rails up X 1. 20:00 No provider procedures requiring assistance completed. Inserted saline lock: 20 gauge rg5 in right antecubital area, using aseptic technique. Blood collected. Flushed with 10 mL NS. 20:18 Ari Olvera, RN is Primary Nurse. rg5 20:51 XRAY Chest (1 view) In Process Unspecified. EDMS 22:46 Scar Greco MD is Hospitalizing Provider. 07/16 01:20 to 2nd floor for dialysis treatment. rg5 05:00 back from dialysis treatment. rg5 Administered Medications: 07/15 19:58 CANCELLED (Physician Discretion): albuterol5 mg Inhalation once cp 20:00 CANCELLED (Physician Discretion): calcium gluconate1 grams IVPB once over 10 mins; (mix cp in NS 100 mL) 21:06 Drug: Kayexalate PO 45 grams PO once Route: PO; rg5 23:06 Follow up: Response: No adverse reaction rg5 21:06 Drug: Albuterol Inhalation 2.5 mg Inhalation every 20 minutes x3 Route: Inhalation; rg5 21:39 Drug: Albuterol Inhalation 2.5 mg Inhalation every 20 minutes x3 Route: Inhalation; rg5 22:06 Drug: Albuterol Inhalation 2.5 mg Inhalation every 20 minutes x3 Route: Inhalation; rg5 23:30 Drug: Calcium Gluconate IVPB 1 grams IVPB once over 10 mins; (mix in NS 100 mL) Route: rg5 IVPB; Infused Over: 10 mins; Site: right antecubital; 07/16 00:00 Follow up: IV Status: Completed infusion; IV Intake: 100ml [facility] 07/15 23:50 Drug: Furosemide IVP 60 mg IVP once; give over 2 minutes Route: IVP; Site: right rg5 antecubital; 07/16 05:21 Follow up: Response: No adverse reaction rg5 00:00 Drug: Insulin Regular Human IVP 10 units IVP once {Co-Signature: cp4 (Steven Luisa Baker).} Route: IVP; Site: right antecubital; 05:21 Follow up: Response: No adverse reaction rg5 00:08 Drug: D10 in Water IVP 250 ml IVP once Route: IVP; Site: right antecubital; 5 05:21 Follow up: Response: No adverse reaction [facility] 00:36 Drug: Sodium Bicarbonate IVP 1 amp IVP once; (50 mL); equals 50 mEq Route: IVP; Site: rg5 right antecubital; 05:21 Follow up: Response: No adverse reaction [facility] Medication: 07/15 20:00 VIS not applicable for this client. rg5 Intake: 07/16 00:00 IV: 100ml; Total: 100ml. rg5 Outcome: 07/15 22:46 Decision to Hospitalize by Provider. [facility] 07/16 06:22 AMA AMA form signed rg5 06:31 Patient left the ED. vc1 Signatures: Dispatcher [employer] EDMS Beverly Baird, Reg Reg mr Hailee, Michael, VEL PA cp Monica Thakur RN RN vc1 Mena Way RN RN cm10 Ari Olvera RN RN rg5 Olivia Harris cp4 Corrections: (The following items were deleted from the chart) 07/15 19:52 19:50 BP 163 / 81; Pulse 84bpm; Resp 18bpm; Pulse Ox 99% RA; 72.57 kg; Height 5 ft. 8 cm10 in.; BMI: 24.3; Pain 0/10, Adult; cm10
--- NOTE | 2024-07-15 22:48 | EDPHYS ---
Physician Documentation [facility] Name: Amor Ramírez Jr Age: 54 yrs Sex: Male : 1970 Arrival Date: 07/15/2024 Time: 18:55 Bed 14 Private MD: ED Physician Michael Castelan HPI: 07/15 20:00 This 54 yrs old Male presents to ER via Wheelchair with complaints of Abnormal cp Lab Results, Missed Dialysis. 20:00 Patient is a 54 y/o male referred to ED for evaluation after missing dialysis for about cp 1 and 1/2 weeks. 20:00 Associated signs and symptoms: Pertinent positives: chest pain, weakness, headache. cp Historical: - Allergies: 19:52 NKDA; cm10 - PMHx: 19:52 Diabetes - IDDM; Hypercholesterolemia; Hypertension; TIA; ESRD- Dialysis T, TH, S; cm10 19:54 Restless leg syndrome; cm10 - PSHx: 19:52 Dialysis Fistula- Left arm; cm10 - Immunization history:: Adult Immunizations up to date. - Infectious Disease History:: Denies. - Social history:: Smoking status: Patient reports the use of cigarette tobacco products, denies chronic smoking, but will smoke occasionally. ROS: 20:05 Constitutional: Negative for body aches, chills, fever, poor PO intake, cp 20:05 Eyes: Negative for injury, pain, redness, and discharge, cp 20:05 Cardiovascular: Positive for chest pain, Negative for palpitations, 20:05 Respiratory: Negative for cough, shortness of breath, wheezing, 20:05 Abdomen/GI: Negative for abdominal pain, nausea, vomiting, diarrhea, 20:05 Neuro: Positive for headache, weakness, Negative for altered mental status, dizziness, speech changes, 20:05 All other systems are negative, Exam: 20:10 Constitutional: The patient appears in no acute distress, alert, awake, cp non-diaphoretic, non-toxic, well developed, well nourished, 20:10 Head/Face: Normocephalic, atraumatic. cp 20:10 Eyes: Periorbital structures: appear normal, Conjunctiva: normal, no exudate, no injection, Sclera: no appreciated abnormality, Lids and lashes: appear normal, bilaterally, 20:10 ENT: External ear(s): are unremarkable, Nose: is normal, Mouth: Lips: moist, Oral mucosa: pink and intact, moist, Posterior pharynx: Airway: no evidence of obstruction, patent, 20:10 Neck: ROM/movement: is normal, is supple, without pain, no range of motions limitations, 20:10 Chest/axilla: Inspection: normal, 20:10 Cardiovascular: Rate: normal, Rhythm: regular, JVD: is not appreciated, 20:10 Respiratory: the patient does not display signs of respiratory distress, Respirations: normal, no use of accessory muscles, no retractions, labored breathing, is not present, Breath sounds: are clear throughout, no decreased breath sounds, no stridor, no wheezing, 20:10 Abdomen/GI: Inspection: abdomen appears normal, Palpation: abdomen is soft and non-tender, in all quadrants, 20:10 Back: pain, is absent, ROM is normal, 20:10 Neuro: Orientation: to person, place \T\ time. Mentation: is normal, Cerebellar function: is grossly normal, Motor: moves all fours, no focal deficits, Sensation: no obvious gross deficits, Vital Signs: 19:50 BP 163 / 81; Pulse 84; Resp 18; Temp 98.4(TE); Pulse Ox 99% on R/A; Weight 72.57 kg; cm10 Height 5 ft. 8 in. ; Pain 0/10; 20:00 BP 164 / 92; Pulse 82; Resp 18; Temp 98; Pulse Ox 97% on R/A; Pain 0/10; [facility] 21:30 BP 177 / 93; Pulse 95; Resp 18; Pulse Ox 96% on R/A; [facility] 07/16 00:48 BP 168 / 91; Pulse 88; Resp 17; Temp 98(O); Pulse Ox 98% on R/A; Pain 0/10; rg5 05:00 BP 191 / 95; Pulse 87; Resp 18; Temp 98(O); Pulse Ox 96% on R/A; Pain 0/10; [facility] 07/15 19:50 Body Mass Index 24.33 (72.57 kg, 172.72 cm) cm10 07/15 19:50 Pain Scale: Adult cm10 20:00 Pain Scale: Adult 5 07/16 00:48 Pain Scale: Adult 5 05:00 Pain Scale: Adult rg5 MDM: 07/15 20:01 Medical Screening Exam initiated cp 22:45 Data reviewed: vital signs, nurses notes, lab test result(s), EKG, radiologic studies, cp plain films, and as a result, I will admit patient. 22:45 Management of patient was discussed with the following: [employer] Automatic: DR Crawford will cp consult and patient to be dialyzed tonight. Patient to be admitted to service of hospitalist, DR Greco, after discussin. I considered the following discharge prescriptions or medication management in the emergency department Medications were administered in the Emergency Department. See MAR. Independent interpretation of the following test(s) in the Emergency Department EKG: See my EKG interpretation above. Care significantly affected by the following chronic conditions: Diabetes, Hypertension, Chronic Kidney Disease. Counseling: I had a detailed discussion with the patient and/or guardian regarding the historical points, exam findings, and any diagnostic results supporting the discharge/admit diagnosis, lab results, radiology results, the need for further work-up and treatment in the hospital. 07/15 19:57 Order name: Basic Metabolic Panel; Complete Time: 22:23 07/15 22:23 Interpretation: Normal except: K 6.8; CL 110; CO2 16; ANION GAP 16.8; GLUC 133; BUN cp 112; CRE 19.20; GFR 3; CA 7.7. 07/15 19:57 Order name: CBC with Diff; Complete Time: 21:36 cp 07/15 21:36 Interpretation: Normal except: RBC 4.19; HGB 11.4; HCT 35.8; MCHC 31.9; RDW 16.2. 07/15 19:57 Order name: LFT's; Complete Time: 22:23 cp 07/15 19:57 Order name: Magnesium; Complete Time: 22:23 cp 07/15 19:57 Order name: NT PRO-BNP; Complete Time: 22:23 cp 07/15 22:31 Interpretation: Reviewed. 07/15 19:57 Order name: PT-INR; Complete Time: 21:36 cp 07/15 19:57 Order name: Troponin HS; Complete Time: 22:23 cp 07/15 22:31 Interpretation: Reviewed. 07/15 23:42 Order name: Urinalysis w/ reflexes EDMS 07/15 23:46 Order name: CBC with Automated Diff EDMS 07/15 23:46 Order name: CBC with Automated Diff EDMS 07/15 23:46 Order name: Comprehensive Metabolic Panel EDMS 07/15 23:46 Order name: Comprehensive Metabolic Panel EDMS 07/16 02:20 Order name: Glucose, Ancillary Testing EDMS 07/16 02:50 Order name: Glucose, Ancillary Testing EDMS 07/15 19:57 Order name: XRAY Chest (1 view); Complete Time: 21:36 cp 07/15 23:46 Order name: CONS Physician Consult EDMS 07/15 19:57 Order name: Cardiac monitoring; Complete Time: 21:06 cp 07/15 19:57 Order name: EKG - Nurse/Tech; Complete Time: 21:06 cp 07/15 19:57 Order name: IV Saline Lock; Complete Time: 21:06 cp 07/15 19:57 Order name: Labs collected and sent; Complete Time: 21:06 cp 07/15 19:57 Order name: O2 Per Protocol; Complete Time: 21:06 cp 07/15 19:57 Order name: O2 Sat Monitoring; Complete Time: 21:06 cp Administered Medications: 19:58 CANCELLED (Physician Discretion): albuterol5 mg Inhalation once cp 20:00 CANCELLED (Physician Discretion): calcium gluconate1 grams IVPB once over 10 mins; (mix cp in NS 100 mL) 21:06 Drug: Kayexalate PO 45 grams PO once Route: PO; [facility] 23:06 Follow up: Response: No adverse reaction [facility] 21:06 Drug: Albuterol Inhalation 2.5 mg Inhalation every 20 minutes x3 Route: Inhalation; [facility] 21:39 Drug: Albuterol Inhalation 2.5 mg Inhalation every 20 minutes x3 Route: Inhalation; [facility] 22:06 Drug: Albuterol Inhalation 2.5 mg Inhalation every 20 minutes x3 Route: Inhalation; [facility] 23:30 Drug: Calcium Gluconate IVPB 1 grams IVPB once over 10 mins; (mix in NS 100 mL) Route: rg5 IVPB; Infused Over: 10 mins; Site: right antecubital; 07/16 00:00 Follow up: IV Status: Completed infusion; IV Intake: 100ml [facility] 07/15 23:50 Drug: Furosemide IVP 60 mg IVP once; give over 2 minutes Route: IVP; Site: right rg5 antecubital; 07/16 05:21 Follow up: Response: No adverse reaction rg5 00:00 Drug: Insulin Regular Human IVP 10 units IVP once {Co-Signature: cp4 (paul Harris).} Route: IVP; Site: right antecubital; 05:21 Follow up: Response: No adverse reaction rg5 00:08 Drug: D10 in Water IVP 250 ml IVP once Route: IVP; Site: right antecubital; rg5 05:21 Follow up: Response: No adverse reaction rg5 00:36 Drug: Sodium Bicarbonate IVP 1 amp IVP once; (50 mL); equals 50 mEq Route: IVP; Site: rg5 right antecubital; 05:21 Follow up: Response: No adverse reaction rg5 Disposition Summary: 07/15/24 22:46 Hospitalization Ordered Notes: Hospitalization Status: Inpatient Admission cp Provider: Scar Greco cp Condition: Fair cp Problem: new cp Symptoms: have improved cp Bed/Room Type: Standard cp Location: [facility] ER HOLD(07/16/24 01:21) vc1 Room Assignment: ERHOLD-(07/16/24 01:21) vc1 Diagnosis - Hyperkalemia cp - 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 Total time: 30 minutes Signatures: Dispatcher [employer] EDMS Michael Stephen PA PA cp Monica Thakur RN RN vc1 Mena Way RN RN cm10 Ari Olvera RN RN rg5 Olivia Harris cp4 Corrections: (The following items were deleted from the chart) 07/15 19:58 19:57 Albuterol Inhalation 5 mg Inhalation once ordered. cp cp 19:58 19:58 BASIC METABOLIC PANEL+C.LAB.BRZ ordered. EDMS EDMS 19:58 19:58 CBC+H.LAB.BRZ ordered. EDMS EDMS 19:58 19:58 HEPATIC FUNCTION+C.LAB.BRZ ordered. EDMS EDMS 19:58 19:58 MAGNESIUM+C.LAB.BRZ ordered. EDMS EDMS 19:58 19:58 PROBNP+C.LAB.BRZ ordered. EDMS EDMS 19:58 19:58 PROTIME (+INR)+COAG.LAB.BRZ ordered. EDMS EDMS 19:58 19:58 Troponin High Sensitivity+C.LAB.BRZ ordered. EDMS EDMS 19:58 19:58 Chest Single View+RAD.RAD.BRZ ordered. EDMS EDMS 20:00 19:57 Calcium Gluconate IVPB 1 grams IVPB once over 10 mins; (mix in NS 100 mL) cp ordered. cp 07/16 01:21 07/15 22:46 Telemetry/MedSurg (Inpatient) cp vc1 07/16 01:21 07/15 22:46 cp vc1 07/16 17:41 07/15 20:05 Cardiovascular: Negative for chest pain, palpitations, cp cp 07/16 17:41 07/15 20:05 Neuro: Negative for altered mental status, dizziness, headache, speech cp changes, weakness, cp
[2024-07-15] MEDS ORDERED: MANNITOL 25% 12.5 GM/50 ML VIAL IV PRN (23:12)
[2024-07-15] MEDS ORDERED: NA CHLORIDE 0.9% 1,000 ML IV PRN (23:12)
[2024-07-15] MEDS ORDERED: ALBUTEROL 2.5 MG/3 ML NEB SOL NEB PRN (23:37)
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
[2024-07-15] MEDS ORDERED: ACETAMINOPHEN 325 MG TABLET PO PRN (23:41)
[2024-07-15] MEDS ORDERED: ONDANSETRON 4 MG/2 ML VIAL IV PRN (23:41)
[2024-07-15] MEDS ORDERED: ALBUMIN HUMAN 25% 50 ML IV SCH (23:45)
[2024-07-15] MEDS ORDERED: FUROSEMIDE 20 MG/ 2ML VIAL ONE (23:55)
[2024-07-15] MEDS ORDERED: NA CHLORIDE 0.9% 100 ML ONE (23:56)
[2024-07-15] MEDS ORDERED: INSULIN REGULAR (HUMAN) 100 UNIT/ML ONE (23:56)
[2024-07-15] MEDS ORDERED: CALCIUM GLUCONATE 1 GM IVPB 1 GM/50 ML BAG IV ONE (23:58)
[2024-07-15] MEDS ORDERED: D10W 250 ML IV ONE (23:58)
[2024-07-16] MEDS ORDERED: SODIUM BICARB 50 MEQ/50ML VIAL ONE (00:26)
[2024-07-16] MEDS ORDERED: HEPARIN 5000 UNIT/ML 1 ML VIAL SQ SCH (01:00)
[2024-07-16] MEDS: D10W 250 ML BAG IV ONE (02:21)
[2024-07-16] MEDS ORDERED: D10W 250 ML IV ONE (02:23)
[2024-07-16 05:18] VITALS: BMI 24.3
[2024-07-16 05:59] LABS: Absolute Eosinophils 0.1 K/uL (0-0.5); Absolute Lymphocytes (CBC) 0.6 K/uL (0.7-4.9); Absolute Monocytes 0.4 K/uL (0.1-1.3); Absolute Neutrophil 3.9 K/uL (1.8-8.0); Basophils % 0.7 % (0-1.3); Eosinophils % 2.3 % (0-4.4); Hematocrit 29.5 % (39.6-49.0); Hemoglobin 10.1 g/dL (13.6-17.9); Lymphocytes % 11.4 % (15.3-44.8); MCH 28.1 pg (27.0-35.0); MCHC 34.1 g/dL (32.0-36.0); MCV 82.4 fL (80-100); MPV 8.8 fL (7.6-11.3); Monocytes % 8.1 % (3.3-12.3); Neutrophils % 77.5 % (41.7-73.7); Nucleated Red Blood Cells % 0.1 % (0-0); Platelets 151 thou/uL (152-406); RBC Red Blood Cell Count 3.58 M/uL (4.33-5.43)
[2024-07-16 06:21] LABS: ALT/SGPT < 14 U/L (16-61); AST/SGOT < 10 U/L (15-37); Albumin 2.9 g/dL (3.4-5.0); Albumin/Globulin Ratio 0.8 (1.1-1.8); Alkaline Phosphatase 63 U/L (45-117); Anion Gap 12.1 mEq/L (5.0-15.0); BUN Blood Urea Nitrogen 56 mg/dL (7-18); Bicarbonate 27 mEq/L (21-32); Bilirubin Total 0.5 mg/dL (0.2-1.0); Globulin 3.5 g/dL (2.3-3.5); Glomerular Filtration Rate 6 ml/min (=/>90); Glucose Level 131 mg/dL (74-106); Potassium 3.1 mEq/L (3.5-5.1); Protein, Total 6.4 g/dL (6.4-8.2); Sodium Level 138 mEq/L (136-145)
[2024-07-16 06:48] VITALS: BP 191/95; TEMP 98; O2SAT 96
--- NOTE | 2024-07-16 12:18 | EKG ---
Test Date: 2024-07-15 Test Time: 19:53:50 Electronics Technology Instructor: ELIAS MEASUREMENT RESULTS: Intervals: Rate: 83 IL: 166 QRSD: 88 QT: 396 QTc: 465 [place]: P: 60 IL: 166 QRS: -13 T: 76 INTERPRETIVE STATEMENTS: Normal sinus rhythm Prolonged QT Abnormal ECG Compared to ECG 01/19/2024 11:04:37 Prolonged QT interval now present Electronically Signed On 07-16-24 12:16:15 CHANGE MANAGEMENT EXPERT by Nathan Rabago
[2024-07-16 14:58] LABS: Hepatitis B Surface Ab - Quant 18.64 mIU/mL (<8.0); Hepatitis B surface AG Interp. Nonreactive (Nonreactive)
[2024-07-16 15:00] LABS: HBsAG Nonreactive Report Report
--- NOTE | 2024-07-20 19:50 | P.DS ---
Admission Date: 07/15/24 Discharge Date: 07/20/24 Disposition: AMA-LEFT AGAINST MEDICAL ADVIC Discharge Condition: FAIR Reason for Admission: Hyperkalemia Brief History of Present Illness: 54-year-old male with a past medical history of, hypertension, hyperlipidemia, TIA, ESRD, insulin dependent diabetes mellitus presents to the emergency room with generalized weakness fatigue and chest discomfort and headache which has been going on for the last 2 to 3 hours and was brought to ER. He is on dialysis ESRD but not has any dialysis for the last 9 days. Patient states that he has been more weak and tired associated with some shortness of breath. Denies any fever or chills. No nausea vomiting or diarrhea. No sick contacts. Patient was assessed in the ER and was found to have hyperkalemia and nephrology was consulted and was admitted for further management and emergent dialysis and further management. Hospital Course: Course and findings Hyperkalemia with EKG changes Antihyperkalemic measures Nephrology consulted Will get an emergent dialysis ESRD Dialysis today Renal parameters monitored Electrolytes monitor and replace accordingly Off dialysis for 9 days Discussed with the patient regarding complaints Nephrology consulted Hypertensive emergency Hydralazine as needed Continue home medications and titrate as needed Antihypertensives titrated Hyperlipidemia Continue statin Diabetes Insulin sliding scale Accu-Chek before every meal and at bedtime Anemia of chronic disease Monitor H&H closely No overt bleeding at this time The patient has been having hyperkalemia and nephrology was consulted and underwent emergent dialysis. Tolerated the dialysis well. Potassium came down. Patient want to go home and left AMA irrespective of make him aware of the consequences and side effects of hyperkalemia. Vital Signs/Physical Exam: Temp Pulse Resp BP Pulse Ox 98 F 87 18 191/95 H 94 07/16/24 05:00 07/16/24 05:00 07/16/24 05:00 07/16/24 05:00 07/16/24 04:42 General: Alert, In no apparent distress, Oriented x3 HEENT: Atraumatic, Normocephalic Neck: Supple Respiratory: Clear to auscultation bilaterally Cardiovascular: Regular rate/rhythm, Normal S1 S2 Capillary refill: <2 Seconds Musculoskeletal: No clubbing Neurological: Normal gait, Normal speech, Normal strength at 5/5 x4 extr Lymphatics: No axilla or inguinal lymphadenopathy Laboratory Data at Discharge: WBC 5.00 thou/uL (4.3-10.9) 07/16/24 05:40 Hgb 10.1 g/dL (13.6-17.9) L D 07/16/24 05:40 Hct 29.5 % (39.6-49.0) L 07/16/24 05:40 Plt Count 151 thou/uL (152-406) L 07/16/24 05:40 PT 11.3 SECONDS (9.4-12.5) 07/15/24 21:02 INR 1.01 07/15/24 21:02 Sodium 138 mEq/L (136-145) 07/16/24 05:40 Potassium 3.1 mEq/L (3.5-5.1) L D 07/16/24 05:40 BUN 56 mg/dL (7-18) H 07/16/24 05:40 Creatinine 9.58 mg/dL (0.70-1.30) H 07/16/24 05:40 Glucose 131 mg/dL (74-106) H 07/16/24 05:40 Magnesium 3.1 mg/dL (1.6-2.4) H 07/15/24 21:02 Total Bilirubin 0.5 mg/dL (0.2-1.0) 07/16/24 05:40 AST < 10 U/L (15-37) L 07/16/24 05:40 ALT < 14 U/L (16-61) L 07/16/24 05:40 Alkaline Phosphatase 63 U/L (45-117) 07/16/24 05:40 Physician Discharge Instructions: Follow-up with dialysis center Follow-up with nephrology as early as possible Diet: Renal Followup: NONE,NONE [Primary Care Provider] - Jeremiah Crawford DO [ACTIVE - CAN ADMIT] - Time spent managing pt's care (in minutes): 48
== END 2024-07-16 06:30 | disposition left against medical advice (07) | DRG 640 ==
LOC: ER 18:55 → ERHOLD 23:37
PROVIDERS: ADMIT Family Medicine; ATTEND Hospitalist
PROC: 5A1D70Z Performance of Urinary Filtration, Intermittent, Less than 6 Hours Per Day (ICD-10-PCS; principal; 2024-07-15)
DX: E87.5 Hyperkalemia (principal); N18.6 End stage renal disease; I13.2 Hypertensive heart and chronic kidney disease with heart failure and with stage 5 chronic kidney disease, or end stage renal disease; I16.1 Hypertensive emergency; I50.9 Heart failure, unspecified; E11.22 Type 2 diabetes mellitus with diabetic chronic kidney disease; E11.42 Type 2 diabetes mellitus with diabetic polyneuropathy; D63.1 Anemia in chronic kidney disease; G25.81 Restless legs syndrome; E78.00 Pure hypercholesterolemia, unspecified; N40.0 Benign prostatic hyperplasia without lower urinary tract symptoms; F17.210 Nicotine dependence, cigarettes, uncomplicated; Z99.2 Dependence on renal dialysis; Z79.4 Long term (current) use of insulin; Z53.29 Procedure and treatment not carried out because of patient's decision for other reasons; Z86.73 Personal history of transient ischemic attack (TIA), and cerebral infarction without residual deficits; Z91.158 Patient's noncompliance with renal dialysis for other reason
CPT/HCPCS: 36415; 71045; 80048; 80053; 80076; 82947; 83735; 83880; 84484; 85025; 85610; 86706; 87340; 90935; 93005; 96365; 96375; 99285; J0612; J1644; J1940; J7613

== ENCOUNTER 2024-12-21 16:58 | Emergency (ER) | payer OTHER ==
--- OUTSIDE RECORDS SUMMARY | 2024-12-21 17:06 | XMS REPORT | Continuity of Care Document ---
Author Name Unknown Address [address] [facility] [place] [address] [facility] Address [address] [facility] [place] [address] Care Team Providers Care Toe Stapler Name Role Phone REENA ASTORGA Primary Care Physician UnavailMICHELLE Ponce Attending Clinician Unavailable Yunier Barrow Attending Clinician Unavailable Rahul Jasmine Attending Clinician Unavailable REENA ASTORGA Attending Clinician Unavailable Doctor Unassigned, Benedict Attending Clinician U desi Ulloa RN, Selene Hill Attending Clinician Unavailthierry Salguero RN, Radu Guadarrama Attending Clinician Unavail able ED MCGOWAN Attending Clinician Unavail able Honey Pierce NP Attending Clinician [phone] Ed Mcgowan DO Attending Clinician Olga SWEET, Guilherme Romero Attending Clinician Pob, [facility] Main Attending Clinician UnavailTrung Glalagher DO Attending Clinician [phone] AGLIECO, TRUNG G Attending Clinician Unavailable STEVE GUERIN Attending Clinician Unavailable STEVE GUERIN Attending Clinician Unavailable Steve Guerin MD Attending Clinician [phone] Andrei Yanes MD Attending Clinician [phone] ANDREI YANES Attending Clinician Unavailable BERENICE ASHER Attending Clinician Unavailab BERENICE Saldaña Attending Clinician Unavailab Jessica Barbosa CRNA Attending Clinician [phone] Patrick Whyte MD Attending Clinicia n Elias SWEET, Geovanna Strong Attending Clinician [phone] Waldo SWEET, Estiven Guadarrama Attending Clinician [phone] LIANA SMITH Attending Clinician Unavailable Magdalene SWEET, Liana Attending Clinician [phone] Michelle Moscoso MD Attending Clinician [phone] DARRION WILKES Attending Clinician Unavailable DARRION WILKES Attending Clinician Unavailable 2, [facility] Attending Clinician Unavailable Trung Crawford DO Attending Clinician [phone] Doctor Unassigned, Benedict Attending Clinician U LOREN Pantoja Attending Clinician Unavailable LOREN YUAN Attending Clinician Unavailable Deanne Gibbons Attending Clinician [phone] GRADY THRASHER Attending Clinician Unavailable Grady Thrasher DO Attending Clinician [phone] Chip Talavera DO Attending Clinician [phone] MARY_S Attending Clinician Unavailable Treasure Hernandez Attending Clinician Deshazo_T Attending Clinician Unavailable Carmen Akhtar MD Attending Clinician [phone] Melony Corado Attending Clinician [phone] DAVIDSON TORRES Attending Clinician Unavailable Davidson Torres MD Attending Clinician [phone] CARMEN AKHTAR Attending Clinician Unava ilable Enoc Vega Attending Clinician [phone] Fortunato Luna Attending Clinician FORTUNATO HEDRICK Attending Clinician Unavailable RUSLAN POSADAS Attending Clinician UnaWILLIAM Goldberg Attending Clinician UnavailWILLIAM Tuttle Attending Clinician Unavaila BENNETT Gonzalez Attending Clinician Unavailable TON GALINDO Attending Clinician UnavailSHELBY Currie Attending Clinician Unavailable MICHELLE MOSCOSO Admitting Clinician Unavailable GUILHERME SHETH Admitting Clinician Unavailab catarina Sheth MD, Guilherme Romero Admitting Clinician BERENICE ASHER Admitting Clinician Unavailab ANDREI Boone Admitting Clinician Unavailable LIANA SMITH Admitting Clinician Unavailable Michelle Moscoso MD Admitting Clinician CATARINA, CHIP Admitting Clinician Unavailable Catarina SORIA Chip Admitting Clinician GAYLORD_S Admitting Clinician Unavailable Deshazo_T Admitting Clinician Unavailable Payers Payer Name Policy Type Policy Number Effective Date Expirati on Date Source [facility] [employer] [place] [id number] 00:00:00 [facility] [id number] 2019 00:00:00 [employer] MEDICARE ADVANTAGE PLAN [id number] 2021 00:00:00 [employer] (MEDICARE REPLACEMENT HMO) [id number] 2020 00:00:00 COMMERCIAL NON-CONTRACT GENERIC [id number] 2020 00:00:00 MEDICARE PART A \\T\\ B [id number] 2021 00:00:00 Problems Condition Name Condition Details Condition Category Status Onset Date Resolution Date Last Treatment Date Treating Clinician Comments Source Hyperkalem ia Hyperkalem ia Disease Active 2023-09 00:00: 00 [facility] ESRD (end stage renal disease) ESRD (end stage renal disease) Disease Active 02-14 00:00: 00 [facility] CKD (chronic kidney disease) stage 5, GFR less than 15 ml/min CKD (chronic kidney disease) stage 5, GFR less than 15 ml/min Disease Active 01-21 00:00: 00 [facility] Encounter for fitting and adjustment of dialysis catheter Encounter for fitting and adjustment of dialysis catheter Disease Active 5-13 00:00: 00 [facility] Localized edema due to fluid overload Localized edema due to fluid overload Disease Active 5-09 00:00: 00 [facility] Insomnia due to medical condition Insomnia due to medical condition Disease Active 5-05 00:00: 00 [facility] Shortness of breath Shortness of breath Disease Active -18 00:00: 00 [facility] Preoperati ve cardiovasc ular examinatio n Preoperati ve cardiovasc ular examinatio n Disease Active 18 00:00: 00 [facility] End stage renal disease End stage renal disease Disease Active 18 00:00: 00 [facility] Coronary atheroscle rosis of [place] coronary artery Coronary atheroscle rosis of [place] coronary artery Disease Active 2- 00:00: 00 [facility] Anemia of chronic disease Anemia of chronic disease Disease Active 18 00:00: 00 [facility] Stage 5 chronic kidney disease Stage 5 chronic kidney disease Disease Recurre nce -18 00:00: 00 [facility] Chronic metabolic acidosis Chronic metabolic acidosis Disease Active 18 00:00: 00 [facility] Nephrogeno us proteinuri a Nephrogeno us proteinuri a Disease Active -18 00:00: 00 [facility] Allergic rhinitis due to pollen Allergic rhinitis due to pollen Disease Active 2022-09 00:00: 00 [facility] Erectile dysfunctio n due to diabetes mellitus Erectile dysfunctio n due to diabetes mellitus Disease Active 03-20 00:00: 00 [facility] Ex-cigaret te smoker Ex-cigaret te smoker Disease Active 03-20 00:00: 00 [facility] Excessive daytime sleepiness Excessive daytime sleepiness Disease Active 2021-0 7-30 00:00: 00 [facility] Chronic arterial ischemic stroke Chronic arterial ischemic stroke Disease Active 624 00:00: 00 [facility] Essential hypertensi on Essential hypertensi on Disease Active 624 00:00: 00 [facility] Neuropathy of both feet Neuropathy of both feet Disease Active 24 00:00: 00 [facility] Neuropathy of both feet Neuropathy of both feet Disease Active 03-04 00:00: 00 [facility] Legal blindness Legal blindness Disease Active 01-22 00:00: 00 [facility] 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, unspecifie d eye 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, unspecifie d eye Disease Active 01-22 00:00: 00 [facility] Hypertensi on Hypertensi on Disease Active 01-22 00:00: 00 [facility] Erectile dysfunctio n Erectile dysfunctio n Disease Active 01-22 00:00: 00 [facility] Constipati on Constipati on Disease Active 01-22 00:00: 00 [facility] Mixed anxiety and depressive disorder Mixed anxiety and depressive disorder Disease Active 01-22 00:00: 00 [facility] Night sweats Night sweats Disease Active 01-22 00:00: 00 [facility] 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, unspecifie d eye 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, unspecifie d eye Disease Active 01-22 00:00: 00 [facility] Abnormal finding on CT scan Abnormal finding on CT scan Disease Active 2019-09 0-12 00:00: 00 [facility] Stroke Stroke Disease Active 2019-09 0-10 00:00: 00 [facility] Uncontroll ed type 2 diabetes mellitus with hyperglyce thalia Uncontroll ed type 2 diabetes mellitus with hyperglyce thalia Disease Active 01-13 00:00: 00 [facility] [id number] Moderate major depression , single episode Problem [facility] [id number] Type 2 diabetes mellitus with other diabetic kidney complicati on Problem [facility] [id number] Type 2 diabetes mellitus with diabetic chronic kidney disease Problem [facility] [id number] Chronic kidney disease, stage 3 unspecifie d Problem [facility] Depression Depression Problem Co mmon [facility] [id number] Current use of insulin Problem [facility] Vitamin D deficiency Vitamin D deficiency Problem [facility] Mixed hyperlipid emia Mixed hyperlipid emia Problem [facility] Anxiety Anxiety Problem [facility] Hyperglyce thalia due to type 2 diabetes mellitus Uncontroll ed type 2 diabetes mellitus with hyperglyce thalia Problem [facility] Hypertensi ve urgency Hypertensi ve urgency Disease Resolve d 12-15 00:00: 00 2021-04-09 00:00:00 2021-04-09 18:42:41 [facility] Supraglott ic abscess Supraglott ic abscess Disease Resolve d 01-08 00:00: 00 2021-04-09 00:00:00 2021-04-09 18:42:48 [facility] Allergies, Adverse Reactions, Alerts Allergy Name Allergy Type Status Severity Reaction(s) Onset Date Inactive Date Treating Clinician Comments Source Amlodipi ne Propensi ty to adverse reaction s Active Diarrhea 2020-09 00:00: 00 severe [facility] AMLODIPI NE DRUG INGREDI Active Diarrhea 2020-09 00:00: 00 [facility] NO KNOWN ALLERGIE S Drug Class Active [facility] Family History Family Member Diagnosis Comments Start Date Stop Date Sourc e Natural father [facility]Drug [facility] Maternal aunt Diabetes [facility] Maternal aunt Hypertension [facility] Maternal grandmother Diabetes [facility] Maternal grandmother Hypertension [facility] Maternal uncle Diabetes [facility] Maternal uncle [facility]pertension [facility] Natural mother [facility] Natural [facility] Hy[facility] Natural mother Stroke Un[facility] Social History Social Habit Start Date Stop Date Quantity Comments Source History of tobacco use Cigarette Smoker [facility] History SDOH Alcohol Frequency [facility] History SDOH Alcohol [facility] SDOH Alcohol Binge [facility] Sexual orientation [facility] Alcoholic beverage intake 2024-02-15 00:00:00 2024-02-15 00:00:00 1.71 /d [facility] Cigarettes smoked current (pack per day) - Reported 2024-02-01 00:00:00 2024-02-01 00:00:00 [facility] Cigarette pack-years 2024-02-01 00:00:00 2024-02-01 00:00:00 [facility] Tobacco use and exposure 2024-02-01 00:00:00 2024-02-01 00:00:00 Smokeless tobacco non-user [facility] Alcohol intake 2023-12-28 00:00:00 2023-12-28 00:00:00 1.71 /d [facility] History of Social function 2023-12-28 00:00:00 2023-12-28 00:00:00 [facility] Exposure to SARS-CoV-2 (event) 2022-10-12 00:00:00 2022-10-22 14:30:00 Not sure [facility] Alcohol Comment 2021-03-04 00:00:00 2021-03-04 00:00:00 was drinking daily, now a couple days a week [facility] Education 2020-12-15 00:00:00 2020-12-15 00:00:00 8 [facility] Smoking Status Start Date Stop Date Source Occasional tobacco smoker 2024-02-01 00:00:00 [facility] Current Smoker 2022-11-22 00:00:00 [facility] Ex-smoker 2021-03-04 00:00:00 2021-03-04 00:00:00 [facility] Medications Ordered Medication Name Filled Medication Name Start Date Stop Date Current Medication? Ordering Clinician Indication Dosage Frequency Signature (SIG) Comments Components Source atorvastati n (LIPITOR) tablet 20 mg 2023-09 03:00: 00 09-09 01:28 :19 No 20mg [facility] mupirocin (BACTROBAN OINT) 2 % oinintment 2023-09 01:04: 23 Yes [facility] carvediloL (COREG) tablet 6.25 mg 2023-09 23:00: 00 09-09 01:28 :19 No 6.25mg 6.25 mg, Oral, BID MEALS, First dose (after last modificati on) on 09/08/24 at 1700, Until Discontinu ed, Routine [facility] latanoprost (XALATAN) 0.005 % ophthalmic drops 1 Drop 2023-09 23:00: 00 09-09 01:28 :19 No 1[drp] 1 Drop, Both Eyes, QPM, First dose on 09/08/24 at 1700, Until Discontinu ed, Routine [facility] sennosides (SENOKOT) tablet 8.6 mg 2023-09 15:00: 00 09-09 01:28 :19 No 8.6mg 8.6 mg, Oral, DAILY, First dose on 09/08/24 at 0900, Until Discontinu ed, Routine [facility] polyethylen e glycol 3350 powder 17 g 2023-09 15:00: 00 09-09 01:28 :19 No 17g 17 g, Oral, DAILY, First dose on 09/08/24 at 0900, Until Discontinu ed, Routine [facility] amLODIPine (NORVASC) tablet 10 mg 2023-09 15:00: 00 09-09 01:28 :19 No 10mg [facility] Sliding Scale Insulin - Lispro (HumaLOG) 2023-09 14:00: 00 09-09 01:28 :19 No Subcutaneo us, TID MEALS+HS, First dose on 09/08/24 at 0800, Until Discontinu ed, Routine [facility] heparin (porcine) injection 5,000 Units 2023-09 14:00: 00 09-09 01:28 :19 No 5000U 5,000 Units, Subcutaneo us, Q12H, First dose on 09/08/24 at 0800, Until Discontinu ed, Routine [facility] calcium acetate(stephen sphat bind) (PHOSLO) capsule 667 mg 2023-09 14:00: 00 09-09 01:28 :19 No 667mg 667 mg, Oral, TID MEALS, First dose on 09/08/24 at 0800, Until Discontinu ed, Routine [facility] sodium bicarbonate (ANTACID (SODIUM BICARBONATE )) tablet 650 mg 2023-09 14:00: 00 09-09 01:28 :19 No 650mg 650 mg, Oral, TID, First dose on 09/08/24 at 0800, Until Discontinu ed, Routine [facility] sodium zirconium cyclosilica te (LOKELMA) 10 gram packet 10 g 2023-09 13:00: 00 09-09 01:28 :19 No 10g 10 g, Oral, TID, First dose on 09/08/24 at 0700, Until Discontinu ed, Routine [facility] carvediloL (COREG) tablet 6.25 mg 2023-09 07:00: 00 09-08 10:07 :26 No 6.25mg 6.25 mg, Oral, BID MEALS, First dose on 09/08/24 at 0100, Until Discontinu ed, Routine [facility] hydralAZINE (APRESOLINE ) injection 10 mg 2023-09 06:56: 11 09-09 01:28 :19 No 10mg 10 mg, Slow IV Push, Q6HPRN, Starting on 09/08/24 at 0056, Until 09/08/24 at 1928, Routine, DBP=>100; SBP=>180 [facility] acetaminoph en (TYLENOL) tablet 650 mg 2023-09 06:49: 31 09-09 01:28 :19 No 650mg [facility] traZODone (DESYREL) tablet 50 mg 2023-09 06:48: 04 09-09 01:28 :19 No 50mg 50 mg, Oral, PRN, Starting on 09/08/24 at 0048, Until 09/08/24 at 1928, Routine, Insomnia [facility] metoprolol tartrate (LOPRESSOR) tablet 25 mg 2023-09 04:15: 00 09-08 04:21 :00 No 25mg 25 mg, Oral, ONCE, 1 dose, On 09/07/24 at 2215, Routine [facility] insulin regular human (HUMULIN R) injection 3 Units 2023-09 04:15: 00 09-08 03:28 :00 No 3U 3 Units, IV Push, ONCE, 1 dose, On 09/07/24 at 2215, Routine, Indication for insulin: Hyperglyce thalia [facility] dextrose 10% (D10W) bolus infusion 125 mL 2023-09 04:14: 36 09-09 01:28 :19 No 125mL 125 mL, Intravenou s, PRN - SEE INSTRUCTIO NS, Administer over 60 Minutes, Other, Administer once if after insulin administra tion, blood glucose is 71-140 mg/dL and patient is unable to eat a 15 g carb snack, Starting on 09/07/24 at 2214, For 1 dose, If patient is able to eat/swallo w, give 15 gram carb snack - Sprite or cranberry juice. [facility] dextrose 50 % in water (D50W) injection 50 mL 2023-09 02:30: 00 09-08 02:42 :00 No 50mL 50 mL, Slow IV Push, ONCE, 1 dose, On 09/07/24 at 2030, BROOKE [facility] sodium zirconium cyclosilica te (LOKELMA) 10 gram packet 10 g 2023-09 02:30: 00 09-08 02:41 :00 No 10g 10 g, Oral, DAILY, 1 dose, First dose on 09/07/24 at 2030, BROOKE [facility] calcium gluconate 1 g in NaCl 50 mL (ISO-OSM) RTU IV infusion 1 g 2023-09 02:08: 48 09-09 01:28 :19 No 1g 1 g, IV Infusion, at 100 mL/hr Administer over 30 Minutes, PRN - SEE INSTRUCTIO NS, Starting on 09/07/24 at 2007, Until 09/08/24 at 192, STAT, Potassium greater than or equal to 6.0 mEq/L with our without EKG changes [facility] glucagon HCL injection 1 mg 2023-09 02:07: 21 09-09 01:28 :19 No 1mg 1 mg, Intramuscu lar, PRN, Starting on 09/07/24 at 2006, Until 09/08/24 at 1928, BROOKE, Low blood sugar, Blood Glucose < or = 70 mg/dL and patient is NPO, unable to swallow or has mental changes. [facility] dextrose 50 % in water (D50W) injection 25 mL 2023-09 02:07: 21 09-09 01:28 :19 No 25mL 25 mL, Slow IV Push, PRN, Starting on 09/07/24 at 2006, Until 09/08/24 at 1928, BROOKE, Blood Glucose < or = 70 mg/dL and patient is NPO, unable to swallow or has mental status changes. [facility] sodium chloride (NS) injection 5 mL 2023-09 00:50: 24 09-09 01:28 :19 No 5mL 5 mL, Intravenou s, PRN, Starting on 09/07/24 at 1850, Until 09/08/24 at 1928, Routine, IV line flushing [facility] HYDROcodone -acetaminop hen (NORCO 5) 5-325 mg tablet 1 tablet 04-03 08:45: 00 04-03 08:44 :00 No 1{tbl} 1 tablet, Oral, ONCE, 1 dose, On Mon04/03/24 at 0345, BROOKE [facility] heparin (1,000 unit/mL, 10 mL vial) 02-28 13:20: 00 02-28 14:12 :12 No ONCE INTRA PROCEDURE, Starting on Kaylie 02/29/24 at 0820, Until Kaylie 02/29/24 at 0912, Routine, [facility] 5,[facility] unit/mL injection 02-28 13:00: 00 02-28 14:22 :28 No PRN, Starting on Kaylie 02/29/24 at 0800, Until Kaylie 02/29/24 at 0922, Routine, Intra-op [facility] bupivacaine (preserv free) (SENSORCAIN E MPF) 0.25 % (2.5 mg/mL) injection 02-28 12:59: 00 02-28 14:22 :28 No PRN, Starting on Kaylie 02/29/24 at 0759, Until Kaylie 02/29/24 at 0922, Routine, Intra-op [facility] NaCl 0.9% (NS) IV infusion 02-28 12:59: 00 02-28 14:22 :28 No CONTINUOUS PRN, Starting on Kaylie 02/29/24 at 0759, Until Kaylie 02/29/24 at 0922, Routine, Intra-op [facility] ceFAZolin (ANCEF) injection 02-28 12:51: 00 02-28 14:12 :12 No Slow IV Push, ONCE INTRA PROCEDURE, Starting on Kaylie 02/29/24 at 0751, Until Kaylie 02/29/24 at 0912, BROOKE, Intra-op [facility] lactated ringers IV infusion 02-28 12:39: 00 02-28 14:12 :12 No IV Infusion, CONTINUOUS PRN, Starting on Kaylie 02/29/24 at 0739, Until Kaylie 02/29/24 at 0912, Routine, Intra-op [facility] midazolam (VERSED) injection 02-28 12:26: 00 02-28 14:12 :12 No IV Push, ONCE INTRA PROCEDURE, Starting on Kaylie 02/29/24 at 0726, Until Kaylie 02/29/24 at 0912, Routine, Intra-op [facility] NaCl 0.9% (NS) IV infusion 1,000 mL 02-28 11:45: 00 02-28 17:50 :30 No 1000mL at 42 mL/hr, IV Infusion, CONTINUOUS , Starting on Kaylie 02/29/24 at 0645, Until Kaylie 02/29/24 at 1250, Routine, DSU Pre-op [facility] atorvastati n 20 mg tablet 02-28 10:50: 29 Yes 20mg Take 1 tablet by mouth at bedtime. [facility] bimatoprost (LUMIGAN) 0.01 % ophthalmic drops 02-28 10:50: 29 Yes 1[drp] Place 1 Drop in each eye in the morning. [facility] calcium acetate,stephen sphat bind, 667 mg capsule 02-28 10:50: 29 Yes 667mg Take 1 capsule by mouth in the morning and 1 capsule at noon and 1 capsule in the evening. Take with meals. [facility] sodium bicarbonate 650 mg tablet 02-28 10:50: 29 Yes TAKE 1 TABLET BY MOUTH IN THE MORNING AND 1 AT NOON AND 1 IN THE EVENING WITH MEALS [facility] atenoloL 25 mg tablet 02-28 10:50: 29 09-08 00:00 :00 No 25mg Take 1 tablet by mouth at bedtime. [facility] atorvastati n 20 mg tablet 02-14 14:28: 43 Yes 20mg Take 1 tablet by mouth at bedtime. [facility] bimatoprost (LUMIGAN) 0.01 % ophthalmic drops 02-14 14:28: 43 Yes 1[drp] Place 1 Drop in each eye in the morning. [facility] atenoloL 25 mg tablet 02-14 14:28: 43 Yes 25mg Take 1 tablet by mouth at bedtime. [facility] calcium acetate,stephen sphat bind, 667 mg capsule 02-14 14:28: 43 Yes 667mg Take 1 capsule by mouth in the morning and 1 capsule at noon and 1 capsule in the evening. Take with meals. [facility] sodium bicarbonate 650 mg tablet 02-14 14:28: 43 Yes TAKE 1 TABLET BY MOUTH IN THE MORNING AND 1 AT NOON AND 1 IN THE EVENING WITH MEALS [facility] atorvastati n 20 mg tablet 02-14 13:53: 20 Yes 20mg Take 1 tablet by mouth at bedtime. [facility] bimatoprost (LUMIGAN) 0.01 % ophthalmic drops 02-14 13:53: 20 Yes 1[drp] Place 1 Drop in each eye in the morning. [facility] atenoloL 25 mg tablet 02-14 13:53: 20 Yes 25mg Take 1 tablet by mouth at bedtime. [facility] calcium acetate,stephen sphat bind, 667 mg capsule 02-14 13:53: 20 Yes 667mg Take 1 capsule by mouth in the morning and 1 capsule at noon and 1 capsule in the evening. Take with meals. [facility] sodium bicarbonate 650 mg tablet 02-14 13:53: 20 Yes TAKE 1 TABLET BY MOUTH IN THE MORNING AND 1 AT NOON AND 1 IN THE EVENING WITH MEALS [facility] sodium bicarbonate 650 mg tablet 02-14 08:35: 34 Yes TAKE 1 TABLET BY MOUTH IN THE MORNING AND 1 AT NOON AND 1 IN THE EVENING WITH MEALS [facility] atorvastati n 20 mg tablet 02-14 08:34: 36 Yes 20mg Take 1 tablet by mouth at bedtime. [facility] bimatoprost (LUMIGAN) 0.01 % ophthalmic drops 02-14 08:34: 36 Yes 1[drp] Place 1 Drop in each eye in the morning. [facility] atenoloL 25 mg tablet 02-14 08:34: 36 Yes 25mg Take 1 tablet by mouth at bedtime. [facility] calcium acetate,stephen sphat bind, 667 mg capsule 02-14 08:34: 36 Yes 667mg Take 1 capsule by mouth in the morning and 1 capsule at noon and 1 capsule in the evening. Take with meals. [facility] HYDROcodone -acetaminop hen 5-325 mg tablet 02-08 00:00: 00 09-08 00:00 :00 No 1{tbl} Take 1 tablet by mouth. [facility] HYDROcodone -acetaminop hen (NORCO) 10-325 mg tablet 1 tablet 02-01 15:45: 57 02-01 20:49 :19 No 1{tbl} [facility] HYDROcodone -acetaminop hen (NORCO 5) 5-325 mg tablet 1 tablet 02-01 15:45: 57 02-01 16:24 :00 No 1{tbl} 1 tablet, Oral, PRN, 1 dose, Starting on Mon02/02/24 at 1045, Until Mon02/02/24 at 1124, Routine, Pain (scale 4-6), DSU Recovery [facility] acetaminoph en (TYLENOL) tablet 650 mg 02-01 15:45: 57 02-01 20:49 :19 No 650mg [facility] bupivacaine (preserv free) (SENSORCAIN E MPF) 0.25 % (2.5 mg/mL) 30 mL, lidocaine-e pinephrine (XYLOCAINE W/EPINEPHRI NE) 1 %-1:200,000 30 mL 02-01 15:05: 00 02-01 20:49 :19 No PRN, Starting on Mon02/02/24 at 1005, Intra-op [facility] NaCl 0.9% (NS) IV infusion 02-01 15:05: 00 02-01 20:49 :19 No CONTINUOUS PRN, Starting on Mon02/02/24 at 1005, Until Mon02/02/24 at 1549, Routine, Intra-op [facility] heparin lock flush (HEPARIN LOCKFLUSH(P ORCINE)(PF) ) 100 unit/mL injection 02-01 15:02: 00 02-01 20:49 :19 No PRN, Starting on Mon02/02/24 at 1002, Until Mon02/02/24 at 1549, Routine, Intra-op [facility] NaCl 0.9% (NS) IV infusion 1,000 mL 02-01 14:30: 00 02-01 20:49 :19 No 1000mL at 42 mL/hr, IV Infusion, CONTINUOUS , Starting on Mon02/02/24 at 0930, Until Mon02/02/24 at 1549, Routine, DSU Pre-op [facility] HYDROcodone -acetaminop hen 5-325 mg tablet 02-01 00:00: 00 02-09 04:59 :00 No [id number] 1{tbl} Take 1 tablet by mouth every 6 (six) hours as needed for Pain (scale 7-10) for up to 7 days. Indication s: acute pain [facility] methocarbam oL 500 mg tablet 01-18 00:00: 00 Yes 1000mg Take 2 tablets by mouth 4 (four) times daily. As needed [facility] bumetanide 2 mg tablet 01-17 00:00: 00 09-08 00:00 :00 No 2mg Take 1 tablet by mouth ONCE PRN (Lower extremity swelling). [facility] bimatoprost (LUMIGAN) 0.01 % ophthalmic drops 12-27 09:08: 29 Yes 1[drp] Place 1 Drop in each eye in the morning. [facility] atenoloL 25 mg tablet 12-27 09:08: 29 Yes 25mg Take 1 tablet by mouth at bedtime. [facility] calcium acetate,stephen sphat bind, 667 mg capsule 12-27 09:08: 29 Yes 667mg Take 1 capsule by mouth in the morning and 1 capsule at noon and 1 capsule in the evening. Take with meals. [facility] sodium bicarbonate 650 mg tablet 12-27 09:08: 29 Yes TAKE 1 TABLET BY MOUTH IN THE MORNING AND 1 AT NOON AND 1 IN THE EVENING WITH MEALS [facility] liraglutide (VICTOZA 2-CUCO) 0.6 mg/0.1 mL (18 mg/3 mL) injection 12-27 09:08: 29 01-21 00:00 :00 No 1.2mg inject 1.2 mg under the skin. [facility] amLODIPine 10 mg tablet 12-21 00:00: 00 12-22 04:59 :00 No 10mg Take 1 tablet by mouth in the morning. [facility] traZODone 50 mg tablet 12-21 00:00: 00 12-22 04:59 :00 No 50mg Take 1 tablet by mouth as needed. [facility] latanoprost 0.005 % ophthalmic drops 12-01 00:00: 00 Yes 1[drp] Place 1 Drop in both eyes every evening. [facility] hydralAZINE (APRESOLINE ) injection 10 mg 09-16 02:15: 00 09-16 02:12 :00 No 10mg 10 mg, Slow IV Push, ONCE, 1 dose, On Mon09/15/23 at 2015, [facility] fluticasone propionate 50 mcg/actuati on nasal spray 2022-09 00:00: 00 08-10 05:59 :00 No 1{spray } Use 1 [place] in each nostril. [facility] diphenhydrA MINE (BENADRYL) tablet 50 mg 10-22 20:30: 00 10-22 20:29 :00 No 50mg 50 mg, Oral, ONCE, 1 dose, On 10/22/22 at 1430, [facility] Victoza 18 MG/3ML Victoza 18 MG/3ML 03-02 00:00: 00 04-01 00:00 :00 No QD Victoza 18 MG/3ML Vitamin D3 66350 UNIT Vitamin D3 34873 UNIT 03-01 00:00: 00 05-30 00:00 :00 No 1{capsu le} Vitamin D3 11110 UNIT cloNIDine (CATAPRES) tablet 0.2 mg 01-06 13:00: 00 Yes .2mg 0.2 mg, Oral, TID, First dose on Kaylie 01/06/22 at 0800, Until Discontinu ed, Routine [facility] Lisinopril- hydroCHLORO thiazide 20-12.5 MG Lisinopril- hydroCHLORO thiazide 20-12.5 MG 01-04 00:00: 00 No 1{table t} QD Lisinopril -hydroCHLO ROthiazide 20-12.5 MG metFORMIN HCl ER 500 MG metFORMIN HCl ER 500 MG - 00:00: 00 No BID metFORMIN HCl ER 500 MG amLODIPine Besylate 5 MG amLODIPine Besylate 5 MG 01-04 00:00: 00 No 1{table t} QD amLODIPine Besylate 5 MG lancets (FREESTYLE LANCETS) 28 gauge Misc 3-28 00:00: 00 Yes [id number] USE ONE LANCET TO CHECK BLOOD GLUCOSE 2 TO 3 TIMES A DAY [facility] blood sugar diagnostic strip 09-21 00:00: 00 Yes [id number] Check sugars 2-3 times a day. Dx Code E11.9. Brand per insurance. Patient has uncontroll ed diabetes and needs to check sugars at least 2 times a day. ACCU-CHEK- same brand as meter [facility] Blood-Gluco se Meter Kit 09-21 00:00: 00 Yes [id number] Check sugars 2-3 times a day. Dx Code E11.9. Brand per insurance. Patient has uncontroll ed diabetes and needs to check sugars at least 2 times a day. ACCU-CHEK [facility] Lancets Misc 09-21 00:00: 00 Yes [id number] Check sugars 2-3 times a day. Dx Code E11.9. Brand per insurance. Patient has uncontroll ed diabetes and needs to check sugars at least 2 times a day. ACCU-CHEK- same brand as meter [facility] blood sugar diagnostic strip 09-21 00:00: 00 Yes [id number] Check sugars 2-3 times a day. Dx Code E11.9. Brand per insurance. Patient has uncontroll ed diabetes and needs to check sugars at least 2 times a day. ACCU-CHEK- same brand as meter [facility] Blood-Gluco se Meter Kit 09-21 00:00: 00 Yes [id number] Check sugars 2-3 times a day. Dx Code E11.9. Brand per insurance. Patient has uncontroll ed diabetes and needs to check sugars at least 2 times a day. ACCU-CHEK [facility] sildenafiL (VIAGRA) 100 mg tablet 09-17 00:00: 00 Yes [id number] 100mg Take 1 tablet by mouth daily. [facility] sildenafiL (VIAGRA) 100 mg tablet 09-17 00:00: 00 Yes [id number] 100mg Take 1 tablet by mouth daily. [facility] metformin ER 500 mg 24 hr tablet 2020-09 00:00: 00 Yes [id number] 1000mg Take 2 tablets by mouth 2 (two) times daily. [facility] metformin ER 500 mg 24 hr tablet 2020-09 00:00: 00 Yes [id number] 1000mg Take 2 tablets by mouth 2 (two) times daily. [facility] metformin ER 500 mg 24 hr tablet 2020-09 00:00: 00 Yes [id number] 1000mg Take 2 tablets by mouth 2 (two) times daily. [facility] metformin ER 500 mg 24 hr tablet 2020-09 00:00: 00 Yes [id number] 1000mg Take 2 tablets by mouth 2 (two) times daily. [facility] lisinopriL- hydrochloro thiazide 20-25 mg per tablet 2020-09 00:00: 00 Yes [id number] 1{tbl} Take 1 tablet by mouth daily. [facility] metformin ER 500 mg 24 hr tablet 2020-09 00:00: 00 02-28 00:00 :00 No [id number] 1000mg Take 2 tablets by mouth 2 (two) times daily. [facility] doxazosin 2 mg tablet 2020-09 00:00: 00 01-21 00:00 :00 No [id number] 2mg Take 1 tablet by mouth at bedtime. [facility] bimatoprost (LUMIGAN) 0.01 % ophthalmic drops 05-06 11:38: 50 Yes 1[drp] Place 1 Drop in each eye in the morning. [facility] atorvastati n 20 mg tablet 04-09 08:46: 06 Yes 20mg Take 1 tablet by mouth at bedtime. [facility] Insulin Regular Human (NOVOLIN R FLEXPEN) 100 unit/mL (3 mL) InPn 04-09 00:00: 00 01-21 00:00 :00 No [id number] Check blood sugars fasting before meals and 2 hours after 1 meal of the day. If sugars are 180-200 take 6 units of insulin, 201-250 take 8 units, 251-300 take 10 units, 301-350 take 12 units, 351-400 take 14 units, 401-450 take 16 units, 451-500 take 18 units, if >500 take 20 units, recheck in 2 hours. If still high call the clinic. [facility] Blood-Gluco se Meter Kit 04-09 00:00: 00 09-21 00:00 :00 No [id number] Check sugars 2-3 times a day. Dx Code E11.9. Brand per insurance. Patient has uncontroll ed diabetes and needs to check sugars at least 2 times a day. [facility] blood sugar diagnostic strip 04-09 00:00: 00 09-21 00:00 :00 No [id number] Check sugars 2-3 times a day. Dx Code E11.9. Brand per insurance. Patient has uncontroll ed diabetes and needs to check sugars at least 2 times a day. [facility] Lancets Misc 04-09 00:00: 00 09-21 00:00 :00 No [id number] Check sugars 2-3 times a day. Dx Code E11.9. Brand per insurance. Patient has uncontroll ed diabetes and needs to check sugars at least 2 times a day. [facility] sildenafiL (VIAGRA) 100 mg tablet 04-09 00:00: 00 09-17 00:00 :00 No [id number] 100mg Take 1 tablet by mouth daily. [facility] ergocalcife rol, vitamin d2, (VITAMIN D2) 1,250 mcg (50,000 unit) capsule 03-08 00:00: 00 02-28 00:00 :00 No [id number] 67452T Take 1 capsule by mouth weekly. [facility] insulin syr/ndl U100 half adri 0.3 mL 30 gauge x 1/2" Syrg 03-08 00:00: 00 01-21 00:00 :00 No [id number] 1{syrin ge} 1 Syringe 2 (two) times daily. [facility] insulin glargine (LANTUS U-100 INSULIN) 100 unit/mL injection 03-04 00:00: 00 01-21 00:00 :00 No [id number] 20U inject 20 Units under the skin daily. [facility] prednisoLON E acetate 1 % ophthalmic suspension drops 12-18 00:00: 00 Yes 1[drp] Place 1 Drop in both eyes in the morning. [facility] metFORMIN HCl 500 MG metFORMIN HCl [...] t} QD Lisinopril 20 MG Vitamin D3 83836 UNIT Vitamin D3 53024 UNIT No 1{capsu le} Vitamin D3 61271 UNIT Lisinopril 20 MG Lisinopril 20 MG No 1{table t} QD Lisinopril 20 MG Victoza 18 MG/3ML Victoza 18 MG/3ML No QD Victoza 18 MG/3ML Vitamin D3 62142 UNIT Vitamin D3 78793 UNIT No 1{capsu le} Vitamin D3 91739 UNIT amLODIPine Besylate 5 MG amLODIPine Besylate [...] Atorvastat in Calcium 20 MG Vitamin D3 07350 UNIT Vitamin D3 93784 UNIT No 1{capsu le} Vitamin D3 62945 UNIT Lisinopril- hydroCHLORO thiazide 20-12.5 MG Lisinopril- [...] Atorvastat in Calcium 20 MG Vitamin D3 06728 UNIT Vitamin D3 27661 UNIT No 1{capsu le} Vitamin D3 04271 UNIT Lisinopril- hydroCHLORO thiazide 20-12.5 MG Lisinopril- [...] No amLODIPine Besylate 5 MG Vitamin D3 04448 UNIT Vitamin D3 61820 UNIT No 1{capsu le} Vitamin D3 56019 UNIT Atorvastati n Calcium 20 MG Atorvastati [...] - single dose syringe 2022-06-16 08:58:00 Completed [facility] Flucelvax - single dose syringe Flucelvax - single dose syringe 2022-06-16 08:58:00 Completed [facility] Flucelvax - single dose syringe Flucelvax - single dose syringe 2022-06-16 08:58:00 Completed [facility] Pneumococcal 15 Conjugate, PCV15 (Vaxneuvance) 2022-01-04 00:00:00 Completed TDAP 2022-01-04 00:00:00 Completed SARS-COV-2 COVID-19 VACCINE - (MODERNA) 2021-11-04 00:00:00 Completed SARS-COV-2 COVID-19 MODERNA 12+ YRS VACCINE 2020-12-06 00:00:00 Completed SARS-COV-2 COVID-19 MODERNA VACCINE 2020-12-06 00:00:00 Completed [facility] SARS-COV-2 COVID-19 MODERNA VACCINE 2020-12-06 00:00:00 Completed [facility] SARS-COV-2 COVID-19 MODERNA VACCINE 2020-12-06 00:00:00 Completed [facility] SARS-COV-2 COVID-19 MODERNA 12+ YRS VACCINE 2020-12-06 00:00:00 Completed [facility] SARS-COV-2 COVID-19 MODERNA 12+ YRS VACCINE 2020-12-06 00:00:00 Completed [facility] SARS-COV-2 COVID-19 MODERNA 12+ YRS VACCINE 2020-11-08 00:00:00 Completed [facility] SARS-COV-2 COVID-19 MODERNA VACCINE 2020-11-08 00:00:00 Completed [facility] SARS-COV-2 COVID-19 MODERNA VACCINE 2020-11-08 00:00:00 Completed [facility] SARS-COV-2 COVID-19 MODERNA VACCINE 2020-11-08 00:00:00 Completed [facility] SARS-COV-2 COVID-19 MODERNA 12+ YRS VACCINE 2020-11-08 00:00:00 Completed [facility] SARS-COV-2 COVID-19 MODERNA 12+ YRS VACCINE 2020-11-08 00:00:00 Completed [facility] SARS-COV-2 COVID-19 MODERNA 12+ YRS VACCINE Unknown Completed [facility] Pneumococcal 15 Conjugate, PCV15 (Vaxneuvance) Unknown Completed [facility] TDAP Unknown Completed [facility] SARS-COV-2 COVID-19 MODERNA 12+ YRS VACCINE Unknown Completed [facility] Pneumococcal 15 Conjugate, PCV15 (Vaxneuvance) Unknown Completed [facility] TDAP Unknown Completed [facility] SARS-COV-2 COVID-19 MODERNA 12+ YRS VACCINE Unknown Completed [facility] Pneumococcal 15 Conjugate, PCV15 (Vaxneuvance) Unknown Completed [facility] TDAP Unknown Completed [facility] SARS-COV-2 COVID-19 MODERNA 12+ YRS VACCINE Unknown Completed [facility] Pneumococcal 15 Conjugate, PCV15 (Vaxneuvance) Unknown Completed [facility] TDAP Unknown Completed [facility] SARS-COV-2 COVID-19 MODERNA 12+ YRS VACCINE Unknown Completed [facility] Pneumococcal 15 Conjugate, PCV15 (Vaxneuvance) Unknown Completed [facility] TDAP Unknown Completed [facility] SARS-COV-2 COVID-19 MODERNA 12+ YRS VACCINE Unknown Completed [facility] Pneumococcal 15 Conjugate, PCV15 (Vaxneuvance) Unknown Completed [facility] TDAP Unknown Completed [facility] SARS-COV-2 COVID-19 MODERNA 12+ YRS VACCINE Unknown Completed [facility] Pneumococcal 15 Conjugate, PCV15 (Vaxneuvance) Unknown Completed [facility] TDAP Unknown Completed [facility] SARS-COV-2 COVID-19 MODERNA 12+ YRS VACCINE Unknown Completed [facility] Pneumococcal 15 Conjugate, PCV15 (Vaxneuvance) Unknown Completed [facility] TDAP Unknown Completed [facility] SARS-COV-2 COVID-19 MODERNA 12+ YRS VACCINE Unknown Completed [facility] Pneumococcal 15 Conjugate, PCV15 (Vaxneuvance) Unknown Completed [facility] TDAP Unknown Completed [facility] SARS-COV-2 COVID-19 MODERNA 12+ YRS VACCINE Unknown Completed [facility] Pneumococcal 15 Conjugate, PCV15 (Vaxneuvance) Unknown Completed [facility] TDAP Unknown Completed [facility] SARS-COV-2 COVID-19 MODERNA 12+ YRS VACCINE Unknown Completed [facility] Pneumococcal 15 Conjugate, PCV15 (Vaxneuvance) Unknown Completed [facility] TDAP Unknown Completed [facility] SARS-COV-2 COVID-19 MODERNA 12+ YRS VACCINE Unknown Completed [facility] Pneumococcal 15 Conjugate, PCV15 (Vaxneuvance) Unknown Completed [facility] TDAP Unknown Completed [facility] SARS-COV-2 COVID-19 MODERNA 12+ YRS VACCINE Unknown Completed [facility] Pneumococcal 15 Conjugate, PCV15 (Vaxneuvance) Unknown Completed [facility] TDAP Unknown Completed [facility] SARS-COV-2 COVID-19 MODERNA 12+ YRS VACCINE Unknown Completed [facility] Pneumococcal 15 Conjugate, PCV15 (Vaxneuvance) Unknown Completed [facility] TDAP Unknown Completed [facility] SARS-COV-2 COVID-19 MODERNA 12+ YRS VACCINE Unknown Completed [facility] Pneumococcal 15 Conjugate, PCV15 (Vaxneuvance) Unknown Completed [facility] TDAP Unknown Completed [facility] SARS-COV-2 COVID-19 MODERNA 12+ YRS VACCINE Unknown Completed [facility] Pneumococcal 15 Conjugate, PCV15 (Vaxneuvance) Unknown Completed [facility] TDAP Unknown Completed [facility] SARS-COV-2 COVID-19 MODERNA 12+ YRS VACCINE Unknown Completed [facility] Pneumococcal 15 Conjugate, PCV15 (Vaxneuvance) Unknown Completed [facility] TDAP Unknown Completed [facility] SARS-COV-2 COVID-19 MODERNA 12+ YRS VACCINE Unknown Completed [facility] Pneumococcal 15 Conjugate, PCV15 (Vaxneuvance) Unknown Completed [facility] TDAP Unknown Completed [facility] SARS-COV-2 COVID-19 MODERNA 12+ YRS VACCINE Unknown Completed [facility] Pneumococcal 15 Conjugate, PCV15 (Vaxneuvance) Unknown Completed [facility] TDAP Unknown Completed [facility] SARS-COV-2 COVID-19 MODERNA 12+ YRS VACCINE Unknown Completed [facility] SARS-COV-2 COVID-19 MODERNA 12+ YRS VACCINE Unknown Completed [facility] SARS-COV-2 COVID-19 MODERNA 12+ YRS VACCINE Unknown Completed [facility] SARS-COV-2 COVID-19 MODERNA 12+ YRS VACCINE Unknown Completed [facility] SARS-COV-2 COVID-19 MODERNA 12+ YRS VACCINE Unknown Completed [facility] SARS-COV-2 COVID-19 MODERNA 12+ YRS VACCINE Unknown Completed [facility] Pneumococcal 15 Conjugate, PCV15 (Vaxneuvance) Unknown Completed [facility] TDAP Unknown Completed [facility] SARS-COV-2 COVID-19 MODERNA 12+ YRS VACCINE Unknown Completed [facility] Pneumococcal 15 Conjugate, PCV15 (Vaxneuvance) Unknown Completed [facility] TDAP Unknown Completed [facility] Pneumococcal 15 Conjugate, PCV15 (Vaxneuvance) Unknown Completed [facility] TDAP Unknown Completed [facility] SARS-COV-2 COVID-19 MODERNA 12+ YRS VACCINE Unknown Completed [facility] SARS-COV-2 COVID-19 VACCINE - (MODERNA) Unknown Completed [facility] Pneumococcal 15 Conjugate, PCV15 (Vaxneuvance) Unknown Completed [facility] TDAP Unknown Completed [facility] SARS-COV-2 COVID-19 MODERNA 12+ YRS VACCINE Unknown Completed [facility] Pneumococcal 15 Conjugate, PCV15 (Vaxneuvance) Unknown Completed [facility] TDAP Unknown Completed [facility] Flucelvax - single dose syringe Flucelvax - single dose syringe Unknown Completed [facility] Flucelvax - single dose syringe Flucelvax - single dose syringe Unknown Completed [facility] Vital Signs Vital Name Observation Time Observation Value Comments S ource Systolic blood pressure 2024-09-08 21:51:00 156 mm[Hg] [facility] Diastolic blood pressure 2024-09-08 21:51:00 95 mm[Hg] [facility] Heart rate 2024-09-08 21:51:00 89 /min [facility] Body temperature 2024-09-08 21:51:00 36.17 Kristal [facility] Oxygen saturation in Arterial blood by Pulse oximetry 2024-09-08 21:51:00 94 /min [facility] Respiratory rate 2024-09-08 06:32:00 16 /min [facility] Body weight 2024-09-08 06:32:00 73.483 kg [facility] BMI 2024-09-08 06:32:00 25.37 kg/m2 [facility] Body height 2024-09-08 01:14:19 170.2 cm [facility] Systolic blood pressure 2024-07-15 19:36:00 152 mm[Hg] [facility] Diastolic blood pressure 2024-07-15 19:36:00 83 mm[Hg] [facility] Heart rate 2024-07-15 19:36:00 82 /min [facility] Body temperature 2024-07-15 19:36:00 37.28 Kristal [facility] Respiratory rate 2024-07-15 19:36:00 17 /min [facility] Body height 2024-07-15 19:36:00 172.7 cm [facility] Body weight 2024-07-15 19:36:00 72.576 kg [facility] BMI 2024-07-15 19:36:00 24.33 kg/m2 [facility] Oxygen saturation in Arterial blood by Pulse oximetry 2024-07-15 19:36:00 99 /min [facility] Systolic blood pressure 2024-04-03 11:00:00 162 mm[Hg] [facility] Diastolic blood pressure 2024-04-03 11:00:00 93 mm[Hg] [facility] Heart rate 2024-04-03 11:00:00 81 /min [facility] Body temperature 2024-04-03 11:00:00 37.22 Kristal [facility] Respiratory rate 2024-04-03 11:00:00 13 /min [facility] Oxygen saturation in Arterial blood by Pulse oximetry 2024-04-03 11:00:00 98 /min [facility] Body height 2024-04-03 08:31:00 172.7 cm [facility] Body weight 2024-04-03 08:31:00 76.204 kg [facility] BMI 2024-04-03 08:31:00 25.54 kg/m2 [facility] Systolic blood pressure 2024-03-28 20:56:00 157 mm[Hg] [facility] Diastolic blood pressure 2024-03-28 20:56:00 90 mm[Hg] [facility] Heart rate 2024-03-28 20:53:00 104 /min [facility] Respiratory rate 2024-03-28 20:53:00 20 /min [facility] Body height 2024-03-28 20:53:00 172.7 cm [facility] Body weight 2024-03-28 20:53:00 70.308 kg [facility] BMI 2024-03-28 20:53:00 23.57 kg/m2 [facility] Oxygen saturation in Arterial blood by Pulse oximetry 2024-03-28 20:53:00 98 /min [facility] Heart rate 2024-02-29 14:50:00 70 /min [facility] Respiratory rate 2024-02-29 14:50:00 14 /min [facility] Oxygen saturation in Arterial blood by Pulse oximetry 2024-02-29 14:50:00 99 /min [facility] Systolic blood pressure 2024-02-29 14:45:00 144 mm[Hg] [facility] Diastolic blood pressure 2024-02-29 14:45:00 80 mm[Hg] [facility] Body temperature 2024-02-29 11:52:00 36.61 Kristal [facility] Body weight 2024-02-15 19:00:00 70.761 kg [facility] BMI 2024-02-15 19:00:00 23.72 kg/m2 [facility] Heart rate 2024-02-29 14:50:00 70 /min [facility] Respiratory rate 2024-02-29 14:50:00 14 /min [facility] Oxygen saturation in Arterial blood by Pulse oximetry 2024-02-29 14:50:00 99 /min [facility] Systolic blood pressure 2024-02-29 14:45:00 144 mm[Hg] [facility] Diastolic blood pressure 2024-02-29 14:45:00 80 mm[Hg] [facility] Body temperature 2024-02-29 11:52:00 36.61 Kristal [facility] Body weight 2024-02-15 19:00:00 70.761 kg [facility] BMI 2024-02-15 19:00:00 23.72 kg/m2 [facility] Respiratory rate 2024-02-29 14:09:00 20 /min [facility] Systolic blood pressure 2024-02-15 18:53:00 154 mm[Hg] [facility] Diastolic blood pressure 2024-02-15 18:53:00 88 mm[Hg] [facility] Heart rate 2024-02-15 18:53:00 89 /min [facility] Body temperature 2024-02-15 18:51:00 36.56 Kristal [facility] Respiratory rate 2024-02-15 18:51:00 18 /min [facility] Body height 2024-02-15 18:51:00 172.7 cm [facility] Body weight 2024-02-15 18:51:00 70.761 kg [facility] BMI 2024-02-15 18:51:00 23.72 kg/m2 [facility] Oxygen saturation in Arterial blood by Pulse oximetry 2024-02-15 18:51:00 97 /min [facility] Systolic blood pressure 2024-02-15 13:37:00 175 mm[Hg] [facility] [place] Diastolic blood pressure 2024-02-15 13:37:00 102 mm[Hg] [facility] [place] Heart rate 2024-02-15 13:37:00 89 /min [facility] [place] Oxygen saturation in Arterial blood by Pulse oximetry 2024-02-15 13:37:00 100 /min [facility] [place] Body temperature 2024-02-15 13:32:00 35.33 Kristal [facility] [place] Body height 2024-02-15 13:32:00 172.7 cm [facility] [place] Body weight 2024-02-15 13:32:00 70.308 kg [facility] [place] BMI 2024-02-15 13:32:00 23.57 kg/m2 [facility] [place] Systolic blood pressure 2024-02-03 23:48:00 126 mm[Hg] [facility] [place] Diastolic blood pressure 2024-02-03 23:48:00 75 mm[Hg] [facility] [place] Heart rate 2024-02-03 23:48:00 72 /min [facility] [place] Body temperature 2024-02-03 23:48:00 36.72 Kristal [facility] [place] Respiratory rate 2024-02-03 23:48:00 16 /min [facility] [place] Body height 2024-02-03 23:48:00 172.7 cm [facility] [place] Body weight 2024-02-03 23:48:00 71.668 kg [facility] [place] BMI 2024-02-03 23:48:00 24.02 kg/m2 [facility] [place] Oxygen saturation in Arterial blood by Pulse oximetry 2024-02-03 23:48:00 99 /min [facility] [place] Heart rate 2024-02-02 17:41:00 66 /min [facility] [place] Oxygen saturation in Arterial blood by Pulse oximetry 2024-02-02 17:41:00 95 /min [facility] [place] Systolic blood pressure 2024-02-02 17:39:00 113 mm[Hg] [facility] [place] Diastolic blood pressure 2024-02-02 17:39:00 69 mm[Hg] [facility] [place] Respiratory rate 2024-02-02 17:39:00 10 /min [facility] [place] Body temperature 2024-02-02 13:21:00 36.56 Kristal [facility] [place] Body height 2024-02-01 14:29:00 172.7 cm [facility] [place] Body weight 2024-02-01 14:29:00 68.9 kg [facility] [place] BMI 2024-02-01 14:29:00 23.10 kg/m2 [facility] [place] Heart rate 2024-02-02 16:17:00 65 /min [facility] [place] Respiratory rate 2024-02-02 16:17:00 9 /min [facility] [place] Oxygen saturation in Arterial blood by Pulse oximetry 2024-02-02 16:17:00 100 /min [facility] [place] Systolic blood pressure 2024-02-02 16:13:00 126 mm[Hg] [facility] [place] Diastolic blood pressure 2024-02-02 16:13:00 79 mm[Hg] [facility] [place] Body temperature 2024-02-02 13:21:00 36.56 Kristal [facility] [place] Body height 2024-02-01 14:29:00 172.7 cm [facility] [place] Body weight 2024-02-01 14:29:00 68.9 kg [facility] [place] BMI 2024-02-01 14:29:00 23.10 kg/m2 [facility] [place] Systolic blood pressure 2024-01-22 18:14:00 174 mm[Hg] [facility] [place] Diastolic blood pressure 2024-01-22 18:14:00 99 mm[Hg] [facility] [place] Heart rate 2024-01-22 18:14:00 77 /min [facility] [place] Oxygen saturation in Arterial blood by Pulse oximetry 2024-01-22 18:14:00 99 /min [facility] [place] Body temperature 2024-01-22 18:13:00 36.28 Kristal [facility] [place] Respiratory rate 2024-01-22 18:13:00 20 /min [facility] [place] Body height 2024-01-22 18:13:00 172.7 cm [facility] [place] Body weight 2024-01-22 18:13:00 70.761 kg [facility] [place] BMI 2024-01-22 18:13:00 23.72 kg/m2 [facility] [place] Systolic blood pressure 2023-12-28 14:02:00 182 mm[Hg] [facility] [place] Diastolic blood pressure 2023-12-28 14:02:00 90 mm[Hg] [facility] [place] Heart rate 2023-12-28 14:02:00 68 /min [facility] [place] Body temperature 2023-12-28 13:54:00 36.17 Kristal [facility] [place] Respiratory rate 2023-12-28 13:54:00 16 /min [facility] [place] Body height 2023-12-28 13:54:00 172.7 cm [facility] [place] Body weight 2023-12-28 13:54:00 71.753 kg [facility] [place] BMI 2023-12-28 13:54:00 24.05 kg/m2 [facility] [place] Oxygen saturation in Arterial blood by Pulse oximetry 2023-12-28 13:54:00 100 /min [facility] [place] Systolic blood pressure 2023-09-16 04:00:00 176 mm[Hg] [facility] [place] Diastolic blood pressure 2023-09-16 04:00:00 107 mm[Hg] [facility] [place] Respiratory rate 2023-09-16 04:00:00 18 /min [facility] [place] Oxygen saturation in Arterial blood by Pulse oximetry 2023-09-16 04:00:00 97 /min [facility] [place] Heart rate 2023-09-16 03:10:00 112 /min [facility] [place] Body temperature 2023-09-16 00:34:26 37.28 Kristal [facility] [place] Body height 2023-09-16 00:23:00 172.7 cm [facility] [place] Body weight 2023-09-16 00:23:00 71.668 kg [facility] [place] BMI 2023-09-16 00:23:00 24.02 kg/m2 [facility] [place] Systolic blood pressure 2022-10-22 20:23:00 158 mm[Hg] states he has not taken his BP medications yet today [facility] [place] Diastolic blood pressure 2022-10-22 20:23:00 106 mm[Hg] states he has not taken his BP medications yet today [facility] [place] Heart rate 2022-10-22 20:23:00 97 /min [facility] [place] Body temperature 2022-10-22 20:23:00 37 Kristal [facility] [place] Respiratory rate 2022-10-22 20:23:00 20 /min [facility] [place] Body height 2022-10-22 20:23:00 172.7 cm [facility] [place] Body weight 2022-10-22 20:23:00 75.751 kg [facility] [place] BMI 2022-10-22 20:23:00 25.39 kg/m2 [facility] [place] Oxygen saturation in Arterial blood by Pulse oximetry 2022-10-22 20:23:00 100 /min [facility] [place] height 2022-06-16 08:20:00 66.5 [in_i] [facility] weight 2022-06-16 08:20:00 152 [lb_av] [facility] temperature 2022-06-16 08:20:00 96.7 [degF] [facility] bmi 2022-06-16 08:20:00 24.16 kg/m2 [facility] oximetry 2022-06-16 08:20:00 98 % [facility] respiratory rate 2022-06-16 08:20:00 18 /min [facility] blood pressure systolic 2022-06-16 08:20:00 138 mm[Hg] [facility] blood pressure diastolic 2022-06-16 08:20:00 82 mm[Hg] [facility] height 2022-04-04 15:00:00 68.00 [in_i] [facility] weight 2022-04-04 15:00:00 152.2 [lb_av] [facility] temperature 2022-04-04 15:00:00 98.4 [degF] [facility] bmi 2022-04-04 15:00:00 23.14 kg/m2 [facility] oximetry 2022-04-04 15:00:00 98 % [facility] respiratory rate 2022-04-04 15:00:00 18 /min [facility] blood pressure systolic 2022-04-04 15:00:00 137 mm[Hg] [facility] blood pressure diastolic 2022-04-04 15:00:00 76 mm[Hg] [facility] height 2022-04-04 15:20:00 68.00 [in_i] [facility] weight 2022-04-04 15:20:00 152.2 [lb_av] [facility] temperature 2022-04-04 15:20:00 98.4 [degF] [facility] bmi 2022-04-04 15:20:00 23.14 kg/m2 [facility] oximetry 2022-04-04 15:20:00 98 % [facility] respiratory rate 2022-04-04 15:20:00 18 /min [facility] blood pressure systolic 2022-04-04 15:20:00 137 mm[Hg] [facility] blood pressure diastolic 2022-04-04 15:20:00 76 mm[Hg] [facility] height 2022-03-02 09:10:00 68.00 [in_i] [facility] weight 2022-03-02 09:10:00 157.2 [lb_av] [facility] temperature 2022-03-02 09:10:00 97.3 [degF] [facility] bmi 2022-03-02 09:10:00 23.9 kg/m2 [facility] oximetry 2022-03-02 09:10:00 100 % [facility] respiratory rate 2022-03-02 09:10:00 18 /min [facility] blood pressure systolic 2022-03-02 09:10:00 138 mm[Hg] [facility] blood pressure diastolic 2022-03-02 09:10:00 82 mm[Hg] [facility] height 2022-02-16 08:00:00 68.00 [in_i] [facility] weight 2022-02-16 08:00:00 156.9 [lb_av] [facility] temperature 2022-02-16 08:00:00 97.2 [degF] [facility] bmi 2022-02-16 08:00:00 23.85 kg/m2 [facility] oximetry 2022-02-16 08:00:00 99 % [facility] respiratory rate 2022-02-16 08:00:00 18 /min [facility] blood pressure systolic 2022-02-16 08:00:00 132 mm[Hg] [facility] blood pressure diastolic 2022-02-16 08:00:00 76 mm[Hg] [facility] Systolic blood pressure 2022-01-06 04:43:00 189 mm[Hg] [facility] [place] Diastolic blood pressure 2022-01-06 04:43:00 118 mm[Hg] [facility] [place] Heart rate 2022-01-06 04:43:00 95 /min [facility] [place] Respiratory rate 2022-01-06 04:43:00 20 /min [facility] [place] Oxygen saturation in Arterial blood by Pulse oximetry 2022-01-06 04:43:00 99 /min [facility] [place] Body temperature 2022-01-06 04:17:00 37.22 Kristal [facility] [place] Body height 2022-01-06 04:17:00 172.7 cm [facility] [place] Body weight 2022-01-06 04:17:00 77.111 kg [facility] [place] BMI 2022-01-06 04:17:00 25.85 kg/m2 [facility] [place] oximetry 2022-01-04 10:00:00 97 % [facility] respiratory rate 2022-01-04 10:00:00 17 /min [facility] blood pressure systolic 2022-01-04 10:00:00 137 mm[Hg] [facility] blood pressure diastolic 2022-01-04 10:00:00 85 mm[Hg] [facility] height 2022-01-04 10:00:00 68.00 [in_i] [facility] weight 2022-01-04 10:00:00 156.6 [lb_av] [facility] temperature 2022-01-04 10:00:00 97.8 [degF] [facility] bmi 2022-01-04 10:00:00 23.81 kg/m2 [facility] Systolic blood pressure 2024-09-08 21:51:00 156 mm[Hg] [facility] [place] Diastolic blood pressure 2024-09-08 21:51:00 95 mm[Hg] [facility] [place] Heart rate 2024-09-08 21:51:00 89 /min [facility] [place] Body temperature 2024-09-08 21:51:00 36.17 Kristal [facility] [place] Oxygen saturation in Arterial blood by Pulse oximetry 2024-09-08 21:51:00 94 /min [facility] [place] Respiratory rate 2024-09-08 06:32:00 16 /min [facility] [place] Body weight 2024-09-08 06:32:00 73.483 kg [facility] [place] BMI 2024-09-08 06:32:00 25.37 kg/m2 [facility] [place] Body height 2024-09-08 01:14:19 170.2 cm [facility] [place] Procedures Procedure Date / Time Performed Performing Clinician Source POCT GLUCOSE (AUTOMATED) 2024-09-08 22:59:00 Daisha Mcgowan [facility] [place] POCT GLUCOSE (AUTOMATED) 2024-09-08 22:59:00 Daisha Mcgowan [facility] [place] IRON PANEL 2024-09-08 21:16:00 Demi Tobar [facility] [place] IRON PANEL 2024-09-08 21:16:00 Demi Tobar [facility] HEPATITIS B SURFACE ANTIGEN 2024-09-08 21:16:00 Darrick Diaz [facility] HEPATITIS B SURFACE ANTIBODY 2024-09-08 [facility] 2024-09-08 17:50:00 Daisha Mcgowan [facility] [place] POCT GLUCOSE (AUTOMATED) 2024-09-08 17:50:00 Daisha Mcgowan Noah [facility] [place] POCT GLUCOSE (AUTOMATED) 2024-09-08 14:27:00 Daisha Mcgowan Noah [facility] [place] POCT GLUCOSE (AUTOMATED) 2024-09-08 14:27:00 Daisha Mcgowan Noah [facility] [place] FERRITIN SERUM 2024-09-08 07:10:00 Demi Tobar amwywendy [facility] VITAMIN B12, LEVEL 2024-09-08 07:10:00 Amadou Jean-Baptiste [facility] FOLATE 2024-09-08 07:10:00 [place] [facility] TROPONIN I 2024-09-08 07:10:00 Demi Tobar amwywendy [facility] THYROID STIMULATING HORMONE 2024-09-08 07:10:00 Amadou Jean-Baptiste [facility] BASIC METABOLIC PANEL (NA, K, CL, CO2, GLUCOSE, BUN, CREATININE, CA) 2024-09-08 07:10:00 Estiven Tobar [facility] INTACT PTH CALCIUM GROUP 2024-09-08 07:10:00 Alice monique Jean-Baptiste [facility] TROPONIN I 2024-09-08 07:10:00 Amadou yony [facility] BASIC METABOLIC PANEL (NA, K, CL, CO2, GLUCOSE, BUN, CREATININE, CA) 2024-09-08 07:10:00 Amadou Jean-Baptiste [facility] INTACT PTH CALCIUM GROUP 2024-09-08 07:10:00 Estiven Lacey Jignesh [facility] [place] VITAMIN D, 25-OH 2024-09-08 07:10:00 Jarocho Tobar [facility] VITAMIN B12, LEVEL 2024-09-08 07:10:00 Estiven Tobar Jignesh [facility] [place] FOLATE 2024-09-08 07:10:00 Demi Tobar Jignesh [facility] [place] FERRITIN SERUM 2024-09-08 07:10:00 Demi Tobar amwywendy [facility] THYROID STIMULATING HORMONE 2024-09-08 07:10:00 Estiven Tobar [facility] HB ECG ROUTINE & RHYTHM STRIP 2024-09-08 06:59:52 Honey Pierce [facility] [place] POTASSIUM SERUM 2024-09-08 05:06:00 [facility] 2024-09-08 05:06:00 Demi Tobar amwywendy [facility] POTASSIUM SERUM 2024-09-08 05:06:00 [facility] 2024-09-08 05:06:00 Dem[place]ar [place] [facility] POCT GLUCOSE(AGE >30DAYS) 2024-09-08 04:28:00 Honey Pierce [facility] [place] POCT GLUCOSE(AGE >30DAYS) 2024-09-08 04:28:00 Honey Pierce [facility] [place] POCT GLUCOSE (AUTOMATED) 2024-09-08 04:26:00 Rochelle Pierce [facility] [place] POCT GLUCOSE (AUTOMATED) 2024-09-08 04:26:00 Rochelle Pierce [facility] [place] POCT GLUCOSE(AGE >30DAYS) 2024-09-08 03:59:00 Honey Pierce [facility] [place] POCT GLUCOSE(AGE >30DAYS) 2024-09-08 03:59:00 Honey Pierce [facility] [place] POCT GLUCOSE (AUTOMATED) 2024-09-08 03:57:00 Rochelle Pierce [facility] [place] POCT GLUCOSE (AUTOMATED) 2024-09-08 03:57:00 Rochelle Pierce [facility] [place] POCT GLUCOSE (AUTOMATED) 2024-09-08 03:15:00 Rochelle Pierce [facility] [place] POCT GLUCOSE (AUTOMATED) 2024-09-08 03:15:00 Rochelle Pierce [facility] [place] POCT GLUCOSE(AGE >30DAYS) 2024-09-08 02:43:00 Honey Pierce [facility] [place] POCT GLUCOSE(AGE >30DAYS) 2024-09-08 02:43:00 Honey Pierce [facility] [place] HB ECG ROUTINE & RHYTHM STRIP 2024-09-08 02:40:10 Rochelle Pierceherine [facility] [place] HB ECG ROUTINE & RHYTHM STRIP 2024-09-08 02:40:10 Honey Pierce [facility] [place] POCT GLUCOSE (AUTOMATED) 2024-09-08 02:33:00 Rochelle Pierce [facility] [place] POCT GLUCOSE (AUTOMATED) 2024-09-08 02:33[facility] 2024-09-08 01:34:[address] [facility] XR CHEST 2 VW 2024-09-08 01:34:[address] [facility] LIPASE 2024-09-08 00:54:00 Honey Pierce [facility] MAGNESIUM 2024-09-08 00:54:00 Honey Pierce [facility] TROPONIN I 2024-09-08 00:54:00 Honey Pierce [facility] COMP. METABOLIC PANEL ([id number]) 2024-09-08 00:54:00 Honey Pierce [facility] [place] CBC WITH DIFF 2024-09-08 00:54:[address] [facility] TROPONIN I 2024-09-08 00:54:00 Honey Pierce [facility] COMP. METABOLIC PANEL ([id number]) 2024-09-08 00:54:00 Honey Pierce [facility] [place] LIPASE 2024-09-08 00:54:00 Honey Pierce [facility] CBC WITH DIFF 2024-09-08 00:54:00 [facility] 2024-09-08 00:54:00 Honey Piecre [facility] EKG-12 LEAD 2024-09-08 00:42:15 Ed Mcgowan [facility] [place] PHYSICIAN ORDERS 2024-04-19 17:44:44 Doctor Manny signed, Benedict [facility] [place] URINALYSIS 2024-04-03 10:05:00 [facility] 2024-02-29 12:39:50 Patrick Willis [facility] [place] [id number] - [place] ARTERIOVENOUS ANASTOMOSIS OPEN DIRECT 2024-02-29 12:15:00 Joaquín [facility] [id number] - [place] ARVEN ANAST OPN F/ARM VEIN TRPOS 2024-02-29 12:15:00 Joaquín [facility] [id number] - [place] ARVEN ANAST OPN UPR ARM BASILIC VEIN TRPOS 2024-02-29 12:15:00 Joaquín [facility] [id number] - [place] ARVEN ANAST OPN UPR ARM CEPHALIC VEIN TRPOS 2024-02-29 12:15:00 Joaquín [facility] [id number] - [place] CRTJ ARVEN FSTL XCP DIR ARVEN ANAST AUTOG GRF 2024-02-29 12:15:00 Joaquín [facility] [id number] - [place] CRTJ ARVEN FSTL XCP DIR ARVEN ANAST NONAUTOG GRF 2024-02-29 12:15:00 Joaquín [facility] ISTAT ACUTE CARE VENOUS 2024-02-29 12:14:00 [facility] 2024-02-29 11:59:00 Jamal Yanes aripierre [facility] [place] POCT GLUCOSE (AUTOMATED) 2024-02-29 11:59:00 Jamal Yanes ariq [facility] [place] HB ABO GROUPING 2024-02-29 11:57:[address] [facility] HB ABO GROUPING 2024-02-29 11:57:00 Joaquín [facility] REFERRAL- REQUEST/RESPONSE 2024-02-15 14:22:20 Doctor Unassigned, Benedict [facility] [place] XR CHEST 1 VW 2024-02-02 16:06:00 Denisse Cabrera [facility] XR CHEST 1 VW 2024-02-02 16:06:00 Denisse Cabrera [facility] [place] TIME OR (NON-REPORTABLE) 2024-02-02 15:57:00 Michelle Moscoso [facility] [place] TIME OR (NON-REPORTABLE) 2024-02-02 15:57:00 Michelle Moscoso [facility] [place] HB ABO GROUPING 2024-02-02 14:17:00 Jazmine kwong Patrick [facility] [place] HB ABO GROUPING 2024-02-02 14:17:00 Jazmine kwong [facility] [id number] - [place] INSJ 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/> 2024-02-02 14:13:00 Michelle Moscoso [facility] [place] [id number] - CHG FLUORO CENTRAL VENOUS ACCESS DEV PLACEMENT 2024-02-02 14:13:00 Michelle Moscoso [facility] [place] [id number] - CHG US VASC ACCESS SITS VSL PATENCY NDL ENTRY 2024-02-02 14:13:00 Michelle Moscoso [facility] [place] ISTA ACUTE CARE VENOUS 2024-02-02 13:54:00 iMchelle Moscoso [facility] 2024-02-02 13:54:00 Michelle Moscoso [facility] [place] BASIC METABOLIC PANEL (NA, K, CL, CO2, GLUCOSE, BUN, CREATININE, CA) 2024-02-02 13:37:00 Michelle Moscoso [facility] [place] BASIC METABOLIC PANEL (NA, K, CL, CO2, GLUCOSE, BUN, CREATININE, CA) 2024-02-02 13:37:00 Michelle Moscoso [facility] [place] POCT GLUCOSE (AUTOMATED) 2024-02-02 13:34:00 Michelle Moscoso [facility] [place] POCT GLUCOSE (AUTOMATED) 2024-02-02 13:34:00 Michelle Moscoso [facility] [place] REFERRAL- REQUEST/RESPONSE 2023-12-28 16:28:26 Doctor Unassigned, Benedict [facility] [place] REFERRAL- REQUEST/RESPONSE 2023-12-28 15:44:04 Doctor Unassigned, Benedict [facility] [place] REFERRAL- REQUEST/RESPONSE 2023-12-25 21:29:06 Doctor Unassigned, Benedict [facility] [place] REFERRAL- REQUEST/RESPONSE 2023-09-28 06:01:00 Doctor Unassigned, Benedict [facility] [place] URINALYSIS 2023-09-16 01:26:00 Grady Thrasher [facility] XR CHEST 1 VW 2023-09-16 00:59:20 Singer [facility] POCT GLUCOSE (AUTOMATED) 2023-09-16 00:52:00 Lauri Thrasher [facility] [place] LACTIC ACID WHOLE BLOOD 2023-09-16 00:49:00 Traci Thrasher [facility] [place] TROPONIN I 2023-09-16 00:48:00 Singer Grady [facility] COMP. METABOLIC PANEL ([id number]) 2023-09-16 00:48:00 Singer [facility] CBC WITH DIFF 2023-09-16 00:48:00 Singer [facility] RAPID INFLUENZA A/B 2023-09-16 00:48:00 Hiro Thrasher [facility] [place] N-TERMINAL PRO-BNP 2023-09-16 00:48:00 Singer [facility] COVID-19 (ID NOW RAPID TESTING) 2023-09-16 00:48:00 Singer [facility] NOTICE OF PRIVACY PRACTICES 2023-09-16 00:05:57 Doctor Unassigned, Benedict [facility] [place] CONSENT/REFUSAL FOR DIAGNOSIS AND TREATMENT 2023-09-16 00:01:56 Doctor Unassigned, Benedict [facility] [place] CONSENT/REFUSAL FOR DIAGNOSIS AND TREATMENT 2022-10-22 20:18:01 Doctor Unassigned, Benedict [facility] [place] COMP. METABOLIC PANEL ([id number]) 2022-01-06 04:34:00 Davidson Torres [facility] [place] CBC WITH DIFF 2022-01-06 04:34:[address] [facility] NOTICE OF PRIVACY PRACTICES 2022-01-06 04:06:29 Doctor Unassigned, Benedict [facility] [place] CONSENT/REFUSAL FOR DIAGNOSIS AND TREATMENT 2022-01-06 04:05:18 Doctor Unassigned, Benedict [facility] [place] POCT HEMOGLOBIN A1C TEST 2021-04-09 15:17:00 Carmen Mojica [facility] [place] LIPID PANEL ([id number])(TOTAL CHOLESTEROL, TRIGLYCERIDES, HDL) 2021-03-04 15:29:00 Ton Galindo [facility] [place] HCV ANTIBODY 2021-03-04 15:29:00 Ton Galindo [facility] [place] MODIFIED BARIUM SWALLOW 2018-01-15 15:43:00 Alan Muñoz [facility] [place] Encounters Start Date/Time End Date/Time Encounter Type Admission Type Attending [facility] Care Facility Care Department Encounter ID Source 2024-01-22 15:12:39 Outpatient R MICHELLE MOSCOSO [facility] JESSICA [id number] [facility] 2022-11-17 14:49:01 Outpatient [place], [facility] [id number] [facility] 2022-08-19 11:40:02 Outpatient [place], [facility] [id number] [facility] 2022-06-15 11:26:03 Outpatient [place], [facility] [id number] [facility] 2022-03-02 15:11:02 Outpatient Danial [facility] [id number] [facility] 2022-02-15 10:14:02 Outpatient [facility] [facility] [id number] [facility] 2022-01-04 10:07:04 Outpatient aRhul Jasmine [facility] [id number] [facility] 2021-07-11 11:01:51 Emergency [facility] [id number] [facility] 2021-07-09 22:11:41 Emergency [facility] [id number] [facility] 2024-11-01 09:00:00 2024-11-01 09:00:00 Outpatient REENA SMART [facility] [id number] [facility] 2024-02-15 00:00:00 2024-10-26 07:34:49 Orders Only Doctor Unassigned, Benedict Doctor Unassigned, Benedict [facility] ([facility] 1.2.840.114 350.1.13.10 4.2.7.2.686 [id number] 009 [id number] [facility] 2024-04-19 00:00:00 2024-10-26 07:10:00 Orders Only Doctor Unassigned, Benedict Doctor Unassigned, Benedict [facility] ([facility] 1.2.840.114 350.1.13.10 4.2.7.2.686 [id number] [facility] 2018-01-15 00:00:00 2024-10-26 03:19:36 Orders Only Doctor Unassigned, Benedict Doctor Unassigned, Benedict [facility] ([facility] 1.2.840.114 350.1.13.10 4.2.7.2.686 [id number] [facility] 2023-12-25 00:00:00 2024-10-26 02:20:22 Orders Only Doctor Unassigned, Benedict Doctor Unassigned, Benedict [facility] ([facility]) 1.2.840.114 350.1.13.10 4.2.7.2.686 [id number] 009 [id number] [facility] 2023-12-28 00:00:00 2024-10-26 02:16:37 Orders Only Doctor Unassigned, Benedict Doctor Unassigned, Benedict [facility] 1.2.840.114 350.1.13.10 4.2.7.2.686 [id number] 009 [id number] [facility] 2023-12-28 00:00:00 2024-10-26 02:16:36 Orders Only Doctor Unassigned, Benedict Doctor Unassigned, Benedict [facility] 1.2.840.114 350.1.13.10 4.2.7.2.686 [id number] [facility] 2024-10-19 00:00:00 2024-10-21 10:14:44 Nurse Triage ArtemioKiracalvin Hill 1.2.840.1 25721.1.1 3.104.2.7 .3.636304 .8 [id number] [facility] 2024-09-10 00:00:00 2024-09-10 10:21:18 Transition of Care Radu Salguero 1.2.840.1 09447.1.1 3.104.2.7 .3.827001 .8 [id number] [facility] 2024-09-07 18:44:00 2024-09-08 19:25:00 Outpatient X ED [facility] [id number] [facility] 2024-09-07 18:44:00 2024-09-08 19:25:00 Emergency [facility] Carlos Adrian Yeh, Owen Li-Young 1.2.840.1 19685.1.1 3.104.2.7 .3.106454 .8 [id number] [facility] 2024-09-07 00:00:00 2024-09-07 00:00:00 Travel 1.2.840.1 72351.1.1 3.104.2.7 .3.302206 .8 1.2.840.114 350.1.13.10 4.2.7.3.698 [id number] [facility] 2024-07-15 14:15:00 2024-07-15 14:30:00 Laboratory Inspector Visit Beba, Adc Lab Main Trung Crawford Pogerman, Adc Lab Main [facility] PROFESSIO NAL BUILDING 1.2840.114 350.1.13.10 4.2.7.2.686 [id number] [facility] 2024-07-15 14:15:00 2024-07-15 14:15:00 Outpatient TRUNG ROWE [facility] [id number] [facility] 2024-07-15 13:42:00 2024-07-15 13:43:00 Emergency X STEVE GUERIN JULIO [facility] ERT [id number] [facility] 2024-07-15 13:42:00 2024-07-15 13:43:00 Emergency Steve Guerin [facility] 1.2.840.114 350.1.13.10 4.2.7.2.686 [id number] [id number] [facility] 2024-05-09 15:30:00 2024-05-09 15:45:00 Office Visit Andrei Yanes [facility] PROFESSIO NAL BUILDING 1.2.840.114 350.1.13.10 4.2.7.2.686 [id number] [facility] 2024-05-09 15:30:00 2024-05-09 15:30:00 Outpatient R ANDREI YANES [facility] [id number] [facility] 2024-04-25 13:45:00 2024-04-25 13:45:00 Outpatient ANDREI MENDOZA [facility] [id number] [facility] 2024-04-03 03:36:00 2024-04-03 06:10:00 Emergency X BERENICE ASHER SANDRA [facility] ERT [id number] [facility] 2024-04-03 03:36:00 2024-04-03 06:10:00 Emergency Gilbert Berenice Angel [facility] 1.2.840.114 350.1.13.10 4.2.7.2.686 [id number] [id number] [facility] 2024-03-28 15:30:00 2024-03-28 16:06:24 Outpatient ANDREI MENDOZA [facility] [id number] [facility] 2024-03-28 15:30:00 2024-03-28 16:06:24 Office Visit Joaquín [facility] 1.2.840.114 350.1.13.10 4.2.7.2.686 [id number] [facility] 2024-03-01 00:00:00 2024-03-01 13:57:18 Telephone Joaquín [facility] 1.2.840.114 350.1.13.10 4.2.7.2.686 [id number] [facility] 2024-02-29 06:38:00 2024-02-29 09:55:00 Outpatient R JOAQUÍN ANDREI [facility] [id number] [facility] 2024-02-29 06:38:00 2024-02-29 09:55:00 Hospital Encounter Andrei Yanes [facility] 1.2.840.114 350.1.13.10 4.2.7.2.686 [id number] [id number] [facility] 2024-02-29 07:10:00 2024-02-29 09:50:00 Surgery Andrei Yanes [facility] SURGICAL CENTER 1.2.840.114 350.1.13.10 4.2.7.2.686 [id number] [id number] [facility] 2024-02-29 07:20:00 2024-02-29 09:12:00 Anesthesia Event Jessica Manzano Fernando [facility] SURGICAL HEADRICK 1.2.840.114 350.1.13.10 4.2.7.2.686 [id number] [id number] [facility] 2024-02-23 00:00:00 2024-02-23 09:09:23 Telephone Geovanna Ferris do [facility] MULTISPEC IALTY CENTER [facility] 1.2.840.114 350.1.13.10 4.2.7.2.686 [id number] [facility] 2024-02-22 00:00:00 2024-02-22 13:15:19 Letter (Out) Estiven Haas [facility]ISPEC [facility] 1.2.840.114 350.1.13.10 4.2.7.2.686 [id number] [facility] 2024-02-21 00:00:00 2024-02-21 11:17:43 Telephone Geovanna Ferris do [facility] MULTISPEC [facility]ALTY CENTER [facility] 1.2.840.114 350.1.13.10 4.2.7.2.686 [id number] [facility] 2024-02-20 15:00:00 2024-02-20 23:59:00 Outpatient LIANA CARTAGENA [facility] [id number] [facility] 2024-02-20 14:57:56 2024-02-20 23:59:00 Hospital Encounter [facility] 1.2.840.114 350.1.13.10 4.2.7.2.686 [id number] [facility] 2024-02-15 13:45:00 2024-02-15 14:02:57 Outpatient R ANDREI YANES [facility] [id number] [facility] 2024-02-15 13:45:00 2024-02-15 14:02:57 Office Visit Andrei Yanes [facility] 1.2.840.114 350.1.13.10 4.2.7.2.686 [id number] [facility] 2024-02-15 08:15:00 2024-02-15 08:30:00 Office Visit Michelle Moscoso [facility] BUILDING 1.2.840.114 350.1.13.10 4.2.7.2.686 [id number] [facility] 2024-02-06 00:00:00 2024-02-07 09:59:25 Telephone Michelle Moscoso [facility] 1.2.840.114 350.1.13.10 4.2.7.2.686 [id number] [facility] 2024-02-03 18:51:00 2024-02-03 19:29:00 Emergency X DARRION [facility] E[facility] [id number] [facility] 2024-02-03 18:51:00 2024-02-03 19:29:00 Emergency Roverto [facility] 1.2.840.114 350.1.13.10 4.2.7.2.686 [id number] [id number] [facility] 2024-02-02 16:15:00 2024-02-02 16:30:00 Laboratory Inspector Visit 2, Adc Lab Trung Crawford [facility] PROFESSIO NAL BUILDING 1.2.840.114 350.1.13.10 4.2.7.2.686 [id number] [facility] 2024-02-02 16:15:00 2024-02-02 16:15:00 Outpatient R MAURISIOPASQUALEKARENADemarioNOEMÍIO [facility] [id number] [facility] 2024-02-02 08:09:00 2024-02-02 13:45:00 Outpatient R MICHELLE MOSCOSO [facility] JESSICA [id number] [facility] 2024-02-02 08:09:00 2024-02-02 13:45:00 Hospital Encounter Michelle Moscoso [facility] SURGICAL HEADRICK 1.2.840.114 350.1.13.10 4.2.7.2.686 [id number] [facility] 2024-02-02 09:30:00 2024-02-02 11:17:00 Surgery Michelle Moscoso [facility] SURGICAL HEADRICK 1.2.840.114 350.1.13.10 4.2.7.2.686 [id number] [facility] 2024-01-31 00:00:00 2024-02-01 09:45:12 Telephone Michelle Moscoso [facility] 1.2.840.114 350.1.13.10 4.2.7.2.686 [id number] [facility] 2024-01-31 00:00:00 2024-01-31 14:35:51 Letter (Out) Doctor Unassigned, Benedict [facility] 1.2.840.114 350.1.13.10 4.2.7.2.686 [id number] [facility] 2024-01-31 14:00:00 2024-01-31 14:00:00 Outpatient LIANA CARTAGENA [facility] [id number] [facility] 2024-01-30 00:00:00 2024-01-30 11:54:48 Telephone Michelle Moscoso [facility] 1.2.840.114 350.1.13.10 4.2.7.2.686 [id number] [facility] 2024-01-29 00:00:00 2024-01-29 12:00:59 Telephone Michelle Moscoso [facility] 1.2.840.114 350.1.13.10 4.2.7.2.686 [id number] [facility] 2024-01-29 00:00:00 2024-01-29 11:55:21 Telephone [facility] 1.2.840.114 350.1.13.10 4.2.7.2.686 [id number] [facility] 2024-01-22 13:00:00 2024-01-22 13:53:13 Outpatient MICHELLE CARTY [facility] [id number] [facility] 2024-01-22 13:00:00 2024-01-22 13:53:13 Office Visit Michelle Moscoso [facility] 1.2.840.114 350.1.13.10 4.2.7.2.686 [id number] [facility] 2024-01-10 11:00:00 2024-01-10 11:00:00 Outpatient LIANA CARTAGENA [facility] [id number] [facility] 2024-01-01 14:00:00 2024-01-01 14:00:00 Outpatient MICHELLE CARTY [facility] [id number] [facility] 2023-12-28 09:00:00 2023-12-28 09:49:00 Outpatient R LIANA SMITH [facility] [id number] [facility] 2023-12-28 09:00:00 2023-12-28 09:49:00 Office Visit Liana Smith [facility] 1..114 350.1.13.10 4.2.7.2.686 [id number] [facility] 2023-12-28 00:00:00 2023-12-28 00:00:00 Telephone Liana Smith [facility] 1.0.114 350.1.13.10 4.2.7.2.686 [id number] [facility] 2023-10-19 10:00:00 2023-10-19 10:00:00 Outpatient ANDREI MENDOZA [facility] [id number] [facility] 2023-10-13 09:30:00 2023-10-13 09:30:00 [facility] [id number] [facility] 2023-10-10 00:00:00 2023-10-10 00:00:00 Telephone Loren Yuan [facility] MULTISPEC [facility] 1..114 350.1.13.10 4.2.7.2.686 [id number] [facility] 2023-10-03 17:30:00 2023-10-03 18:00:00 BOAZ Visit Follow Up [IHC/OD Only] Deanne Gibbons 2..840. 1.705721. 4.6.96874 [id number] 2..840.1. 455015.4.6. [id number] [address] [place] [address] 2023-09-28 00:00:00 2023-09-28 00:00:00 Orders Only Doctor Unassigned, Benedict [facility] 1.2.840.114 350.1.13.10 4.2.7.2.686 [id number] [id number] [facility] 2023-09-18 18:00:00 2023-09-18 19:00:00 BOAZ Visit Deanne Gibbons 2.16.840. 1.292590. 4.6.39871 [id number] 2.16.840.1. 986584.4.6. [id number] [facility] 2023-09-15 18:25:00 2023-09-15 23:21:00 Emergency X GRADY THRASHER [facility] ERT [id number] [facility] 2023-09-15 18:25:00 2023-09-15 23:21:00 Emergency Grady Thrasher, Chip [facility] 1.2.840.114 350.1.13.10 4.2.7.2.686 [id number] [facility] 2023-07-22 00:00:00 2023-07-22 00:00:00 [place] [id number] [facility] 2023-04-04 00:00:00 2023-04-04 00:00:00 [place] [id number] [facility] 2023-04-04 00:00:00 2023-04-04 00:00:00 Outpatient GAYLORD_S DMG DMG [id number] [facility] 2023-03-01 19:00:00 2023-03-01 20:00:00 CAV [facility] Mary 2.16.840. 1.665709. 4.6.49329 [id number] 2.16.840.1. 022659.4.6. [id number] [facility] 2023-02-15 00:00:00 2023-02-15 00:00:00 [place] GAYLORD_[place] [id number] [facility] 2023-02-15 00:00:00 2023-02-15 00:00:00 Outpatient GAYLORD_S DMG [facility] [place] [place] [id number] [facility] 2022-12-13 00:00:00 2022-12-13 00:00:00 Outpatient Deshazo_T DMG [facility] [place] [place] [id number] [facility] 2022-12-13 00:00:00 2022-12-13 00:00:00 Outpatient Deshazo_T DMG [facility] [place] [place] [id number] [facility] 2022-11-21 00:00:00 2022-11-21 00:00:00 (TEL) STLMLC STLMLC [id number] [facility] 2022-10-24 00:00:00 2022-10-24 00:00:00 (TEL) STLMLC STLMLC [id number] [facility] 2022-10-22 14:26:00 2022-10-22 14:48:00 Emergency X BERENICE ASHER [facility] ERT [id number] [facility] 2022-10-22 14:26:00 2022-10-22 14:48:00 Emergency Berenice Asher [facility] ..840.114 350.1.13.10 4.2.7.2.686 [id number] [facility] 2022-10-21 00:00:00 2022-10-21 00:00:00 Carmen Hinson [facility] [place] 61736.2.840.114 350.1.13.10 4.2.7.2.686 [id number] [facility] 2022-08-22 00:00:00 2022-08-22 00:00:00 (TEL) STLMLC STLMLC [id number] [facility] 2022-06-16 00:00:00 2022-06-16 00:00:00 OFFICE VISIT ESTAB PT LEVEL 4 STLMLC STLMLC [id number] [facility] 2022-04-07 00:00:00 2022-04-07 00:00:00 (TEL) STLMLC STLMLC [id number] [facility] 2022-04-04 00:00:00 2022-04-04 00:00:00 OFFICE VISIT ESTAB PT LEVEL 4 STLMLC STLMLC [id number] [facility] 2022-04-04 00:00:00 2022-04-04 00:00:00 (TEL) STLMLC STLMLC [id number] [facility] 2022-04-04 00:00:00 2022-04-04 00:00:00 SUB ANNUAL [facility] WELLNESS VISIT STLMLC STLMLC [id number] [facility] 2022-03-30 00:00:00 2022-03-30 00:00:00 (TEL) STLMLC STLMLC [id number] [facility] 2022-03-28 00:00:00 2022-03-28 00:00:00 (TEL) STLMLC STLMLC [id number] [facility] 2022-03-25 06:17:00 2022-03-25 06:17:00 Outpatient Lukezo_T [facility] [id number] [facility] 2022-03-04 00:00:00 2022-03-04 00:00:00 (TEL) STLMLC STLMLC [id number] [facility] 2022-03-02 00:00:00 2022-03-02 00:00:00 OFFICE VISIT ESTAB PT LEVEL 4 STLMLC STLMLC [id number] [facility] 2022-02-16 00:00:00 2022-02-16 00:00:00 PREV VISIT EST AGE 40-64 STLMLC STLMLC [id number] [facility] 2022-01-25 00:00:00 2022-01-25 00:00:00 (TEL) STLMLC STLMLC [id number] [facility] 2022-01-19 18:00:00 2022-01-19 19:00:00 CAV Melony Corado 2.16.840. 1.873509. 4.6.08334 [id number] 2.16.840.1. 102580.4.6. [id number] [facility] 2022-01-17 07:28:00 2022-01-17 07:28:00 Outpatient Deshazo_T DMG [facility] [place] [place] [id number] [facility] 2022-01-05 23:20:00 2022-01-05 23:57:00 Emergency X DAVIDSON TORRES [facility] ERT [id number] [facility] 2022-01-05 23:20:00 2022-01-05 23:57:00 Emergency Davidson Torres [facility] 1.2.840.114 350.1.13.10 4.2.7.2.686 [id number] [facility] 2022-01-04 00:00:00 2022-01-04 00:00:00 OFFICE VISIT NEW PT LEVEL 4 STLMLC STLMLC [id number] [facility] 2021-12-04 00:00:00 2021-12-04 00:00:00 Refill Carmen Akhtar [facility] 1.2.840.114 350.1.13.10 4.2.7.2.686 [id number] [facility] 2021-11-30 08:40:00 2021-11-30 08:40:00 Outpatient R CARMEN AKHTAR [facility] [id number] [facility] 2021-11-30 08:40:00 2021-11-30 08:40:00 Outpatient R CARMEN AKHTAR [facility] [id number] [facility] 2021-09-14 00:00:00 2021-09-14 00:00:00 Refill Carmen Akhtar [facility] PROFESSIO NAL BUILDING 1.2.840.114 350.1.13.10 4.2.7.2.686 [id number] [facility] 2021-09-10 08:32:00 2021-09-10 08:32:00 Outpatient DMG DMG [id number] [facility] 2021-09-08 00:00:00 2021-09-08 00:00:00 Telephone Carmen Akhtar [facility] 1.2.840.114 350.1.13.10 4.2.7.2.686 [id number] [facility] 2021-08-18 13:40:00 2021-08-18 13:40:00 Outpatient REENA SMART [facility] [id number] [facility] 2021-08-18 13:40:00 2021-08-18 13:40:00 Outpatient REENA SMART [facility] [id number] [facility] 2021-08-02 11:05:37 2021-08-02 12:30:39 Office Visit Carmen Akhtar [facility] 1.2.840.114 350.1.13.10 4.2.7.2.686 [id number] [facility] 2021-08-02 11:00:00 2021-08-02 12:30:39 Outpatient R CARMEN AKHTAR [facility] [id number] [facility] 2021-07-22 00:00:00 2021-07-22 00:00:00 Refill Carmen Akhtar [facility] 1.2.840.114 350.1.13.10 4.2.7.2.686 [id number] [facility] 2021-07-13 00:00:00 2021-07-13 00:00:00 Telephone Nely Akhtarbeth A [facility]ILD[facility] 1.2.840.114 350.1.13.10 4.2.7.2.686 [id number] [facility] 2021-07-11 00:00:00 2021-07-11 00:00:00 Refill Tata Akhtarzabepaula Guadarrama [facility]ILD[facility] 1.2.840.114 350.1.13.10 4.2.7.2.686 [id number] [facility] 2021-07-07 16:24:40 2021-07-07 16:39:51 Urgent Care Enoc Diamond, [facility]?Kana chung Medical [facility] Building 1.2.840.114 350.1.13.10 4.2.7.2.686 [id number] [facility] 2021-07-07 16:20:00 2021-07-07 16:20:00 Outpatient Carson HEDRICK FORTUNATO [facility] [id number] [facility] 2021-07-07 00:00:00 2021-07-07 00:00:00 Refill Tata kAhtarzabepaula Guadarrama [facility] Building 1.2.840.114 350.1.13.10 4.2.7.2.686 [id number] [facility] 2021-07-02 12:01:00 2021-07-02 12:01:00 Outpatient DMG DMG [id number] [facility] 2021-07-02 00:00:00 2021-07-02 00:00:00 Telephone Tata Akhtarzabeth Thierry [facility] Building 1.2.840.114 350.1.13.10 4.2.7.2.686 [id number] [facility] 2021-06-28 00:00:00 2021-06-28 00:00:00 Telephone [facility]ht[facility]Carmen [facility] 1.2.840.114 350.1.13.10 4.2.7.2.686 [id number] [facility] 2021-06-25 00:00:00 2021-06-25 00:00:00 Tele[facility] 1.2.840.114 350.1.13.10 4.2.7.2.686 [id number] [facility] 2021-06-09 14:20:00 2021-06-09 14:20:00 Outpatient RUSLAN ANVA [facility] [id number] [facility] 2021-06-03 19:30:00 2021-06-03 19:30:00 Outpatient R WILLIAM HERMAN STRAHIL [facility] [id number] [facility] 2021-06-01 15:30:00 2021-06-01 15:30:00 Outpatient R [facility] [id number] [facility] 2021-05-06 10:57:09 2021-05-06 13:00:43 Office Visit Carmen Akhtar [facility] [id number] [facility] 2021-05-06 10:40:00 2021-05-06 10:40:00 Outpatient R CARMEN AKHTAR [facility] [id number] [facility] 2021-04-20 15:00:00 2021-04-20 15:00:00 Outpatient BENNETT POLLACK [facility] [id number] [facility] 2021-04-09 08:20:00 2021-04-09 08:20:00 Outpatient Carson AKHTAR CARMEN [facility] [id number] [facility] 2021-03-15 15:40:00 2021-03-15 15:40:00 Outpatient R BENNETT POOLE [facility] [id number] [facility] 2021-03-12 19:30:00 2021-03-12 19:30:00 Outpatient R [facility] [id number] [facility] 2021-03-04 09:00:00 2021-03-04 09:00:00 Outpatient R TON GALINDO [facility] [id number] [facility] 2020-12-06 11:40:00 2020-12-06 11:40:00 Outpatient [facility] [id number] [facility] 2020-11-08 11:05:00 2020-11-08 11:05:00 Outpatient SHELBY MAI [facility] [id number] [facility] Results Test Description Test Time Test Comments Results Result Co mments Source [facility] GLUCOSE (AUTOMATED)2024-09-08 17:51:49* Test Item Value Reference Range Interpretation Comme nts POCT GLU (test code = 0009384736) 190 mg/dL 70-110 H Lab Interpretation (test cod e = 61678-8) Abnormal [facility] GLUCOSE (AUTOMATED)2024-09-08 14:28:45* Test Item Value Reference Range Interpretation Comme nts POCT GLU (test code = 4601093552) 101 mg/dL 70-110 Lab Interpretation (test cod e = 93386-4) [facility]* Test Item Value Reference Range Interpretation Comme nts PHOSPHORUS (test code = 9666722287) 7.1 mg/dL 2.5-5.0 H Lab Interpretation (test cod e = 89715-0) [facility] - 2 Hours After Regular Insulin [id number] 06:04:08* Test Item Value Reference Range Interpretation Comme nts K (test code = 7221726832) 4.6 mmol/L 3.5-5.0 Lab Interpretation (test cod e = 79417-4) Normal [facility] GLUCOSE (AUTOMATED)2024-09-08 04:28:13* Test Item Value Reference Range Interpretation Comme nts POCT GLU (test code = 4427375962) 122 mg/dL 70-110 H Lab Interpretation (test cod e = 59649-4) Abnormal [facility] Glucose (AGE >30 DAYS) - 2 Hours After Regular Insulin Administration [id number] 04:28:00* Test Item Value Reference Range Interpretation Comme nts POCT Glu (age>30days) (test code = 3342) 122 mg/dL 70-110 A Lab Interpretation (test cod e = 15939-8) Abnormal [facility] GLUCOSE (AUTOMATED)2024-09-08 03:59:14* Test Item Value Reference Range Interpretation Comme nts POCT GLU (test code = 1219999719) 135 mg/dL 70-110 H Lab Interpretation (test cod e = 13743-5) Abnormal [facility] Glucose (AGE >30 DAYS) - 1 Hour After Regular Insulin Administration [id number] 03:59:00* Test Item Value Reference Range Interpretation Comme nts POCT Glu (age>30days) (test code = 3342) 135 mg/dL 70-110 A Lab Interpretation (test cod e = 69077-8) Abnormal [facility] GLUCOSE (AUTOMATED)2024-09-08 03:16:46* Test Item Value Reference Range Interpretation Comme nts POCT GLU (test code = 3972740304) 196 mg/dL 70-110 H Lab Interpretation (test cod e = 16936-6) Abnormal [facility] Glucose (AGE >30 DAYS) - Prior to Insulin Bolus Administration - See Sdwsurgd1227-45-70 02:43:00* Test Item Value Reference Range Interpretation Comme nts POCT Glu (age>30days) (test code = 3342) 122 mg/dL 70-110 A Lab Interpretation (test cod e = 36565-7) Abnormal [facility] GLUCOSE (AUTOMATED)2024-09-08 02:42:14* Test Item Value Reference Range Interpretation Comme nts POCT GLU (test code = 0933074118) 122 mg/dL 70-110 H Lab Interpretation (test cod e = 91016-0) Abnormal [facility] 2 [id number] 02:05:44HISTORY: ?chest pain COMPARISON: ?September 15, 2023 FINDINGS: PA and lateral views of the chest show the heart to be normal in size. ?Thelungs are clear. ?No acute osseous abnormality demonstrated.[facility] Austin[facility]OP[facility] 2024-09-08 01:43:30* Test Item Value Reference Range Interpretation Comme nts TROPONIN I (test code = 7948655996) 0.019 ng/mL <=0.034 ALESIA (test code = ALESIA) [...] of biotin. Lab Interpretation (test code = 55961-5) Normal [facility]. METABOLIC PANEL (32483)2024-09-08 01:35:39* Test Item Value Reference Range Interpretation Comme nts NA (test code = 3957977246) 140 mmol/L 135-145 K (test code = 6042798611) 6.2 mmol/L 3.5-5.0 HH CL (test code = 9849686455) 105 mmol/L 98-108 CO2 TOTAL (test code = 3885014928) 21 mmol/L 23-31 L AGAP (test code = 7786830493) 14 2-16 BUN (test code = 6630863146) 77 mg/dL 7-23 H GLUCOSE (test code = 7832083325) 144 mg/dL 70-110 H CREATININE (test code = 2160-0) 10.84 mg/dL 0.60-1.25 H TOTAL BILI (test code = 7452407964) 0.4 mg/dL 0.1-1.1 CALCIUM (test code = 9649069437) 8.3 mg/dL 8.6-10.6 L T PROTEIN (test code = 3792624125) 7.4 g/dL 6.3-8.2 ALBUMIN (test code = 6888685427) 4.2 g/dL 3.5-5.0 ALK PHOS (test code = 0742424541) 57 U/L 34-122 ALTv (test code = 1742-6) 11 U/L 5-50 AST(SGOT) (test code = 7951411896) 21 U/L 13-40 eGFR (test code = 05715-7) 5.1 mL/min/1.73m2 CKD-EPI eGFR (2020). Assuming creatinine has been stable day-to-day for at least three months, the eGFR indicates Category G5 (<= 14mL/min/1.73 m2) Lab Interpretation (test code = 48145-0) Abnormal [facility] AustinMagnesium2024-12-29 01:33:23* Test Item Value Reference Range Interpretation Comme nts MAGNESIUM (test code = 0437510566) 2.6 mg/dL 1.7-2.4 H Lab Interpretation (test cod e = 84845-8) Abnormal [facility] AustinLIPASE, [id number] 01:32:28* Test Item Value Reference Range Interpretation Comme nts LIPASE (test code = 7007691252) 189 U/L 0-220 Lab Interpretation (test cod e = 47878-0) Normal [facility] AustinCB WITH [id number] 01:13:45* Test Item Value Reference Range Interpretation Comme nts WBC (test code = 6690-2) 6.12 4.20-10.70 RBC (test code = 789-8) 4.12 4.26-5.52 L HGB (test code = 718-7) 11.5 g/dL 12.2-16.4 L HCT (test code = 4544-3) 36.7 % 38.4-49.3 L MCV (test code = 787-2) 89.1 fL 81.7-95.6 MCH (test code = 785-6) 27.9 pg 26.1-32.7 MCHC (test code = 786-4) 31.3 g/dL 31.2-35.0 RDW-SD (test code = 21698-9) 42.3 fL 38.5-51.6 RDW-CV (test code = 788-0) 12.9 % 12.1-15.4 PLT (test code = 777-3) 186 150-328 MPV (test code = 99974-3) 10.9 fL 9.8-13.0 NRBC/100 WBC (test code = 0990185460) 0.0 0.0-10.0 NRBC x10^3 (test code = 2670812185) See_Comment [Automated messa ge] The system which generated this result transmitted reference range: 10*3/?L. The reference range was not used to interpret this result as normal/abnormal. GRAN MAT (NEUT) % (test code = 770-8) 76.8 % IMM GRAN % (test code = 5423283439) 0.30 % LYMPH % (test code = 736-9) 11.1 % MONO % (test code = 5905-5) 7.5 % EOS % (test code = 713-8) 3.6 % BASO % (test code = 706-2) 0.7 % GRAN MAT x10^3(ANC) (test code = 0491711974) 4.70 10*3/uL 1.99-6.95 IMM GRAN x10^3 (test code = 5720007173) 0.00-0.06 LYMPH x10^3 (test code = 731-0) 0.68 10*3/uL 1.09-3.23 L MONO x10^3 (test code = 742-7) 0.46 10*3/uL 0.36-1.02 EOS x10^3 (test code = 711-2) 0.22 10*3/uL 0.06-0.53 BASO x10^3 (test code = 704-7) 0.04 10*3/uL 0.01-0.09 Lab Interpretation (test code = 24015-3) Abnormal [facility] AustinPHYSICIAN [id number] 17:44:44Ordered by an unspecified provider.[facility] AustinIsta [facility] Kumtgo0306-83-69 16:53:21* Test Item Value Reference Range Interpretation Comme nts PH (test code = 8719538313) 7.38 7.32-7.42 PCO2 MISAEL (test code = 6399094915) 44 41-51 PO2 MISAEL (test code = 6632883892) 48 25-40 H AC VBE(BEAKER) (test code = 1040853545) 1.0 -3.0-3.0 HCO3 MISAEL (test code = 6278256715) 26 24-28 %O2HB (test code = 6069368173) 82.0 % 95.0-98.0 L NA (test code = 7875771120) 142 mmol/L 135-145 K+ (test code = 4409354644) 4.1 mmol/L 3.5-5.0 AC CA IONZ (test code = 4461536609) 4.40 mg/dL 4.50-5.30 L GLUCOSE (test code = 0902774009) 117 mg/dL 70-110 H AC Hematocrit (test code = 4600147706) 25 40-54 LL THB (test code = 2251457383) 8.5 g/dL 13.5-18.0 L AC TCO2 MISAEL (test code = 7216998121) 27 mmol/L See_Comment [Automated [employer]] The system which generated this result transmitted reference range: 24-29 mmol/L. The reference range was not used to interpret this result as normal/abnormal. Lab Interpretation (test code = 40573-3) [facility] Csree0711-22-42 12:39:50AlPatrick Nation MD ? ? 02/29/2024 ?7:40 [...] 20 mLLido 2% 10 mLEPI 1:200K Sedation[facility]2024-02-29 12:05:23* Test Item Value Reference Range Interpretation Comme nts POCT GLU (test code = 3874348087) 122 mg/dL 70-110 H Lab Interpretation (test cod e = 08834-3) Abnormal [facility] GLUCOSE (AUTOMATED)2024-02-29 12:05:23* Test Item Value Reference Range Interpretation Comme nts POCT GLU (test code = 2430132521) 122 mg/dL 70-110 H Lab Interpretation (test cod e = 73811-8) Abnormal [facility] AustinType and Screen - This is a pre-surgical type and screen. ONCE [id number] 12:03:00* Test Item Value Reference Range Interpretation Comme nts ABO & RH (test code = 20) A NEGATIVE IAT (test code = 1185) Negative [facility] AustinType and Screen - This is a pre-surgical type and screen. ONCE [id number] 12:03:00* Test Item Value Reference Range Interpretation Comme nts ABO & RH (test code = 20) A NEGATIVE IAT (test code = 1185) Negative [facility] AustinREFERRAL- REQUEST/[id number] 14:22:20 Ordered by an unspecified provider.[facility] AustinXR CHEST 1 [id number] 16:37:52ORDERING PHYSICIAN: MICHELLE MOSCOSO. HISTORY: confirm CVC placement PACU CXR TECHNIQUE: AP COMPARISON: None. FINDINGS: Lungs: ?A right IJ line terminates at the cavoatrial junction. Diffuseconfluent ground glass opacity and prominence of interstitial markings isnoted. Pleura: ?No effusion or pleural disease is seen. ?No pneumothorax. Mediastinum/Clementine: ?No masses or adenopathy. Heart: ?The heart is not enlarged. Other: ?No acute osseous abnormality is seen.[facility] AustinXR CHEST 1 [id number] 16:37:52ORDERING PHYSICIAN: MICHELLE MOSCOSO. HISTORY: confirm CVC placement PACU CXR TECHNIQUE: AP COMPARISON: None. FINDINGS: Lungs: ?A right IJ line terminates at the cavoatrial junction. Diffuseconfluent ground glass opacity and prominence of interstitial markings isnoted. Pleura: ?No effusion or pleural disease is seen. ?No pneumothorax. Mediastinum/Clementine: ?No masses or adenopathy. Heart: ?The heart is not enlarged. Other: ?No acute osseous abnormality is seen.[facility] TIME OR (NON-REPORTABLE)2024-02-02 16:08:10These images do not require a Radiology diagnostic report.[facility] TIME OR (NON-REPORTABLE)2024-02-02 16:08:10These images do not require a Radiology diagnostic report.[facility] AustinIstat Acute Care Eitbqe9950-88-58 14:34:33* Test Item Value Reference Range Interpretation Comme nts PH (test code = 7872127194) 7.24 7.32-7.42 L PCO2 MISAEL (test code = 8559659186) 37 41-51 L PO2 MISAEL (test code = 5841981453) 41 25-40 H AC VBE(BEAKER) (test code = 4050004653) -12.0 -3.0-3.0 HCO3 MISAEL (test code = 9345310958) 16 24-28 L %O2HB (test code = 5830079562) 68.0 % 95.0-98.0 L NA (test code = 5730728467) 140 mmol/L 135-145 K+ (test code = 5558805514) 4.1 mmol/L 3.5-5.0 AC CA IONZ (test code = 5050490061) 4.40 mg/dL 4.50-5.30 L GLUCOSE (test code = 7493915180) 109 mg/dL 70-110 AC Hematocrit (test code = 4442131607) 22 40-54 LL THB (test code = 6446769303) 7.5 g/dL 13.5-18.0 LL AC TCO2 MISAEL (test code = 3760168942) 17 mmol/L See_Comment L [Automated messa ge] The system which generated this result transmitted reference range: 24-29 mmol/L. The reference range was not used to interpret this result as normal/abnormal. Lab Interpretation (test code = 66617-0) Abnormal [facility] Acute Care Oqbzvo8452-77-39 14:34:33* Test Item Value Reference Range Interpretation Comme nts PH (test code = 9365487400) 7.24 7.32-7.42 L PCO2 MISAEL (test code = 1962187093) 37 41-51 L PO2 MISAEL (test code = 1506087779) 41 25-40 H AC VBE(BEAKER) (test code = 1336678303) -12.0 -3.0-3.0 HCO3 MISAEL (test code = 8544417016) 16 24-28 L %O2HB (test code = 1500329110) 68.0 % 95.0-98.0 L NA (test code = 4287823801) 140 mmol/L 135-145 K+ (test code = 8775984943) 4.1 mmol/L 3.5-5.0 AC CA IONZ (test code = 8960911038) 4.40 mg/dL 4.50-5.30 L GLUCOSE (test code = 3258832522) 109 mg/dL 70-110 AC Hematocrit (test code = 1869597219) 22 40-54 LL THB (test code = 6980077819) 7.5 g/dL 13.5-18.0 LL AC TCO2 MISAEL (test code = 3218086016) 17 mmol/L See_Comment L [Automated messa ge] The system which generated this result transmitted reference range: 24-29 mmol/L. The reference range was not used to interpret this result as normal/abnormal. Lab Interpretation (test code = 10337-8) Abnormal [facility] and Screen - ONCE [id number] 14:25:00* Test Item Value Reference Range Interpretation Comme nts ABO & RH (test code = 20) A NEGATIVE IAT (test code = 1185) Negative [facility] AustinType and Screen - ONCE [id number] 14:25:00* Test Item Value Reference Range Interpretation Comme nts ABO & RH (test code = 20) A NEGATIVE IAT (test code = 1185) Negative [facility] Metabolic Panel (NA, K, CL, CO2, GLUCOSE, BUN, CREATININE, CA)2024-02-02 14:17:45* Test Item Value Reference Range Interpretation Comme nts NA (test code = 3707205379) 138 mmol/L 135-145 K (test code = 5636790799) 4.3 mmol/L 3.5-5.0 CL (test code = 6618936446) 110 mmol/L 98-108 H CO2 TOTAL (test code = 7027983094) 17 mmol/L 23-31 L AGAP (test code = 1587815097) 11 2-16 BUN (test code = 6886539849) 88 mg/dL 7-23 H GLUCOSE (test code = 8937755376) 111 mg/dL 70-110 H CREATININE (test code = 2160-0) 11.26 mg/dL 0.60-1.25 H CALCIUM (test code = 6729714334) 7.3 mg/dL 8.6-10.6 L eGFR (test code = 11059-8) 4.9 mL/min/1.73m2 CKD-EPI eGFR (2020). Assuming creatinine has been stable day-to-day for at least three months, the eGFR indicates Category G5 (<= 14mL/min/1.73 m2) Lab Interpretation (test code = 99651-9) Abnormal [facility] Metabolic Panel (NA, K, CL, CO2, GLUCOSE, BUN, CREATININE, CA)2024-02-02 14:17:45* Test Item Value Reference Range Interpretation Comme nts NA (test code = 1475942729) 138 mmol/L 135-145 K (test code = 8551597575) 4.3 mmol/L 3.5-5.0 CL (test code = 0011857095) 110 mmol/L 98-108 H CO2 TOTAL (test code = 7674559503) 17 mmol/L 23-31 L AGAP (test code = 9387514097) 11 2-16 BUN (test code = 2706315690) 88 mg/dL 7-23 H GLUCOSE (test code = 8379550925) 111 mg/dL 70-110 H CREATININE (test code = 2160-0) 11.26 mg/dL 0.60-1.25 H CALCIUM (test code = 9262281913) 7.3 mg/dL 8.6-10.6 L eGFR (test code = 52993-2) 4.9 mL/min/1.73m2 CKD-EPI eGFR (2020). Assuming creatinine has been stable day-to-day for at least three months, the eGFR indicates Category G5 (<= 14mL/min/1.73 m2) Lab Interpretation (test code = 42556-0) Abnormal [facility] GLUCOSE (AUTOMATED)2024-02-02 13:35:23* Test Item Value Reference Range Interpretation Comme nts POCT GLU (test code = 3635135354) 127 mg/dL 70-110 H Lab Interpretation (test cod e = 79259-4) Abnormal [facility] GLUCOSE (AUTOMATED)2024-02-02 13:35:23* Test Item Value Reference Range Interpretation Comme nts POCT GLU (test code = 0344827425) 127 mg/dL 70-110 H Lab Interpretation (test cod e = 34468-5) Abnormal [facility] AustinREFERRAL- REQUEST/[id number] 16:28:26 Ordered by an unspecified provider.[facility] AustinREFERRAL- REQUEST/[id number] 15:44:04Ordered by an unspecified provider.[facility] AustinREFERRAL- REQUEST/[id number] 21:29:06Ordered by an unspecified provider.[facility] AustinXR CHEST 1 VW 2023-09-16 01:53:52ORDERING PHYSICIAN: GRADY THRASHER CLINICAL HISTORY:shortness of breath TECHNIQUE:AP chest radiograph. COMPARISON:None. FINDINGS:No focal pulmonary consolidation, pleural effusion or pneumothorax. Heartsize within normal limits. Visualized bones are unremarkable.[facility] AustinTroponin [id number] 01:52:31* Test Item Value Reference Range Interpretation Comme nts TROPONIN I (test code = 3499022832) 0.028 ng/mL <=0.034 ALESIA (test code = [...] of biotin. Lab Interpretation (test code = 65087-5) Normal [facility] AustinN-Terminal Ljc-Oul8454-67-06 01:50:09* Test Item Value Reference Range Interpretation Comme nts NT-proBNP (test code = 91930-0) 8290 pg/mL <=125 H ALESIA (test code = ALESIA) Positive: Heart Failure Likely Lab Interpretation (test code = 26980-5) Abnormal [facility] Metabolic Panel (74246)2023-09-16 01:41:29* Test Item Value Reference Range Interpretation Comme nts NA (test code = 9453522858) 138 mmol/L 135-145 K (test code = 3898560468) 4.5 mmol/L 3.5-5.0 CL (test code = 1044790390) 107 mmol/L 98-108 CO2 TOTAL (test code = 4670781048) 14 mmol/L 23-31 L AGAP (test code = 5190307660) 17 2-16 H BUN (test code = 7266195090) 59 mg/dL 7-23 H GLUCOSE (test code = 8944106269) 134 mg/dL 70-110 H CREATININE (test code = 2118124184) 7.17 mg/dL 0.60-1.25 H TOTAL BILI (test code = 9901729015) 0.6 mg/dL 0.1-1.1 CALCIUM (test code = 1837434475) 9.2 mg/dL 8.6-10.6 T PROTEIN (test code = 9431251975) 8.4 g/dL 6.3-8.2 H ALBUMIN (test code = 6885124986) 4.2 g/dL 3.5-5.0 ALK PHOS (test code = 6897942437) 86 U/L 34-122 ALTv (test code = 1742-6) 13 U/L 5-50 AST(SGOT) (test code = 9423855221) 20 U/L 13-40 eGFR (test code = 23304-4) 8.5 mL/min/1.73m2 CKD-EPI eGFR (2020). Assuming creatinine has been stable day-to-day for at least three months, the eGFR indicates Category G5 (<= 14mL/min/1.73 m2) Lab Interpretation (test code = 36276-3) Abnormal [facility] with Iapu9659-53-45 01:03:42* Test Item Value Reference Range Interpretation Comme nts WBC (test code = 6690-2) 5.92 See_Comment [Automated [employer] [place] [place]] The system which generated this result transmitted reference range: 4.20 - 10.70 10*3/?L. The reference range was not used to interpret this result as normal/abnormal. RBC (test code = 789-8) 4.05 See_Comment L [Automated [employer] [place] [place]] The system which generated this result transmitted [...] 33.3 g/dL 31.2-35.0 RDW-SD (test code = 67766-5) 37.3 fL 38.5-51.6 L RDW-CV (test code = 788-0) 12.5 % 12.1-15.4 PLT (test code = 777-3) 244 See_Comment [Automated [employer] [place]] The system which generated this result transmitted reference range: 150 - 328 10*3/?L. The reference range was not used to interpret this result as normal/abnormal. MPV (test code = 10892-3) 10.5 fL 9.8-13.0 NRBC/100 WBC (test code = 0313129955) 0.0 See_Comment [Automated me ssage] The system which generated this result transmitted reference range: 0.0 - 10.0 /100 WBCs. The reference range was not used to interpret this result as normal/abnormal. NRBC x10^3 (test code = 7261550874) See_Comment [Automated messa ge] The system which generated this result transmitted reference range: 10*3/?L. The reference range was not used to interpret this result as normal/abnormal. GRAN MAT (NEUT) % (test code = 770-8) 67.7 % IMM GRAN % (test code = 8367896162) 0.20 % LYMPH % (test code = 736-9) 21.6 % MONO % (test code = 5905-5) 8.3 % EOS % (test code = 713-8) 1.5 % BASO % (test code = 706-2) 0.7 % GRAN MAT x10^3(ANC) (test code = 1128284556) 4.01 10*3/uL 1.99-6.95 IMM GRAN x10^3 (test code = 6598549758) 0.00-0.06 LYMPH x10^3 (test code = 731-0) 1.28 10*3/uL 1.09-3.23 MONO x10^3 (test code = 742-7) 0.49 10*3/uL 0.36-1.02 EOS x10^3 (test code = 711-2) 0.09 10*3/uL 0.06-0.53 BASO x10^3 (test code = 704-7) 0.04 10*3/uL 0.01-0.09 Lab Interpretation (test code = 21091-8) Abnormal [facility] AustinLawyic Acid Whole Ahewr4919-59-23 00:55:02* Test Item Value Reference Range Interpretation Comme [facility] LACTIC ACID (test code = 9503140494) 1.40 mmol/L 0.50-2.20 Lab Interpretation (test cod e = 03388-2) Normal [facility] AustinPOWY GLUCOSE (AUTOMATED)2023-09-16 00:53:36* Test Item Value Reference Range Interpretation Comme nts POCT GLU (test code = 5277437002) 131 mg/dL 70-110 H Lab Interpretation (test cod e = 98519-1) Abnormal [facility] AustinHEMOGLOBIN [id number] 00:00:00* Test Item Value Reference Range Interpretation Comme [facility] A1C (test code = 4548-4) 8.2 HEMOGLOBIN [id number] 00:00:00* Test Item Value Reference Range Interpretation Comme [facility] A1C (test code = 4548-4) 8.7 Lipid Panel w/ Chol/HDL [id number] 00:00:00* Test Item Value Reference Range Interpretation Comme [facility] Cholesterol, Total (test code = 2093-3) 143 mg/dL See_Comment [Automated message] The system which generated this result transmitted reference range: 100-199 mg/dL. The reference range was not used to interpret this result as normal/abnormal. Triglycerides (test code = 2571-8) 152 mg/dL See_Comment H [Automated [employer]] The system which generated this result transmitted reference range: 0-149 mg/dL. The reference range was not used to interpret this result as normal/abnormal. HDL Cholesterol (test code = 2085-9) 32 mg/dL See_Comment L [[employer]ated [employer]] The system which generated this result transmitted reference range: >39 mg/dL. The reference range was not used to interpret this result as normal/abnormal. T. Chol/HDL Ratio (test code = 9830-1) 4.5 ratio See_Comment [Automated [employer]] The system which generated this result transmitted reference range: 0.0-5.0 ratio. The reference range was not used to interpret this result as normal/abnormal. Microalbumin/Creat Ratio, Random [id number] 00:00:00* Test Item Value Reference Range Interpretation Comme [facility] Creatinine, Urine (test code = 2161-8) 147.5 mg/dL Not Estab. mg/dL Albumin, Urine (test code = 11535-9) 4494.6 ug/mL Not Estab. ug/mL Alb/Creat Ratio (test code = 34050-0) 3047 mg/g creat See_Comment H [[employer]ated [employer]] The system which generated this result transmitted reference range: 0-29 mg/g creat. The reference range was not used to interpret this result as normal/abnormal. COMP. METABOLIC PANEL (81593)2022-01-06 04:54:06* Test Item Value Reference Range Interpretation Comme nts NA (test code = 7719659018) 138 mmol/L 135-145 K (test code = 3602951969) 4.5 mmol/L 3.5-5.0 CL (test code = 7505877577) 103 mmol/L 98-108 CO2 TOTAL (test code = 5312986106) 26 mmol/L 23-31 AGAP (test code = 1729865803) 2-16 BUN (test code = 9476605147) 33 mg/dL 7-23 H GLUCOSE (test code = 5347823346) 236 mg/dL 70-110 H CREATININE (test code = 3411591445) 1.95 mg/dL 0.60-1.25 H TOTAL BILI (test code = 2892153332) 0.4 mg/dL 0.1-1.1 CALCIUM (test code = 6422387412) 8.7 mg/dL 8.6-10.6 T PROTEIN (test code = 3937433015) 6.9 g/dL 6.3-8.2 ALBUMIN (test code = 9573412444) 3.7 g/dL 3.5-5.0 ALK PHOS (test code = 4536529245) 61 U/L 34-122 ALTv (test code = 1742-6) 28 U/L 5-50 AST(SGOT) (test code = 5108795039) 30 U/L 13-40 eGFR (test code = 2380013262) mL/min/1.73m2 ALESIA (test code = ALESIA) Association [...] imaging tests). Lab Interpretation (test code = 04268-2) Abnormal [facility] WITH [id number] 04:42:08* Test Item Value Reference Range Interpretation Comme nts WBC (test code = 6690-2) See_Comment [Automated [employer]] The system which generated this result transmitted reference range: 4.20 - 10.70 10*3/?L. The reference range was not used to interpret this result as normal/abnormal. RBC (test code = 789-8) See_Comment [[employer]] The system which generated this result transmitted [...] 32.8 g/dL 31.2-35.0 RDW-SD (test code = 13252-3) 37.2 fL 38.5-51.6 L RDW-CV (test code = 788-0) 12.4 % 12.1-15.4 PLT (test code = 777-3) See_Comment [Automated messa ge] The system which generated this result transmitted reference range: 150 - 328 10*3/?L. The reference range was not used to interpret this result as normal/abnormal. MPV (test code = 36481-8) 10.3 fL 9.8-13.0 NRBC/100 WBC (test code = 4565017909) See_Comment [Automated [employer] ssage] The system which generated this result transmitted reference range: 0.0 - 10.0 /100 WBCs. The reference range was not used to interpret this result as normal/abnormal. NRBC x10^3 (test code = 4183429013) <0.01 See_Comment [Automated messa ge] The system which generated this result transmitted reference range: 10*3/?L. The reference range was not used to interpret this result as normal/abnormal. GRAN MAT (NEUT) % (test code = 770-8) 64.6 % IMM GRAN % (test code = 9261154205) 0.30 % LYMPH % (test code = 736-9) 22.8 % MONO % (test code = 5905-5) 8.0 % EOS % (test code = 713-8) 3.6 % BASO % (test code = 706-2) 0.7 % GRAN MAT x10^3(ANC) (test code = 9867557027) 4.82 10*3/uL 1.99-6.95 IMM GRAN x10^3 (test code = 1829460845) <0.03 0.00-0.06 LYMPH x10^3 (test code = 731-0) 1.70 10*3/uL 1.09-3.23 MONO x10^3 (test code = 742-7) 0.60 10*3/uL 0.36-1.02 EOS x10^3 (test code = 711-2) 0.27 10*3/uL 0.06-0.53 BASO x10^3 (test code = 704-7) 0.05 10*3/uL 0.01-0.09 Lab Interpretation (test code = 25741-8) Abnormal [facility] AustinFL MODIFIED BARIUM [id number] 16:12:00 *.*.*.*.*.*.*.*.*.*.*.*.*.*FINAL*.*.*.*.*.*.*.*.*.*.*.*.*.*.*MODIFIED BARIUM SWALLOW HISTORY: 47-year-old male, Gastrografin swallow first and is clear for leak intothe subcutaneous tissue of the neck then follow with a modified barium. TECHNIQUE and FINDINGS: Gastrografin was given first which showed no leak. Barium of varying consistencies of from solid through thin liquid wereadministered to the patient during fluoroscopy. The study was performed with thespee pathologist. Laryngeal penetration was noted on thin consistency barium. A single episode ofsilent aspiration was noted on thin consistency as well. FADUMO REILLY MBBS ?Personally interpreted by: MIRELA MCCOY MD /Signed/MIRELA MCCOY MDUnMem[facility] History and Physical Notes Date/Time Note Provider Source 2024-09-08 00:59:48 LUCERO Abdi Admit H&P PCP: PATIENT DOES NOT HAVE A PCP Date of Service: 09/08/2024 CHIEF COMPLAINT: Chest Pain HISTORY OF PRESENT ILLNESS Jeevan Ordaz Jr. is a 54 year old male with a PMH of ESRD (TTS), HTN, HLD, NIDDM who presents for Chest pain in the setting of hypertensive urgency and missed dialysis. Patient taken in custody today and was in police station when he experience chest pain, substernal, pressure like, with nasuea and SOB for which he was taken to hospital at [facility]. He reports that he has missed his dialysis twice with dialysis on Monday. Before the episode, he was just sitting watching tv, he usually get chest pain once a month. He reports occasionally smoking cigar, drinks 0.5 hard liquor every 2 weeks, denies drug use. FH with mother with DE in her 60s, limited paternal family history. He is legally blind, but reports he is fairly active at home, he takes [address] when he goes to his son house, he would have to stop once to catch his breath, usually doesn't any chest pain with walking. Currently he denies fever, cough SOB, chest pain, N/V, abodminal pain, dysuria, Hematochezia, melena, hematemesis, hemoptysis AT [facility] ER, patient was found to be tachycardiac and hypertensive. Lab work remarkable for micorcytic anemia (11.5), K 6.2, bicarb 21. Patient was shifted with insulin and started on lokelma. Patient transferred to [facility] for dialysis. Past medical history: has a past medical history of Depression, Diabetes mellitus, Diabetic retinopathy, ED (erectile dysfunction), Hyperlipidemia, Hypertension, and Legally blind. Past surgical history: has a past surgical history that includes direct laryngoscopy (N/A, 01/08/2018); incision and drainage of abscess (Left, 01/10/2018); eye surgery; tunneled catheter (shx) (02/02/2024); and arteriovenous fistula creation (Left, 02/29/2024). Social history: reports that he has been smoking cigarettes. He has a 5 pack-year smoking history. He has never used smokeless tobacco. He reports current alcohol use of about 12.0 standard drinks of alcohol per week. He reports current drug use. Drugs: Marijuana and Cocaine. Family history: family history includes Alcohol/Drug in his father; Diabetes in his maternal aunt, maternal grandmother, maternal uncle, and mother; Hypertension in his maternal aunt, maternal grandmother, maternal uncle, and mother; Stroke in his mother. Allergies: No Known Allergies MEDICATIONS reviewed REVIEW OF SYSTEMS See HPI PHYSICAL EXAMINATION Vitals: 09/07/24 2200 09/07/24 2230 09/07/24 2309 09/08/24 0032 BP: (!) 162/96 (!) 167/93 (!) 154/91 (!) 167/103 Pulse: 109 108 87 91 Resp: 18 18 18 16 Temp: 37.2 ?C (98.9 ?F) 36.8 ?C (98.2 ?F) TempSrc: Oral SpO2: 99% 100% 100% 95% Weight: 73.5 kg (162 lb) Height: General: alert and oriented, no apparent distress HEENT: white sclera, eye movements grossly intact, hearing is normal Neck: supple, no masses Lungs: clear to auscultation in all dominguez bilaterally, unlabored breathing Cardio: regular rate and rhythm, no murmurs or rubs, Abdomen: soft, non-tender, no masses palpated, positive bowel sounds Extremities: no clubbing, cyanosis, or edema Skin: no rashes or lesions, good turgor Neuro: grossly intact LABS - reviewed pertinent labs as below: Labs (last 24 hours): Chemistry CBC LFTs Coags, other 140 105 77 (H) 144 (H) 6.12 11.5 (L) 186 AST: 21 ALT: 11 PT: - INR: - 4.6 21 (L) 10.84 (H) 36.7 (L) AP: 57 T Dalton: 0.4 PTT: - eGFR: 5.1 Ca: 8.3 (L) % Elmer: 76.8 Prot: 7.4 Alb: 4.2 Lact: - Procal: - M.6 (H) PO4: 7.1 (H) ANC: 4.70 pBNP: - Trop I: 0.019 IMAGING - reviewed, pertinent results as below: CHEST 2 VIEWS Result Date: 09/07/2024 1. No acute process. RL: 1105 : NSR, No TWI or KOKI, interpreted by tn CHART REVIEWED ASSESSMENT/PLAN Jeevan Ordaz Jr. is a 54 year old male with PMH as listed above, admitted to the hospital with: Hyperkalemia 2/2 Missed Dialysis NAGMA Microcytic Anemia ESRD (TTS) Patient presenting with hyperkalemia in the setting of missed diaysis, last dialysis Monday. Patient also take ACEi- HCTZ combination pill, makes 1 oz of urine throughout the day. Initial K 6.2, shifted at [facility] with repeat K 4.6, plan to repeat BMP, EKG, place on telemetry. 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 EKG w/o TWI or KOKI. Initial trop wnl. Pain lasted for 1.5 hours, resolved with nitro but after 30 mins?. Last TTE 03/04 with EF 45-50%. FH with DE in mother in 60s. Smokes cigar occasionally, significant alcoholic history, no drug use. Fairly active at home, MET > 4, likely demand ischemia in the setting of HTN urgency, will trend trops and monitor - EKG - Trend troponin x2 - Telemetry - BP control, restart Amlodipine, added coreg - Hold ACEi HCTZ - Hydralazine IV prn with BP parameters - c/w lipitor - c/w eye gtt - SSI Pain ControlledTylenol Prophylaxis: DVT- heparin Stress Ulcer: no indication for prophylaxis Code Status: addressed: Full Code Bowel Regimen: PEG + Sennakot Estiven Tobar DO, PGY3 Internal Medicine Department DER LOADER Associated attestation - Guilherme Sheth MD - 09/08/2024 2:37 AM SKIDDER LOADER I personally examined the patient on 09/08/[address] Tobar's resident note as written. I actively participated in the decision-making process. Please see the resident's note for additional details. Guilherme Sheth MD Division of Internal Heavy Equipment Engine MechanicStarting Gate Driver [facility] 2024-02-29 06:39:38 Patient seen and examined in [...] propionate 50 mcg/actuation nasal spray Use 1 Chester in each nostril. sodium bicarbonate 650 mg [...] every evening. lancets (FREESTYLE LANCETS) 28 gauge [facility] [...] considered low risk for perioperative cardiac complications. [facility] 2024-02-15 13:45:00 Vascular Surgery Clinic Note Date [...] Petey Looney MD; Location: [facility] EYE SURGERY INCISION AND DRAINAGE OF ABSCESS Left 01/10/2018 Surgeon: Nitish Bajwa MD; Location: [facility] TUNNELED CATHETER (SHX) 02/02/2024 RT IJ tunneled [...] propionate 50 mcg/actuation nasal spray Use 1 Chester in each nostril. sodium bicarbonate 650 mg [...] every evening. lancets (FREESTYLE LANCETS) 28 gauge [facility] [...] considered low risk for perioperative cardiac complications. T [facility] 2024-02-02 08:12:56 Surgery H&P Update 02/02/2024 8:13 [...] note below for review. Denisse Cabrera MD [facility] General Surgery 02/02/2024 8:13 AM Associated attestation [...] N/A 01/08/2018 Surgeon: Petey Looney MD; [facility] EYE SURGERY INCISION AND DRAINAGE OF ABSCESS Left 01/10/2018 Surgeon: Nitish Bajwa MD; [facility] Allergies: No Known Allergies Medications: Patient's Medications [...] PROPIONATE 50 MCG/ACTUATION NASAL SPRAY Use 1 Chester in each nostril. INSULIN GLARGINE (LANTUS U-100 [...] times daily. LANCETS (FREESTYLE LANCETS) 28 [facility] USE ONE LANCET TO CHECK BLOOD GLUCOSE [...] propionate 50 mcg/actuation nasal spray Use 1 Chester in each nostril. latanoprost 0.005 % ophthalmic [...] by mouth. lancets (FREESTYLE LANCETS) 28 gauge [facility] [...] othopnea, claudication, edema, coronary artery disease/history of DE Respiratory: Cough, sputum production, hemoptysis, wheezing, shortness [...] COVID-19 tests the patient has had at [facility]: molecular nucleic acid amplification tests (NAAT) (specifically PCR testing and Rapid ID Now testing) and antibody tests. It does not take into account antigen testing or any additional testing that a patient may have had outside of the [facility] medical record. COVID Results SARS-CoV-2 Rapid ID [...] of surgery Michelle Moscoso M.D. 01/22/2024 13:[address] [facility] - Health Procedure Notes Date/Time Note Provider Source 2024-02-29 [...] EPI 1:200K Sedation: Midazolam 1 AN-ANESTHESIOLOGY ANESTHESIOLOGIST [facility] Notes Date/Time Note Provider Source 2024-10-19 09:13:00 Regarding: tingling in feet, numbness, anxiety, unable to sleep ----- Message from Patient Patcher Wood Welder sent at 10/19/2024 9:12 AM SKIDDER LOADER ----- Jeevan Ordaz Jr. is a 54 year old male Patient is calling, he wants to speak with a nurse he has tingling in his feet, numbness, he feeling of anxiety, unable to sleep for a few months now is getting worse. DER LOADER Selene Ulloa RN [facility] 2024-10-19 09:13:00 Adult Triage Assessment Last Clinic Visit: 09/07/24 hospital admission Primary Symptom: "my feet from my ankles down are numb, tingling" "I went on google and it said to call my neurologist" Onset / Duration: "a while now" 8-9 months symptoms worsened 1 month ago, pt has gone to dialysis since these symptoms began Location / Description: both feet Pain / Severity: 0 out of 10 Associated Symptoms: not sleeping , anxiety Fever / Method: denies Hydration: no changes to I/O Treatment so far: none Effect on ADL's: some LMP: n/a Pre-existing condition / Immunocompromised: Uncontrolled type 2 diabetes mellitus with hyperglycemia Stroke Abnormal finding on CT scan Chronic arterial ischemic stroke Hypertension Mixed hyperlipidemia Erectile dysfunction Neuropathy of both feet Legal blindness Excessive daytime sleepiness Shortness of breath Reason for Disposition [1] Numbness or tingling in one or both hands AND [2] is a chronic symptom (recurrent or ongoing AND present > 4 weeks) Protocols used: Neurologic [id number] Nurse Note: after assessment, pt was provided call back parameters. Encounter routed to clinic for sooner appt per protocol. Access Center Selene Ulloa RN DER LOADER [facility] 2024-09-10 10:20:08 TRANSITIONAL CARE MANAGEMENT ASSESSMENT 09/10/2024 Jeevan Ordaz Jr. [id number] Jeevan Ordaz Jr. is a 54 year old /White male was admitted on 09/07/[address] He was discharged on 09/08/24 with discharge disposition of HR- Routine Discharge. Admitting Physician: Guilherme Sheth Discharge Diagnosis: FINAL DIAGNOSIS: (the reason, after study, for admitting the patient to the hospital) Hyperkalemia 2/2 Missed Dialysis No linked episodes TCM [id number] outreach documentation: Discharge Assessment Chart Assessed: 09/10/24 Chart Reviewed - Post Discharge Call Deferred due to Change in Discharge Status.: Discharged to A TCM Outreach Completed: 09/10/24 Future Appointments: ICA Salguero RN [facility] 2024-09-08 11:23:02 Problem: Falls, Risk of Goal: Absence of falls Outcome: Progressing as expected Problem: Pain Goal: Control of pain at or below patient's documented comfort goal Outcome: Progressing as expected Problem: Glucose control Goal: Glucose level within specified parameters Outcome: Progressing as expected DER LOADER Wendy Walsh RN [facility] 2024-09-08 01:47:06 Problem: Falls, Risk of Goal: Absence of falls Outcome: Progressing as expected Problem: Pain Goal: Control of pain at or below patient's documented comfort goal Outcome: Progressing as expected Problem: Glucose control Goal: Glucose level within specified parameters Outcome: Progressing as expected [facility] 2024-09-07 23:11:50 Patient transferred to [facility] for diagnosis of Chest pain, hyperkalemia, CKD, Hypermagnesemia, Hypocalcemia, Sinus Tachycardia Patient agrees to transfer/admit plan and verbalized understanding of plan of care, family aware of plan Patient awake alert, oriented, resp reg unlabored, skin w/d PIV patent, no s/s infiltration noted, No adverse reaction to medications given while in ED. Report given to [facility] EMS personnel ICA Schafer RN [facility] 2024-09-07 22:57:30 Report to JOAN Mars at [facility]. [facility] 2024-09-07 22:51:37 Nurse Report Report given to JOAN Lagunas. Chief complaint, assessment findings, infusion verify and orders reviewed. Plan of care discussed with both nurses ICA Clayton RN [facility] 2024-09-07 18:36:14 Patient arrives via EMS coming from custodial with c/o chest pain x 1 hour. Patient given nitro SL 0.4 in route and ASA 324 PO. Patient describes his chest pain as chest pressure. Patient has missed his last 2 dialysis appointments. Hypertensive in triage. Placed on monitor . PD at bedside DER LOADER Filippo Galicia RN [facility] 2024-07-15 14:15:00 Images from the original note were not included. Venipuncture collection performed by clean technique on the right anticubitus. Total of 1 attempts were made. Slight pressure and a bandage/dressing were applied to the site(s). The patient experienced no complications. The following specimens were processed according to instructions and sent to [facility] laboratories per lab order on 07/15/2024: LT BLUE SST 1 RED LAV PPT DK GREEN (LiHep) DK GREEN (SodH) MAXWELL DK BLUE (K2) DK BLUE (S) ACD Blood Culture NIPT/NTD [facility] 2024-07-15 13:40:11 Pt received call from dialysis center and was told to go to lab and does not need to be seen at ED. Pt eloped at this time from triage. [facility] 2024-07-15 13:33:08 Pt states he hasn't had dialysis in 8-9 days due to noncompliance and mental health issues. Last dialysis 07/04. Gets dialysis Monday, , Monday. Currently denies sxs. DER LOADER Mariza Harris RN [facility] 2024-04-03 06:09:00 Pt given printed and verbal [...] in no apparent distress. Margaret Ramires RN [facility] 2024-04-03 03:30:46 Pt states around 1800 today he began to have pain under the right shoulder blade. Pt denies any SOB. Nesha Huber RN [facility] 2024-04-03 03:26:[address] [facility] Emergency Department Note Patient Name: Jeevan Ordaz Jr. Date of : 1970 53 year old male Treatment [facility]: [facility] Primary Care Physician: Trung Crawford Patient Escorted by: Family [5] Mode of Arrival: Personal means [1] EMS Treatment Prior to ED Arrival: BATCH AND FURNACE MANAGER treatment: None Travel and Exposure Screening: Symptoms [...] He is an ESRD patient and goes M/W/. He is scheduled to have HD later [...] Left 02/29/2024 Surgeon: Andrei Yanes MD; Location: [facility] OR LOCATION DIRECT LARYNGOSCOPY N/A 01/08/2018 Surgeon: Petey Looney MD; Location: [facility] EYE SURGERY INCISION AND DRAINAGE OF ABSCESS Left 01/10/2018 Surgeon: Nitish Bajwa MD; Location: [facility] TUNNELED CATHETER (SHX) 02/02/2024 RT [...] Eval: ED Events Date/Time Event User Comments 04/03/24327 Medical Screening Begins BERENICE ASHER DO -- 04/03/24327 First Provider Evaluation BERENICE ASHER DO -- ED COURSE Diagnosis/Impression as [...] He is an ESRD patient and goes M/W/. He is scheduled to have HD later [...] PROPIONATE 50 MCG/ACTUATION NASAL SPRAY Use 1 Chester in each nostril. HYDROCODONE-ACETAMINOPHEN 5-325 MG TABLET Take 1 tablet by mouth. LANCETS (FREESTYLE LANCETS) 28 [facility] USE ONE LANCET TO CHECK BLOOD GLUCOSE [...] Electronically signed by: Berenice Asher DO 04/03/24601 [facility] 2024-03-05 12:27:02 Called and spoke to patient. Doing better. Will follow up in clinic [facility] 2024-03-01 13:45:44 Images from the original note [...] understanding. Per discharge note: Deborah Kaplan RN [facility] 2024-02-29 10:01:48 Patient: Jeevan Ordaz Jr. Procedure Summary Date: 02/29/24 Room / Location: [address] Anesthesia Start: 719 Anesthesia Stop: 911 Procedure: ARTERIOVENOUS FISTULA CREATION (Left: Arm) Diagnosis: ESRD (end stage renal disease) (ESRD (end stage renal disease) [N18.6], ARTERIOVENOUS FISTULA CREATION) Surgeons: Andrei Yanes MD Responsible Provider: Patrick Whyte MD Anesthesia Type: General, TIVA, MAC, Regional ASA Status: 3 Anesthesia Type: General, TIVA, MAC, Regional Last vitals BP (!) 144/80 (02/29/2445) Temp Pulse 68 (02/29/2445) Resp (!) 4 (02/29/24944) SpO2 98 % (02/29/24944) There were no [...] status: acceptable Hydration status: acceptable AN-ANESTHESIOLOGY ANESTHESIOLOGIST [facility] 2024-02-29 07:59:00 BRIEF OPERATIVE NOTE Date of Surgery: 02/29/2024 Surgeons and Role: * Andrei Yanes MD - Primary * Carlos Ramírez MD - Resident - Assisting Pre-Op Diagnosis: ESRD (end stage renal disease) [N18.6] Post-Op Diagnosis Codes: * ESRD (end stage renal disease) [N18.6] Procedures: Procedure(s) (LRB): ARTERIOVENOUS FISTULA CREATION (Left) CPT: 61045, 41769, 08121, 73495, 59430, 57532, Any Complications Encounters: None Estimated Blood Loss: 10cc Specimens Removed: * No specimens in log * * No implants in log * Patient's Condition: Good Findings: Brachiocephalic AVF created. Palpable thrill. Distal radial pulse palpated Any other important information: None Please see dictated operative report for additional detail. [facility] 2024-02-23 08:46:48 NOT $$ CLEARED NOT CONTRACTED FOR TRANSPLANT LETTER SENT Submitted for financial review 02/21/24 Pati Blank [facility] 2024-02-21 11:02:24 Referral received via: fax How did the patient hear about our program: outreach Submitted for financial clearance Insurance Information: [employer] ID#[id number] ph: SSN: [id number] Weight: 156lbs Height: 5'8" Referring MD: Member Name Role and Specialty Contact Info Address Comments Trung Crawford DO Referring Pager: [phone] Email: [email or web address] [address] [place] [address] - highway administrative engineer: What caused the patients' disease? unknown Is the patient on dialysis? yes [facility] Address: [address] [address] Which organ are you referring the patient [...] heart disease: no Do you have a journeyman machinist? No Have you ever had any amputations? [...] yes: Please have your living donor call [phone] and and speak to the Living Donor Hospice Case Manager Coordinator. The assistant curator will take their information and provide directions for their next step Berenice Coyne [facility] 2024-02-19 10:02:12 Name/ MRN / Age / Gender: Jeevan Ordaz Jr., [id number] 53 year old male BMI: Estimated body [...] Procedure: ARTERIOVENOUS FISTULA CREATION (Left) OR Location: [facility] OR [facility] Anesthesia Preop Eval (physical exam) Anesthesia Preop: [id number] APAC Communication: Called and spoke with patient [...] he quit 2 weeks ago.) (-) HIV IDEA MAN IDEA MAN N/A Pediatric Pediatric N/A N/A Preoperative Medication Instructions Continue taking all prescribed medications except: JO inhibitors, ARBs, diuretics, all oral diabetes medications Anticoagulant Therapy: Defer to surgeons Insulin: Take 1/2 dose the night prior to surgery. Hold on DOS. Phentermine: Alert [facility] anesthesiologist SGLT2 Inhibitors: "gliflozins" to be [...] propionate 50 mcg/actuation nasal spray Use 1 Chester in each nostril. latanoprost 0.005 % ophthalmic drops Place 1 Drop in both eyes every evening. sodium bicarbonate 650 mg tablet TAKE 1 TABLET BY MOUTH IN THE MORNING AND 1 AT NOON AND 1 IN THE EVENING WITH MEALS traZODone 50 mg tablet Take 1 tablet by mouth as needed. lancets (FREESTYLE LANCETS) 28 gauge [facility] [...] N/A 01/08/2018 Surgeon: Petey Looney MD; Location: [facility] EYE SURGERY INCISION AND DRAINAGE OF [...] mask Anesthesia plan discussed with: patient or senior patient account representative Post-Operative Analgesia: routine analgesia & antiemetics and nerve block for post-op analgesia Recovery Plan: PACU Additional comments: NPO>8hrs. Consent obtained and questions answered. Pt agrees with anesthetic plan. BELKIS Mota [facility] 2024-02-15 14:35:49 Images from the original note were not included. Your procedure is at [facility] on 02/29/24. The address is [address] [place] [address], [facility]. [facility] nursing staff will call you [...] voiced no further questions at this time. [facility] 2024-02-07 08:57:38 Spoke with patient and spouse. Educated dialysis nurse should be maintaining dressing changes during dialysis. States they have not been set up for dialysis s/p permacath placement. Instructed patient to reach out to nephrology (Dr Crawford) to set up dialysis. Patient and spouse verbalized understanding. Patient to contact the clinic if unable to get in with dialysis. Deborah Kaplan RN [facility] 2024-02-06 17:15:31 Jeevan Paldee Llanos is a 53 year old male pt and spouse are calling to check the status of the call back. Kathy Johnston 02/06/2024 5:16 PM Kathy Johnston [facility] 2024-02-06 16:26:37 Pt had surgery with Dr. Moscoso 02/01/25 and is calling stating he is needing his dressing changed and was not given any supplies. Pt has PO appt 02/15/24, please advise and assist. Lucila Gage [facility] 2024-02-03 19:23:02 Pt told registration that they were leaving didn't want to wait. Yoselin Johnson RN [facility] 2024-02-03 18:47:37 Patient states: "I had surgery yesterday for dialysis catheter placement. Today I noticed it leaking with blood and fluid." Val Malcolm RN [facility] 2024-02-02 16:15:00 Images from the original note were not included. Venipuncture collection performed by clean technique on the left anticubitus. Total of 1 attempts were made. Slight pressure and a bandage/dressing were applied to the site(s). The patient experienced no complications. The following specimens were processed according to instructions and sent to [facility] laboratories per lab order on 02/02/2024: LT BLUE SST 1 RED LAV 1 PPT DK GREEN (LiHep) DK GREEN (SodH) MAXWELL DK BLUE (K2) DK BLUE (S) ACD Blood Culture NIPT/NTD [facility] 2024-02-01 09:44:30 Spoke with spouse, aware procedure is scheduled for 02/02/24 and that day surgery would be calling today and to be sure to answer. Spouse verbalized understanding. Deborah Kaplan RN [facility] 2024-02-01 08:58:18 Images from the original note were not included. Your procedure is at [facility] on 02/02/24. The address is [address] [place] [address], [id number]. [facility] nursing staff will call you [...] voiced no further questions at this time. [facility] 2024-02-01 08:54:03 I believe the patient has been rescheduled for 02/02/2024, however if he does not respond for preoperative instructions his case will be cancelled again. [facility] 2024-02-01 08:15:00 The patient was called for his Pre-op screening call and he said something about he had a rash that went from his stomach to his legs and arm pits. He also says his can no longer see it but it still itches. He would like a call from Dr. Mocsoso nurse to decide to continue tomorrow or have his doctor check him out and reschedule. Message sent to Jael Moscoso's nurse. Telma Olvera RN [facility] 2024-01-31 15:20:52 Patient and spouse present in [...] no answer. LVM requesting patient call office. RIOT Jael Ruiz RN [facility] 2024-01-30 11:54:01 Could we see if we can get the patient back on the schedule for this Monday please? [facility] 2024-01-30 09:25:25 Called patient back to discuss [...] any questions. Number provided. Yany Miller RN [facility] 2024-01-30 08:08:38 Jeevan Ordaz Jr. is a 53 year old male Patient is calling back upset requesting to speak with staff to discuss cancellation of surgery. Please contact at earliest convenience Vaelry Mcmahon [facility] 2024-01-30 07:59:06 Jeevan Ordaz Jr. is a 53 year old male Pt is extremely upset that his surgery was cancelled and no one called him to cancel. Pt would like to know what he is supposed to do now. Please contact pt. Rosita Manuel [facility] 2024-01-29 12:26:42 Attempted to call X 10, text message X 2, to speak with patient to complete pre-op screening call. All available numbers attempted. Sent cancellation. Yany Miller RN [facility] 2024-01-29 11:55:44 Attempted to call every number listed for this patient, including emergency contacts. Patient not answering, messages left that if he does not call today before noon that surgery will be canceled. Also texted patient and child's listed number and informed them that way as well. Jael Ruiz RN [facility] 2024-01-22 13:00:00 Addended by: WILDA GONZALEZ LVN on: 01/22/2024 03:06 PM Modules accepted: Orders [facility] 2023-12-28 13:01:50 Reason for Referral/Presenting Complaint: Preoperative cardiovascular examination (prior to AV fistula surgery). Preoperative cardiovascular faxed to Dr. Crawford. [facility] Fax number: [phone] Care Team: [address] [place] [address] [address] [place], [place] [facility] 2023-10-12 15:00:11 Jeevan Ordaz Jr is a 53 year old male is calling to discuss assistance with payments. Please call him at [phone] DER LOADER Kristyn Ospina [facility] 2023-10-10 15:44:47 Called Mr. OrdazINDIRA we are no in network with his insurance. Self pay dinh is 136.50. DER LOADER Slime Ramires [facility] 2023-09-15 22:36:58 Patient leaving AMA/without final disposition,Patients [...] with steady gait, appears in no distress [facility] Nesha Huber RN [facility] 2023-09-15 22:35:35 Patient requested to speak to Singer SORIA. Patient changed his mind and does not want to be admitted to hospital at this time. Risks explained to patient and patient was able to verbalize risks and reports understanding. AMA form signed. IV line removed. Patient in stable condition when leaving the ER. Ambulatory with steady gait. ICA Champion RN [facility] 2023-09-15 22:09:53 Nurse Report Report given to JOAN Sawyer over the phone, no questions received. Chief complaint, assessment findings and medications were discussed. Plan of care discussed with patient, patient aware of plan. Patient in stable condition at time report was given,no distress. Vital signs reassessed. Patient pending EMS to pick remover and transport. Ashley Champion RN [facility] 2023-09-15 21:12:11 Patient given a sandwich and juice - tolerating well. [facility] 2023-09-15 18:58:01 Patient's name and verified [...] of plan of care. Ashley Champion RN [facility] 2023-09-15 18:20:12 Patient states: "[facility] and they diagnosed me [...] prescriptions. 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 [facility] 2023-09-15 18:00:[address] 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 Original note by Andreina Hoffman, RN at 09/15/2023 18:21 History of Present [...] N/A 01/08/2018 Surgeon: Petey Looney MD; Location: [facility] OR [facility] EYE SURGERY INCISION AND DRAINAGE OF ABSCESS Left 01/10/2018 Surgeon: Nitish Bajwa MD; Location: [facility] Review of Systems: Review of Systems [...] 0.01 - 0.09 10*3/uL COMP. METABOLIC PANEL (29414) - Abnormal NA 138 135 - 145 [...] VW Cbc with Diff Comp. Metabolic Panel (95893) N-Terminal Pro-Bnp Troponin I Urinalysis RAPID INFLUENZA [...] old male with new onset renal failure. 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 BNP elevated 8300. Tachycardic. No hypoxia. Accelerated hypertension. Coordinated admission at [facility]. Prior to ambulance arriving patient declined admission [...] times daily. LANCETS (FREESTYLE LANCETS) [facility] LANCET TO CHECK BLOOD GLUCOSE [...] on file Follow-up: Contact information for follow-up Aglieco, Trung G, DO Specialty: IM-NEPHROLOGY Relationship: PCP - General [facility] [place] [address] Electronically signed by: Grady Thrasher DO 09/15/232237 [facility]
[2024-12-21] MEDS ORDERED: ACETAMINOPHEN 500 MG TAB ONE (17:14)
[2024-12-21 17:52] LABS: Influenza A Ag Negative; Influenza B Ag Negative; SARS-CoV-2 Antigen Rapid Res Negative (Negative)
--- NOTE | 2024-12-21 18:00 | ER ---
Nurse's Notes [facility] Name: Amor Ramírez Jr Age: 54 yrs Sex: Male : 1970 Arrival Date: 12/21/2024 Time: 16:58 Bed IW1 Private MD: Diagnosis: Viral infection, unspecified Presentation: 12/21 17:17 Chief complaint: Patient states: runny nose, itchy throat, cough, body aches onset 2 cm10 days ago. pt saw pcp and was diagnosed with allergies. Coronavirus screen: Client denies travel out of the [place] in the last 14 days. Ebola Screen: Patient denies travel to an Ebola-affected area in the 21 days before illness onset. Initial Sepsis Screen: Does the patient meet any 2 criteria? HR > 90 bpm. Does the patient have a suspected source of infection? No. Patient's initial sepsis screen is negative. Risk Assessment: Do you want to hurt yourself or someone else? Patient reports no desire to harm self or others. Onset of symptoms was December 21, 2024. 17:17 Method Of Arrival: Wheelchair cm10 17:17 Acuity: YADIEL 3 cm10 Triage Assessment: 17:18 General: Appears in no apparent distress. uncomfortable, Behavior is calm, cooperative. cm10 Neuro: No deficits noted. Level of Consciousness is awake, alert, obeys commands, Oriented to person, place, time, situation, Appropriate for age. Respiratory: No deficits noted. Airway is patent Respiratory effort is even, unlabored, Respiratory pattern is regular, symmetrical. Historical: - Allergies: 17:18 NKDA; cm10 - PMHx: 17:18 Diabetes - IDDM; ESRD- Dialysis T; ESRD- Dialysis T; Hypercholesterolemia; cm10 Hypertension; restless leg syndrome; TIA; - PSHx: 17:18 Dialysis fistula- left arm; cm10 - Immunization history:: Adult Immunizations up to date. - Infectious Disease History:: Denies. - Social history:: Smoking status: unknown. Screenin:00 [facility] ED Fall Risk Assessment (Adult) History of falling in the last 3 months, cm10 including since admission No falls in past 3 months (0 pts) Confusion or Disorientation No (0 pts) Intoxicated or Sedated No (0 pts) Impaired Gait Yes (1 pt) Mobility Assist Device Used Yes (1 pt) Altered Elimination No (0 pt) Score/Fall Risk Level 0 - 2 = Low Risk Oriented to surroundings, Maintained a safe environment, Hourly rounding (assess needs \T\ fall precautionary measures) done. Abuse screen: Denies threats or abuse. Denies injuries from another. Nutritional screening: No deficits noted. Tuberculosis screening: No symptoms or risk factors identified. Assessment: 18:15 General: PT states that he would like to leave at this time. AMA paperwork signed. pt cm10 leaving with family member via wheelchair. PT A\T\Ox4 at the time of departure. pt verbalized understanding of the risks of leaving before care was completed.. Vital Signs: 17:17 BP 175 / 93; Pulse 110; Resp 20; Temp 100(O); Pulse Ox 99% ; Weight 70.31 kg; Height 5 cm10 ft. 8 in. ; Pain 9/10; 17:17 Body Mass Index 23.57 (70.31 kg, 172.72 cm) cm10 17:17 Pain Scale: Adult cm10 ED Course: 17:03 Patient arrived in ED. cj3 17:[address], JOAN is Primary Nurse. cm10 17:04 Isaiah Hernandez FNP-C [facility]. cm10 17:04 Nato Macias MD is Attending Physician. cm10 17:18 Triage completed. cm10 17:18 Arm band placed on right wrist. Patient placed in waiting room. cm10 17:22 Group A Streptococcus Rapid Sent. cm10 17:22 COVID-19 Ag + Flu A+B Ag Sent. cm10 18:15 Patient has correct armband on for positive identification. Provided Education on: AMA cm10 paperwork.. Administered Medications: 17:21 Drug: Acetaminophen PO 1000 mg PO once Route: PO; cm10 18:15 Follow up: Response: No adverse reaction cm10 Medication: 18:00 VIS not applicable for this client. cm10 Outcome: 18:00 Discharge ordered by . suyapa 18:34 AMA AMA form signed cm10 18:34 Condition: good 18:34 Instructed on AMA paperwork 18:35 Patient left the ED. cm10 Signatures: Mena Way RN RN cm10 Isaiah Hernandez FNP-C PAPER PATTERN FOLDER-Cdr5 Elisha Bower cj3
--- NOTE | 2024-12-21 18:36 | EDPHYS ---
Physician Documentation [facility] Name: Amor Ramírez Jr Age: 54 yrs Sex: Male : 1970 Arrival Date: 12/21/2024 Time: 16:58 Bed IW1 Private MD: ED Physician Nato Macias HPI: 12/21 18:21 This 54 yrs old Male presents to ER via Wheelchair with complaints of Flu dr5 Symptoms. 18:21 Patient is a 54-year-old male with history of diabetes, hyperlipidemia, hypertension, dr5 and on dialysis coming in for flulike symptoms with cough and runny nose that started 2 days ago. Patient reports that he went to the primary care doctor and they did not do any swabs to rule out influenza or COVID. Pt denies chest pain, shortness of breath. Patient states he completed dialysis today from 10am - 3pm.. Historical: - Allergies: 17:18 NKDA; cm10 - PMHx: 17:18 Diabetes - IDDM; ESRD- Dialysis T; ESRD- Dialysis T; Hypercholesterolemia; cm10 Hypertension; restless leg syndrome; TIA; - PSHx: 17:18 Dialysis fistula- left arm; cm10 - Immunization history:: Adult Immunizations up to date. - Infectious Disease History:: Denies. - Social history:: Smoking status: unknown. ROS: 18:21 Constitutional: as per hpi dr5 Exam: 18:21 Constitutional: This is a well developed, well nourished patient who is awake, alert, dr5 and in no acute distress. Head/Face: Normocephalic, atraumatic. Eyes: Pupils equal round and reactive to light, extra-ocular motions intact. Lids and lashes normal. Conjunctiva and sclera are non-icteric and not injected. Cornea within normal limits. Periorbital areas with no swelling, redness, or edema. Neck: Trachea midline, no thyromegaly or masses palpated, and no cervical lymphadenopathy. Supple, full range of motion without nuchal rigidity, or vertebral point tenderness. No Meningismus. Chest/axilla: Normal chest wall appearance and motion. Nontender with no deformity. No lesions are appreciated. Cardiovascular: Regular rate and rhythm with a normal S1 and S2. Normal PMI, no JVD. No pulse deficits. Respiratory: Lungs have equal breath sounds bilaterally, clear to auscultation. No rales, rhonchi or wheezes noted. No increased work of breathing, no retractions or nasal flaring. Abdomen/GI: Soft, non-tender, non-distended Back: No spinal tenderness. No costovertebral tenderness. Full range of motion. Skin: Warm, dry with normal turgor. Normal color with no rashes, no lesions, and no evidence of cellulitis. Neuro: Awake and alert, GCS 15, oriented to person, place, time, and situation. Cranial nerves II-XII grossly intact. Motor strength 5/5 in all extremities. Sensory grossly intact. Cerebellar exam normal. Normal gait. Vital Signs: 17:17 BP 175 / 93; Pulse 110; Resp 20; Temp 100(O); Pulse Ox 99% ; Weight 70.31 kg; Height 5 cm10 ft. 8 in. ; Pain 9/10; 17:17 Body Mass Index 23.57 (70.31 kg, 172.72 cm) cm10 17:17 Pain Scale: Adult cm10 MDM: 17:24 Medical Screening Exam initiated dr5 18:21 Differential diagnosis: viral Infection, bacterial infection, URI, pneumonia. Data dr5 reviewed: vital signs, nurses notes. Care significantly affected by the following chronic conditions: Diabetes, Hypertension. Care significantly affected by the following Social Determinants of Health: Poor access to healthcare and/or lack of insurance, Poor access to transportation, Problems related to employment. Counseling: I had a detailed discussion with the patient and/or guardian regarding the historical points, exam findings, and any diagnostic results supporting the discharge/admit diagnosis. ED course: Patient states that due to patients in the lobby being sick, he wants to leave and go be seen by Julianna. Explained risks and benefits of not waiting for x-ray. STRICT ER precautions given. AMA signed for not waiting for chest x-ray. Swabs are negative.. 04 17:16 Order name: COVID-19 Ag + Flu A+B Ag; Complete Time: 17:59 cm10 12/21 17:16 Order name: Group A Streptococcus Rapid; Complete Time: 17:43 cm10 12/21 17:45 Order name: Throat Culture EDMS Administered Medications: 17:21 Drug: Acetaminophen PO 1000 mg PO once Route: PO; cm10 18:15 Follow up: Response: No adverse reaction cm10 Disposition: 20:25 Co-signature as Attending Physician, Nato Macias MD I reviewed the patient's care rt provided by the Advanced Practice Provider and agree with the diagnosis and treatment plan. Disposition Summary: 12/21/24 18:00 Discharge Ordered Notes: Location: Home dr5 Condition: Stable dr5 Diagnosis - Viral infection, unspecified dr5 Followup: dr5 - With: Emergency Department - When: As needed - Reason: Worsening of condition Followup: dr5 - With: Private Physician - When: 1 - 2 days - Reason: Recheck today's complaints, Continuance of care, Re-evaluation by your physician Discharge Instructions: - Discharge Summary Sheet dr5 - Viral Illness, Adult dr5 Forms: - Medication Reconciliation Form dr5 - Patient Portal Instructions dr5 - Leadership Thank You Letter dr5 Signatures: Dispatcher [employer] EDIN Nato Macias MD MD rt Mena Way RN RN cm10 Isaiah Hernandez, STEAM BLOCKER-C STEAM BLOCKER-Cdr5 Corrections: (The following items were deleted from the chart) 18:22 18:21 Patient is a 54-year-old male with history of diabetes, hyperlipidemia, dr5 hypertension, and on dialysis coming in for flulike symptoms with cough and runny nose that started. dr5
[2024-12-21 19:18] VITALS: BP 175/93; TEMP 100; O2SAT 99
== END 2024-12-21 18:35 | disposition home or self-care (01) ==
LOC: ER 16:58
DX: B34.9 Viral infection, unspecified (principal); E11.22 Type 2 diabetes mellitus with diabetic chronic kidney disease; I12.0 Hypertensive chronic kidney disease with stage 5 chronic kidney disease or end stage renal disease; N18.6 End stage renal disease; Z99.2 Dependence on renal dialysis; Z11.52 Encounter for screening for COVID-19
CPT/HCPCS: 36415; 87070; 87428; 99283

== ENCOUNTER 2025-06-28 16:30 | Emergency (ER) | payer OTHER ==
--- OUTSIDE RECORDS SUMMARY | 2025-06-28 16:48 | XMS REPORT | Continuity of Care Document ---
Author Name Unknown Address [address] [facility] [address] [place] [address] [facility] Address [address] [facility] [address] [place] [address] Care Team Providers Care Psychologists Name Role Phone INGA PHAM Soares Primary Care Physician MICHELLE Mcmillan Attending Clinician Unavailable Yunier Barrow Attending Clinician Unavailable Rahul Jasmine Attending Clinician Unavailable LISA GARCIA Attending Clinician Unav ailLISA Lai Attending Clinician Unav ailJESUS Yanes Attending Clinician Un available VIJI GOMEZ Attending Clinician Unavailable JOSE ANGEL CHA Attending Clinician Unavailable HUI BUSTAMANTE Attending Clinician Unavailable CLEO MADRIGAL Attending Clinician UnavailCLEO Fan Attending Clinician UnavailLisa Stephenson MD Attending Clinician + MOLLY HANSEN Attending Clinician Unavailable Oren Posada Attending Clinician PAMELLA JOHNS Attending Clinician Unavailable PAMELLA JOHNS Attending Clinician Unavailable Noemy FRANCO, Radu Guadarrama Attending Clinician Unavail able BRADLEY DRIVER Attending C linician Unavailable Chan SWEET, Bethanie Attending Clinician [phone] Romulo SWEET, Frederick Curiel Attending Clinician [phone] Gregg FRANCO, Rosita Borja Attending Clinician Unavail able JOHN REAL Attending Clinician Unavailable Fany CISNEROS Attending Clinician Unavailable Fany CISNEROS Attending Clinician Unavailable Fany Crane Attending Clinician [phone] REENA ASTORGA Attending Clinician Unavailable Doctor Unassigned, Wall Lane Attending Clinician U desi Ulloa RN, Selene Mora Attending Clinician Unavaila ED Portillo Attending Clinician Unavail able Stan QUINN, Honey Attending Clinician [phone] Ed Mcgowan DO Attending Clinician [phone] Olga SWEET, Guilherme Romero Attending Clinician [phone] JEREMIAH CRAWFORD Attending Clinician Unavailable STEVE GUERIN Attending Clinician Unavailable STEVE GUERIN Attending Clinician Unavailable Steve Guerin MD Attending Clinician [phone] ANDREI YANES Attending Clinician Unavailable BERENICE ASHER Attending Clinician Unavailab BERENICE Saldaña Attending Clinician Unavailab Jessica Barbosa CRNA Attending Clinician [phone] Patrick Whyte MD Attending Clinicia n Geovanna Griffin MD Attending Clinician [phone] Estiven Haas MD Attending Clinician [phone] GALLO SMITH Attending Clinician Unavailable Magdalene SWEET, Gallo Attending Clinician [phone] Michelle Moscoso MD Attending Clinician [phone] DARRION WILKES Attending Clinician Unavailable DARRION WILKES Attending Clinician Unavailable 2, [facility] Attending Clinician Unavailable Jeremiah Crawford DO Attending Clinician [phone] Doctor Unassigned, Wall Lane Attending Clinician U navailable AIMEE YUAN Attending Clinician Unavailable AIMEE YUAN Attending Clinician Unavailable Deanne Gibbons Attending Clinician HARRY THRASHER Attending Clinician Unavailable Harry Thrasher DO Attending Clinician [phone] Chip Talavera DO Attending Clinician [phone] GAYLORWendy_S Attending Clinician Unavailable Treasure Hernandez Attending Clinician [phone] Deshazo_T Attending Clinician Unavailable Ghazala Akhtar MD Attending Clinician [phone] Melony Corado Attending Clinician [phone] DAVIDSON TORRES Attending Clinician Unavailable Davidson Torres MD Attending Clinician [phone] GHAZALA AKHTAR Attending Clinician Unava ilable Lobo DIRECTOR [employer] Attending Clinician [phone] Fortunato Luna Attending Clinician [phone] FORTUNATO HEDRICK Attending Clinician Unavailable RUSLAN POSADAS Attending Clinician Unav ailable WILLIAM HERMAN Attending Clinician Unavaila ble PEDRO HERMANHIL T Attending Clinician Unavaila BENNETT Gonzalez Attending Clinician Unavailable TON GALINDO Attending Clinician UnavailSHELBY Currie Attending Clinician Unavailable MICHELLE MOSCOSO Admitting Clinician Unavailable AP BELTRÁN Admitting Clinician Unavailable OREN KIGN Admitting Clinician Unavailable MARTELL GANDHI Admitting Clinician Unavailabl PAMELLA Alvarez Admitting Clinician Unavailable JOHN REAL Admitting Clinician Unavailable GUILHERME SHETH Admitting Clinician Unavailab Guilherme Aldana MD Admitting Clinician [phone] BERENICE ASHER Admitting Clinician Unavailab ANDREI Boone Admitting Clinician Unavailable GALLO SMITH Admitting Clinician Unavailable Michelle Moscoso MD Admitting Clinician [phone] LE, CHIP Admitting Clinician Unavailable Le DO, Chip Admitting Clinician GAYLORD_S Admitting Clinician Unavailable Deshazo_T Admitting Clinician Unavailable Payers Payer Name Policy Type Policy Number Effective Date Expirati on Date Source TEREZA [employer] MOHAWK [id number] 00:00:00 KENROY CRAIG [id number] 2019 00:00:00 [employer] DUAL COMP CHOICE PPO DSNP [id number] 2024 00:00:00 MEDICARE PART A \\T\\ B [id number] 2020 00:00:00 [employer] MEDICARE ADVANTAGE PLAN [id number] 2021 00:00:00 [employer] (MEDICARE REPLACEMENT HMO) [id number] 2020 00:00:00 COMMERCIAL NON-CONTRACT GENERIC [id number] 2020 00:00:00 Problems Condition Name Condition Details Condition Category Status Onset Date Resolution Date Last Treatment Date Treating Clinician Comments Source COVID-19 COVID-19 Disease Active 05-10 00:00: 00 [facility] Elevated troponin Elevated troponin Disease Active 05-10 00:00: 00 [facility] Chest pain in adult Chest pain in adult Disease Active 05-10 00:00: 00 [facility] NSTEMI (non-ST elevated myocardial infarction ) NSTEMI (non-ST elevated myocardial infarction ) Disease Active 05-10 00:00: 00 [facility] Elevated brain natriureti c peptide (BNP) level Elevated brain natriureti c peptide (BNP) level Disease Active 05-10 00:00: 00 [facility] Elevated troponin Elevated troponin Disease Active 05-10 00:00: 00 [facility] PAD (periphera l artery disease) PAD (periphera l artery disease) Disease Active 03-14 00:00: 00 [facility] Myocardiop athy Myocardiop athy Disease Active 03-14 00:00: 00 [facility] Fall, initial encounter Fall, initial encounter Disease Active 2025-0 7-01 00:00: 00 [facility] Pleural effusion Pleural effusion Disease Active 0 7-01 00:00: 00 [facility] Hyperkalem ia Hyperkalem ia Disease Active 2023-09 2-29 00:00: 00 [facility] ESRD (end stage renal disease) ESRD (end stage renal disease) Disease Active 0 6-06 00:00: 00 [facility] CKD (chronic kidney disease) stage 5, GFR less than 15 ml/min CKD (chronic kidney disease) stage 5, GFR less than 15 ml/min Disease Active 0 5-13 00:00: 00 [facility] Encounter for fitting and adjustment of dialysis catheter Encounter for fitting and adjustment of dialysis catheter Disease Active 5-13 00:00: 00 [facility] Localized edema due to fluid overload Localized edema due to fluid overload Disease Active 5-09 00:00: 00 [facility] Insomnia due to medical condition Insomnia due to medical condition Disease Active 5-05 00:00: 00 [facility] Shortness of breath Shortness of breath Disease Active 4-18 00:00: 00 [facility] Preoperati ve cardiovasc ular examinatio n Preoperati ve cardiovasc ular examinatio n Disease Active 0 4-18 00:00: 00 [facility] End stage renal disease End stage renal disease Disease Active 0 4-18 00:00: 00 [facility] Coronary artery calcificat ion seen on CT scan Coronary artery calcificat ion seen on CT scan Disease Active 2-01 00:00: 00 [facility] Coronary atheroscle rosis of [place] coronary artery Coronary atheroscle ro[place] coronary artery Disease Active 2-01 00:00: 00 [facility] Chronic metabolic acidosis Chronic metabolic acidosis Disease Active 0 1-18 00:00: 00 [facility] Anemia of chronic disease Anemia of chronic disease Disease Active 0 1-18 00:00: 00 [facility] Stage 5 chronic kidney disease Stage 5 chronic kidney disease Disease Recurre nce -18 00:00: 00 [facility] Chronic metabolic acidosis Chronic metabolic acidosis Disease Active 18 00:00: 00 [facility] Nephrogeno us proteinuri a Nephrogeno us proteinuri a Disease Active 18 00:00: 00 [facility] Allergic rhinitis due to pollen Allergic rhinitis due to pollen Disease Active 2022-09 00:00: 00 [facility] Erectile dysfunctio n due to diabetes mellitus Erectile dysfunctio n due to diabetes mellitus Disease Active 03-20 00:00: 00 [facility] Ex-cigaret te smoker Ex-cigaret te smoker Disease Active 03-20 00:00: 00 [facility] Excessive daytime sleepiness Excessive daytime sleepiness Disease Active 04-09 00:00: 00 [facility] Excessive daytime sleepiness Excessive daytime sleepiness Disease Active 04-09 00:00: 00 [facility] Chronic arterial ischemic stroke Chronic arterial ischemic stroke Disease Active 03-04 00:00: 00 [facility] Essential hypertensi on Essential hypertensi on Disease Active 03-04 00:00: 00 [facility] Neuropathy of both feet Neuropathy of both feet Disease Active 03-04 00:00: 00 [facility] Neuropathy of both feet Neuropathy of both feet Disease Active 03-04 00:00: 00 [facility] Legal blindness Legal blindness Disease Active 01-22 00:00: 00 [facility] 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, unspecifie d eye 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, unspecifie d eye Disease Active 01-22 00:00: 00 [facility] Legal blindness Legal blindness Disease Active 01-22 00:00: 00 [facility] Hypertensi on Hypertensi on Disease Active 01-22 00:00: 00 [facility] Erectile dysfunctio n Erectile dysfunctio n Disease Active 01-22 00:00: 00 [facility] Constipati on Constipati on Disease Active 01-22 00:00: 00 [facility] Mixed anxiety and depressive disorder Mixed anxiety and depressive disorder Disease Active 01-22 00:00: 00 [facility] Night sweats Night sweats Disease Active 01-22 00:00: 00 [facility] 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, unspecifie d eye 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 [id number] Type 2 diabetes mellitus with other diabetic kidney complicati on Problem [facility] [id number] Type 2 diabetes mellitus with diabetic chronic kidney disease Problem [facility] [id number] Chronic kidney disease, stage 3 unspecifie d Problem [facility] Depression Depression Problem Co [facility] [id number] Current use of insulin Problem [facility] Vitamin D deficiency Vitamin D deficiency Problem [facility] Mixed hyperlipid emia Mixed hyperlipid emia Problem [facility] Anxiety Anxiety Problem [facility] Hyperglyce thalia due to type 2 diabetes mellitus Uncontroll ed type 2 diabetes mellitus with hyperglyce thalia Problem [facility] Hypertensi ve urgency Hypertensi ve urgency Disease Resolve d 06 00:00: 00 2021-04-09 00:00:00 2021-04-09 18:42:41 [facility] Supraglott ic abscess Supraglott ic abscess Disease Resolve d 01-08 00:00: 00 2021-04-09 00:00:00 2021-04-09 18:42:48 [facility] Allergies, Adverse Reactions, Alerts Allergy Name Allergy Type Status Severity Reaction(s) Onset Date Inactive Date Treating Clinician Comments Source Amlodipi ne Propensi ty to adverse reaction s Active Diarrhea 2020-09 00:00: 00 severe [facility] AMLODIPI NE DRUG INGREDI Active Diarrhea 2020-09 00:00: 00 [facility] NO KNOWN ALLERGIE S Drug Class Active [facility] Family History Family Member Diagnosis Comments Start Date Stop Date Sourc e Natural [facility] Maternal aunt Diabetes Univer [facility] Maternal grandmother Diabetes [facility] Maternal grandmother Hypertension [facility] Maternal uncle Diabetes [facility]ive [facility] Maternal uncle [facility] Natural mother Diabetes [facility] Natural mother Hy[facility] Natural mother Stroke [facility] Social History Social Habit Start Date Stop Date Quantity Comments Source History of tobacco use Cigarette Smoker [facility] History SDOH Alcohol Frequency [facility] History SDOH Alcohol [facility] SDOH Alcohol Binge [facility] History of Occupation [facility] Sex Assigned At [facility] Alcoholic beverage intake 2025-06-13 00:00:00 2025-06-13 00:00:00 1.71 /d [facility] Cigarettes smoked current (pack per day) - Reported 2025-05-10 00:00:00 2025-05-10 00:00:00 [facility] Cigarette pack-years 2025-05-10 00:00:00 2025-05-10 00:00:00 [facility] Tobacco use and exposure 2025-05-10 00:00:00 2025-05-10 00:00:00 Smokeless tobacco [facility] Status Start Date Stop Date Source Ex-smoker 2025-05-10 00:00:00 2025-05-10 00:00:00 [facility] Occasional tobacco smoker 2025-03-11 00:00:00 [facility] Current Smoker 2022-11-22 00:00:00 [facility] Medications Ordered Medication Name Filled Medication Name Start Date Stop Date Current Medication? Ordering Clinician Indication Dosage Frequency Signature (SIG) Comments Components Source HYDROcodone -acetaminop hen (NORCO 5) 5-325 mg tablet 1 tablet 05-30 05:45: 00 05-30 06:27 :00 No 1{tbl} 1 tablet, Oral, ONCE, 1 dose, On Mon05/30/25 at 0045, [facility] [facility] methocarbam oL 750 mg tablet 05-30 00:00: 00 Yes [id number] 750mg Take 1 tablet by mouth 4 times daily as needed for Pain (scale 7-10) or Pain (scale 4-6). [facility] acetaminoph en-codeine 300-30 mg tablet 05-30 00:00: 00 06-07 04:59 :00 Yes [id number] 1{tbl} Take 1 tablet by mouth every 6 hours as needed for Pain (scale 7-10) for up to 7 days. [facility] amLODIPine 10 mg tablet 05-29 00:00: 00 Yes [id number] 10mg Take 1 tablet by mouth in the morning and 1 tablet in the evening. [facility] atorvastati n (LIPITOR) tablet 80 mg 05-15 02:00: 00 05-14 23:05 :09 No 80mg 80 mg, Oral, QHS, First dose (after last modificati on) on Mon05/14/25 at 2100, Until Discontinu ed, Routine [facility] metoprolol succinate XL (TOPROL XL) tablet 50 mg 05-15 01:00: 00 05-14 23:05 :09 No 50mg 50 mg, Oral, BID, First dose on Mon05/14/25 at 2000, Until Discontinu ed, Routine [facility] aspirin 81 mg chewable tablet aspirin 81 mg chewable tablet 05-15 00:00: 00 05-14 00:00 :00 Yes [id number] 81mg Take 1 tablet by mouth in the morning. Do not start before May 15, 2025. [facility] clopidogreL 75 mg tablet clopidogreL 75 mg tablet 05-15 00:00: 00 05-14 00:00 :00 Yes [id number] 75mg Take 1 tablet by mouth in the morning. Do not start before May 15, 2025. [facility] empaglifloz in 10 mg tablet empaglifloz in 10 mg tablet 05-15 00:00: 00 05-14 00:00 :00 Yes [id number] 10mg Take 1 tablet by mouth in the morning. Do not start before May 15, 2025. [facility] empaglifloz in (JARDIANCE) tablet 10 mg empaglifloz in (JARDIANCE) tablet 10 mg 05-14 14:30: 00 05-14 23:05 :09 Yes 10mg 10 mg, Oral, DAILY, First dose on Mon05/14/25 at 0930, Until Discontinu ed, Routine [facility] clopidogreL (PLAVIX) 75 mg tablet 75 mg clopidogreL (PLAVIX) 75 mg tablet 75 mg 05-14 14:00: 00 05-14 23:05 :09 Yes 75mg 75 mg, Oral, DAILY, First dose on Mon05/14/25 at 0900, Until Discontinu ed, Routine [facility] metroNIDAZO LE 500 mg tablet 05-14 12:01: 10 Yes 500mg Take 1 tablet by mouth in the morning and 1 tablet in the evening. Picked them up today, needs to start them. [facility] ergocalcife rol, vitamin d2, 1,250 mcg (50,000 unit) capsule 05-14 12:01: 10 Yes [id number] Take 1 capsule by mouth every 14 days. [facility] amLODIPine 5 mg tablet amLODIPine 5 mg tablet 05-14 00:00: 00 05-29 00:00 :00 No [id number] 5mg Take 1 tablet by mouth in the morning and 1 tablet in the evening. [facility] nirmatrelvi r-ritonavir 150 mg (10)- 100 mg (10) tablet nirmatrelvi r-ritonavir 150 mg (10)- 100 mg (10) tablet 05-14 00:00: 00 05-17 04:59 :00 No [id number] 2{tbl} Take 2 tablets by mouth every evening for 2 days. Discard Remainder. [facility] atorvastati n 80 mg tablet atorvastati n 80 mg tablet 05-14 00:00: 00 05-14 00:00 :00 Yes [id number] 80mg Take 1 tablet by mouth at bedtime. [facility] metoprolol succinate XL 50 mg 24 hr tablet metoprolol succinate XL 50 mg 24 hr tablet 05-14 00:00: 00 05-14 00:00 :00 Yes [id number] 50mg Take 1 tablet by mouth in the morning and 1 tablet in the evening. [facility] melatonin 3 mg tablet 05-14 00:00: 00 05-14 00:00 :00 No [id number] 6mg Take 2 tablets by mouth as needed for Insomnia. As needed at bedtime [facility] nirmatrelvi r-ritonavir (PAXLOVID) 150 mg (10)- 100 mg (10) tablets 2 tablet nirmatrelvi r-ritonavir (PAXLOVID) 150 mg (10)- 100 mg (10) tablets 2 tablet 05-13 22:00: 00 05-14 23:05 :09 Yes 2{tbl} Oral, DAILY AT 1700, 4 doses, First dose (after last modificati on) on Mon05/13/25 at 1700, Last dose on Mon05/16/25 at 1700, Routine [facility] clopidogreL (PLAVIX) 300 mg tablet 05-13 21:09: 29 05-13 21:18 :35 No ONCE INTRA PROCEDURE, Starting on Mon05/13/25 at 1609, Until Mon05/13/25 at 1618, Routine, CV Intraproce dure [facility] heparin 1,000 unit/mL injection 05-13 19:40: 00 05-13 21:18 :35 No ONCE INTRA PROCEDURE, Starting on Mon05/13/25 at 1440, Until Mon05/13/25 at 1618, Routine, CV Intraproce dure [facility] lidocaine 1% (XYLOCAINE) 10 mg/mL (1 %) injection 05-13 19:24: 01 05-13 21:18 :35 No ONCE INTRA PROCEDURE, Starting on Mon05/13/25 at 1424, Until Mon05/13/25 at 1618, Routine, CV Intraproce dure [facility] FENTanyl (PF) (SUBLIMAZE) injection 05-13 19:21: 22 05-13 21:18 :35 No ONCE INTRA PROCEDURE, Starting on Mon05/13/25 at 1421, Until Mon05/13/25 at 1618, Routine, CV Intraproce dure [facility] midazolam (VERSED) 1 mg/mL injection 05-13 19:21: 01 05-13 21:18 :35 No ONCE INTRA PROCEDURE, Starting on Mon05/13/25 at 1421, Until Mon05/13/25 at 1618, Routine, CV Intraproce dure [facility] sodium zirconium cyclosilica te (LOKELMA) 10 gram packet 10 g sodium zirconium cyclosilica te (LOKELMA) 10 gram packet 10 g 05-13 12:00: 00 05-14 21:05 :08 Yes 10g 10 g, Oral, TID, 6 doses, First dose on Mon05/13/25 at 0700, Last dose on Mon05/14/25 at 2200, BROOKE [facility] atorvastati n (LIPITOR) tablet 40 mg atorvastati n (LIPITOR) tablet 40 mg 05-13 02:00: 00 05-14 14:20 :22 Yes 40mg 40 mg, Oral, QHS, First dose (after last modificati on) on Mon05/12/25 at 2100, Until Discontinu ed, Routine [facility] nirmatrelvi r-ritonavir (PAXLOVID) 300 mg (150 mg x 2)-100 mg tablets 3 tablet nirmatrelvi r-ritonavir (PAXLOVID) 300 mg (150 mg x 2)-100 mg tablets 3 tablet 05-12 17:30: 00 05-12 18:03 :00 Yes 3{tbl} Oral, Once, 1 dose, On Mon05/12/25 at 1230, Routine [facility] polyethylen e glycol 3350 powder 17 g polyethylen e glycol 3350 powder 17 g 05-12 15:00: 00 05-14 21:05 :08 Yes 17g 17 g, Oral, DAILY, First dose on Mon05/12/25 at 1000, Until Discontinu ed, Routine [facility] latanoprost (XALATAN) 0.005 % ophthalmic drops 1 drop latanoprost (XALATAN) 0.005 % ophthalmic drops 1 drop 05-11 22:00: 00 05-14 21:05 :08 Yes 1[drp] 1 drop, Both Eyes, QPM, First dose on Mon05/11/25 at 1700, Until Discontinu ed, Routine [facility] aspirin chewable tablet 81 mg aspirin chewable tablet 81 mg 05-11 21:15: 00 05-14 23:05 :09 Yes 81mg 81 mg, Oral, DAILY, First dose on Mon05/11/25 at 1615, Until Discontinu ed, Routine [facility] ALPRAZolam (XANAX) tablet 0.5 mg ALPRAZolam (XANAX) tablet 0.5 mg 05-11 20:37: 35 05-14 21:05 :08 Yes .5mg 0.5 mg, Oral, QHSPRN, Starting on Mon05/11/25 at 1537, Until Mon05/14/25 at 1605, Routine, Anxiety [facility] perflutren protein-A microsphr (OPTISON) injection 3 mL 05-11 15:15: 00 05-11 15:15 :00 No [id number] 4101 3mL 3 mL, IV Push, ONCE, 1 dose, On Mon05/11/25 at 1015, Routine [facility] pregabalin (LYRICA) capsule 25 mg pregabalin (LYRICA) capsule 25 mg 05-11 14:00: 00 05-14 21:05 :08 Yes 25mg 25 mg, Oral, DAILY, First dose on Mon05/11/25 at 0900, Until Discontinu ed, Routine [facility] calcium acetate(stephen sphat bind) (PHOSLO) capsule 667 mg calcium acetate(stephen sphat bind) (PHOSLO) capsule 667 mg 05-11 13:00: 00 05-14 21:05 :08 Yes 667mg 667 mg, Oral, TID MEALS, First dose on Mon05/11/25 at 0800, Until Discontinu ed, Routine [facility] ALPRAZolam (XANAX) tablet 0.5 mg ALPRAZolam (XANAX) tablet 0.5 mg 05-11 07:15: 00 05-11 06:36 :00 Yes .5mg 0.5 mg, Oral, ONCE, 1 dose, On 05/11/25 at 0215, Routine [facility] pramipexole (MIRAPEX) tablet 0.125 mg pramipexole (MIRAPEX) tablet 0.125 mg 05-11 02:00: 00 05-14 21:05 :08 Yes .125mg 0.125 mg, Oral, QHS, First dose on 05/10/25 at 2100, Until Discontinu ed, Routine [facility] gabapentin (NEURONTIN) capsule 100 mg gabapentin (NEURONTIN) capsule 100 mg 05-11 02:00: 00 05-12 03:33 :18 Yes 100mg 100 mg, Oral, QHS, First dose on 05/10/25 at 2100, Until Discontinu ed, Routine [facility] atorvastati n (LIPITOR) tablet 20 mg atorvastati n (LIPITOR) tablet 20 mg 05-11 02:00: 00 05-12 03:23 :04 Yes 20mg 20 mg, Oral, QHS, First dose on Mon05/10/25 at 2100, Until Discontinu ed, Routine [facility] melatonin (MELATIN) tablet 6 mg melatonin (MELATIN) tablet 6 mg 05-10 22:07: 06 05-14 21:05 :08 Yes 6mg 6 mg, Oral, PRN, Starting on Mon05/10/25 at 1707, Until Mon05/14/25 at 1605, Routine, Insomnia [facility] Sliding Scale Insulin - Lispro (HumaLOG) [id number] 9710-0 8-30 17:00: 00 05-14 21:05 :08 Yes Subcutaneo us, TID MEALS+HS, First dose on 05/10/25 at 1200, Until Discontinu ed, Routine [facility] dexamethaso ne (DECADRON PHOSPHATE) 4 mg/mL injection 6 mg dexamethaso ne (DECADRON PHOSPHATE) 4 mg/mL injection 6 mg 05-10 17:00: 00 05-10 22:11 :41 Yes 6mg 6 mg, Slow IV Push, DAILY, 10 doses, First dose on Mon05/10/25 at 1200, Last dose on Mon05/19/25 at 0900, Routine [facility] glucagon HCL injection 1 mg 05-10 16:38: 07 05-14 21:05 :08 No 1mg 1 mg, Intramuscu lar, PRN, Starting on Mon05/10/25 at 1138, Until Mon05/14/25 at 1605, BROOKE, Low blood sugar, Blood Glucose < or = 70 mg/dL and patient is NPO, unable to swallow or has mental changes. [facility] dextrose 50 % in water (D50W) injection 25 mL 05-10 16:38: 07 05-14 21:05 :08 No 25mL 25 mL, Slow IV Push, PRN, Starting on Mon05/10/25 at 1138, Until Mon05/14/25 at 1605, BROOKE, Blood Glucose < or = 70 mg/dL and patient is NPO, unable to swallow or has mental status changes. [facility] mupirocin (BACTROBAN OINT) 2 % oinintment 05-10 15:08: 51 05-14 21:05 :08 No [facility] heparin 1,000 unit/mL (10 mL) - HD Bolus [id number] 8-30 15:08: 24 05-14 21:05 :08 Yes 2000U PRN - SEE INSTRUCTIO NS, Starting on Mon05/10/25 at 1008, Until Mon05/14/25 at 1605, Routine [facility] heparin (porcine) injection 5,000 unit [id number] 8-30 13:00: 00 05-14 21:05 :08 Yes 5000U 5,000 unit, Subcutaneo , Q12H, First dose on 05/10/25 at 0800, Until Discontinu ed, Routine [facility] metoprolol tartrate (LOPRESSOR) tablet 50 mg metoprolol tartrate (LOPRESSOR) tablet 50 mg 05-10 11:00: 00 05-14 14:18 :33 Yes 50mg 50 mg, Oral, BID AT 0600 - 1800, First dose on 05/10/25 at 0600, Until Discontinu ed, Routine [facility] metoprolol (LOPRESSOR) injection 5 mg metoprolol (LOPRESSOR) injection 5 mg 05-10 09:28: 00 05-10 10:13 :00 Yes 5mg 5 mg, Slow IV Push, ONCE NOW, 1 dose, On 05/10/25 at 0430, Routine [facility] codeine-gua ifenesin (ROBITUSSIN AC) 10-100 mg/5 mL oral solution 10 mL codeine-gua ifenesin (ROBITUSSIN AC) 10-100 mg/5 mL oral solution 10 mL 05-10 09:13: 20 05-14 21:05 :08 Yes 10mL 10 mL, Oral, Q6HPRN, Starting on Mon05/10/25 at 0413, Until Mon05/14/25 at 1605, Routine, Cough [facility] albuterol (VENTOLIN) inhaler 2 puff albuterol (VENTOLIN) inhaler 2 puff 05-10 09:13: 17 05-14 21:05 :08 Yes 2{puff} 2 puff, Inhalation , Q6HPRN, Starting on 05/10/25 at 0413, Until Mon05/14/25 at 1605, Routine, Wheezing, Shortness of Breath, Bronchospa sm, Chest tightness [facility] ondansetron (ZOFRAN (PF)) injection 4 mg ondansetron (ZOFRAN (PF)) injection 4 mg 05-10 09:12: 48 05-14 21:05 :08 Yes 4mg 4 mg, Slow IV Push, Q6HPRN, Starting on 05/10/25 at 0412, Until Mon05/14/25 at 1605, Administer over 2-5 Minutes, 2 mL [facility] acetaminoph en-codeine (TYLENOL #3) 300-30 mg tablet 1 tablet 05-10 09:12: 04 05-14 21:05 :08 No 1{tbl} 1 tablet, Oral, Q6HPRN, Starting on Mon05/10/25 at 0412, Until Mon05/14/25 at 1605, Routine, Pain (scale 4-6) [facility] acetaminoph en (TYLENOL) tablet 650 mg 05-10 09:11: 00 05-14 21:05 :08 No 650mg 650 mg, Oral, Q6HPRN, Starting on 05/10/25 at 0411, Until Mon05/14/25 at 1605, Routine, Pain (scale 1-3) [facility] aspirin tablet 325 mg 05-10 08:00: 00 05-10 08:00 :00 No 325mg 325 mg, Oral, ONCE, 1 dose, On Mon05/10/25 at 0300, STAT [facility] ipratropium (ATROVENT) 0.02 % nebulizer solution 0.5 mg 05-10 07:45: 00 05-10 07:09 :00 No .5mg 0.5 mg, Inhalation , ONCE, 1 dose, On Mon05/10/25 at 0245, [facility] albuterol (PROVENTIL) 2.5 mg /3 mL (0.083 %) nebulizer solution 5 mg 05-10 07:45: 00 05-10 07:09 :00 No 5mg 5 mg, Inhalation , ONCE, 1 dose, On 05/10/25 at 0245, [facility] acetaminoph en (TYLENOL) tablet 1,000 mg 05-10 07:15: 00 05-10 07:30 :00 No 1000mg 1,000 mg, Oral, ONCE, 1 dose, On 05/10/25 at 0215, BROOKE [facility] dexamethaso ne sod phos PF injection 10 mg 05-10 07:15: 00 05-10 07:30 :00 No 10mg 10 mg, Slow IV Push, ONCE, 1 dose, On 05/10/25 at 0215, 1 mL [facility] amLODIPine 5 mg tablet 03-15 00:00: 00 04-15 04:59 :00 No [id number] 5mg Take 1 tablet by mouth in the morning for 30 days. [facility] pregabalin 25 mg capsule 03-14 14:31: 48 Yes 25mg Take 1 capsule by mouth in the morning. [facility] amLODIPine 10 mg tablet 03-14 13:04: 48 05-14 00:00 :00 No 10mg Take 1 tablet by mouth in the morning and 1 tablet in the evening. [facility] hydrOXYzine (ATARAX) tablet 25 mg hydrOXYzine (ATARAX) tablet 25 mg 03-14 02:27: 12 Yes 25mg 25 mg, Oral, Q6HPRN, Starting on Kaylie 03/13/25 at 2127, Until Discontinu ed, Routine, Itching [facility] insulin lispro, human, 100 unit/mL injection 03-14 00:00: 00 05-14 00:00 :00 No [id number] 105 2U inject 2 Units under the skin in the morning and 2 Units at noon and 2 Units in the evening. inject before meals. [facility] melatonin 3 mg tablet 03-14 00:00: 00 05-14 00:00 :00 No [id number] 6mg Take 2 tablets by mouth at bedtime. [facility] carvediloL 12.5 mg tablet 03-14 00:00: 00 04-14 04:59 :00 No [id number] 12.5mg Take 1 tablet by mouth in the morning and 1 tablet in the evening. Take with meals. Do all this for 30 days. [facility] hydrOXYzine 25 mg tablet 03-14 00:00: 00 03-20 04:59 :00 No [id number] 25mg Take 1 tablet by mouth every 6 hours as needed for Itching for up to 5 days. [facility] LORazepam (ATIVAN) tablet 0.5 mg LORazepam (ATIVAN) tablet 0.5 mg 03-13 14:44: 26 03-14 19:31 :48 No .5mg 0.5 mg, Oral, TIDPRN, Starting on Mon03/13/25 at 0944, Until Mon03/14/25 at 1431, Routine, Agitation, Anxiety [facility] Sliding Scale Insulin - Lispro (HumaLOG) [id number] 2347-0 7-03 02:00: 00 03-14 19:31 :48 No Subcutaneo us, TID MEALS+HS, First dose on Mon03/12/25 at 2100, Until Discontinu ed, Routine [facility] glucagon HCL injection 1 mg 03-13 00:44: 05 03-14 19:31 :48 No 1mg 1 mg, Intramuscu lar, PRN, Starting on Mon03/12/25 at 1944, Until Mon03/14/25 at 1431, BROOKE, Low blood sugar, Blood Glucose < or = 70 mg/dL and patient is NPO, unable to swallow or has mental changes. [facility] dextrose 50 % in water (D50W) injection 25 mL 03-13 00:44: 05 03-14 19:31 :48 No 25mL 25 mL, Slow IV Push, PRN, Starting on Mon03/12/25 at 1944, Until Mon03/14/25 at 1431, BROOKE, Blood Glucose < or = 70 mg/dL and patient is NPO, unable to swallow or has mental status changes. [facility] calcium acetate(stephen sphat bind) (PHOSLO) capsule 1,334 mg calcium acetate(stephen sphat bind) (PHOSLO) capsule 1,334 mg 03-12 17:00: 00 03-14 19:31 :48 No 1334mg 1,334 mg, Oral, TID MEALS, First dose (after last modificati on) on Mon03/12/25 at 1200, Until Discontinu ed, Routine [facility] calcium acetate(stephen sphat bind) (PHOSLO) capsule 667 mg calcium acetate(stephen sphat bind) (PHOSLO) capsule 667 mg 03-12 13:00: 00 03-12 16:50 :32 No 667mg 667 mg, Oral, TID MEALS, First dose on Mon03/12/25 at 0800, Until Discontinu ed, Routine [facility] melatonin (MELATIN) tablet 6 mg melatonin (MELATIN) tablet 6 mg 03-12 02:00: 00 Yes 6mg 6 mg, Oral, QHS, First dose on Mon03/11/25 at 2100, Until Discontinu ed, Routine [facility] gabapentin (NEURONTIN) capsule 100 mg gabapentin (NEURONTIN) capsule 100 mg 03-12 02:00: 00 03-14 19:31 :48 No 100mg 100 mg, Oral, QHS, First dose on Mon03/11/25 at 2100, Until Discontinu ed, Routine [facility] pramipexole (MIRAPEX) tablet 0.125 mg pramipexole (MIRAPEX) tablet 0.125 mg 03-12 02:00: 00 03-14 19:31 :48 No .125mg 0.125 mg, Oral, QHS, First dose on Mon03/11/25 at 2100, Until Discontinu ed, Routine [facility] latanoprost (XALATAN) 0.005 % ophthalmic drops 1 Drop latanoprost (XALATAN) 0.005 % ophthalmic drops 1 Drop 03-12 02:00: 00 03-14 19:31 :48 No 1[drp] 1 Drop, Both Eyes, QHS, First dose on Mon03/11/25 at 2100, Until Discontinu ed, Routine [facility] atorvastati n (LIPITOR) tablet 20 mg atorvastati n (LIPITOR) tablet 20 mg 03-12 02:00: 00 03-14 19:31 :48 No 20mg 20 mg, Oral, QHS, First dose on Mon03/11/25 at 2100, Until Discontinu ed, Routine [facility] traZODone (DESYREL) tablet 50 mg traZODone (DESYREL) tablet 50 mg 03-12 01:27: 39 03-14 19:31 :48 No 50mg 50 mg, Oral, QHSPRN, Starting on Mon03/11/25 at 2027, Until Mon03/14/25 at 1431, Routine, Insomnia [facility] sodium bicarbonate (ANTACID (SODIUM BICARBONATE )) tablet 650 mg sodium bicarbonate (ANTACID (SODIUM BICARBONATE )) tablet 650 mg 03-12 01:00: 00 03-12 16:28 :55 No 650mg 650 mg, Oral, TID, First dose on Mon03/11/25 at 2000, Until Discontinu ed, Routine [facility] amLODIPine (NORVASC) tablet 5 mg amLODIPine (NORVASC) tablet 5 mg 03-11 23:30: 00 Yes 5mg 5 mg, Oral, DAILY, First dose on Mon03/11/25 at 1830, Until Discontinu ed, Routine [facility] carvediloL (COREG) tablet 12.5 mg carvediloL (COREG) tablet 12.5 mg 03-11 23:30: 00 Yes 12.5mg 12.5 mg, Oral, BID MEALS, First dose on Mon03/11/25 at 1830, Until Discontinu ed, Routine [facility] amitriptyli ne (ELAVIL) tablet 25 mg amitriptyli ne (ELAVIL) tablet 25 mg 03-11 23:30: 00 03-14 19:31 :48 No 25mg 25 mg, Oral, DAILY, First dose on Mon03/11/25 at 1830, Until Discontinu ed, Routine [facility] HYDROcodone -acetaminop hen (NORCO 5) tablet 1 tablet HYDROcodone -acetaminop hen (NORCO 5) tablet 1 tablet 03-11 20:18: 43 03-14 19:31 :48 No 1{tbl} 1 tablet, Oral, Q6HPRN, Starting on Mon03/11/25 at 1518, Until Mon03/14/25 at 1431, Routine, Pain (scale 4-6) [facility] acetaminoph en (TYLENOL) tablet 650 mg 03-11 20:18: 37 03-14 19:31 :48 No 650mg 650 mg, Oral, Q6HPRN, Starting on Mon03/11/25 at 1518, Until Mon03/14/25 at 1431, Routine, Pain (scale 1-3), Temp > 38 C [facility] heparin (porcine) injection 5,000 Units [id number] 7-01 19:00: 00 03-14 19:31 :48 No 5000U 5,000 Units, Subcutaneo us, Q8H, First dose on Mon03/11/25 at 1400, Until Discontinu ed, Routine [facility] insulin lispro (human) (HumaLOG U-100) injection 2 Units 03-11 18:51: 25 Yes 2U 2 Units, Subcutaneo us, PRN - SEE INSTRUCTIO NS, 1 dose, Starting on Mon03/11/25 at 1351, Until Discontinu ed, Routine, For blood glucose > 300 mg/dL [facility] dextrose 10% (D10W) bolus infusion 125 mL 03-11 18:51: 25 03-14 19:31 :48 No 125mL 125 mL, Intravenou s, PRN - SEE INSTRUCTIO NS, Administer over 60 Minutes, Other, Administer once if after insulin administra tion, blood glucose is 71-140 mg/dL and patient is unable to eat a 15 g carb snack, Starting on Mon03/11/25 at 1351, For 1 dose, If patient is able to eat/swallo w, give 15 gram carb snack - Sprite or cranberry juice. [facility] insulin regular human (HUMULIN R) injection 8 Units 03-11 17:00: 00 03-11 17:19 :00 No .1U/kg 8 Units (rounded from 8.07 Units = 0.1 Units/kg ?80.7 kg), IV Push, ONCE, 1 dose, On Mon03/11/25 at 1200, BROOKE, Indication for insulin: Hyperkalem ia- Please use the Insulin Protocol for Hyperkalem ia order set [facility] dextrose 50 % in water (D50W) injection 50 mL 03-11 17:00: 00 03-11 17:19 :00 No 50mL 50 mL, Slow IV Push, ONCE, 1 dose, On Mon03/11/25 at 1200, BROOKE [facility] FENTanyl (PF) (SUBLIMAZE) injection 50 mcg 03-11 16:30: 00 03-11 16:28 :00 No 50ug 50 mcg, Slow IV Push, ONCE, 1 dose, On Mon03/11/25 at 1130, Routine [facility] morphine (2 mg/mL) injection 2 mg 03-11 14:45: 00 03-11 14:45 :00 No 2mg 2 mg, Slow IV Push, ONCE, 1 dose, On Mon03/11/25 at 0945, STAT [facility] gabapentin 100 mg capsule 02-11 00:00: 00 Yes 100mg Take 1 capsule by mouth at bedtime. [facility] amitriptyli ne 25 mg tablet 01-23 00:00: 00 01-24 04:59 :00 No 25mg Take 1 tablet by mouth in the morning. [facility] desloratadi ne 5 mg tablet 01-23 00:00: 00 01-24 04:59 :00 No 5mg Take 1 tablet by mouth in the morning. [facility] fluticasone propionate 50 mcg/actuati on nasal spray 01-23 00:00: 00 01-24 04:59 :00 No 1{spray } Use 1 spray in each nostril as needed for Other (congestio n). Once a day as needed [facility] olmesartan 20 mg tablet 5-13 00:00: 00 03-14 00:00 :00 No 20mg Take 1 tablet by mouth at bedtime. [facility] pramipexole 0.125 mg tablet 3-11 00:00: 00 Yes .125mg Take 1 tablet by mouth at bedtime. [facility] atorvastati n (LIPITOR) tablet 20 mg 2023-09 03:00: 00 09-09 01:28 :19 No 20mg [facility] mupirocin (BACTROBAN OINT) 2 % oinintment 2023-09 01:04: 23 Yes [facility] carvediloL (COREG) tablet 6.25 mg 2023-09 23:00: 00 09-09 01:28 :19 No 6.25mg 6.25 mg, Oral, BID MEALS, First dose (after last modificati on) on 09/08/24 at 1700, Until Discontinu ed, Routine [facility] latanoprost (XALATAN) 0.005 % ophthalmic drops 1 Drop 2023-09 23:00: 00 09-09 01:28 :19 No 1[drp] 1 Drop, Both Eyes, QPM, First dose on 09/08/24 at 1700, Until Discontinu ed, Routine [facility] sennosides (SENOKOT) tablet 8.6 mg 2023-09 15:00: 00 09-09 01:28 :19 No 8.6mg 8.6 mg, Oral, DAILY, First dose on 09/08/24 at 0900, Until Discontinu ed, Routine [facility] polyethylen e glycol 3350 powder 17 g 2023-09 15:00: 00 09-09 01:28 :19 No 17g 17 g, Oral, DAILY, First dose on 09/08/24 at 0900, Until Discontinu ed, Routine [facility] amLODIPine (NORVASC) tablet 10 mg 2023-09 15:00: 00 09-09 01:28 :19 No 10mg [facility] Sliding Scale Insulin - Lispro (HumaLOG) 2023-09 14:00: 00 09-09 01:28 :19 No Subcutaneo us, TID MEALS+HS, First dose on 09/08/24 at 0800, Until Discontinu ed, Routine [facility] heparin (porcine) injection 5,000 Units 2023-09 14:00: 00 09-09 01:28 :19 No 5000U 5,000 Units, Subcutaneo us, Q12H, First dose on 09/08/24 at 0800, Until Discontinu ed, Routine [facility] calcium acetate(stephen sphat bind) (PHOSLO) capsule 667 mg 2023-09 14:00: 00 09-09 01:28 :19 No 667mg 667 mg, Oral, TID MEALS, First dose on 09/08/24 at 0800, Until Discontinu ed, Routine [facility] sodium bicarbonate (ANTACID (SODIUM BICARBONATE )) tablet 650 mg 2023-09 14:00: 00 09-09 01:28 :19 No 650mg 650 mg, Oral, TID, First dose on 09/08/24 at 0800, Until Discontinu ed, Routine [facility] sodium zirconium cyclosilica te (LOKELMA) 10 gram packet 10 g 2023-09 13:00: 00 09-09 01:28 :19 No 10g 10 g, Oral, TID, First dose on 09/08/24 at 0700, Until Discontinu ed, Routine [facility] carvediloL (COREG) tablet 6.25 mg 2023-09 07:00: 00 09-08 10:07 :26 No 6.25mg 6.25 mg, Oral, BID MEALS, First dose on 09/08/24 at 0100, Until Discontinu ed, Routine [facility] hydralAZINE (APRESOLINE ) injection 10 mg 2023-09 06:56: 11 09-09 01:28 :19 No 10mg 10 mg, Slow IV Push, Q6HPRN, Starting on 09/08/24 at 0056, Until 09/08/24 at 1928, Routine, DBP=>100; SBP=>180 [facility] acetaminoph en (TYLENOL) tablet 650 mg 2023-09 06:49: 31 09-09 01:28 :19 No 650mg [facility] traZODone (DESYREL) tablet 50 mg 2023-09 06:48: 04 09-09 01:28 :19 No 50mg 50 mg, Oral, PRN, Starting on 09/08/24 at 0048, Until 09/08/24 at 1928, Routine, Insomnia [facility] metoprolol tartrate (LOPRESSOR) tablet 25 mg 2023-09 04:15: 00 09-08 04:21 :00 No 25mg 25 mg, Oral, ONCE, 1 dose, On 09/07/24 at 2215, Routine [facility] insulin regular human (HUMULIN R) injection 3 Units 2023-09 04:15: 00 09-08 03:28 :00 No 3U 3 Units, IV Push, ONCE, 1 dose, On 09/07/24 at 2215, Routine, Indication for insulin: Hyperglyce thalia [facility] dextrose 10% (D10W) bolus infusion 125 mL [...] carb snack - Sprite or cranberry juice. [facility] dextrose 50 % in water (D50W) injection 50 mL 2023-09 02:30: 00 09-08 02:42 :00 No 50mL 50 mL, Slow IV Push, ONCE, 1 dose, On 09/07/24 at 2030, BROOKE [facility] sodium zirconium cyclosilica te (LOKELMA) 10 gram packet 10 g 2023-09 02:30: 00 09-08 02:41 :00 No 10g 10 g, Oral, DAILY, 1 dose, First dose on 09/07/24 at 2030, BROOKE [facility] calcium gluconate 1 g in NaCl 50 mL (ISO-OSM) RTU IV infusion 1 g 2023-09 02:08: 48 09-09 01:28 :19 No 1g 1 g, IV Infusion, at 100 mL/hr Administer over 30 Minutes, PRN - SEE INSTRUCTIO NS, Starting on 09/07/24 at 2007, Until 09/08/24 at 1928, STAT, Potassium greater than or equal to 6.0 mEq/L with our without EKG changes [facility] glucagon HCL injection 1 mg 2023-09 02:07: 21 09-09 01:28 :19 No 1mg 1 mg, Intramuscu lar, PRN, Starting on 09/07/24 at 2006, Until 09/08/24 at 1928, BROOKE, Low blood sugar, Blood Glucose < or = 70 mg/dL and patient is NPO, unable to swallow or has mental changes. [facility] dextrose 50 % in water (D50W) injection 25 mL 2023-09 02:07: 21 09-09 01:28 :19 No 25mL 25 mL, Slow IV Push, PRN, Starting on 09/07/24 at 2006, Until 09/08/24 at 1928, BROOKE, Blood Glucose < or = 70 mg/dL and patient is NPO, unable to swallow or has mental status changes. [facility] sodium chloride (NS) injection 5 mL 2023-09 00:50: 24 09-09 01:28 :19 No 5mL 5 mL, Intravenou s, PRN, Starting on 09/07/24 at 1850, Until 09/08/24 at 1928, Routine, IV line flushing [facility] HYDROcodone -acetaminop hen (NORCO 5) 5-325 mg tablet 1 tablet 04-03 08:45: 00 04-03 08:44 :00 No 1{tbl} 1 tablet, Oral, ONCE, 1 dose, On Mon04/03/24 at 0345, [place] [facility] heparin (1,000 unit/mL, 10 mL vial) 02-28 13:20: 00 02-28 14:12 :12 No ONCE INTRA PROCEDURE, Starting on Kaylie 02/29/24 at 0820, Until Kaylie 02/29/24 at 0912, Routine, Intra-op [facility] heparin 5,000 unit/mL injection 02-28 13:00: 00 02-28 14:22 :28 No PRN, Starting on Kaylie 02/29/24 at 0800, Until Kaylie 02/29/24 at 0922, Routine, Intra-op [facility] bupivacaine (preserv free) (SENSORCAIN E MPF) 0.25 % (2.5 mg/mL) injection 02-28 12:59: 00 02-28 14:22 :28 No PRN, Starting on Kaylie 02/29/24 at 0759, Until Kaylie 02/29/24 at 0922, Routine, Intra-op [facility] NaCl 0.9% (NS) IV infusion 02-28 12:59: 00 02-28 14:22 :28 No CONTINUOUS PRN, Starting on Kaylie 02/29/24 at 0759, Until Kaylie 02/29/24 at 0922, Routine, Intra-op [facility] ceFAZolin (ANCEF) injection 02-28 12:51: 00 02-28 14:12 :12 No Slow IV Push, ONCE INTRA PROCEDURE, Starting on Kaylie 6/20/24 at 0751, Until Kaylie 24 at 0912, BROOKE, Intra-op [facility] lactated ringers IV infusion 02-28 12:39: 00 02-28 14:12 :12 No IV Infusion, CONTINUOUS PRN, Starting on Kaylie 02/29/24 at 0739, Until Kaylie 24 at 0912, Routine, Intra-op [facility] midazolam (VERSED) injection 02-28 12:26: 00 02-28 14:12 :12 No IV Push, ONCE INTRA PROCEDURE, Starting on Kaylie 02/29/24 at 0726, Until Kaylie 24 at 0912, Routine, Intra-op [facility] NaCl 0.9% (NS) IV infusion 1,000 mL 02-28 11:45: 00 02-28 17:50 :30 No 1000mL at 42 mL/hr, IV Infusion, CONTINUOUS , Starting on Kaylie 02/29/24 at 0645, Until Kaylie 02/29/24 at 1250, Routine, DSU Pre-op [facility] calcium acetate,stephen sphat bind, 667 mg capsule 02-28 10:50: 29 Yes 667mg Take 1 capsule by mouth in the morning and 1 capsule at noon and 1 capsule in the evening. Take with meals. [facility] sodium bicarbonate 650 mg tablet 02-28 10:50: 29 Yes TAKE 1 TABLET BY MOUTH IN THE MORNING AND 1 AT NOON AND 1 IN THE EVENING WITH MEALS [facility] atorvastati n 20 mg tablet 02-28 10:50: 29 05-14 00:00 :00 No 20mg Take 1 tablet by mouth at bedtime. [facility] atenoloL 25 mg tablet 02-28 10:50: 29 05-14 00:00 :00 No 25mg Take 1 tablet by mouth in the morning. [facility] bimatoprost (LUMIGAN) 0.01 % ophthalmic drops 02-28 10:50: 29 03-11 00:00 :00 No 1[drp] Place 1 Drop in each eye in the morning. [facility] atorvastati n 20 mg tablet 02-14 14:28: 43 Yes 20mg Take 1 tablet by mouth at bedtime. [facility] bimatoprost (LUMIGAN) 0.01 % ophthalmic drops 02-14 14:28: 43 Yes 1[drp] Place 1 Drop in each eye in the morning. [facility] atenoloL 25 mg tablet 02-14 14:28: 43 Yes 25mg Take 1 tablet by mouth at bedtime. [facility] calcium acetate,stephen sphat bind, 667 mg capsule 02-14 14:28: 43 Yes 667mg Take 1 capsule by mouth in the morning and 1 capsule at noon and 1 capsule in the evening. Take with meals. [facility] sodium bicarbonate 650 mg tablet 02-14 14:28: 43 Yes TAKE 1 TABLET BY MOUTH IN THE MORNING AND 1 AT NOON AND 1 IN THE EVENING WITH MEALS [facility] atorvastati n 20 mg tablet 02-14 13:53: 20 Yes 20mg Take 1 tablet by mouth at bedtime. [facility] bimatoprost (LUMIGAN) 0.01 % ophthalmic drops 02-14 13:53: 20 Yes 1[drp] Place 1 Drop in each eye in the morning. [facility] atenoloL 25 mg tablet 02-14 13:53: 20 Yes 25mg Take 1 tablet by mouth at bedtime. [facility] calcium acetate,stephen sphat bind, 667 mg capsule 02-14 13:53: 20 Yes 667mg Take 1 capsule by mouth in the morning and 1 capsule at noon and 1 capsule in the evening. Take with meals. [facility] sodium bicarbonate 650 mg tablet 02-14 13:53: 20 Yes TAKE 1 TABLET BY MOUTH IN THE MORNING AND 1 AT NOON AND 1 IN THE EVENING WITH MEALS [facility] sodium bicarbonate 650 mg tablet 02-14 08:35: 34 Yes TAKE 1 TABLET BY MOUTH IN THE MORNING AND 1 AT NOON AND 1 IN THE EVENING WITH MEALS [facility] atorvastati n 20 mg tablet 02-14 08:34: 36 Yes 20mg Take 1 tablet by mouth at bedtime. [facility] bimatoprost (LUMIGAN) 0.01 % ophthalmic drops 02-14 08:34: 36 Yes 1[drp] Place 1 Drop in each eye in the morning. [facility] atenoloL 25 mg tablet 02-14 08:34: 36 Yes 25mg Take 1 tablet by mouth at bedtime. [facility] calcium acetate,stephen sphat bind, 667 mg capsule 02-14 08:34: 36 Yes 667mg Take 1 capsule by mouth in the morning and 1 capsule at noon and 1 capsule in the evening. Take with meals. [facility] HYDROcodone -acetaminop hen 5-325 mg tablet 02-08 00:00: 00 09-08 00:00 :00 No 1{tbl} Take 1 tablet by mouth. [facility] HYDROcodone -acetaminop hen (NORCO) 10-325 mg tablet 1 tablet 02-01 15:45: 57 02-01 20:49 :19 No 1{tbl} [facility] HYDROcodone -acetaminop hen (NORCO 5) 5-325 mg tablet 1 tablet 02-01 15:45: 57 02-01 16:24 :00 No 1{tbl} 1 tablet, Oral, PRN, 1 dose, Starting on Mon02/02/24 at 1045, Until Mon02/02/24 at 1124, Routine, Pain (scale 4-6), DSU Recovery [facility] acetaminoph en (TYLENOL) tablet 650 mg 02-01 15:45: 57 02-01 20:49 :19 No 650mg [facility] bupivacaine (preserv free) (SENSORCAIN E MPF) 0.25 % (2.5 mg/mL) 30 mL, lidocaine-e pinephrine (XYLOCAINE W/EPINEPHRI NE) 1 %-1:200,000 30 mL 02-01 15:05: 00 02-01 20:49 :19 No PRN, Starting on Mon02/02/24 at 1005, Intra-op [facility] NaCl 0.9% (NS) IV infusion 02-01 15:05: 00 02-01 20:49 :19 No CONTINUOUS PRN, Starting on Mon02/02/24 at 1005, Until Mon02/02/24 at 1549, Routine, [facility] (HEPARIN LOCKFLUSH(P ORCINE)(PF) ) 100 unit/mL injection 02-01 15:02: 00 02-01 20:49 :19 No PRN, Starting on Mon02/02/24 at 1002, Until Mon02/02/24 at 1549, Routine, Intra-op [facility] NaCl 0.9% (NS) IV infusion 1,000 mL 02-01 14:30: 00 02-01 20:49 :19 No 1000mL at 42 mL/hr, IV Infusion, CONTINUOUS , Starting on Mon02/02/24 at 0930, Until Mon02/02/24 at 1549, Routine, DSU Pre-op [facility] HYDROcodone -acetaminop hen 5-325 mg tablet 02-01 00:00: 00 02-09 04:59 :00 No [id number] 1{tbl} Take 1 tablet by mouth every 6 (six) hours as needed for Pain (scale 7-10) for up to 7 days. Indication s: acute pain [facility] methocarbam oL 500 mg tablet 01-18 00:00: 00 Yes 1000mg Take 2 tablets by mouth 4 times daily. As needed [facility] bumetanide 2 mg tablet 01-17 00:00: 00 09-08 00:00 :00 No 2mg Take 1 tablet by mouth ONCE PRN (Lower extremity swelling). [facility] bimatoprost (LUMIGAN) 0.01 % ophthalmic drops 12-27 09:08: 29 Yes 1[drp] Place 1 Drop in each eye in the morning. [facility] atenoloL 25 mg tablet 12-27 09:08: 29 Yes 25mg Take 1 tablet by mouth at bedtime. [facility] calcium acetate,stephen sphat bind, 667 mg capsule 12-27 09:08: 29 Yes 667mg Take 1 capsule by mouth in the morning and 1 capsule at noon and 1 capsule in the evening. Take with meals. [facility] sodium bicarbonate 650 mg tablet 12-27 09:08: 29 Yes TAKE 1 TABLET BY MOUTH IN THE MORNING AND 1 AT NOON AND 1 IN THE EVENING WITH MEALS [facility] liraglutide (VICTOZA 2-CUCO) 0.6 mg/0.1 mL (18 mg/3 mL) injection 12-27 09:08: 29 01-21 00:00 :00 No 1.2mg inject 1.2 mg under the skin. [facility] amLODIPine 10 mg tablet 12-21 00:00: 00 12-22 04:59 :00 No 10mg Take 1 tablet by mouth in the morning. [facility] traZODone 50 mg tablet 12-21 00:00: 00 12-22 04:59 :00 No 50mg Take 1 tablet by mouth as needed. [facility] latanoprost 0.005 % ophthalmic drops 12-01 00:00: 00 Yes 1[drp] Place 1 drop in both eyes every evening. [facility] hydralAZINE (APRESOLINE ) injection 10 mg - 02:15: 00 09-16 02:12 :00 No 10mg 10 mg, Slow IV Push, ONCE, 1 dose, On Mon09/15/23 at 2015, [facility]KE [facility] fluticasone propionate 50 mcg/actuati on nasal spray 2022-09 00:00: 00 08-10 05:59 :00 No 1{spray } Use 1 Isabela in each nostril. [facility] diphenhydrA MINE (BENADRYL) tablet 50 mg 10-22 20:30: 00 10-22 20:29 :00 No 50mg 50 mg, Oral, ONCE, 1 dose, On 10/22/22 at 1430, [facility] Victoza 18 MG/3ML Victoza 18 MG/3ML 03-02 00:00: 00 04-01 00:00 :00 No QD Victoza 18 MG/3ML Vitamin D3 79952 UNIT Vitamin D3 37111 UNIT 03-01 00:00: 00 05-30 00:00 :00 No 1{capsu le} Vitamin D3 22127 UNIT cloNIDine (CATAPRES) tablet 0.2 mg 01-06 13:00: 00 Yes .2mg 0.2 mg, Oral, TID, First dose on Kaylie 01/06/22 at 0800, Until Discontinu ed, Routine [facility] Lisinopril- hydroCHLORO thiazide 20-12.5 MG Lisinopril- [...] 5 MG lancets (FREESTYLE LANCETS) 28 gauge [facility] 3-28 00:00: 00 Yes [id number] USE ONE LANCET TO CHECK BLOOD GLUCOSE 2 TO 3 TIMES A DAY [facility] lancets (FREESTYLE LANCETS) 28 gauge Misc 3-28 00:00: 00 Yes [id number] USE ONE LANCET TO CHECK BLOOD GLUCOSE 2 TO 3 TIMES A DAY [facility] blood sugar diagnostic strip 1-11 00:00: 00 Yes [id number] Check sugars 2-3 times a day. Dx Code E11.9. Brand per insurance. Patient has uncontroll ed diabetes and needs to check sugars at least 2 times a day. ACCU-CHEK- same brand as meter [facility] Blood-Gluco se Meter Kit 09-21 00:00: 00 Yes [id number] Check sugars 2-3 times a day. Dx Code E11.9. Brand per insurance. Patient has uncontroll ed diabetes and needs to check sugars at least 2 times a day. ACCU-CHEK [facility] Lancets Misc 09-21 00:00: 00 Yes [id number] Check sugars 2-3 times a day. Dx Code E11.9. Brand per insurance. Patient has uncontroll ed diabetes and needs to check sugars at least 2 times a day. ACCU-CHEK- same brand as meter [facility] blood sugar diagnostic strip 09-21 00:00: 00 Yes [id number] Check sugars 2-3 times a day. Dx Code E11.9. Brand per insurance. Patient has uncontroll ed diabetes and needs to check sugars at least 2 times a day. ACCU-CHEK- same brand as meter [facility] Blood-Gluco se Meter Kit 09-21 00:00: 00 Yes [id number] Check sugars 2-3 times a day. Dx Code E11.9. Brand per insurance. Patient has uncontroll ed diabetes and needs to check sugars at least 2 times a day. ACCU-CHEK [facility] sildenafiL (VIAGRA) 100 mg tablet 09-17 00:00: 00 03-14 00:00 :00 No [id number] 100mg Take 1 tablet by mouth daily. [facility] lisinopriL- hydrochloro thiazide 20-25 mg per tablet 2020-09 00:00: 00 03-14 00:00 :00 No [id number] 1{tbl} Take 1 tablet by mouth daily. [facility] metformin ER 500 mg 24 hr tablet 2020-09 00:00: 00 02-28 00:00 :00 No [id number] 1000mg Take 2 tablets by mouth 2 (two) times daily. [facility] doxazosin 2 mg tablet 2020-09 00:00: 00 01-21 00:00 :00 No [id number] 2mg Take 1 tablet by mouth at bedtime. [facility] bimatoprost (LUMIGAN) 0.01 % ophthalmic drops 05-06 11:38: 50 Yes 1[drp] Place 1 Drop in each eye in the morning. [facility] atorvastati n 20 mg tablet 04-09 08:46: 06 Yes 20mg Take 1 tablet by mouth at bedtime. [facility] Insulin Regular Human (NOVOLIN R FLEXPEN) 100 unit/mL (3 mL) InPn 04-09 00:00: 00 01-21 00:00 :00 No [id number] Check blood sugars fasting before meals and 2 hours after 1 meal of the day. If sugars are 180-200 take 6 units of insulin, 201-250 take 8 units, 251-300 take 10 units, 301-350 take 12 units, 351-400 take 14 units, 401-450 take 16 units, 451-500 take 18 units, if >500 take 20 units, recheck in 2 hours. If still high call the clinic. [facility] Blood-Gluco se Meter Kit 04-09 00:00: 00 09-21 00:00 :00 No [id number] Check sugars 2-3 times a day. Dx Code E11.9. Brand per insurance. Patient has uncontroll ed diabetes and needs to check sugars at least 2 times a day. [facility] blood sugar diagnostic strip 04-09 00:00: 00 09-21 00:00 :00 No [id number] Check sugars 2-3 times a day. Dx Code E11.9. Brand per insurance. Patient has uncontroll ed diabetes and needs to check sugars at least 2 times a day. [facility] Lancets Misc 04-09 00:00: 00 09-21 00:00 :00 No [id number] Check sugars 2-3 times a day. Dx Code E11.9. Brand per insurance. Patient has uncontroll ed diabetes and needs to check sugars at least 2 times a day. [facility] ergocalcife rol, vitamin d2, (VITAMIN D2) 1,250 mcg (50,000 unit) capsule 03-08 00:00: 00 02-28 00:00 :00 No [id number] 33391F Take 1 capsule by mouth weekly. [facility] insulin syr/ndl U100 half adri 0.3 mL 30 gauge x 1/2" Syrg 03-08 00:00: 00 01-21 00:00 :00 No [id number] 1{syrin ge} 1 Syringe 2 (two) times daily. [facility] insulin glargine (LANTUS U-100 INSULIN) 100 unit/mL injection 03-04 00:00: 00 01-21 00:00 :00 No [id number] 20U inject 20 Units under the skin daily. [facility] prednisoLON E acetate 1 % ophthalmic suspension drops 09 00:00: 00 03-11 00:00 :00 No 1[drp] Place 1 Drop in both eyes in the morning. [facility] metFORMIN HCl 500 MG metFORMIN HCl [...] t} QD Lisinopril 20 MG Vitamin D3 03545 UNIT Vitamin D3 94601 UNIT No 1{capsu le} Vitamin D3 33948 UNIT Lisinopril 20 MG Lisinopril 20 MG No 1{table t} QD Lisinopril 20 MG metFORMIN HCl ER 500 MG metFORMIN HCl ER 500 MG No BID metFORMIN HCl ER 500 MG Victoza 18 MG/3ML Victoza 18 MG/3ML No QD Victoza 18 MG/3ML Vitamin D3 76833 UNIT Vitamin D3 21282 UNIT No 1{capsu le} Vitamin D3 23226 UNIT Lisinopril 20 MG Lisinopril 20 MG [...] Atorvastat in Calcium 20 MG Vitamin D3 35249 UNIT Vitamin D3 69006 UNIT No 1{capsu le} Vitamin D3 90499 UNIT Lisinopril- hydroCHLORO thiazide 20-12.5 MG Lisinopril- [...] No Sildenafil Citrate 100 MG Vitamin D3 91457 UNIT Vitamin D3 73681 UNIT No 1{capsu le} Vitamin D3 58796 UNIT Lisinopril- hydroCHLORO thiazide 20-12.5 MG Lisinopril- [...] No BID metFORMIN HCl ER 500 MG Vitamin D3 59922 UNIT Vitamin D3 39008 UNIT No 1{capsu le} Vitamin D3 74955 UNIT Atorvastati n Calcium 20 MG Atorvastati [...] - single dose syringe 2022-06-16 08:58:[address] [facility] Flucelvax - single dose syringe Flucelvax - single dose syringe 2022-06-16 08:58:[address] [facility] Flucelvax - single dose syringe Flucelvax - single dose syringe 2022-06-16 08:58:[address] [facility] Pneumococcal 15 Conjugate, PCV15 (Vaxneuvance) 2022-01-04 [...] SARS-COV-2 COVID-19 VACCINE - (MODERNA) Unknown Completed [facility] Pneumococcal 15 Conjugate, PCV15 (Vaxneuvance) [...] Flucelvax - single dose syringe Unknown Completed [facility] Flucelvax - single dose syringe Flucelvax - single dose syringe Unknown Completed [facility] Vital Signs Vital Name Observation Time Observation Value Comments S ource Systolic blood pressure 2025-06-13 19:47:00 136 mm[Hg] [facility] Diastolic blood pressure 2025-06-13 19:47:00 73 mm[Hg] [facility] Heart rate 2025-06-13 19:47:00 81 /min [facility] Body temperature 2025-06-13 19:47:00 36.67 Kristal [facility] Respiratory rate 2025-06-13 19:47:00 16 /min [facility] Body height 2025-06-13 19:47:00 172.7 cm [facility] Body weight 2025-06-13 19:47:00 83.008 kg [facility] BMI 2025-06-13 19:47:00 27.83 kg/m2 [facility] Oxygen saturation in Arterial blood by Pulse oximetry 2025-06-13 19:47:00 96 /min [facility] Systolic blood pressure 2025-06-09 20:08:00 141 mm[Hg] [facility] Diastolic blood pressure 2025-06-09 20:08:00 85 mm[Hg] [facility] Heart rate 2025-06-09 20:08:00 90 /min [facility] Body height 2025-06-09 20:08:00 172.7 cm [facility] Body weight 2025-06-09 20:08:00 82.691 kg [facility] BMI 2025-06-09 20:08:00 27.72 kg/m2 [facility] Oxygen saturation in Arterial blood by Pulse oximetry 2025-06-09 20:08:00 95 /min [facility] Systolic blood pressure 2025-05-30 07:20:00 152 mm[Hg] [facility] Diastolic blood pressure 2025-05-30 07:20:00 89 mm[Hg] [facility] Heart rate 2025-05-30 07:20:00 98 /min [facility] Body temperature 2025-05-30 07:20:00 36.56 Kristal [facility] Respiratory rate 2025-05-30 07:20:00 18 /min [facility] Oxygen saturation in Arterial blood by Pulse oximetry 2025-05-30 07:20:00 99 /min [facility] Body height 2025-05-30 05:25:00 172.7 cm [facility] Body weight 2025-05-30 05:25:00 78.472 kg [facility] BMI 2025-05-30 05:25:00 26.30 kg/m2 [facility] Systolic blood pressure 2025 22:03:00 162 mm[Hg] [facility] Diastolic blood pressure 2025 22:03:00 94 mm[Hg] [facility] Heart rate 2025 22:03:00 100 /min [facility] Body temperature 2025 22:01:00 36.28 Kristal [facility] Body height 2025 22:01:00 172.7 cm [facility] Body weight 2025 22:01:00 78.881 kg [facility] BMI 2025 22:01:00 26.44 kg/m2 [facility] Oxygen saturation in Arterial blood by Pulse oximetry 2025 22:01:00 100 /min [facility] Systolic blood pressure 2025-05-28 02:41:00 154 mm[Hg] [facility] Diastolic blood pressure 2025-05-28 02:41:00 93 mm[Hg] [facility] Heart rate 2025-05-28 02:41:00 97 /min [facility] Body temperature 2025-05-28 02:41:00 36.61 Kristal [facility] Respiratory rate 2025-05-28 02:41:00 20 /min [facility] Body height 2025-05-28 02:41:00 172.7 cm [facility] Body weight 2025-05-28 02:41:00 81 kg [facility] BMI 2025-05-28 02:41:00 27.15 kg/m2 [facility] Oxygen saturation in Arterial blood by Pulse oximetry 2025-05-28 02:41:00 100 /min [facility] Systolic blood pressure 2025-05-14 16:41:00 145 mm[Hg] [facility] Diastolic blood pressure 2025-05-14 16:41:00 83 mm[Hg] [facility] Heart rate 2025-05-14 16:41:00 93 /min [facility] Body temperature 2025-05-14 16:41:00 36.61 Kristal [facility] Respiratory rate 2025-05-14 16:41:00 18 /min [facility] Oxygen saturation in Arterial blood by Pulse oximetry 2025-05-14 16:41:00 100 /min [facility] Body weight 2025-05-14 08:17:00 85.957 kg [facility] BMI 2025-05-14 08:17:00 28.81 kg/m2 [facility] Body height 2025-05-10 10:18:00 172.7 cm [facility] Systolic blood pressure 2025-05-13 20:59:47 149 mm[Hg] [facility] Diastolic blood pressure 2025-05-13 20:59:47 87 mm[Hg] [facility] Respiratory rate 2025-05-13 20:59:47 20 /min [facility] Oxygen saturation in Arterial blood by Pulse oximetry 2025-05-13 20:59:47 100 /min [facility] Heart rate 2025-05-13 18:00:00 92 /min [facility] Body weight 2025-05-13 18:00:00 84.5 kg [facility] BMI 2025-05-13 18:00:00 28.81 kg/m2 [facility] Body temperature 2025-05-13 13:32:00 36.72 Kristal [facility] Body height 2025-05-10 10:18:00 172.7 cm [facility] Systolic blood pressure 2025-05-06 04:53:00 158 mm[Hg] [facility] Diastolic blood pressure 2025-05-06 04:53:00 90 mm[Hg] [facility] Heart rate 2025-05-06 04:53:00 108 /min [facility] Body temperature 2025-05-06 04:53:00 37.06 Kristal [facility] Respiratory rate 2025-05-06 04:53:00 19 /min [facility] Oxygen saturation in Arterial blood by Pulse oximetry 2025-05-06 04:53:00 96 /min [facility] Systolic blood pressure 2025-03-20 11:00:00 183 mm[Hg] [facility] Diastolic blood pressure 2025-03-20 11:00:00 109 mm[Hg] [facility] Heart rate 2025-03-20 11:00:00 104 /min [facility] Body temperature 2025-03-20 11:00:00 36.67 Kristal [facility] Respiratory rate 2025-03-20 11:00:00 21 /min [facility] Oxygen saturation in Arterial blood by Pulse oximetry 2025-03-20 11:00:00 92 /min [facility] Body height 2025-03-20 09:03:00 172.7 cm [facility] Body weight 2025-03-20 09:03:00 79.379 kg [facility] BMI 2025-03-20 09:03:00 26.61 kg/m2 [facility] Systolic blood pressure 2025-03-14 16:53:00 120 mm[Hg] [facility] Diastolic blood pressure 2025-03-14 16:53:00 76 mm[Hg] [facility] Heart rate 2025-03-14 16:53:00 80 /min [facility] Body temperature 2025-03-14 16:53:00 36.61 Kristal [facility] Respiratory rate 2025-03-14 16:53:00 14 /min [facility] Oxygen saturation in Arterial blood by Pulse oximetry 2025-03-14 16:53:00 98 /min [facility] Body weight 2025-03-14 09:00:00 76 kg [facility] BMI 2025-03-14 09:00:00 25.48 kg/m2 [facility] Body height 2025-03-11 18:10:00 172.7 cm [facility] Systolic blood pressure 2024-12-21 23:34:00 147 mm[Hg] [facility] Diastolic blood pressure 2024-12-21 23:34:00 85 mm[Hg] [facility] Heart rate 2024-12-21 23:34:00 108 /min [facility] Body temperature 2024-12-21 23:34:00 37.22 Kristal [facility] Respiratory rate 2024-12-21 23:34:00 16 /min [facility] Body height 2024-12-21 23:34:00 170.2 cm [facility] Body weight 2024-12-21 23:34:00 75.297 kg [facility] BMI 2024-12-21 23:34:00 26.00 kg/m2 [facility] Oxygen saturation in Arterial blood by Pulse oximetry 2024-12-21 23:34:00 99 /min [facility] Systolic blood pressure 2024-09-08 21:51:00 156 mm[Hg] [...] [facility] [place] height 2022-06-16 08:20:00 66.5 [in_i] [facility] weight 2022-06-16 08:20:00 152 [lb_av] [facility] temperature 2022-06-16 08:20:00 96.7 [degF] [facility] bmi 2022-06-16 08:20:00 24.16 kg/m2 [facility] oximetry 2022-06-16 08:20:00 98 % [facility] respiratory rate 2022-06-16 08:20:00 18 /min [facility] blood pressure systolic 2022-06-16 08:20:00 138 mm[Hg] [facility] blood pressure diastolic 2022-06-16 08:20:00 82 mm[Hg] [facility] height 2022-04-04 15:00:00 68.00 [in_i] [facility] weight 2022-04-04 15:00:00 152.2 [lb_av] [facility] temperature 2022-04-04 15:00:00 98.4 [degF] [facility] bmi 2022-04-04 15:00:00 23.14 kg/m2 [facility] oximetry 2022-04-04 15:00:00 98 % [facility] respiratory rate 2022-04-04 15:00:00 18 /min [facility] blood pressure systolic 2022-04-04 15:00:00 137 mm[Hg] [facility] blood pressure diastolic 2022-04-04 15:00:00 76 mm[Hg] [facility] height 2022-04-04 15:20:00 68.00 [in_i] [facility] weight 2022-04-04 15:20:00 152.2 [lb_av] [facility] temperature 2022-04-04 15:20:00 98.4 [degF] [facility] bmi 2022-04-04 15:20:00 23.14 kg/m2 [facility] oximetry 2022-04-04 15:20:00 98 % [facility] respiratory rate 2022-04-04 15:20:00 18 /min [facility] blood pressure systolic 2022-04-04 15:20:00 137 mm[Hg] [facility] blood pressure diastolic 2022-04-04 15:20:00 76 mm[Hg] [facility] height 2022-03-02 09:10:00 68.00 [in_i] [facility] weight 2022-03-02 09:10:00 157.2 [lb_av] [facility] temperature 2022-03-02 09:10:00 97.3 [degF] [facility] bmi 2022-03-02 09:10:00 23.9 kg/m2 [facility] oximetry 2022-03-02 09:10:00 100 % [facility] respiratory rate 2022-03-02 09:10:00 18 /min [facility] blood pressure systolic 2022-03-02 09:10:00 138 mm[Hg] [facility] blood pressure diastolic 2022-03-02 09:10:00 82 mm[Hg] [facility] height 2022-02-16 08:00:00 68.00 [in_i] [facility] weight 2022-02-16 08:00:00 156.9 [lb_av] [facility] temperature 2022-02-16 08:00:00 97.2 [degF] [facility] bmi 2022-02-16 08:00:00 23.85 kg/m2 [facility] oximetry 2022-02-16 08:00:00 99 % [facility] respiratory rate 2022-02-16 08:00:00 18 /min [facility] blood pressure systolic 2022-02-16 08:00:00 132 mm[Hg] [facility] blood pressure diastolic 2022-02-16 08:00:00 76 mm[Hg] [facility] Systolic blood pressure 2022-01-06 04:43:00 189 [...] [facility] [place] oximetry 2022-01-04 10:00:00 97 % [facility] respiratory rate 2022-01-04 10:00:00 17 /min [facility] blood pressure systolic 2022-01-04 10:00:00 137 mm[Hg] [facility] blood pressure diastolic 2022-01-04 10:00:00 85 mm[Hg] [facility] height 2022-01-04 10:00:00 68.00 [in_i] [facility] weight 2022-01-04 10:00:00 156.6 [lb_av] [facility] temperature 2022-01-04 10:00:00 97.8 [degF] [facility] bmi 2022-01-04 10:00:00 23.81 kg/m2 [facility] Systolic blood pressure 2024-09-08 21:51:00 156 [...] Date / Time Performed Performing Clinician Source ED SPLINT APPLICATION 2025-05-30 07:07:16 Terese King se [facility] XR FOREARM 2 VW RIGHT 2025-05-30 06:12:55 Terese King se [facility] XR HAND 3+ VW RIGHT 2025-05-30 06:12:55 Oren King [facility] XR WRIST 3+ VW RIGHT 2025-05-30 06:12:55 Vee Knig [facility] POCT GLUCOSE (AUTOMATED) 2025-05-14 18:45:00 Bradley Esquivel Waqas dinh [facility] POCT GLUCOSE (AUTOMATED) 2025-05-14 18:45:00 Bradley Esquivel Waqas dinh [facility] POCT GLUCOSE (AUTOMATED) 2025-05-14 15:58:00 Bradley Esquivel Waqas [facility] POCT GLUCOSE (AUTOMATED) 2025-05-14 15:58:00 Bradley Esquivel [facility] LOWER EXTREMITY PSEUDOANEURYSM DUPLEX RIGHT - BY VASCULAR LAB 2025-05-14 15:40:03 Jairon Arrington [facility] HB ECG ROUTINE & RHYTHM STRIP 2025-05-14 13:48:10 Gerardo [facility] HB ECG ROUTINE & RHYTHM STRIP 2025-05-14 13:48:10 Gerardo [facility] MAGNESIUM 2025-05-14 09:29:00 Gerardo Shanti [facility] BASIC METABOLIC PANEL (NA, K, CL, CO2, GLUCOSE, BUN, CREATININE, CA) 2025-05-14 09:29:00 Gerardo [facility] CBC WITH DIFF 2025-05-14 09:29:00 Gerardo [facility] MAGNESIUM 2025-05-14 09:29:00 Gerardo [facility] BASIC METABOLIC PANEL (NA, K, CL, CO2, GLUCOSE, BUN, CREATININE, CA) 2025-05-14 09:29:00 Gerardo [facility] CBC WITH DIFF 2025-05-14 09:29:00 Gerardo, Shanti [facility] CBC WITH DIFF 2025-05-14 03:13:00 David Ochoa [facility] CBC WITH DIFF 2025-05-14 03:13:00 Don David [facility] POCT GLUCOSE (AUTOMATED) 2025-05-14 01:45:00 Sha labmehrdadBradley [facility] POCT GLUCOSE (AUTOMATED) 2025-05-14 01:45:00 Sha labyBradley [facility] POCT GLUCOSE (AUTOMATED) 2025-05-13 22:37:00 Sha laby Bradley Colon [facility] POCT GLUCOSE (AUTOMATED) 2025-05-13 22:37:00 Sha laby Bradley Torresdinh [facility] CATH PROCEDURE LOG 2025-05-13 21:24:29 Doctor Un assigned, [address] [facility] CATH PROCEDURE LOG 2025-05-13 21:24:29 Doctor Un assigned, [address] [facility] CARDIAC CATHETERIZATION 2025-05-13 20:44:13 Shal tommy, doc Waqas Briandinh [facility] CARDIAC CATHETERIZATION 2025-05-13 20:44:13 Shal tommy doc Waqas dinh [facility] CARDIAC CATHETERIZATION 2025-05-13 20:44:13 Shal tommy, doc Colon [facility] CARDIAC CATHETERIZATION 2025-05-13 20:44:13 Shal tommy doc Alan Briandinh [facility] CARDIAC CATHETERIZATION 2025-05-13 20:44:13 Shal tommy doc Alan Briandinh [facility] CARDIAC CATHETERIZATION 2025-05-13 20:44:13 Shal tommy doc Alan Briandinh [facility] CARDIAC CATHETERIZATION 2025-05-13 20:44:13 Shal tommy doc Waqasmarlene Colon [facility] CARDIAC CATHETERIZATION 2025-05-13 20:44:13 Shal tommyBradley dinh [facility] [facility] CARDIAC CATHETERIZATION 2025-05-13 20:44:13 Tai Bradley sanders dinh [facility] CARDIAC CATHETERIZATION 2025-05-13 20:44:13 Tai sandersBradley dinh [facility] POCT ACT LOW RANGE 2025-05-13 20:35:00 [facility] POCT ACT LOW RANGE 2025-05-13 20:02:00 VillaBradley Waqas [facility] HB ECG ROUTINE & RHYTHM STRIP 2025-05-13 13:13:43 Murphy [facility] HB ECG ROUTINE & RHYTHM STRIP 2025-05-13 13:13:43 Murphy [facility] POCT GLUCOSE (AUTOMATED) 2025-05-13 12:42:00 Cecelia [facility] POCT GLUCOSE (AUTOMATED) 2025-05-13 12:42:00 Cecelia [facility] MAGNESIUM 2025-05-13 10:26:00 Tarah Barrow [facility] BASIC METABOLIC PANEL (NA, K, CL, CO2, GLUCOSE, BUN, CREATININE, CA) 2025-05-13 10:26:00 Danial [facility] CBC WITHOUT DIFF 2025-05-13 10:26:00 Tarah Barrow [facility] MAGNESIUM 2025-05-13 10:26:00 Tarah Barrow [facility] BASIC METABOLIC PANEL (NA, K, CL, CO2, GLUCOSE, BUN, CREATININE, CA) 2025-05-13 10:26:00 Danial [facility] CBC WITHOUT DIFF 2025-05-13 10:26:00 Tarah Barrow [facility] POCT GLUCOSE (AUTOMATED) 2025-05-13 01:23:00 Cecelia [facility] POCT GLUCOSE (AUTOMATED) 2025-05-13 01:23:00 Cecelia [facility] POCT GLUCOSE (AUTOMATED) 2025-05-12 23:01:00 Cecelia [facility] POCT GLUCOSE (AUTOMATED) 2025-05-12 23:01:00 Cecelia [facility] IRON PANEL 2025-05-12 19:47:00 Murphy [facility] IRON PANEL 2025-05-12 19:47:00 Murphy [facility] POCT GLUCOSE (AUTOMATED) 2025-05-12 17:21:00 Cecelia [facility] POCT GLUCOSE (AUTOMATED) 2025-05-12 17:21:00 Cecelia [facility] POCT GLUCOSE (AUTOMATED) 2025-05-12 14:10:00 Cecelia [facility] POCT GLUCOSE (AUTOMATED) 2025-05-12 14:10:00 Cecelia [facility] MAGNESIUM 2025-05-12 09:23:00 Lilian Judge [facility] FERRITIN SERUM 2025-05-12 09:23:00 Murphy [facility] BASIC METABOLIC PANEL (NA, K, CL, CO2, GLUCOSE, BUN, CREATININE, CA) 2025-05-12 09:23:00 Lilian Judge [facility] CBC WITH DIFF 2025-05-12 09:23:00 Lilian Judge [facility] MAGNESIUM 2025-05-12 09:23:00 Lilian Judge [facility] FERRITIN SERUM 2025-05-12 09:23:00 Murphy [facility] BASIC METABOLIC PANEL (NA, K, CL, CO2, GLUCOSE, BUN, CREATININE, CA) 2025-05-12 09:23:00 Lilian Judge [facility] CBC WITH DIFF 2025-05-12 09:23:00 Lilian Judge [facility] HB ECG ROUTINE & RHYTHM STRIP 2025-05-12 00:54:55 Leticia Chance [facility] HB ECG ROUTINE & RHYTHM STRIP 2025-05-12 00:54:55 Leticia ChanceIsabelDamián [facility] POCT GLUCOSE (AUTOMATED) 2025-05-12 00:42:00 Bryant Rai [facility] POCT GLUCOSE (AUTOMATED) 2025-05-12 00:42:00 Bryant Rai [facility] POCT GLUCOSE (AUTOMATED) 2025-05-11 21:45:00 Becky Gandhi [facility] POCT GLUCOSE (AUTOMATED) 2025-05-11 21:45:00 Becky Gandhi [facility] POCT GLUCOSE (AUTOMATED) 2025-05-11 16:38:00 Becky Gandhi [facility] POCT GLUCOSE (AUTOMATED) 2025-05-11 16:38:00 Becky Gandhi [facility] TRANSTHORACIC ECHO (TTE) COMPLETE W/ CONTRAST 2025-05-11 15:02:54 Frederick Sebastian [facility] TRANSTHORACIC ECHO (TTE) COMPLETE W/ CONTRAST 2025-05-11 15:02:54 Frederick Sebastian.oSnam [facility] POCT GLUCOSE (AUTOMATED) 2025-05-11 12:40:00 Becky Gandhi [facility] POCT GLUCOSE (AUTOMATED) 2025-05-11 12:40:00 Becky Gandhi [facility] PHOSPHORUS 2025-05-11 09:43:00 [facility]25-05-11 09:43:00 Martell Gandhi [facility] TROPONIN I 2025-05-11 09:43:00 Martell Gandhi [facility] BASIC METABOLIC PANEL (NA, K, CL, CO2, GLUCOSE, BUN, CREATININE, CA) 2025-05-11 09:43:00 Martell Gandhi [facility] LIPID PANEL (07136)(TOTAL CHOLESTEROL, TRIGLYCERIDES, HDL) 2025-05-11 09:43:00 Lilian Judge [facility] CBC WITH DIFF 2025-05-11 09:43:00 [facility] 2025-05-11 09:43:00 [facility] 2025-05-11 09:43:00 Martell Gandhi [facility] TROPONIN I 2025-05-11 09:43:00 Martell Gandhi [facility] BASIC METABOLIC PANEL (NA, K, CL, CO2, GLUCOSE, BUN, CREATININE, CA) 2025-05-11 09:43:00 Martell Gandhi [facility] LIPID PANEL ([id number])(TOTAL CHOLESTEROL, TRIGLYCERIDES, HDL) 2025-05-11 09:43:00 Lilian Judge [facility] CBC WITH DIFF 2025-05-11 09:43:00 Martell Gandhi Un [facility] POCT GLUCOSE (AUTOMATED) 2025-05-10 23:59:00 Becky Gandhi [facility] POCT GLUCOSE (AUTOMATED) 2025-05-10 23:59:00 Becky Gandhi [facility] MRSA / MSSA SCREEN BY PCR, [facility] 2025-05-10 16:50:00 Jeremiah Crawford [facility] MRSA / MSSA SCREEN BY PCR, [facility] 2025-05-10 16:50:00 Jeremiah Crawford [facility] POCT GLUCOSE (AUTOMATED) 2025-05-10 16:35:00 Becky Gandhi [facility] POCT GLUCOSE (AUTOMATED) 2025-05-10 16:35:00 Becky Gandhi [facility] POCT GLUCOSE (AUTOMATED) 2025-05-10 12:30:00 Becky Gandhi [facility] POCT GLUCOSE (AUTOMATED) 2025-05-10 12:30:00 Becky Gandhi [facility] TROPONIN I 2025-05-10 10:11:00 Martell Gandhi [facility] TROPONIN I 2025-05-10 10:11:00 Martell Gandhi [facility] XR CHEST 1 VW 2025-05-10 07:01:12 [facility] 2025-05-10 07:01:12 [facility] INFLUENZA A/B RSV COVID NAAT 2025-05-10 06:55:00 Julian Morales [facility] INFLUENZA A/B RSV COVID NAAT 2025-05-10 06:55:00 Julian Morales [facility] TROPONIN I 2025-05-10 06:52:00 Julian Morales [facility] COMP. METABOLIC PANEL ([id number]) 2025-05-10 06:52:00 Julian Morales [facility] CBC WITH DIFF 2025-05-10 06:52:00 Julian Morales [facility] N-TERMINAL PRO-BNP 2025-05-10 06:52:00 Jessica Morales [facility] PROCALCITONIN 2025-05-10 06:52:00 Martell Gandhi [facility] TROPONIN I 2025-05-10 06:52:00 Julian Morales [facility] COMP. METABOLIC PANEL ([id number]) 2025-05-10 06:52:00 Julian Morales [facility] CBC WITH DIFF 2025-05-10 06:52:00 Julian Morales [facility] N-TERMINAL PRO-BNP 2025-05-10 06:52:00 Jessica Morales [facility] PROCALCITONIN 2025-05-10 06:52:00 Martell Gandhi [facility] HB ECG ROUTINE & RHYTHM STRIP 2025-05-10 06:51:24 Julian Morales [facility] HB ECG ROUTINE & RHYTHM STRIP 2025-05-10 06:51:24 Julian Morales [facility] CT ABDOMEN PELVIS WO CONTRAST 2025-05-06 02:40:41 Pamella Johns [facility] COMP. METABOLIC PANEL ([id number]) 2025-05-06 02:11:00 Pamella Johns [facility] CBC WITH DIFF 2025-05-06 02:11:00 Pamella Johns [facility] PROTHROMBIN TIME / INR 2025-05-06 02:11:00 Werner Johns [facility] US TESTICULAR TORSION 2025-05-06 01:59:04 Tiesha Johns [facility] BASIC METABOLIC PANEL (NA, K, CL, CO2, GLUCOSE, BUN, CREATININE, CA) 2025-03-20 09:48:00 Pamella Johns [facility] CBC WITH DIFF 2025-03-20 09:48:00 Pamella Johns [facility] POCT GLUCOSE (AUTOMATED) 2025-03-14 16:58:00 Jeanne Real [facility] POCT GLUCOSE (AUTOMATED) 2025-03-14 16:50:00 Jeanne Real [facility] PHOSPHORUS 2025-03-14 14:51:00 Angélica Allen [facility] MAGNESIUM 2025-03-14 14:51:00 Angélica Allen [facility] COMP. METABOLIC PANEL ([id number]) 2025-03-14 14:51:00 Angélica Allen V. [facility] CBC WITH DIFF 2025-03-14 14:51:00 Angélica Allen [facility] POCT GLUCOSE (AUTOMATED) 2025-03-14 12:42:00 Jeanne Real [facility] COMP. METABOLIC PANEL ([id number]) 2025-03-14 01:42:00 Angélica Allen V. [facility] POCT GLUCOSE (AUTOMATED) 2025-03-13 21:57:00 Jeanne Real [facility] LOWER EXTREMITY ARTERIAL DUPLEX BILATERAL - BY VASCULAR LAB 2025-03-13 20:04:00 Cuong Smith [facility] POCT GLUCOSE (AUTOMATED) 2025-03-13 16:57:00 Jeanne Real [facility] POCT GLUCOSE (AUTOMATED) 2025-03-13 12:58:00 Jeanne Real [facility] PHOSPHORUS 2025-03-13 08:57:[address] [facility] MAGNESIUM 2025-03-13 08:57:[address] [facility] BASIC METABOLIC PANEL (NA, K, CL, CO2, GLUCOSE, BUN, CREATININE, CA) 2025-03-13 08:57:00 John Real [facility] CBC WITHOUT DIFF 2025-03-13 08:57:00 John Real [facility] GLYCOSYLATED HEMOGLOBIN (A1C) 2025-03-13 08:57:00 John Real [facility] POCT GLUCOSE (AUTOMATED) 2025-03-13 02:04:00 Jeanne Real [facility] LACTATE DEHYDROGENASE 2025-03-12 22:00:00 Nico Smith [facility] XR CHEST 1 VW 2025-03-12 21:17:[address] [facility] T.PROTEIN BODY FLUID 2025-03-12 21:07:00 [facility] 2025-03-12 21:06:00 Cuong Smith [facility] BODY FLUID DIRECT COUNT 2025-03-12 21:06:00 Iain Smith [facility] IR THORACENTESIS WITH IMAGING 2025-03-12 21:00:00 Cuong Smith [facility] POCT GLUCOSE (AUTOMATED) 2025-03-12 20:59:00 Jeanne Real [facility] POCT GLUCOSE (AUTOMATED) 2025-03-12 16:51:00 Jeanne Real [facility] POCT GLUCOSE (AUTOMATED) 2025-03-12 13:14:00 Jeanne Real [facility] PHOSPHORUS 2025-03-12 10:19:[address] [facility] LACTATE DEHYDROGENASE 2025-03-12 10:19:00 Nico Smith [facility] MAGNESIUM 2025-03-12 10:19:[address] [facility] BASIC METABOLIC PANEL (NA, K, CL, CO2, GLUCOSE, BUN, CREATININE, CA) 2025-03-12 10:19:00 John Real [facility] CBC WITHOUT DIFF 2025-03-12 10:19:00 John Real [facility] POCT GLUCOSE (AUTOMATED) 2025-03-12 01:41:00 Jeanne Real [facility] BASIC METABOLIC PANEL (NA, K, CL, CO2, GLUCOSE, BUN, CREATININE, CA) 2025-03-11 23:01:00 John Real [facility] POCT GLUCOSE (AUTOMATED) 2025-03-11 21:55:00 Jeanne Real [facility] POCT GLUCOSE (AUTOMATED) 2025-03-11 19:55:00 Jeanne Real [facility] POCT GLUCOSE (AUTOMATED) 2025-03-11 18:23:00 Jeanne Real [facility] MRSA / MSSA SCREEN BY CHAR MENA 2025-03-11 17:23:00 John Real [facility] HB ECG ROUTINE & RHYTHM STRIP 2025-03-11 17:20:13 John Real [facility] CT THORAX WO CONTRAST 2025-03-11 15:12:00 Monika Trujillo [facility] TROPONIN I 2025-03-11 14:46:00 Monika Trujillo [facility] COMP. METABOLIC PANEL ([id number]) 2025-03-11 14:46:00 Monika Trujillo [facility] CBC WITH DIFF 2025-03-11 14:46:00 Monika Trujillo [facility] PROTHROMBIN TIME / INR 2025-03-11 14:46:00 Monika Trujillo [facility] N-TERMINAL PRO-BNP 2025-03-11 14:46:00 Asiya Trujillo [facility] RAPID STREP SCREEN FOR GROUP A 2024-12-21 23:49:00 Fany Cisneros [facility] INFLUENZA A/B RSV COVID NAAT 2024-12-21 23:49:00 Fany Cisneros [facility] POCT GLUCOSE (AUTOMATED) 2024-09-08 22:59:00 Daisha Mcgowan [facility] POCT GLUCOSE (AUTOMATED) 2024-09-08 22:59:00 Daisah Mcgowan [facility] IRON PANEL 2024-09-08 21:16:00 Demi Tobar Jignesh [facility] IRON PANEL 2024-09-08 21:16:00 Demi Tobar [facility] HEPATITIS B SURFACE ANTIGEN 2024-09-08 21:16:[address] [facility] HEPATITIS B SURFACE ANTIBODY 2024-09-08 21:16:[address] [facility] POCT GLUCOSE (AUTOMATED) 2024-09-08 17:50:00 Daisha Mcgowan [facility] POCT GLUCOSE (AUTOMATED) 2024-09-08 17:50:00 Daisha Mcgowan [facility] POCT GLUCOSE (AUTOMATED) 2024-09-08 14:27:00 Daisha Mcgowan [facility] POCT GLUCOSE (AUTOMATED) 2024-09-08 14:27:00 Daisha Mcgowan [facility] FERRITIN SERUM 2024-09-08 07:10:00 Demi Tobar Jignesh [facility] VITAMIN B12, LEVEL 2024-09-08 07:10:00 Estiven Tobar [facility] FOLATE 2024-09-08 07:10:00 Demi Tobar Jignesh [facility] TROPONIN I 2024-09-08 07:10:00 Demi Tobar [facility] THYROID STIMULATING HORMONE 2024-09-08 07:10:00 Estiven Tobar Jignesh [facility] BASIC METABOLIC PANEL (NA, K, CL, CO2, GLUCOSE, BUN, CREATININE, CA) 2024-09-08 07:10:00 Estiven Tobar [facility] INTACT PTH CALCIUM GROUP 2024-09-08 07:10:00 Naomy [facility]ad [facility] TROPONIN I 2024-09-08 07:10:00 Demi Tobar [facility] BASIC METABOLIC PANEL (NA, K, CL, CO2, GLUCOSE, BUN, CREATININE, CA) 2024-09-08 07:10:00 Estiven Tobar [facility] INTACT PTH CALCIUM GROUP 2024-09-08 07:10:00 Jarocho Laceyhammad [facility] VITAMIN D, 25-OH 2024-09-08 07:10:00 Jarocho Tobar [facility] VITAMIN B12, LEVEL 2024-09-08 07:10:00 Estiven Tobar [facility] FOLATE 2024-09-08 07:10:00 Demi Tobar [facility] FERRITIN SERUM 2024-09-08 07:10:00 Dmei [place]ar [place] [facility] THYROID STIMULATING HORMONE 2024-09-08 07:10:00 Estiven Tobar [facility] HB ECG ROUTINE & RHYTHM STRIP 2024-09-08 06:59:52 Honey Pierce [facility] POTASSIUM SERUM 2024-09-08 05:06:00 Honey [facility] PHOSPHORUS 2024-09-08 05:06:00 Demi [place]ar [facility] POTASSIUM SERUM 2024-09-08 05:06:00 Honey Pierce [facility] PHOSPHORUS 2024-09-08 05:06:00 [facility] PO[facility] GLUCOSE(AGE >30DAYS) 2024-09-08 04:28:00 Salomon Pierce [facility] POCT GLUCOSE(AGE >30DAYS) 2024-09-08 04:28:00 Salomon Pierce [facility] POCT GLUCOSE (AUTOMATED) 2024-09-08 04:26:00 Rochelle Pierce [facility] POCT GLUCOSE (AUTOMATED) 2024-09-08 04:26:00 Rochelle Pierce [facility] POCT GLUCOSE(AGE >30DAYS) 2024-09-08 03:59:00 StanSalomon strong [facility] POCT GLUCOSE(AGE >30DAYS) 2024-09-08 03:59:00 Salomon Pierce [facility] POCT GLUCOSE (AUTOMATED) 2024-09-08 03:57:00 StanRochelle strong [facility] POCT GLUCOSE (AUTOMATED) 2024-09-08 03:57:00 StanRochelle strong [facility] POCT GLUCOSE (AUTOMATED) 2024-09-08 03:15:00 StanRochelle strong [facility] POCT GLUCOSE (AUTOMATED) 2024-09-08 03:15:00 Rochelle Pierce [facility] POCT GLUCOSE(AGE >30DAYS) 2024-09-08 02:43:00 Salomon Pierce [facility] POCT GLUCOSE(AGE >30DAYS) 2024-09-08 02:43:00 Salomon Pierce [facility] HB ECG ROUTINE & RHYTHM STRIP 2024-09-08 02:40:10 Honey Pierce [facility] HB ECG ROUTINE & RHYTHM STRIP 2024-09-08 02:40:10 Honey Pierce [facility] POCT GLUCOSE (AUTOMATED) 2024-09-08 02:33:00 Rochelle Pierce [facility] POCT GLUCOSE (AUTOMATED) 2024-09-08 02:33:00 Rochelle Peirce [facility] XR CHEST 2 VW 2024-09-08 01:34:38 Honey Pierce [facility] XR CHEST 2 VW 2024-09-08 01:34:38 Honey Pierce [facility] LIPASE 2024-09-08 00:54:00 [facility] MAGNESIUM 2024-09-08 00:54:00 [facility] TROPONIN I 2024-09-08 00:54:00 [facility] COMP. METABOLIC PANEL ([id number]) 2024-09-08 00:54:00 Stan [facility] CBC WITH DIFF 2024-09-08 00:54:00 Stan [facility] TROPONIN I 2024-09-08 00:54:00 [facility]. METABOLIC PANEL ([id number]) 2024-09-08 00:54:00 Stan Honey [facility] LIPASE 2024-09-08 00:54:00 [facility] CBC WITH DIFF 2024-09-08 00:54:00 Stan [facility] MAGNESIUM 2024-09-08 00:54:00 Stan [facility] EKG-12 LEAD 2024-09-08 00:42:15 Ed Mcgowan [facility] PHYSICIAN ORDERS 2024-04-19 17:44:44 Doctor Unas signed, [address] [facility] URINALYSIS 2024-04-03 10:05:00 [facility] NERVE BLOCK 2024-02-29 12:39:50 Patrick Willis [facility] [id number] - [place] ARTERIOVENOUS ANASTOMOSIS OPEN DIRECT 2024-02-29 12:15:00 Joaquín [facility] [id number] - [place] JENNIFER FAGAN OPN F/ARM VEIN TRPOS 2024-02-29 12:15:00 Joaquín [facility] [id number] - [place] ARVLIBRADO ANAST OPN UPR ARM BASILIC VEIN TRPOS 2024-02-29 12:15:00 Joaquín [facility] [id number] - [place] ARVLIBRADO ANAST OPN UPR ARM CEPHALIC VEIN TRPOS 2024-02-29 12:15:00 Joaquín [facility] [id number] - [place] CRTJ ARVEN FSTL XCP DIR JENNIFER ANAST AUTOG GRF 2024-02-29 12:15:00 Joaquín [facility] [id number] - [place] CRTJ ARVEN FSTL XCP DIR JENNIFER FAGAN NONAUTOG GRF 2024-02-29 12:15:00 Joaquín [facility] ISTAT ACUTE CARE VENOUS 2024-02-29 12:14:00 Juan Manuel [facility] POCT GLUCOSE (AUTOMATED) 2024-02-29 11:59:00 Joaquín [facility] POCT GLUCOSE (AUTOMATED) 2024-02-29 11:59:00 Joaquín [facility] HB ABO GROUPING 2024-02-29 11:57:00 Joaquín [facility] HB ABO GROUPING 2024-02-29 11:57[facility]00 [facility] 2024-02-15 14:22:20 D octor Unassigned, [address] [facility] XR CHEST 1 2024-02-02 16:06:[address] [facility] XR CHEST 1 2024-02-02 16:06:[address] [facility] [place] TIME OR (NON-REPORTABLE) 2024-02-02 15:57:00 Michelle Moscoso [facility] [place] TIME OR (NON-REPORTABLE) 2024-02-02 15:57:00 Michelle Moscoso [facility] HB ABO GROUPING 2024-02-02 14:17:00 Jazmine kwong [facility] HB ABO GROUPING 2024-02-02 14:17:00 Jazmine kwong [facility] [id number] - [place] INSJ TUNNELED CVC W/O SUBQ PORT/CASTING TRUCKER AGE 5 YR/> 2024-02-02 14:13:00 Michelle Moscoso [facility] [id number] - CHG FLUORO CENTRAL VENOUS ACCESS DEV PLACEMENT 2024-02-02 14:13:00 Michelle Moscoso [facility] [id number] - CHG US VASC ACCESS SITS VSL PATENCY NDL ENTRY 2024-02-02 14:13:00 Michelle Moscoso [facility] ISTA ACUTE CARE VENOUS 2024-02-02 13:54:00 Michelle Moscoso [facility] 2024-02-02 13:54:00 Danis [facility] BASIC METABOLIC PANEL (NA, K, CL, CO2, GLUCOSE, BUN, CREATININE, CA) 2024-02-02 13:37:00 Michelle Moscoso [facility] BASIC METABOLIC PANEL (NA, K, CL, CO2, GLUCOSE, BUN, CREATININE, CA) 2024-02-02 13:37:00 Michelle Moscoso [facility] POCT GLUCOSE (AUTOMATED) 2024-02-02 13:34:[facility] 2024-02-02 13:34:00 [facility]- [facility]/RESPONSE 2023-12-28 16:28:26 D octor Unassigned, [address] [facility] REFERRAL- REQUEST/RESPONSE 2023-12-28 15:44:04 D octor Unassigned, [address] [facility] REFERRAL- REQUEST/RESPONSE 2023-12-25 21:29:06 D octor Unassigned, [address] [facility] REFERRAL- REQUEST/RESPONSE 2023-09-28 06:01:00 D octor Unassigned, [address] [facility] URINALYSIS 2023-09-16 01:26:00 Harry Thrasher [facility] XR CHEST 1 VW 2023-09-16 00:59:20 Harry Thrasher [facility] POCT GLUCOSE (AUTOMATED) 2023-09-16 00:52:00 Lauri Thrasher [facility] LACTIC ACID WHOLE BLOOD 2023-09-16 00:49:00 Traci Thrasher [facility] TROPONIN I 2023-09-16 00:48:00 Harry Thrasher [facility] COMP. METABOLIC PANEL ([id number]) 2023-09-16 00:48:00 Singer [facility] CBC WITH DIFF 2023-09-16 00:48:00 Singer [facility] RAPID INFLUENZA A/B 2023-09-16 00:48:00 Hiro Thrasher [facility] N-TERMINAL PRO-BNP 2023-09-16 00:48:00 Singer [facility] COVID-19 (ID NOW RAPID TESTING) 2023-09-16 00:48:00 Singer [facility] NOTICE OF PRIVACY PRACTICES 2023-09-16 00:05:57 Doctor Unassigned, [address] [facility] CONSENT/REFUSAL FOR DIAGNOSIS AND TREATMENT 2023-09-16 00:01:56 Doctor Unassigned, [address] [facility] CONSENT/REFUSAL FOR DIAGNOSIS AND TREATMENT 2022-10-22 20:18:01 Doctor Unassigned, [address] [facility] COMP. METABOLIC PANEL ([id number]) 2022-01-06 04:34:00 Brian [facility] CBC WITH DIFF 2022-01-06 04:34[facility]00 [facility] 2022-01-06 04:06:29 Doctor Unassigned, [address] [facility] CONSENT/REFUSAL FOR DIAGNOSIS AND TREATMENT 2022-01-06 04:05:18 Doctor Unassigned, [address] [facility] POCT HEMOGLOBIN A1C TEST 2021-04-09 15:17:00 Ghazala Mojica [facility] LIPID PANEL ([id number])(TOTAL CHOLESTEROL, TRIGLYCERIDES, HDL) 2021-03-04 15:29:00 Ton Galindo [facility] HCV ANTIBODY 2021-03-04 15:29:00 Ton Galindo [facility] [place] MODIFIED BARIUM SWALLOW 2018-01-15 15:43:00 Alan Paz [facility] Encounters Start Date/Time End Date/Time Encounter Type Admission Type Attending [facility] Care Facility Care Department Encounter ID Source 2024-01-22 15:12:39 Outpatient MICHELLE CARTY [facility] JESSICA [id number] [facility] 2022-11-17 14:49:01 Outpatient Esmer [facility]arrowh [facility] [id number] [facility] 2022-08-19 11:40:02 Outpatient Barrow, Yunier [facility] [id number] [facility] 2022-06-15 11:26:03 Outpatient BarrowEsmer nortonh [facility] [id number] [facility] 2022-03-02 15:11:02 Outpatient BarrowEsmer nortonh [facility] [id number] [facility] 2022-02-15 10:14:02 Outpatient [facility] [id number] [facility] 2022-01-04 10:07:04 Outpatient Rahul Jasmine [facility] [id number] [facility] 2021-07-11 11:01:51 Emergency [facility] [id number] [facility] 2021-07-09 22:11:41 Emergency [facility] [id number] [facility] 2025-06-13 14:50:00 2025-06-13 21:07:00 Emergency X BEHZADI, CLEO BEHZADI, CLEO [facility] ERT [id number] [facility] 2025-06-09 00:00:00 2025-06-11 15:22:10 Telephone Lisa Garcia [facility] 1.2.840.114 350.1.13.10 4.2.7.2.686 [id number] [facility] 2025-06-09 14:45:00 2025-06-09 15:39:38 [facility] 1..840.114 350.1.13.10 4.2.7.2.686 [id number] [facility] 2025-05-30 00:33:00 2025-05-30 02:35:00 Emergency X Oren King [facility] ERT [id number] [facility] 2025 16:30:00 2025 17:36:44 Office Visit Carson ConnerLisa barnes Jo [facility] 1..840.114 350.1.13.10 4.2.7.2.686 [id number] [facility] 2025-05-27 21:56:00 2025-05-27 22:01:00 Emergency X PAMELLA JOHNS WAKILI [facility] ERT [id number] [facility] 2025-05-15 00:00:00 2025-05-15 10:22:13 Transition of Care Radu Salguero Michele A [facility] 1..840.114 350.1.13.10 4.2.7.2.686 [id number] [facility] 2025-05-10 01:49:00 2025-05-14 16:05:00 Hospital Encounter X BRADLEY DRIVER [facility] MCA [id number] [facility] 2025-05-13 13:00:00 2025-05-13 16:30:00 Surgery Bethanie Giles [facility] 1..840.114 350.1.13.10 4.2.7.2.686 [id number] [facility] 2025-05-05 20:01:00 2025-05-05 23:56:00 Emergency X PAMELLA JOHNS WAKILI [facility] ERT [id number] [facility] 2025-05-05 19:59:59 2025-05-05 19:59:59 Outpatient R PAMELLA JOHNS WAKILI [facility] [id number] [facility] 2025-03-20 03:51:00 2025-03-20 06:27:00 Emergency X PAMELLA JOHNS WAKILI [facility] ERT [id number] [facility] 2025-03-19 00:00:00 2025-03-19 08:37:42 Telephone Frederick Sebastian [facility] 1..840.114 350.1.13.10 4.2.7.2.686 [id number] [facility] 2025-03-18 00:00:00 2025-03-18 11:27:34 Transition of Care Rosita Escobedo Kristi L [facility] 1..840.114 350.1.13.10 4.2.7.2.686 [id number] [facility] 2025-03-11 09:13:00 2025-03-14 13:41:00 Hospital Encounter X JOHN REAL [facility] LUCERO [id number] [facility] 2024-12-21 18:36:00 2024-12-21 22:23:00 Emergency X Fany CISNEROS K [facility] ERT [id number] [facility] 2024-12-21 18:36:00 2024-12-21 22:23:00 Emergency Fany Cisneros [facility] ..840.114 350.1.13.10 4.2.7.2.686 [id number] [facility] 2024-11-01 09:00:00 2024-11-01 09:00:00 Outpatient REENA SMART [facility] [id number] [facility] 2024-11-01 09:00:00 2024-11-01 09:00:00 Outpatient R REENA ASTORGA [facility] [id number] [facility] 2024-02-15 00:00:00 2024-10-26 07:34:49 Orders Only Doctor Unassigned, Wall Lane Doctor Unassigned, Wall Lane [facility] ([facility]ITT[facility]) 1.2.840.114 350.1.13.10 4.2.7.2.686 [id number] [facility] 2024-04-19 00:00:00 2024-10-26 07:10:00 Orders Only Doctor Unassigned, Wall Lane Doctor Unassigned, Wall Lane [facility] ([facility]) 1.2.840.114 350.1.13.10 4.2.7.2.686 [id number] [facility] 2018-01-15 00:00:00 2024-10-26 03:19:36 Orders Only Doctor Unassigned, Wall Lane Doctor Unassigned, Wall Lane [facility] ([facility]) 1.2.840.114 350.1.13.10 4.2.7.2.686 [id number] [facility] 2023-12-25 00:00:00 2024-10-26 02:20:22 Orders Only Doctor Unassigned, Wall Lane Doctor Unassigned, Wall Lane [facility] ([facility]) 1.2.840.114 350.1.13.10 4.2.7.2.686 [id number] [facility] 2023-12-28 00:00:00 2024-10-26 02:16:37 Orders Only Doctor Unassigned, Wall Lane Doctor Unassigned, Wall Lane [facility] ([facility]) 1.2.840.114 350.1.13.10 4.2.7.2.686 [id number] [id number] [facility] 2023-12-28 00:00:00 2024-10-26 02:16:36 Orders Only Doctor Unassigned, Wall Lane Doctor Unassigned, Wall Lane [facility] 1.2.840.114 350.1.13.10 4.2.7.2.686 [id number] [facility] 2024-10-19 00:00:00 2024-10-21 10:14:44 Nurse Triage Selene Ulloa 1.2.840.1 62045.1.1 3.104.2.7 .3.593893 .8 [id number] [facility] 2024-09-10 00:00:00 2024-09-10 10:21:18 Transition of Care NoemyRadu mora Thierry 1.2.840.1 86065.1.1 3.104.2.7 .3.024867 .8 [id number] [facility] 2024-09-07 18:44:00 2024-09-08 19:25:00 Outpatient X ED [facility] [id number] [facility] 2024-09-07 18:44:00 2024-09-08 19:25:00 Emergency StanHoney Carlos Adrian Yeh, Owen Li-Young 1.2.840.1 58497.1.1 3.104.2.7 .3.869681 .8 [id number] [facility] 2024-09-07 00:00:00 2024-09-07 00:00:00 Travel 1.2.840.1 20387.1.1 3.104.2.7 .3.186043 .8 1.2.840.114 350.1.13.10 4.2.7.3.698 [id number] [facility] 2024-07-15 14:15:00 2024-07-15 14:15:00 Outpatient JEREMIAH ROWE [facility] [id number] [facility] 2024-07-15 14:15:00 2024-07-15 14:15:00 [employer] Operator Visit JEREMIAH ROWE [facility] 1.2.840.114 350.1.13.10 4.2.7.2.686 [id number] [facility] 2024-07-15 13:42:00 2024-07-15 13:43:00 Emergency X STEVE GUERIN JULIO [facility] ERT [id number] [facility] 2024-07-15 13:42:00 2024-07-15 13:43:00 Emergency Steve Guerin [facility] 1.2.840.114 350.1.13.10 4.2.7.2.686 [id number] [facility] 2024-05-09 15:30:00 2024-05-09 15:30:00 Outpatient ANDREI MENDOZA [facility] [id number] [facility] 2024-05-09 15:30:00 2024-05-09 15:30:00 Office Visit ANDREI MENDOZA [facility] 1.2.840.114 350.1.13.10 4.2.7.2.686 [id number] [facility] 2024-04-25 13:45:00 2024-04-25 13:45:00 Outpatient ANDREI MENDOZA [facility] [id number] [facility] 2024-04-25 13:45:00 2024-04-25 13:45:00 Outpatient ANDREI MENDOZA [facility] [id number] [facility] 2024-04-03 03:36:00 2024-04-03 06:10:00 Emergency BERENICE BUNCH SANDRA [facility] ERT [id number] [facility] 2024-04-03 03:36:00 2024-04-03 06:10:00 Emergency Berenice Asher [facility] 1.2.840.114 350.1.13.10 4.2.7.2.686 [id number] [facility] 2024-03-28 15:30:00 2024-03-28 16:06:24 Outpatient ANDREI MENDOZA [facility] [id number] [facility] 2024-03-28 15:30:00 2024-03-28 16:06:24 Office Visit Carson YANES [facility] 1.2.840.114 350.1.13.10 4.2.7.2.686 [id number] [facility] 2024-03-01 00:00:00 2024-03-01 13:57:18 Telephone Joaquín [facility] 1.2.840.114 350.1.13.10 4.2.7.2.686 [id number] [facility] 2024-02-29 06:38:00 2024-02-29 09:55:00 Outpatient Carson YANES ANDREI [facility] [id number] [facility] 2024-02-29 06:38:00 2024-02-29 09:55:00 Hospital Encounter Joaquín [facility] SURGICAL COSBY 1.2.840.114 350.1.13.10 4.2.7.2.686 [id number] [facility] 2024-02-29 07:10:00 2024-02-29 09:50:00 Surgery Joaquín [facility] SURGICAL COSBY 1.2.840.114 350.1.13.10 4.2.7.2.686 [id number] [facility] 2024-02-29 07:20:00 2024-02-29 09:12:00 Anesthesia Event Natacha, Patrick Clark [facility] 1.2.840.114 350.1.13.10 4.2.7.2.686 [id number] [facility] 2024-02-23 00:00:00 2024-02-23 09:09:23 Telephone [employer], Geovanna N [facility] 1.2.840.114 350.1.13.10 4.2.7.2.686 [id number] [facility] 2024-02-22 00:00:00 2024-02-22 13:15:19 Letter (Out) Estiven Haas [facility] 1.2840.114 350.1.13.10 4.2.7.2.686 [id number] [facility] 2024-02-21 00:00:00 2024-02-21 11:17:43 Telephone [employer], Geovanna [facility] 1.2.840.114 350.1.13.10 4.2.7.2.686 [id number] [facility] 2024-02-20 15:00:00 2024-02-20 23:59:00 Outpatient GALLO CARTAGENA [facility] [id number] [facility] 2024-02-20 14:57:56 2024-02-20 23:59:00 Hospital Encounter Gallo Smith [facility] 1.2840.114 350.1.13.10 4.2.7.2.686 [id number] [facility] 2024-02-15 13:45:00 2024-02-15 14:02:57 Outpatient ANDREI MENDOZA [facility] [id number] [facility] 2024-02-15 13:45:00 2024-02-15 14:02:57 Office Visit Andrei Yanes [facility] SPECIAL[facility] 1.2.840.114 350.1.13.10 4.2.7.2.686 [id number] [facility] 2024-02-15 08:15:00 2024-02-15 08:30:00 Office Visit [facility] 1.2.840.114 350.1.13.10 4.2.7.2.686 [id number] [facility] 2024-02-06 00:00:00 2024-02-07 09:59:25 Telephone Michelle Moscoso [facility] 1.2.840.114 350.1.13.10 4.2.7.2.686 [id number] [facility] 2024-02-03 18:51:00 2024-02-03 19:29:00 Emergency X ROVERTO, [facility] ROVERTO, [facility] ERT [id number] [facility] 2024-02-03 18:51:00 2024-02-03 19:29:00 Emergency Roverto, [facility] 1.2.840.114 350.1.13.10 4.2.7.2.686 [id number] [facility] 2024-02-02 16:15:00 2024-02-02 16:30:00 [employer] Operator Visit 2, [facility] Jeremiah Crawford [facility] BUILD[facility] 1.2.840.114 350.1.13.10 4.2.7.2.686 [id number] [facility] 2024-02-02 16:15:00 2024-02-02 16:15:00 Outpatient R JEREMIAH CRAWFORD [facility] [id number] [facility] 2024-02-02 08:09:00 2024-02-02 13:45:00 Outpatient R MICHELLE MOSCOSO [facility] JESSICA [id number] [facility] 2024-02-02 08:09:00 2024-02-02 13:45:00 Hospital Encounter Michelle Moscoso [facility] 1.2.840.114 350.1.13.10 4.2.7.2.686 [id number] [facility] 2024-02-02 09:30:00 2024-02-02 11:17:00 Surgery Michelle Moscoso [facility] 1.2.840.114 350.1.13.10 4.2.7.2.686 [id number] [facility] 2024-01-31 00:00:00 2024-02-01 09:45:12 Telephone Michelle Moscoso [facility] PROF[facility] NAL BUILDING 1.2.840.114 350.1.13.10 4.2.7.2.686 [id number] [facility] 2024-01-31 00:00:00 2024-01-31 14:35:51 Letter (Out) Doctor Unassigned, Wall [address] [facility] 1.2.840.114 350.1.13.10 4.2.7.2.686 [id number] [facility] 2024-01-31 14:00:00 2024-01-31 14:00:00 Outpatient R GALLO SMITH [facility] [id number] [facility] 2024-01-30 00:00:00 2024-01-30 11:54:48 Telephone Michelle Moscoso [facility] NAL BUILDING 1.2.840.114 350.1.13.10 4.2.7.2.686 [id number] [facility] 2024-01-29 00:00:00 2024-01-29 12:00:59 Telephone Michelle Moscoso [facility] 1.2.840.114 350.1.13.10 4.2.7.2.686 [id number] [facility] 2024-01-29 00:00:00 2024-01-29 11:55:21 Telephone Michelle Moscoso [facility] 1.2.840.114 350.1.13.10 4.2.7.2.686 [id number] [facility] 2024-01-22 13:00:00 2024-01-22 13:53:13 Outpatient Carson MICHELLE MOSCOSO [facility] [id number] [facility] 2024-01-22 13:00:00 2024-01-22 13:53:13 Office Visit Michelle Moscoso [facility] 1.2840.114 350.1.13.10 4.2.7.2.686 [id number] [facility] 2024-01-10 11:00:00 2024-01-10 11:00:00 Outpatient GALLO CARTAGENA [facility] [id number] [facility] 2024-01-01 14:00:00 2024-01-01 14:00:00 Outpatient Carson MOSCOSOMICHELLE [facility] [id number] [facility] 2023-12-28 09:00:00 2023-12-28 09:49:00 [facility] [id number] [facility] 2023-12-28 09:00:00 2023-12-28 09:49:00 Office Visit Gallo [facility] 1.840.114 350.1.13.10 4.2.7.2.686 [id number] [facility] 2023-12-28 00:00:00 2023-12-28 00:00:00 Telephone Gallo Smith [facility] 1..114 350.1.13.10 4.2.7.2.686 [id number] [facility] 2023-10-19 10:00:00 2023-10-19 10:00:00 Outpatient ANDREI MENDOZA [facility] [id number] [facility] 2023-10-13 09:30:00 2023-10-13 09:30:00 Outpatient AIMEE PEREZ [facility] [id number] [facility] 2023-10-10 00:00:00 2023-10-10 00:00:00 Telephone Aimee Yuan [facility] 1..114 350.1.13.10 4.2.7.2.686 [id number] [facility] 2023-10-03 17:30:00 2023-10-03 18:00:00 BOAZ Visit Follow Up [IHC/OD Only] Deanne Gibbons 2..840. 1.090905. 4.6.66655 [id number] 2..840.1. 072646.4.6. [id number] [address] [place] [address] 2023-09-28 00:00:00 2023-09-28 00:00:00 Orders Only Doctor Unassigned, Wall [address] [facility] 1.840.114 350.1.13.10 4.2.7.2.686 [id number] [facility] 2023-09-18 18:00:00 2023-09-18 19:00:00 BOAZ Visit Deanne Gibbons 2.840. 1.342753. 4.6.57682 [id number] 2.840.1. 307932.4.6. [id number] [facility] [place] 2023-09-15 18:25:00 2023-09-15 23:21:00 Emergency X HARRY THRASHER [facility] ERT [id number] [facility] 2023-09-15 18:25:00 2023-09-15 23:21:00 Emergency Harry Thrasher Chip Talavera [facility] 1.0.114 350.1.13.10 4.2.7.2.686 [id number] [facility] 2023-03-01 19:00:00 2023-03-01 20:00:00 CAV [place] Mary 2.16.840. 1.338396. 4.6.90439 [id number] 2.16.840.1. 316713.4.6. [id number] U92 [facility] [place] 2022-11-21 00:00:00 2022-11-21 00:00:00 (TEL) STLMLC STLMLC [id number] [facility] 2022-10-24 00:00:00 2022-10-24 00:00:00 (TEL) STLMLC STLMLC [id number] [facility] 2022-10-22 14:26:00 2022-10-22 14:48:00 Emergency X BERENICE ASHER [facility] ERT [id number] [facility] 2022-10-22 14:26:00 2022-10-22 14:48:00 Emergency Berenice Asher [facility] 1.114 350.1.13.10 4.2.7.2.686 [id number] [facility] 2022-10-21 00:00:00 2022-10-21 00:00:00 Ghazala Hinson [facility] 1.84.114 350.1.13.10 4.2.7.2.686 [id number] [facility] 2022-08-22 00:00:00 2022-08-22 00:00:00 (TEL) STLMLC STLMLC [id number] [facility] 2022-06-16 00:00:00 2022-06-16 00:00:00 OFFICE VISIT ESTAB PT LEVEL [id number] [facility] 2022-04-07 00:00:00 2022-04-07 00:00:00 (TEL) STLMLC STLMLC [id number] [facility] 2022-04-04 00:00:00 2022-04-04 00:00:00 OFFICE VISIT ESTAB PT LEVEL [id number] [facility] 2022-04-04 00:00:00 2022-04-04 00:00:00 (TEL) STLMLC STLMLC [id number] [facility] 2022-04-04 00:00:00 2022-04-04 00:00:00 SUB ANNUAL [facility] WELLNESS VISIT STLMLC STLMLC [id number] [facility] 2022-03-30 00:00:00 2022-03-30 00:00:00 (TEL) STLMLC STLMLC [id number] [facility] 2022-03-28 00:00:00 2022-03-28 00:00:00 (TEL) STLMLC STLMLC [id number] [facility] 2022-03-04 00:00:00 2022-03-04 00:00:00 (TEL) STLMLC STLMLC [id number] [facility] 2022-03-02 00:00:00 2022-03-02 00:00:00 OFFICE VISIT ESTAB PT LEVEL [id number] [facility] 2022-02-16 00:00:00 2022-02-16 00:00:00 PREV VISIT EST AGE 40-64 STLMLC STLMLC [id number] [facility] 2022-01-25 00:00:00 2022-01-25 00:00:00 (TEL) STLMLC STLMLC [id number] [facility] 2022-01-19 18:00:00 2022-01-19 19:00:00 RONEL Corado 2.16.840. 1.786503. 4.6.49890 [id number] 2.16.840.1. 046762.4.6. [id number] [facility] [place] 2022-01-05 23:20:00 2022-01-05 23:57:00 Emergency X DAVIDSON TORRES [facility] ERT [id number] [facility] 2022-01-05 23:20:00 2022-01-05 23:57:00 Emergency Davidson Torres [facility] .2.840.114 350.1.13.10 4.2.7.2.686 [id number] [facility] 2022-01-04 00:00:00 2022-01-04 00:00:00 OFFICE VISIT NEW PT LEVEL [id number] [facility] 2021-12-04 00:00:00 2021-12-04 00:00:00 Refill Ghazala Akhtar [facility] 1.2.840.114 350.1.13.10 4.2.7.2.686 [id number] [facility] 2021-11-30 08:40:00 2021-11-30 08:40:00 Outpatient GHAZALA SWIFT [facility] [id number] [facility] 2021-11-30 08:40:00 2021-11-30 08:40:00 Outpatient GHAZALA SWIFT [facility] [id number] [facility] 2021-09-14 00:00:00 2021-09-14 00:00:00 [facility] 1.2.840.114 350.1.13.10 4.2.7.2.686 [id number] [facility] 2021-09-08 00:00:00 2021-09-08 00:00:00 Telephone Ghazala Akhtar [facility] 1.2.840.114 350.1.13.10 4.2.7.2.686 [id number] [facility] 2021-08-18 13:40:00 2021-08-18 13:40:00 Outpatient REENA SMART [facility] [id number] [facility] 2021-08-18 13:40:00 2021-08-18 13:40:00 Outpatient REENA SMART [facility] [id number] [facility] 2021-08-02 11:05:37 2021-08-02 12:30:39 Office Visit Ghazala Akhtar [facility] 1.2.840.114 350.1.13.10 4.2.7.2.686 [id number] [facility] 2021-08-02 11:00:00 2021-08-02 12:30:39 Outpatient R GHAZALA AKHTAR [facility] [id number] [facility] 2021-07-22 00:00:00 2021-07-22 00:00:00 Refill Ghazala Akhtar [facility] 1.2.840.114 350.1.13.10 4.2.7.2.686 [id number] [facility] 2021-07-13 00:00:00 2021-07-13 00:00:00 Telephone Ghazala Akhtar [facility] 1.2.840.114 350.1.13.10 4.2.7.2.686 [id number] [facility] 2021-07-11 00:00:00 2021-07-11 00:00:00 Refill Ghazala Akhtar [facility] 1.2.840.114 350.1.13.10 4.2.7.2.686 [id number] [facility] 2021-07-07 16:24:40 2021-07-07 16:39:51 Urgent Care [facility], Critical access hospitale?[facility] 1.2.84.114 350.1.13.10 4.2.7.2.686 [id number] [facility] 2021-07-07 16:20:00 2021-07-07 16:20:00 Outpatient FORTUNATO SAMUELS [facility] [id number] [facility] 2021-07-07 00:00:00 2021-07-07 00:00:00 Refill Ghazala Akhtar [facility] 1.2.840.114 350.1.13.10 4.2.7.2.686 [id number] [facility] 2021-07-02 00:00:00 2021-07-02 00:00:00 Telephone Ghazala Akhtar [facility] 1.2.840.114 350.1.13.10 4.2.7.2.686 [id number] [facility] 2021-06-28 00:00:00 2021-06-28 00:00:00 Telephone Ghazala Akhtar [facility] 1.2.840.114 350.1.13.10 4.2.7.2.686 [id number] [facility] 2021-06-25 00:00:00 2021-06-25 00:00:00 Telephone AkhtarTata carlzabepaula Guadarrama [facility] 1.2.840.114 350.1.13.10 4.2.7.2.686 [id number] [facility] 2021-06-09 14:20:00 2021-06-09 14:20:00 Outpatient R RUSLAN POSADAS [facility] [id number] [facility] 2021-06-03 19:30:00 2021-06-03 19:30:00 Outpatient R WILLIAM HERMAN STRAPAJonh [facility] [id number] [facility] 2021-06-01 15:30:00 2021-06-01 15:30:00 Outpatient R [facility] [id number] [facility] 2021-05-06 10:57:09 2021-05-06 13:00:43 Office Visit AkhtarGhazala carl Thierry [facility] 1.2.840.114 350.1.13.10 4.2.7.2.686 [id number] [facility] 2021-05-06 10:40:00 2021-05-06 10:40:00 Outpatient R GHAZALA AKHTAR [facility] [id number] [facility] 2021-04-20 15:00:00 2021-04-20 15:00:00 Outpatient R BENNETT POOLE [facility] [id number] [facility] 2021-04-09 08:20:00 2021-04-09 08:20:00 Outpatient R GHAZALA AKHTAR [facility] [id number] [facility] 2021-03-15 15:40:00 2021-03-15 15:40:00 Outpatient R BENNETT POOLE [facility] [id number] [facility] [facility] 2021-03-12 19:30:00 2021-03-12 19:30:00 Outpatient R [facility] [id number] [facility] 2021-03-04 09:00:00 2021-03-04 09:00:00 Outpatient R TON GALINDO [facility] [id number] [facility] 2020-12-06 11:40:00 2020-12-06 11:40:00 Outpatient [facility] [id number] [facility] 2020-11-08 11:05:00 2020-11-08 11:05:00 Outpatient SHELBY MAI [facility] [id number] [facility] Results Test Description Test Time Test Comments Results Result Comments Source Cardiovascular Catheterization 2025-05 15:39:2 3 Table formatting from the original result was not included. Left Heart Cath/Coronary Angiography/Percutaneous Coronary Intervention Jeevan Ordaz Jr. Date of Service: 05/13/2025 ?4:11 PM Attending Physician: Bethanie Giles MDFellow: Dr Short Physician: No ref. provider found Procedures Performed:Right femoral artery accessLeft heart catheterizationCoronary angiogramPCI of haigler Indication/Diagnosis: heart failure, chest pain Consent: Risks, benefits, alternatives and complications of the procedure discussed with the patient, who understood and agreed to proceed. Aseptic technique: Chlorprep Local Anesthesia: 1% lidocaine without epinephrine Sedation: Moderate Access site: right femoral artery Closure Method: Perclose Sterile dressing: yes Complications: none Procedures: After patient identification/verificatio n, the patient was thereafter transferred to the cathode ray tube salvage processor table. ?The access site was prepped and draped in usual sterile fashion. After administering sedation, time out was done. Under ultrasound guidance, using modified Seldinger technique, the right femoral artery was accessed using a micropuncture kit. The access was upgraded to a 6 Fr sheath. A 6 Fr JL 4.0 catheter was then used to cannulate the LM. Selective coronary angiography was done using several views. A 6 Fr JR 4 was used to cross the AV with the J wire and the catheter was advanced into the LV where selective LVEDP was measured, the catheter was then used to selectively engage the RCA and perform diagnostic angiography. Based on the diagnostic angiography, a decision was made to intervene on the diagonal branch and a EBU 3.5 guide catheter was advanced for intervention. IV heparin was administered to maintain the ACT >300s for the intervention. The attending physician was present throughout the procedure and provided the highest level of supervision. Findings: Coronary dominance: right Left main: Luminal irregularities LAD: Large caliber vessel. Gives off a large diagonal branch in the proximal segment. Entire vessel is diffusely disease with moderate atherosclerosis. ?D1: Large caliber vessel, mid segment demonstrates 70-80% stenosis s/p IVUS guided PTCA/PCI with 2.0 x 16 gemma KATHIE post dilated with 2.75 mm NC. ? D2: Medium caliber vessel, demonstrates mild diffuse disease ? D3: small to medium caliber vessel, demonstrates 40-50% stenosis in the proximal segment LCX: Moderate to large caliber non-dominant vessel. Proximally demonstrates mild disease. Distally it is 100% occluded with left to left collaterals. ?OM1: Moderate caliber vessel with mild disease ?OM2: Small to medium caliber vessel with mild disease RCA: Large caliber dominant vessel, there is moderate diffuse calcification. Proximal segment appeared hazy and hence we decided to IVUS. On IVUS, there is calcific plaque burden in the proximal segment without significant stenosis. ?PDA: Small to medium caliber vessel with mild disease ?PLB: Small to medium caliber vessel with mild disease LVEDP: 18 mmHg Intervention details: Lesion #1: Mid diagonalLesion type: Type AGuide catheter: EBU 3.5Guide wire: RunthroughStentin.0 x 20 mm Medtronic gemma DESPost-dilation: 2.25 mm followed by 2.5 mm and 2.75 mm NC balloon0% residual stenosis with KIMBERLY 3 flow IVUS/OCT: ? Pre: Fibrocalcific plaque with severe plaque burden ?Post: Excellent stent expansion and apposition Post-Procedure Sedation AddendumImmediately prior to start of sedation, the patient was evaluated and there was no change from the pre-procedure evaluation. I was present and directed medical care.The patient underwent moderate sedation ?for the procedure. The medications administered were recorded in the MAR; oxygenation, ventilation and circulation were monitored continuously and were recorded in the EMR. I evaluated the patient after the procedure.The patient was evaluated immediately as recovering from sedation. Complications: none Impression:Successful PTCA/PCI large diagonal branchModerate diffuse disease in LAD, PLASTER DIE MAKER of circumflex in the distal segment with left to left collaterals3. ?LVEDP: 18 mmhg Plan:Received 600mg Plavix in the lab, continue ASA, Plavix uninterrupted for atleast 12 monthsContinue optimization of medical therapyAggressive risk factor modificationClose cardiology follow up Chris Hamilton MD 05/13/2025 4:11 PM ? Cosigned by: Bethanie Giles MD at 05/13/2025 ?8:53 PM Procedure DetailsLeft Heart Cath/Coronary Angiography/Percutaneous Coronary Intervention Jeevan Kennyashley Llanos Date of Service: 05/13/2025 4:11 PM Attending Physician: Bethanie Giles MDFellow: Dr HamiltonReferring Physician: No ref. provider found Procedures Performed:Right femoral artery accessLeft heart catheterizationCoronary angiogramPCI of haigler Indication/Diagnosis: heart failure, chest pain Consent: Risks, benefits, alternatives and complications of the procedure discussed with the patient, who understood and agreed to proceed. Aseptic technique: Chlorprep Local Anesthesia: 1% lidocaine without epinephrine Sedation: Moderate Access site: right femoral artery Closure Method: Perclose Sterile dressing: yes Complications: none Procedures: After patient identification/verificatio n, the patient was thereafter transferred to the cathode ray tube salvage processor table. The access site was prepped and draped in usual sterile fashion. After administering sedation, time out was done. Under ultrasound guidance, using modified Seldinger technique, the right femoral artery was accessed using a micropuncture kit. The access was upgraded to a 6 Fr sheath. A 6 Fr JL 4.0 catheter was then used to cannulate the LM. Selective coronary angiography was done using several views. A 6 Fr JR 4 was used to cross the AV with the J wire and the catheter was advanced into the LV where selective LVEDP was measured, the catheter was then used to selectively engage the RCA and perform diagnostic angiography. Based on the diagnostic angiography, a decision was made to intervene on the diagonal branch and a EBU 3.5 guide catheter was advanced for intervention. IV heparin was administered to maintain the ACT >300s for the intervention. The attending physician was present throughout the procedure and provided the highest level of supervision. Findings: Coronary dominance: right Left main: Luminal irregularities LAD: Large caliber vessel. Gives off a large diagonal branch in the proximal segment. Entire vessel is diffusely disease with moderate atherosclerosis. D1: Large caliber vessel, mid segment demonstrates 70-80% stenosis s/p IVUS guided PTCA/PCI with 2.0 x 16 gemma KATHIE post dilated with 2.75 mm NC. D2: Medium caliber vessel, demonstrates mild diffuse disease D3: small to medium caliber vessel, demonstrates 40-50% stenosis in the proximal segment LCX: Moderate to large caliber non-dominant vessel. Proximally demonstrates mild disease. Distally it is 100% occluded with left to left collaterals. OM1: Moderate caliber vessel with mild disease OM2: Small to medium caliber vessel with mild disease RCA: Large caliber dominant vessel, there is moderate diffuse calcification. Proximal segment appeared hazy and hence we decided to IVUS. On IVUS, there is calcific plaque burden in the proximal segment without significant stenosis. PDA: Small to medium caliber vessel with mild disease PLB: Small to medium caliber vessel with mild disease LVEDP: 18 mmHg Intervention details: Lesion #1: Mid diagonalLesion type: Type AGuide catheter: EBU 3.5Guide wire: RunthroughStentin.0 x 20 mm Medtronic gemma DESPost-dilation: 2.25 mm followed by 2.5 mm and 2.75 mm NC balloon0% residual stenosis with KIMBERLY 3 flow IVUS/OCT: Pre: Fibrocalcific plaque with severe plaque burden Post: Excellent stent expansion and apposition Post-Procedure Sedation AddendumImmediately prior to start of sedation, the patient was evaluated and there was no change from the pre-procedure evaluation. I was present and directed medical care.The patient underwent moderate sedation for the procedure. The medications administered were recorded in the MAR; oxygenation, ventilation and circulation were monitored continuously and were recorded in the EMR. I evaluated the patient after the procedure.The patient was evaluated immediately as recovering from sedation. Complications: none Impression:1. Successful PTCA/PCI large diagonal branch2. Moderate diffuse disease in LAD, PLASTER DIE MAKER of circumflex in the distal segment with left to left collaterals3. LVEDP: 18 mmhg Plan:1. Received 600mg Plavix in the lab, continue ASA, Plavix uninterrupted for atleast 12 months2. Continue optimization of medical therapy3. Aggressive risk factor modification4. Close cardiology follow up Chris Hamilton MD 05/13/2025 4:11 PM Cosigned by: Bethanie Giels MD at 05/13/2025 8:53 PM [facility] XR Forearm 2 vw right 2025-05 06:51:4 7 Ordering physician: OREN KING INDICATION: Right hand, wrist and forearm pain, status post fall COMPARISON: None FINDINGS: AP and lateral views of the right forearm, 3 views of the rightwrist and 3 views of the right hand. There is a well-corticated densityadjacent to the olecranon. There is a minimally displaced intra-articularfracture of the right distal radius. No acute fracture or dislocation isappreciated in the right hand. There is diffuse calcific plaque in thearterial structures. [facility] XR Hand 3+ vw right 2025-05 06:51:4 7 Ordering physician: OREN KING INDICATION: Right hand, wrist and forearm pain, status post fall COMPARISON: None FINDINGS: AP and lateral views of the right forearm, 3 views of the rightwrist and 3 views of the right hand. There is a well-corticated densityadjacent to the olecranon. There is a minimally displaced intra-articularfracture of the right distal radius. No acute fracture or dislocation isappreciated in the right hand. There is diffuse calcific plaque in thearterial structures. [facility] XR Wrist 3+ vw right 2025-05 06:51:4 7 Ordering physician: OREN KING INDICATION: Right hand, wrist and forearm pain, status post fall COMPARISON: None FINDINGS: AP and lateral views of the right forearm, 3 views of the rightwrist and 3 views of the right hand. There is a well-corticated densityadjacent to the olecranon. There is a minimally displaced intra-articularfracture of the right distal radius. No acute fracture or dislocation isappreciated in the right hand. There is diffuse calcific plaque in thearterial structures. [facility] ACT Low [id number] 12:10:45* Test Item Value Reference Range Interpretation Comme nts ACTLR (test code = 5945994899) 323 89-169 H Lab Interpretation (test cod e = 86898-6) Abnormal [facility] GLUCOSE (AUTOMATED)2025-05-14 18:49:00* Test Item Value Reference Range Interpretation Comme nts POCT GLU (test code = 4751581513) 140 mg/dL 70-110 H Lab Interpretation (test cod e = 14994-3) Abnormal [facility] GLUCOSE (AUTOMATED)2025-05-14 18:49:00* Test Item Value Reference Range Interpretation Comme nts POCT GLU (test code = 6449208387) 140 mg/dL 70-110 H Lab Interpretation (test cod e = 28291-6) Abnormal [facility] GLUCOSE (AUTOMATED)2025-05-14 15:58:57* Test Item Value Reference Range Interpretation Comme nts POCT GLU (test code = 4915300904) 222 mg/dL 70-110 H Lab Interpretation (test cod e = 91055-1) Abnormal [facility] GLUCOSE (AUTOMATED)2025-05-14 15:58:57* Test Item Value Reference Range Interpretation Comme nts POCT GLU (test code = 0555497159) 222 mg/dL 70-110 H Lab Interpretation (test cod e = 22331-2) Abnormal [facility] GLUCOSE (AUTOMATED)2025-05-14 01:46:27* Test Item Value Reference Range Interpretation Comme nts POCT GLU (test code = 0135359803) 214 mg/dL 70-110 H Lab Interpretation (test cod e = 97407-0) Abnormal [facility] GLUCOSE (AUTOMATED)2025-05-14 01:46:27* Test Item Value Reference Range Interpretation Comme nts POCT GLU (test code = 9152426683) 214 mg/dL 70-110 H Lab Interpretation (test cod e = 69112-5) Abnormal [facility] GLUCOSE (AUTOMATED)2025-05-13 22:37:50* Test Item Value Reference Range Interpretation Comme nts POCT GLU (test code = 9218781978) 115 mg/dL 70-110 H Lab Interpretation (test cod e = 81170-4) Abnormal [facility] GLUCOSE (AUTOMATED)2025-05-13 22:37:50* Test Item Value Reference Range Interpretation Comme nts POCT GLU (test code = 2305273196) 115 mg/dL 70-110 H Lab Interpretation (test cod e = 01037-6) [facility] PROCEDURE [id number] 21:24:29Ordered by an unspecified provider.[facility] GLUCOSE (AUTOMATED)2025-05-13 12:42:53* Test Item Value Reference Range Interpretation Comme nts POCT GLU (test code = 6752271553) 166 mg/dL 70-110 H Lab Interpretation (test cod e = 65421-7) Abnormal [facility] GLUCOSE (AUTOMATED)2025-05-13 12:42:53* Test Item Value Reference Range Interpretation Comme nts POCT GLU (test code = 0151191472) 166 mg/dL 70-110 H Lab Interpretation (test cod e = 56742-1) Abnormal [facility] GLUCOSE (AUTOMATED)2025-05-13 11:20:47* Test Item Value Reference Range Interpretation Comme nts POCT GLU (test code = 9240880931) 120 mg/dL 70-110 H Lab Interpretation (test cod e = 25319-0) Abnormal [facility] GLUCOSE (AUTOMATED)2025-05-13 11:20:47* Test Item Value Reference Range Interpretation Comme nts POCT GLU (test code = 4437349989) 120 mg/dL 70-110 H Lab Interpretation (test cod e = 90253-0) Abnormal [facility] GLUCOSE (AUTOMATED)2025-05-13 01:24:15* Test Item Value Reference Range Interpretation Comme nts POCT GLU (test code = 0718759597) 170 mg/dL 70-110 H Lab Interpretation (test cod e = 53166-3) Abnormal [facility] GLUCOSE (AUTOMATED)2025-05-13 01:24:15* Test Item Value Reference Range Interpretation Comme nts POCT GLU (test code = 1762408549) 170 mg/dL 70-110 H Lab Interpretation (test cod e = 52113-2) Abnormal [facility] GLUCOSE (AUTOMATED)2025-05-12 19:19:38* Test Item Value Reference Range Interpretation Comme nts POCT GLU (test code = 5540484031) 123 mg/dL 70-110 H Lab Interpretation (test cod e = 92588-3) Abnormal [facility] GLUCOSE (AUTOMATED)2025-05-12 19:19:38* Test Item Value Reference Range Interpretation Comme nts POCT GLU (test code = 3221258536) 123 mg/dL 70-110 H Lab Interpretation (test cod e = 22959-7) Abnormal [facility] GLUCOSE (AUTOMATED)2025-05-12 17:24:45* Test Item Value Reference Range Interpretation Comme nts POCT GLU (test code = 5198909927) 186 mg/dL 70-110 H Lab Interpretation (test cod e = 18287-1) Abnormal [facility] GLUCOSE (AUTOMATED)2025-05-12 17:24:45* Test Item Value Reference Range Interpretation Comme nts POCT GLU (test code = 1713931537) 186 mg/dL 70-110 H Lab Interpretation (test cod e = 63671-1) [facility]:17:[facility]* Test Item Value Reference Range Interpretation Comme nts PHOSPHORUS (test code = 1611295221) 4.8 mg/dL 2.5-5.0 Lab Interpretation (test cod e = 71204-1) [facility]25-[facility] 05:17:26* Test Item Value Reference Range Interpretation Comme nts PHOSPHORUS (test code = 4534069010) 4.8 mg/dL 2.5-5.0 Lab Interpretation (test cod e = 52788-1) Normal [facility] ([facility])(Total Cholesterol, Triglycerides, HDL)2025-05-12 05:15:21* Test Item Value Reference Range Interpretation Comme nts CHOL (test code = 0026537700) 97 mg/dL 120-200 L HDL (test code = 9326427601) 25 mg/dL >=40 L HDLC RATIO (test code = 4584001353) 3.9 <=5.0 TRIG (test code = 4507494692) 72 mg/dL 30-170 LDL CHOL (test code = 67533-3) 58 mg/dL <=160 VLDL (test code = 9505380634) 14 mg/dL 5-60 Lab Interpretation (test cod e = 73669-8) [facility]normal [facility] ([facility])(Total Cholesterol, Triglycerides, HDL)2025-05-12 05:15:21* Test Item Value Reference Range Interpretation Comme nts CHOL (test code = 2910010777) 97 mg/dL 120-200 L HDL (test code = 5170242349) 25 mg/dL >=40 L HDLC RATIO (test code = 3246825442) 3.9 <=5.0 TRIG (test code = 9489880538) 72 mg/dL 30-170 LDL CHOL (test code = 06560-5) 58 mg/dL <=160 VLDL (test code = 0250310059) 14 mg/dL 5-60 Lab Interpretation (test cod e = 56062-6) Abnormal [facility] GLUCOSE (AUTOMATED)2025-05-12 00:55:14* Test Item Value Reference Range Interpretation Comme nts POCT GLU (test code = 8372168477) 198 mg/dL 70-110 H Lab Interpretation (test cod e = 89152-9) Abnormal [facility] GLUCOSE (AUTOMATED)2025-05-12 00:55:14* Test Item Value Reference Range Interpretation Comme nts POCT GLU (test code = 3137136067) 198 mg/dL 70-110 H Lab Interpretation (test cod e = 19299-8) Abnormal [facility] GLUCOSE (AUTOMATED)2025-05-11 21:46:41* Test Item Value Reference Range Interpretation Comme nts POCT GLU (test code = 3360041944) 143 mg/dL 70-110 H Lab Interpretation (test cod e = 40438-1) Abnormal [facility] GLUCOSE (AUTOMATED)2025-05-11 21:46:41* Test Item Value Reference Range Interpretation Comme nts POCT GLU (test code = 0202789608) 143 mg/dL 70-110 H Lab Interpretation (test cod e = 34535-5) [facility]normal [facility]2025-05-11 20:29:26* Test Item Value Reference Range Interpretation Comme nts Height (test code = 4548595186) 68 in Weight (test code = 9467636360) 182 lbs Systolic BP (test code = 2761503502) 138 mmHg Diastolic BP (test code = 4176085799) 92 mmHg Heart Rate (test code = 5344873013) 71 bpm BSA (test code = 9251388492) 1.98 m2 LVOT diameter (test code = 9702383143) 2.01 cm LVOT area (test code = 2868806009) 3.2 cm2 Ao root diam (test code = 5278006400) 3.2 cm Aortic root (test code = 0762257374) 3.2 cm Ao root annulus (test code = 5994026500) 3.2 cm LA size (test code = 5514327876) 4.7 cm LVIDD (test code = 8516576535) 5.4 cm Left Ventricular End Diastolic Volume by Teichholz Method (test code = 4364794) 139.7 mL IVS (test code = 1248324812) 1.09 cm Interventricular Septum Diastolic Thickness by 2D (test code = 9716521) 1.09 cm LVPWD (test code = 0963771974) 1.11 cm LV RWT (test code = 5475548875) 0.41 LV mass (test code = 0259626080) 234.82 g LV Mass Index (test code = 5428811927) 118.6 g/m2 PW (test code = 6059190114) 1.11 cm 0.6-1.1 EF(Teich) (test code = 0612549106) 14.7 % LVIDS (test code = 2274732402) 5 cm Left Ventricular End Systolic Volume by Teichholz Method (test code = 4180693) 119.1 mL FS (test code = 6232606981) 7 % EF - 2D (test code = 29215258) 14.7 % TR Peak Leonel (test code = 7172885067) 271.5 cm/s Triscuspid Valve Regurgitation Peak Gradient (test code = 0942873752) 29.6 mmHg Pulmonic Regurgitant End Max Velocity (test code = 3946568925) 129.9 cm/s LAV(MOD-sp4) (test code = 8304273339) 88.5 mL E wave decelartion time (test code = 5153859605) 0.17 s MV stenosis pressure 1/2 time (test code = 8872315579) 51.2 ms MV Peak A Leonel (test code = 6944422470) 90.1 cm/s MV Peak E Leonel (test code = 7772230095) 130 cm/s E/A ratio (test code = 8631365422) 1.44 ratio MR max PG (test code = 5058278063) 66.2 mm[Hg] MR max leonel (test code = 4669261403) 406.6 cm/s Mr max leonel (test code = 2766855039) 406.6 m/s MV Prop V (test code = 0955892088) 41.3 cm/s MV E/e' septal (test code = 0731728601) 9.2 cm/s LVOT stroke volume (test code = 6747510799) 58.2 cm3 LVOT peak leonel (test code = 0320403851) 83.8 cm/s LVOT mn grad (test code = 3814458641) 1.5 mmHg AV LVOT peak gradient (test code = 4900462658) 2.8 mmHg LVOT peak VTI (test code = 4486010621) 18.4 cm LV V1 mean (test code = 9575322351) 57.4 cm/s Aortic valve mean velocity (test code = 4158910390) 106.8 cm/s Ao peak leonel (test code = 8293392056) 146.3 cm/s Ao VTI (test code = 8918927364) 29.7 cm AV area by cont VTI (test code = 7271213624) 2 cm2 AV area peak leonel (test code = 2172682261) 1.8 cm2 Ao max PG (test code = 4999861694) 8.6 mm[Hg] AV peak gradient (test code = 5850902823) 8.6 mmHg AV valve area (test code = 2669428313) 1.96 cm2 AV mean gradient (test code = 0583633655) 4.9 mmHg AV regurgitation pressure 1/2 time (test code = 1238106732) 545.1 ms AI dec slope (test code = 1429321260) 86.6 cm/s2 AI max leonel (test code = 0092744164) 161.1 cm/s AI max PG (test code = 3284446019) 10.4 mm[Hg] Radiology Study observation (narrative) (test code = 01784-8) ALESIA (test code = ALESIA) ?Left?Ventricle: Left ventricle size is normal. Increased ventricular mass. There is mild eccentric hypertrophy. Severe global hypokinesis present. Mildly reduced systolic function with a visually estimated EF of 15 - 20%. Diastolic dysfunction. ?Left?Atrium: Left atrium is mildly dilated. ?Mitral?Valve: Mild to moderate transvalvular regurgitation. ?Pulmonic?Valve: Mild transvalvular regurgitation. ?Tricuspid?Valve: Moderate transvalvular regurgitation. Right ventricular systolic pressure is 30-35 mmHg. ?RA pressure is 5-10 mmHg. ?Pericardium: Trivial pericardial effusion present. Left VentricleLeft ventricle size is normal. Increased ventricular mass. There is mild eccentric hypertrophy. Severe global hypokinesis present. Mildly reduced systolic function with a visually estimated EF of 15 - 20%. Diastolic dysfunction.Right VentricleRight ventricle size is normal. Mildly reduced systolic function.Left AtriumLeft atrium is mildly dilated.Right AtriumRight atrium size is normal.Mitral ValveMildly thickened leaflets. Mild to moderate transvalvular regurgitation.Tricusp id ValveTricuspid valve structure is grossly normal. Moderate transvalvular regurgitation. Right ventricular systolic pressure is 30-35 mmHg. RA pressure is 5-10 mmHg.Aortic ValveTricuspid. Trace transvalvular regurgitation.Pulmoni c ValveNot well visualized. Mild transvalvular regurgitation.Ascendi ng AortaNormal sized aortic root.PericardiumTrivi al pericardial effusion present.Study DetailsStudy quality was adequate. A complete echocardiogram was performed using 2D, color flow Doppler and spectral Doppler. 3 mL of Optison ultrasound enhancing agent used. [facility] 20:29:26* Test Item Value Reference Range Interpretation Comme nts Height (test code = 3771172581) 68 in Weight (test code = 9307334555) 182 lbs Systolic BP (test code = 1607135543) 138 mmHg Diastolic BP (test code = 2293540652) 92 mmHg Heart Rate (test code = 7298915342) 71 bpm BSA (test code = 8078032442) 1.98 m2 LVOT diameter (test code = 8987069870) 2.01 cm LVOT area (test code = 2390922944) 3.2 cm2 Ao root diam (test code = 5303369836) 3.2 cm Aortic root (test code = 4438549432) 3.2 cm Ao root annulus (test code = 3397936473) 3.2 cm LA size (test code = 0379446774) 4.7 cm LVIDD (test code = 5745806265) 5.4 cm Left Ventricular End Diastolic Volume by Teichholz Method (test code = 9787159) 139.7 mL IVS (test code = 7279734261) 1.09 cm Interventricular Septum Diastolic Thickness by 2D (test code = 9884537) 1.09 cm LVPWD (test code = 4366175266) 1.11 cm LV RWT (test code = 6827982368) 0.41 LV mass (test code = 9901696125) 234.82 g LV Mass Index (test code = 4972034968) 118.6 g/m2 PW (test code = 2474838638) 1.11 cm 0.6-1.1 EF(Teich) (test code = 4356206701) 14.7 % LVIDS (test code = 6848879430) 5 cm Left Ventricular End Systolic Volume by Teichholz Method (test code = 0017695) 119.1 mL FS (test code = 3495914379) 7 % EF - 2D (test code = 14110991) 14.7 % TR Peak Leonel (test code = 2379716490) 271.5 cm/s Triscuspid Valve Regurgitation Peak Gradient (test code = 7368992055) 29.6 mmHg Pulmonic Regurgitant End Max Velocity (test code = 6142637605) 129.9 cm/s LAV(MOD-sp4) (test code = 7993749432) 88.5 mL E wave decelartion time (test code = 8908719266) 0.17 s MV stenosis pressure 1/2 time (test code = 7186250172) 51.2 ms MV Peak A Leonel (test code = 9899834629) 90.1 cm/s MV Peak E Leonel (test code = 4187438048) 130 cm/s E/A ratio (test code = 9745615140) 1.44 ratio MR max PG (test code = 8522031697) 66.2 mm[Hg] MR max leonel (test code = 1192765165) 406.6 cm/s Mr max leonel (test code = 4857067751) 406.6 m/s MV Prop V (test code = 4639961006) 41.3 cm/s MV E/e' septal (test code = 2500878342) 9.2 cm/s LVOT stroke volume (test code = 5582226480) 58.2 cm3 LVOT peak leonel (test code = 3853448799) 83.8 cm/s LVOT mn grad (test code = 7172977429) 1.5 mmHg AV LVOT peak gradient (test code = 3755955141) 2.8 mmHg LVOT peak VTI (test code = 5352717641) 18.4 cm LV V1 mean (test code = 5120065362) 57.4 cm/s Aortic valve mean velocity (test code = 6166826810) 106.8 cm/s Ao peak leonel (test code = 3993229235) 146.3 cm/s Ao VTI (test code = 8064549067) 29.7 cm AV area by cont VTI (test code = 0791897728) 2 cm2 AV area peak leonel (test code = 5519042139) 1.8 cm2 Ao max PG (test code = 0179882671) 8.6 mm[Hg] AV peak gradient (test code = 0629716035) 8.6 mmHg AV valve area (test code = 3358620938) 1.96 cm2 AV mean gradient (test code = 9795057900) 4.9 mmHg AV regurgitation pressure 1/2 time (test code = 0928629601) 545.1 ms AI dec slope (test code = 1241060522) 86.6 cm/s2 AI max leonel (test code = 7747357264) 161.1 cm/s AI max PG (test code = 0367754125) 10.4 mm[Hg] Radiology Study observation (narrative) (test code = 29388-8) ALESIA (test code = ALESIA) ?Left?Ventricle: Left ventricle size is normal. Increased ventricular mass. There is mild eccentric hypertrophy. Severe global hypokinesis present. Mildly reduced systolic function with a visually estimated EF of 15 - 20%. Diastolic dysfunction. ?Left?Atrium: Left atrium is mildly dilated. ?Mitral?Valve: Mild to moderate transvalvular regurgitation. ?Pulmonic?Valve: Mild transvalvular regurgitation. ?Tricuspid?Valve: Moderate transvalvular regurgitation. Right ventricular systolic pressure is 30-35 mmHg. ?RA pressure is 5-10 mmHg. ?Pericardium: Trivial pericardial effusion present. Left VentricleLeft ventricle size is normal. Increased ventricular mass. There is mild eccentric hypertrophy. Severe global hypokinesis present. Mildly reduced systolic function with a visually estimated EF of 15 - 20%. Diastolic dysfunction.Right VentricleRight ventricle size is normal. Mildly reduced systolic function.Left AtriumLeft atrium is mildly dilated.Right AtriumRight atrium size is normal.Mitral ValveMildly thickened leaflets. Mild to moderate transvalvular regurgitation.Tricusp id ValveTricuspid valve structure is grossly normal. Moderate transvalvular regurgitation. Right ventricular systolic pressure is 30-35 mmHg. RA pressure is 5-10 mmHg.Aortic ValveTricuspid. Trace transvalvular regurgitation.Pulmoni c ValveNot well visualized. Mild transvalvular regurgitation.Ascendi ng AortaNormal sized aortic root.PericardiumTrivi al pericardial effusion present.Study DetailsStudy quality was adequate. A complete echocardiogram was performed using 2D, color flow Doppler and spectral Doppler. 3 mL of Optison ultrasound enhancing agent used. [facility] GLUCOSE (AUTOMATED)2025-05-11 16:39:10* Test Item Value Reference Range Interpretation Comme nts POCT GLU (test code = 3666632118) 231 mg/dL 70-110 H Lab Interpretation (test cod e = 56896-3) Abnormal [facility] GLUCOSE (AUTOMATED)2025-05-11 16:39:10* Test Item Value Reference Range Interpretation Comme nts POCT GLU (test code = 2013526389) 231 mg/dL 70-110 H Lab Interpretation (test cod e = 11181-6) Abnormal [facility] GLUCOSE (AUTOMATED)2025-05-11 12:41:09* Test Item Value Reference Range Interpretation Comme nts POCT GLU (test code = 2754929941) 152 mg/dL 70-110 H Lab Interpretation (test cod e = 22329-9) Abnormal [facility] GLUCOSE (AUTOMATED)2025-05-11 12:41:09* Test Item Value Reference Range Interpretation Comme nts POCT GLU (test code = 4393170277) 152 mg/dL 70-110 H Lab Interpretation (test cod e = 71408-1) Abnormal [facility] with [id number] 11:19:23* Test Item Value Reference Range Interpretation Comme nts WBC (test code = 6690-2) 8.15 4.20-10.70 RBC (test code = 789-8) 3.44 4.26-5.52 L HGB (test code = 718-7) 9.6 g/dL 12.2-16.4 L HCT (test code = 4544-3) 31.6 % 38.4-49.3 L MCV (test code = 787-2) 91.9 fL 81.7-95.6 MCH (test code = 785-6) 27.9 pg 26.1-32.7 MCHC (test code = 786-4) 30.4 g/dL 31.2-35.0 L RDW-SD (test code = 25846-2) 53.1 fL 38.5-51.6 H RDW-CV (test code = 788-0) 16.1 % 12.1-15.4 H PLT (test code = 777-3) 180 150-328 MPV (test code = 35363-7) 11.5 fL 9.8-13.0 NRBC/100 WBC (test code = 5179186400) 0 0.0-10.0 NRBC x10^3 (test code = 2797438737) See_Comment [Automated messa ge] The system which generated this result transmitted reference range: 10*3/?L. The reference range was not used to interpret this result as normal/abnormal. GRAN MAT (NEUT) % (test code = 770-8) 77.5 % IMM GRAN % (test code = 0111420703) 0.5 % LYMPH % (test code = 736-9) 10.9 % MONO % (test code = 5905-5) 10.8 % EOS % (test code = 713-8) 0.1 % BASO % (test code = 706-2) 0.2 % GRAN MAT x10^3(ANC) (test code = 7911743351) 6.31 10*3/uL 1.99-6.95 IMM GRAN x10^3 (test code = 3788108258) 0.04 10*3/uL 0.00-0.06 LYMPH x10^3 (test code = 731-0) 0.89 10*3/uL 1.09-3.23 L MONO x10^3 (test code = 742-7) 0.88 10*3/uL 0.36-1.02 EOS x10^3 (test code = 711-2) 0.06-0.53 L BASO x10^3 (test code = 704-7) 0.01-0.09 Lab Interpretation (test code = 61468-8) Abnormal [facility] with [id number] 11:19:23* Test Item Value Reference Range Interpretation Comme nts WBC (test code = 6690-2) 8.15 4.20-10.70 RBC (test code = 789-8) 3.44 4.26-5.52 L HGB (test code = 718-7) 9.6 g/dL 12.2-16.4 L HCT (test code = 4544-3) 31.6 % 38.4-49.3 L MCV (test code = 787-2) 91.9 fL 81.7-95.6 MCH (test code = 785-6) 27.9 pg 26.1-32.7 MCHC (test code = 786-4) 30.4 g/dL 31.2-35.0 L RDW-SD (test code = 77101-3) 53.1 fL 38.5-51.6 H RDW-CV (test code = 788-0) 16.1 % 12.1-15.4 H PLT (test code = 777-3) 180 150-328 MPV (test code = 04632-2) 11.5 fL 9.8-13.0 NRBC/100 WBC (test code = 7521862053) 0 0.0-10.0 NRBC x10^3 (test code = 0830824130) See_Comment [Automated messa ge] The system which generated this result transmitted reference range: 10*3/?L. The reference range was not used to interpret this result as normal/abnormal. GRAN MAT (NEUT) % (test code = 770-8) 77.5 % IMM GRAN % (test code = 6546672244) 0.5 % LYMPH % (test code = 736-9) 10.9 % MONO % (test code = 5905-5) 10.8 % EOS % (test code = 713-8) 0.1 % BASO % (test code = 706-2) 0.2 % GRAN MAT x10^3(ANC) (test code = 1902666796) 6.31 10*3/uL 1.99-6.95 IMM GRAN x10^3 (test code = 9725107993) 0.04 10*3/uL 0.00-0.06 LYMPH x10^3 (test code = 731-0) 0.89 10*3/uL 1.09-3.23 L MONO x10^3 (test code = 742-7) 0.88 10*3/uL 0.36-1.02 EOS x10^3 (test code = 711-2) 0.06-0.53 L BASO x10^3 (test code = 704-7) 0.01-0.09 Lab Interpretation (test code = 59563-2) Abnormal [facility] [id number] 10:56:41* Test Item Value Reference Range Interpretation Comme nts TROPONIN I (test code = 9675796675) 0.023 ng/mL <=0.034 ALESIA (test code = ALESIA) [...] of biotin. Lab Interpretation (test code = 00304-3) Normal [facility] [id number] 10:56:41* Test Item Value Reference Range Interpretation Comme nts TROPONIN I (test code = 7650580049) 0.023 ng/mL <=0.034 ALESIA (test code = ALESIA) [...] of biotin. Lab Interpretation (test code = 14593-3) Normal [facility] Metabolic Panel (NA, K, CL, CO2, GLUCOSE, BUN, CREATININE, CA)2025-05-11 10:46:19* Test Item Value Reference Range Interpretation Comme nts NA (test code = 4221076782) 137 mmol/L 135-145 K (test code = 6265808226) 4 mmol/L 3.5-5.0 CL (test code = 4722962613) 99 mmol/L 98-108 CO2 TOTAL (test code = 5382657876) 26 mmol/L 23-31 AGAP (test code = 3188145490) 12 2-16 BUN (test code = 6023233174) 45 mg/dL 7-23 H GLUCOSE (test code = 9054737340) 221 mg/dL 70-110 H CREATININE (test code = 2160-0) 5.45 mg/dL 0.60-1.25 H CALCIUM (test code = 5265217077) 8.3 mg/dL 8.6-10.6 L eGFR (test code = 55365-1) 11.7 mL/min/1.73m2 CKD-EPI eGFR (2020). Assuming creatinine has been stable day-to-day for at least three months, the eGFR indicates Category G5 (<= 14mL/min/1.73 m2) Lab Interpretation (test code = 23884-1) [facility] 10:46:19* Test Item Value Reference Range Interpretation Comme nts MAGNESIUM (test code = 9974148909) 2.3 mg/dL 1.7-2.4 Lab Interpretation (test cod e = 94789-8) Normal [facility] Metabolic Panel (NA, K, CL, CO2, GLUCOSE, BUN, CREATININE, CA)2025-05-11 10:46:19* Test Item Value Reference Range Interpretation Comme nts NA (test code = 8279958762) 137 mmol/L 135-145 K (test code = 6221829237) 4 mmol/L 3.5-5.0 CL (test code = 5143789155) 99 mmol/L 98-108 CO2 TOTAL (test code = 9688323333) 26 mmol/L 23-31 AGAP (test code = 7825479437) 12 2-16 BUN (test code = 2066733558) 45 mg/dL 7-23 H GLUCOSE (test code = 4220544981) 221 mg/dL 70-110 H CREATININE (test code = 2160-0) 5.45 mg/dL 0.60-1.25 H CALCIUM (test code = 8177562432) 8.3 mg/dL 8.6-10.6 L eGFR (test code = 35751-5) 11.7 mL/min/1.73m2 CKD-EPI eGFR (2020). Assuming creatinine has been stable day-to-day for at least three months, the eGFR indicates Category G5 (<= 14mL/min/1.73 m2) Lab Interpretation (test code = 49874-0) [facility]25-[facility] 10:46:19* Test Item Value Reference Range Interpretation Comme nts MAGNESIUM (test code = 6860065069) 2.3 mg/dL 1.7-2.4 Lab Interpretation (test cod e = 35828-1) Normal [facility] GLUCOSE (AUTOMATED)2025-05-11 00:00:08* Test Item Value Reference Range Interpretation Comme nts POCT GLU (test code = 6404481842) 292 mg/dL 70-110 H Lab Interpretation (test cod e = 96140-2) Abnormal [facility] GLUCOSE (AUTOMATED)2025-05-11 00:00:08* Test Item Value Reference Range Interpretation Comme [facility] POCT GLU (test code = 5517493225) 292 mg/dL 70-110 H Lab Interpretation (test cod e = 15472-5) [facility]normal [facility]25-[facility]30 18:12:27* Test Item Value Reference Range Interpretation Comme nts Procalcitonin (test code = 6877724695) 1.07 ng/mL <=0.07 H ALESIA (test code = ALESIA) INTERPRETATION OF PROCALCITONIN RESULTS IN ADULTS >= 18 YEARS OF AGE Initiation and discontinuation of antibiotics on patients with suspected or confirmed Lower Respiratory Tract Infection in Adults >= 18 years of age. + +-------- --------+ + -----+|Procalcitonin |Interpretation ?|Antibiotic ? ? |Considerations ? |ng/mL ? | ?|recommendation | ? + +-------- --------+ + -----+| <0.1 ? | Bacterial ? ? ?| Strongly ? ? ?| ? | ?| infection very | discouraged ? | Overruling: ? | ?| unlikely ? ? ? | ? | ? Clinically unstable ? ? ? + +-------- --------+ + ? High risk for adverse ? ? | <0.25 ?| Bacterial ? ? ?| Discouraged ? | ? outcome ? | ?| infection ? ? ?| ? | ? SEE IMPORTANT NOTE ?| ?| unlikely ? ? ? | ? | ? + +-------- --------+ + -----+| >=0.25 ? ? ? | Bacterial ? ? ?| Encouraged ? ?| ? | ?| infection ? ? ?| ? | ? | ?| likely ? | ? | Consider treatment failure ?+ +------- ---------+ -+ if levels does not decrease | >0.5 ? | Bacterial ? ? ?| Strongly ? ? ?| appropriately ? | ?| infection very | encouraged ? ?| ? | ?| likely ? | ? | ? + +-------- --------+ + -----+ Discontinuation of antibiotics in high-acuity patients with suspected or confirmed sepsis in Adults >= 18 years of age. + +-------- --------+ + -----+|Procalcitonin |Interpretation ?|Antibiotic ? ? |Considerations ? |ng/mL ? | ?|recommendation | ? + +-------- --------+ + -----+| <0.25 ?| Bacterial ? ? ?| Strongly ? ? ?| ? | ?| infection very | discouraged ? | Overruling: ? | ?| unlikely ? ? ? | ? | ? Clinically unstable ? ? ? + +-------- --------+ + ? High risk for adverse ? ? | <0.5 or drop | Bacterial ? ? ?| Discouraged ? | ? outcome ? | >80% from ? ?| infection ? ? ?| ? | ? SEE IMPORTANT NOTE ?| highest PCT ?| unlikely ? ? ? | ? | ? | level ?| ?| ? | ? + +-------- --------+ + -----+| >=0.5 ?| Bacterial ? ? ?| Encouraged ? ?| ? | ?| infection ? ? ?| ? | ? | ?| likely ? | ? | Consider treatment failure ?+ +------- ---------+ -+ if levels does not decrease | >1.0 ? | Bacterial ? ? ?| Strongly ? ? ?| appropriately ? | ?| infection very | encouraged ? ?| ? | ?| likely ? | ? | ? + +-------- --------+ + -----+ Percentage of drop of Procalcitonin calculation for Discontinuation of antibiotics in high-acuity patients with suspected or confirmed sepsis in Adults >= 18 years of age. ? Procalcitonin highest{}-Procalcitonin current{}Delta Procalcitonin = x100% ? Procalcitonin current {} IMPORTANT NOTE: Procalcitonin may be elevated without bacterial infection by physiologic stress related to trauma, couch, chronic dialysis, metastatic cancer, surgery in the past seven days, malaria, some fungal infections, and some forms of vasculitis. The interpretation algorithm may not apply to patients with immunosuppression (equivalent of >10 mg of prednisone daily), HIV with CD4 cell count < 350 cells/mm3, active malignancy on systemic chemotherapy, solid organ transplant or hematopoietic stem cell transplantation, or hospital acquired pneumonia. Additionally, some clinical trials of procalcitonin have excluded patients with shock requiring vasopressor use, acute respiratory failure requiring mechanical ventilation, or those with known lung abscess/empyema. For further information please refer to:[email or web address] Lab Interpretation (test code = 84261-1) [facility]25-[facility] 18:12:27* Test Item Value Reference Range Interpretation Comme nts Procalcitonin (test code = 6314795539) 1.07 ng/mL <=0.07 H ALESIA (test code = ALESIA) INTERPRETATION OF PROCALCITONIN RESULTS IN ADULTS >= 18 YEARS OF AGE Initiation and discontinuation of antibiotics on patients with suspected or confirmed Lower Respiratory Tract Infection in Adults >= 18 years of age. + +-------- --------+ + -----+|Procalcitonin |Interpretation ?|Antibiotic ? ? |Considerations ? |ng/mL ? | ?|recommendation | ? + +-------- --------+ + -----+| <0.1 ? | Bacterial ? ? ?| Strongly ? ? ?| ? | ?| infection very | discouraged ? | Overruling: ? | ?| unlikely ? ? ? | ? | ? Clinically unstable ? ? ? + +-------- --------+ + ? High risk for adverse ? ? | <0.25 ?| Bacterial ? ? ?| Discouraged ? | ? outcome ? | ?| infection ? ? ?| ? | ? SEE IMPORTANT NOTE ?| ?| unlikely ? ? ? | ? | ? + +-------- --------+ + -----+| >=0.25 ? ? ? | Bacterial ? ? ?| Encouraged ? ?| ? | ?| infection ? ? ?| ? | ? | ?| likely ? | ? | Consider treatment failure ?+ +------- ---------+ -+ if levels does not decrease | >0.5 ? | Bacterial ? ? ?| Strongly ? ? ?| appropriately ? | ?| infection very | encouraged ? ?| ? | ?| likely ? | ? | ? + +-------- --------+ + -----+ Discontinuation of antibiotics in high-acuity patients with suspected or confirmed sepsis in Adults >= 18 years of age. + +-------- --------+ + -----+|Procalcitonin |Interpretation ?|Antibiotic ? ? |Considerations ? |ng/mL ? | ?|recommendation | ? + +-------- --------+ + -----+| <0.25 ?| Bacterial ? ? ?| Strongly ? ? ?| ? | ?| infection very | discouraged ? | Overruling: ? | ?| unlikely ? ? ? | ? | ? Clinically unstable ? ? ? + +-------- --------+ + ? High risk for adverse ? ? | <0.5 or drop | Bacterial ? ? ?| Discouraged ? | ? outcome ? | >80% from ? ?| infection ? ? ?| ? | ? SEE IMPORTANT NOTE ?| highest PCT ?| unlikely ? ? ? | ? | ? | level ?| ?| ? | ? + +-------- --------+ + -----+| >=0.5 ?| Bacterial ? ? ?| Encouraged ? ?| ? | ?| infection ? ? ?| ? | ? | ?| likely ? | ? | Consider treatment failure ?+ +------- ---------+ -+ if levels does not decrease | >1.0 ? | Bacterial ? ? ?| Strongly ? ? ?| appropriately ? | ?| infection very | encouraged ? ?| ? | ?| likely ? | ? | ? + +-------- --------+ + -----+ Percentage of drop of Procalcitonin calculation for Discontinuation of antibiotics in high-acuity patients with suspected or confirmed sepsis in Adults >= 18 years of age. ? Procalcitonin highest{}-Procalcitonin current{}Delta Procalcitonin = x100% ? Procalcitonin current {} IMPORTANT NOTE: Procalcitonin may be elevated without bacterial infection by physiologic stress related to trauma, couch, chronic dialysis, metastatic cancer, surgery in the past seven days, malaria, some fungal infections, and some forms of vasculitis. The interpretation algorithm may not apply to patients with immunosuppression (equivalent of >10 mg of prednisone daily), HIV with CD4 cell count < 350 cells/mm3, active malignancy on systemic chemotherapy, solid organ transplant or hematopoietic stem cell transplantation, or hospital acquired pneumonia. Additionally, some clinical trials of procalcitonin have excluded patients with shock requiring vasopressor use, acute respiratory failure requiring mechanical ventilation, or those with known lung abscess/empyema. For further information please refer to:[email or web address] Lab Interpretation (test code = 09732-0) Abnormal [facility] GLUCOSE (AUTOMATED)2025-05-10 16:36:36* Test Item Value Reference Range Interpretation Comme nts POCT GLU (test code = 6313994152) 271 mg/dL 70-110 H Lab Interpretation (test cod e = 97072-3) Abnormal [facility] GLUCOSE (AUTOMATED)2025-05-10 16:36:36* Test Item Value Reference Range Interpretation Comme nts POCT GLU (test code = 9826719455) 271 mg/dL 70-110 H Lab Interpretation (test cod e = 71490-6) Abnormal [facility] GLUCOSE (AUTOMATED)2025-05-10 12:31:40* Test Item Value Reference Range Interpretation Comme nts POCT GLU (test code = 8406846596) 195 mg/dL 70-110 H Lab Interpretation (test cod e = 12763-3) Abnormal [facility] GLUCOSE (AUTOMATED)2025-05-10 12:31:40* Test Item Value Reference Range Interpretation Comme nts POCT GLU (test code = 7913189291) 195 mg/dL 70-110 H Lab Interpretation (test cod e = 15948-5) [facility]normal [facility] [id number]-[id number] 08:24:59* Test Item Value Reference Range Interpretation Comme nts NT-proBNP (test code = 42965-3) 637771 pg/mL <=125 H ALESIA (test code = ALESIA) Positive: Heart Failure Likely Lab Interpretation (test code = 63088-3) [facility]normal [facility] EAN-[id number] 08:24:59* Test Item Value Reference Range Interpretation Comme nts NT-proBNP (test code = 71594-4) 398975 pg/mL <=125 H ALESIA (test code = ALESIA) Positive: Heart Failure Likely Lab Interpretation (test code = 57148-1) Abnormal [facility]rop[facility] [id number] 07:45:20* Test Item Value Reference Range Interpretation Comme nts TROPONIN I (test code = 5524200943) 0.051 ng/mL <=0.034 H ALESIA (test code = ALESIA) Reference (Normal) [...] of biotin. Lab Interpretation (test code = 91364-1) Abnormal [facility] AustinTroponin [id number] 07:45:20* Test Item Value Reference Range Interpretation Comme nts TROPONIN I (test code = 4000114397) 0.051 ng/mL <=0.034 H ALESIA (test code = ALESIA) Reference (Normal) [...] of biotin. Lab Interpretation (test code = 77787-7) [facility]normal [facility] 1 [id number] 07:36:11Ordering physician: JULIAN MORALES Indication: STEMI Comparison: Chest dated 03/20/2025 Technical quality: Adequate Findings: Single AP view of the chest. The cardiopericardial silhouette ismildly enlarged. The lungs are clear bilaterally. The visualized bonythorax is intact.[facility] 1 [id number] 07:36:11Ordering physician: JULIAN MORALES Indication: STEMI Comparison: Chest dated 03/20/2025 Technical quality: Adequate Findings: Single AP view of the chest. The cardiopericardial silhouette ismildly enlarged. The lungs are clear bilaterally. The visualized bonythorax is intact.[facility]MP[facility]25-[facility] 07:17:02* Test Item Value Reference Range Interpretation Comme nts NA (test code = 8078810988) 141 mmol/L 135-145 K (test code = 5145239255) 3.9 mmol/L 3.5-5.0 CL (test code = 9529930824) 98 mmol/L 98-108 CO2 TOTAL (test code = 3730959125) 32 mmol/L 23-31 H AGAP (test code = 4944214551) 11 2-16 BUN (test code = 5802157742) 35 mg/dL 7-23 H GLUCOSE (test code = 7347729320) 118 mg/dL 70-110 H CREATININE (test code = 2160-0) 5.09 mg/dL 0.60-1.25 H TOTAL BILI (test code = 8492984278) 0.8 mg/dL 0.1-1.1 CALCIUM (test code = 4218185427) 8.1 mg/dL 8.6-10.6 L T PROTEIN (test code = 8332796801) 7.9 g/dL 6.3-8.2 ALBUMIN (test code = 3536815566) 4.1 g/dL 3.5-5.0 ALK PHOS (test code = 5801857773) 142 U/L 34-122 H ALTv (test code = 1742-6) 15 U/L 5-50 AST(SGOT) (test code = 4943755941) 30 U/L 13-40 eGFR (test code = 29575-4) 12.7 mL/min/1.73m2 CKD-EPI eGFR (2020). Assuming creatinine has been stable day-to-day for at least three months, the eGFR indicates Category G5 (<= 14mL/min/1.73 m2) Lab Interpretation (test code = 56073-4) Abnormal [facility]25-[facility] 07:17:02* Test Item Value Reference Range Interpretation Comme nts NA (test code = 0126096262) 141 mmol/L 135-145 K (test code = 3705566723) 3.9 mmol/L 3.5-5.0 CL (test code = 5994611929) 98 mmol/L 98-108 CO2 TOTAL (test code = 3312205401) 32 mmol/L 23-31 H AGAP (test code = 0155374418) 11 2-16 BUN (test code = 1767319011) 35 mg/dL 7-23 H GLUCOSE (test code = 4894223394) 118 mg/dL 70-110 H CREATININE (test code = 2160-0) 5.09 mg/dL 0.60-1.25 H TOTAL BILI (test code = 0080132685) 0.8 mg/dL 0.1-1.1 CALCIUM (test code = 6935044619) 8.1 mg/dL 8.6-10.6 L T PROTEIN (test code = 8786893899) 7.9 g/dL 6.3-8.2 ALBUMIN (test code = 8519645761) 4.1 g/dL 3.5-5.0 ALK PHOS (test code = 0191616418) 142 U/L 34-122 H ALTv (test code = 1742-6) 15 U/L 5-50 AST(SGOT) (test code = 9618761454) 30 U/L 13-40 eGFR (test code = 83055-9) 12.7 mL/min/1.73m2 CKD-EPI eGFR (2020). Assuming creatinine has been stable day-to-day for at least three months, the eGFR indicates Category G5 (<= 14mL/min/1.73 m2) Lab Interpretation (test code = 66436-8) Abnormal [facility] with [id number] 07:04:43* Test Item Value Reference Range Interpretation Comme nts WBC (test code = 6690-2) 6.86 4.20-10.70 RBC (test code = 789-8) 3.7 4.26-5.52 L HGB (test code = 718-7) 10.7 g/dL 12.2-16.4 L HCT (test code = 4544-3) 35 % 38.4-49.3 L MCV (test code = 787-2) 94.6 fL 81.7-95.6 MCH (test code = 785-6) 28.9 pg 26.1-32.7 MCHC (test code = 786-4) 30.6 g/dL 31.2-35.0 L RDW-SD (test code = 85991-6) 56 fL 38.5-51.6 H RDW-CV (test code = 788-0) 16.3 % 12.1-15.4 H PLT (test code = 777-3) 161 150-328 MPV (test code = 20004-6) 10.8 fL 9.8-13.0 NRBC/100 WBC (test code = 5977542904) 0 0.0-10.0 NRBC x10^3 (test code = 3699799096) See_Comment [Automated messa ge] The system which generated this result transmitted reference range: 10*3/?L. The reference range was not used to interpret this result as normal/abnormal. GRAN MAT (NEUT) % (test code = 770-8) 70.9 % IMM GRAN % (test code = 0754908167) 0.3 % LYMPH % (test code = 736-9) 13 % MONO % (test code = 5905-5) 11.5 % EOS % (test code = 713-8) 3.6 % BASO % (test code = 706-2) 0.7 % GRAN MAT x10^3(ANC) (test code = 2560195500) 4.86 10*3/uL 1.99-6.95 IMM GRAN x10^3 (test code = 0739467950) 0.00-0.06 LYMPH x10^3 (test code = 731-0) 0.89 10*3/uL 1.09-3.23 L MONO x10^3 (test code = 742-7) 0.79 10*3/uL 0.36-1.02 EOS x10^3 (test code = 711-2) 0.25 10*3/uL 0.06-0.53 BASO x10^3 (test code = 704-7) 0.05 10*3/uL 0.01-0.09 Lab Interpretation (test code = 97497-9) Abnormal [facility] with [id number] 07:04:43* Test Item Value Reference Range Interpretation Comme nts WBC (test code = 6690-2) 6.86 4.20-10.70 RBC (test code = 789-8) 3.7 4.26-5.52 L HGB (test code = 718-7) 10.7 g/dL 12.2-16.4 L HCT (test code = 4544-3) 35 % 38.4-49.3 L MCV (test code = 787-2) 94.6 fL 81.7-95.6 MCH (test code = 785-6) 28.9 pg 26.1-32.7 MCHC (test code = 786-4) 30.6 g/dL 31.2-35.0 L RDW-SD (test code = 45650-2) 56 fL 38.5-51.6 H RDW-CV (test code = 788-0) 16.3 % 12.1-15.4 H PLT (test code = 777-3) 161 150-328 MPV (test code = 46708-2) 10.8 fL 9.8-13.0 NRBC/100 WBC (test code = 8628473844) 0 0.0-10.0 NRBC x10^3 (test code = 2672163234) See_Comment [Automated messa ge] The system which generated this result transmitted reference range: 10*3/?L. The reference range was not used to interpret this result as normal/abnormal. GRAN MAT (NEUT) % (test code = 770-8) 70.9 % IMM GRAN % (test code = 1245575048) 0.3 % LYMPH % (test code = 736-9) 13 % MONO % (test code = 5905-5) 11.5 % EOS % (test code = 713-8) 3.6 % BASO % (test code = 706-2) 0.7 % GRAN MAT x10^3(ANC) (test code = 4394158448) 4.86 10*3/uL 1.99-6.95 IMM GRAN x10^3 (test code = 5513709626) 0.00-0.06 LYMPH x10^3 (test code = 731-0) 0.89 10*3/uL 1.09-3.23 L MONO x10^3 (test code = 742-7) 0.79 10*3/uL 0.36-1.02 EOS x10^3 (test code = 711-2) 0.25 10*3/uL 0.06-0.53 BASO x10^3 (test code = 704-7) 0.05 10*3/uL 0.01-0.09 Lab Interpretation (test code = 97751-2) [facility]normal [facility] wo [id number] 03:48:49Ordering Physician: PAMELLA JOHNS Clinical indication: Acute nonlocalized abdominal pain. Anasarca. Historyof alcohol abuse. Rule out ascites. Comparison: None. Technique: CT abdomen and pelvis without intravenous contrast. Thisexamination was performed according to ALARA principles. Technical quality: Adequate Findings: There is diffuse soft tissue edema, compatible with anasarca. There arebilateral pleural effusions, small on the left and moderate in size on theright. Trace free fluid is seen within the pelvis. There is a mildlylobular hepatic contour, with prominence of the caudate lobe and lateralsegment of the left hepatic lobe, suggestive of cirrhosis. In addition, thespleen is enlarged, likely reflecting portal venous hypertension. There jeffery subcentimeter right hepatic lobe cyst.The gallbladder is contracted. Calcifications of the pancreatic head anduncinate process are present, compatible with chronic pancreatitis.Evaluation of the stomach is limited by lack of distention, but no grossgastric abnormalities are apparent. No adrenal abnormalities are evident.Both kidneys are mildly atrophic. Intrarenal calcifications are likelyvascular, although it is not possible to exclude nephrolithiasis. There isatherosclerotic calcification of the abdominal aorta and its branches, withno evidence of aneurysm. Urinary bladder wall thickness is likely normal for the degree ofdistention. Mildly enlarged inguinal and external iliac chain lymph nodesare present bilaterally. There iscolonic diverticulosis, withoutdiverticulitis. There is no bowel distention. A normal appendix iside ntified. There is no free intraperitoneal air. The heart is enlarged.Atherosclerotic coronary artery disease is present. There is a smallpericardial effusion. A fracture of the lateral aspect of the left eighthrib is subacute in appearance, with callus formation present. A fracture ofthe lateral aspect of the ninth rib on this side may be acute or subacute. [facility] Testicular [id number] 03:24:10EXAM: US TESTICULAR TORSION HISTORY: 54 years -old Male with Testicular pain TECHNIQUE: Ultrasound imaging of the scrotum was performed including colorand spectral Doppler evaluation of the testicles. Pesticide Chemist imageswere obtained for the record. COMPARISON: None FINDINGS: Right Testicle: Testicle is normal in size, shape, and echotexture. Thetesticle measures 3.6 x 2.7 x 2.9 cm, 14.4 mL. Arterial and venouswaveforms are demonstrated at the right testicle. No focal lesion ispresent. Left Testicle: Testicle is normal in size, shape, and echotexture.Thetesticle measures 3.5 x 2.4 x 2.5, 11.3 mL. Arterial and venous waveformsare demonstrated at the left testicle. ? Right Epididymis: The right epididymal head is normal in size anddemonstrates normal blood flow. Left Epididymis: The left epididymal head is normal in size anddemonstrates normal blood flow. Other: Marked scrotal thickening and edema noted diffusely with hyperemia.No subcutaneous specks of air noted to suggest Norah'sgangrene. Mildincrease in in color Doppler signal within the bilateral inguinal canalsfollowing Valsalva maneuver.[facility]. Metabolic Panel (09341)2025-05-06 02:48:49* Test Item Value Reference Range Interpretation Comme nts NA (test code = 5445547721) 139 mmol/L 135-145 K (test code = 1420818626) 3.9 mmol/L 3.5-5.0 CL (test code = 8201155907) 98 mmol/L 98-108 CO2 TOTAL (test code = 1295651399) 29 mmol/L 23-31 AGAP (test code = 9902654681) 12 2-16 BUN (test code = 6445218535) 31 mg/dL 7-23 H GLUCOSE (test code = 0680124319) 147 mg/dL 70-110 H CREATININE (test code = 2160-0) 4.63 mg/dL 0.60-1.25 H TOTAL BILI (test code = 9367980690) 0.9 mg/dL 0.1-1.1 CALCIUM (test code = 3804177753) 8.2 mg/dL 8.6-10.6 L T PROTEIN (test code = 6398450501) 7.5 g/dL 6.3-8.2 ALBUMIN (test code = 1393292613) 3.9 g/dL 3.5-5.0 ALK PHOS (test code = 8180100529) 149 U/L 34-122 H ALTv (test code = 1742-6) 15 U/L 5-50 AST(SGOT) (test code = 0094311628) 25 U/L 13-40 eGFR (test code = 44838-1) 14.2 mL/min/1.73m2 Lab Interpretation (test cod e = 88605-9) Abnormal [facility] AustinProthrombin Time / [id number] 02:43:47* Test Item Value Reference Range Interpretation Comme nts PROTIME PATIENT (test code = 5964-2) 14.5 10.1-12.6 H INR (test code = 6301-6) 1.2 <=4.5 Normal INR <1.1; Warfarin Therapeutic range 2.0 to 3.0 or 2.5 to 3.5, depending upon the indications. Lab Interpretation (test code = 28735-4) Abnormal [facility] with [id number] 02:34:06* Test Item Value Reference Range Interpretation Comme nts WBC (test code = 6690-2) 5.98 4.20-10.70 RBC (test code = 789-8) 3.7 4.26-5.52 L HGB (test code = 718-7) 10.3 g/dL 12.2-16.4 L HCT (test code = 4544-3) 33.3 % 38.4-49.3 L MCV (test code = 787-2) 90 fL 81.7-95.6 MCH (test code = 785-6) 27.8 pg 26.1-32.7 MCHC (test code = 786-4) 30.9 g/dL 31.2-35.0 L RDW-SD (test code = 86063-0) 51.2 fL 38.5-51.6 RDW-CV (test code = 788-0) 15.9 % 12.1-15.4 H PLT (test code = 777-3) 162 150-328 MPV (test code = 34971-3) 11 fL 9.8-13.0 NRBC/100 WBC (test code = 9883436353) 0 0.0-10.0 NRBC x10^3 (test code = 9644585231) See_Comment [Automated messa ge] The system which generated this result transmitted reference range: 10*3/?L. The reference range was not used to interpret this result as normal/abnormal. GRAN MAT (NEUT) % (test code = 770-8) 68.8 % IMM GRAN % (test code = 7738557060) 0.5 % LYMPH % (test code = 736-9) 15.2 % MONO % (test code = 5905-5) 11.7 % EOS % (test code = 713-8) 2.8 % BASO % (test code = 706-2) 1 % GRAN MAT x10^3(ANC) (test code = 6785581729) 4.11 10*3/uL 1.99-6.95 IMM GRAN x10^3 (test code = 7583207336) 0.03 10*3/uL 0.00-0.06 LYMPH x10^3 (test code = 731-0) 0.91 10*3/uL 1.09-3.23 L MONO x10^3 (test code = 742-7) 0.7 10*3/uL 0.36-1.02 EOS x10^3 (test code = 711-2) 0.17 10*3/uL 0.06-0.53 BASO x10^3 (test code = 704-7) 0.06 10*3/uL 0.01-0.09 Lab Interpretation (test code = 66578-7) Abnormal [facility] Metabolic Panel (NA, K, CL, CO2, GLUCOSE, BUN, CREATININE, CA)2025-03-20 10:15:17* Test Item Value Reference Range Interpretation Comme nts NA (test code = 8352325885) 139 mmol/L 135-145 K (test code = 6929264723) 5.2 mmol/L 3.5-5.0 H CL (test code = 9802465851) 99 mmol/L 98-108 CO2 TOTAL (test code = 8635713825) 23 mmol/L 23-31 AGAP (test code = 3655276380) 17 2-16 H BUN (test code = 4258972951) 78 mg/dL 7-23 H GLUCOSE (test code = 4750862308) 168 mg/dL 70-110 H CREATININE (test code = 2160-0) 12.88 mg/dL 0.60-1.25 H CALCIUM (test code = 1238441374) 7.9 mg/dL 8.6-10.6 L eGFR (test code = 12663-8) 4.2 mL/min/1.73m2 CKD-EPI eGFR (2020). Assuming creatinine has been stable day-to-day for at least three months, the eGFR indicates Category G5 (<= 14mL/min/1.73 m2) Lab Interpretation (test code = 54162-4) Abnormal [facility] with [id number] 10:02:57* Test Item Value Reference Range Interpretation Comme nts WBC (test code = 6690-2) 8.18 4.20-10.70 RBC (test code = 789-8) 4.48 4.26-5.52 HGB (test code = 718-7) 12.4 g/dL 12.2-16.4 HCT (test code = 4544-3) 39.9 % 38.4-49.3 MCV (test code = 787-2) 89.1 fL 81.7-95.6 MCH (test code = 785-6) 27.7 pg 26.1-32.7 MCHC (test code = 786-4) 31.1 g/dL 31.2-35.0 L RDW-SD (test code = 39488-2) 49.1 fL 38.5-51.6 RDW-CV (test code = 788-0) 15.3 % 12.1-15.4 PLT (test code = 777-3) 145 150-328 L MPV (test code = 90184-9) 11.2 fL 9.8-13.0 NRBC/100 WBC (test code = 5720083407) 0 0.0-10.0 NRBC x10^3 (test code = 9910687458) See_Comment [Automated messa ge] The system which generated this result transmitted reference range: 10*3/?L. The reference range was not used to interpret this result as normal/abnormal. GRAN MAT (NEUT) % (test code = 770-8) 76.4 % IMM GRAN % (test code = 0769415873) 0.4 % LYMPH % (test code = 736-9) 11.7 % MONO % (test code = 5905-5) 8.9 % EOS % (test code = 713-8) 2 % BASO % (test code = 706-2) 0.6 % GRAN MAT x10^3(ANC) (test code = 1251149395) 6.25 10*3/uL 1.99-6.95 IMM GRAN x10^3 (test code = 9308023001) 0.03 10*3/uL 0.00-0.06 LYMPH x10^3 (test code = 731-0) 0.96 10*3/uL 1.09-3.23 L MONO x10^3 (test code = 742-7) 0.73 10*3/uL 0.36-1.02 EOS x10^3 (test code = 711-2) 0.16 10*3/uL 0.06-0.53 BASO x10^3 (test code = 704-7) 0.05 10*3/uL 0.01-0.09 Lab Interpretation (test code = 34357-0) Abnormal [facility] GLUCOSE (AUTOMATED)2025-03-14 17:15:02* Test Item Value Reference Range Interpretation Comme nts POCT GLU (test code = 3148391479) 182 mg/dL 70-110 H Lab Interpretation (test cod e = 88054-8) Abnormal [facility] GLUCOSE (AUTOMATED)2025-03-14 16:50:34* Test Item Value Reference Range Interpretation Comme nts POCT GLU (test code = 6671793286) 178 mg/dL 70-110 H Lab Interpretation (test cod e = 13456-2) Abnormal [facility] GLUCOSE (AUTOMATED)2025-03-14 12:49:31* Test Item Value Reference Range Interpretation Comme nts POCT GLU (test code = 3681277032) 125 mg/dL 70-110 H Lab Interpretation (test cod e = 92234-1) Abnormal [facility]. Metabolic Panel (16914)2025-03-14 03:51:41* Test Item Value Reference Range Interpretation Comme nts NA (test code = 1311091865) 135 mmol/L 135-145 K (test code = 9074182741) 5.1 mmol/L 3.5-5.0 H CL (test code = 9997783374) 95 mmol/L 98-108 L CO2 TOTAL (test code = 7310787539) 31 mmol/L 23-31 AGAP (test code = 2550306248) 9 2-16 BUN (test code = 2296235542) 20 mg/dL 7-23 GLUCOSE (test code = 1810017885) 199 mg/dL 70-110 H CREATININE (test code = 2160-0) 5.02 mg/dL 0.60-1.25 H TOTAL BILI (test code = 1981381257) 0.8 mg/dL 0.1-1.1 CALCIUM (test code = 4291139876) 9.7 mg/dL 8.6-10.6 T PROTEIN (test code = 5275968696) 7.8 g/dL 6.3-8.2 ALBUMIN (test code = 9740980643) 4.1 g/dL 3.5-5.0 ALK PHOS (test code = 6691392987) 123 U/L 34-122 H ALTv (test code = 1742-6) 17 U/L 5-50 AST(SGOT) (test code = 8339885559) 26 U/L 13-40 eGFR (test code = 57347-5) 12.9 mL/min/1.73m2 CKD-EPI eGFR (2020). Assuming creatinine has been stable day-to-day for at least three months, the eGFR indicates Category G5 (<= 14mL/min/1.73 m2) Lab Interpretation (test code = 50658-2) Abnormal [facility] GLUCOSE (AUTOMATED)2025-03-13 21:59:03* Test Item Value Reference Range Interpretation Comme nts POCT GLU (test code = 2667835460) 100 mg/dL 70-110 Lab Interpretation (test cod e = 51732-9) Normal [facility] GLUCOSE (AUTOMATED)2025-03-13 16:58:30* Test Item Value Reference Range Interpretation Comme nts POCT GLU (test code = 2876880717) 118 mg/dL 70-110 H Lab Interpretation (test cod e = 12575-1) Abnormal [facility] GLUCOSE (AUTOMATED)2025-03-13 13:01:01* Test Item Value Reference Range Interpretation Comme nts POCT GLU (test code = 0840270264) 92 mg/dL 70-110 Lab Interpretation (test cod e = 08278-3) Normal [facility] with lwvdkse1931-62-76 06:27:10EXAMINATION: IMAGE GUIDED THORACENTESIS HISTORY/INDICATION: Pleural effusion ATTENDING: DR. DOZIER SEDATION: The patient did not require conscious sedation for the procedure. TECHNIQUE: The risks, benefits and alternatives were discussed and informedconsent was obtained. Prior to beginning the procedure, [place] Protocolwas performed to confirm the patient's identity and the planned procedure.Maximum sterile barriers including cap, mask, hand hygiene, sterile gloves,sterile gown, large steriledrape and cutaneous antisepsis were used. The patient's right chest was examined with ultrasound and free flowingpleural fluid was identified. The skin overlying this area was anesthetizedwith 1% lidocaine. Using real-time ultrasound guidance a 5 Nigerien catheterwas advanced into the pleural space. Approximately 700 cc of serous fluid was drained. Samples were sent for laboratory analysis. At the conclusion of the procedure the catheter was removed and a steriledressing applied to the site. ESTIMATED BLOOD LOSS: Minimal. CONDITION: Stable. DISCHARGED TO: Patient care division. FINDINGS: Ultrasound demonstrated a moderate amount of pleural fluid.[facility] GLUCOSE (AUTOMATED)2025-03-13 02:05:31* Test Item Value Reference Range Interpretation Comme [facility] POCT GLU (test code = 9400090558) 126 mg/dL 70-110 H Lab Interpretation (test cod e = 37554-0) Abnormal [facility] Chest 1 [id number] 21:28:27ORDERING PROVIDER: WASHINGTON SMITH HISTORY: s/p thora TECHNIQUE: AP view of the chest COMPARISON: None FINDINGS: Shallow inspiratory volumes. ? Diffuse bilateral interstitial opacities. Nopleural effusion or pneumothorax. ? The cardiac silhouette and pulmonaryvasculature are within normal limits. ?Degenerative changes are seen in thespine and shoulders.[facility] POCT GLUCOSE (AUTOMATED)2025-03-12 21:00:30* Test Item Value Reference Range Interpretation Comme nts POCT GLU (test code = 3201892479) 133 mg/dL 70-110 H Lab Interpretation (test cod e = 14818-4) Abnormal [facility] GLUCOSE (AUTOMATED)2025-03-12 16:52:32* Test Item Value Reference Range Interpretation Comme nts POCT GLU (test code = 0460139619) 144 mg/dL 70-110 H Lab Interpretation (test cod e = 08665-7) Abnormal [facility]POVT GLUCOSE (AUTOMATED)2025-03-12 13:15:01* Test Item Value Reference Range Interpretation Comme [facility] POCT GLU (test code = 0923283269) 138 mg/dL 70-110 H Lab Interpretation (test cod e = 07720-2) Abnormal [facility] without [id number] 12:03:40* Test Item Value Reference Range Interpretation Comme nts WBC (test code = 6690-2) 4.12 4.20-10.70 L RBC (test code = 789-8) 3.8 4.26-5.52 L HGB (test code = 718-7) 10.4 g/dL 12.2-16.4 L HCT (test code = 4544-3) 34.2 % 38.4-49.3 L MCH (test code = 785-6) 27.4 pg 26.1-32.7 MCV (test code = 787-2) 90 fL 81.7-95.6 MCHC (test code = 786-4) 30.4 g/dL 31.2-35.0 L PLT (test code = 777-3) 102 150-328 L MPV (test code = 29093-6) 11.8 fL 9.8-13.0 RDW-CV (test code = 788-0) 14.9 % 12.1-15.4 RDW-SD (test code = 69276-0) 47.3 fL 38.5-51.6 NRBC x10^3 (test code = 3382282991) See_Comment [Automated messa ge] The system which generated this result transmitted reference range: 10*3/?L. The reference range was not used to interpret this result as normal/abnormal. NRBC/100 WBC (test code = 9958801964) 0 0.0-10.0 IPF % (test code = 5858021974) Lab Interpretation (test code = 12089-4) Abnormal [facility] Metabolic Panel (NA, K, CL, CO2, GLUCOSE, BUN, CREATININE, CA)2025-03-12 11:36:15* Test Item Value Reference Range Interpretation Comme nts NA (test code = 7806979102) 137 mmol/L 135-145 K (test code = 9185909736) 5.7 mmol/L 3.5-5.0 H CL (test code = 7060581519) 101 mmol/L 98-108 CO2 TOTAL (test code = 4550220615) 25 mmol/L 23-31 AGAP (test code = 2292264914) 11 2-16 BUN (test code = 8389756866) 43 mg/dL 7-23 H GLUCOSE (test code = 5960951763) 150 mg/dL 70-110 H CREATININE (test code = 2160-0) 8.85 mg/dL 0.60-1.25 H CALCIUM (test code = 3401477605) 8.2 mg/dL 8.6-10.6 L eGFR (test code = 81241-3) 6.5 mL/min/1.73m2 CKD-EPI eGFR (2020). Assuming creatinine has been stable day-to-day for at least three months, the eGFR indicates Category G5 (<= 14mL/min/1.73 m2) Lab Interpretation (test code = 02692-2) Abnormal [facility] AustinMagnesium2025-07-02 11:06:24* Test Item Value Reference Range Interpretation Comme nts MAGNESIUM (test code = 5135482488) 2.2 mg/dL 1.7-2.4 Lab Interpretation (test cod e = 96594-7) Normal [facility] AustinPhosphorus2025-07-02 11:06:09* Test Item Value Reference Range Interpretation Comme nts PHOSPHORUS (test code = 6897474801) 6.4 mg/dL 2.5-5.0 H Lab Interpretation (test cod e = 86894-5) Abnormal [facility] AustinLactate Jmhqzvmkufdfg3958-43-22 11:05:03* Test Item Value Reference Range Interpretation Comme nts LDH (test code = 2847408372) 201 U/L 120-246 Lab Interpretation (test cod e = 40893-6) Normal [facility] AustinPOVT GLUCOSE (AUTOMATED)2025-03-12 01:45:00* Test Item Value Reference Range Interpretation Comme nts POCT GLU (test code = 4015128489) 183 mg/dL 70-110 H Lab Interpretation (test cod e = 28630-2) Abnormal [facility] GLUCOSE (AUTOMATED)2025-03-11 21:56:03* Test Item Value Reference Range Interpretation Comme nts POCT GLU (test code = 0390569989) 103 mg/dL 70-110 Lab Interpretation (test cod e = 03268-7) Normal [facility] GLUCOSE (AUTOMATED)2025-03-11 19:56:05* Test Item Value Reference Range Interpretation Comme nts POCT GLU (test code = 1903110103) 100 mg/dL 70-110 Lab Interpretation (test cod e = 13002-8) Normal [facility] GLUCOSE (AUTOMATED)2025-03-11 18:24:30* Test Item Value Reference Range Interpretation Comme nts POCT GLU (test code = 2744712311) 142 mg/dL 70-110 H Lab Interpretation (test cod e = 11300-6) Abnormal [facility] Thorax wo evxpymnp1644-13-31 17:45:01 PROCEDURE: CT CHEST WITHOUT CONTRAST - CHEST PROTOCOL CLINICAL INDICATION: fall , left chest ?contusion ? Comparison: ?None TECHNIQUE: Volumetric images of the chest were acquired (from lung apicestobases).Images were reconstructed at 2.5 mm slice thickness. MIP axialimages, coronal and sagittal reformats were also submitted forinterpretation. FINDINGS: Devices: None LUNGS AND PLEURA: Moderate right pleural effusion with associatedcompressive atelectasis. The left lung is clear apart from mild basilaratelectasis. No focal opacities are identified. No suspicious nodules. LYMPH NODES: Scattered small lymph nodes in both sides of the mediastinumand hilar regions. No evidence of intrathoraciclymphadenopathy. MEDIASTINUM AND LOWER NECK: No central airway lesions are detected. Theesophagus is within normal limits. The included thyroid gland appearsnormal. HEART AND GREAT VESSELS: The heartis normal in size. Trace pericardialeffusion. The RV to LV is normal. The thoracic aorta is normal in caliber,with Mild atherosclerotic plaque. Moderate atherosclerotic calcificationsof the coronary vessels. The pulmonary trunk is normal in caliber. VISUALIZED UPPER ABDOMEN: Trace perihepatic and perisplenic ascites. OSSEOUS STRUCTURES AND SOFT TISSUES: Superior endplate compressiondeformity at T12. No focal osseous lesions are detected. The soft tissuesappear normal.[facility] AustinN- TERMINAL LJD-[id number] 16:45:09* Test Item Value Reference Range Interpretation Comme nts NT-proBNP (test code = 11201-5) 128163 pg/mL <=125 H ALESIA (test code = ALESIA) Positive: Heart Failure Likely Lab Interpretation (test code = 74037-7) Abnormal [facility] AustinTROPONIN [id number] 15:59:01* Test Item Value Reference Range Interpretation Comme nts TROPONIN I (test code = 7182793693) 0.032 ng/mL <=0.034 ALESIA (test code = ALESIA) [...] of biotin. Lab Interpretation (test code = 77937-8) Normal [facility] AustinCOM. METABOLIC PANEL (05850)2025-03-11 15:52:22* Test Item Value Reference Range Interpretation Comme nts NA (test code = 0188611363) 137 mmol/L 135-145 K (test code = 9681009513) 6.4 mmol/L 3.5-5.0 HH CL (test code = 0776418911) 101 mmol/L 98-108 CO2 TOTAL (test code = 0262858361) 21 mmol/L 23-31 L AGAP (test code = 7269575671) 15 2-16 BUN (test code = 1217961315) 62 mg/dL 7-23 H GLUCOSE (test code = 9419606756) 113 mg/dL 70-110 H CREATININE (test code = 2160-0) 11.89 mg/dL 0.60-1.25 H TOTAL BILI (test code = 3835071469) 0.8 mg/dL 0.1-1.1 CALCIUM (test code = 3929895813) 7.8 mg/dL 8.6-10.6 L T PROTEIN (test code = 5602973621) 7.2 g/dL 6.3-8.2 ALBUMIN (test code = 8695440709) 3.9 g/dL 3.5-5.0 ALK PHOS (test code = 5361618402) 101 U/L 34-122 ALTv (test code = 1742-6) 16 U/L 5-50 AST(SGOT) (test code = 9922674225) 26 U/L 13-40 eGFR (test code = 09326-2) 4.6 mL/min/1.73m2 CKD-EPI eGFR (2020). Assuming creatinine has been stable day-to-day for at least three months, the eGFR indicates Category G5 (<= 14mL/min/1.73 m2) Lab Interpretation (test code = 68479-2) Abnormal [facility] AustinPROTHROMBIN TIME / [id number] 15:51:40* Test Item Value Reference Range Interpretation Comme nts PROTIME PATIENT (test code = 5964-2) 14.3 10.1-12.6 H INR (test code = 6301-6) 1.2 <=4.5 Normal INR <1.1; Warfarin Therapeutic range 2.0 to 3.0 or 2.5 to 3.5, depending upon the indications. Lab Interpretation (test code = 45025-9) [facility] [id number] 15:47:56* Test Item Value Reference Range Interpretation Comme [facility] WBC (test code = 6690-2) 5.97 4.20-10.70 RBC (test code = 789-8) 3.93 4.26-5.52 L HGB (test code = 718-7) 11.1 g/dL 12.2-16.4 L HCT (test code = 4544-3) 35.9 % 38.4-49.3 L MCV (test code = 787-2) 91.3 fL 81.7-95.6 MCH (test code = 785-6) 28.2 pg 26.1-32.7 MCHC (test code = 786-4) 30.9 g/dL 31.2-35.0 L RDW-SD (test code = 25544-2) 48.4 fL 38.5-51.6 RDW-CV (test code = 788-0) 14.6 % 12.1-15.4 PLT (test code = 777-3) 124 150-328 L MPV (test code = 37546-9) 11.8 fL 9.8-13.0 IPF % (test code = 2474135983) 4.7 % 1.2-10.7 Platelet count measured by fluorescence method. NRBC/100 WBC (test code = 0502857328) 0 0.0-10.0 NRBC x10^3 (test code = 4306538706) See_Comment [Automated messa ge] The system which generated this result transmitted reference range: 10*3/?L. The reference range was not used to interpret this result as normal/abnormal. GRAN MAT (NEUT) % (test code = 770-8) 72.2 % IMM GRAN % (test code = 4832299758) 0.5 % LYMPH % (test code = 736-9) 11.4 % MONO % (test code = 5905-5) 9.7 % EOS % (test code = 713-8) 5.4 % BASO % (test code = 706-2) 0.8 % GRAN MAT x10^3(ANC) (test code = 3202192017) 4.31 10*3/uL 1.99-6.95 IMM GRAN x10^3 (test code = 6664340511) 0.03 10*3/uL 0.00-0.06 LYMPH x10^3 (test code = 731-0) 0.68 10*3/uL 1.09-3.23 L MONO x10^3 (test code = 742-7) 0.58 10*3/uL 0.36-1.02 EOS x10^3 (test code = 711-2) 0.32 10*3/uL 0.06-0.53 BASO x10^3 (test code = 704-7) 0.05 10*3/uL 0.01-0.09 Lab Interpretation (test code = 23124-1) Abnormal [facility] GLUCOSE (AUTOMATED)2024-09-08 22:59:48* Test Item Value Reference Range Interpretation Comme nts POCT GLU (test code = 3990135190) 100 mg/dL 70-110 Lab Interpretation (test cod e = 11166-0) Normal [facility] GLUCOSE (AUTOMATED)2024-09-08 17:51:49* Test Item Value Reference Range Interpretation Comme nts POCT GLU (test code = 1248134324) 190 mg/dL 70-110 H Lab Interpretation (test cod e = 54773-5) Abnormal [facility] GLUCOSE (AUTOMATED)2024-09-08 14:28:45* Test Item Value Reference Range Interpretation Comme nts POCT GLU (test code = 1865711240) 101 mg/dL 70-110 Lab Interpretation (test cod e = 69877-3) Normal [facility] Austin[facility]osph[facility]2024[facility]29 07:09:00* Test Item Value Reference Range Interpretation Comme nts PHOSPHORUS (test code = 4590092733) 7.1 mg/dL 2.5-5.0 H Lab Interpretation (test cod e = 74691-0) [facility] Hours After Regular Insulin Ahfinweyckuler5638-61-67 06:04:08* Test Item Value Reference Range Interpretation Comme nts K (test code = 1038343846) 4.6 mmol/L 3.5-5.0 Lab Interpretation (test cod e = 04986-0) Normal [facility] GLUCOSE (AUTOMATED)2024-09-08 04:28:13* Test Item Value Reference Range Interpretation Comme nts POCT GLU (test code = 8735065775) 122 mg/dL 70-110 H Lab Interpretation (test cod e = 42112-3) Abnormal [facility] Glucose (AGE >30 DAYS) - 2 Hours After Regular Insulin Administration [id number] 04:28:00* Test Item Value Reference Range Interpretation Comme nts POCT Glu (age>30days) (test code = 3342) 122 mg/dL 70-110 A Lab Interpretation (test cod e = 68962-5) Abnormal [facility] GLUCOSE (AUTOMATED)2024-09-08 03:59:14* Test Item Value Reference Range Interpretation Comme nts POCT GLU (test code = 9341161623) 135 mg/dL 70-110 H Lab Interpretation (test cod e = 43562-4) Abnormal [facility] Glucose (AGE >30 DAYS) - 1 Hour After Regular Insulin Administration [id number] 03:59:00* Test Item Value Reference Range Interpretation Comme nts POCT Glu (age>30days) (test code = 3342) 135 mg/dL 70-110 A Lab Interpretation (test cod e = 59018-5) Abnormal [facility] GLUCOSE (AUTOMATED)2024-09-08 03:16:46* Test Item Value Reference Range Interpretation Comme nts POCT GLU (test code = 7327155034) 196 mg/dL 70-110 H Lab Interpretation (test cod e = 04741-8) Abnormal [facility] Glucose (AGE >30 DAYS) - Prior to Insulin Bolus Administration - See Kjgdtngk2745-36-76 02:43:00* Test Item Value Reference Range Interpretation Comme nts POCT Glu (age>30days) (test code = 3342) 122 mg/dL 70-110 A Lab Interpretation (test cod e = 69669-1) Abnormal [facility] GLUCOSE (AUTOMATED)2024-09-08 02:42:14* Test Item Value Reference Range Interpretation Comme nts POCT GLU (test code = 6578833230) 122 mg/dL 70-110 H Lab Interpretation (test cod e = 68777-9) Abnormal [facility] 2 [id number] 02:05:44HISTORY: ?chest pain COMPARISON: ?September 15, 2023 FINDINGS: PA and lateral views of the chest show the heart to be normal in size. ?Thelungs are clear. ?No acute osseous abnormality demonstrated.[facility] AustinTROPONIN I 2024-09-08 01:43:30* Test Item Value Reference Range Interpretation Comme nts TROPONIN I (test code = 7260772510) 0.019 ng/mL <=0.034 ALESIA (test code = [...] of biotin. Lab Interpretation (test code = 17760-0) Normal [facility]. METABOLIC PANEL (35860)2024-09-08 01:35:39* Test Item Value Reference Range Interpretation Comme nts NA (test code = 3029487761) 140 mmol/L 135-145 K (test code = 3280037779) 6.2 mmol/L 3.5-5.0 HH CL (test code = 7021512445) 105 mmol/L 98-108 CO2 TOTAL (test code = 0114562433) 21 mmol/L 23-31 L AGAP (test code = 1340381359) 14 2-16 BUN (test code = 3425209979) 77 mg/dL 7-23 H GLUCOSE (test code = 7435997962) 144 mg/dL 70-110 H CREATININE (test code = 2160-0) 10.84 mg/dL 0.60-1.25 H TOTAL BILI (test code = 2537275367) 0.4 mg/dL 0.1-1.1 CALCIUM (test code = 7085056312) 8.3 mg/dL 8.6-10.6 L T PROTEIN (test code = 6862432533) 7.4 g/dL 6.3-8.2 ALBUMIN (test code = 9707816937) 4.2 g/dL 3.5-5.0 ALK PHOS (test code = 5563475157) 57 U/L 34-122 ALTv (test code = 1742-6) 11 U/L 5-50 AST(SGOT) (test code = 9091300943) 21 U/L 13-40 eGFR (test code = 08155-5) 5.1 mL/min/1.73m2 CKD-EPI eGFR (2020). Assuming creatinine has been stable day-to-day for at least three months, the eGFR indicates Category G5 (<= 14mL/min/1.73 m2) Lab Interpretation (test code = 38790-9) Abnormal [facility] AustinMagnesium2024-12-29 01:33:23* Test Item Value Reference Range Interpretation Comme nts MAGNESIUM (test code = 0099409476) 2.6 mg/dL 1.7-2.4 H Lab Interpretation (test cod e = 02695-9) Abnormal [facility] AustinLIPASE, [id number] 01:32:28* Test Item Value Reference Range Interpretation Comme nts LIPASE (test code = 8524922403) 189 U/L 0-220 Lab Interpretation (test cod e = 62960-3) Normal [facility] AustinCBC WITH [id number] 01:13:45* Test Item Value Reference Range Interpretation [...] 31.3 g/dL 31.2-35.0 RDW-SD (test code = 25405-4) 42.3 fL 38.5-51.6 RDW-CV (test code = 788-0) 12.9 % 12.1-15.4 PLT (test code = 777-3) 186 150-328 MPV (test code = 70653-4) 10.9 fL 9.8-13.0 NRBC/100 WBC (test code = 9233177528) 0.0 0.0-10.0 NRBC x10^3 (test code = 5451590941) See_Comment [Automated messa ge] The system which generated this result transmitted reference range: 10*3/?L. The reference range was not used to interpret this result as normal/abnormal. GRAN MAT (NEUT) % (test code = 770-8) 76.8 % IMM GRAN % (test code = 9003666744) 0.30 % LYMPH % (test code = 736-9) 11.1 % MONO % (test code = 5905-5) 7.5 % EOS % (test code = 713-8) 3.6 % BASO % (test code = 706-2) 0.7 % GRAN MAT x10^3(ANC) (test code = 3607746873) 4.70 10*3/uL 1.99-6.95 IMM GRAN x10^3 (test code = 4099147669) 0.00-0.06 LYMPH x10^3 (test code = 731-0) 0.68 10*3/uL 1.09-3.23 L MONO x10^3 (test code = 742-7) 0.46 10*3/uL 0.36-1.02 EOS x10^3 (test code = 711-2) 0.22 10*3/uL 0.06-0.53 BASO x10^3 (test code = 704-7) 0.04 10*3/uL 0.01-0.09 Lab Interpretation (test code = 41010-4) Abnormal [facility] AustinPHYSICIAN [id number] 17:44:44Ordered by an unspecified provider.[facility] AustinIsta [facility] Oimpml7878-73-37 16:53:21* Test Item Value Reference Range Interpretation Comme nts PH (test code = 4713886618) 7.38 7.32-7.42 PCO2 MISAEL (test code = 5720366598) 44 41-51 PO2 MISAEL (test code = 7168482914) 48 25-40 H AC VBE(BEAKER) (test code = 5405705958) 1.0 -3.0-3.0 HCO3 MISAEL (test code = 5030311496) 26 24-28 %O2HB (test code = 7347953057) 82.0 % 95.0-98.0 L NA (test code = 2329492519) 142 mmol/L 135-145 K+ (test code = 3048931953) 4.1 mmol/L 3.5-5.0 AC CA IONZ (test code = 7813756368) 4.40 mg/dL 4.50-5.30 L GLUCOSE (test code = 2998800084) 117 mg/dL 70-110 H AC Hematocrit (test code = 4666565319) 25 40-54 LL THB (test code = 1206367967) 8.5 g/dL 13.5-18.0 L AC TCO2 MISAEL (test code = 5651289711) 27 mmol/L See_Comment [Automated messa ge] The system which generated this result transmitted reference range: 24-29 mmol/L. The reference range was not used to interpret this result as normal/abnormal. Lab Interpretation (test code = 35871-0) Abnormal [facility] AustinNerve Mwldi9664-27-46 12:39:50AlPatrick Nation MD ? ? 02/29/2024 ?7:40 AM Nerve Block Nerve Block Procedure List: AXILLARY APPROACH TOBRACHIAL PLEXUS. Patient Location: HoldingLaterality: LeftSurgical Anesthesia: Post Op Pain: Start Time: 02/29/2024 7:20 AMEnd Time: 02/29/2024 7:40 AMPost Op Pain Management requested bysurgeon per surgical: Progress NoteAnesthesiologist: Patrick Whyte MDPerformed by: walter stmengiologbonPreanesthetic timeout completed prior to procedure: patient identified,IV [...] 20 mLLido 2% 10 mLEPI 1:200K Sed[facility]2024-02-29 12:05:23* Test Item Value Reference Range Interpretation Comme nts POCT GLU (test code = 0296150409) 122 mg/dL 70-110 H Lab Interpretation (test cod e = 60946-8) Abnormal [facility] GLUCOSE (AUTOMATED)2024-02-29 12:05:23* Test Item Value Reference Range Interpretation Comme nts POCT GLU (test code = 7561133355) 122 mg/dL 70-110 H Lab Interpretation (test cod e = 23178-8) [facility] This is a pre-surgical type and screen. ONCE [id number] 12:03:00* Test Item Value Reference Range Interpretation Comme nts ABO & RH (test code = 20) A NEGATIVE IAT (test code = 1185) Negative [facility] AustinType [facility] Screen - This is a pre-surgical type and screen. ONCE [id number] 12:03:00* Test Item Value Reference Range Interpretation Comme nts ABO & RH (test code = 20) A NEGATIVE IAT (test code = 1185) Negative [facility] AustinREFERRAL- REQUEST/[id number] 14:22:20 Ordered by an unspecified provider.[facility] AustinXR CHEST 1 [id number] 16:37:52ORDERING PHYSICIAN: MICHELLE MOSCOSO. HISTORY: confirm CVC [...] seen.[facility] AustinXR CHEST 1 [id number] 16:37:52ORDERING PHYSICIAN: MICHELLE MOSCOSO. HISTORY: confirm CVC placement PACU CXR TECHNIQUE: AP COMPARISON: None. FINDINGS: Lungs: ?A right IJ line terminates at the cavoatrial junction. Diffuseconfluent ground glass opacity and prominence of interstitial markings isnoted. Pleura: ?No effusion or pleural disease is seen. ?No pneumothorax. Mediastinum/Clementine: ?No masses or adenopathy. Heart: ?The heart is not enlarged. Other: ?No acute osseous abnormality is seen.[facility] TIME OR (NON-REPORTABLE)2024-02-02 16:08:10These images do not require a Radiology diagnostic report.[facility] TIME OR (NON-REPORTABLE)2024-02-02 16:08:10These images do not require a Radiology diagnostic report.[facility] Nxxprx1195-18-02 14:34:33* Test Item Value Reference Range Interpretation Comme nts PH (test code = 0022036777) 7.24 7.32-7.42 L PCO2 MISAEL (test code = 1004699918) 37 41-51 L PO2 MISAEL (test code = 0189213380) 41 25-40 H AC VBE(BEAKER) (test code = 1579422569) -12.0 -3.0-3.0 HCO3 MISAEL (test code = 1876309538) 16 24-28 L %O2HB (test code = 6812679016) 68.0 % 95.0-98.0 L NA (test code = 9510885249) 140 mmol/L 135-145 K+ (test code = 6122496451) 4.1 mmol/L 3.5-5.0 AC CA IONZ (test code = 0718895541) 4.40 mg/dL 4.50-5.30 L GLUCOSE (test code = 9894171678) 109 mg/dL 70-110 AC Hematocrit (test code = 5081579071) 22 40-54 LL THB (test code = 2304318534) 7.5 g/dL 13.5-18.0 LL AC TCO2 MISAEL (test code = 9771565050) 17 mmol/L See_Comment L [Automated messa ge] The system which generated this result transmitted reference range: 24-29 mmol/L. The reference range was not used to interpret this result as normal/abnormal. Lab Interpretation (test code = 42001-2) Abnormal [facility] [id number] 14:34:33* Test Item Value Reference Range Interpretation Comme nts PH (test code = 6865211031) 7.24 7.32-7.42 L PCO2 MISAEL (test code = 9409326924) 37 41-51 L PO2 MISAEL (test code = 2777461998) 41 25-40 H AC VBE(BEAKER) (test code = 3999948351) -12.0 -3.0-3.0 HCO3 MISAEL (test code = 1241809423) 16 24-28 L %O2HB (test code = 1505615875) 68.0 % 95.0-98.0 L NA (test code = 9887080413) 140 mmol/L 135-145 K+ (test code = 8991333478) 4.1 mmol/L 3.5-5.0 AC CA IONZ (test code = 1367770760) 4.40 mg/dL 4.50-5.30 L GLUCOSE (test code = 3180739948) 109 mg/dL 70-110 AC Hematocrit (test code = 0069289643) 22 40-54 LL THB (test code = 4511909291) 7.5 g/dL 13.5-18.0 LL AC TCO2 MISAEL (test code = 5195913655) 17 mmol/L See_Comment L [Automated Code [employer]] The system which generated this result transmitted reference range: 24-29 mmol/L. The reference range was not used to interpret this result as normal/abnormal. Lab Interpretation (test code = 09558-6) Abnormal [facility] AustinType and Screen - ONCE [id number] 14:25:00* Test Item Value Reference Range Interpretation Comme nts ABO & RH (test code = 20) A NEGATIVE IAT (test code = 1185) Negative [facility] acute hospital and Screen - ONCE Hsjmrcu4961-54-82 14:25:00* Test Item Value Reference Range Interpretation Comme nts ABO & RH (test code = 20) A NEGATIVE IAT (test code = 1185) Negative [facility] Metabolic Panel (NA, K, CL, CO2, GLUCOSE, BUN, CREATININE, CA)2024-02-02 14:17:45* Test Item Value Reference Range Interpretation Comme nts NA (test code = 4993746519) 138 mmol/L 135-145 K (test code = 8087262679) 4.3 mmol/L 3.5-5.0 CL (test code = 5058861024) 110 mmol/L 98-108 H CO2 TOTAL (test code = 5954142690) 17 mmol/L 23-31 L AGAP (test code = 7180435532) 11 2-16 BUN (test code = 4574618191) 88 mg/dL 7-23 H GLUCOSE (test code = 9615206457) 111 mg/dL 70-110 H CREATININE (test code = 2160-0) 11.26 mg/dL 0.60-1.25 H CALCIUM (test code = 2340591649) 7.3 mg/dL 8.6-10.6 L eGFR (test code = 82140-1) 4.9 mL/min/1.73m2 CKD-EPI eGFR (2020). Assuming creatinine has been stable day-to-day for at least three months, the eGFR indicates Category G5 (<= 14mL/min/1.73 m2) Lab Interpretation (test code = 41676-5) Abnormal [facility] Metabolic Panel (NA, K, CL, CO2, GLUCOSE, BUN, CREATININE, CA)2024-02-02 14:17:45* Test Item Value Reference Range Interpretation Comme [facility] NA (test code = 2633248700) 138 mmol/L 135-145 K (test code = 5291019573) 4.3 mmol/L 3.5-5.0 CL (test code = 8786560091) 110 mmol/L 98-108 H CO2 TOTAL (test code = 0302796055) 17 mmol/L 23-31 L AGAP (test code = 9001434591) 11 2-16 BUN (test code = 6393930777) 88 mg/dL 7-23 H GLUCOSE (test code = 8986697498) 111 mg/dL 70-110 H CREATININE (test code = 2160-0) 11.26 mg/dL 0.60-1.25 H CALCIUM (test code = 6730852130) 7.3 mg/dL 8.6-10.6 L eGFR (test code = 31457-6) 4.9 mL/min/1.73m2 CKD-EPI eGFR (2020). Assuming creatinine has been stable day-to-day for at least three months, the eGFR indicates Category G5 (<= 14mL/min/1.73 m2) Lab Interpretation (test code = 69061-9) Abnormal [facility] GLUCOSE (AUTOMATED)2024-02-02 13:35:23* Test Item Value Reference Range Interpretation Comme [facility] POCT GLU (test code = 8903424740) 127 mg/dL 70-110 H Lab Interpretation (test cod e = 39665-3) Abnormal [facility] GLUCOSE (AUTOMATED)2024-02-02 13:35:23* Test Item Value Reference Range Interpretation Comme [facility] POCT GLU (test code = 4706389271) 127 mg/dL 70-110 H Lab Interpretation (test cod e = 83342-9) Abnormal [facility] AustinREFERRAL- REQUEST/[id number] 16:28:26 Ordered by an unspecified provider.[facility] AustinREFERRAL- REQUEST/[id number] 15:44:04Ordered by an unspecified provider.[facility] AustinREFERRAL- REQUEST/[id number] 21:29:06Ordered by an unspecified provider.[facility] AustinXR CHEST 1 VW 2023-09-16 01:53:52ORDERING PHYSICIAN: HARRY THRASHER CLINICAL HISTORY:shortness of breath TECHNIQUE:AP chest radiograph. COMPARISON:None. FINDINGS:No focal pulmonary consolidation, pleural effusion or pneumothorax. Heartsize within normal limits. Visualized bones are unremarkable.[facility] AustinTroponin [id number] 01:52:31* Test Item Value Reference Range Interpretation Comme [facility] TROPONIN I (test code = 7395929071) 0.028 ng/mL <=0.034 ALESIA (test code = [...] of biotin. Lab Interpretation (test code = 67900-5) Normal [facility] AustinN-Terminal Cot-Dte0787-22-06 01:50:09* Test Item Value Reference Range Interpretation Comme [facility] NT-proBNP (test code = 48157-8) 8290 pg/mL <=125 H ALESIA (test code = ALESIA) Positive: Heart Failure Likely Lab Interpretation (test code = 75891-1) Abnormal [facility] AustinComp. Metabolic Panel (59203)2023-09-16 01:41:29* Test Item Value Reference Range Interpretation Comme nts NA (test code = 3839968227) 138 mmol/L 135-145 K (test code = 5013559190) 4.5 mmol/L 3.5-5.0 CL (test code = 0735969145) 107 mmol/L 98-108 CO2 TOTAL (test code = 3020627631) 14 mmol/L 23-31 L AGAP (test code = 4453806954) 17 2-16 H BUN (test code = 5128302685) 59 mg/dL 7-23 H GLUCOSE (test code = 8571704350) 134 mg/dL 70-110 H CREATININE (test code = 7958945093) 7.17 mg/dL 0.60-1.25 H TOTAL BILI (test code = 7102850172) 0.6 mg/dL 0.1-1.1 CALCIUM (test code = 3697744928) 9.2 mg/dL 8.6-10.6 T PROTEIN (test code = 1803218680) 8.4 g/dL 6.3-8.2 H ALBUMIN (test code = 3060250069) 4.2 g/dL 3.5-5.0 ALK PHOS (test code = 2025519078) 86 U/L 34-122 ALTv (test code = 1742-6) 13 U/L 5-50 AST(SGOT) (test code = 6076772298) 20 U/L 13-40 eGFR (test code = 18899-2) 8.5 mL/min/1.73m2 CKD-EPI eGFR (2020). Assuming creatinine has been stable day-to-day for at least three months, the eGFR indicates Category G5 (<= 14mL/min/1.73 m2) Lab Interpretation (test code = 08139-8) Abnormal [facility] with [id number] 01:03:42* Test Item Value Reference Range Interpretation Comme nts WBC (test code = 6690-2) 5.92 See_Comment [Automated messa ge] The system which [...] 33.3 g/dL 31.2-35.0 RDW-SD (test code = 71052-1) 37.3 fL 38.5-51.6 L RDW-CV (test code = 788-0) 12.5 % 12.1-15.4 PLT (test code = 777-3) 244 See_Comment [Automated Code Scoutsa ge] The system which generated this result transmitted reference range: 150 - 328 10*3/?L. The reference range was not used to interpret this result as normal/abnormal. MPV (test code = 84995-7) 10.5 fL 9.8-13.0 NRBC/100 WBC (test code = 1100746620) 0.0 See_Comment [Automated [employer] ssage] The system which generated this result transmitted reference range: 0.0 - 10.0 /100 WBCs. The reference range was not used to interpret this result as normal/abnormal. NRBC x10^3 (test code = 1914118890) See_Comment [Automated Code [employer]sa ge] The system which generated this result transmitted reference range: 10*3/?L. The reference range was not used to interpret this result as normal/abnormal. GRAN MAT (NEUT) % (test code = 770-8) 67.7 % IMM GRAN % (test code = 4252749750) 0.20 % LYMPH % (test code = 736-9) 21.6 % MONO % (test code = 5905-5) 8.3 % EOS % (test code = 713-8) 1.5 % BASO % (test code = 706-2) 0.7 % GRAN MAT x10^3(ANC) (test code = 2898752778) 4.01 10*3/uL 1.99-6.95 IMM GRAN x10^3 (test code = 5052718561) 0.00-0.06 LYMPH x10^3 (test code = 731-0) 1.28 10*3/uL 1.09-3.23 MONO x10^3 (test code = 742-7) 0.49 10*3/uL 0.36-1.02 EOS x10^3 (test code = 711-2) 0.09 10*3/uL 0.06-0.53 BASO x10^3 (test code = 704-7) 0.04 10*3/uL 0.01-0.09 Lab Interpretation (test code = 09241-1) Abnormal [facility] AustinLamsic Acid Whole Zjfru6083-06-50 00:55:02* Test Item Value Reference Range Interpretation Comme [facility] LACTIC ACID (test code = 6846314150) 1.40 mmol/L 0.50-2.20 Lab Interpretation (test cod e = 24052-1) Normal [facility] AustinPOVT GLUCOSE (AUTOMATED)2023-09-16 00:53:36* Test Item Value Reference Range Interpretation Comme [facility] POCT GLU (test code = 9729513384) 131 mg/dL 70-110 H Lab Interpretation (test cod e = 91248-5) Abnormal [facility] AustinHEMOGLOBIN [id number] 00:00:00* Test Item Value Reference Range Interpretation Comme [facility] A1C (test code = 4548-4) 8.2 HEMOGLOBIN [id number] 00:00:00* Test Item Value Reference Range Interpretation Comme [facility] A1C (test code = 4548-4) 8.7 Lipid Panel w/ Chol/HDL Acfls7617-42-94 00:00:00* Test Item Value Reference Range Interpretation Comme [facility] Cholesterol, Total (test code = 2093-3) 143 mg/dL See_Comment [Automated message] The system which generated this result transmitted reference range: 100-199 mg/dL. The reference range was not used to interpret this result as normal/abnormal. Triglycerides (test code = 2571-8) 152 mg/dL See_Comment H [Automated messa ge] The system which generated this result transmitted reference range: 0-149 mg/dL. The reference range was not used to interpret this result as normal/abnormal. HDL Cholesterol (test code = 2085-9) 32 mg/dL See_Comment L [Automated Dash Hudson] The system which generated this result transmitted reference range: >39 mg/dL. The reference range was not used to interpret this result as normal/abnormal. T. Chol/HDL Ratio (test code = 9830-1) 4.5 ratio See_Comment [Automated [employer]] The system which generated this result transmitted reference range: 0.0-5.0 ratio. The reference range was not used to interpret this result as normal/abnormal. Microalbumin/Creat Ratio, Random [id number] 00:00:00* Test Item Value Reference Range Interpretation Comme nts Creatinine, Urine (test code = 2161-8) 147.5 mg/dL Not Estab. mg/dL Albumin, Urine (test code = 59842-9) 4494.6 ug/mL Not Estab. ug/mL Alb/Creat Ratio (test code = 04233-4) 3047 mg/g creat See_Comment H [Automated [employer] Hudson] The system which generated this result transmitted reference range: 0-29 mg/g creat. The reference range was not used to interpret this result as normal/abnormal. COMP. METABOLIC PANEL (62904)2022-01-06 04:54:06* Test Item Value Reference Range Interpretation Comme nts NA (test code = 2325617223) 138 mmol/L 135-145 K (test code = 3899058131) 4.5 mmol/L 3.5-5.0 CL (test code = 2953777433) 103 mmol/L 98-108 CO2 TOTAL (test code = 2678093953) 26 mmol/L 23-31 AGAP (test code = 4209145300) 2-16 BUN (test code = 3746523668) 33 mg/dL 7-23 H GLUCOSE (test code = 1373083810) 236 mg/dL 70-110 H CREATININE (test code = 9396224661) 1.95 mg/dL 0.60-1.25 H TOTAL BILI (test code = 5112131883) 0.4 mg/dL 0.1-1.1 CALCIUM (test code = 9800052004) 8.7 mg/dL 8.6-10.6 T PROTEIN (test code = 2158694470) 6.9 g/dL 6.3-8.2 ALBUMIN (test code = 1978529562) 3.7 g/dL 3.5-5.0 ALK PHOS (test code = 0418844246) 61 U/L 34-122 ALTv (test code = 1742-6) 28 U/L 5-50 AST(SGOT) (test code = 8794224535) 30 U/L 13-40 eGFR (test code = 3218428216) mL/min/1.73m2 ALESIA (test code = ALESIA) Association [...] imaging tests). Lab Interpretation (test code = 16520-6) Abnormal [facility] WITH [id number] 04:42:08* Test Item Value Reference Range Interpretation [...] 32.8 g/dL 31.2-35.0 RDW-SD (test code = 24111-8) 37.2 fL 38.5-51.6 L RDW-CV (test code = 788-0) 12.4 % 12.1-15.4 PLT (test code = 777-3) See_Comment [Automated Code [employer]] The system which generated this result transmitted reference range: 150 - 328 10*3/?L. The reference range was not used to interpret this result as normal/abnormal. MPV (test code = 54008-5) 10.3 fL 9.8-13.0 NRBC/100 WBC (test code = 5822792381) See_Comment [Automated [employer] ssage] The system which generated this result transmitted reference range: 0.0 - 10.0 /100 WBCs. The reference range was not used to interpret this result as normal/abnormal. NRBC x10^3 (test code = 1922862525) <0.01 See_Comment [Automated messa ge] The system which generated this result transmitted reference range: 10*3/?L. The reference range was not used to interpret this result as normal/abnormal. GRAN MAT (NEUT) % (test code = 770-8) 64.6 % IMM GRAN % (test code = 0500026666) 0.30 % LYMPH % (test code = 736-9) 22.8 % MONO % (test code = 5905-5) 8.0 % EOS % (test code = 713-8) 3.6 % BASO % (test code = 706-2) 0.7 % GRAN MAT x10^3(ANC) (test code = 8802466892) 4.82 10*3/uL 1.99-6.95 IMM GRAN x10^3 (test code = 1084145836) <0.03 0.00-0.06 LYMPH x10^3 (test code = 731-0) 1.70 10*3/uL 1.09-3.23 MONO x10^3 (test code = 742-7) 0.60 10*3/uL 0.36-1.02 EOS x10^3 (test code = 711-2) 0.27 10*3/uL 0.06-0.53 BASO x10^3 (test code = 704-7) 0.05 10*3/uL 0.01-0.09 Lab Interpretation (test code = 67405-9) [facility]UM [id number] 16:12:00 *.*.*.*.*.*.*.*.*.*.*.*.*.*FINAL*.*.*.*.*.*.*.*.*.*.*.*.*.*.*MODIFIED BARIUM SWALLOW HISTORY: 47-year-old male, Gastrografin swallow first and is clear for leak intothe subcutaneous tissue of the neck then follow with a modified barium. TECHNIQUE and FINDINGS: Gastrografin was given first which showed no leak. Barium of varying consistencies of from solid through thin liquid wereadministered to the patient during fluoroscopy. The study was performed with thespeech pathologist. Laryngeal penetration was noted on thin consistency barium. A single episode ofsilent aspiration was noted on thin consistency as well. FADUMO REILLY MBBS ?Personally interpreted by: MIRELA MCCOY MD /Signed/MIRELA MCCOY MDUnTexas [facility] Consult Notes Date/Time Note Provider Source 2025-05-12 13:50:57 Associated Order(s): CONSULT NEPHROLOGY NEPHROLOGY CONSULT NOTE Reason For consult:ESRD on HD TTS Consult By: Medicine CC: Chest pain HPI: Jeevan Ordaz Jr. is a 54 year old male with PMH of ESRD on HD TTS via left AVF, DM, HFrEF, anemia presented as a transfer from [facility] for a cardiac cath to evaluate for ischemia in setting of EF 15-20%. Patient originally presented to the prior facility for chest pain that has been ongoing for a couple of weeks. At that facility, he received HD on Thursday 05/10 in which 3.5 L fluid was removed. He says that he makes minimal urine. Past Medical History: Diagnosis Date Depression Diabetes mellitus Diabetic retinopathy ED (erectile dysfunction) Hyperlipidemia Hypertension Legally blind Past Surgical History: Procedure Laterality Date ARTERIOVENOUS FISTULA CREATION Left 02/29/2024 Surgeon: Andrei Yanes MD; Location: [facility] OR LOCATION DIRECT LARYNGOSCOPY N/A 01/08/2018 Surgeon: Petey Looney MD; Location: [facility] EYE SURGERY INCISION AND DRAINAGE OF ABSCESS Left 01/10/2018 Surgeon: Nitish Bajwa MD; Location: [facility] Location TUNNELED CATHETER (SHX) 02/02/2024 RT IJ tunneled HD catheter Social History Tobacco Use Smoking status: Former Current packs/day: 1.00 Average packs/day: 1 pack/day for 5.0 years (5.0 ttl pk-yrs) Types: Cigarettes Passive exposure: Never Smokeless tobacco: Never Substance Use Topics Alcohol use: Yes Alcohol/week: 12.0 standard drinks [...] Maternal Uncle Hypertension Maternal Uncle Alcohol/Drug Father No Active Allergies ROS A 12 point ROS was done, pertinent positives have been discussed in HPI, and other review of system is negative. Medications: Current Facility-Administered Medications Medication Dose Route Frequency Last Rate Last Admin atorvastatin (LIPITOR) tablet 40 mg 40 mg Oral QHS [START ON 05/13/2025] nirmatrelvir-ritonavir (PAXLOVID) 150 mg (10)- 100 mg (10) tablets 2 tablet 2 tablet Oral DAILY AT 1700 polyethylene glycol 3350 powder 17 g 17 g Oral DAILY 17 g at 05/12/25 1236 ALPRAZolam (XANAX) tablet 0.5 mg 0.5 mg Oral QHSPRN aspirin chewable tablet 81 mg 81 mg Oral DAILY 81 mg at 05/12/25 0912 acetaminophen (TYLENOL) tablet 650 mg 650 mg Oral Q6HPRN acetaminophen-codeine (TYLENOL #3) 300-30 mg tablet 1 tablet 1 tablet Oral Q6HPRN albuterol (VENTOLIN) inhaler 2 puff 2 puff Inhalation Q6HPRN 2 puff at 05/11/25 1106 calcium acetate(phosphat bind) (PHOSLO) capsule 667 mg 667 mg Oral TID MEALS 667 mg at 05/12/25 1236 codeine-guaifenesin (ROBITUSSIN AC) 10-100 mg/5 mL oral solution 10 mL 10 mL Oral Q6HPRN 10 mL at 05/11/25 1449 dextrose 50 % in water (D50W) injection 25 mL 25 mL Slow IV Push PRN glucagon HCL injection 1 mg 1 mg Intramuscular PRN heparin (porcine) injection 5,000 unit 5,000 unit Subcutaneous Q12H 5,000 unit at 05/12/25 0913 heparin 1,000 unit/mL (10 mL) - HD Bolus 2,000 unit Slow IV Push PRN - SEE INSTRUCTIONS 2,000 unit at 05/10/25 1535 heparin 1,000 unit/mL (10 mL) - HD catheter care 1,000 unit Catheter Dwell PRN - SEE INSTRUCTIONS latanoprost (XALATAN) 0.005 % ophthalmic drops 1 drop 1 drop Both Eyes QPM 1 drop at 05/11/25 1705 melatonin (MELATIN) tablet 6 mg 6 mg Oral PRN 6 mg at 05/11/25 1958 metoprolol tartrate (LOPRESSOR) tablet 50 mg 50 mg Oral BID [id number] 50 mg at 05/12/25 0600 mupirocin (BACTROBAN OINT) 2 % oinintment Nasal Q12H ondansetron (ZOFRAN (PF)) injection 4 mg 4 mg Slow IV Push Q6HPRN 4 mg at 05/11/25 2330 pramipexole (MIRAPEX) tablet 0.125 mg 0.125 mg Oral QHS 0.125 mg at 05/11/252107 pregabalin (LYRICA) capsule 25 mg 25 mg Oral DAILY 25 mg at 05/12/25 0912 Sliding Scale Insulin - Lispro (HumaLOG) Subcutaneous TID MEALS+HS 2 unit at 05/12/25 1235 Physical Exam BP: (104-141)/(63-85) MAP (mmHg): [77-101] Temp: [35.8 ?C (96.5 ?F)-36.6 ?C (97.8 ?F)] Temp source: Tympanic (05/11 1951) Pulse: [69-82] Resp: [15-31] SpO2: [94 %-100 %] Height: -- Weight: [85.4 kg (188 lb 6 oz)] BMI (calculated): [28.64] Wt Readings from Last 3 Encounters: 05/11/25 85.4 kg (188 lb 6 oz) 03/20/25 79.4 kg (175 lb) 03/14/25 76 kg (167 lb 8.8 oz) General: Not in acute distress Cardiovascular: Heart regular, rate, rhythm, no murmurs Respiratory: Clear to auscultation, no respiratory distress GI: Abdomen soft, non-tender to palpation, non-distended, tolerating PO intake MS/Extremities: no Edema Neuro: AOx3, answering questions appropriately, following commands, moving all extremities spontaneously, no asterixis. Skin: No rash, warm and dry Psych: cooperative, appropriate mood and affect. Dialysis Access: Left AVF Intake/Output Summary (Last 24 hours) at 05/12/2025 1351 Last data filed at 05/11/2025 1700 Gross per 24 hour Intake 250 ml Output -- Net 250 ml No results found. Assessment and Plan: # ESRD on hemodialysis Schedule: TTS Access: Left AVF EDW: Unknown Plan: - HD tomorrow for metabolic clearance and volume maintenance - Renally dose medications # Vascular access for dialysis for ESRD Comment: - Left AVF #Secondary hyperparathyroidism (of renal origin) # Hyperphosphatemia Comment: - Phos normal Plan: - Obtain PTH level - care home Phos goal < 5 #Anemia in chronic kidney disease Plan: - Repeat iron panel and ferritin - replete with IV iron if deficient (goal FeSat >20%, Ferritin > 200) - Will plan for EPO with HD if iron stores adequate - care home Hg goal 10-11 Patient seen, examined, and discussed with attending newspaper press operator apprentice, Dr. Dueñas. Lazaro Pace MD Nephrology and Hypertension Fellow, PGY-4 Cosigned by Spenser Dueñas MD at 05/12/2025 10:14 PM CDT Associated attestation - Spenser Dueñas MD - 05/12/2025 10:14 PM CDT I personally examined the patient on 05/12/2025 22:06 and agree with Lazaro Amaya 's fellow note as written . I actively participated in the decision-making process. Please see the fellow's note for additional details. NEPHROLOGY [facility] 2025-05-10 10:12:57 Associated Order(s): DISCHARGE FOLLOW-UP: PRIMARY CARE PHYSICIAN (PCP); CONSULT NEPHROLOGY Nephrology Consult Admit Date: 05/10/2025 PCP: Pham Cole Referring Physician: Martell Gandhi MD Reason for Referral: ESRD Admitting Dx: Chest pain in adult [R07.9] NSTEMI (non-ST elevated myocardial infarction) [I21.4] CHIEF COMPLAINT: Shortness of Breath and Chest Pain HISTORY OF PRESENT ILLNESS: Jeevan Ordaz Jr. is a 54 year old male that presented to the ER with dyspnea and chest pain. This is a patient with a history of congestive heart failure and diabetes presenting with chest pain and shortness of breath. The patient reports experiencing chest pain and difficulty breathing, which began around 9:30 or 10:00 on 05/10/2025. The chest pain is accompanied by shortness of breath. The patient asked his son to bring him to the emergency room due to these symptoms. He also mentions a mild cough and congestion, with expectoration of white mucus. The patient is currently undergoing dialysis and has a history of diabetes, with blood sugar levels ranging from 98 to 120 since starting dialysis. He has been experiencing swelling in both legs for approximately a month, which he attributes to fluid accumulation due to limited mobility. This condition led to a hospital admission a week ago. 54-year-old male comes the ER for evaluation of chest pain and shortness of breath that started at 10:00 today. Dialysis Monday. Patient missed dialysis on but he went to dialysis yesterday and he is also scheduled to go to dialysis today at 9:00 ROS as stated above. All other ROS negative. Temp: [35.7 ?C (96.2 ?F)-36.6 ?C (97.8 ?F)] Heart Rate (monitor): [82-108] Pulse: [82-116] Resp: [11-30] BP: (135-157)/(80-97) MAP (mmHg): [96-107] PE: Gen: NAD HEENT: NCAT. MMM. Neck: Supple. No LAD. Lungs: Normal respiratory effort CVS: RRR Abd: Soft. NT. +BS Ext: No C/C. LE Edema 2-3+ Skin: No rash Psych: AAO Neuro: Normal speech ASSESSMENT/PLAN Jeevan Ordaz Jr. is a 54 year old male admitted to the hospital for 0 days with The primary encounter diagnosis was Chest pain in adult. Diagnoses of Shortness of breath, COVID-19, and Elevated troponin were also pertinent to this visit. Continue current POC and Medications other than the changes listed. AM labs as ordered. Daily weight recommended. ESRD on HD -Acute HD ordered HTN with CKD/ CHF -Continue Metoprolol Systolic Diastolic CHF, A/C LVH Peripheral Edema -Low sodium diet -UF with HD DM II with CKD, Polyneuropathy and Peripheral Angiopathy -Continue Gabapentin -JENNIFER Anemia in CKD -Retacrit prn CKD MBD Secondary HyperParathyroidism -Continue Phoslo Case reviewed with Dr. Cueva Thank you kindly for the consultation. Vitals: 05/10/25 0700 05/10/25 0800 05/10/25 0810 05/10/25 0900 BP: (!) 148/88 138/80 BP Location: Pulse: 87 82 83 Resp: 24 22 17 Temp: 35.7 ?C (96.2 ?F) TempSrc: Temporal Artery Tympanic Tympanic SpO2: 100% 99% 97% Weight: Height: LABS - reviewed in the chart: CBC BMP PT/INR WBC (10*3/?L) Date Value 05/10/2025 6.86 NA (mmol/L) Date Value 05/10/2025 141 No results found for: "PT" RBC (10*6/?L) Date Value 05/10/2025 3.70 (L) K (mmol/L) Date Value 05/10/2025 3.9 INR (no units) Date Value 05/05/2025 1.2 PLT (10*3/?L) Date Value 05/10/2025 161 CALCIUM (mg/dL) Date Value 05/10/2025 8.1 (L) HGB (g/dL) Date Value 05/10/2025 10.7 (L) CL (mmol/L) Date Value 05/10/2025 98 aPTT HCT (%) Date Value 05/10/2025 35.0 (L) BUN (mg/dL) Date Value 05/10/2025 35 (H) APTT Patient (Seconds) Date Value 12/15/2020 27 CREATININE (mg/dL) Date Value 05/10/2025 5.09 (H) IMAGING - reviewed in the chart: Hospital Encounter on 05/10/25 XR Chest 1 VW Narrative Ordering physician: JULIAN MORALES Indication: STEMI Comparison: Chest dated 03/20/2025 Technical quality: Adequate Findings: Single AP view of the chest. The cardiopericardial silhouette is mildly enlarged. The lungs are clear bilaterally. The visualized bony thorax is intact. Impression Impression: Mild cardiomegaly without radiographic evidence for acute pulmonary process. END REPORT RL: [id number] AFC: [id number] MEDICAL HISTORY Past Medical History: Diagnosis Date Depression Diabetes mellitus Diabetic retinopathy ED (erectile dysfunction) Hyperlipidemia Hypertension Legally blind Past Surgical History: Procedure Laterality Date ARTERIOVENOUS FISTULA CREATION Left 02/29/2024 Surgeon: Andrei Yanes MD; Location: [facility] DIRECT LARYNGOSCOPY N/A 01/08/2018 Surgeon: Petey Looney MD; Location: [facility] EYE SURGERY INCISION AND DRAINAGE OF ABSCESS Left 01/10/2018 Surgeon: Nitish Bajwa MD; Location: [facility] TUNNELED CATHETER (SHX) 02/02/2024 RT IJ tunneled HD catheter ALLERGIES No Active Allergies MEDICATIONS reviewed in the chart. Current Facility-Administered Medications Medication Dose Route Frequency Last Rate Last Admin acetaminophen (TYLENOL) tablet 650 mg 650 mg Oral Q6HPRN acetaminophen-codeine (TYLENOL #3) 300-30 mg tablet 1 tablet 1 tablet Oral Q6HPRN albuterol (VENTOLIN) inhaler 2 puff 2 puff Inhalation Q6HPRN codeine-guaifenesin (ROBITUSSIN AC) 10-100 mg/5 mL oral solution 10 mL 10 mL Oral Q6HPRN dexamethasone (DECADRON PHOSPHATE) 4 mg/mL injection 6 mg 6 mg Slow IV Push DAILY FENTanyl (PF) (SUBLIMAZE) injection 12.5 mcg 12.5 mcg Slow IV Push Q6HPRN heparin (porcine) injection 5,000 unit 5,000 unit Subcutaneous Q12H 5,000 unit at 05/10/25 0800 heparin 1,000 unit/mL (10 mL) - HD Bolus 2,000 unit Slow IV Push PRN - SEE INSTRUCTIONS heparin 1,000 unit/mL (10 mL) - HD catheter care 1,000 unit Catheter Dwell PRN - SEE INSTRUCTIONS metoprolol tartrate (LOPRESSOR) tablet 50 mg 50 mg Oral BID [id number] 50 mg at 05/10/25 0620 mupirocin (BACTROBAN OINT) 2 % oinintment Nasal Q12H ondansetron (ZOFRAN (PF)) injection 4 mg 4 mg Slow IV Push Q6HPRN SOCIAL HISTORY Social History Socioeconomic History Marital status: Spouse name: Zohra Number of children: 5 Highest education level: 8th grade Occupational History Occupation: Disabled Tobacco Use Smoking status: Former Current packs/day: 1.00 Average packs/day: 1 pack/day for 5.0 years (5.0 ttl pk-yrs) Types: Cigarettes Passive exposure: Never Smokeless tobacco: Never Substance and Sexual Activity Alcohol use: Yes Alcohol/week: 12.0 standard drinks of alcohol Types: 12 Cans of beer per week Comment: was drinking daily, now a couple days a week Drug use: Yes Types: Marijuana, Cocaine Comment: smoked majuriuana and did cocaine in 20s but not anymore Social Drivers of Health Food Insecurity: No Food Insecurity (03/11/2025) NCSS - Food Insecurity Worried About Running Out of Food in the Last Year: No Ran Out of Food in the Last Year: No Transportation Needs: No Transportation Needs (03/11/2025) NCSS - Transportation Lack of Transportation: No Housing Stability: Not At Risk (03/11/2025) NCSS - Housing/Utilities Has Housing: Yes Worried About Losing Housing: No Unable to Get Utilities: No FAMILY History Family History Problem Relation Age of Onset Diabetes Mother Hypertension Mother Stroke Mother Diabetes Maternal Grandmother Hypertension Maternal Grandmother Diabetes Maternal Aunt Hypertension Maternal Aunt Diabetes Maternal Uncle Hypertension Maternal Uncle Alcohol/Drug Father IM-NEPHROLOGY STAFF [facility] 2025-05-10 08:17:44 Associated Order(s): CONSULT CARDIOLOGY [facility] Cardiology Consult Note Patient: Jeevan Ordaz Jr. Date of : 1970 Date of service: 05/10/2025 Primary Care Physician: Jeremiah Crawford CHIEF COMPLAINT: Chief Complaint Patient presents with Shortness of Breath Chest Pain HISTORY OF PRESENT ILLNESS: Jeevan Ordaz Jr. is a 54 year old male presented to the ER for evaluation for shortness of breath and chest pain. History from patient/family member. Pertinent cardiac related history reviewed from chart History of Present Illness The patient is a 54-year-old male who presented to the ER on 05/10/2025 for evaluation of chest pain and shortness of breath. He experienced persistent chest pain around 9:30 or 10:00 in the morning, accompanied by shortness of breath, prompting him to seek immediate medical attention. He was found to be COVID-19 positive. Cardiology was consulted due to mildly elevated troponin levels and worsening shortness of breath. His last cardiology consultation was during a hospital admission over the March, where he was advised to undergo a Lexiscan and follow up for ischemic evaluation. However, he has not yet followed up on this recommendation. He reports compliance with his medication regimen. He continues to experience bilateral leg swelling, which has been ongoing for the past 3 to 4 weeks. He has been undergoing dialysis at least four times a week for aggressive volume control but missed his session on . 03.14.2025 The patient is a 54-year-old male who presented to the hospital for shortness of breath and hyperkalemia in the setting of end-stage renal disease (ESRD). Cardiology was consulted due to mildly reduced left ventricular (LV) systolic function noted in a previous echocardiogram and the presence of peripheral vascular disease (PVD) in a recent bilateral lower extremity Doppler. Cardiac risk factors include ESRD on dialysis for the last 9 months, hypertension, dyslipidemia, PVD, type 2 diabetes mellitus, and ongoing tobacco use. He reported dyspnea on exertion (IBRAHIM), classified as NYHA class II-III, which has improved with adequate dialysis. He also experienced numbness in both lower extremities, prompting an arterial venous Doppler study that confirmed underlying PVD. He reports no history of exertional chest pain. His IBRAHIM improved with adequate dialysis. PAST MEDICAL HISTORY Past Medical History: Diagnosis Date Depression Diabetes mellitus Diabetic retinopathy ED (erectile dysfunction) Hyperlipidemia Hypertension Legally blind Past Surgical History: Procedure Laterality Date ARTERIOVENOUS FISTULA CREATION Left 02/29/2024 Surgeon: Andrei Yanes MD; Location: [facility] OR LOCATION DIRECT LARYNGOSCOPY N/A 01/08/2018 Surgeon: Petey Looney MD; Location: [facility] Location EYE SURGERY INCISION AND DRAINAGE OF ABSCESS Left 01/10/2018 Surgeon: Nitish Bajwa MD; Location: [facility] Location TUNNELED CATHETER (SHX) 02/02/2024 RT IJ tunneled HD catheter Family History Problem Relation Age of Onset Diabetes Mother Hypertension Mother Stroke Mother Diabetes Maternal Grandmother Hypertension Maternal Grandmother Diabetes Maternal Aunt Hypertension Maternal Aunt Diabetes Maternal Uncle Hypertension Maternal Uncle Alcohol/Drug Father SOCIAL HISTORY Social History Socioeconomic History Marital status: Spouse name: Zohra Number of children: 5 Highest education level: 8th grade Occupational History Occupation: Disabled Tobacco Use Smoking status: Former Current packs/day: 1.00 Average packs/day: 1 pack/day for 5.0 years (5.0 ttl pk-yrs) Types: Cigarettes Passive exposure: Never Smokeless tobacco: Never Substance and Sexual Activity Alcohol use: Yes Alcohol/week: 12.0 standard drinks of alcohol Types: 12 Cans of beer per week Comment: was drinking daily, now a couple days a week Drug use: Yes Types: Marijuana, Cocaine Comment: smoked majuriuana and did cocaine in 20s but not anymore Social Drivers of Health Food Insecurity: No Food Insecurity (03/11/2025) NCSS - Food Insecurity Worried About Running Out of Food in the Last Year: No Ran Out of Food in the Last Year: No Transportation Needs: No Transportation Needs (03/11/2025) NCSS - Transportation Lack of Transportation: No Housing Stability: Not At Risk (03/11/2025) NCSS - Housing/Utilities Has Housing: Yes Worried About Losing Housing: No Unable to Get Utilities: No ALLERGIES No Active Allergies MEDICATIONS Current Discharge Medication List STOP taking these medications insulin lispro, human, 100 unit/mL injection Comments: Reason for Stopping: melatonin 3 mg tablet Comments: Reason for Stopping: amitriptyline 25 mg tablet Comments: Reason for Stopping: desloratadine 5 mg tablet Comments: Reason for Stopping: fluticasone propionate 50 mcg/actuation nasal spray Comments: Reason for Stopping: gabapentin 100 mg capsule Comments: Reason for Stopping: pramipexole 0.125 mg tablet Comments: Reason for Stopping: pregabalin 25 mg capsule Comments: Reason for Stopping: methocarbamoL 500 mg tablet Comments: Reason for Stopping: calcium acetate,phosphat bind, 667 mg capsule Comments: Reason for Stopping: latanoprost 0.005 % ophthalmic drops Comments: Reason for Stopping: sodium bicarbonate 650 mg tablet Comments: Reason for Stopping: lancets (FREESTYLE LANCETS) 28 gauge Misc Comments: Reason for Stopping: blood sugar diagnostic strip Comments: Reason for Stopping: Blood-Glucose Meter Kit Comments: Reason for Stopping: atorvastatin 20 mg tablet Comments: Reason for Stopping: Current Facility-Administered Medications: acetaminophen (TYLENOL) tablet 650 mg, 650 mg, Oral, Q6HPRBeth, Martell Gandhi MD acetaminophen-codeine (TYLENOL #3) 300-30 mg tablet 1 tablet, 1 tablet, Oral, Q6HPJOAN, Martell Gandhi MD albuterol (VENTOLIN) inhaler 2 puff, 2 puff, Inhalation, Q6HPRN, Martell Gandhi MD codeine-guaifenesin (ROBITUSSIN AC) 10-100 mg/5 mL oral solution 10 mL, 10 mL, Oral, Q6HPRN, Martell Gandhi MD dexamethasone (DECADRON PHOSPHATE) 4 mg/mL injection 6 mg, 6 mg, Slow IV Push, DAILY, Martell Gandhi MD FENTanyl (PF) (SUBLIMAZE) injection 12.5 mcg, 12.5 mcg, Slow IV Push, Q6HPRN, Martell Gandhi MD heparin (porcine) injection 5,000 unit, 5,000 unit, Subcutaneous, Q12H, Martell Gandhi MD, 5,000 unit at 05/10/25 0800 metoprolol tartrate (LOPRESSOR) tablet 50 mg, 50 mg, Oral, BID [id number], Martell Gandhi MD, 50 mg at 05/10/25 0620 ondansetron (ZOFRAN (PF)) injection 4 mg, 4 mg, Slow IV Push, Q6HPRN, Martell Gandhi MD REVIEW OF SYSTEMS: Comprehensive 10-system review was conducted and were negative except for what's noted in the HPI. The following systems were reviewed: Constitutional, cardiovascular, respiratory, gastrointestinal, genitourinary, musculoskeletal, neurologic, psychiatric, endocrinological, and hematological. PHYSICAL EXAMINATION: Vitals: 05/10/25 0518 05/10/25 0521 05/10/25 0604 05/10/25 0700 BP: (!) 150/88 (!) 144/87 (!) 148/88 BP Location: Right arm Pulse: 108 96 90 87 Resp: 24 Temp: 36.2 ?C (97.1 ?F) TempSrc: Oral Temporal Artery SpO2: 100% 100% 100% 100% Weight: 83.9 kg (185 lb) Height: 1.727 m (5' 8") General: no apparent distress HEENT: normocephalic atraumatic Neck: supple, no lymphadenopathy, no bruits, no JVD Lungs: clear to auscultation bilaterally. No wheezes or rhonchi. No increased work of breathing. Cardio: Regular rate and rhythm, S1&S2 normal, no murmurs, rubs or gallops Abdomen: soft; non-tender; non-distended; normoactive bowel sounds. : not examined Rectal: not examined Extremities: no clubbing, cyanosis. +edema. Skin: no rashes, no visible lesions. Neuro: no gross focal deficits LABS - Reviewed pertinent labs as below: CBC BMP PT/INR WBC (10*3/?L) Date Value 05/10/2025 6.86 NA (mmol/L) Date Value 05/10/2025 141 No results found for: "PT" PLT (10*3/?L) Date Value 05/10/2025 161 K (mmol/L) Date Value 05/10/2025 3.9 INR (no units) Date Value 05/05/2025 1.2 HGB (g/dL) Date Value 05/10/2025 10.7 (L) BUN (mg/dL) Date Value 05/10/2025 35 (H) HCT (%) Date Value 05/10/2025 35.0 (L) CREATININE (mg/dL) Date Value 05/10/2025 5.09 (H) LIPID PROFILE GLUCOSE (mg/dL) Date Value 05/10/2025 118 (H) CHOL (mg/dL) Date Value 03/04/2021 139 TSH LDL CHOL (mg/dL) Date Value 03/04/2021 86 TSH (mIU/L) Date Value 09/08/2024 2.18 CARDIAC ENZYMES HDL (mg/dL) Date Value 03/04/2021 33 (L) CK (U/L) Date Value 06/25/2015 62 TRIG (mg/dL) Date Value 03/04/2021 102 LFTs CK-MB (ng/mL) Date Value 06/25/2015 0.54 AST(SGOT) (U/L) Date Value 05/10/2025 30 TROPONIN I (ng/mL) Date Value 05/10/2025 0.041 (H) ALT(SGPT) (U/L) Date Value 01/13/2018 36 ALTv (U/L) Date Value 05/10/2025 15 No results found for: "BNP" LDL CHOL (mg/dL) Date Value 03/04/2021 86 Recent Labs 05/10/25 0511 TROPNI 0.041* There are no current results on file for these tests and/or test for 1 year. LDL CHOL (mg/dL) Date Value 03/04/2021 86 NT-proBNP (pg/mL) Date Value 05/10/2025 125,000 (H) ASSESSMENT/PLAN Principal Problem: Chest pain in adult Active Problems: Hypertension Mixed hyperlipidemia Erectile dysfunction Shortness of breath End stage renal disease Anemia of chronic disease Coronary artery calcification seen on CT scan Type 2 diabetes mellitus with proliferative diabetic retinopathy with macular edema, unspecified eye CKD (chronic kidney disease) stage 5, GFR less than 15 ml/min ESRD (end stage renal disease) PAD (peripheral artery disease) COVID-19 Elevated troponin Elevated brain natriuretic peptide (BNP) level Results Imaging - Bilateral lower extremity Doppler: Presence of a calcified plaque noted across the right lower extremity with no flow detected in the distal anterior tibial and dorsalis pedis artery. On the left, calcified plaque formation throughout the left arterial system with no flow detected in the mid peroneal/distal anterior tibial and dorsalis pedis artery - Echocardiogram: 02/20/2024, Mild global hypokinesis, mildly reduced LV systolic function, 45 to 50%, normal RV size and function, no significant valve abnormalities are noted - Chest x-ray: 03/12/2025, No significant heart failure pattern noted - CT thorax: 03/11/2025, Right-sided moderate perfusion, a trace pericardial effusion noted. No heart failure pattern noted in the lung dominguez Diagnostic Testing - EK03/11/2025, Sinus rhythm, narrow QRS complex, nonspecific ST-T changes noted Labs - Hemoglobin: 05/10/2025, 10.7 g/dL - Platelet count: 05/10/2025, 161 x10 9 /L - Creatinine: 05/10/2025, 5.09 mg/dL - Potassium: 05/10/2025, 3.9 mmol/L - Troponin: 05/10/2025, 0.051 ng/mL - NT-proBNP: 05/10/2025, 60089 pg/mL Imaging - Chest x-ray: 05/10/2025, Cardiomegaly with no evidence of any heart failure pattern noted Diagnostic Testing - EK05/10/2025, Sinus tachycardia, narrow QRS complex, nonspecific ST-T changes noted Assessment & Plan COVID-19 infection: Treatment and workup as per the primary team. Elevated troponins: Troponin levels are mildly elevated in the indeterminate range, possibly due to underlying chronic kidney disease (CKD). Given his significant cardiovascular risk factors, serial troponins x2 and a repeat echocardiogram are recommended for tomorrow morning. If the echocardiogram reveals left ventricular (LV) dysfunction, an invasive coronary angiogram is strongly recommended. If the echocardiogram shows a similar ejection fraction (EF) to the previous one in 2023, an outpatient ischemic evaluation, including Lexiscan and stress test, is recommended after follow-up with the primary cardiology team. Continue with aspirin 81 mg daily. Recent Labs 05/10/25 0152 05/10/25 0511 TROPNI 0.051* 0.041* Dyspnea on exertion (IBRAHIM), NYHA class II-III: - Volume control as per dialysis team Cardiac risk factors include ESRD on dialysis for the last 9 months, hypertension, dyslipidemia, PVD, type 2 diabetes mellitus, and ongoing tobacco use. Given his significant cardiovascular risk factors, serial troponins x2 and a repeat echocardiogram are recommended for tomorrow morning. If the echocardiogram reveals left ventricular (LV) dysfunction, an invasive coronary angiogram is strongly recommended. If the echocardiogram shows a similar ejection fraction (EF) to the previous one in 2023, an outpatient ischemic evaluation, including Lexiscan and stress test, is recommended after follow-up with the primary cardiology team. - Follow up with primary cardiology team for further cardiac evaluation to discuss regarding Invasive coronary angiogram recommended or Stress test to assess for underlying obstructive coronary artery disease NT-proBNP (pg/mL) Date Value 05/10/2025 125,000 (H) Peripheral arterial disease (PAD): - Bilateral PAD noted - No evidence of rest pain or critical limb ischemia - Follow up with vascular surgery as outpatient for consultation and further intervention End-stage renal disease (ESRD) on dialysis: - Follows nephrology team Bilateral leg swelling: He reports bilateral leg swelling for the last 3 to 4 weeks. This is likely due to volume overload. He has been undergoing dialysis at least four times a week for aggressive volume control but missed dialysis on . An echocardiogram is planned for tomorrow morning. Serial troponins and aggressive volume control as per the dialysis team are recommended. Dyslipidemia: - Goal LDL <70 - Currently on Lipitor 20 mg daily. Recommend to increase lipitor 40 mg daily. LDL CHOL (mg/dL) Date Value 03/04/2021 86 Type 2 diabetes mellitus: - Treatment/workup with primary team Last Two A1C Results ([facility]/, POCT, [facility]) Recent Labs 03/13/25 0357 HGBA1C 6.6* Hypertension: His hypertension is stable. He is currently on Lopressor 50 mg twice daily. The home dose of amlodipine 10 mg is on hold. - Goal blood pressure <130/80 - Treatment plan as per nephrology team Treatment plan discussed with the patient and family member at bedside. Total Visit Time: 60 mins The total Visit time for today's visit with Jeevan Ordaz JrGerald encompassed 60 minutes. Time was spent reviewing the chart before, during and after the visit, reviewing laboratory results, taking interval history, performing the documented physical examination, completing and "cleaning up" the electronic medical record as well as addressing any questions and concerns. The time spent for patient care includes: PreCharting (eg, review of tests, notes, etc.), Obtaining and/or reviewing separately obtained history (Care Everywhere or paper records), Counseling and educating the patient/family/caregiver, Ordering medications, tests, or procedures, Ordering referrals and/or communicating with other health healthcare or medical (when not separately reported), Documenting clinical information in the electronic or other health record, and Independently interpreting results (not separately reported) and/or communicating results to the patient/family/caregiver, and personally reviewing cardiac imaging, ECG, tele monitor. This report was dictated using Copier How To and is subject to voice recognition errors. Please excuse any unusual inaccuracies. My diagnostic impression and treatment plans were discussed at length with the patient and family member present. All side effects as well as drug-drug interactions and risks discussed at length. Ample opportunity was offered and encouraged to ask questions during this visit and patient appreciated the answers given by me and verbzalised statisfcation in the answers given. Thank you for allowing us to participate in the care of Jeevan Kennyashlye Llanos. If you have any questions or concerns please feel free to call our office at [phone]. I would be happy to be of further assistance for Jeevan Ordaz Jr. wellbeing. Voice recognition software has been used to create portions of this document. An attempt to proofread has been made to minimize errors. Please do not hesitate to call with any questions. Frederick Sebastian MD 05/10/2025 8:18 AM Paper Conservator, Division of Cardiology [facility] 2025-03-14 11:09:46 Associated Order(s): CONSULT CARDIOLOGY [facility] Cardiology Consult Note Patient: Jeevan Ordaz Jr. Date of : 1970 Date of service: 03/14/2025 Primary Care Physician: Jeremiah Crawford CHIEF COMPLAINT: Chief Complaint Patient presents with Fall HISTORY OF PRESENT ILLNESS: Jeevan Ordaz Jr. is a 54 year old male presented to the ER for evaluation for shortness of breath and hyperkalemia History from patient/family member. Pertinent cardiac related history reviewed from chart History of Present Illness The patient is a 54-year-old male who presented to the hospital for shortness of breath and hyperkalemia in the setting of end-stage renal disease (ESRD). Cardiology was consulted due to mildly reduced left ventricular (LV) systolic function noted in a previous echocardiogram and the presence of peripheral vascular disease (PVD) in a recent bilateral lower extremity Doppler. Cardiac risk factors include ESRD on dialysis for the last 9 months, hypertension, dyslipidemia, PVD, type 2 diabetes mellitus, and ongoing tobacco use. He reported dyspnea on exertion (IBRAHIM), classified as NYHA class II-III, which has improved with adequate dialysis. He also experienced numbness in both lower extremities, prompting an arterial venous Doppler study that confirmed underlying PVD. He reports no history of exertional chest pain. His IBRAHIM improved with adequate dialysis. SOCIAL HISTORY Tobacco: The patient reports ongoing tobacco use. PAST MEDICAL HISTORY Past Medical History: Diagnosis Date Depression Diabetes mellitus Diabetic retinopathy ED (erectile dysfunction) Hyperlipidemia Hypertension Legally blind Past Surgical History: Procedure Laterality Date ARTERIOVENOUS FISTULA CREATION Left 02/29/2024 Surgeon: Andrei Yanes MD; Location: [facility] OR LOCATION DIRECT LARYNGOSCOPY N/A 01/08/2018 Surgeon: Petey Looney MD; Location: [facility] Location EYE SURGERY INCISION AND DRAINAGE OF ABSCESS Left 01/10/2018 Surgeon: Nitish Bajwa MD; Location: [facility] Location TUNNELED CATHETER ([facility]X) 02/02/2024 RT IJ tunneled HD catheter Family History Problem Relation Age of Onset Diabetes Mother Hypertension Mother Stroke Mother Diabetes Maternal Grandmother Hypertension Maternal Grandmother Diabetes Maternal Aunt Hypertension Maternal Aunt Diabetes Maternal Uncle Hypertension Maternal Uncle Alcohol/Drug Father SOCIAL HISTORY Social History Socioeconomic History Marital status: Spouse name: Zohra Number of children: 5 Highest education level: 8th grade Occupational History Occupation: Disabled Tobacco Use Smoking status: Some Days Current packs/day: 1.00 Average packs/day: 1 pack/day for 5.0 years (5.0 ttl pk-yrs) Types: Cigarettes Passive exposure: Never Smokeless tobacco: Never Substance and Sexual Activity Alcohol use: Yes Alcohol/week: 12.0 standard drinks of alcohol Types: 12 Cans of beer per week Comment: was drinking daily, now a couple days a week Drug use: Yes Types: Marijuana, Cocaine Comment: smoked majuriuana and did cocaine in 20s but not anymore Social Drivers of Health Food Insecurity: No Food Insecurity (03/11/2025) NCSS - Food Insecurity Worried About Running Out of Food in the Last Year: No Ran Out of Food in the Last Year: No Transportation Needs: No Transportation Needs (03/11/2025) NCSS - Transportation Lack of Transportation: No Housing Stability: Not At Risk (03/11/2025) NCSS - Housing/Utilities Has Housing: Yes Worried About Losing Housing: No Unable to Get Utilities: No ALLERGIES No Known Allergies MEDICATIONS Current Discharge Medication List STOP taking these medications amitriptyline 25 mg tablet Comments: Reason for Stopping: amLODIPine 10 mg tablet Comments: Reason for Stopping: desloratadine 5 mg tablet Comments: Reason for Stopping: fluticasone propionate 50 mcg/actuation nasal spray Comments: Reason for Stopping: gabapentin 100 mg capsule Comments: Reason for Stopping: olmesartan 20 mg tablet Comments: Reason for Stopping: pramipexole 0.125 mg tablet Comments: Reason for Stopping: pregabalin 25 mg capsule Comments: Reason for Stopping: methocarbamoL 500 mg tablet Comments: Reason for Stopping: calcium acetate,phosphat bind, 667 mg capsule Comments: Reason for Stopping: latanoprost 0.005 % ophthalmic drops Comments: Reason for Stopping: sodium bicarbonate 650 mg tablet Comments: Reason for Stopping: lancets (FREESTYLE LANCETS) 28 gauge Misc Comments: Reason for Stopping: blood sugar diagnostic strip Comments: Reason for Stopping: Blood-Glucose Meter Kit Comments: Reason for Stopping: sildenafiL (VIAGRA) 100 mg tablet Comments: Reason for Stopping: lisinopriL-hydrochlorothiazide 20-25 mg per tablet Comments: Reason for Stopping: atorvastatin 20 mg tablet Comments: Reason for Stopping: Current Facility-Administered Medications: hydrOXYzine (ATARAX) tablet 25 mg, 25 mg, Oral, Q6HPRN, Martell Gandhi MD, 25 mg at 03/13/25 220 LORazepam (ATIVAN) tablet 0.5 mg, 0.5 mg, Oral, TIDPRN, Lai Cueva DO, 0.5 mg at 03/13/25 0948 calcium acetate(phosphat bind) (PHOSLO) capsule 1,334 mg, 1,334 mg, Oral, TID MEALS, Cuong Smith MD, 1,334 mg at 03/14/25 0804 dextrose 50 % in water (D50W) injection 25 mL, 25 mL, Slow IV Push, PRN, oJhn Real MD glucagon HCL injection 1 mg, 1 mg, Intramuscular, PRN, John Real MD Sliding Scale Insulin - Lispro (HumaLOG), , Subcutaneous, TID MEALS+HS, John Real MD acetaminophen (TYLENOL) tablet 650 mg, 650 mg, Oral, Q6HPRN, John Real MD amitriptyline (ELAVIL) tablet 25 mg, 25 mg, Oral, DAILY, John Real MD, 25 mg at 03/14/25 0805 amLODIPine (NORVASC) tablet 5 mg, 5 mg, Oral, DAILY, John Real MD, 5 mg at 03/14/25 08 atorvastatin (LIPITOR) tablet 20 mg, 20 mg, Oral, QHS, John Real MD, 20 mg at 03/13/25 220 carvediloL (COREG) tablet 12.5 mg, 12.5 mg, Oral, BID MEALS, John Real MD, 12.5 mg at 03/14/25 0806 dextrose 10% (D10W) bolus infusion 125 mL, 125 mL, Intravenous, PRN - SEE INSTRUCTIONS, John Real MD gabapentin (NEURONTIN) capsule 100 mg, 100 mg, Oral, QHS, John Real MD, 100 mg at 03/13/25 220 heparin (porcine) injection 5,000 Units, 5,000 Units, Subcutaneous, Q8H, John Real MD, 5,000 Units at 03/13/25 220 HYDROcodone-acetaminophen (NORCO 5) tablet 1 tablet, 1 tablet, Oral, Q6HPRN, John Real MD, 1 tablet at 03/11/25 193 insulin lispro (human) (HumaLOG U-100) injection 2 Units, 2 Units, Subcutaneous, PRN - SEE INSTRUCTIONS, John Real MD latanoprost (XALATAN) 0.005 % ophthalmic drops 1 Drop, 1 Drop, Both Eyes, QHS, John Real MD, 1 Drop at 03/13/25 220 melatonin (MELATIN) tablet 6 mg, 6 mg, Oral, Q, Martell Gandhi MD, 6 mg at 03/13/25 2206 pramipexole (MIRAPEX) tablet 0.125 mg, 0.125 mg, Oral, Q, John Real MD, 0.125 mg at 03/13/25 2207 traZODone (DESYREL) tablet 50 mg, 50 mg, Oral, QHSPRN, Martell Gandhi MD, 50 mg at 03/14/25 0116 REVIEW OF SYSTEMS: Comprehensive 10-system review was conducted and were negative except for what's noted in the HPI. The following systems were reviewed: Constitutional, cardiovascular, respiratory, gastrointestinal, genitourinary, musculoskeletal, neurologic, psychiatric, endocrinological, and hematological. PHYSICAL EXAMINATION: Vitals: 03/14/25 0300 03/14/25 0400 03/14/25 0500 03/14/25 0742 BP: 120/65 124/75 121/74 120/84 Pulse: 80 80 83 Resp: 17 18 Temp: 36.8 ?C (98.3 ?F) 37.1 ?C (98.8 ?F) TempSrc: Oral SpO2: 98% 96% 97% Weight: 76 kg (167 lb 8.8 oz) Height: General: no apparent distress HEENT: normocephalic atraumatic Neck: supple, no lymphadenopathy, no bruits, no JVD Lungs: clear to auscultation bilaterally. No wheezes or rhonchi. No increased work of breathing. Cardio: Regular rate and rhythm, S1&S2 normal, no murmurs, rubs or gallops Abdomen: soft; non-tender; non-distended; normoactive bowel sounds. : not examined Rectal: not examined Extremities: no clubbing, cyanosis, or edema. Skin: no rashes, no visible lesions. Neuro: no gross focal deficits LABS - Reviewed pertinent labs as below: CBC BMP PT/INR WBC (10*3/?L) Date Value 03/14/2025 5.31 NA (mmol/L) Date Value 03/14/2025 136 No results found for: "PT" PLT (10*3/?L) Date Value 03/14/2025 89 (L) K (mmol/L) Date Value 03/14/2025 4.8 INR (no units) Date Value 03/11/2025 1.2 HGB (g/dL) Date Value 03/14/2025 11.6 (L) BUN (mg/dL) Date Value 03/14/2025 33 (H) HCT (%) Date Value 03/14/2025 37.1 (L) CREATININE (mg/dL) Date Value 03/14/2025 6.24 (H) LIPID PROFILE GLUCOSE (mg/dL) Date Value 03/14/2025 170 (H) CHOL (mg/dL) Date Value 03/04/2021 139 TSH LDL CHOL (mg/dL) Date Value 03/04/2021 86 TSH (mIU/L) Date Value 09/08/2024 2.18 CARDIAC ENZYMES HDL (mg/dL) Date Value 03/04/2021 33 (L) CK (U/L) Date Value 06/25/2015 62 TRIG (mg/dL) Date Value 03/04/2021 102 LFTs CK-MB (ng/mL) Date Value 06/25/2015 0.54 AST(SGOT) (U/L) Date Value 03/14/2025 29 TROPONIN I (ng/mL) Date Value 03/11/2025 0.032 ALT(SGPT) (U/L) Date Value 01/13/2018 36 ALTv (U/L) Date Value 03/14/2025 15 No results found for: "BNP" LDL CHOL (mg/dL) Date Value 03/04/2021 86 Recent Labs 03/11/25 0946 TROPNI 0.032 There are no current results on file for these tests and/or test for 1 year. LDL CHOL (mg/dL) Date Value 03/04/2021 86 NT-proBNP (pg/mL) Date Value 03/11/2025 109,000 (H) ASSESSMENT/PLAN Principal Problem: Fall, initial encounter Active Problems: Chronic arterial ischemic stroke Hypertension Mixed hyperlipidemia Erectile dysfunction Shortness of breath End stage renal disease Anemia of chronic disease Chronic metabolic acidosis Coronary artery calcification seen on CT scan Type 2 diabetes mellitus with proliferative diabetic retinopathy with macular edema, unspecified eye Pleural effusion PAD (peripheral artery disease) Myocardiopathy Results Labs - Hemoglobin: 03/14/2025, 11.6 - Platelet count: 03/14/2025, 89,000, mildly reduced but stable - Potassium: 03/14/2025, 4.8 - Creatinine: 03/14/2025, 6.2 in the setting of ESRD - NT-proBNP: 03/11/2025, 109,000 - Troponins: 0.032 Imaging - Bilateral lower extremity Doppler: Presence of a calcified plaque noted across the right lower extremity with no flow detected in the distal anterior tibial and dorsalis pedis artery. On the left, calcified plaque formation throughout the left arterial system with no flow detected in the mid peroneal/distal anterior tibial and dorsalis pedis artery - Echocardiogram: 02/20/2024, Mild global hypokinesis, mildly reduced LV systolic function, 45 to 50%, normal RV size and function, no significant valve abnormalities are noted - Chest x-ray: 03/12/2025, No significant heart failure pattern noted - CT thorax: 03/11/2025, Right-sided moderate perfusion, a trace pericardial effusion noted. No heart failure pattern noted in the lung dominguez Diagnostic Testing - EK03/11/2025, Sinus rhythm, narrow QRS complex, nonspecific ST-T changes noted Assessment & Plan Dyspnea on exertion (IBRAHIM), NYHA class II-III: - Volume control as per dialysis team - Improvement in IBRAHIM noted after dialysis Cardiac risk factors include ESRD on dialysis for the last 9 months, hypertension, dyslipidemia, PVD, type 2 diabetes mellitus, and ongoing tobacco use. - Follow up with primary cardiology team for further cardiac evaluation to discuss regarding Invasive coronary angiogram recommended or Stress test to assess for underlying obstructive coronary artery disease NT-proBNP (pg/mL) Date Value 03/11/2025 109,000 (H) Recent Labs 09/08/24 0110 03/11/25 0946 TROPNI 0.026 0.032 Peripheral arterial disease (PAD): - Bilateral PAD noted - No evidence of rest pain or critical limb ischemia - Follow up with vascular surgery as outpatient for consultation and further intervention End-stage renal disease (ESRD) on dialysis: - Follows nephrology team Dyslipidemia: - Goal LDL <70 - Currently on Lipitor 20 mg daily LDL CHOL (mg/dL) Date Value 03/04/2021 86 Type 2 diabetes mellitus: - Treatment/workup with primary team Last Two A1C Results ([facility], POCT, [facility]) Recent Labs 03/13/25 0357 HGBA1C 6.6* Hypertension: - Goal blood pressure <130/80 - Treatment plan as per nephrology team - Currently on amlodipine 5 mg daily and carvedilol 12.5 mg b.i.d. Thrombocytopenia: - Treatment/workup with primary team Treatment plan discussed with the patient and family member at bedside. Follow-up: - Follow up with primary cardiology team Dr Smith for further cardiac evaluation - Follow up with vascular surgery as outpatient for consultation and further intervention for PAD Total Visit Time: 45 mins The total Visit time for today's visit with Jeevan Ordaz Jr. encompassed 45 minutes. Time was spent reviewing the chart before, during and after the visit, reviewing laboratory results, taking interval history, performing the documented physical examination, completing and "cleaning up" the electronic medical record as well as addressing any questions and concerns. The time spent for patient care includes: PreCharting (eg, review of tests, notes, etc.), Obtaining and/or reviewing separately obtained history (Care Everywhere or paper records), Counseling and educating the patient/family/caregiver, Ordering medications, tests, or procedures, Ordering referrals and/or communicating with other health healthcare or medical (when not separately reported), Documenting clinical information in the electronic or other health record, and Independently interpreting results (not separately reported) and/or communicating results to the patient/family/caregiver, and personally reviewing cardiac imaging, ECG, tele monitor. This report was dictated using Copier How To and is subject to voice recognition errors. Please excuse any unusual inaccuracies. My diagnostic impression and treatment plans were discussed at length with the patient and family member present. All side effects as well as drug-drug interactions and risks discussed at length. Ample opportunity was offered and encouraged to ask questions during this visit and patient appreciated the answers given by me and verbzalised statisfcation in the answers given. Thank you for allowing us to participate in the care of Jeevan Ordaz JrGerald. If you have any questions or concerns please feel free to call our office at [phone]. I would be happy to be of further assistance for Jeevan Ordaz JrGerald wellbeing. Voice recognition software has been used to create portions of this document. An attempt to proofread has been made to minimize errors. Please do not hesitate to call with any questions. Frederick Sebastian MD 03/14/2025 11:09 AM Paper Conservator, Division of Cardiology [facility] 2025-03-14 10:24:48 Associated Order(s): CONSULT ADULT PHYSICAL THERAPY Patient agreeable to working with physical therapy. Patient semireclining in bed, Spouse present. Recommend nursing staff utilize SBA to safely assist patient with mobility out of the bed or chair. PHYSICAL THERAPY EVALUATION Consult received, chart reviewed and evaluation complete this date. Patient is referred to PT for evaluation and treatment. Patient is a 54 year old male who presents to hospital for Fall, initial encounter [W19.XXXA] . Discharge Recommendations: Therapy Needs and Potential: Patient without any skilled PT needs at this time. Challenges to Home Transition: increased risk of falls Equipment recommendations: Patient has or access to necessary equipment Current Functional Status and/or Treatment: AM-PAC 6 Clicks (Raw Score 0=Dependent, 24=Independent; Low function Raw Score 0= Dependent, 32=Independent): Raw Score - Basic Mobility : 24 T-Scale Score - Basic Mobility : 57.68 Bed Mobility: Scooting to edge of bed: Independent Normalized Dizziness No Transfers: Sit to stand: Independent using no device Stand to sit: Independent using no device Normalized Dizziness No Ambulation: Assisted patient with ambulation as follows: 200 feet using no device and Independent. Educated patient to use blind white stick Dizziness No Therapeutic exercise: patient educated in blind stick. and patient/caregiver verbalizes understanding of instructions. After session, patient seated edge of bed, Spouse present. Call button provided. Patient nurse was notified on current condition. PLAN OF CARE: PT signs off. See below for complete details. Admit Date: 03/11/2025 Hospital Diagnosis:Fall, initial encounter [W19.XXXA] PT Diagnosis: NA Weight Bearing Precaution: NA General Precautions: General, Fall Bracing/Cast present or required:N/A PMH: Past Medical History: Diagnosis Date Depression Diabetes mellitus Diabetic retinopathy ED (erectile dysfunction) Hyperlipidemia Hypertension Legally blind PSH: Past Surgical History: Procedure Laterality Date ARTERIOVENOUS FISTULA CREATION Left 02/29/2024 Surgeon: Andrei Yanes MD; Location: [facility] OR LOCATION DIRECT LARYNGOSCOPY N/A 01/08/2018 Surgeon: Petey Looney MD; Location: [facility] Location EYE SURGERY INCISION AND DRAINAGE OF ABSCESS Left 01/10/2018 Surgeon: Nitish Bajwa MD; Location: [facility] Location TUNNELED CATHETER (SHX) 02/02/2024 RT IJ tunneled HD catheter PRIOR LIVING SITUATION: lives with their family and in a mobile home, Able to negotiate: Yes DME: [employer], patient also stated that patient has a blind stick that he doesn't use. Prior level of Mobility: community ambulation Suspected ischemic or hemorraghic stroke:No Subjective: Patient complaint of L side rib cage pain and reported that he is blind on his L eye. Patient/Family Goals: NA Patient/Family verbalizes understanding of condition: Yes PAIN: -Pain Location: rib cage COMMUNICATION Primary Language: Cameroonian Able to Verbalize needs: Yes Vision:blind Hearing:good; no issues reported ORIENTATION/COGNITION: Oriented to: person, place, date/time, and situation Awake: Yes Alert: Yes Dizzy: No Follows Commands: Yes 1-Step Yes Multi-Step Yes Inconsistent: No NEUROLOGICAL Light Touch: within functional limits bilateral LE, Heel to mays: NA Tone: Normal BALANCE: Sitting: Static: Good Dynamic: Good Standing: Static: Good Dynamic: NT RANGE OF MOTION: within functional limits bilateral LE STRENGTH: 4/5 (Good), bilateral LE ENDURANCE: NT SKIN INTEGRITY: intact PROBLEM LIST: NA ASSESSMENT: Patient is a 54 year old male seen secondary to the above listed diagnosis. No further inpatient PT needs identified at this time. Rehabilitation Potential: NA as no further therapy needs Goals: The following goals are to maximize independence and safety with functional mobility to eventually return to prior living situation and prior functional status. Defer as no PT needs. Treatment Plan: Evaluation only PATIENT EDUCATION: Patient provided with preferred teaching of verbal information on role of PT, plan of care. Shows readiness to learn. Verbal instruction teaching provided. Individual is able to read and verbalizes understanding of teaching provided. Total Time Tx Codes in Minutes: 20 min Total Treatment Time in Minutes: 30 min Naty Sibley PT [place] License: [id number] Naty Sibley PT [facility] 2025-03-11 15:20:31 Associated Order(s): CONSULT NEPHROLOGY Consultation requested by: IM/Hospitalist, Dr. Real Reason for Consultation: ESRD, missed HD, hyperkalemia, dyspnea Date of Service: 03/11/25 History of Present Illness: Jeevan Ordaz Jr. is a 54 year old male with complaints of mechanical fall in the shower, hitting his left side and complaining of left rib pain and causing him to miss HD earlier in the day. Last HD reported as Sat but has missed sessions in prior months. He reports other falls in the setting of numbness in his feet and other. He also acknowledges some increased dyspnea and orthopnea as of late. CT imaging shows Rt sided mo effusion. Potassium level elevated which it has been in the past. PAST MEDICAL HISTORY Past Medical History: Diagnosis Date Depression Diabetes mellitus Diabetic retinopathy ED (erectile dysfunction) Hyperlipidemia Hypertension Legally blind Past Surgical History: Procedure Laterality Date ARTERIOVENOUS FISTULA CREATION Left 02/29/2024 Surgeon: Andrei Yanes MD; Location: [facility] OR LOCATION DIRECT LARYNGOSCOPY N/A 01/08/2018 Surgeon: Petey Looney MD; Location: [facility] EYE SURGERY INCISION AND DRAINAGE OF ABSCESS Left 01/10/2018 Surgeon: Nitish Bajwa MD; Location: [facility] Location TUNNELED CATHETER (SHX) 02/02/2024 RT IJ tunneled HD catheter Family History Problem Relation Age of Onset Diabetes Mother Hypertension Mother Stroke Mother Diabetes Maternal Grandmother Hypertension Maternal Grandmother Diabetes Maternal Aunt Hypertension Maternal Aunt Diabetes Maternal Uncle Hypertension Maternal Uncle Alcohol/Drug Father Allergies: Patient has no known allergies. MEDICATIONS Hospital Medications: Current Facility-Administered Medications Medication Dose Route Frequency Last Rate Last Admin acetaminophen (TYLENOL) tablet 650 mg 650 mg Oral Q6HPRN calcium gluconate 2 g in NaCl 100 mL (ISO-OSM) RTU IV infusion 2 g 2 g IV Infusion PRN - SEE INSTRUCTIONS Held at 03/11/25 1300 dextrose 10% (D10W) bolus infusion 125 mL 125 mL Intravenous PRN - SEE INSTRUCTIONS dextrose 50 % in water (D50W) injection 25 mL 25 mL Slow IV Push PRN glucagon HCL injection 1 mg 1 mg Intramuscular PRN heparin (porcine) injection 5,000 Units 5,000 Units Subcutaneous Q8H 5,000 Units at 03/11/25 1500 HYDROcodone-acetaminophen (NORCO 5) tablet 1 tablet 1 tablet Oral Q6HPRN insulin lispro (human) (HumaLOG U-100) injection 2 Units 2 Units Subcutaneous PRN - SEE INSTRUCTIONS morphine (2 mg/mL) injection 2 mg 2 mg Slow IV Push Q4HPRN SOCIAL HISTORY Social History Tobacco Use Smoking Status Some Days Current packs/day: 1.00 Average packs/day: 1 pack/day for 5.0 years (5.0 ttl pk-yrs) Types: Cigarettes Passive exposure: Never Smokeless Tobacco Never Social History Substance and Sexual Activity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 Occupational History Occupation: Disabled Tobacco Use Smoking status: Some Days Current packs/day: 1.00 Average packs/day: 1 pack/day for 5.0 years (5.0 ttl pk-yrs) Types: Cigarettes Passive exposure: Never Smokeless tobacco: Never Substance and Sexual Activity Alcohol use: Yes Alcohol/week: 12.0 standard drinks of alcohol Types: 12 Cans of beer per week Comment: was drinking daily, now a couple days a week Drug use: Yes Types: Marijuana, Cocaine Comment: smoked majuriuana and did cocaine in 20s but not anymore Social Drivers of Health Food Insecurity: No Food Insecurity (03/11/2025) NCSS - Food Insecurity Worried About Running Out of Food in the Last Year: No Ran Out of Food in the Last Year: No Transportation Needs: No Transportation Needs (03/11/2025) NCSS - Transportation Lack of Transportation: No Housing Stability: Not At Risk (03/11/2025) NCSS - Housing/Utilities Has Housing: Yes Worried About Losing Housing: No Unable to Get Utilities: No REVIEW OF SYSTEMS 10 systems negative except per HPI PHYSICAL EXAMINATION BP (!) 165/103 | Pulse 105 | Temp 36.6 ?C (97.9 ?F) (Oral) | Resp 17 | Ht 1.727 m (5' 8") | Wt 77 kg (169 lb 12.1 oz) | SpO2 100% | BMI 25.81 kg/m? General: No acute distress HEENT: Normal oral mucosa, anicteric sclerae, NCAT Cardiovascular: RRR Lungs: Symmetric expansion, clear bilaterally Abdomen: Soft, NTND Musculoskeletal: No synovitis, normal muscle mass Genitourinary: Deferred Skin: No rash, no skin lesions Extremities: No clubbing, no cyanosis, no lower extremity edema Neuro: AAOx3, no focal deficits Psych: Normal affect LABS - reviewed pertinent labs as below: CBC BMP PT/INR WBC (10*3/?L) Date Value 03/11/2025 5.97 NA (mmol/L) Date Value 03/11/2025 137 No results found for: "PT" RBC (10*6/?L) Date Value 03/11/2025 3.93 (L) K (mmol/L) Date Value 03/11/2025 4.7 INR (no units) Date Value 03/11/2025 1.2 PLT (10*3/?L) Date Value 03/11/2025 124 (L) CALCIUM (mg/dL) Date Value 03/11/2025 9.1 HGB (g/dL) Date Value 03/11/2025 11.1 (L) CL (mmol/L) Date Value 03/11/2025 100 aPTT HCT (%) Date Value 03/11/2025 35.9 (L) BUN (mg/dL) Date Value 03/11/2025 33 (H) APTT Patient (Seconds) Date Value 12/15/2020 27 CREATININE (mg/dL) Date Value 03/11/2025 7.45 (H) IMAGING - reviewed, pertinent results as below: Hospital Encounter on 03/11/25 CT Thorax wo contrast Narrative PROCEDURE: CT CHEST WITHOUT CONTRAST - CHEST PROTOCOL CLINICAL INDICATION: fall , left chest contusion Comparison: None TECHNIQUE: Volumetric images of the chest were acquired (from lung apices to bases).Images were reconstructed at 2.5 mm slice thickness. MIP axial images, coronal and sagittal reformats were also submitted for interpretation. FINDINGS: Devices: None LUNGS AND PLEURA: Moderate right pleural effusion with associated compressive atelectasis. The left lung is clear apart from mild basilar atelectasis. No focal opacities are identified. No suspicious nodules. LYMPH NODES: Scattered small lymph nodes in both sides of the mediastinum and hilar regions. No evidence of intrathoracic lymphadenopathy. MEDIASTINUM AND LOWER NECK: No central airway lesions are detected. The esophagus is within normal limits. The included thyroid gland appears normal. HEART AND GREAT VESSELS: The heart is normal in size. Trace pericardial effusion. The RV to LV is normal. The thoracic aorta is normal in caliber, with Mild atherosclerotic plaque. Moderate atherosclerotic calcifications of the coronary vessels. The pulmonary trunk is normal in caliber. VISUALIZED UPPER ABDOMEN: Trace perihepatic and perisplenic ascites. OSSEOUS STRUCTURES AND SOFT TISSUES: Superior endplate compression deformity at T12. No focal osseous lesions are detected. The soft tissues appear normal. Impression Moderate right pleural effusion with associated basilar atelectasis. Trace pericardial effusion. Trace perihepatic and perisplenic ascites in the visualized abdomen. Preliminary Report Dictated by Resident: Kym Baumann I, Kenneth Potter MD., have reviewed this study and agree with the above report. ASSESSMENT/PLAN: 1. Shortness of breath secondary to fluid overload from hemodialysis; hemodialyzed per nephrology and respiratory status is back to baseline according to the patient. Patient appears to be stable and possible discharge in a.m. if nephrology agreeable. 2. ESRD; hemodialysis outpatient as already arranged in patient can follow-up at that time. 3. Metabolic syndrome; strict blood pressure and blood sugar control and continue with statin therapy 4. History of depression; continue with antidepressants 5. GI DVT prophylaxis DVT prophylaxis: heparin Stress ulcer prophylaxis: pantoprazole Code status: FULL Advanced Care Planning (Z71.89) Above assessment and plan discussed at length with patient, patient expressed full understanding. Questions and concerned addressed. 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 He reports that he has missed his dialysis twice with dialysis on Monday. Before the episode, he was just sitting watching tv, he usually get chest pain once a month. He reports occasionally smoking cigar, drinks 0.5 hard liquor every 2 weeks, denies drug use. FH with mother with MT in her 60s, limited paternal family history. [...] pain, dysuria, Hematochezia, melena, hematemesis, hemoptysis AT [facility] ER, patient was found to be tachycardiac and hypertensive. Lab work remarkable for micorcytic anemia (11.5), K 6.2, bicarb 21. Patient was shifted with insulin and started on lokelma. Patient transferred to [facility] for dialysis. Past medical history: has a [...] RL: 1105 : NSR, No TWI or FRANKIE, interpreted by me CHART REVIEWED ASSESSMENT/PLAN Jeevan Ordaz Jr. is [...] the day. Initial K 6.2, shifted at [facility] with repeat K 4.6, plan to repeat [...] of HTN urgency. EKG w/o TWI or FRANKIE. Initial trop wnl. Pain lasted for 1.5 hours, resolved with nitro but after 30 mins?. Last TTE 03/04 with EF 45-50%. FH with MT in mother in 60s. Smokes cigar occasionally, [...] Estiven Tobar DO, PGY3 Internal Medicine Department NING EXECUTIVE Associated attestation - Guilherme Sheth MD - 09/08/2024 2:37 AM TRAINING EXECUTIVE I personally examined the patient on 09/08/[address] Tobar's resident note as written. I actively participated in the decision-making process. Please see the resident's note for additional details. Guilherme Sheth MD Division of Internal Pumper Gager ApprenticePaper Conservator [facility] 2024-02-29 06:39:38 Patient seen and examined [...] propionate 50 mcg/actuation nasal spray Use 1 Isabela in each nostril. sodium bicarbonate 650 mg [...] every evening. lancets (FREESTYLE LANCETS) 28 gauge [facility] USE ONE LANCET TO CHECK BLOOD GLUCOSE [...] considered low risk for perioperative cardiac complications. [facility] 2024-02-15 13:45:00 Vascular Surgery Clinic Note Date [...] propionate 50 mcg/actuation nasal spray Use 1 Isabela in each nostril. sodium bicarbonate 650 mg [...] every evening. lancets (FREESTYLE LANCETS) 28 gauge [facility] USE ONE LANCET TO CHECK BLOOD GLUCOSE [...] considered low risk for perioperative cardiac complications. [facility] - Health [...] note below for review. Denisse Cabrera MD [facility] General Surgery [...] N/A 01/08/2018 Surgeon: Petey Looney MD; Location: [facility] OR Location EYE SURGERY INCISION AND DRAINAGE OF ABSCESS Left 01/10/2018 Surgeon: Nitish Bajwa MD; Location: [facility] OR [facility] Allergies: No Known Allergies Medications: [...] PROPIONATE 50 MCG/ACTUATION NASAL SPRAY Use 1 Isabela in each nostril. INSULIN GLARGINE (LANTUS U-100 [...] times daily. LANCETS (FREESTYLE LANCETS) [address] [facility] USE ONE LANCET TO CHECK BLOOD GLUCOSE [...] propionate 50 mcg/actuation nasal spray Use 1 Isabela in each nostril. latanoprost 0.005 % ophthalmic [...] by mouth. lancets (FREESTYLE LANCETS) 28 gauge [facility] USE ONE LANCET TO CHECK BLOOD GLUCOSE [...] othopnea, claudication, edema, coronary artery disease/history of MT Respiratory: Cough, sputum production, hemoptysis, wheezing, shortness [...] Influenza B Negative Negative COVID DMT Interpretation Interpretation/Recommendations : Molecular NAAT Tests for Active Infection with [...] COVID-19 tests the patient has had at [facility]: molecular nucleic acid amplification tests (NAAT) (specifically PCR testing and Rapid ID Now testing) and antibody tests. It does not take into account antigen testing or any additional testing that a patient may have had outside of the [facility] medical record. [...] surgery Michelle Moscoso M.D. 01/22/2024 13:08 T [facility] Procedure Notes Date/Time Note Provider Source 2025-05-13 16:11:37 Left Heart Cath/Coronary Angiography/Percutaneous Coronary Intervention Jeevan Ordaz Jr. Date of Service: 05/13/2025 4:11 PM Attending Physician: Bethanie Giles MD Fellow: Dr Hamilton Referring Physician: No ref. provider found Procedures Performed: Right femoral artery access Left heart catheterization Coronary angiogram PCI of diagonal Indication/Diagnosis: heart failure, chest pain Consent: Risks, benefits, alternatives and complications of the procedure discussed with the patient, who understood and agreed to proceed. Aseptic technique: Chlorprep Local Anesthesia: 1% lidocaine without epinephrine Sedation: Moderate Access site: right femoral artery Closure Method: Perclose Sterile dressing: yes Complications: none Procedures: After patient identification/verificatio n, the patient was thereafter transferred to the cathode ray tube salvage processor table. The access site was prepped and draped in usual sterile fashion. After administering sedation, time out was done. Under ultrasound guidance, using modified Seldinger technique, the right femoral artery was accessed using a micropuncture kit. The access was upgraded to a 6 Fr sheath. A 6 Fr JL 4.0 catheter was then used to cannulate the LM. Selective coronary angiography was done using several views. A 6 Fr JR 4 was used to cross the AV with the J wire and the catheter was advanced into the LV where selective LVEDP was measured, the catheter was then used to selectively engage the RCA and perform diagnostic angiography. Based on the diagnostic angiography, a decision was made to intervene on the diagonal branch and a EBU 3.5 guide catheter was advanced for intervention. IV heparin was administered to maintain the ACT >300s for the intervention. The attending physician was present throughout the procedure and provided the highest level of supervision. Findings: Coronary dominance: right Left main: Luminal irregularities LAD: Large caliber vessel. Gives off a large diagonal branch in the proximal segment. Entire vessel is diffusely disease with moderate atherosclerosis. D1: Large caliber vessel, mid segment demonstrates 70-80% stenosis s/p IVUS guided PTCA/PCI with 2.0 x 16 gemma KATHIE post dilated with 2.75 mm NC. D2: Medium caliber vessel, demonstrates mild diffuse disease D3: small to medium caliber vessel, demonstrates 40-50% stenosis in the proximal segment LCX: Moderate to large caliber non-dominant vessel. Proximally demonstrates mild disease. Distally it is 100% occluded with left to left collaterals. OM1: Moderate caliber vessel with mild disease OM2: Small to medium caliber vessel with mild disease RCA: Large caliber dominant vessel, there is moderate diffuse calcification. Proximal segment appeared hazy and hence we decided to IVUS. On IVUS, there is calcific plaque burden in the proximal segment without significant stenosis. PDA: Small to medium caliber vessel with mild disease PLB: Small to medium caliber vessel with mild disease LVEDP: 18 mmHg Intervention details: Lesion #1: Mid diagonal Lesion type: Type A Guide catheter: EBU 3.5 Guide wire: Runthrough Stentin.0 x 20 mm Medtronic gemma KATHIE Post-dilation: 2.25 mm followed by 2.5 mm and 2.75 mm NC balloon 0% residual stenosis with KIMBERLY 3 flow IVUS/OCT: Pre: Fibrocalcific plaque with severe plaque burden Post: Excellent stent expansion and apposition Post-Procedure Sedation Addendum Immediately prior to start of sedation, the patient was evaluated and there was no change from the pre-procedure evaluation. I was present and directed medical care. The patient underwent moderate sedation for the procedure. The medications administered were recorded in the MAR; oxygenation, ventilation and circulation were monitored continuously and were recorded in the EMR. I evaluated the patient after the procedure. The patient was evaluated immediately as recovering from sedation. Complications: none Impression: Successful PTCA/PCI large diagonal branch Moderate diffuse disease in LAD, PLASTER DIE MAKER of circumflex in the distal segment with left to left collaterals 3. LVEDP: 18 mmhg Plan: Received 600mg Plavix in the lab, continue ASA, Plavix uninterrupted for atleast 12 months Continue optimization of medical therapy Aggressive risk factor modification Close cardiology follow up Chris Hamilton MD 05/13/2025 4:11 PM Cosigned by Bethanie Giles MD at 05/13/2025 8:53 PM CDT Associated attestation - Bethanie Giles MD - 05/13/2025 8:53 PM CDT Agree INTERVENTIONAL CARDIOLOGY [facility] 2025-03-12 15:15:00 Procedure(s): IR THORACENTESIS WITH IMAGING Patient recieved to Radiology for thoracentesis right side . Indication for procedure is pleural effusion Pt identified using name and . shale processing technician monitoring is Ibeth PEDERSEN Faculty supervising is Dr. Dozier obtained consent as 1540 Invasive procedure checklist completed at 1545 Time out completed at 1547 Pre-procedure vitals are: BP 148/87 HR 86 O2 95 Post procedure vitals are: BP 132/80 HR 85 O2 98 Specimen: 700 mL right side Post procedure disposition remained in room [place] Cristina [facility] 2024-02-29 07:39:50 Associated Order(s): Nerve Block Nerve [...] EPI 1:200K Sedation: Midazolam 1 AN-ANESTHESIOLOGY ANESTHESIOLOGIST [facility] Notes Date/Time Note Provider Source 2025-06-13 21:07:09 Pt elope Israel Ferguson RN [facility] 2025-06-13 14:46:20 Jeevan Ordaz Jr. is a 55 year old male s/p fall. Reports landing on knee. Reports fall at 1230. No head injury. + blood thinners. Fall also 2 weeks ago with rt wrist injury. C/o left lower leg pain/injury. Pain /10. No otc meds. Pt reports tripping when getting into car. Ansley Soler RN [facility] 2025-06-12 17:13:26 Reviewed / discussed providers recommendations with Mr Ordaz, he verbalizes understanding and states he has swelling in his genitals, but that is not new - Onset 2 months, he was suppose to follow up with a doctor and he missed/lost appointment, he states he still has the 3 lumps in groin area. Advised per provider recommendations to go to ER for evaluation. . He verbalized understanding and states he will go in a day, advised to go as soon as possible, he states he will. He has no further questions/concerns at this time. Yissel Fuentes RN [facility] 2025-06-12 11:53:43 Mrs Ordaz request we call pt back after 4, currently at dialysis. Yissel Fuentes RN [facility] 2025-06-11 15:15:25 Mr. Ordaz' blood pressure readings as reported are not yet at goal. He should start taking the amlodipine 10 mg daily (not twice daily) as instructed. He should continue to keep a log of his daily blood pressure readings and follow up with the office as planned. During the office visit on 2025, he was asked to go to the emergency department (ED) immediately for evaluation of of both the suspected fracture of his right forearm and the suspected hematoma/swelling in his right groin area. Upon my review of the ED notes from 05/30/2025, it appears that he left the ED before the ED physician got a chance to evaluate him. If the right groin swelling is persistent and bothersome, I recommend that he should go back to the ED to have it evaluated further. [facility] 2025-06-09 11:43:05 Mr Darrell reports the following BP/HR, He denies any symptoms, except wanted the doctor to know he still has 3 " 3 [place]ville size lumps/balls" in his grown area - no redness, swelling or pain to the area and states it is not improved or worsened since the doctor examined it at on 2025 . He also states he is not taking amlodipine 10 mg twice daily, he was concerned that it would drop his BP to much. Education done on monitoring BP/HR, taking medications as directed, Mr Ordaz verbalized understanding and states he will start to take it as directed, taking rest of cardiac medications as directed . Advised message will be sent to the provider. 143/89 87 145/91 81 142/82 76 138/82 76 137/83 77 146/78 91 143/89 87 149/93 102 145/88 84 143/79 85 150/90 87 151/90 83 152/85 76 142/88 82 Yissel Fuentes RN [facility] 2025-06-09 10:06:07 The patient's called to speak with Yissel to go over blood pressure readings. The provided a few of BP readings. Please advise and double check bp readings with patient's . 143/89/87 145/91/81 137/83/77 143/89/[address] [facility] 2025-05-30 02:22:44 Awake, alert oriented X4, respiratory even and unlabored,skin w/d color appropriate for race, moves all ext well, pt encouraged to follow up with pcp and or return as needed Pt given printed and verbal discharge instructions regarding closed fracture of distal end of radius, right wrist pain , patient verbralized understanding and signature obtained, patient denies any other concerns. Prescriptions provided Discussed tramadol/phenergan/Tylenol # 3 side affects and to avoid driving/operating machinery/or engaging in activities requiring alertness while taking. Advised to seek medical attention for new/prolonged/worsening of symptoms, No adverse reaction to meds given in ER noted upon discharge Pt taken to POV via wheelchair Nesha Huber RN [facility] 2025-05-30 00:25:35 Pt arrived ambulatory without assist, Pt reports decreased vision in both eyes. Pt c/o fall off second step while getting out of van, fall was around 0900 on 2025 Iram Navarro RN [facility] 2025-05-27 21:41:44 Arrives to ED assisted by wheelchair. C/O SOB that began today after taking his daily meds which include Amlodipine, Metoprolol, Olmesartan, and baby aspirin. Pt is a dialysis pt and had dialysis done today. Hx of Covid 4 weeks ago. Hx of heart stents placed at the beginning of this month. Pt is 100% RA and lung sounds clear during triage. [facility] 2025-05-14 14:08:34 Problem: Falls, Risk of Goal: Absence of falls 05/14/2025 1408 by Stephen Comer RN Outcome: Adequate for discharge 05/14/2025 1331 by Stephen Comer RN Outcome: Progressing as expected Problem: Respiratory Function - Impaired Goal: Able to cough effectively 05/14/2025 1408 by Stephen Comer RN Outcome: Adequate for discharge 05/14/2025 1331 by Stephen Comer RN Outcome: Progressing as expected Goal: Adequate oxygenation 05/14/2025 1408 by Stephen Comer RN Outcome: Adequate for discharge 05/14/2025 1331 by Comer, Stephen A, RN Outcome: Progressing as expected Goal: Adequate work of breathing 05/14/2025 1408 by Stephen Comer RN Outcome: Adequate for discharge 05/14/2025 1331 by Stephen Comer RN Outcome: Progressing as expected Goal: Patent airway 05/14/2025 1408 by Stephen Comer RN Outcome: Adequate for discharge 05/14/2025 1331 by Stephen Comer RN Outcome: Progressing as expected Problem: Procedure Routine Goal: Knowledge of procedure 05/14/2025 1408 by Stephen Comer RN Outcome: Adequate for discharge 05/14/2025 1331 by Stephen Comer RN Outcome: Progressing as expected Problem: Discharge Planning Goal: Adequate for discharge 05/14/2025 1408 by Stephen Comer RN Outcome: Adequate for discharge 05/14/2025 1331 by Stephen Comer RN Outcome: Progressing as expected Goal: Effective communication 05/14/2025 1408 by Stephen Comer RN Outcome: Adequate for discharge 05/14/2025 1331 by Stephen Comer RN Outcome: Progressing as expected Problem: Fluid Volume - Imbalanced Goal: Absence of signs and symptoms of imbalanced fluid volume 05/14/2025 1408 by Stephen Comer RN Outcome: Adequate for discharge 05/14/2025 1331 by Stephen Comer RN Outcome: Progressing as expected Problem: Glucose Control - Initiated in Adult CC Goal: Glucose level within specified parameters 05/14/2025 1408 by Stephen Comer RN Outcome: Adequate for discharge 05/14/2025 1331 by Stephen Comer RN Outcome: Progressing as expected Problem: Infection, Risk of or Actual Goal: Absence of infection 05/14/2025 1408 by Stephen Comer RN Outcome: Adequate for discharge 05/14/2025 1331 by Stephen Comer RN Outcome: Progressing as expected Problem: Pain Goal: Control of pain at or below patient's documented comfort goal 05/14/2025 1408 by Stephen Comer RN Outcome: Adequate for discharge 05/14/2025 1331 by Stephen Comer RN Outcome: Progressing as expected Goal: Reduction in pain sensation 05/14/2025 1408 by Stephen Comer RN Outcome: Adequate for discharge 05/14/2025 1331 by Stephen Comer RN Outcome: Progressing as expected Problem: Skin integrity Impaired (Risk or Actual) Goal: Wound healing 05/14/2025 1408 by Stephen Comer RN Outcome: Adequate for discharge 05/14/2025 1331 by Stephen Comer RN Outcome: Progressing as expected Goal: Prevention of new skin breakdown 05/14/2025 1408 by Stephen Comer RN Outcome: Adequate for discharge 05/14/2025 1331 by Stephen Comer RN Outcome: Progressing as expected Problem: Venous Thromboembolism, (actual or risk of) Goal: Absence of venous thromboembolism (Risk) 05/14/2025 1408 by Stephen Comer RN Outcome: Adequate for discharge 05/14/2025 1331 by Stephen Comer RN Outcome: Progressing as expected Problem: Inadequate Renal Function Goal: Maintain Renal Function 05/14/2025 1408 by Stephen Comer RN Outcome: Adequate for discharge 05/14/2025 1331 by Stephen Comer RN Outcome: Progressing as expected Stephen Comer RN [facility] 2025-05-14 13:32:00 Problem: Falls, Risk of Goal: Absence of falls Outcome: Progressing as expected Problem: Respiratory Function - Impaired Goal: Able to cough effectively Outcome: Progressing as expected Goal: Adequate oxygenation Outcome: Progressing as expected Goal: Adequate work of breathing Outcome: Progressing as expected Goal: Patent airway Outcome: Progressing as expected Problem: Procedure Routine Goal: Knowledge of procedure Outcome: Progressing as expected Problem: Discharge Planning Goal: Adequate for discharge Outcome: Progressing as expected Goal: Effective communication Outcome: Progressing as expected Problem: Fluid Volume - Imbalanced Goal: Absence of signs and symptoms of imbalanced fluid volume Outcome: Progressing as expected Problem: Glucose Control - Initiated in Adult CC Goal: Glucose level within specified parameters Outcome: Progressing as expected Problem: Infection, Risk of or Actual Goal: Absence of infection Outcome: Progressing as expected Problem: Pain Goal: Control of pain at or below patient's documented comfort goal Outcome: Progressing as expected Goal: Reduction in pain sensation Outcome: Progressing as expected Problem: Skin integrity Impaired (Risk or Actual) Goal: Wound healing Outcome: Progressing as expected Goal: Prevention of new skin breakdown Outcome: Progressing as expected Problem: Venous Thromboembolism, (actual or risk of) Goal: Absence of venous thromboembolism (Risk) Outcome: Progressing as expected Problem: Inadequate Renal Function Goal: Maintain Renal Function Outcome: Progressing as expected [facility] 2025-05-14 02:00:49 Problem: Falls, Risk of Goal: Absence of falls Outcome: Progressing as expected Problem: Respiratory Function - Impaired Goal: Able to cough effectively Outcome: Progressing as expected Goal: Adequate oxygenation Outcome: Progressing as expected Goal: Adequate work of breathing Outcome: Progressing as expected Goal: Patent airway Outcome: Progressing as expected Problem: Procedure Routine Goal: Knowledge of procedure Outcome: Progressing as expected Problem: Discharge Planning Goal: Adequate for discharge Outcome: Progressing as expected Goal: Effective communication Outcome: Progressing as expected Problem: Fluid Volume - Imbalanced Goal: Absence of signs and symptoms of imbalanced fluid volume Outcome: Progressing as expected Problem: Glucose Control - Initiated in Adult CC Goal: Glucose level within specified parameters Outcome: Progressing as expected Problem: Infection, Risk of or Actual Goal: Absence of infection Outcome: Progressing as expected Problem: Pain Goal: Control of pain at or below patient's documented comfort goal Outcome: Progressing as expected Goal: Reduction in pain sensation Outcome: Progressing as expected Problem: Skin integrity Impaired (Risk or Actual) Goal: Wound healing Outcome: Progressing as expected Goal: Prevention of new skin breakdown Outcome: Progressing as expected Problem: Venous Thromboembolism, (actual or risk of) Goal: Absence of venous thromboembolism (Risk) Outcome: Progressing as expected Problem: Inadequate Renal Function Goal: Maintain Renal Function Outcome: Progressing as expected Siria Flores RN [facility] 2025-05-13 13:37:50 HEMODIALYSIS NURSING NOTE Number Hours: 4.0 hours Bath: 2K 3 Calcium (standard dialysate) Heparin: treatment 2,000 units given Access: left AVF upper arm Net UF: 3800 ml Weight: pre 87.5 kg, post 84.0 kg Post BP 146/85 Post Pulse 92 Antibiotics/Medications Given: None Complications/Events of Treatment: HD completed. Patient tolerated treatment well. No complications/events noted during treatment. Patient left the unit post HD without complaints nor distress. Handoff report completed and attached to Patient Chart Mode of Transport Back to Unit: wheelchair and accompanied by transporter JUDITH Fisher4 See hemodialysis flowsheet for details of treatment. Lyndsey Garcia RN [facility] 2025-05-13 08:52:43 Problem: Procedure Routine Goal: Knowledge of procedure Outcome: Progressing as expected Hemodialysis plan of care reviewed with patient r/t UF goal and treatment time. Also reviewed possible side effects of hemodialysis such as s/s of muscle cramping, nausea/vomiting, chest pain, headache, bleeding of access site, dizziness, low blood pressure or any other concerns. Patient acknowledge understanding of treatment plan. [facility] 2025-05-13 08:08:03 Problem: Falls, Risk of Goal: Absence of falls Outcome: Progressing as expected Problem: Respiratory Function - Impaired Goal: Able to cough effectively Outcome: Progressing as expected Goal: Adequate oxygenation Outcome: Progressing as expected Goal: Adequate work of breathing Outcome: Progressing as expected Goal: Patent airway Outcome: Progressing as expected Problem: Procedure Routine Goal: Knowledge of procedure Outcome: Progressing as expected Problem: Discharge Planning Goal: Adequate for discharge Outcome: Progressing as expected Goal: Effective communication Outcome: Progressing as expected Problem: Fluid Volume - Imbalanced Goal: Absence of signs and symptoms of imbalanced fluid volume Outcome: Progressing as expected Problem: Glucose Control - Initiated in Adult CC Goal: Glucose level within specified parameters Outcome: Progressing as expected Problem: Infection, Risk of or Actual Goal: Absence of infection Outcome: Progressing as expected Problem: Pain Goal: Control of pain at or below patient's documented comfort goal Outcome: Progressing as expected Goal: Reduction in pain sensation Outcome: Progressing as expected Problem: Skin integrity Impaired (Risk or Actual) Goal: Wound healing Outcome: Progressing as expected Goal: Prevention of new skin breakdown Outcome: Progressing as expected Problem: Venous Thromboembolism, (actual or risk of) Goal: Absence of venous thromboembolism (Risk) Outcome: Progressing as expected Problem: Inadequate Renal Function Goal: Maintain Renal Function Outcome: Progressing as expected [facility] 2025-05-13 00:30:13 Problem: Falls, Risk of Goal: Absence of falls Outcome: Progressing as expected Problem: Respiratory Function - Impaired Goal: Able to cough effectively Outcome: Progressing as expected Goal: Adequate oxygenation Outcome: Progressing as expected Goal: Adequate work of breathing Outcome: Progressing as expected Goal: Patent airway Outcome: Progressing as expected Problem: Procedure Routine Goal: Knowledge of procedure Outcome: Progressing as expected Problem: Discharge Planning Goal: Adequate for discharge Outcome: Progressing as expected Goal: Effective communication Outcome: Progressing as expected Problem: Fluid Volume - Imbalanced Goal: Absence of signs and symptoms of imbalanced fluid volume Outcome: Progressing as expected Problem: Glucose Control - Initiated in Adult CC Goal: Glucose level within specified parameters Outcome: Progressing as expected Problem: Infection, Risk of or Actual Goal: Absence of infection Outcome: Progressing as expected Problem: Pain Goal: Control of pain at or below patient's documented comfort goal Outcome: Progressing as expected Goal: Reduction in pain sensation Outcome: Progressing as expected Problem: Skin integrity Impaired (Risk or Actual) Goal: Wound healing Outcome: Progressing as expected Goal: Prevention of new skin breakdown Outcome: Progressing as expected RIOT Charu Weston Do, RN [facility] 2025-05-12 01:21:51 Problem: Falls, Risk of Goal: Absence of falls Outcome: Progressing as expected Steven Del Real RN [facility] 2025-05-11 18:25:22 Pt leaving with EMS @1825 for Damian RIOT Precious Bautista RN [facility] 2025-05-11 17:09:11 Problem: Falls, Risk of Goal: Absence of falls Outcome: Progressing as expected Problem: Respiratory Function - Impaired Goal: Able to cough effectively Outcome: Progressing as expected Goal: Adequate oxygenation Outcome: Progressing as expected Goal: Adequate work of breathing Outcome: Progressing as expected Goal: Patent airway Outcome: Progressing as expected Problem: Procedure Routine Goal: Knowledge of procedure Outcome: Progressing as expected Problem: Discharge Planning Goal: Adequate for discharge Outcome: Progressing as expected Goal: Effective communication Outcome: Progressing as expected Problem: Fluid Volume - Imbalanced Goal: Absence of signs and symptoms of imbalanced fluid volume Outcome: Progressing as expected Problem: Glucose Control - Initiated in Adult CC Goal: Glucose level within specified parameters Outcome: Progressing as expected Problem: Infection, Risk of or Actual Goal: Absence of infection Outcome: Progressing as expected Problem: Pain Goal: Control of pain at or below patient's documented comfort goal Outcome: Progressing as expected Goal: Reduction in pain sensation Outcome: Progressing as expected Problem: Skin integrity Impaired (Risk or Actual) Goal: Wound healing Outcome: Progressing as expected Goal: Prevention of new skin breakdown Outcome: Progressing as expected Problem: Venous Thromboembolism, (actual or risk of) Goal: Absence of venous thromboembolism (Risk) Outcome: Progressing as expected Problem: Inadequate Renal Function Goal: Maintain Renal Function Outcome: Progressing as expected [facility] 2025-05-11 16:44:54 JOAN Khoury given report. EMS ETA 2 hours [facility] 2025-05-10 23:04:38 Problem: Falls, Risk of Goal: Absence of falls Outcome: Progressing as expected Problem: Respiratory Function - Impaired Goal: Able to cough effectively Outcome: Progressing as expected Goal: Adequate oxygenation Outcome: Progressing as expected Goal: Adequate work of breathing Outcome: Progressing as expected Goal: Patent airway Outcome: Progressing as expected Problem: Procedure Routine Goal: Knowledge of procedure Outcome: Progressing as expected Problem: Discharge Planning Goal: Adequate for discharge Reactivated Goal: Effective communication Reactivated Problem: Fluid Volume - Imbalanced Goal: Absence of signs and symptoms of imbalanced fluid volume Reactivated Problem: Glucose Control - Initiated in Adult CC Goal: Glucose level within specified parameters Reactivated Problem: Infection, Risk of or Actual Goal: Absence of infection Reactivated Problem: Pain Goal: Control of pain at or below patient's documented comfort goal Reactivated Goal: Reduction in pain sensation Reactivated Problem: Skin integrity Impaired (Risk or Actual) Goal: Wound healing Reactivated Goal: Prevention of new skin breakdown Reactivated Problem: Venous Thromboembolism, (actual or risk of) Goal: Absence of venous thromboembolism (Risk) Reactivated Problem: Inadequate Renal Function Goal: Maintain Renal Function Reactivated Cecilia Grant RN [facility] 2025-05-10 19:23:07 HEMODIALYSIS NURSING NOTE Number Hours: 3.5 hours (2hrs HD and 1.5 ISOLATED UF) Bath: 3K 3 Calcium Heparin: treatment 2000 units given Access: left AVF upper arm Net UF: 3.5 L Weight: pre 86.5 kg, post 83 kg bed scale Post BP 142/95 Post Pulse 97 Antibiotics/Medications Given: none Complications/Events of Treatment: Complained of cramping during HD, resolved by UF off and decreasing the goal. Dr Crawford notified of the above. Patient denied complaints and tolerated treatment. Treatment completed, blood returned. [place] pulled without any issues. Site was held till bleeding stopped. Pressure dressing applied. Left patient in room without distress nor complications, bed in lowest position, side rails up x2, call downey within reach, and endorsed to primary RN. Verbal report to: JOAN Cunha Mode of Transport Back to Unit: NA - patient done at bedside ADC 210 See hemodialysis flowsheet for details of treatment. [facility] 2025-05-10 16:30:15 Problem: Procedure Routine Goal: Knowledge of procedure Outcome: Progressing as expected Hemodialysis Plan of care reviewed r/t treatment time, UF goal, and fluid restrictions. Also reviewed care of dialysis access during tx. Pt updated during tx as needed with teaching done. Also reviewed possible side effects of HD tx, such as s/s of hypotension, cramping (during tx and at rare times after tx), N/V, CP or any other concerns. Patient acknowledge understanding of treatment plan. [facility] 2025-05-10 06:21:44 Problem: Falls, Risk of Goal: Absence of falls Outcome: Progressing as expected [facility] 2025-05-10 04:48:34 Report to IMU no further questions at this time. T [facility] 2025-05-10 04:15:00 Patient placed on 3L, NC due to low oxygen saturation when sleeping. Patient denies using cpap for sleep apnea. T [facility] 2025-05-10 01:53:13 Patient comes in with shortness of breath, chest pain, cough and congestion that started about 2200 last night. Skin p/w/d, rr equal and non labored. A&Ox4. Nighat Posada RN [facility] 2025-05-10 01:44:00 Associated Order(s): EKG-12 Lead ROUTINE ONCE Pre-Procedure Diagnose(s): Chest pain in adult Post-Procedure Diagnose(s): Chest pain in adult [facility] Emergency Department Note Patient Name: Jeevan Ordaz Jr. Date of : 1970 54 year old male Treatment Room: CA1 Primary Care Physician: Pham Cole Patient Escorted by: Family [5] Mode of Arrival: Personal means [1] EMS Treatment Prior to ED Arrival: GRAIN WEIGHER treatment: None Travel and Exposure Screening: Symptoms Does patient have any of these symptoms?: (not recorded) Exposure Screening Has patient had contact with someone with a communicable disease in the last month?: (not recorded) Diseases exposed to:: (not recorded) Is Patient ?: (not recorded) Exposure Date: (not recorded) Chief Complaint: Chief Complaint Patient presents with Shortness of Breath Chest Pain History of Present Illness: History of Present Illness This is a patient with a history of congestive heart failure and diabetes presenting with chest pain and shortness of breath. The patient reports experiencing chest pain and difficulty breathing, which began around 9:30 or 10:00 on 05/10/2025. The chest pain is accompanied by shortness of breath. The patient asked his son to bring him to the emergency room due to these symptoms. He also mentions a mild cough and congestion, with expectoration of white mucus. The patient is currently undergoing dialysis and has a history of diabetes, with blood sugar levels ranging from 98 to 120 since starting dialysis. He has been experiencing swelling in both legs for approximately a month, which he attributes to fluid accumulation due to limited mobility. This condition led to a hospital admission a week ago. 54-year-old male comes the ER for evaluation of chest pain and shortness of breath that started at 10:00 today. Dialysis Monday. Patient missed dialysis on but he went to dialysis yesterday and he is also scheduled to go to dialysis today at 9:00 Past Medical History/Immunizations: Past Medical History: Diagnosis Date Depression Diabetes mellitus Diabetic retinopathy ED (erectile dysfunction) Hyperlipidemia Hypertension Legally blind Tetanus received in last 5 years: Unknown Allergies: No Known Allergies Past Social History: Tobacco Use Some Days; 1 pack/day; Smoked an average of 1 pack/day for 5.0 years; Types: Cigarettes Passive Exposure: Never Smokeless Tobacco: Never used smokeless tobacco. Alcohol [...] Left 02/29/2024 Surgeon: Andrei Yanes MD; Location: [facility] OR LOCATION DIRECT LARYNGOSCOPY N/A 01/08/2018 Surgeon: Petey Looney MD; Location: [facility] EYE SURGERY INCISION AND DRAINAGE OF ABSCESS Left 01/10/2018 Surgeon: Nitish Bajwa MD; Location: [facility] Location TUNNELED CATHETER (SHX) 02/02/2024 RT IJ tunneled HD catheter Review of Systems: Review of Systems Respiratory: Positive for cough and shortness of breath. Cardiovascular: Positive for chest pain. Physical Exam: Physical Exam Cardiovascular: Heart sounds regular, no murmurs noted Respiratory: Bilateral breath sounds clear, no wheezing or crackles Musculoskeletal: Bilateral leg swelling noted ED Triage Vitals [05/10/25 0150] Weight 77.1 kg (170 lb) Actual or estimated Estimated by patient/family report Height 1.727 m (5' 8") BP (!) 152/97 Pulse 110 Resp 16 Temp 36.6 ?C (97.8 ?F) Temp source Oral SpO2 96 % Measured on Room air Physical Exam Eyes: Pupils: Pupils are equal, round, and reactive to light. Cardiovascular: Rate and Rhythm: Tachycardia present. Pulmonary: Effort: Pulmonary effort is normal. No respiratory distress. Breath sounds: No stridor. Rales present. No wheezing or rhonchi. Abdominal: Palpations: Abdomen is soft. Tenderness: There is no abdominal tenderness. There is no right CVA tenderness, left CVA tenderness, guarding or rebound. Musculoskeletal: Cervical back: Normal range of motion and neck supple. Right lower leg: Edema (chronic) present. Left lower leg: Edema (chronic) present. Skin: General: Skin is warm. Capillary Refill: Capillary refill takes less than 2 seconds. Neurological: General: No focal deficit present. Mental Status: He is alert and oriented to person, place, and time. Sensory: No sensory deficit. Motor: Weakness present. Coordination: Coordination normal. Radiology: XR Chest 1 VW Final Result Ordering physician: JULIAN MORALES Indication: STEMI Comparison: Chest dated 03/20/2025 Technical quality: Adequate Findings: Single AP view of the chest. The cardiopericardial silhouette is mildly enlarged. The lungs are clear bilaterally. The visualized bony thorax is intact. IMPRESSION Impression: Mild cardiomegaly without radiographic evidence for acute pulmonary process. END REPORT RL: [id number] AFC: [id number] Lab Results: Lab Results TROPONIN I - Abnormal Result Value Ref Range TROPONIN I 0.051 (*) <=0.034 ng/mL CBC WITH DIFF - Abnormal WBC 6.86 4.20 - 10.70 10*3/?L RBC 3.70 (*) 4.26 - 5.52 10*6/?L HGB 10.7 (*) 12.2 - 16.4 g/dL HCT 35.0 (*) 38.4 - 49.3 % MCV 94.6 81.7 - 95.6 fL MCH 28.9 26.1 - 32.7 pg MCHC 30.6 (*) 31.2 - 35.0 g/dL RDW-SD 56.0 (*) 38.5 - 51.6 fL RDW-CV 16.3 (*) 12.1 - 15.4 % PLT 161 150 - 328 10*3/?L MPV 10.8 9.8 - 13.0 fL NRBC/100 WBC 0.0 0.0 - 10.0 /100 WBCs NRBC x10 3 <0.01 10*3/?L GRAN MAT (NEUT) % 70.9 % IMM GRAN % 0.30 % LYMPH % 13.0 % MONO % 11.5 % EOS % 3.6 % BASO % 0.7 % GRAN MAT x10 3 (ANC) 4.86 1.99 - 6.95 10*3/uL IMM GRAN x10 3 <0.03 0.00 - 0.06 10*3/uL LYMPH x10 3 0.89 (*) 1.09 - 3.23 10*3/uL MONO x10 3 0.79 0.36 - 1.02 10*3/uL EOS x10 3 0.25 0.06 - 0.53 10*3/uL BASO x10 3 0.05 0.01 - 0.09 10*3/uL COMP. METABOLIC PANEL (29994) - Abnormal NA 141 135 - 145 mmol/L K 3.9 3.5 - 5.0 mmol/L CL 98 98 - 108 mmol/L CO2 TOTAL 32 (*) 23 - 31 mmol/L AGAP 11 2 - 16 BUN 35 (*) 7 - 23 mg/dL GLUCOSE 118 (*) 70 - 110 mg/dL CREATININE 5.09 (*) 0.60 - 1.25 mg/dL TOTAL BILI 0.8 0.1 - 1.1 mg/dL CALCIUM 8.1 (*) 8.6 - 10.6 mg/dL T PROTEIN 7.9 6.3 - 8.2 g/dL ALBUMIN 4.1 3.5 - 5.0 g/dL ALK PHOS 142 (*) 34 - 122 U/L ALTv 15 5 - 50 U/L AST(SGOT) 30 13 - 40 U/L eGFR 12.7 mL/min/1.73m2 INFLUENZA A/B RSV COVID NAAT - Abnormal Influenza A NAAT Negative Negative Influenza B NAAT Negative Negative RSV by PCR Negative Negative SARS-CoV-2 NAAT Positive (*) Negative N-TERMINAL PRO-BNP EKG: If EKG completed, see Procedure Note. Orders and Treatments: Orders Placed This Encounter Procedures XR Chest 1 VW Troponin I CBC with Diff CMP Influenza A B RSV COVID NAAT N-TERMINAL PRO-BNP Orders Placed This Encounter Medications albuterol (PROVENTIL) 2.5 mg /3 mL (0.083 %) nebulizer solution 5 mg ipratropium (ATROVENT) 0.02 % nebulizer solution 0.5 mg dexamethasone sod phos PF injection 10 mg acetaminophen (TYLENOL) tablet 1,000 mg aspirin tablet 325 mg First Provider Eval: ED Events Date/Time Event User Comments 05/10/25 015 Medical Screening Begins JULIAN ESPINOSA -- 05/10/25 015 First Provider Evaluation JULIAN ESPINOSA -- ED COURSE ED Course as of 05/10/25 0320 Sat May 10, 2025 0309 IMPRESSION Impression: Mild cardiomegaly without radiographic evidence for acute pulmonary process. SOB and chest pain have improved 0 [CN] 0306 SARS-CoV-2 NAAT(!): Positive Satting 100% on room air [CN] 0258 TROPONIN I(!): 0.051 We will give asprin [CN] 0227 K: 3.9 K+ with in normal limits, also no EKG changes [CN] ED Course User Index [CN] Julian Morales FNP Diagnosis/Impression as of 05/10/25 0320 Chest pain in adult Shortness of breath COVID-19 Elevated troponin Results Procedures: EKG-12 Lead ROUTINE ONCE Date/Time: 05/10/2025 1:51 AM Performed by: Julian Morales FNP Authorized by: Julian Morales FNP ECG interpreted by ED Physician in the absence of a hydroelectric mechanic: yes Previous ECG: Previous ECG: Compared to current Similarity: No change Interpretation: Interpretation: abnormal Rate: ECG rate: 109 ECG rate assessment: tachycardic Rhythm: Rhythm: sinus tachycardia ST segments: ST segments: Non-specific MDM: Assessment & Plan Initial Assessment: Patient presents with chest pain, shortness of breath, cough, congestion, and bilateral leg swelling. Symptoms started around 9:30-10:00 PM. History of dialysis and diabetes. Differential Diagnosis: - Congestive heart failure: Fluid retention, leg swelling, shortness of breath. Blood work to evaluate. - Respiratory infection: Cough, congestion, white mucus. Monitor symptoms, consider further treatment. - Cardiac event: Chest pain. EKG performed, no heart attack. Blood work to follow up. ED Course: - EKG performed, no heart attack. - Blood work ordered. - Breathing treatments administered. - Steroid given for shortness of breath. Final Assessment: EKG performed, no heart attack. Blood work ordered. Breathing treatments and steroid administered for shortness of breath. Clinical Impression: - Chest pain - Shortness of breath - Congestion and cough - Bilateral leg swelling Disposition: Discharge: Home. Return if symptoms worsen or new symptoms develop. Follow-Up: Primary care physician for further evaluation and management. Patient Education: Discussed symptoms management, return precautions. Medical Decision Making 54-year-old male is here in the ER for evaluation of chest pain shortness of breath that started at 10:00. On evaluation patient does have crackles at the bases of his lung, EKG was done with sinus tach at 109, otherwise patient satting 96% on room air. Cardiac workup, dyspnea workup started. differential diagnosis include but not limited to, STEMI, NSTEMI, volume overload needing emergent dialysis, pneumonia, viral syndrome. EKG reviewed compared to previous EKG no changes, no acute prolonged QT. BMP and troponin and chest x-ray. 0254 Patient stating that he feels much better all his symptoms have resolved. Chest Pain In Adult 0320 So patient stating that all his symptoms have resolved, the chest pain shortness of breath have all resolved. Discussed with the patient informed him that his positive COVID also his troponin is elevated and needs to be admitted for further evaluation, patient agreeable to the plan. Dx Shortness Of Breath Elevated Troponin COVID-19 ? Problems Addressed: COVID-19: acute illness or injury Elevated troponin: acute illness or injury Amount and/or Complexity of Data Reviewed Labs: ordered. Decision-making details documented in ED Course. Radiology: ordered. Decision-making details documented in ED Course. Risk OTC drugs. Prescription drug management. Decision regarding hospitalization. Flowsheet Documentation: Scoring Tools: No data recorded Disposition/Condition: ED Disposition ED Disposition Admit - Inpatient Condition Stable Comment -- Discharge Medications: Patient's Medications START taking these medications No medications on file CONTINUE taking these medications which have NOT CHANGED AMITRIPTYLINE 25 MG TABLET Take 1 tablet by mouth in the morning. ATORVASTATIN 20 MG TABLET Take 1 tablet by mouth at bedtime. BLOOD SUGAR DIAGNOSTIC STRIP Check sugars 2-3 [...] capsule in the evening. Take with meals. DESLORATADINE 5 MG TABLET Take 1 tablet by mouth in the morning. FLUTICASONE PROPIONATE 50 MCG/ACTUATION NASAL SPRAY Use 1 Isabela in each nostril in the morning. GABAPENTIN 100 MG CAPSULE Take 1 capsule by mouth at bedtime. INSULIN LISPRO, HUMAN, 100 UNIT/ML INJECTION inject 2 Units under the skin in the morning and 2 Units at noon and 2 Units in the evening. inject before meals. LANCETS (FREESTYLE LANCETS) [address] [facility] USE ONE LANCET TO CHECK BLOOD GLUCOSE 2 TO 3 TIMES A DAY LATANOPROST 0.005 % OPHTHALMIC DROPS Place 1 Drop in both eyes every evening. MELATONIN 3 MG TABLET Take 2 tablets by mouth at bedtime. METHOCARBAMOL 500 MG TABLET Take 2 tablets by mouth 4 times daily. As needed PRAMIPEXOLE 0.125 MG TABLET Take 1 tablet by mouth at bedtime. PREGABALIN 25 MG CAPSULE Take 1 capsule by mouth in the morning. SODIUM BICARBONATE 650 MG TABLET TAKE 1 TABLET BY MOUTH IN THE MORNING AND 1 AT NOON AND 1 IN THE EVENING WITH MEALS START taking Modified Medications as Prescribed No medications on file STOP taking these medications No medications on file Follow-up: Electronically signed by: Julian Morales FNP 05/10/25 0321 Cosigned by Berenice Asher DO at 05/10/2025 4:17 AM CDT Associated attestation - Berenice Asher DO - 05/10/2025 4:17 AM CDT I was personally available for consultation in the Emergency Department during this encounter and patient evaluation by Julian Morales. [facility] 2025-05-05 23:55:17 PT DISCHARGE VIA WHEELCHAIR WITH FAMILY. PT VERBALIZED UNDERSTANDING OF D/C INSTRUCTIONS. NO ACUTE DISTRESS NOTED UPON D/C Judi North RN [facility] 2025-05-05 22:15:19 Report given to JOAN Venegas Christina Pizarro RN [facility] 2025-05-05 21:17:46 Pt has attempted to urinate three times, states he only urinates a small amount every other day. Provider notified. [facility] 2025-05-05 19:56:22 Swelling to the testicles for month. Nesha Huber RN [facility] 2025-03-20 06:26:20 Pt given printed and verbal discharge instructions regarding rib pain, chest wall pain, ESRD needing dialysis Advised to seek medical attention for new/prolonged/worsening of symptoms PIV d'cd, dressing to site, catheter in tact. Awake, alert oriented, resp reg unlabored, skin w/d, pt leaving amb with steady gait, in no apparent distress Porsha Briones RN [facility] 2025-03-20 03:58:57 Pt arrives ambulatory to ED c/o left side rib pain after a fall in the shower about a week ago. Pt was seen after the fall, however pt states the pain has gotten worse and he has been unable to sleep. Pt also states he is a dialysis pt T,, Mon. States he has not gone to dialysis since last Monday d/t the pain. Lola Ahser RN [facility] 2025-03-20 03:49:00 [facility] Emergency Department Note Patient Name: Jeevan Ordaz Jr. Date of : 1970 54 year old male Treatment Room: TX2 Primary Care Physician: Jeremiah Crawford Patient Escorted by: Family [5] Mode of Arrival: Personal means [1] EMS Treatment Prior to ED Arrival: GRAIN WEIGHER treatment: None Travel and Exposure Screening: Symptoms Does patient have any of these symptoms?: (not recorded) Exposure Screening Has patient had contact with someone with a communicable disease in the last month?: (not recorded) Diseases exposed to:: (not recorded) Is Patient ?: (not recorded) Exposure Date: (not recorded) Chief Complaint: Chief Complaint Patient presents with Pain Left side ribs History of Present Illness: History of Present Illness Jeevan Ordaz Jr. is a 54 year old male who presents to the ED for evaluation of continuing left sided chest wall,rib pain following a fall about one week ago. Pt was evaluated for same at that time and CT and Xray were both negative for acute traumatic injury. Pt claims his pain is still severe 03/20 prompting ED visit. No new trauma or injury.. 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 Chest Pain Pain location: L lateral chest Pain quality: sharp Pain radiates to: Does not radiate Pain severity: Severe Onset quality: Gradual Duration: 7 days Timing: Constant Chronicity: New Context: breathing and at rest Relieved by: Nothing Worsened by: Nothing Ineffective treatments: None tried Associated symptoms: no anxiety, no back pain, no claudication, no cough and no diaphoresis Past Medical History/Immunizations: Past Medical History: Diagnosis Date Depression Diabetes mellitus Diabetic retinopathy ED (erectile dysfunction) Hyperlipidemia Hypertension Legally blind Tetanus received in last 5 years: Unknown Allergies: No Known Allergies Past Social History: Tobacco Use Some Days; 1 pack/day; Smoked an average of 1 pack/day for 5.0 years; Types: Cigarettes Passive Exposure: Never Smokeless Tobacco: Never used smokeless tobacco. Alcohol [...] Left 02/29/2024 Surgeon: Andrei Yanes MD; Location: [facility] OR LOCATION DIRECT LARYNGOSCOPY N/A 01/08/2018 Surgeon: Petey Looney MD; Location: [facility] EYE SURGERY INCISION AND DRAINAGE OF ABSCESS Left 01/10/2018 Surgeon: Nitish Bajwa MD; Location: [facility] TUNNELED CATHETER (SHX) 02/02/2024 RT IJ tunneled HD catheter Review of Systems: Review of Systems Constitutional: Negative. Negative for diaphoresis. HENT: Negative. Eyes: Negative. Respiratory: Negative. Negative for cough. Breasts: Negative. Cardiovascular: Positive for chest pain. Negative for claudication. Gastrointestinal: Negative. Genitourinary: Negative. Musculoskeletal: Negative. Negative for back pain. Skin: Negative. Negative for color change. Neurological: Negative. Psychiatric/Behavioral: Negative. All other systems reviewed and are negative. Endocrine: Endocrine negative Physical Exam: Physical Exam ED Triage Vitals [03/20/25 0403] Weight 79.4 kg (175 lb) Actual or estimated Estimated by patient/family report Height 1.727 m (5' 8") BP (!) 173/114 Pulse 109 Resp 20 Temp 36.7 ?C (98.1 ?F) Temp source Oral SpO2 96 % Measured on Room air Physical Exam Vitals and nursing note reviewed. Constitutional: General: He is not in acute distress. Appearance: Normal appearance. He is well-developed and normal weight. He is not ill-appearing, toxic-appearing or diaphoretic. HENT: Head: Normocephalic and atraumatic. Nose: Nose normal. No congestion or rhinorrhea. Mouth/Throat: Mouth: Mucous membranes are moist. Pharynx: No oropharyngeal exudate or posterior oropharyngeal erythema. Eyes: General: No scleral icterus. Right eye: No discharge. Left eye: No discharge. Extraocular Movements: Extraocular movements intact. Conjunctiva/sclera: Conjunctivae normal. Pupils: Pupils are equal, round, and reactive to light. Cardiovascular: Rate and Rhythm: Normal rate and regular rhythm. Pulses: Normal pulses. Heart sounds: Normal heart sounds. No murmur heard. Pulmonary: Effort: Pulmonary effort is normal. No respiratory distress. Breath sounds: Normal breath sounds. No stridor. No wheezing, rhonchi or rales. Chest: Chest wall: No tenderness. Abdominal: General: Bowel sounds are normal. There is no distension. Palpations: Abdomen is soft. There is no mass. Tenderness: There is no abdominal tenderness. There is no right CVA tenderness, left CVA tenderness, guarding or rebound. Hernia: No hernia is present. Musculoskeletal: General: No swelling, tenderness or deformity. Normal range of motion. Cervical back: Normal range of motion and neck supple. No rigidity or tenderness. Lymphadenopathy: Cervical: No cervical adenopathy. Skin: General: Skin is warm and dry. Capillary Refill: Capillary refill takes less than 2 seconds. Coloration: Skin is not jaundiced or pale. Findings: No bruising, erythema, lesion or rash. Neurological: General: No focal deficit present. Mental Status: He is alert and oriented to person, place, and time. Psychiatric: Behavior: Behavior normal. Thought Content: Thought content normal. Judgment: Judgment normal. Radiology: XR Chest 1 vw Preliminary Result EXAM: XR CHEST 1 VW COMPARISON: Prior chest radiograph dated 03/30/2025, CT chest dated 03/11/2025 HISTORY: Fall one week ago, sustaining injury to left chest wall/ribs, now presenting with SOB. Also has ESRD on HD FINDINGS: No lines or tubes are present. The lungs are adequately expanded. There is central pulmonary vascular congestion without overt edema. No consolidation. No pleural effusion or pneumothorax. The cardiac silhouette is mildly enlarged. No displaced rib fractures. No acute osseous abnormality. Degenerative changes of the shoulder joints. IMPRESSION Pulmonary vascular congestion without overt edema. Stable cardiomegaly. No new acute process or evidence of acute traumatic injury. Preliminary Report Dictated by Resident: Madi Dupree Lab Results: Lab Results CBC WITH DIFF - Abnormal Result Value Ref Range WBC 8.18 4.20 - 10.70 10*3/?L RBC 4.48 4.26 - 5.52 10*6/?L HGB 12.4 12.2 - 16.4 g/dL HCT 39.9 38.4 - 49.3 % MCV 89.1 81.7 - 95.6 fL MCH 27.7 26.1 - 32.7 pg MCHC 31.1 (*) 31.2 - 35.0 g/dL RDW-SD 49.1 38.5 - 51.6 fL RDW-CV 15.3 12.1 - 15.4 % PLT 145 (*) 150 - 328 10*3/?L MPV 11.2 9.8 - 13.0 fL NRBC/100 WBC 0.0 0.0 - 10.0 /100 WBCs NRBC x10 3 <0.01 10*3/?L GRAN MAT (NEUT) % 76.4 % IMM GRAN % 0.40 % LYMPH % 11.7 % MONO % 8.9 % EOS % 2.0 % BASO % 0.6 % GRAN MAT x10 3 (ANC) 6.25 1.99 - 6.95 10*3/uL IMM GRAN x10 3 0.03 0.00 - 0.06 10*3/uL LYMPH x10 3 0.96 (*) 1.09 - 3.23 10*3/uL MONO x10 3 0.73 0.36 - 1.02 10*3/uL EOS x10 3 0.16 0.06 - 0.53 10*3/uL BASO x10 3 0.05 0.01 - 0.09 10*3/uL BASIC METABOLIC PANEL (NA, K, CL, CO2, GLUCOSE, BUN, CREATININE, CA) - Abnormal NA 139 135 - 145 mmol/L K 5.2 (*) 3.5 - 5.0 mmol/L CL 99 98 - 108 mmol/L CO2 TOTAL 23 23 - 31 mmol/L AGAP 17 (*) 2 - 16 BUN 78 (*) 7 - 23 mg/dL GLUCOSE 168 (*) 70 - 110 mg/dL CREATININE 12.88 (*) 0.60 - 1.25 mg/dL CALCIUM 7.9 (*) 8.6 - 10.6 mg/dL eGFR 4.2 mL/min/1.73m2 EKG: If EKG completed, see Procedure Note. Orders and Treatments: Orders Placed This Encounter Procedures XR Chest 1 vw Cbc with Diff Basic Metabolic Panel (NA, K, CL, CO2, GLUCOSE, BUN, CREATININE, CA) No orders of the defined types were placed in this encounter. First Provider Eval: ED Events Date/Time Event User Comments 03/20/25403 Medical Screening Begins PAMELLA JOHNS MD -- 03/20/25403 First Provider Evaluation PAMELLA JOHNS MD -- ED COURSE Diagnosis/Impression as of 03/20/25 0619 ESRD (end stage renal disease) Chest wall pain Rib pain on left side Hyperkalemia ESRD needing dialysis Results Procedures: Procedures MDM: Assessment & Plan Medical Decision Making Jeevan Ordaz Jr. is a 54 year old male who presents to the ED with continuing left rib cage pain X 1 week Problems Addressed: Chest wall pain: acute illness or injury ESRD needing dialysis: chronic illness or injury Hyperkalemia: chronic illness or injury Rib pain on left side: acute illness or injury Amount and/or Complexity of Data Reviewed Labs: ordered. Radiology: ordered. Flowsheet Documentation: Scoring Tools: No data recorded Disposition/Condition: ED Disposition ED Disposition Discharge Condition Stable Comment -- Discharge Medications: Patient's Medications START taking these medications No medications on file CONTINUE taking these medications which have NOT CHANGED AMITRIPTYLINE 25 MG TABLET Take 1 tablet by mouth in the morning. AMLODIPINE 5 MG TABLET Take 1 tablet by mouth in the morning for 30 days. ATORVASTATIN 20 MG TABLET Take 1 tablet by mouth at bedtime. BLOOD SUGAR DIAGNOSTIC STRIP Check sugars 2-3 [...] capsule in the evening. Take with meals. CARVEDILOL 12.5 MG TABLET Take 1 tablet by mouth in the morning and 1 tablet in the evening. Take with meals. Do all this for 30 days. DESLORATADINE 5 MG TABLET Take 1 tablet by mouth in the morning. FLUTICASONE PROPIONATE 50 MCG/ACTUATION NASAL SPRAY Use 1 Isabela in each nostril in the morning. GABAPENTIN 100 MG CAPSULE Take 1 capsule by mouth at bedtime. INSULIN LISPRO, HUMAN, 100 UNIT/ML INJECTION inject 2 Units under the skin in the morning and 2 Units at noon and 2 Units in the evening. inject before meals. LANCETS (FREESTYLE LANCETS) [address] [facility] USE ONE LANCET TO CHECK BLOOD GLUCOSE 2 TO 3 TIMES A DAY LATANOPROST 0.005 % OPHTHALMIC DROPS Place 1 Drop in both eyes every evening. MELATONIN 3 MG TABLET Take 2 tablets by mouth at bedtime. METHOCARBAMOL 500 MG TABLET Take 2 tablets by mouth 4 times daily. As needed PRAMIPEXOLE 0.125 MG TABLET Take 1 tablet by mouth at bedtime. PREGABALIN 25 MG CAPSULE Take 1 capsule by mouth in the morning. SODIUM BICARBONATE 650 MG TABLET TAKE 1 TABLET BY MOUTH IN THE MORNING AND 1 AT NOON AND 1 IN THE EVENING WITH MEALS START taking Modified Medications as Prescribed No medications on file STOP taking these medications No medications on file Follow-up: Contact information for follow-up Jeremiah Crawford DO Specialty: NEPHROLOGY Relationship: PCP - [facility] [address] [place] [address] [place] [address] Electronically signed by: Pamella Johns MD 03/20/25618 [facility] 2025-03-19 08:37:31 ----- Message from Malissa Roche sent at 03/17/2025 8:39 AM CDT ----- Regarding: RE: Follow up appt Left detailed voicemail on patients phone to call us back at the clinic ([phone]) to schedule a f/u with Dr. Smith, when patient calls back we will forward him to vascular surgery at [phone] ----- Message ----- From: Frederick Sebastian MD Sent: 03/14/2025 9:16 PM CDT To: [facility] Subject: Follow up appt Please make follow up appt with Dr Smith. Also needs vascular surgery appt. Referral placed. Please pass this to vascular surgery PSS. [facility] [place] [facility] 2025-03-14 13:10:45 Problem: Falls, Risk of Goal: Absence of falls Outcome: Resolved Problem: Skin integrity Impaired (Risk or Actual) Goal: Wound healing Outcome: Resolved Goal: Prevention of new skin breakdown Outcome: Resolved Problem: Pain Goal: Control of pain at or below patient's documented comfort goal Outcome: Resolved Goal: Reduction in pain sensation Outcome: Resolved Problem: Venous Thromboembolism, (actual or risk of) Goal: Absence of venous thromboembolism (Risk) Outcome: Resolved Problem: Fluid Volume - Imbalanced Goal: Absence of imbalanced fluid volume signs and symptoms Outcome: Resolved Problem: Discharge Planning Goal: Adequate for discharge Outcome: Resolved Goal: Effective communication Outcome: Resolved Problem: Procedure Routine Goal: Knowledge of procedure Outcome: Resolved Guerline Bullock RN [facility] 2025-03-13 23:41:50 Problem: Falls, Risk of Goal: Absence of falls Outcome: Progressing as expected Problem: Skin integrity Impaired (Risk or Actual) Goal: Wound healing Outcome: Progressing as expected Goal: Prevention of new skin breakdown Outcome: Progressing as expected Problem: Pain Goal: Control of pain at or below patient's documented comfort goal Outcome: Progressing as expected Goal: Reduction in pain sensation Outcome: Progressing as expected Problem: Venous Thromboembolism, (actual or risk of) Goal: Absence of venous thromboembolism (Risk) Outcome: Progressing as expected Problem: Fluid Volume - Imbalanced Goal: Absence of imbalanced fluid volume signs and symptoms Outcome: Progressing as expected Problem: Discharge Planning Goal: Adequate for discharge Outcome: Progressing as expected Goal: Effective communication Outcome: Progressing as expected Problem: Procedure Routine Goal: Knowledge of procedure Outcome: Progressing as expected Lola Easley RN [facility] 2025-03-13 12:33:00 HEMODIALYSIS NURSING NOTE Number Hours: 3.0 hours Bath: 2K 3 Calcium (standard dialysate) Heparin: zero Access: left AVF upper arm Net UF: 2000 Weight: pre 79 kg, post 77 kg Post BP 149/85 Post Pulse 83 Antibiotics/Medications Given: see MAR Complications/Events of Treatment: AV access working well, no infection noted, and cannulated without any issues. HD treatment completed and tolerated well without complications.Removed needles post treatment and applied pressure for 10 min. No active nor prolong bleeding noted. Secured punctured site well. Left patient vitally stable and no signs of distress noted. Verbal Report: JOAN Vigil Mode of Transport Back to Unit: NA - patient done at bedside See hemodialysis flowsheet for details of treatment. [facility] 2025-03-13 08:53:27 Problem: Procedure Routine Goal: Knowledge of procedure Outcome: Progressing as expected Hemodialysis Plan of care reviewed r/t treatment time & UF goal. Also reviewed possible side effects of HD tx, such as s/s of hypotension, cramping (during tx and at rare times after tx), N/V, CP or any other concerns. Patient acknowledge understanding of treatment plan. [facility] 2025-03-13 04:15:11 Problem: Falls, Risk of Goal: Absence of falls Outcome: Progressing as expected Problem: Skin integrity Impaired (Risk or Actual) Goal: Wound healing Outcome: Progressing as expected Goal: Prevention of new skin breakdown Outcome: Progressing as expected Problem: Pain Goal: Control of pain at or below patient's documented comfort goal Outcome: Progressing as expected Goal: Reduction in pain sensation Outcome: Progressing as expected Problem: Venous Thromboembolism, (actual or risk of) Goal: Absence of venous thromboembolism (Risk) Outcome: Progressing as expected Problem: Fluid Volume - Imbalanced Goal: Absence of imbalanced fluid volume signs and symptoms Outcome: Progressing as expected Problem: Discharge Planning Goal: Adequate for discharge Outcome: Progressing as expected Goal: Effective communication Outcome: Progressing as expected Problem: Procedure Routine Goal: Knowledge of procedure Outcome: Progressing as expected Windy Brito RN [facility] 2025-03-12 15:15:21 Images from the original note were not included. Pharmacy Recommendations for Patient Admission: No recommendations. The [facility] medication list has been updated and reflected in the chart below. Please use the [facility] Med List for ordering home doses during admission. Patient Adherence: Completely Non-Adherent to some medications. Source(s) used in interview: Patient and Outpatient Pharmacy Interview limitations: None Medications Added Medications Removed Medications Modified None None None Allergies as of 03/11/2025 (No Known Allergies) Pharmacy Updated [id number] Med List Medication Sig amitriptyline 25 mg tablet Take 1 tablet by mouth in the morning. amLODIPine 10 mg tablet Take 1 tablet by mouth every morning and evening. desloratadine 5 mg tablet Take 1 tablet by mouth in the morning. fluticasone propionate 50 mcg/actuation nasal spray Use 1 Isabela in each nostril in the morning. gabapentin 100 mg capsule Take 1 capsule by mouth at bedtime. olmesartan 20 mg tablet Take 1 tablet by mouth at bedtime. pramipexole 0.125 mg tablet Take 1 tablet by mouth at bedtime. pregabalin 25 mg capsule Take 1 capsule by mouth in the morning. methocarbamoL 500 mg tablet Take 2 tablets by mouth 4 times daily. As needed calcium acetate,phosphat bind, 667 mg capsule Take 1 capsule by mouth in the morning and 1 capsule at noon and 1 capsule in the evening. Take with meals. latanoprost 0.005 % ophthalmic drops Place 1 Drop in both eyes every evening. sodium bicarbonate 650 mg tablet TAKE 1 TABLET BY MOUTH IN THE MORNING AND 1 AT NOON AND 1 IN THE EVENING WITH MEALS lancets (FREESTYLE LANCETS) 28 gauge [facility] USE ONE LANCET TO CHECK BLOOD GLUCOSE 2 TO 3 TIMES A DAY blood sugar diagnostic strip Check sugars 2-3 times a day. Dx Code E11.9. Brand per insurance. Patient has uncontrolled diabetes and needs to check sugars at least 2 times a day. ACCU-CHEK- same brand as meter Blood-Glucose Meter Kit Check sugars 2-3 times a day. Dx Code E11.9. Brand per insurance. Patient has uncontrolled diabetes and needs to check sugars at least 2 times a day. ACCU-CHEK sildenafiL (VIAGRA) 100 mg tablet Take 1 tablet by mouth daily. lisinopriL-hydrochlorothiaz margarita 20-25 mg per tablet Take 1 tablet by mouth daily. atorvastatin 20 mg tablet Take 1 tablet by mouth at bedtime. Outpatient Pharmacy Contact Information: [facility] [address] [place] [id number] Thank you for the opportunity to participate in the care of this patient. Jadyn Hua RPH 3:14 PM, 03/12/2025 [facility] Department of Pharmacy - [facility] Phone: ADC: [phone] Jadyn Hua [facility] 2025-03-12 13:55:02 HEMODIALYSIS NURSING NOTE Number Hours: 2.5 hours Bath: 2K 3 Calcium (standard dialysate) Heparin: zero Access: left AVF upper arm Net UF: 1000 ml Weight: pre 78.5 kg, post 77.5 kg (bed scale) Post HD: BP 148/87 Pulse 83 Medications Given: None Complications/Events of Treatment: No issues with AV access cannulation. Treatment completed. Blood returned. AV needles pulled, pressure & dressing applied on site. No prolonged bleeding noted.Left patient in room without distress nor complications, bed in lowest position, side rails up x2, call downey within reach, and endorsed to primary RN. Verbal report given to: JOAN Jordan Mode of Transport Back to Unit: NA - patient done at bedside See hemodialysis flowsheet for further details of the treatment. RIOT Ritchie Ross RN [facility] 2025-03-12 12:49:28 Problem: Procedure Routine Goal: Knowledge of procedure Outcome: Progressing as expected Hemodialysis Plan of care reviewed r/t treatment time & UF goal. Also reviewed possible side effects of HD tx, such as s/s of hypotension, cramping (during tx and at rare times after tx), N/V, CP or any other concerns. Patient acknowledge understanding of treatment plan. AS [facility] 2025-03-12 09:10:08 Problem: Falls, Risk of Goal: Absence of falls Outcome: Progressing as expected Problem: Skin integrity Impaired (Risk or Actual) Goal: Wound healing Outcome: Progressing as expected Goal: Prevention of new skin breakdown Outcome: Progressing as expected Problem: Pain Goal: Control of pain at or below patient's documented comfort goal Outcome: Progressing as expected Goal: Reduction in pain sensation Outcome: Progressing as expected Problem: Venous Thromboembolism, (actual or risk of) Goal: Absence of venous thromboembolism (Risk) Outcome: Progressing as expected Problem: Fluid Volume - Imbalanced Goal: Absence of imbalanced fluid volume signs and symptoms Outcome: Progressing as expected Problem: Discharge Planning Goal: Adequate for discharge Outcome: Progressing as expected Goal: Effective communication Outcome: Progressing as expected Problem: Procedure Routine Goal: Knowledge of procedure Outcome: Progressing as expected [facility] [place] [facility] 2025-03-12 04:39:00 Problem: Falls, Risk of Goal: Absence of falls Outcome: Progressing as expected Problem: Skin integrity Impaired (Risk or Actual) Goal: Wound healing Outcome: Progressing as expected Goal: Prevention of new skin breakdown Outcome: Progressing as expected Problem: Pain Goal: Control of pain at or below patient's documented comfort goal Outcome: Progressing as expected Goal: Reduction in pain sensation Outcome: Progressing as expected Problem: Venous Thromboembolism, (actual or risk of) Goal: Absence of venous thromboembolism (Risk) Outcome: Progressing as expected Problem: Fluid Volume - Imbalanced Goal: Absence of imbalanced fluid volume signs and symptoms Outcome: Progressing as expected Problem: Discharge Planning Goal: Adequate for discharge Outcome: Progressing as expected Goal: Effective communication Outcome: Progressing as expected Problem: Procedure Routine Goal: Knowledge of procedure Outcome: Progressing as expected [facility] Arleth Lancaster RN [facility] 2025-03-11 16:53:18 HEMODIALYSIS NURSING NOTE Number Hours: 3.0 hours Bath: 2K 3 Calcium (standard dialysate) Heparin: zero Access: left AVF upper arm Net UF: 3 L Weight: pre 80 kg, post 77 kg bed scale Post BP 156/88 Post Pulse 100 Antibiotics/Medications Given: none Complications/Events of Treatment: none. Patient denied complaints and tolerated treatment. Treatment completed, blood returned. [place] pulled without any issues. Site was held till bleeding stopped. Pressure dressing applied. Left patient in room without distress nor complications, bed in lowest position, side rails up x2, call downey within reach, and endorsed to primary RN. Verbal report to: JOAN Jordan Mode of Transport Back to Unit: NA - patient done at bedside [facility] ICU 2111 See hemodialysis flowsheet for details of treatment. [facility] 2025-03-11 13:37:39 Problem: Procedure Routine Goal: Knowledge of procedure Outcome: Progressing as expected Hemodialysis Plan of care reviewed r/t treatment time, UF goal, and fluid restrictions. Also reviewed care of dialysis access during tx. Pt updated during tx as needed with teaching done. Also reviewed possible side effects of HD tx, such as s/s of hypotension, cramping (during tx and at rare times after tx), N/V, CP or any other concerns. Patient acknowledge understanding of treatment plan. T [facility] 2025-03-11 13:31:03 Problem: Falls, Risk of Goal: Absence of falls Outcome: Progressing as expected Problem: Skin integrity Impaired (Risk or Actual) Goal: Wound healing Outcome: Progressing as expected Goal: Prevention of new skin breakdown Outcome: Progressing as expected Problem: Pain Goal: Control of pain at or below patient's documented comfort goal Outcome: Progressing as expected Goal: Reduction in pain sensation Outcome: Progressing as expected Problem: Venous Thromboembolism, (actual or risk of) Goal: Absence of venous thromboembolism (Risk) Outcome: Progressing as expected Problem: Fluid Volume - Imbalanced Goal: Absence of imbalanced fluid volume signs and symptoms Outcome: Progressing as expected Problem: Discharge Planning Goal: Adequate for discharge Outcome: Progressing as expected Goal: Effective communication Outcome: Progressing as expected [facility] 2025-03-11 12:46:58 Summary: Consent Consent signed for dialysis and blood if needed T Francoise Albrecht RN [facility] 2025-03-11 12:46:04 Summary: Admit Patient admitted to 2111 for diagnosis of hyperkalemia Patient agrees to admission, discussed plan of care with patient and family. Patient is awake, alert, oriented, resp reg unlabored, color appropriate for race, PIV intact No adverse reaction to medications administered while in ED Belongings with patient to unit Report to JOAN Jordan [facility] 2025-03-11 12:36:04 Summary: patient given food and coffee Patient given crackers and coffee provider ok'd patient to eat [facility] 2025-03-11 12:34:53 Summary: Provider at the beside Dr Smith at the bedside [facility] 2025-03-11 09:15:12 Slip and fall in shower. -LOC, hit left side/chest. Left rib pain. Patient also reports he fell last week, contusion noted to back. No other obvious injuries. EMS gave 50mcg Fentanyl GRAIN WEIGHER. HX: HTN, ESRD on HD (TTHS), -thinners. Talisha Lim RN [facility] 2025-03-11 09:11:00 Associated Order(s): EKG-12 Lead ROUTINE ONCE Pre-Procedure Diagnose(s): Hyperkalemia Post-Procedure Diagnose(s): Hyperkalemia Images from the original note were not included. [facility] Emergency Department Note Patient Name: Jeevan Ordaz Jr. Date of : 1970 54 year old male Treatment Room: [address] [place] [address] Primary Care Physician: Jeremiah Crawford Patient Escorted by: Family [5] Mode of Arrival: EMS - [facility] [43] EMS Treatment Prior to ED Arrival: GRAIN WEIGHER treatment comments: Fentanyl 50mcg Travel and Exposure Screening: Symptoms Does patient have any of these symptoms?: (not recorded) Exposure Screening Has patient had contact with someone with a communicable disease in the last month?: (not recorded) Diseases exposed to:: (not recorded) Is Patient ?: (not recorded) Exposure Date: (not recorded) Chief Complaint: Chief Complaint Patient presents with Fall History of Present Illness: History of Present Illness Jeevan Ordaz Jr. is a 54-year-old male with a history of hypertension, diabetes, and ESRD who presents after slipping and falling in the shower. He reports no loss of consciousness and denies any head injury. He fell onto his left side hitting his chest on the tub, reporting severe pain rated 10/10 in the left rib cage area. He also mentions a fall last week. The patient missed his dialysis session today. He denies chest pain or shortness of breath. History provided by: Patient and caregiver vehicle detailer used: No Past Medical History/Immunizations: Past Medical History: Diagnosis Date Depression Diabetes mellitus Diabetic retinopathy ED (erectile dysfunction) Hyperlipidemia Hypertension Legally blind Tetanus received in last 5 years: Yes Allergies: No Known Allergies Past Social History: Tobacco Use Some Days; 1 pack/day; Smoked an average of 1 pack/day for 5.0 years; Types: Cigarettes Passive Exposure: Never Smokeless Tobacco: Never used smokeless tobacco. Tobacco Cessation: Ready to quit: No; Counseling given: Yes Alcohol Use Yes; 12.0 standard drinks of alcohol per week; 12 Cans of beer. Comments: was drinking daily, now a couple days a week Drug Use Yes; Marijuana, Cocaine. Comments: smoked majuriuana and did cocaine in 20s but not anymore Past Surgical History: Past Surgical History: Procedure Laterality Date ARTERIOVENOUS FISTULA CREATION Left 02/29/2024 Surgeon: Andrei Yanes MD; Location: [facility] OR LOCATION DIRECT LARYNGOSCOPY N/A 01/08/2018 Surgeon: Petey Looney MD; Location: [facility] EYE SURGERY INCISION AND DRAINAGE OF ABSCESS Left 01/10/2018 Surgeon: Nitish Bajwa MD; Location: [facility] TUNNELED CATHETER (SHX) 02/02/2024 RT IJ tunneled HD catheter Review of Systems: Review of Systems Constitutional: Negative for activity change. Respiratory: Negative for chest tightness and shortness of breath. Cardiovascular: Negative for chest pain. Musculoskeletal: Positive for myalgias (Left-sided rib cage). Skin: Positive for color change (Mild bruising left side chest wall). Neurological: Negative for dizziness. Psychiatric/Behavioral: Negative for agitation, behavioral problems and confusion. Physical Exam: Physical Exam ED Triage Vitals [03/11/25 0913] Weight 80.7 kg (178 lb) Actual or estimated Height 1.702 m (5' 7") BP (!) 151/109 Pulse 106 Resp 20 Temp 36.9 ?C (98.5 ?F) Temp source Oral SpO2 97 % Measured on Room air Physical Exam Constitutional: General: He is in acute distress. HENT: Head: Normocephalic and atraumatic. Cardiovascular: Rate and Rhythm: Tachycardia present. Pulmonary: Effort: No respiratory distress. Breath sounds: Normal breath sounds. Chest: Chest wall: Swelling and tenderness (Left-sided chest wall) present. No lacerations. Musculoskeletal: General: Tenderness (Left side rib cage) present. Cervical back: No tenderness. Skin: General: Skin is warm. Findings: Bruising (Left side chest wall) and erythema present. Neurological: General: No focal deficit present. Mental Status: He is alert and oriented to person, place, and time. Radiology: CT Thorax wo contrast Final Result PROCEDURE: CT CHEST WITHOUT CONTRAST - CHEST PROTOCOL CLINICAL INDICATION: fall , left chest contusion Comparison: None TECHNIQUE: Volumetric images of the chest were acquired (from lung apices to bases).Images were reconstructed at 2.5 mm slice thickness. MIP axial images, coronal and sagittal reformats were also submitted for interpretation. FINDINGS: Devices: None LUNGS AND PLEURA: Moderate right pleural effusion with associated compressive atelectasis. The left lung is clear apart from mild basilar atelectasis. No focal opacities are identified. No suspicious nodules. LYMPH NODES: Scattered small lymph nodes in both sides of the mediastinum and hilar regions. No evidence of intrathoracic lymphadenopathy. MEDIASTINUM AND LOWER NECK: No central airway lesions are detected. The esophagus is within normal limits. The included thyroid gland appears normal. HEART AND GREAT VESSELS: The heart is normal in size. Trace pericardial effusion. The RV to LV is normal. The thoracic aorta is normal in caliber, with Mild atherosclerotic plaque. Moderate atherosclerotic calcifications of the coronary vessels. The pulmonary trunk is normal in caliber. VISUALIZED UPPER ABDOMEN: Trace perihepatic and perisplenic ascites. OSSEOUS STRUCTURES AND SOFT TISSUES: Superior endplate compression deformity at T12. No focal osseous lesions are detected. The soft tissues appear normal. IMPRESSION Moderate right pleural effusion with associated basilar atelectasis. Trace pericardial effusion. Trace perihepatic and perisplenic ascites in the visualized abdomen. Preliminary Report Dictated by Resident: Kym Baumann I, Kenneth Potter MD., have reviewed this study and agree with the above report. Lab Results: Lab Results CBC WITH DIFF - Abnormal Result Value Ref Range WBC 5.97 4.20 - 10.70 10*3/?L RBC 3.93 (*) 4.26 - 5.52 10*6/?L HGB 11.1 (*) 12.2 - 16.4 g/dL HCT 35.9 (*) 38.4 - 49.3 % MCV 91.3 81.7 - 95.6 fL MCH 28.2 26.1 - 32.7 pg MCHC 30.9 (*) 31.2 - 35.0 g/dL RDW-SD 48.4 38.5 - 51.6 fL RDW-CV 14.6 12.1 - 15.4 % PLT 124 (*) 150 - 328 10*3/?L MPV 11.8 9.8 - 13.0 fL IPF % 4.7 1.2 - 10.7 % NRBC/100 WBC 0.0 0.0 - 10.0 /100 WBCs NRBC x10 3 <0.01 10*3/?L GRAN MAT (NEUT) % 72.2 % IMM GRAN % 0.50 % LYMPH % 11.4 % MONO % 9.7 % EOS % 5.4 % BASO % 0.8 % GRAN MAT x10 3 (ANC) 4.31 1.99 - 6.95 10*3/uL IMM GRAN x10 3 0.03 0.00 - 0.06 10*3/uL LYMPH x10 3 0.68 (*) 1.09 - 3.23 10*3/uL MONO x10 3 0.58 0.36 - 1.02 10*3/uL EOS x10 3 0.32 0.06 - 0.53 10*3/uL BASO x10 3 0.05 0.01 - 0.09 10*3/uL COMP. METABOLIC PANEL (20644) - Abnormal NA 137 135 - 145 mmol/L K 6.4 (*) 3.5 - 5.0 mmol/L CL 101 98 - 108 mmol/L CO2 TOTAL 21 (*) 23 - 31 mmol/L AGAP 15 2 - 16 BUN 62 (*) 7 - 23 mg/dL GLUCOSE 113 (*) 70 - 110 mg/dL CREATININE 11.89 (*) 0.60 - 1.25 mg/dL TOTAL BILI 0.8 0.1 - 1.1 mg/dL CALCIUM 7.8 (*) 8.6 - 10.6 mg/dL T PROTEIN 7.2 6.3 - 8.2 g/dL ALBUMIN 3.9 3.5 - 5.0 g/dL ALK PHOS 101 34 - 122 U/L ALTv 16 5 - 50 U/L AST(SGOT) 26 13 - 40 U/L eGFR 4.6 mL/min/1.73m2 PROTHROMBIN TIME / INR - Abnormal PROTIME PATIENT 14.3 (*) 10.1 - 12.6 Seconds INR 1.2 N-TERMINAL PRO-BNP - Abnormal NT-proBNP 109,000 (*) <=125 pg/mL TROPONIN I - Normal TROPONIN I 0.032 <=0.034 ng/mL MRSA / MSSA SCREEN BY CHAR [place] POCT GLUCOSE(AGE >30DAYS) POCT GLUCOSE(AGE >30DAYS) POCT GLUCOSE(AGE >30DAYS) EKG: If EKG completed, see Procedure Note. Orders and Treatments: Orders Placed This Encounter Procedures CT Thorax wo contrast CBC WITH DIFF COMP. METABOLIC PANEL (14251) TROPONIN I PROTHROMBIN TIME / INR N-TERMINAL PRO-BNP MRSA / MSSA Screen by PCR, Nares Potassium Serum - If 2-Hour STAT Potassium </= 5.8 mEq/L, Draw Serum Potassium Q8H x 3 POCT Glucose (AGE >30 DAYS) - Prior to Insulin Bolus Administration - See Comments POCT Glucose (AGE >30 DAYS) - 1 Hour After Regular Insulin Administration STAT POCT Glucose (AGE >30 DAYS) - 2 Hours After Regular Insulin Administration STAT POCT Glucose (AGE >30 DAYS) POCT GLUCOSE (AUTOMATED) POCT GLUCOSE (AUTOMATED) Basic Metabolic Panel (NA, K, CL, CO2, GLUCOSE, BUN, CREATININE, CA) POCT GLUCOSE (AUTOMATED) Consult Nephrology: ESRD Patient Needing Dialysis Orders Placed This Encounter Medications morphine (2 mg/mL) injection 2 mg FENTanyl (PF) (SUBLIMAZE) injection 50 mcg heparin (porcine) injection 5,000 Units dextrose 50 % in water (D50W) injection 25 mL glucagon HCL injection 1 mg DISCONTD: sodium zirconium cyclosilicate (LOKELMA) 10 gram packet 10 g calcium gluconate 2 g in NaCl 100 mL (ISO-OSM) RTU IV infusion 2 g DISCONTD: furosemide (LASIX) injection 80 mg dextrose 50 % in water (D50W) injection 50 mL insulin regular human (HUMULIN R) injection 8 Units dextrose 10% (D10W) bolus infusion 125 mL insulin lispro (human) (HumaLOG U-100) injection 2 Units amLODIPine 10 mg tablet amitriptyline 25 mg tablet desloratadine 5 mg tablet fluticasone propionate 50 mcg/actuation nasal spray gabapentin 100 mg capsule olmesartan 20 mg tablet pramipexole 0.125 mg tablet pregabalin 25 mg capsule acetaminophen (TYLENOL) tablet 650 mg HYDROcodone-acetaminophen (NORCO 5) tablet 1 tablet DISCONTD: morphine (2 mg/mL) injection 2 mg carvediloL (COREG) tablet 12.5 mg amLODIPine (NORVASC) tablet 5 mg amitriptyline (ELAVIL) tablet 25 mg calcium acetate(phosphat bind) (PHOSLO) capsule 667 mg atorvastatin (LIPITOR) tablet 20 mg latanoprost (XALATAN) 0.005 % ophthalmic drops 1 Drop pramipexole (MIRAPEX) tablet 0.125 mg sodium bicarbonate (ANTACID (SODIUM BICARBONATE)) tablet 650 mg gabapentin (NEURONTIN) capsule 100 mg First Provider Eval: ED Events Date/Time Event User Comments 03/11/25917 Medical Screening Begins MONIKA SPRAGUE -- 03/11/25917 First Provider Evaluation MONIKA SPRAGUE -- ED COURSE Diagnosis/Impression as of 03/11/25 1832 Fall, initial encounter Pleural effusion Results Procedures: EKG-12 Lead ROUTINE ONCE Date/Time: 03/11/2025 12:20 PM Performed by: Monika Trujillo FNP Authorized by: John Real MD ECG interpreted by ED Physician in the absence of a hydroelectric mechanic: yes Previous ECG: Previous ECG: Compared to current Rate: ECG rate: 98 Rhythm: Rhythm: sinus rhythm Q waves: Abnormal Q-waves: not present MDM: Assessment & Plan Medical Decision Making Jeevan Ordaz Jr. is a 54-year-old male with a history of hypertension, diabetes, and ESRD who presents following a fall with severe left chest pain. He missed his dialysis session today and was found to have a critically elevated potassium level of 6.4 and a markedly elevated proBNP of 109,000, indicating possible volume overload and cardiac strain. CT chest revealed a right pleural effusion with associated right lung findings. Given his elevated potassium, pleural effusion, and missed dialysis, he was admitted to the ICU for close monitoring, urgent dialysis, and management of hyperkalemia and possible fluid overload. Problems Addressed: Fall, initial encounter: complicated acute illness or injury Pleural effusion: undiagnosed new problem with uncertain prognosis Amount and/or Complexity of Data Reviewed External Data Reviewed: labs, radiology, ECG and notes. Labs: ordered. Decision-making details documented in ED Course. Radiology: ordered. Decision-making details documented in ED Course. ECG/medicine tests: ordered and independent interpretation performed. Risk Prescription drug management. Parenteral controlled substances. Decision regarding hospitalization. Flowsheet Documentation: Scoring Tools: No data recorded Disposition/Condition: ED Disposition ED Disposition Admit - ICU Condition -- Comment -- Discharge Medications: Current Discharge Medication List STOP taking these medications amitriptyline 25 mg tablet Comments: Reason for Stopping: amLODIPine 10 mg tablet Comments: Reason for Stopping: desloratadine 5 mg tablet Comments: Reason for Stopping: fluticasone propionate 50 mcg/actuation nasal spray Comments: Reason for Stopping: gabapentin 100 mg capsule Comments: Reason for Stopping: olmesartan 20 mg tablet Comments: Reason for Stopping: pramipexole 0.125 mg tablet Comments: Reason for Stopping: pregabalin 25 mg capsule Comments: Reason for Stopping: methocarbamoL 500 mg tablet Comments: Reason for Stopping: calcium acetate,phosphat bind, 667 mg capsule Comments: Reason for Stopping: latanoprost 0.005 % ophthalmic drops Comments: Reason for Stopping: sodium bicarbonate 650 mg tablet Comments: Reason for Stopping: lancets (FREESTYLE LANCETS) 28 gauge Misc Comments: Reason for Stopping: blood sugar diagnostic strip Comments: Reason for Stopping: Blood-Glucose Meter Kit Comments: Reason for Stopping: sildenafiL (VIAGRA) 100 mg tablet Comments: Reason for Stopping: lisinopriL-hydrochlorothiaz margarita 20-25 mg per tablet Comments: Reason for Stopping: atorvastatin 20 mg tablet Comments: Reason for Stopping: Follow-up: Electronically signed by: Monika Trujillo FNP 03/11/251839 Monika Trujillo FNP 03/11/251839 Cosigned by Harry Thrasher DO at 03/13/2025 4:43 PM CDT Associated attestation - Harry Thrasher DO - 03/13/2025 4:43 PM CDT I was available for consultation at all times during the patient encounter and present in the Emergency Department providing general supervision. However, I did not see or evaluate the patient. Patient seen and evaluated by RIDGE. [facility] 2024-12-21 20:30:00 PT ELOPE PRIOR TO DISPO. LAST SEEN IN STABLE CONDITION, AOx4, NO ATAXIA NOTED. PT DID NOT NOTIFY STAFF OR SIGN AMA PAPERS. Mariza Harris RN [facility] 2024-12-21 18:28:22 Pt states he has a fever, tired, cough, sore throat, runny nose x2days. Went to ER but left due to waiting time. Completed dialysis today, goes T, Th, Sat. 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 is a 54 year old male Patient is calling, he wants to speak with a nurse he has tingling in his feet, numbness, he feeling of anxiety, unable to sleep for a few months now is getting worse. ICA Ulloa RN [facility] 2024-10-19 09:13:00 Adult Triage Assessment Last Clinic Visit: 09/07/24 hospital admission Primary Symptom: "my feet from my ankles down are numb, tingling" "I went on [employer] and it said to call my neurologist" [...] present > 4 weeks) Protocols used: Neurologic [place]-[id number]-XD Nurse Note: after assessment, pt was provided call back parameters. Encounter routed to clinic for sooner appt per protocol. Access Center Selene Ulloa RN [facility] 2024-09-10 10:20:08 TRANSITIONAL CARE MANAGEMENT ASSESSMENT 09/10/2024 Jeevan Ordaz Jr. [id number] Jeevan Ordaz Jr. is a 54 year old /White male was admitted on 09/07/[address] He was discharged on 09/08/24 with discharge disposition of HR- Routine Discharge. Admitting Physician: Guilherme Sheth Discharge Diagnosis: FINAL DIAGNOSIS: (the reason, after study, for admitting the patient to the hospital) Hyperkalemia 2/2 Missed Dialysis No linked episodes TCM [id number] outreach documentation: Discharge Assessment Chart Assessed: 09/10/24 Chart Reviewed - Post Discharge Call Deferred due to Change in Discharge Status.: Discharged to [place] TCM Outreach Completed: 09/10/24 Future Appointments: ICA Salguero RN [facility] 2024-09-08 11:23:02 Problem: Falls, Risk of Goal: Absence of falls Outcome: Progressing as expected Problem: Pain Goal: Control of pain at or below patient's documented comfort goal Outcome: Progressing as expected Problem: Glucose control Goal: Glucose level within specified parameters Outcome: Progressing as expected ICA Walsh RN [facility] 2024-09-08 01:47:06 Problem: Falls, Risk of Goal: Absence of falls Outcome: Progressing as expected Problem: Pain Goal: Control of pain at or below patient's documented comfort goal Outcome: Progressing as expected Problem: Glucose control Goal: Glucose level within specified parameters Outcome: Progressing as expected NING EXECUTIVE [facility] 2024-09-07 23:11:50 Patient transferred to [facility] for diagnosis of Chest pain, hyperkalemia, CKD, Hypermagnesemia, Hypocalcemia, Sinus Tachycardia Patient agrees to transfer/admit plan and verbalized understanding of plan of care, family aware of plan Patient awake alert, oriented, resp reg unlabored, skin w/d PIV patent, no s/s infiltration noted, No adverse reaction to medications given while in ED. Report given to [facility] personnel NING EXECUTIVE Cristian Schafer RN [facility] 2024-09-07 22:57:30 Report to JOAN Mars at [facility]. NING EXECUTIVE [facility] 2024-09-07 22:51:37 Nurse Report Report given to JOAN Lagunas. Chief complaint, assessment findings, infusion verify and orders reviewed. Plan of care discussed with both nurses ICA Clayton RN [facility] 2024-09-07 18:36:14 Patient arrives via EMS coming from senior care with c/o chest pain x 1 hour. Patient given nitro SL 0.4 in route and ASA 324 PO. Patient describes his chest pain as chest pressure. Patient has missed his last 2 dialysis appointments. Hypertensive in triage. Placed on monitor . PD at bedside ICA Galicia RN [facility] 2024-07-15 14:15:00 Images from the original note were not included. Venipuncture collection performed by clean technique on the right anticubitus. Total of 1 attempts were made. Slight pressure and a bandage/dressing were applied to the site(s). The patient experienced no complications. The following specimens were processed according to instructions and sent to [facility] laboratories per lab order on 07/15/2024: LT BLUE SST 1 RED LAV PPT DK GREEN (LiHep) DK GREEN (SodH) MAXWELL DK BLUE (K2) DK BLUE (S) ACD Blood Culture NIPT/NTD [facility] 2024-07-15 13:40:11 Pt received call from dialysis center and was told to go to lab and does not need to be seen at ED. Pt eloped at this time from triage. [facility] 2024-07-15 13:33:08 Pt states he hasn't had dialysis in 8-9 days due to noncompliance and mental health issues. Last dialysis 07/04. Gets dialysis Monday, , Monday. Currently denies sxs. [facility] Mariza Harris RN [facility] 2024-04-03 06:09:00 Pt given printed and [...] in no apparent distress. Margaret Ramires RN [facility] 2024-04-03 03:30:46 Pt states around 1800 today he began to have pain under the right shoulder blade. Pt denies any SOB. Nesha Huber RN [facility] 2024-04-03 03:26:00 [facility] Emergency Department Note Patient Name: Jeevan Ordaz Jr. Date of : 1970 53 year old male Treatment Room: TX3/TX3 Primary Care Physician: Jeremiah Crawford Patient Escorted by: Family [5] Mode of Arrival: Personal means [1] EMS Treatment Prior to ED Arrival: GRAIN WEIGHER treatment: None Travel and Exposure Screening: Symptoms [...] Left 02/29/2024 Surgeon: Andrei Yanes MD; Location: [facility] DIRECT LARYNGOSCOPY N/A 01/08/2018 Surgeon: Petey Looney [...] -- ED COURSE Diagnosis/Impression as of 04/03/24 06 Acute right-sided thoracic back pain Procedures: Procedures [...] PROPIONATE 50 MCG/ACTUATION NASAL SPRAY Use 1 Isabela in each nostril. HYDROCODONE-ACETAMINOPHEN 5-325 MG TABLET Take 1 tablet by mouth. LANCETS (FREESTYLE LANCETS) [address] [facility] USE ONE LANCET TO CHECK BLOOD GLUCOSE 2 TO 3 TIMES A DAY LATANOPROST 0.005 % OPHTHALMIC DROPS Place 1 Drop in both eyes every evening. LISINOPRIL-HYDROCHLOROTHIAZ MARGARITA 20-25 MG PER TABLET Take 1 tablet [...] Electronically signed by: Berenice Asher DO 04/03/24601 [facility] 2024-03-05 12:27:02 Called and spoke to patient. Doing better. Will follow up in clinic [facility] 2024-03-01 13:45:44 Images from the original note [...] controlled. Patient verbalized understanding. Per discharge note: [facility] Deborah Kaplan RN [facility] 2024-02-29 10:01:48 Patient: Jeevan Ordaz Jr. Procedure Summary Date: 02/29/24 Room / Location: [place] [address] / [facility] Anesthesia Start: 719 Anesthesia Stop: 911 Procedure: ARTERIOVENOUS FISTULA CREATION (Left: Arm) Diagnosis: ESRD (end stage renal disease) (ESRD (end stage renal disease) [N18.6], ARTERIOVENOUS FISTULA CREATION) Surgeons: Andrei Yanes MD Responsible Provider: Patrick Whyte MD Anesthesia Type: General, TIVA, MAC, Regional ASA Status: 3 Anesthesia Type: General, TIVA, MAC, Regional Last vitals BP (!) 144/80 (02/29/24 0945) Temp Pulse 68 (02/29/24 0945) Resp (!) 4 (02/29/24 0945) SpO2 98 % (02/29/2445) There were no known notable events for this encounter. Anesthesia Post Evaluation Patient location during evaluation: PACU Patient participation: complete - patient participated Level of consciousness: awake and alert Pain score: 0 Pain management: satisfactory to patient Multimodal analgesia pain management approach Airway patency: patent Cardiovascular status: acceptable and blood pressure returned to baseline Respiratory status: acceptable Hydration status: acceptable AN-ANESTHESIOLOGY ANESTHESIOLOGIST [facility] 2024-02-29 07:59:00 BRIEF OPERATIVE NOTE Date of Surgery: 02/29/2024 Surgeons and Role: * Andrei Yanes MD - Primary * Carlos Ramírez MD - Resident - Assisting Pre-Op Diagnosis: ESRD (end stage renal disease) [N18.6] Post-Op Diagnosis Codes: * ESRD (end stage renal disease) [N18.6] Procedures: Procedure(s) (LRB): ARTERIOVENOUS FISTULA CREATION (Left) CPT: 60406, 64496, 36846, 06004, 48203, 42145, Any Complications Encounters: None Estimated Blood Loss: 10cc Specimens Removed: * No specimens in log * * No implants in log * Patient's Condition: Good Findings: Brachiocephalic AVF created. Palpable thrill. Distal radial pulse palpated Any other important information: None Please see dictated operative report for additional detail. [facility] 2024-02-23 08:46:48 NOT $$ CLEARED NOT CONTRACTED FOR TRANSPLANT LETTER SENT Submitted for financial review 02/21/24 Pati Blank [facility] 2024-02-21 11:02:24 Referral received via: fax How did the patient hear about our program: outreach Submitted for financial clearance Insurance Information: Tereza ID#[id number] ph: SSN: [id number] Weight: 156lbs Height: 5'8" Referring MD: Member Name Role and Specialty Contact Info Address Comments Jeremiah Crawford DO Referring Pager: [phone] Email: [email or web address] [place] [address] - acting manager: What caused the patients' disease? unknown Is the patient on dialysis? yes [facility] Address: [address] [address] Which organ are you referring the patient [...] heart disease: no Do you have a hydroelectric mechanic? No Have you ever had any amputations? [...] yes: Please have your living donor call [phone] and and speak to the Living Donor Industrial Spraypainter Coordinator. 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 Hold on DOS. Phentermine: Alert [facility] anesthesiologist SGLT2 Inhibitors: "gliflozins" to be [...] propionate 50 mcg/actuation nasal spray Use 1 Isabela in each nostril. latanoprost 0.005 % ophthalmic drops Place 1 Drop in both eyes every evening. sodium bicarbonate 650 mg tablet TAKE 1 TABLET BY MOUTH IN THE MORNING AND 1 AT NOON AND 1 IN THE EVENING WITH MEALS traZODone 50 mg tablet Take 1 tablet by mouth as needed. lancets (FREESTYLE LANCETS) 28 gauge Misc USE ONE LANCET TO CHECK BLOOD GLUCOSE [...] tablet by mouth daily. 12 tablet 1 lisinopriL-hydrochlorothiaz margarita 20-25 mg per tablet Take 1 tablet [...] Left 01/10/2018 Surgeon: Nitish Bajwa MD; Location: [facility] OR Location TUNNELED CATHETER (SHX) 02/02/2024 RT [...] mask Anesthesia plan discussed with: patient or payable representative Post-Operative Analgesia: routine analgesia & antiemetics and nerve block for post-op analgesia Recovery Plan: PACU Additional comments: NPO>8hrs. Consent obtained and questions answered. Pt agrees with anesthetic plan. BELKSI Mota [facility] 2024-02-15 14:35:49 Images from the original note were not included. Your procedure is at [facility] on 02/29/24. The [address] is [address] [place] [address], [address]. [facility] nursing staff will call you the workday [...] Anticoagulants will be per physician guidance. Medication Note(s)/Instructions:Instru cted to hold lisinopril-HCTZ day before and morning [...] voiced no further questions at this time. [facility] 2024-02-07 08:57:38 Spoke with patient and spouse. Educated dialysis nurse should be maintaining dressing changes during dialysis. States they have not been set up for dialysis s/p permacath placement. Instructed patient to reach out to nephrology (Dr Crawford) to set up dialysis. Patient and spouse verbalized understanding. Patient to contact the clinic if unable to get in with dialysis. Deborah Kaplan RN [facility] 2024-02-06 17:15:31 Jeevan Ordaz Jr. is a 53 year old male pt and spouse are calling to check the status of the call back. Kathy Johnston 02/06/2024 5:16 PM Kathy Johnston [facility] 2024-02-06 16:26:37 Pt had surgery with Dr. Moscoso 02/01/25 and is calling stating he is needing his dressing changed and was not given any supplies. Pt has PO appt 02/15/24, please advise and assist. Lucila Gage [facility] 2024-02-03 19:23:02 Pt told registration that they were leaving didn't want to wait. Yoselin Johnson RN [facility] 2024-02-03 18:47:37 Patient states: "I had surgery yesterday for dialysis catheter placement. Today I noticed it leaking with blood and fluid." Val Malcolm RN [facility] 2024-02-02 16:15:00 Images from the original note were not included. Venipuncture collection performed by clean technique on the left anticubitus. Total of 1 attempts were made. Slight pressure and a bandage/dressing were applied to the site(s). The patient experienced no complications. The following specimens were processed according to instructions and sent to [facility] laboratories per lab order on 02/02/2024: LT BLUE SST 1 RED LAV 1 PPT DK GREEN (LiHep) DK GREEN (SodH) MAXWELL DK BLUE (K2) DK BLUE (S) ACD Blood Culture NIPT/NTD [facility] 2024-02-01 09:44:30 Spoke with spouse, aware procedure is scheduled for 02/02/24 and that day surgery would be calling today and to be sure to answer. Spouse verbalized understanding. Deborah Kaplan RN [facility] 2024-02-01 08:58:18 Images from the original note were not included. Your procedure is at [facility] on 02/02/24. The address is [address] [place] [address], [address]. [facility] nursing staff will call you the workday [...] Anticoagulants will be per physician guidance. Medication Note(s)/Instructions:Instru cted to hold lisinopril-HCTZ today and tomorrow morning [...] voiced no further questions at this time. [facility] 2024-02-01 08:54:03 I believe the patient has been rescheduled for 02/02/2024, however if he does not respond for preoperative instructions his case will be cancelled again. T [facility] 2024-02-01 08:15:00 The patient was called for [...] out and reschedule. Message sent to Jael Dr. Moscoso's nurse. [facility] Telma Olvera RN [facility] 2024-01-31 15:20:52 Patient and spouse present [...] requesting patient call office. Jael Ruiz RN [facility] 2024-01-30 11:54:01 Could we see if we can get the patient back on the schedule for this Monday please? [facility] 2024-01-30 09:25:25 Called patient back to [...] any questions. Number provided. Yany Miller RN [facility] 2024-01-30 08:08:38 Jeevan Ordaz JrGerald is a 53 year old male Patient is calling back upset requesting to speak with staff to discuss cancellation of surgery. Please contact at earliest convenience RIOT Valery Mcmahon [facility] 2024-01-30 07:59:06 Jeevan Ordaz Jr. is a 53 year old male Pt is extremely upset that his surgery was cancelled and no one called him to cancel. Pt would like to know what he is supposed to do now. Please contact pt. Rosita Manuel [facility] 2024-01-29 12:26:42 Attempted to call X 10, text message X 2, to speak with patient to complete pre-op screening call. All available numbers attempted. Sent cancellation. Yany Miller RN [facility] 2024-01-29 11:55:44 Attempted to call every number listed for this patient, including emergency contacts. Patient not answering, messages left that if he does not call today before noon that surgery will be canceled. Also texted patient and child's listed number and informed them that way as well. Jael Ruiz RN [facility] 2024-01-22 13:00:00 Addended by: HOWARD GONZALEZ LVN on: 01/22/2024 03:06 PM Modules accepted: Orders [facility] 2023-12-28 13:01:50 Reason for Referral/Presenting Complaint: Preoperative cardiovascular examination (prior to AV fistula surgery). Preoperative cardiovascular faxed to Dr. Crawford. [facility] Fax number: [phone] Care Team: [address] [place] [address] [facility] 2023-10-12 15:00:11 Jeevan Ordaz Jr is a 53 year old male is calling to discuss assistance with payments. Please call him at [phone] NING EXECUTIVE Kristyn Ospina [facility] 2023-10-10 15:44:47 Called INDIRA Lara we are no in network with his insurance. Self pay dinh is 136.50. NING EXECUTIVE Slime Ramires [facility] 2023-09-15 22:36:58 Patient leaving AMA/without final [...] with steady gait, appears in no distress NING EXECUTIVE Nesha Huber RN [facility] 2023-09-15 22:35:35 Patient requested to speak to Singer SORIA. Patient changed his mind and does not want to be admitted to hospital at this time. Risks explained to patient and patient was able to verbalize risks and reports understanding. AMA form signed. IV line removed. Patient in stable condition when leaving the ER. Ambulatory with steady gait. ICA Champion RN [facility] 2023-09-15 22:09:53 Nurse Report Report given to JOAN Sawyer over the phone, no questions received. Chief complaint, assessment findings and medications were discussed. Plan of care discussed with patient, patient aware of plan. Patient in stable condition at time report was given,no distress. Vital signs reassessed. Patient pending EMS to pick remover and transport. Ashley Champion RN [facility] 2023-09-15 21:12:11 Patient given a sandwich and juice - tolerating well. [facility] 2023-09-15 18:58:01 Patient's name and verified [...] of plan of care. Ashley Champion RN [facility] 2023-09-15 18:20:12 Patient states: "I was at [facility] 3 days ago and they diagnosed me [...] prescriptions. Took 40 mg lisinopril 30 mins scow captain. NING EXECUTIVE [facility] 2023-09-15 18:00:00 [facility] Emergency Department Note Patient Name: Jeevan Ordaz Jr Date of : 1970 53 year old male Treatment Room: CA2/[facility] Primary Care Physician: Jeremiah Crawford Patient Escorted by: Self [9] Mode of Arrival: Personal means [1] EMS Treatment Prior to ED Arrival: GRAIN WEIGHER treatment: None Travel and Exposure Screening: Symptoms [...] 09/15/2023 18:25 Patient states: "I was at [facility] 3 days ago and they diagnosed me [...] prescriptions. Took 40 mg lisinopril 30 mins scow captain. Original note by Andreina Hoffman RN [...] N/A 01/08/2018 Surgeon: Petey Looney MD; Location: [facility] OR Location EYE SURGERY INCISION AND DRAINAGE OF ABSCESS Left 01/10/2018 Surgeon: Nitish Bajwa MD; Location: [facility] OR [facility] Review of Systems: Review of Systems [...] CHEST 1 VW Final Result ORDERING PHYSICIAN: HARRY THRASHER CLINICAL HISTORY: shortness of breath TECHNIQUE: [...] 0.01 - 0.09 10*3/uL COMP. METABOLIC PANEL (83701) - Abnormal NA 138 135 - 145 [...] VW Cbc with Diff Comp. Metabolic Panel (01736) N-Terminal Pro-Bnp Troponin I Urinalysis RAPID INFLUENZA [...] 8,290 [PS] ED Course User Index [PS] Harry Thrasher DO Diagnosis/Impression as of 09/15/232236 Secondary hypertension Acute renal failure, unspecified acute renal failure type Congestive heart failure, unspecified HF chronicity, unspecified heart failure type Procedures: Procedures MDM: Medical Decision Making Jeevan Ordaz Jr is a 53 year old male with new onset renal failure. Book Cutter 7 from 1.9. BNP elevated 8300. Tachycardic. No hypoxia. Accelerated hypertension. Coordinated admission at [facility]. Prior to ambulance arriving patient declined admission after prolonged conversation regarding severity of illness and necessity for admission. Patient concerned about his son travelling to see him and he believes that he feels better and is ok to go home. Explained that his feeling better is not conducive with his medical needs. He continued to decline admission. Unfortunately he decided to leave A. The patient is clinically not intoxicated, free [...] times daily. LANCETS (FREESTYLE LANCETS) [address] [facility] USE ONE LANCET TO CHECK BLOOD GLUCOSE 2 TO 3 TIMES A DAY LISINOPRIL-HYDROCHLOROTHIAZ MARGARITA 20-25 MG PER TABLET Take 1 tablet [...] on file Follow-up: Contact information for follow-up Jeremiah Crawford DO Specialty: IM-NEPHROLOGY Relationship: PCP - [address] [place] [address] Electronically signed by: Harry Thrasher DO 09/15/23 6701 [facility]
--- NOTE | 2025-06-28 18:30 | RAD REPORT ---
EXAMINATION: US RIGHT LOWER EXTREMITY VENOUS DOPPLER CLINICAL INDICATION: SWELLING RIGHT TECHNIQUE: Complete bilateral duplex sonography of the RIGHT lower extremity veins was performed. The examination included compression for vein patency, color Doppler imaging and flow augmentation in response to distal compression of the distal external iliac, common femoral, femoral, popliteal, tibi al, and great and small saphenous veins. COMPARISON: No prior exam. FINDINGS: Duplex sonography testing of the veins of the RIGHT lower extremity was performed. Color flow imaging shows all veins to be compressible with [id number] color filling. Pulsatile and phasic flow is present within all lower extremity deep and superficial veins examined. IMPRESSION: There is no deep vein or superficial vein thrombosis.
[2025-06-28] MEDS ORDERED: CYCLOBENZAPRINE 10 MG TAB ONE (18:41)
[2025-06-28] MEDS ORDERED: HYDROCODONE/APAP 5/325 MG TAB ONE (18:41)
--- NOTE | 2025-06-28 18:43 | EDPHYS ---
Physician Documentation [facility] Name: Amor Ramírez Jr Age: 55 yrs Sex: Male : 1970 Arrival Date: 06/28/2025 Time: 16:30 Bed 16 Private MD: ED Physician Michael Castelan HPI: 06/28 20:09 This 55 yrs old Male presents to ER via Wheelchair with complaints of Leg Pain dr5 - RT. 20:09 Onset: The symptoms/episode began/occurred 4 day(s) ago. Patient is a 55-year-old male dr5 with history of ESRD, hyperlipidemia, hypertension, restless leg syndrome, diabetes coming in with right upper leg pain has been going on for 4 days. Patient reports he had dialysis today and was recommended to come here for evaluation of gout. Patient denies chest pain, shortness of breath, abdominal pain, nausea, vomit, diarrhea. Patient denies rash on leg. Historical: - PMHx: 17:06 ESRD- Dialysis T; t, th, sat; Hypercholesterolemia; Hypertension; restless leg me1 syndrome; TIA; Diabetes mellitus; neuropathy; legally blind; - PSHx: 17:06 Dialysis fistula- left arm; left eye surgery; me1 - Immunization history:: Adult Immunizations up to date. - Infectious Disease History:: Denies. - Social history:: Smoking status: Patient denies any tobacco usage or history of. ROS: 20:09 Constitutional: as per hpi dr5 Exam: 20:09 Constitutional: This is a well developed, well nourished patient who is awake, alert, dr5 and in no acute distress. Head/Face: Normocephalic, atraumatic. Eyes: Pupils equal round and reactive to light, extra-ocular motions intact. Lids and lashes normal. Conjunctiva and sclera are non-icteric and not injected. Cornea within normal limits. Periorbital areas with no swelling, redness, or edema. Neck: Trachea midline, no thyromegaly or masses palpated, and no cervical lymphadenopathy. Supple, full range of motion without nuchal rigidity, or vertebral point tenderness. No Meningismus. Chest/axilla: Normal chest wall appearance and motion. Nontender with no deformity. No lesions are appreciated. Cardiovascular: Regular rate and rhythm with a normal S1 and S2. Normal PMI, no JVD. No pulse deficits. Respiratory: Lungs have equal breath sounds bilaterally, clear to auscultation. No rales, rhonchi or wheezes noted. No increased work of breathing, no retractions or nasal flaring. Back: No spinal tenderness. No costovertebral tenderness. Full range of motion. Skin: Warm, dry with normal turgor. Normal color with no rashes, no lesions, and no evidence of cellulitis. MS/ Extremity: Pulses equal, no cyanosis. Neurovascular intact. Full, normal range of motion. Neuro: Awake and alert, GCS 15, oriented to person, place, time, and situation. Cranial nerves II-XII grossly intact. Motor strength 5/5 in all extremities. Sensory grossly intact. Cerebellar exam normal. Normal gait. Vital Signs: 17:02 BP 129 / 68; Pulse 87; Resp 17; Temp 98.6; Pulse Ox 93% ; Weight 80.74 kg; Height 5 ft. me1 8 in. ; Pain 10/10; 17:02 Body Mass Index 27.06 (80.74 kg, 172.72 cm) me1 17:02 Pain Scale: Adult me1 MDM: 16:39 Medical Screening Exam initiated dr5 20:09 Differential diagnosis: contusion, abrasion, DVT. Data reviewed: vital signs, nurses dr5 notes, radiologic studies, ultrasound. Consideration of Admission/Observation Escalation of care including admission/observation considered. Escalation considered patient found to have DVT. I considered the following discharge prescriptions or medication management in the emergency department I discussed and recommended Over The Counter medications, Medications were administered in the Emergency Department. See MAR. Care significantly affected by the following chronic conditions: ESRD, hyperlipidemia, hypertension. Care significantly affected by the following Social Determinants of Health: Poor access to healthcare and/or lack of insurance, Poor access to transportation, Problems related to employment. Counseling: I had a detailed discussion with the patient and/or guardian regarding the historical points, exam findings, and any diagnostic results supporting the discharge/admit diagnosis, the presence of at least one elevated blood pressure reading (>120/80) during this emergency department visit, lab results, radiology results, the need for outpatient follow up, for definitive care, a family practitioner, to return to the emergency department if symptoms worsen or persist or if there are any questions or concerns that arise at home. Special discussion: I discussed with the patient/guardian in detail that at this point there is no indication for admission to the hospital. It is understood, however, that if the symptoms persist or worsen the patient needs to return immediately for re-evaluation. Based on the history and exam findings, there is no indication for further emergent testing or inpatient evaluation. I discussed with the patient/guardian the need to see the primary care provider for further evaluation of the symptoms. ED course: Ultrasound completed to rule out DVT of right upper extremity. No rash or abnormality noted to right upper leg. Will give patient medication for muscle strain have patient follow-up primary care doctor. All questions. Strict ER precautions given. Patient ambulatory on discharge.. 06/28 17:52 Order name: US Extremity Venous Unilateral Ltd; Complete Time: 18:34 dr5 Administered Medications: 18:45 Drug: HYDROcodone-acetaminophen PO 5 mg-325 mg 2 tabs PO once Route: PO; [facility] 19:07 Follow up: Response: Medication administered at discharge. [facility] 18:45 Drug: Cyclobenzaprine PO 10 mg PO once Route: PO; 4 19:07 Follow up: Response: Medication administered at discharge. 4 Disposition Summary: 06/28/25 18:43 Discharge Ordered Notes: Location: Home dr5 Condition: Stable dr5 Diagnosis - Pain in right leg dr5 Followup: dr5 - With: Emergency Department - When: As needed - Reason: Worsening of condition Followup: dr5 - With: Private Physician - When: 1 - 2 days - Reason: Recheck today's complaints, Continuance of care, Re-evaluation by your physician Discharge Instructions: - Discharge Summary Sheet dr5 - Musculoskeletal Pain dr5 Forms: - Medication Reconciliation Form dr5 - Prescription Opioid Use dr5 - Patient Portal Instructions dr5 - Leadership Thank You Letter dr5 Prescriptions: - Tramadol 50 mg Oral Tablet - take 1 tablet ORAL route every 8 hours as needed; 12 tablet; Refills: 0, dr5 Product Selection Permitted Signatures: Dispatcher [employer] Ronal Corley RN RN jb4 Bruna Lo RN RN me1 Isaiah Hernandez, [employer] YOUTH MANAGER-Cdr5 Corrections: (The following items were deleted from the chart) 17:08 17:06 Allergies: NKDA; me1 me1 17:08 17:06 PMHx: Diabetes - IDDM; me1 me1 17:08 17:06 PMHx: ESRD- Dialysis T; me1 me1 17:08 17:06 PMHx: ESRD- Dialysis T; me1 me1
--- NOTE | 2025-06-28 18:43 | ER ---
Nurse's Notes [facility] Name: Amor Ramírez Jr Age: 55 yrs Sex: Male : 1970 Arrival Date: 06/28/2025 Time: 16:30 Bed 16 Private MD: Diagnosis: Pain in right leg Presentation: 06/28 17:02 Chief complaint: Patient states: c/o right leg pain that started 4 days ago, pain it to me1 anterior thigh muscles, sharp 10/10. "feels like razor blades are cutting my muscle". Coronavirus screen: Vaccine status: Patient reports receiving the 2nd dose of the covid vaccine. Ebola Screen: No symptoms or risks identified at this time. Initial Sepsis Screen: Does the patient meet any 2 criteria? No. Patient's initial sepsis screen is negative. Does the patient have a suspected source of infection? No. Patient's initial sepsis screen is negative. Risk Assessment: Do you want to hurt yourself or someone else? Patient reports no desire to harm self or others. Onset of symptoms was June 24, 2025. 17:02 Method Of Arrival: Wheelchair me1 17:02 Acuity: YADIEL 3 me1 Historical: - PMHx: 17:06 ESRD- Dialysis T; t, th, sat; Hypercholesterolemia; Hypertension; restless leg me1 syndrome; TIA; Diabetes mellitus; neuropathy; legally blind; - PSHx: 17:06 Dialysis fistula- left arm; left eye surgery; me1 - Immunization history:: Adult Immunizations up to date. - Infectious Disease History:: Denies. - Social history:: Smoking status: Patient denies any tobacco usage or history of. Screenin:04 [facility] ED Fall Risk Assessment (Adult) History of falling in the last 3 months, jb4 including since admission No falls in past 3 months (0 pts) Confusion or Disorientation No (0 pts) Intoxicated or Sedated No (0 pts) Impaired Gait No (0 pts) Mobility Assist Device Used No (0 pt) Altered Elimination No (0 pt) Score/Fall Risk Level 0 - 2 = Low Risk Oriented to surroundings, Maintained a safe environment. Abuse screen: Denies threats or abuse. Nutritional screening: No deficits noted. Tuberculosis screening: No symptoms or risk factors identified. Assessment: 19:04 General: Appears in no apparent distress. uncomfortable, Behavior is calm, cooperative, jb4 appropriate for age. Pain: Complains of pain in lateral aspect of right thigh Pain does not radiate. Pain currently is 10 out of 10 on a pain scale. Neuro: Level of Consciousness is awake, alert, obeys commands, Oriented to person, place, time, situation. Cardiovascular: Patient's skin is warm and dry. Respiratory: Airway is patent Respiratory effort is even, unlabored, Respiratory pattern is regular, symmetrical. Derm: Skin is intact, Skin is pink, warm \\T\\ dry. Musculoskeletal: Circulation, motion, and sensation intact. Range of motion: intact in all extremities. Vital Signs: 17:02 BP 129 / 68; Pulse 87; Resp 17; Temp 98.6; Pulse Ox 93% ; Weight 80.74 kg; Height 5 ft. me1 8 in. ; Pain 10/10; 17:02 Body Mass Index 27.06 (80.74 kg, 172.72 cm) me1 17:02 Pain Scale: Adult de1 ED Course: 16:33 Patient arrived in ED. cj3 16:35 [facility]C [facility]. jb4 16:35 Michael Castelan MD is Attending Physician. jb4 17:06 Triage completed. me1 17:06 Arm band placed on Patient placed in waiting room. me1 18:23 US Extremity Venous Unilateral Ltd In Process Unspecified. EDMS 19:04 Patient has correct armband on for positive identification. Bed in low position. Call jb4 light in reach. Side rails up X 1. Provided Education on: plan of care. 19:04 No provider procedures requiring assistance completed. Patient did not have IV access jb4 during this emergency room visit. Administered Medications: 18:45 Drug: HYDROcodone-acetaminophen PO 5 mg-325 mg 2 tabs PO once Route: PO; jb4 19:07 Follow up: Response: Medication administered at discharge. jb4 18:45 Drug: Cyclobenzaprine PO 10 mg PO once Route: PO; jb4 19:07 Follow up: Response: Medication administered at discharge. jb4 Medication: 19:04 VIS not applicable for this client. jb4 Outcome: 18:43 Discharge ordered by . dr5 19:04 Discharged to home via wheelchair, with family, jb4 19:04 Condition: stable 19:04 Discharge instructions given to patient, Instructed on discharge instructions, follow up and referral plans. medication usage, Demonstrated understanding of instructions, follow-up care, medications, Prescriptions given X 1, 19:08 Patient left the ED. jb4 Signatures: Dispatcher [employer] Ronal Corley, RN RN jb4 Bruna Lo RN RN me1 Isaiah Hernandez, PROPERTY CONSULTANT-C PROPERTY CONSULTANT-Cdr5 Elisha Bower cj3 Corrections: (The following items were deleted from the chart) 17: 17:06 Allergies: NKDA; me1 me1 17: 17:06 PMHx: Diabetes - IDDM; me1 me1 17: 17:06 PMHx: ESRD- Dialysis T; me1 me1 17: 17:06 PMHx: ESRD- Dialysis T; me1 me1
[2025-06-29 00:29] VITALS: BP 129/68; TEMP 98.6; O2SAT 93
== END 2025-06-28 19:08 | disposition home or self-care (01) ==
LOC: ER 16:30
DX: M79.661 Pain in right lower leg (principal)
CPT/HCPCS: 93971; 99283